=== PATIENT | male | born 1940 | race Caucasian/White ===

== ENCOUNTER → 2020-05-13 10:40 | Outpatient (CLI) | payer MEDICARE, SELFPAY ==
--- NOTE | 2020-05-13 10:50 | XR_ITS ---
PROCEDURE: XR CHEST 2V CLINICAL HISTORY: CHEST PAIN AT REST,SOB,CAD COMPARISON: No exams were available for comparison FINDINGS: There has been a prior CABG. Bipolar pacemaker is present from left subclavian approach. There is blunting of the CP angles on both sides suggesting small bilateral pleural effusions. Patchy density is present in the right lung base and may be related to an area of atelectasis or patchy infiltrate. There are mild degenerative changes in the thoracic spine. No acute bony abnormalities. IMPRESSION: Blunting of the CP angles bilaterally suggesting small bilateral pleural effusions or pleural thickening with atelectasis or infiltrate in the right lung base Dictated by: Juan Pablo Brambila MD 05/13/2020 11:21 Juan Pablo Brambila MD in [place] 05/13/2020 11:21
[2020-05-13 12:21] LABS: Basophils % 0.8 % (0.1-2.0); Eosinophils # 0.1 K/mm3 (0.0-0.4); Eosinophils % 1.8 % (0.1-12.0); Hematocrit 42.4 % (42.0-52.0); Hemoglobin 14.4 g/dL (14.1-18.0); Lymphocytes # 1.2 K/mm3 (0.7-4.5); Lymphocytes % 21.4 % (10-50); Mean Corpuscular Hemoglobin 33.9 pg (27.0-31.2); Mean Corpuscular Volume 99.8 fl (80-94); Monocytes # 0.3 K/mm3 (0.1-1.0); Monocytes % 5.3 % (1.7-9.3); Neutrophils % 70.7 % (37.0-80.0); Platelet Count 190 K/mm3 (142-424); Red Blood Count 4.25 M/mm3 (4.60-6.20); Red Cell Distribution Width 13.1 % (11.5-17.5); White Blood Count 5.7 K/mm3 (4.8-10.8)
[2020-05-13 13:27] LABS: Coronavirus 19 IgG Antibody Negative (Negative); Coronavirus 19 IgM Antibody Negative (Negative)
[2020-05-13 13:37] LABS: Chloride 104 mmol/L (98-107)
[2020-05-13 13:38] LABS: Potassium 4.9 mmoL/L (3.5-5.1); Sodium 142 mmol/L (136-145)
[2020-05-13 13:40] LABS: Alanine Aminotransferase 25 U/L (12-78); Alkaline Phosphatase 58 U/L (38-126); Anion Gap 12.9 mEq/L (5-15); Aspartate Amino Transferase 31 U/L (17-59); Bilirubin,Total 1.6 mg/dl (0.2-1.3); Blood Urea Nitrogen 13 mg/dl (9-20); Carbon Dioxide 30 mmol/L (22.0-30.0); Estimated Glomerular Filt Rate 93 ml/min (>60); GFR (African American) 113 ML/MIN (>60)
[2020-05-13 13:41] LABS: Albumin Level 4.3 g/dl (3.5-5.0); Albumin/Globulin Ratio 1.6 (1.1-1.8); Calcium 9.9 mg/dl (8.4-10.2); Globulin 2.7 g/dL (1.3-3.2); Glucose 140 mg/dl (74-100); Magnesium 1.8 mg/dl (1.6-2.3)
[2020-05-13 13:46] LABS: NT Pro Brain Natriuretic Pep. 2150 pg/mL (0-450)
[2020-05-13 13:50] LABS: Troponin I < 0.01 ng/ml (0.00-0.034)
== END ==
PROVIDERS: PCP Family Medicine; Visit Provider Nurse Practitioner Family
DX: R07.9 Chest pain, unspecified (principal); R06.02 Shortness of breath; I25.810 Atherosclerosis of coronary artery bypass graft(s) without angina pectoris
CPT/HCPCS: 36415; 71046; 80053; 83735; 83880; 84484; 85025; 86328

== ENCOUNTER → 2021-04-25 13:35 | Outpatient (POV) | payer MEDICARE, SELFPAY | PROVIDERS: Visit Provider Dermatology | DX: Z00.00 Encounter for general adult medical examination without abnormal findings (principal) ==

== ENCOUNTER → 2021-10-03 14:54 | Outpatient (CLI) | payer MEDICARE, SELFPAY ==
--- NOTE | 2021-10-03 14:59 | XR_ITS ---
FINAL REPORT CLINICAL HISTORY: Right arm pain. COMPARISON: None. FINDINGS: 2 views of the right forearm were obtained. There is no acute fracture or dislocation. There are mild degenerative changes at the wrist. There is an old ulnar styloid avulsion fracture. There are probable erosions in the ulnar styloid region. This is not well visualized due to bony overlap. There are no soft tissue abnormalities. IMPRESSION: Mild degenerative change without evidence of acute process. Reviewed, Interpreted and Dictated by Bailey Burgos MD Transcribed by Albertina Morales PA-C Authenticated by Bailey Burgos MD on 10/03/2021 04:40:39 PM [facility]
== END ==
PROVIDERS: PCP Nurse Practitioner Family; Visit Provider Nurse Practitioner Family
DX: S40.021A Contusion of right upper arm, initial encounter (principal); S59.911A Unspecified injury of right forearm, initial encounter; M79.601 Pain in right arm
CPT/HCPCS: 73090

== ENCOUNTER → 2021-10-10 10:15 | Outpatient (POV) | payer MEDICARE, SELFPAY | PROVIDERS: Visit Provider Dermatology | DX: Z00.00 Encounter for general adult medical examination without abnormal findings (principal) ==

== ENCOUNTER → 2022-01-02 15:20 | Outpatient (CLI) | payer MEDICARE, SELFPAY ==
[2022-01-04 09:18] LABS: Prostate Specific Ag 1.1 ng/mL (0.0-4.0)
== END ==
PROVIDERS: PCP Nurse Practitioner Family; Visit Provider Urology
DX: R97.20 Elevated prostate specific antigen [PSA] (principal)
CPT/HCPCS: 36415; 84153; 84154

== ENCOUNTER → 2023-06-18 14:51 | Outpatient (POV) | payer MEDICARE, SELFPAY | PROVIDERS: Visit Provider Dermatology | DX: Z00.00 Encounter for general adult medical examination without abnormal findings (principal) ==

== ENCOUNTER → 2023-06-25 10:09 | Outpatient (CLI) | payer MEDICARE, SELFPAY ==
[2023-06-25 16:58] LABS: Basophils # 0.1 K/mm3 (0-0.2); Basophils % 1.7 % (0.1-2.0); Eosinophils # 0.2 K/mm3 (0.0-0.4); Eosinophils % 3.6 % (0.1-12.0); Hematocrit 44.2 % (42.0-52.0); Hemoglobin 14.8 g/dL (14.1-18.0); Lymphocytes % 24.5 % (10-50); Mean Corpuscular HGB Conc 33.4 g/dL (31.8-35.4); Mean Corpuscular Hemoglobin 35.7 pg (27.0-31.2); Mean Corpuscular Volume 106.9 fl (80-94); Mean Platelet Volume 8.1 fl (7.4-10.4); Monocytes # 0.3 K/mm3 (0.1-1.0); Monocytes % 7.7 % (1.7-9.3); Neutrophils # 2.5 K/mm3 (1.8-7.8); Neutrophils % 62.5 % (37.0-80.0); Platelet Count 165 K/mm3 (142-424); Red Blood Count 4.13 M/mm3 (4.60-6.20)
[2023-06-25 19:05] LABS: Alanine Aminotransferase 31 U/L (12-78); Albumin Level 4.5 g/dl (3.5-5.0); Albumin/Globulin Ratio 1.7 (1.1-1.8); Alkaline Phosphatase 79 U/L (38-126); Aspartate Amino Transferase 44 U/L (17-59); Bilirubin,Total 0.5 mg/dl (0.2-1.3); Blood Urea Nitrogen 29 mg/dl (9-20); Calcium 9.7 mg/dl (8.4-10.2); Carbon Dioxide 30 mmol/L (22.0-30.0); Chloride 101 mmol/L (98-107); Chol/HDL Ratio 3.1 (1-3.5); Cholesterol 165 mg/dl (140-200); Estimated Glomerular Filt Rate 81 ml/min (>60); GFR (African American) 98 ML/MIN (>60); Globulin 2.6 g/dL (1.3-3.2); Glucose 116 mg/dl (74-100); HDL Cholesterol 53 mg/dl (40-60); Sodium 140 mmol/L (136-145); Total Protein,Serum 7.1 g/dl (6.3-8.2); Triglycerides 61 mg/dl (30-150); VLDL Cholesterol 12 mg/dL (0-40)
[2023-06-25 19:17] LABS: Direct LDL Cholesterol 94.66 mg/dL (100-129)
[2023-06-25 19:37] LABS: Thyroid Stimulating Hormone 0.77 uIU/mL (0.465-4.68)
[2023-06-25 19:56] LABS: Vitamin B12 953 pg/mL (239-931)
[2023-06-25 21:03] LABS: Ferritin 99.9 ng/ml (17.9-464)
== END ==
PROVIDERS: PCP Nurse Practitioner Family; Visit Provider Nurse Practitioner Family
DX: D50.9 Iron deficiency anemia, unspecified (principal); R20.9 Unspecified disturbances of skin sensation; E03.9 Hypothyroidism, unspecified; E11.9 Type 2 diabetes mellitus without complications; E78.5 Hyperlipidemia, unspecified
CPT/HCPCS: 80053; 80061; 82607; 82728; 83036; 84443; 85025

== ENCOUNTER → 2023-07-30 10:29 | Outpatient (POV) | payer MEDICARE, SELFPAY | PROVIDERS: PCP Nurse Practitioner Family; Visit Provider Dermatology | DX: Z00.00 Encounter for general adult medical examination without abnormal findings (principal) ==

== ENCOUNTER 2023-09-09 14:23 | Outpatient (CLI) | payer MEDICARE, SELFPAY | END 2023-09-09 23:59 | LOC: LAB.DROPOF 14:23 | PROVIDERS: PCP Nurse Practitioner Family; Visit Provider Nurse Practitioner Family | DX: J02.9 Acute pharyngitis, unspecified (principal); R05.9 Cough, unspecified; U07.1 COVID-19 | CPT/HCPCS: 87070; 87635 ==

== ENCOUNTER 2023-09-18 15:24 | Outpatient (CLI) | payer MEDICARE, SELFPAY ==
--- NOTE | 2023-09-18 15:30 | XR_ITS ---
FINAL REPORT CLINICAL HISTORY: abd pain, constipation COMPARISON: None FINDINGS: SINGLE VIEW ABDOMEN A single view of the abdomen was obtained. There is a nonobstructive bowel gas pattern. There is a large amount of stool in the colon. Stones are noted in the lower pole of the left renal collecting system measuring up to 1 cm in greatest dimension. IMPRESSION: Left renal stones up to 1 cm. Large amount of stool in the colon. Reviewed, Interpreted and Dictated by Yoan Pandey MD Transcribed by Aleah Zee Authenticated and [facility]
--- NOTE | 2023-09-18 15:30 | XR_ITS ---
FINAL REPORT CLINICAL HISTORY: COVID-19 COMPARISON: 05/13/2020 FINDINGS: Two views of the chest were obtained. The heart size and pulmonary vascularity are within normal limits. A left subclavian ICD is present as well as evidence of a prior midline sternotomy. The mediastinum is normal. No acute pulmonary abnormality is identified. There is no pneumothorax. There is moderate to severe degenerative change of the thoracic spine with multilevel anterior fusions. IMPRESSION: No active cardiopulmonary disease. Moderate to severe thoracic degenerative change. Reviewed, Interpreted and Dictated by Quinn Gao III, MD Transcribed by Aleah Zee Authenticated and [facility]
[2023-09-18 16:19] LABS: Basophils % 0.5 % (0.1-2.0); Eosinophils # 0.1 K/mm3 (0.0-0.4); Eosinophils % 1.4 % (0.1-12.0); Hematocrit 45.5 % (42.0-52.0); Hemoglobin 15.2 g/dL (14.1-18.0); Lymphocytes # 0.9 K/mm3 (0.7-4.5); Lymphocytes % 16.6 % (10-50); Mean Corpuscular HGB Conc 33.4 g/dL (31.8-35.4); Mean Corpuscular Hemoglobin 34.1 pg (27.0-31.2); Mean Corpuscular Volume 102.1 fl (80-94); Mean Platelet Volume 7.8 fl (7.4-10.4); Monocytes # 0.3 K/mm3 (0.1-1.0); Monocytes % 5.6 % (1.7-9.3); Neutrophils # 4.1 K/mm3 (1.8-7.8); Neutrophils % 75.9 % (37.0-80.0); Platelet Count 224 K/mm3 (142-424); Red Blood Count 4.46 M/mm3 (4.60-6.20); Red Cell Distribution Width 13.3 % (11.5-17.5); White Blood Count 5.3 K/mm3 (4.8-10.8)
[2023-09-18 16:31] LABS: D-Dimer 0.51 ug/mL (0.0-0.5)
[2023-09-18 16:36] LABS: Alanine Aminotransferase 29 U/L (12-78); Albumin/Globulin Ratio 1.7 (1.1-1.8); Alkaline Phosphatase 67 U/L (38-126); Anion Gap 10.3 mEq/L (5-15); Aspartate Amino Transferase 34 U/L (17-59); Bilirubin,Total 0.5 mg/dl (0.2-1.3); Blood Urea Nitrogen 28 mg/dl (9-20); Calcium 8.9 mg/dl (8.4-10.2); Carbon Dioxide 33 mmol/L (22.0-30.0); Chloride 102 mmol/L (98-107); Estimated Glomerular Filt Rate 81 ml/min (>60); GFR (African American) 98 ML/MIN (>60); Globulin 2.4 g/dL (1.3-3.2); Glucose 123 mg/dl (74-100); Potassium 4.3 mmoL/L (3.5-5.1); Sodium 141 mmol/L (136-145); Total Protein,Serum 6.4 g/dl (6.3-8.2)
[2023-09-18 17:04] LABS: Chol/HDL Ratio 3.8 (1-3.5); Cholesterol 132 mg/dl (140-200); HDL Cholesterol 35 mg/dl (40-60); Triglycerides 79 mg/dl (30-150); VLDL Cholesterol 16 mg/dL (0-40)
[2023-09-18 17:15] LABS: Direct LDL Cholesterol 83.49 mg/dL (100-129)
[2023-09-18 17:37] LABS: Prostate Specific Ag Screen 0.9 ng/ml (0.0-4.0); Thyroid Stimulating Hormone 1.12 uIU/mL (0.465-4.68)
[2023-09-18 17:56] LABS: Vitamin B12 993 pg/mL (239-931)
== END 2023-09-18 23:59 ==
LOC: LAB 15:26
PROVIDERS: PCP Nurse Practitioner Family; Visit Provider Nurse Practitioner Family
DX: K59.00 Constipation, unspecified (principal); R10.9 Unspecified abdominal pain; U07.1 COVID-19; E78.5 Hyperlipidemia, unspecified; E03.9 Hypothyroidism, unspecified; Z12.5 Encounter for screening for malignant neoplasm of prostate; I10 Essential (primary) hypertension; D64.9 Anemia, unspecified
CPT/HCPCS: 71046; 74018; 80053; 80061; 82607; 83735; 84443; 85025; 85378; G0103

== ENCOUNTER 2023-10-16 11:36 | Outpatient (CLI) | payer MEDICARE, SELFPAY ==
--- NOTE | 2023-10-16 11:39 | XR_ITS ---
FINAL REPORT CLINICAL HISTORY: f/u pneumonia, CHF COMPARISON: None FINDINGS: Two views of the chest were obtained. Cardiomegaly is present along with a midline sternotomy. There is a left subclavian ICD present. The mediastinum is normal. No acute pulmonary abnormality is identified. There is no pneumothorax. There is moderate degenerative change in the thoracic spine with multilevel bony fusions. IMPRESSION: Cardiomegaly. Moderate thoracic spine degenerative change as described. Reviewed, Interpreted and Dictated by Quinn Gao III, MD Transcribed by Aleah Zee Authenticated and [facility]
== END 2023-10-16 23:59 ==
PROVIDERS: PCP Nurse Practitioner Family; Visit Provider Nurse Practitioner Family
DX: I50.9 Heart failure, unspecified (principal); J18.0 Bronchopneumonia, unspecified organism; I51.7 Cardiomegaly
CPT/HCPCS: 71046

== ENCOUNTER 2023-10-29 14:53 | Outpatient (CLI) | payer MEDICARE, SELFPAY ==
[2023-10-29 15:24] LABS: Basophils % 0.9 % (0.1-2.0); Eosinophils # 0.4 K/mm3 (0.0-0.4); Eosinophils % 9.4 % (0.1-12.0); Hematocrit 43.5 % (42.0-52.0); Hemoglobin 13.9 g/dL (14.1-18.0); Lymphocytes # 0.9 K/mm3 (0.7-4.5); Lymphocytes % 21.1 % (10-50); Mean Corpuscular Hemoglobin 34.3 pg (27.0-31.2); Mean Corpuscular Volume 107.1 fl (80-94); Mean Platelet Volume 8.4 fl (7.4-10.4); Monocytes # 0.3 K/mm3 (0.1-1.0); Monocytes % 7.5 % (1.7-9.3); Neutrophils # 2.8 K/mm3 (1.8-7.8); Neutrophils % 61.3 % (37.0-80.0); Platelet Count 140 K/mm3 (142-424); Red Blood Count 4.06 M/mm3 (4.60-6.20); Red Cell Distribution Width 13.5 % (11.5-17.5); White Blood Count 4.5 K/mm3 (4.8-10.8)
[2023-10-29 16:10] LABS: Alanine Aminotransferase 33 U/L (12-78); Albumin/Globulin Ratio 1.6 (1.1-1.8); Alkaline Phosphatase 93 U/L (38-126); Anion Gap 7.6 mEq/L (5-15); Aspartate Amino Transferase 37 U/L (17-59); Bilirubin,Total 0.6 mg/dl (0.2-1.3); Blood Urea Nitrogen 26 mg/dl (9-20); Calcium 9.7 mg/dl (8.4-10.2); Carbon Dioxide 34 mmol/L (22.0-30.0); Chloride 102 mmol/L (98-107); Estimated Glomerular Filt Rate 80 ml/min (>60); GFR (African American) 97 ML/MIN (>60); Globulin 2.5 g/dL (1.3-3.2); Glucose 114 mg/dl (74-100); Potassium 4.6 mmoL/L (3.5-5.1); Sodium 139 mmol/L (136-145); Total Protein,Serum 6.5 g/dl (6.3-8.2)
[2023-10-29 16:19] LABS: NT Pro Brain Natriuretic Pep. 2030 pg/mL (0-450)
[2023-10-29 16:40] LABS: Thyroid Stimulating Hormone 0.76 uIU/mL (0.465-4.68)
== END 2023-10-29 23:59 ==
LOC: LAB.DROPOF 14:54
PROVIDERS: PCP Nurse Practitioner Family; Visit Provider Nurse Practitioner Family
DX: I50.9 Heart failure, unspecified (principal); E03.9 Hypothyroidism, unspecified; I10 Essential (primary) hypertension
CPT/HCPCS: 80053; 83880; 84443; 85025

== ENCOUNTER 2023-11-13 16:29 | Outpatient (CLI) | payer MEDICARE, SELFPAY ==
--- NOTE | 2023-11-13 16:41 | XR_ITS ---
PROCEDURE INFORMATION: Exam: XR Right Foot Complete; Alignment Exam date and time: 11/13/2023 4:55 PM Age: 83 years old Clinical indication: Pain; Foot; Right; Additional info: Right foot pain TECHNIQUE: Imaging protocol: Radiologic exam of the right foot. Views: 3 or more views. COMPARISON: No relevant prior studies available. FINDINGS: Bones/joints: No fracture or dislocation. Well-defined erosion in the lateral aspect of the head of the 5th metatarsal. No significant arthritis. Small posterior and plantar surface calcaneal enthesophytes. Soft tissues: Surgical clips in the soft tissues adjacent to the medial malleolus. IMPRESSION: 1. No acute findings. 2. Well-defined erosion in the lateral aspect of the head of the 5th metatarsal could be seen from gout or an adjacent soft tissue neoplasm.
== END 2023-11-13 23:59 ==
PROVIDERS: PCP Nurse Practitioner Family; Visit Provider Nurse Practitioner Family
DX: M79.671 Pain in right foot (principal)
CPT/HCPCS: 73630

== ENCOUNTER 2024-03-03 10:14 | Outpatient (POV) | payer MEDICARE, SELFPAY ==
--- OUTSIDE RECORDS SUMMARY | 2024-03-03 10:16 | XMS_ITS ---
Author Name Jase Valdes Address [address] [place] [id number] Organization Unknown Address [address] [place] [id number] ALLERGIES AND ADVERSE REACTIONS No information ASSESSMENT No information CHIEF COMPLAINT No information MEDICATIONS No information OBJECTIVE DATA No information PHYSICAL EXAMINATION No information TREATMENT PLAN Planned Care Start Date Provider Encounter for Check-up [phone] AC Quintana PROBLEMS No information RESULTS No information REVIEW OF SYSTEMS No information SUBJECTIVE DATA No information VITAL SIGNS No information
== END 2024-03-03 23:59 | disposition home or self-care (01) ==
PROVIDERS: PCP Nurse Practitioner Family; Visit Provider Dermatology
DX: Z00.00 Encounter for general adult medical examination without abnormal findings (principal)

== ENCOUNTER 2024-07-21 16:46 | Outpatient (RCR) | payer MEDICARE, SELFPAY | END 2024-07-21 17:30 | disposition home or self-care (01) | LOC: PT 16:46 | PROVIDERS: Visit Provider Nurse Practitioner Family | DX: M23.52 Chronic instability of knee, left knee (principal) | CPT/HCPCS: 97760 ==

== ENCOUNTER 2024-07-21 17:10 | Outpatient (CLI) | payer MEDICARE, SELFPAY ==
--- OUTSIDE RECORDS SUMMARY | 2024-07-21 17:14 | XMS_ITS | Clinical Summary ---
[facility] Address [address] [place] [address] Care Team Providers Care Room Service Associate Name Role Phone Allyson Avery APRN Primary Care Provider + [phone] Allergies No known active allergies Medications multivitamin (THERAGRAN) tablet tablet Take 1 tablet by mouth 2 (two) times a day. Active Methylsulfonylm ethane (MSM PO) Take 1,000 mg by mouth 2 (two) times a day. Active aspirin 81 MG EC tablet Take 1 tablet by mouth Daily. Active Docusate Calcium (STOOL SOFTENER PO) Take 300 mg by mouth Daily. Taking 1 tablet four times daily. Active levothyroxine (SYNTHROID, LEVOTHROID) 75 MCG tablet Take 1 tablet by mouth Daily. Active allopurinol (ZYLOPRIM) 100 MG tablet Take 1 tablet by mouth Daily. Active ferrous sulfate 325 (65 FE) MG tablet Take 1 tablet by mouth Daily With Breakfast. Taking BID Active B Complex Vitamins (VITAMIN B COMPLEX PO) Take by mouth Daily. Active clopidogrel (PLAVIX) 75 MG tablet TAKE ONE TABLET BY MOUTH DAILY 90 tablet 3 2 Active carvedilol (COREG) 25 MG tablet Take 1 tablet by mouth 2 (Two) Times a Day. 180 tablet 3 3 Active Additional Information Patient taking differently: 12.5 mgOral 2 Times Daily, Taking 12.5 BID, Reported on 02/06/2024 spironolactone (ALDACTONE) 25 MG tablet 4 Active ranolazine (RANEXA) 500 MG 12 hr tablet Take 1 tablet by mouth 2 (Two) Times a Day. 4 Active lisinopril (PRINIVIL,ZESTR IL) 10 MG tablet Take 1 tablet by mouth Daily. 4 Active Arginine 1000 MG tablet Take 1,000 mg by mouth Daily. 4 Active clobetasol propionate (TEMOVATE) 0.05 % cream Apply 1 Application topically to the appropriate area as directed 2 (Two) Times a Day. Active Clobetasol Propionate Emulsion 0.05 % topical foam Apply topically to the appropriate area as directed 2 (Two) Times a Day. 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 Moderate lesion distal to the MONROY to the LAD 50-70% by Dr. Silva @ [facility] 12/09/14 LHC: 1/3 grafts occluded, BMS to SVG to OM2/OM3. EF 35-40% Failed attempt at PCI to OM1 distribution due to tortuosity and heavy calcification. BMS to proximal LAD. 04/29/07 CABG: MONROY to LAD, SVG to D1 & OM2, SVG to RCA. Hyperlipidemia LDL goal <70 03/15/2021 Essential hypertension 03/15/2021 Hypothyroidism (acquired) 03/15/2021 SSS (sick sinus syndrome) 03/15/2021 Overview (01/08/2022): ?? 03/16/20 Upgrade of his dual-chamber pacemaker to [facility] dual-chamber ICD Cardiac defibrillator in situ 05/11/2020 Cardiac pacemaker in situ 08/02/2017 Sick sinus syndrome 07/05/2017 Hypertensive disorder 01/16/2016 Coronary atherosclerosis 07/15/2015 Hyperlipidemia 07/15/2015 Gout Arthritis Ischemic cardiomyopathy Overview (01/08/2022): ?? 03/16/20 Upgrade of his dual-chamber pacemaker to [facility] dual-chamber ICD Encounters Date Type Department Care Team Description 05/17/2024 Refill [facility] [address] [facility] [address] [place] [address] Mansoor Silva MD Med Refill from Last 3 Months Family History Medical History Relation Name Comments No Known Problems Sister Relation Name Status Comments Father Mother Sister Alive Social History Tobacco Use Types Packs/Day Years Used Date Smoking Tobacco: Never Smokeless Tobacco: Never Tobacco Cessation:Counseling Given: No Alcohol Use Standard Drinks/Week Comments Not Currently 0 (1 standard drink = 0.6 oz pur e alcohol) AUDIT-C Answer Date Recorded Q1: How often do you have a drink containing alc ohol? Never 03/17/2021 Average Number of Drinks Not on file 021 Frequency of Binge Drinking Not on file 03/02 Abuse Screen Answer Date Recorded Unsafe at Home or Work/School Not on file Feels Threatened by Someone? Not on file 08/2023 Does Anyone Keep You from Co ntacting Others or Doint Things Outside the Home? Not on file 06/13/2023 Physical Sign of Abuse Present Not on file 1 Housing Stability Answer Date Recorded Current Living Arrangements Not on file 06/02 Potentially Unsafe Housing Conditions Not on karolina e 06/13/2023 Family and Community Support Answer Bernard e Recorded Help with Day-to-Day Activities Not on file 06/13/2023 Lonely or Isolated Not on file 06/13/2023 Employment Answer Date Recorded Do you want help finding or keeping work or a jimmie b? Not on file 06/13/2023 Disabilities Answer Date Recorded Concentrating, Remembering, or Making Decisions Difficulty Not on file 06/13/2023 Doing Errands Independently Difficulty Not on fi le 06/13/2023 Education Answer Date Recorded Help with school or training? Not on file Preferred Language Not on file 06/13/2023 Sex and Gender Information Value Date Recorded Sex Assigned at Not on file Legal Sex Male 1:25 PM EDT Gender Identity Not on file Sexual Orientation Not on file Last Filed Vital Signs Vital Sign Reading Time Taken Comments Blood Pressure 130/64 02/06/2024 11:24 AM EDT Pulse 79 02/06/2024 11:24 AM EDT Temperature - - Respiratory Rate - - Oxygen Saturation 97% 02/06/2024 11:24 AM EDT Inhaled Oxygen Concentration - - Weight 69.9 kg (154 lb) 02/06/2024 11:24 AM EDT Height 177.8 cm (5' 10 ) 02/06/2024 11:24 AM EDT Body Mass Index 22.1 02/06/2024 11:24 AM EDT Plan of Treatment Upcoming Encounters Date Type Department Care Team (Late st Contact Info) Description 11/12/2024 2:15 PM EDT Office Visit [facility] [address] [facility] [address] [place] [phone] Mansoor Silva MD [address] [facility] [address] [place] [address] 01/21/2025 2:30 PM EDT Office Visit [facility] [address] [facility] [address] [place] [address] Monica Quintero, DNP, TALENT ACQUISITION ASSISTANT [address] [facility] [address] [place] [address] Health Maintenance Due Date Last Done Comments URINE MICROALBUMIN 1940 Pneumococcal Vaccine 65+ (1 of 2 - PCV) 1945 ZOSTER VACCINE (1 of 2) 1989 RSV Vaccine - Adults (1 - 1- dose 75+ series) 2014 ANNUAL WELLNESS VISIT 03/15/2021 DIABETIC EYE EXAM 06/13/2021 06/13/2020 HEMOGLOBIN A1C 12/25/2023 06/25/2023, 05/0 12/2022, 06/28/2022, Additional history exists INFLUENZA VACCINE 04/02/2024 06/25/2023, , 06/25/2023, Additional history exists COVID-19 Vaccine (4 - 2023-2 5 season) 2024 10/02/2021, 12/02/2020, 11/03/2020 LIPID PANEL 09/18/2024 09/18/2023, 06/03, 01/04/2023, Additional history exists TDAP/TD VACCINES (2 - Tdap) 04/18/2032 04/18/2022 Insurance MEDICARE A & B [facility] OPTIONS Advance Directives Documents on File Type Date Recorded Patient Cardiology Manager Expl anation POWER OF ELECTRONIC OPERATOR - SCAN 03/20/2021 10:31 AM POWER OF ELECTRONIC OPERATOR, [facility], 05/31/2020 LIVING WILL - SCAN 03/20/2021 10:31 AM IBAN BUTLER, 06/23/2017 Care Teams Room Service Associate Relationship Specialty Start Date End Date Allyson Avery APRN [address] [place] [address] [place] [address] PCP - General Internal Medicine 07/22/23
--- OUTSIDE RECORDS SUMMARY | 2024-07-21 17:14 | XMS_ITS | Encounter Summary ---
[facility] Address [address] [place] [address] Care Team Providers Care Jewelry Model Maker Name Role Phone AveryAllyson la YOKO Primary Care Provider + [phone] Reason for Visit * Reason Comments Med Refill Encounter Details Date Type Department Care Team (Late st Contact Info) Description 05/17/2024 Refill [facility] [address] [facility] [address] [place] [phone] Mansoor Silva MD [address] [place] [address] Med Refill Social History Tobacco Use Types Packs/Day Years Used Date Smoking Tobacco: Never Smokeless Tobacco: Never Alcohol Use Standard Drinks/Week Comments Not Currently [...] on file Sexual Orientation Not on file documented as of this encounter Plan of Treatment Upcoming Encounters Date Type Department Care Team (Late st Contact Info) Description 11/12/2024 2:15 PM EDT Office Visit [facility] [address] [facility] [address] [place] [address] Mansoor Silva MD 1720 [facility] [address] [place] [address] 01/21/2025 2:30 PM EDT Office Visit [facility] [address] [facility] [address] [place] [phone] Monica Quintero, DNP, PARTS DEPARTMENT MANAGER [address] [facility] [address] [place] [address] documented as of this encounter Visit Diagnoses Not on filedocumented in this encounter Care Teams Jewelry Model Maker Relationship Specialty Start Date End Date Allyson Avery APRN [facility] [address] [address] PCP - General Internal Medicine 07/22/23 documented as of this encounter
--- OUTSIDE RECORDS SUMMARY | 2024-07-21 17:14 | XMS_ITS | Encounter Summary ---
[facility] Address [address] [place] [address] Care Team Providers Care Carbon Paste Mixer Operator Name Role Phone AveryAllyson la YOKO Primary Care Provider + [phone] Reason for Visit * Reason Comments Med Refill Encounter Details Date Type Department Care Team (Late st Contact Info) Description 02/26/2024 Refill [facility] [address] [facility] [address] [place] [phone] Mansoor Silva MD [address] [place] [address] Med Refill Social History Tobacco Use Types [...] Description 11/12/2024 2:15 PM EDT Office Visit [facility] [address] [facility] [address] [place] [address] Mansoor Silva MD [address] [facility] [address] [place] [address] 01/21/2025 2:30 PM EDT Office Visit [facility] [address] [facility] [address] [place] [phone] Monica Quintero, DNP, SENIOR REACTOR OPERATOR [address] [facility] [address] [place] [address] documented as of this encounter Visit Diagnoses Not on filedocumented in this encounter Care Teams Carbon Paste Mixer Operator Relationship Specialty Start Date End Date Allyson Avery APRN [facility] [address] [address] PCP - General Internal Medicine 07/22/23 documented as of this encounter
--- OUTSIDE RECORDS SUMMARY | 2024-07-21 17:14 | XMS_ITS | Encounter Summary ---
Author Organization [facility] Address [address] [place] [address] Care Team Providers Care Assembler Corncob Pipes Name Role Phone Bennie Allyson YOKO Primary Care Provider + [phone] Encounter Details Date Type Department Care Team (Late st Contact Info) Description 10/11/2023 Telephone [facility] [address] [facility] [address] [place] [phone] Mansoor Silva MD 1720 [facility] [address] [place] [address] Social History Tobacco Use Types Packs/Day Years [...] on file documented as of this encounter Miscellaneous Notes * Telephone Encounter - Addie Lundberg RN - 10/11/2023 9:40 AM EST SW pt son, this morning. He had some lower BP, feeling dizzy, and fatigued. BP this morning 102/50,repeat 100/58, HR running in the 70's. Pt took all his BP meds this morning, and hasn't drank hardly any water. 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 Son reports this is the only time this has happened, and when Dr. Silva saw him yesterday he was feeling good with SBP 110. Advised to have him eat a salty snack, and drink at least 64 oz of water today. Instructed ptson to proceed to the ER if BP drops below 100 and pts symptoms worsen. Pt verbalized understandingand agreeable to plan documented in this encounter Plan of Treatment Upcoming Encounters Date Type Department Care Team (Late st Contact Info) Description 11/12/2024 2:15 PM EDT Office Visit [facility] [address] [facility] [address] [place] [address] Mansoor Silva MD [address] [facility] [address] [place] [address] 01/21/2025 2:30 PM EDT Office Visit [facility] [address] [facility] [address] [place] [address] Monica Quintero, DNP, JAVA USER INTERFACE DEVELOPER [address] [place] [address] documented as of this encounter Visit Diagnoses Not on filedocumented in this encounter Care Teams Assembler Corncob Pipes Relationship Specialty Start Date End Date Allyson Avery, JAVA USER INTERFACE DEVELOPER [facility], [phone] [address] PCP - General Internal Medicine 07/22/23 documented as of this encounter
--- OUTSIDE RECORDS SUMMARY | 2024-07-21 17:14 | XMS_ITS | Encounter Summary ---
[facility] Address [address] [place] [address] Care Team Providers Care Burlap Worker Name Role Phone Bennie Allyson YOKO Primary Care Provider + [phone] Reason for Visit * Reason Comments Coronary artery disease of b ypass graft of shawnee heart wit Patient was admitted to hospital in [place] on Saturday about 5am. 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; Hyperlipidemia LDL goal <70; SSS (sick sinus syndrome); Chronic systolic congestive heart failure Social History Tobacco Use Types Packs/Day Years [...] on file documented as of this encounter Last Filed Vital Signs Vital Sign Reading Time Taken Comments Blood Pressure 110/70 10/10/2023 10:58 AM EST Pulse 71 10/10/2023 10:58 AM EST Temperature - - Respiratory Rate - - Oxygen Saturation 99% 10/10/2023 10:58 AM EST Inhaled Oxygen Concentration - - Weight 71 kg (156 lb 9.6 oz) 10/10/2023 10:58 AM EST Height 175.3 cm (5' 9 ) 10/10/2023 10:58 AM EST Body Mass Index 23.13 10/10/2023 10:58 AM EST documented in this encounter Progress Notes * Mansoor Silva MD - 10/10/2023 11:15 AM ESTAssociated Order(s): ECG 12 Lead Post-Procedure Diagnose(s): Ischemic cardiomyopathy; Cardiac defibrillator in situ; Chronic systolic congestive heart failure OFFICE VISIT NOTE [facility] Name: Meet Menchaca Date: 10/10/2023 : 1940 REFERRING/PRIMARY PROVIDER: Allyson Avery APRN Chief Complaint Patient presents with Coronary artery disease of bypass graft of shawnee heart wit Patient was admitted to hospital in [place] on Saturday about 5am. HPI: Meet Menchaca is a 83 y.o. male who presents today for follow up of CAD, ischemic cardiomyopathy, [facility] ICD. Associated history of diabetes mellitus, hypertension, hyperlipidemia. Historyof CABG, I performed PCI of SVG- OM 10/2016 at [facility], as well as PCI of the MONROY-LAD anastomosis with a 2.5 x 60 mm Synergy EMANUEL, 06/2017, occluded SVG-PDA and shawnee RCA, patent SVG-OM. Dual- chamber pacemaker upgraded [place] ICD [place] [address] Will Pérez, he suffered two inappropriate shocks, found to have loose set screw which was repaired 03/2020. EF 35-40% by most recent echo 06/2021, moderate MR. Stress MPS 06/2021 with inferior infarct, no ischemia. He was hospitalized at [facility] just 2 days ago, discharged yesterday. Had Covid about a month ago, and was hospitalized with pneumonia and CHF exacerbation. He was evaluated by Dr. Vaughn, who mentioned possible upgrade to BiV ICD. His medical regimen was also changed around with addition of Entresto, Jardiance, Spironolactone and Lasix. He has not yet started the Entresto as his pharmacy was out of it, currently still on Lisinopril. He states he is back to his baseline in terms of breathing. 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 Denies any angina or anginal equivalent. ROS:Pertinent positives as listed in the HPI. All other systems reviewed and negative. Past Medical History: Diagnosis Date Arthritis CAD (coronary artery disease) Diabetes Gout Kidney stones Past Surgical History: Procedure Laterality Date FOREARM SURGERY TOOTH EXTRACTION WRIST SURGERY Social History Socioeconomic History Marital status: Tobacco Use Smoking status: Never Smokeless tobacco: Never Vaping Use Vaping Use: Never used Substance and Sexual Activity Alcohol use: Not Currently Drug use: Never Sexual activity: Defer Family History Problem Relation Age of Onset No Known Problems Sister No Known Allergies Current Outpatient Medications Medication Instructions allopurinol (ZYLOPRIM) 100 mg, Oral, Daily amiodarone (PACERONE) 200 mg, Oral, Daily aspirin 81 mg, Oral, Daily azithromycin (ZITHROMAX) 250 MG tablet B Complex Vitamins (VITAMIN B COMPLEX PO) Oral, Daily carvedilol (COREG) 25 mg, Oral, 2 Times Daily clopidogrel (PLAVIX) 75 MG tablet TAKE ONE TABLET BY MOUTH DAILY clotrimazole (LOTRIMIN) 1 % cream 1 application , Topical, 2 Times Daily colesevelam (WELCHOL) 3.75 g, Oral, 2 Times Daily Docusate Calcium (STOOL SOFTENER PO) 300 mg, Oral, Daily ferrous sulfate 325 mg, Oral, Daily With Breakfast furosemide (LASIX) 20 MG tablet Jardiance 10 MG tablet tablet L-ARGININE PO 1 tablet, Oral, Daily levothyroxine (SYNTHROID, LEVOTHROID) 75 mcg, Oral, Daily lisinopril (PRINIVIL,ZESTRIL) 20 mg, Oral, Daily memantine (NAMENDA) 5 mg, Oral, 2 Times Daily Methylsulfonylmethane (MSM PO) 1,000 mg, Oral, 2 times daily multivitamin (THERAGRAN) tablet tablet 1 tablet, Oral, 2 times daily ranolazine (RANEXA) 500 mg, Oral, 2 Times Daily, Taking 1 daily. rosuvastatin (CRESTOR) 40 mg, Oral, Weekly spironolactone (ALDACTONE) 25 MG tablet triamcinolone (KENALOG) 0.5 % cream 1 application , Topical, 2 Times Daily Ventolin HFA 108 (90 Base) MCG/ACT inhaler Vitals: 10/10/23 1058 BP: 110/70 BP Location: Right arm Patient Position: Sitting Cuff Size: Adult Pulse: 71 SpO2: 99% Weight: 71 kg (156 lb 9.6 oz) Height: 175.3 cm (69 ) Body mass index is 23.13 kg/m??. PHYSICAL EXAM: General Appearance: well developed well nourished Neck: thyroid not enlarged supple Respiratory: no respiratory distress normal breath sounds no rales Cardiovascular: no jugular venous distention regular rhythm apical impulse normal S1 normal, S2 normal no S3, no S4 no murmur no rub, no thrill lower extremity edema: none Skin: warm, dry RESULTS: ECG 12 Lead Date/Time: 10/10/2023 12:08 PM Performed by: Sade Penaloza PA-C Authorized by: Sade Penaloza PA-C Comparison: compared with previous ECG from 12/27/2022 Similar to previous ECG Rhythm: paced BPM: 71 Pacing: dual chamber pacing Clinical impression: abnormal EKG [facility]. Ramana ICD: DDDR mode, RA >99%, RV >99%, 3.6 years battery life remaining, no events Results for orders placed during the hospital encounter of 06/29/21 Adult Transthoracic Echo Complete W/ Cont if Necessary Per Protocol Interpretation Summary ?? Calculated biplane EF 38%. left ventricular ejection fraction appears to be 36 - 40%. Left ventricular systolic function is moderately decreased. ?? Left ventricular diastolic function is consistent with (grade II w/high LAP) pseudonormalization. ?? Left atrial volume is moderately increased. ?? Moderately reduced right ventricular systolic function noted. ?? Estimated right ventricular systolic pressure from tricuspid regurgitation is mildly elevated (35-45 mmHg). Calculated right ventricular systolic pressure from tricuspid regurgitation is 35 mmHg. ?? Moderate mitral valve regurgitation is present. ?? Elevated right and left heart filling pressures. 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 Moderate lesion distal to the MONROY to the LAD 50-70% by Dr. Silva @ [facility] 12/09/14 LHC: 1/3 grafts occluded, BMS to SVG to OM2/OM3. EF 35-40% Failed attempt at PCI to OM1 distribution due to tortuosity and heavy calcification. BMS to proximal LAD. 04/29/07 CABG: MONROY to LAD, SVG to D1 & OM2, SVG to RCA. Chronic systolic congestive heart failure Overview 06/29/21 Echo: LVEF 36-40%, grade II diastolic dysfunction, moderate MR, moderately reduced RVSF PLAN: 1. CAD: Continue aspirin, Plavix, rosuvastatin, and carvedilol Continue exercise Asymptomatic without angina 2. Chronic systolic heart failure: Recent exacerbation in setting of Covid pneumonia Echo at [facility]SH 10/2023: EF 30-35%, moderate MR, moderate TR, RVSP 52 mmHg Agree with current medical therapy, including Lisinopril, Coreg, Jardiance, Spironolactone and Lasix Saint Ramana ICD in place- today's in office interrogation shows 99% A-V Pacing Discussed risks/benefits of BiV ICD, and at this time, will treat conservatively with medical therapy, but can consider in the future for repeated decompensations. 3. Presence of [facility] Ramana ICD: See interrogation above Continue in office interrogation every 6-9 months Remote interrogations every 3 months At this time, defer upgrade to BiV ICD after discussion with patient and his son 4. Hypertension: Goal blood pressure less than 130/80 BP at target 5. Hyperlipidemia: Goal LDL less than 70, recent LDL 83 on labs 09/18/23 Continue high intensity statin therapy with Crestor 40mg weekly, intolerant to daily or every otherday use Advance Care Planning ACP discussion was held with the patient during this visit. Patient has an advance directive in EMRwhich is still valid. Follow-up Return in about 4 months (around 02/08/2024). Scribed for Mansoor Silva MD by Sade Penaloza PA-C. 10/10/2023 12:14 EST I,Mansoor Silva M.D., personally performed the services described in this documentation as scribedby the above named individual in my presence, and it is both accurate and complete. Mansoor Silva MD, [facility], [facility] Cardiology 10/11/23 15:42 EST documented in this encounter Plan of Treatment Upcoming Encounters Date Type Department Care Team (Late st Contact Info) Description 11/12/2024 2:15 PM EDT Office Visit [facility] [address] [place] [phone] Mansoor Silva MD [address] [facility] [address] [place] [address] 01/21/2025 2:30 PM EDT Office Visit [facility] [address] [place] [phone] Monica Quintero, DNP, BLENDING PLANT OPERATOR [address] [place] [address] Scheduled Orders Name Type Priority Associated Diagnoses Orde r Schedule SCANNED - CARDIOLOGY Cardiac Services Ordered: 10/10/2023 documented as of this encounter Procedures Procedure Name Priority Date/Time Associated Diagnosis Comments ECG 12-LEAD Routine 10/10/2023 12:08 PM EST Ischemic cardiomyopathy Cardiac defibrillator in situ Chronic systolic congestive heart failure SCANNED - LABS 10/10/2023 documented in this encounter Results * (ABNORMAL) ECG 12-LEAD (10/10/2023 12:08 PM EST) Narrative Mansoor Silva MD - 10/10/2023 12:08 PM EST Mansoor Silva MD ? 10/11/2023 ??3:42 PM ECG 12 Lead Date/Time: 10/10/2023 12:08 PM Performed by: Sade Penaloza PA-C Authorized by: Sade Penaloza PA-C ??Comparison: compared with previous ECG from 12/27/2022 Similar to previous ECG Rhythm: paced BPM: 71 Pacing: dual chamber pacing Clinical impression: abnormal EKG Sade Penaloza PA-C ECG ORDERABLES Edit ed Result - Final * SCANNED - LABS (10/10/2023) [facility] Onbase LAB BLOOD ORDERABLES Final Re sult documented in this encounter Visit Diagnoses Diagnosis Ischemic cardiomyopathy- Primary Other specified forms of chronic ischemic heart disease 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
--- OUTSIDE RECORDS SUMMARY | 2024-07-21 17:14 | XMS_ITS | Encounter Summary ---
[facility] Address [address] [place] [address] Care Team Providers Care Toy Packer Name Role Phone Allyson Avery YOKO Primary Care Provider + [phone] Reason for Visit * Reason Comments Med Refill Encounter Details Date Type Department Care Team (Late st Contact Info) Description 07/11/2023 Refill [facility] NEUR[facility] [address] [facility] [address] [place] [address] Monica Quintero, DNP, UNIVERSITY EXTENSION SPECIALIST [address] [facility] [address] [place] [address] Mild cognitive impairment Social History Tobacco Use Types Packs/Day Years [...] encounter Miscellaneous Notes * Telephone Encounter - Opal Barber MA - 07/12/2023 8:04 AM EST Rx Refill Note Requested Prescriptions Pending Prescriptions Disp Refills memantine (NAMENDA) 5 MG tablet [Pharmacy Med Name: MEMANTINE HCL 5 MG TABLET] 90 tablet 1 Sig: TAKE 1 TABLET BY MOUTH DAILY Last filled: 07/08/23 90 with 1 refill. Last office visit with prescribing clinician: 01/18/2023 Next office visit with prescribing clinician: 07/22/2023 Too soon to refill. Opal Barber MA 07/12/23, 08:04 EST documented in this encounter Plan of Treatment Upcoming Encounters Date Type Department Care Team (Late st Contact Info) Description 11/12/2024 2:15 PM EDT Office Visit [facility] [address] [facility] [address] [place] [address] Mansoor Silva MD [address] [facility] [address] [place] [address] 01/21/2025 2:30 PM EDT Office Visit [facility] NEUROLOG[facility] [address] [facility] [address] [place] [phone] Monica Quintero, SAMUEL, UNIVERSITY EXTENSION SPECIALIST [address] [facility] [address] [place] [address] documented as of this encounter Visit Diagnoses Diagnosis Mild cognitive impairment Mild cognitive impairment, so stated documented in this encounter Care Teams Toy Packer Relationship Specialty Start Date End Date Allyson Avery APRN PCP - General Internal Medicine 03/15/21 07/21/23 documented as of this encounter
--- OUTSIDE RECORDS SUMMARY | 2024-07-21 17:14 | XMS_ITS | Encounter Summary ---
[facility] [address] [place] [address] Care Team Providers Care Full Time Babysitter Name Role Phone AveryAllyson la YOKO Primary Care Provider + [phone] Reason for Visit * Reason Comments Med Refill Encounter Details Date Type Department Care Team (Late st Contact Info) Description 08/30/2023 Refill [facility]IOLOG[facility] [address] [facility] [address] [place] [phone] Mansoor Silva MD [address] [place] [address] Med Refill Social History Tobacco Use Types [...] Description 11/12/2024 2:15 PM EDT Office Visit [facility] [address] [facility] [address] [place] [phone] Mansoor Silva MD [address] [facility] [address] [place] [address] 01/21/2025 2:30 PM EDT Office Visit [facility] NEUR[facility] [address] [facility] [address] [place] [phone] Monica Quintero, DNP, GRADUATING MACHINE OPERATOR [address] [facility] [address] [place] [address] documented as of this encounter Visit Diagnoses Not on filedocumented in this encounter Care Teams Full Time Babysitter Relationship Specialty Start Date End Date Allyson Avery APRN [facility] [address] [address] PCP - General Internal Medicine 07/22/23 documented as of this encounter
--- OUTSIDE RECORDS SUMMARY | 2024-07-21 17:14 | XMS_ITS | Encounter Summary ---
Author Organization [facility] Address [address] [place] [address] Care Team Providers Care Hoop Coiler Name Role Phone Bennie Allyson YOKO Primary Care Provider + [phone] Encounter Details Date Type Department Care Team (Late st Contact Info) Description 10/14/2023 Telephone [facility] C[facility]IOLOG[facility] [address] [place] [phone] Mansoor Silva MD [address] [facility] [address] [place] [address] Social History Tobacco Use Types Packs/Day Years [...] encounter Miscellaneous Notes * Telephone Encounter - Dorinda Hu RN - 10/15/2023 4:39 PM EST Images from the original note were not included. Mansoor Silva MD You26 minutes ago (4:12 PM) If he is taking lasix daily, have him stop it and replace with jardiance. If he's not taking lasix daily, then just stay off jardiance. No alternative. Relayed recommendations to patient. * Telephone Encounter - Dorinda Hu RN - 10/14/2023 10:18 AM EST Patient's son called today to report patient frequently feels tired and does not get out of bed after taking Jardiance. Son reports patient's BP as being systolic 89-92 after taking medication. He stopped taking yesterday and BP is now running 110s and does not feel as tired. Patient's son wondering if there is a different medication to try at this time? Please advise! Thanks, Dorinda PINEDO documented in this encounter Plan of Treatment Upcoming Encounters Date Type Department Care Team (Late st Contact Info) Description 11/12/2024 2:15 PM EDT Office Visit [facility] C[facility]IOLOG[facility] [address] [facility] [address] [place] [address] Mansoor Silva MD [address] [facility] [address] [place] [address] 01/21/2025 2:30 PM EDT Office Visit [facility] NEUROLOG[facility] [address] [facility] [address] [place] [phone] Monica Quintero, DNP, BICYCLE DESIGNER [address] [facility] [address] [place] [address] documented as of this encounter Visit Diagnoses Not on filedocumented in this encounter Care Teams Hoop Coiler Relationship Specialty Start Date End Date Allyson Avery APRN [address] [place] [address] PCP - General Internal Medicine 07/22/23 documented as of this encounter
--- OUTSIDE RECORDS SUMMARY | 2024-07-21 17:14 | XMS_ITS | Encounter Summary ---
[facility] [address] [place] [address] Care Team Providers Care Security Management Specialist Name Role Phone Allyson Avery YOKO Primary Care Provider + [phone] Reason for Visit * Reason Comments Mild cognitive impairment Encounter Details Date Type Department Care Team (Late st Contact Info) Description 07/22/2023 2:30 PM EST Office Visit [facility] [address] [facility] [address] [place] [address] Monica Quintero, DNP, CONCILIATION COURT JUDGE [address] [facility] [address] [place] [address] Mild cognitive impairment Social History [...] Sign Reading Time Taken Comments Blood Pressure 154/84 07/22/2023 2:18 PM EST Pulse 80 07/22/2023 2:18 PM EST Temperature - - Respiratory Rate - - Oxygen Saturation 98% 07/22/2023 2:18 PM EST Inhaled Oxygen Concentration - - Weight 73.9 kg (163 lb) 07/22/2023 2:18 PM EST Height 177.8 cm (5' 10 ) 07/22/2023 2:18 PM EST Body Mass Index 23.39 07/22/2023 2:18 PM EST documented in this encounter Progress Notes * Monica Quintero, DNP, CONCILIATION COURT JUDGE - 07/22/2023 2:30 PM EST Neuro Office Visit Encounter Date: 07/22/2023 Patient Name: Meet Menchaca : 1940 Chief Complaint: Chief Complaint Patient presents with Mild cognitive impairment History of Present Illness: Meet Menchaca is a 82 y.o. male who is here today in Neurology for memory loss Last visit 01/18/2023 w me-start namenda, check labs. Labs:TSH, T4, vit b12, cbc, folate-nml Memory Loss MMSE Meds:OTC Appetite:good appetite Sleep:sleeps well ADLs:independent Gait/Falls:had 2-3 falls since last visit while on uneven surface while weed eating. Unsteady at times Language:no slurred speech Dysphagia:no choking on food Driving:no accidents. Has not been lost Hallucinations:none, however pt and son both have seen their Grandfather in the house. 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 Living situation: Finances:son manages POA: son and daughter PMH: htn, thyroid disease, HLD, htn, Gout, BPH, DM, SSS, cardiomyopathy PSH: CABG, stents, Pacemaker FH: SH:-tob Subjective Past Medical History: Past Medical History: Diagnosis Date Arthritis CAD (coronary artery disease) Diabetes Gout Kidney stones Past Surgical History: Past Surgical History: Procedure Laterality Date FOREARM SURGERY TOOTH EXTRACTION WRIST SURGERY Family History: Family History Problem Relation Age of Onset No Known Problems Sister Social History: Social History Socioeconomic History Marital status: Tobacco Use Smoking status: Never Smokeless tobacco: Never Vaping Use Vaping Use: Never used Substance and Sexual Activity Alcohol use: Not Currently Drug use: Never Sexual activity: Defer Medications: Current Outpatient Medications: allopurinol (ZYLOPRIM) 100 MG tablet, Take 1 tablet by mouth Daily., Disp: , Rfl: amiodarone (PACERONE) 200 MG tablet, Take 1 tablet by mouth Daily., Disp: , Rfl: aspirin 81 MG EC tablet, Take 1 tablet by mouth Daily., Disp: , Rfl: B Complex Vitamins (VITAMIN B COMPLEX PO), Take by mouth Daily., Disp: , Rfl: carvedilol (COREG) 25 MG tablet, Take 1 tablet by mouth 2 (Two) Times a Day. (Patient taking differently: Take 1 tablet by mouth 2 (Two) Times a Day. BID), Disp: 180 tablet, Rfl: 3 clopidogrel (PLAVIX) 75 MG tablet, TAKE ONE TABLET BY MOUTH DAILY, Disp: 90 tablet, Rfl: 3 clotrimazole (LOTRIMIN) 1 % cream, Apply 1 application topically to the appropriate area as directed 2 (Two) Times a Day., Disp: , Rfl: colesevelam (WELCHOL) 3.75 g pack pack, Take 1 packet by mouth 2 (Two) Times a Day., Disp: , Rfl: Docusate Calcium (STOOL SOFTENER PO), Take 300 mg by mouth Daily., Disp: , Rfl: ferrous sulfate 325 (65 FE) MG tablet, Take 1 tablet by mouth Daily With Breakfast., Disp: , Rfl: L-ARGININE PO, Take 1 tablet by mouth Daily., Disp: , Rfl: levothyroxine (SYNTHROID, LEVOTHROID) 75 MCG tablet, Take 1 tablet by mouth Daily., Disp: , Rfl: lisinopril (PRINIVIL,ZESTRIL) 20 MG tablet, Take 1 tablet by mouth Daily., Disp: , Rfl: memantine (NAMENDA) 5 MG tablet, Take 1 tablet by mouth 2 (Two) Times a Day., Disp: 180 tablet, Rfl: 1 Methylsulfonylmethane (MSM PO), Take 1,000 mg by mouth 2 (two) times a day., Disp: , Rfl: multivitamin (THERAGRAN) tablet tablet, Take 1 tablet by mouth 2 (two) times a day., Disp: , Rfl: ranolazine (RANEXA) 500 MG 12 hr tablet, Take 1 tablet by mouth 2 (Two) Times a Day. Taking 1 daily., Disp: , Rfl: rosuvastatin (CRESTOR) 40 MG tablet, TAKE ONE TABLET BY MOUTH ONCE WEEKLY, Disp: 12 tablet, Rfl: 3 triamcinolone (KENALOG) 0.5 % cream, Apply 1 application topically to the appropriate area as directed 2 (Two) Times a Day., Disp: , Rfl: Allergies: No Known Allergies PHQ-9 Total Score: STEADI Fall Risk Assessment was completed, and patient is at MODERATE risk for falls. Assessment completed on:07/22/2023 Objective Physical Exam: Physical Exam Neurological: Mental Status: He is oriented to person, place, and time. Gait: Gait is intact. Deep Tendon Reflexes: Reflex Scores: Bicep reflexes are 2+ on the right side and 2+ on the left side. Brachioradialis reflexes are 2+ on the right side and 2+ on the left side. Patellar reflexes are 2+ on the right side and 2+ on the left side. Achilles reflexes are 2+ on the right side and 2+ on the left side. Psychiatric: Speech: Speech normal. Neurologic Exam Mental Status Oriented to person, place, and time. Follows 3 step commands. Attention: normal. Concentration: normal. Speech: speech is normal Level of consciousness: alert Knowledge: consistent with education. Normal comprehension. Cranial Nerves CN III, IV, Right pupil: Accommodation: intact. Left pupil: Accommodation: intact. CN III: no CN III palsy CN : no CN palsy Nystagmus: none Diplopia: none Upgaze: normal Downgaze: normal Conjugate gaze: present CN VII Facial expression full, symmetric. CN VIII Hearing: intact CN XII CN XII normal. Motor Exam Muscle bulk: normal Overall muscle tone: normal Strength Right biceps: 5/5 Left biceps: 5/5 Right triceps: 5/5 Left triceps: 5/5 Right interossei: 5/5 Left interossei: 5/5 Right quadriceps: 5/5 Left quadriceps: 5/5 Right anterior tibial: 5/5 Left anterior tibial: 5/5 Right posterior tibial: 5/5 Left posterior tibial: 5/5 Sensory Exam Light touch normal. Gait, Coordination, and Reflexes Gait Gait: normal Tremor Resting tremor: absent Action tremor: absent Reflexes Right brachioradialis: 2+ Left brachioradialis: 2+ Right biceps: 2+ Left biceps: 2+ Right patellar: 2+ Left patellar: 2+ Right achilles: 2+ Left achilles: 2+ Right puddler pile driving: 2+ Left puddler pile driving: 2+ Vital Signs: Vitals: 07/22/23 1418 BP: 154/84 Pulse: 80 SpO2: 98% Weight: 73.9 kg (163 lb) Height: 177.8 cm (70 ) Body mass index is 23.39 kg/m??. Assessment / Plan Assessment/Plan: Diagnoses and all orders for this visit: 1. Mild cognitive impairment Comments: Inc namenda to 5 mg bid. MMSE and [place] and next visit Orders: - memantine (NAMENDA) 5 MG tablet; Take 1 tablet by mouth 2 (Two) Times a Day. Dispense: 180 tablet; Refill: 1 Patient Education: Reviewed medications, potential side effects and signs and symptoms to report. Discussed risk versus benefits of treatment plan with patient and/or family- including medications, labs and radiology that may be ordered. Addressed questions and concerns during visit. Patient and/or family verbalized un derstanding and agree with plan. Instructed to call the office with any questions and report to ER with any life-threatening symptoms. Follow Up: Return in about 6 months (around 01/20/2024) for Recheck. During this visit the following were done: Labs Reviewed [] Labs Ordered [] Radiology Reports Reviewed [] Radiology Ordered [] PCP Records Reviewed [] Referring Provider Records Reviewed [] ER Records Reviewed [] Hospital Records Reviewed [] History Obtained From Family [] Radiology Images Reviewed [] Other Reviewed [x] Records Requested [] Monica Quintero DNP, APRN documented in this encounter Plan of Treatment Upcoming Encounters Date Type Department Care Team (Late st Contact Info) Description 11/12/2024 2:15 PM EDT Office Visit [facility] [address] [facility] [address] [place] [address] Mansoor Silva MD [address] [facility] [address] [place] [address] 01/21/2025 2:30 PM EDT Office Visit [facility] NEUR[facility] [address] [facility] [address] [place] [phone] Monica Quintero DNP, YOKO [address] [facility] [address] [place] [address] documented as of this encounter Visit Diagnoses Diagnosis Mild cognitive impairment Mild cognitive impairment, so stated documented in this encounter Care Teams Security Management Specialist Relationship Specialty Start Date End Date Allyson Avery APRN Critical access hospital0 [facility] [address] [address] PCP - General Internal Medicine 07/22/23 documented as of this encounter
--- OUTSIDE RECORDS SUMMARY | 2024-07-21 17:14 | XMS_ITS | Encounter Summary ---
[facility] [address] [place] [address] Care Team Providers Care Livestock Auctioneer Name Role Phone AveryAllyson la YOKO Primary Care Provider + [phone] Reason for Visit * Reason Comments Med Refill Encounter Details Date Type Department Care Team (Late st Contact Info) Description 06/17/2023 Refill [facility] C[facility]IOLOGY [address] [facility] [address] [place] [phone] Mansoor Silva MD [address] [place] [address] Med Refill Social History Tobacco Use Types [...] Description 11/12/2024 2:15 PM EDT Office Visit [facility]IOLOG[facility] [address] [facility] [address] [place] [address] Mansoor Silva MD [address] [facility] [address] [place] [address] 01/21/2025 2:30 PM EDT Office Visit [facility]UR[facility] [address] [facility] [facility] [address] [place] [phone] Monica Quintero, SAMUEL, MATERIALS SCIENTIST [address] [facility] [address] [place] [address] documented as of this encounter Visit Diagnoses Not on filedocumented in this encounter Care Teams Livestock Auctioneer Relationship Specialty Start Date End Date Allyson Avery APRN PCP - General Internal Medicine 03/15/21 07/21/23 documented as of this encounter
--- OUTSIDE RECORDS SUMMARY | 2024-07-21 17:14 | XMS_ITS | Encounter Summary ---
[facility] [address] [place] [address] Care Team Providers Care Mental Health Assistant Name Role Phone Allyson Avery YOKO Primary Care Provider + [phone] Reason for Visit * Reason Comments Med Refill Encounter Details Date Type Department Care Team (Late st Contact Info) Description 02/26/2024 Refill [facility] NEUROLOGY [address] [facility] [facility] [address] [place] [address] Monica Quintero, DNP, TRANSITIONAL CARE NURSE [address] [facility] [address] [place] [address] Mild cognitive impairment Social History [...] Telephone Encounter - Opal Barber MA - 02/26/2024 7:34 AM EDT Rx Refill Note Requested Prescriptions Pending Prescriptions Disp Refills memantine (NAMENDA) 5 MG tablet [Pharmacy Med Name: MEMANTINE HCL 5 MG TABLET] 180 tablet 1 Sig: TAKE 1 TABLET BY MOUTH TWICE A DAY Last filled: 07/22/23 180 with 1 refill. Last office visit with prescribing clinician: 01/22/2024 Next office visit with prescribing clinician: 01/21/2025 Sent in 180 with 3 refills. Opal Barber MA 02/26/24, 07:35 EDT documented in this encounter Plan of Treatment Upcoming Encounters Date Type Department Care Team (Late st Contact Info) Description 11/12/2024 2:15 PM EDT Office Visit [facility]ARDIOLOGY [address] [place] [address] Mansoor Silva MD [address] [place] [address] 01/21/2025 2:30 PM EDT Office Visit [facility] NEUROLOGY [address] [facility] [address] [place] [phone] Monica Quintero, SAMUEL, TRANSITIONAL CARE NURSE [address] [facility] [address] [place] [address] documented as of this encounter Visit Diagnoses Diagnosis Mild cognitive impairment Mild cognitive impairment, so stated documented in this encounter Care Teams Mental Health Assistant Relationship Specialty Start Date End Date Allyson Avery, YOKO [address] [facility] [address] [facility] [address] [place] [address] PCP - General Internal Medicine 07/22/23 documented as of this encounter
--- OUTSIDE RECORDS SUMMARY | 2024-07-21 17:14 | XMS_ITS | Encounter Summary ---
[facility] [address] [place] [address] Care Team Providers Care Water Engineer Name Role Phone Allyson Avery YOKO Primary Care Provider + [phone] Reason for Visit * Reason Comments Med Refill Encounter Details Date Type Department Care Team (Late st Contact Info) Description 07/07/2023 Refill [facility] NEUROLOGY [address] [facility] [address] [place] [address] Monica Quintero, DNP, OSHA INSPECTOR [address] [facility] [address] [place] [address] Mild cognitive impairment Social History [...] encounter Miscellaneous Notes * Telephone Encounter - Josy Moncada MA - 07/08/2023 10:00 AM EST Rx Refill Note Requested Prescriptions Pending Prescriptions Disp Refills memantine (NAMENDA) 5 MG tablet [Pharmacy Med Name: MEMANTINE HCL 5 MG TABLET] 90 tablet Sig: TAKE 1 TABLET BY MOUTH DAILY Last filled: 04/12/23 with 2 sent in Last office visit with prescribing clinician: 01/18/2023 Next office visit with prescribing clinician: 07/22/2023 Josy Moncada MA 07/08/23, 10:00 EST documented in this encounter Plan of Treatment Upcoming Encounters Date Type Department Care Team (Late st Contact Info) Description 11/12/2024 2:15 PM EDT Office Visit [facility] [address] [facility] [address] [place] [address] Mansoor Silva MD [address] [facility] [address] [place] [address] 01/21/2025 2:30 PM EDT Office Visit [facility] NEUROLOG[facility] [address] [facility] [address] [place] [phone] Monica Quintero, SAMUEL, OSHA INSPECTOR [address] [facility] [address] [place] [address] documented as of this encounter Visit Diagnoses Diagnosis Mild cognitive impairment Mild cognitive impairment, so stated documented in this encounter Care Teams Water Engineer Relationship Specialty Start Date End Date Allyson Avery APRN PCP - General Internal Medicine 03/15/21 07/21/23 documented as of this encounter
--- OUTSIDE RECORDS SUMMARY | 2024-07-21 17:14 | XMS_ITS | Encounter Summary ---
[facility] [address] [place] [address] Care Team Providers Care Technical Asst Name Role Phone Allyson Avery YOKO Primary Care Provider + [phone] Reason for Visit * Reason Comments Mild cognitive impairment Encounter Details Date Type Department Care Team (Late st Contact Info) Description 01/22/2024 2:30 PM EDT Office Visit [facility] [address] [facility] [address] [place] [address] Monica Quintero, DNP, INWEAVER [address] [facility] [address] [place] [address] Moderate cognitive impairment (Primary Dx) Social History Tobacco Use Types Packs/Day Years [...] Sign Reading Time Taken Comments Blood Pressure 138/76 01/22/2024 2:29 PM EDT Pulse 74 01/22/2024 2:29 PM EDT Temperature - - Respiratory Rate - - Oxygen Saturation 98% 01/22/2024 2:29 PM EDT Inhaled Oxygen Concentration - - Weight 71.7 kg (158 lb) 01/22/2024 2:29 PM EDT Height 175.3 cm (5' 9.02 ) 01/22/2024 2:29 PM ED T Body Mass Index 23.32 01/22/2024 2:29 PM EDT documented in this encounter Progress Notes * Monica Quintero, SAMUEL, INWEAVER - 01/22/2024 2:30 PM EDT Neuro Office Visit Encounter Date: 01/22/2024 Patient Name: Meet Menchaca : 1940 PCP: Allyson Avery APRN Chief Complaint: Chief Complaint Patient presents with Mild cognitive impairment History of Present Illness: Meet Menchaca is a 83 y.o. male who is here today in Neurology for memory loss. Last visit 07/22/2023- Increase namenda to 5 bid. MMSE and MOCA next visit. Memory Loss MMSE 27/30 01/18/23 MMSE 27/30 01/22/24 Recall 2/3 items. Disoriented to year and date. Meds:OTC Appetite:good appetite Sleep:sleeps well ADLs:independent Gait/Falls:had 2-3 falls since last visit while on uneven surface while weed eating. Unsteady at times Language:no slurred speech Dysphagia:no choking on food Driving:no accidents. Has not been lost. Only drives in his home town Hallucinations:none, however pt and son both have seen their Grandfather in the house. 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 He is seeing Dermatology. PMH: htn, thyroid disease, HLD, htn, Gout, BPH, DM, SSS, cardiomyopathy, CAD PSH: CABG, stents, Pacemaker FH:- SH:-tob Subjective Past Medical History: Past Medical [...] Never Smokeless tobacco: Never Vaping Use Vaping status: Never Used Substance and Sexual Activity Alcohol use: Not Currently Drug use: Never Sexual activity: Defer Medications: Current Outpatient Medications: allopurinol (ZYLOPRIM) 100 MG tablet, Take 1 tablet by mouth Daily., Disp: , Rfl: amiodarone (PACERONE) 200 MG tablet, TAKE ONE TABLET BY MOUTH DAILY, Disp: 90 tablet, Rfl: 1 Arginine 1000 MG tablet, Take 1,000 mg by mouth Daily., Disp: , Rfl: aspirin 81 MG EC tablet, Take 1 tablet by mouth Daily., Disp: , Rfl: B Complex Vitamins (VITAMIN B COMPLEX PO), Take by mouth Daily., Disp: , Rfl: carvedilol (COREG) 25 MG tablet, Take 1 tablet by mouth 2 (Two) Times a Day. (Patient taking differently: Take 1 tablet by mouth 2 (Two) Times a Day. Taking 12.5 BID), Disp: 180 tablet, Rfl: 3 clopidogrel (PLAVIX) 75 MG tablet, TAKE ONE TABLET BY MOUTH DAILY, Disp: 90 tablet, Rfl: 3 clotrimazole (LOTRIMIN) 1 % cream, Apply 1 Application topically to the appropriate area as directed 2 (Two) Times a Day., Disp: , Rfl: Docusate Calcium (STOOL SOFTENER PO), Take 300 mg by mouth Daily. Taking 1 tablet four times daily., Disp: , Rfl: ferrous sulfate 325 (65 FE) MG tablet, Take 1 tablet by mouth Daily With Breakfast. Taking BID, Disp: , Rfl: levothyroxine (SYNTHROID, LEVOTHROID) 75 MCG tablet, Take 1 tablet by mouth Daily., Disp: , Rfl: lisinopril (PRINIVIL,ZESTRIL) 10 MG tablet, Take 1 tablet by mouth [...] hr tablet, Take 1 tablet by mouth Daily., Disp: , Rfl: rosuvastatin (CRESTOR) 40 MG tablet, TAKE ONE TABLET BY MOUTH ONCE WEEKLY, Disp: 12 tablet, Rfl: 3 spironolactone (ALDACTONE) 25 MG tablet, , Disp: , Rfl: triamcinolone (KENALOG) 0.5 % cream, Apply 1 Application topically to the appropriate area as directed 2 (Two) Times a Day., Disp: , Rfl: Ventolin HFA 108 (90 Base) MCG/ACT inhaler, , Disp: , Rfl: Allergies: No Known Allergies PHQ-9 Total Score: STEADI Fall Risk Assessment was completed, and patient is at HIGH risk for falls. Assessment completed on:01/22/2024 Objective Physical Exam: Physical Exam Neurological: Mental Status: He is oriented to person, place, and time. Coordination: Qyggnb-Ytjk-Tyjnap Test, Heel to Miranda Test and Romberg Test normal. Gait: Gait is intact. Deep Tendon Reflexes: Reflex Scores: Tricep reflexes are 2+ on the right side and 2+ on the left side. Bicep reflexes are 2+ on the right [...] Normal comprehension. Cranial Nerves CN III, IV, CN III: no CN III palsy CN [...] Gait, Coordination, and Reflexes Gait Gait: normal Coordination Romberg: negative Finger to nose coordination: normal Heel to miranda coordination: normal Tremor Resting tremor: absent Action tremor: absent Reflexes Right brachioradialis: 2+ Left brachioradialis: 2+ Right biceps: 2+ Left biceps: 2+ Right triceps: 2+ Left triceps: 2+ Right patellar: 2+ Left patellar: 2+ Right achilles: 2+ Left achilles: 2+ Right overage shortage and damage clerk: 2+ Left overage shortage and damage clerk: 2+ Vital Signs: Vitals: 01/22/24 1429 BP: 138/76 Pulse: 74 SpO2: 98% Weight: 71.7 kg (158 lb) Height: 175.3 cm (69.02 ) Body mass index is 23.32 kg/m??. Assessment / Plan Assessment/Plan: Diagnoses and all orders for this visit: 1. Moderate cognitive impairment (Primary) Comments: MMSE stable but MOCA 19.Cont memantine Patient Education: Reviewed medications, potential side effects [...] life-threatening symptoms. Follow Up: Return in about 1 year (around 01/21/2025) for Recheck. During this visit the following were done: Labs Reviewed [] Labs Ordered [] Radiology Reports Reviewed [] Radiology Ordered [] PCP Records Reviewed [] Referring Provider Records Reviewed [] ER Records Reviewed [] Hospital Records Reviewed [] History Obtained From Family [] Radiology Images Reviewed [] Other Reviewed [] Records Requested [] Monica Quintero DNP, APRN documented in this encounter Plan of Treatment Upcoming Encounters Date Type Department Care Team (Late st Contact Info) Description 11/12/2024 2:15 PM EDT Office Visit [facility] [address] [facility] [address] [place] [phone] Mansoor Silva MD [address] [facility] 400 [place] [address] 01/21/2025 2:30 PM EDT Office Visit [facility] [address] [facility] [address] [place] [phone] Monica Quintero DNP, APRN [address] [facility] [address] [place] [address] documented as of this encounter Procedures Procedure Name Priority Date/Time Associated Diagnosis Comments SCANNED COGNITIVE ASSESSMENT 01/22/2024 SCANNED COGNITIVE ASSESSMENT 01/22/2024 documented in this encounter Results * COGNITIVE ASSESSMENT SCAN (01/22/2024) Monica Quintero DNP, APRN NEUROLOGY ORDERABL ES Final Result * COGNITIVE ASSESSMENT SCAN (01/22/2024) Monica Quintero DNP, APRN NEUROLOGY ORDERABL ES Final Result documented in this encounter Visit Diagnoses Diagnosis Moderate cognitive impairment- Primary documented in this encounter Care Teams Technical Asst Relationship Specialty Start Date End Date Allyson Avery APRN [address] [place] [address] PCP - General Internal Medicine 07/22/23 documented as of this encounter
--- OUTSIDE RECORDS SUMMARY | 2024-07-21 17:14 | XMS_ITS | Encounter Summary ---
[facility] Address [address] [place] [address] Care Team Providers Care Manager Retail Sales Name Role Phone AveryAllyson la YOKO Primary Care Provider + [phone] Reason for Visit * Reason Comments Cardiomyopathy Encounter Details Date Type Department Care Team (Late st Contact Info) Description 02/06/2024 11:40 AM EDT Office Visit [facility] CARDIOLOGY [address] [address] Sade Penaloza PA-C [address] [facility] [address] [place] [address] Ischemic cardiomyopathy (Primary Dx); Coronary artery disease of bypass graft of [place] heart with stable angina pectoris; Chronic systolic congestive heart failure; Hyperlipidemia LDL goal <70; Essential hypertension; SSS (sick sinus syndrome); Cardiac defibrillator in situ Social History Tobacco Use Types Packs/Day Years [...] Mass Index 22.1 02/06/2024 11:24 AM EDT documented in this encounter Progress Notes * Sade Penaloza PA-C - 02/06/2024 11:40 AM EDT OFFICE VISIT NOTE [facility] CARD[facility] Name: Meet Menchaca Date: 02/06/2024 : 1940 REFERRING/PRIMARY PROVIDER: Allyson Avery APRN Chief Complaint Patient presents with Cardiomyopathy HPI: Meet Menchaca is a 83 y.o. male who presents today for follow up of CAD, ischemic cardiomyopathy, [place] ICD. Associated history of diabetes mellitus, hypertension, hyperlipidemia. Historyof CABG, I performed PCI of SVG- OM 10/2016 at [facility], as well as PCI of the MONROY-LAD anastomosis with a 2.5 x 60 mm Synergy EMANUEL, 06/2017, occluded SVG-PDA and [place] RCA, patent SVG-OM. Dual- chamber pacemaker upgraded [place] [address] Will Pérez, he suffered two inappropriate shocks, found to have loose set screw which was repaired 03/2020. EF 35-40% by most recent echo 06/2021, moderate MR. Stress MPS 06/2021 with inferior infarct, no ischemia. Had admission at [facility] for CHF after Covid infection in October. He is doing well since then, denies any HERNANDEZ, orthopnea, LE edema. No chest pain. He remains active, does yard work and housework, weed-eats without any concerns. He had issues with hypotension on Lasix and Jardiance, he is off both at this time. His lisinopril and Coreg dose were reduced and he is feeling better. Home BP log reviewed and most BPs are 130-140s, also weighs himself daily. ROS:Pertinent positives as listed in the HPI. [...] Daily amiodarone (PACERONE) 200 mg, Oral, Daily Arginine 1,000 mg, Oral, Daily aspirin 81 mg, Oral, Daily B Complex Vitamins (VITAMIN B COMPLEX PO) Oral, Daily carvedilol (COREG) 25 mg, Oral, 2 Times Daily clobetasol propionate (TEMOVATE) 0.05 % cream 1 Application, Topical, 2 Times Daily Clobetasol Propionate Emulsion 0.05 % topical foam Topical, 2 Times Daily clopidogrel (PLAVIX) 75 MG tablet TAKE ONE TABLET BY MOUTH DAILY Docusate Calcium (STOOL SOFTENER PO) 300 mg, Oral, Daily, Taking 1 tablet four times daily. ferrous sulfate 325 mg, Oral, Daily With Breakfast, Taking BID levothyroxine (SYNTHROID, LEVOTHROID) 75 mcg, Oral, Daily lisinopril (PRINIVIL,ZESTRIL) 10 mg, Oral, Daily memantine (NAMENDA) 5 mg, Oral, 2 Times Daily Methylsulfonylmethane (MSM PO) 1,000 mg, Oral, 2 times daily multivitamin (THERAGRAN) tablet tablet 1 tablet, Oral, 2 times daily ranolazine (RANEXA) 500 mg, Oral, 2 Times Daily rosuvastatin (CRESTOR) 40 mg, Oral, Weekly spironolactone (ALDACTONE) 25 MG tablet Vitals: 02/06/24 1124 BP: 130/64 BP Location: Left arm Patient Position: Sitting Pulse: 79 SpO2: 97% Weight: 69.9 kg (154 lb) Height: 177.8 cm (70 ) Body mass index is 22.1 kg/m??. PHYSICAL EXAM: General Appearance: well developed well nourished Neck: thyroid not enlarged supple Respiratory: no respiratory distress normal breath sounds no rales Cardiovascular: no jugular venous distention regular rhythm apical impulse normal S1 normal, S2 normal no S3, no S4 no murmur no rub, no thrill lower extremity edema: none Skin: warm, dry RESULTS: Procedures Results for orders placed during the hospital [...] Elevated right and left heart filling pressures. St. Ramana ICD: DDDR mode, >99% A-V paced, no events, 3.4 years battery life Labs: No results found for: CHOL , TRIG , HDL , LDL , AST , ALT No results found for: HGBA1C No results found for: CREATININE No results found for: EGFRIFNONA ASSESSMENT: Problem List Items Addressed This Visit Cardiac and Vasculature Hyperlipidemia LDL goal <70 Essential hypertension SSS (sick sinus syndrome) Overview 03/16/20 Upgrade of his dual-chamber pacemaker to SJ dual-chamber ICD Ischemic cardiomyopathy - Primary Overview 03/16/20 Upgrade of his dual-chamber pacemaker to [facility] dual-chamber ICD 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 Moderate lesion distal to the MONROY to the LAD 50-70% by Dr. Silva @ [facility] 12/09/14 LHC: 1/3 grafts occluded, BMS to SVG to OM2/OM3. EF 35-40% Failed attempt at PCI to OM1 distribution due to tortuosity and heavy calcification. BMS to proximal LAD. 04/29/07 CABG: MONORY to LAD, SVG to D1 & OM2, SVG to RCA. Chronic systolic congestive heart failure Overview 06/29/21 Echo: LVEF 36-40%, grade II diastolic dysfunction, moderate MR, moderately reduced RVSF PLAN: 1. CAD: Continue aspirin, Plavix, rosuvastatin, and carvedilol Continue exercise Asymptomatic without angina 2. Chronic systolic heart failure: Echo at [facility]SH 10/2023: EF 30-35%, moderate MR, moderate TR, RVSP 52 mmHg Agree with current medical therapy, including Lisinopril, Coreg,Spironolactone Intolerant to Lasix and Jardiance due to hypotension, however will use PRN if he decompensates Euvolemic with NYHA I symptoms currently [place]ana ICD in place- today's in office interrogation shows 99% A-V Pacing 3. Presence of [place] Ram[place] ICD: Continue in office interrogation every 6-9 months Remote interrogations every 3 months Defer upgrade to BiV ICD after discussion with patient and his son He is on Amiodarone 200mg daily, unclear indication, although suspected ventricular arrhythmias. Will continue for now. He will need labs every 6 months including LFTs and TSH, also yearly CXR and eye exam 4. Hypertension: Goal blood pressure less than 130/80 BPs at target by home log 5. Hyperlipidemia: Goal LDL less than 70, recent LDL 83 on labs 09/18/23 Continue high intensity statin therapy with Crestor 40mg weekly, intolerant to daily or every otherday use Advance Care Planning ACP discussion was held with the patient during this visit. Patient has an advance directive in EMRwhich is still valid. Follow-up Return in about 6 months (around 08/07/2024) for with ANTON *CASSIDY . Electronically signed by Sade Penaloza PA-C, 02/06/24, 12:12 PM EDT. documented in this encounter Plan of Treatment Upcoming Encounters Date Type Department Care Team (Late st Contact Info) Description 11/12/2024 2:15 PM EDT Office Visit [facility] [address] [facility] [address] [place] [address] Mansoor Silva MD [address] [facility] [address] [place] [address] 01/21/2025 2:30 PM EDT Office Visit [facility] NE[facility] [address] [place] [address] Monica Quintero, DNP, MEN'S BASKETBALL COACH [address] [place] [address] Scheduled Orders Name Type Priority Associated Diagnoses Orde r Schedule Cardiology Scan Cardiac Services Ord ered: 02/06/2024 documented as of this encounter Visit Diagnoses Diagnosis Ischemic cardiomyopathy- Primary Other specified forms of chronic ischemic heart disease Coronary artery disease of bypass graft of [place] heart with stable angina pectoris Chronic systolic congestive heart failure Hyperlipidemia LDL goal <70 Other and unspecified hyperlipidemia Essential hypertension Unspecified essential hypertension SSS (sick sinus syndrome) Sinoatrial node dysfunction Cardiac defibrillator in situ documented in this encounter Care Teams Manager Retail Sales Relationship Specialty Start Date End Date Allyson Avery, YOKO [address] [address] [place] [address] PCP - General Internal Medicine 07/22/23 documented as of this encounter
--- OUTSIDE RECORDS SUMMARY | 2024-07-21 17:15 | XMS_ITS | Encounter Summary ---
[facility] Address [address] [place] [address] Care Team Providers Care Foreign Student Adviser Name Role Phone Allyson Avery YOKO Primary Care Provider + [phone] Reason for Visit * Reason Comments Med Refill Encounter Details Date Type Department Care Team (Late Contact Info) Description 08/14/2022 Refill [facility] [address] [facility] [address] [place] [address] Mansoor Silva MD [address] [place] [address] Med Refill Social History Tobacco Use Types [...] of Binge Drinking Not on file 03/02 Sex and Gender Information Value Date Recorded Sex Assigned at Not on file Legal Sex Male 1:25 PM EDT Gender Identity Not on file Sexual Orientation Not on file documented as of this encounter Plan of Treatment Upcoming Encounters Date Type Department Care Team (Late Contact Info) Description 11/12/2024 2:15 PM EDT Office Visit [facility] [address] [facility] [address] [place] [phone] Mansoor Silva MD [address] [facility] [address] [place] [address] 01/21/2025 2:30 PM EDT Office Visit [facility] NE[facility] [address] [facility] [address] [place] [address] Monica Quintero, SAMUEL, SENIOR FIREWALL ENGINEER [address] [facility] [address] [place] [address] documented as of this encounter Visit Diagnoses Not on filedocumented in this encounter Care Teams Foreign Student Adviser Relationship Specialty Start Date End Date Allyson Avery APRN PCP - General Internal Medicine 03/15/21 07/21/23 documented as of this encounter
--- OUTSIDE RECORDS SUMMARY | 2024-07-21 17:15 | XMS_ITS | Encounter Summary ---
[facility] Address [address] [place] [address] Care Team Providers Care Strainer Mill Operator Name Role Phone Allyson Avery YOKO Primary Care Provider + [phone] Reason for Visit * Reason Onset Date Comments Med Refill 05/23/2022 Encounter Details Date Type Department Care Team (Late Contact Info) Description 05/23/2022 Refill [facility] CARDIOLOG[facility] [address] [phone] Mansoor Silva MD [address] [place] [address] Med Refill Social History Tobacco Use Types [...] Description 11/12/2024 2:15 PM EDT Office Visit [facility]IOLOG[facility] [address] [facility] [address] [place] [address] Mansoor Silva MD [address] [facility] [address] [place] [address] 01/21/2025 2:30 PM EDT Office Visit [facility] NEUROLOGY [address] [facility] [address] [place] [address] Monica Quintero, DNP, HORSE SHOW JUDGE [address] [facility] [address] [place] [address] documented as of this encounter Visit Diagnoses Not on filedocumented in this encounter Care Teams Strainer Mill Operator Relationship Specialty Start Date End Date Allyson Avery APRN PCP - General Internal Medicine 03/15/21 07/21/23 documented as of this encounter
--- OUTSIDE RECORDS SUMMARY | 2024-07-21 17:15 | XMS_ITS | Encounter Summary ---
[facility] [address] [place] [address] Care Team Providers Care Exterior Interior Specialist Name Role Phone Allyson Avery YOKO Primary Care Provider + [phone] Reason for Visit * Reason Comments Med Refill Encounter Details Date Type Department Care Team (Late Contact Info) Description 07/18/2022 Refill [facility]IOLOG[facility] [address] [facility] [address] [place] [address] Mansoor Silva MD [address] [place] [address] Med Refill Social History Tobacco Use Types [...] EDT Office Visit [facility] [address] [facility] [address] [place] [phone] Mansoor Silva MD [address] [facility] [address] [place] [address] 01/21/2025 2:30 PM EDT Office Visit [facility] NEUROLOG[facility] [address] [facility] [address] [place] [address] Monica Quintero, SAMUEL, REAL ESTATE CONSULTANT [address] [facility] [address] [place] [address] documented as of this encounter Visit Diagnoses Not on filedocumented in this encounter Care Teams Exterior Interior Specialist Relationship Specialty Start Date End Date Allyson Avery APRN PCP - General Internal Medicine 03/15/21 07/21/23 documented as of this encounter
--- OUTSIDE RECORDS SUMMARY | 2024-07-21 17:15 | XMS_ITS | Encounter Summary ---
[facility] [address] [place] [address] Care Team Providers Care Rouge Sifter And Miller Name Role Phone Allyson Avery APRN Primary Care Provider + [phone] Encounter Details Date Type Department Care Team (Late st Contact Info) Description 09/11/2022 Telephone [facility] CARDIOLOGY [address] [address] Mansoor Silva MD [address] [place] [address] Social History Tobacco Use Types Packs/Day Years [...] Telephone Encounter - Addie Lundberg RN - 09/12/2022 10:54 AM EST Spoke with pt son regarding RDS recommendations. No further questions at this time. * Telephone Encounter - Addie Lundberg RN - 09/11/2022 3:11 PM EST Spoke with son regarding symptoms. Son states pt denies SOB, dizziness, syncopal episode, palpitations, or chest pain, but pt has grabbed his head and screamed a few times within the last 2 weeks. Pt said he thinks ICD is shocking him. Advised I would forward to RDS to see if any further changes necessary * Telephone Encounter - Addie Lundberg RN - 09/11/2022 3:10 PM EST ----- Message from Mansoor Silva MD sent at 09/11/2022 2:12 PM EST ----- Reviewed his remote ICD interrogation from August, one episode of ventricular tachycardia requiring ATP termination, please call the patient and see if he is symptomatic with palpitations. If he isplease start amiodarone 200 mg daily and decrease coreg to 25 mg bid documented in this encounter Plan of Treatment Upcoming Encounters Date Type Department Care Team (Late st Contact Info) Description 11/12/2024 2:15 PM EDT Office Visit [facility] C[facility] [address] [facility] [address] [place] [phone] Mansoor Silva MD [address] [facility] [address] [place] [address] 01/21/2025 2:30 PM EDT Office Visit [facility] NEUROLOG[facility] [address] [facility] [address] [place] [address] Monica Quintero, DNP, CHILI POWDER MIXER [address] [facility] [address] [place] [address] documented as of this encounter Visit Diagnoses Not on filedocumented in this encounter Care Teams Rouge Sifter And Miller Relationship Specialty Start Date End Date Allyson Avery APRN PCP - General Internal Medicine 03/15/21 07/21/23 documented as of this encounter
--- OUTSIDE RECORDS SUMMARY | 2024-07-21 17:15 | XMS_ITS | Encounter Summary ---
[facility] [address] [place] [address] Care Team Providers Care Raspberry Checker Name Role Phone Allyson Avery YOKO Primary Care Provider + [phone] Reason for Visit * Reason Onset Date Comments Med Refill 06/12/2021 Encounter Details Date Type Department Care Team (Late Contact Info) Description 06/12/[address] [facility] CARDIOLOGY [address] [phone] Mansoor Silva MD [address] [place] [address] Med Refill Social History Tobacco Use Types [...] Description 11/12/2024 2:15 PM EDT Office Visit [facility] C[facility] [address] [facility] [address] [place] [address] Mansoor Silva MD [address] [facility] [address] [place] [address] 01/21/2025 2:30 PM EDT Office Visit [facility] NEUROLOGY [address] [facility] [address] [place] [address] Monica Quintero, DNP, OFFICE HELPER [address] [facility] [address] [place] [address] documented as of this encounter Visit Diagnoses Not on filedocumented in this encounter Care Teams Raspberry Checker Relationship Specialty Start Date End Date Allyson Avery APRN PCP - General Internal Medicine 03/15/21 07/21/23 documented as of this encounter
--- OUTSIDE RECORDS SUMMARY | 2024-07-21 17:15 | XMS_ITS | Encounter Summary ---
[facility] [address] [place] [address] Care Team Providers Care Deputy Register Of Deeds Name Role Phone Allyson Avery APRN Primary Care Provider + [phone] Reason for Referral * Diagnostic Imaging (Routine) - Closed Specialty Diagnoses / Procedures Referred By Venancio t Referred To Contact Diagnoses Coronary artery disease of bypass graft of [place] heart with stable angina pectoris Hyperlipidemia LDL goal <70 Procedures Stress Test With Pet Myocardial Perfusion (Multi Study) Mansoor Silva MD [address] [place] [address] Phone: tel: fax: [address] [address] Phone: tel: Referral ID Status Reason Start Date Expiration Date Visits Re quested Visits Authorized [id number] Closed 06/19/2021 06/19/2022 1 1 Reason for Visit * Diagnostic Imaging (Routine) - Closed Specialty Diagnoses / Procedures Referred By Contcedric t Referred To Contact Diagnoses Coronary artery disease of bypass graft of [place] heart with stable angina pectoris Hyperlipidemia LDL goal <70 Procedures Stress Test With Pet Myocardial Perfusion (Multi Study) Mansoor Silva MD [address] [place] [address] Phone: tel: fax: [facility] [address] [place] [address] Phone: tel: Referral ID Status Reason Start Date Expiration Date Visits Re quested Visits Authorized [id number] Closed 06/19/2021 06/19/2022 1 1 Encounter Details Date Type Department Care Team (Late st Contact Info) Description 06/26/2021 12:17 PM EDT - 06/26/2021 11:59 PM EDT Hospital Encounter [facility] [address] [facility] 3rd floor [place] [id number] Mansoor Silva MD [address] [facility] [address] [place] [address] Coronary artery disease of bypass graft of [place] heart with stable angina pectoris; Hyperlipidemia LDL goal <70 Discharge Disposition: Home or Self Care Social History Tobacco Use Types Packs/Day Years [...] Sign Reading Time Taken Comments Blood Pressure 155/97 06/26/2021 12:47 PM EDT Pulse 70 06/26/2021 12:47 PM EDT Temperature - - Respiratory Rate - - Oxygen Saturation 97% 06/26/2021 12:47 PM EDT Inhaled Oxygen Concentration - - Weight 73.9 kg (163 lb) 06/26/2021 12:47 PM EDT Height 175.3 cm (5' 9 ) 06/26/2021 12:47 PM EDT Body Mass Index 24.07 06/26/2021 12:47 PM EDT documented in this encounter Medications at Time of Discharge allopurinol (ZYLOPRIM) 100 MG tablet Take 1 tablet by mouth Daily. aspirin 81 MG EC tablet Take 1 tablet by mouth Daily. Docusate Calcium (STOOL SOFTENER PO) Take 300 mg by mouth Daily. Taking 1 tablet four times daily. levothyroxine (SYNTHROID, LEVOTHROID) 75 MCG tablet Take 1 tablet by mouth Daily. Methylsulfonylmet hane (MSM PO) Take 1,000 mg by mouth 2 (two) times a day. multivitamin (THERAGRAN) tablet tablet Take 1 tablet by mouth 2 (two) times a day. carvedilol (COREG) 25 MG tablet Take 2 tablets by mouth 2 (Two) Times a Day. 360 tablet 3 06/12/2021 07/19/2022 Cascara Godnunm-Dcuvv-Pkz Lax (BIOHM COLON CLEANSER PO) Take 1 tablet by mouth Daily. 01/08/2022 clopidogrel (PLAVIX) 75 MG tablet Take 75 mg by mouth Daily. 08/08/2021 Coenzyme Q10 (COQ10 PO) Take 400 mg by mouth Daily. 12/27/2022 colesevelam (WELCHOL) 625 MG tablet Take 1,250 mg by mouth 2 (Two) Times a Day With Meals. 2 tablets in the morning and 2 tablets in the evening 10/12/2021 L-ARGININE PO Take 1 tablet by mouth Daily. 01/22/2024 lisinopril (PRINIVIL,ZESTRIL ) 20 MG tablet Take 1 tablet by mouth Daily. Taking 10 MG daily. 01/22/2024 [place]-3 Fatty Acids (FISH OIL PO) Take 2,400 mg by mouth 2 (two) times a day. 12/27/2022 ranolazine (RANEXA) 500 MG 12 hr tablet Take 1 tablet by mouth 2 (Two) Times a Day. 180 tablet 3 03/24/2021 05/23/2022 rosuvastatin (CRESTOR) 40 MG tablet Take 40 mg by mouth Daily. 07/17/2021 Unable to find 1 each 1 (One) Time. Med Name: cognium I tablet once daily 07/22/2023 documented as of this encounter Progress Notes * Mansoor Silva MD - 06/26/2021 1:00 PM EDT Please inform the patient of their test results. No evidence of new blockage but ejection fraction is moderately reduced, please order an echo if he has not had one in the past 6 months. Thank you. documented in this encounter Plan of Treatment Upcoming Encounters Date Type Department Care Team (Late st Contact Info) Description 11/12/2024 2:15 PM EDT Office Visit [facility] [address] [facility] [address] [place] [address] Mansoor Silva MD [address] [facility] [address] [place] [address] 01/21/2025 2:30 PM EDT Office Visit [facility] NEUR[facility]Y [address] [facility] [address] [place] [address] Monica Quintero, DNP, OFFICE SYSTEM ANALYST [address] [place] [address] documented as of this encounter Procedures Procedure Name Priority Date/Time Associated Diagnosis Comments STRESS TEST WITH PET MYOCARDIAL PERFUSION (MULTI STUDY) Routine 06/26/2021 12:46 PM EDT Coronary artery disease of bypass graft of [place] heart with stable angina pectoris Hyperlipidemia LDL goal <70 documented in this encounter Results * STRESS TEST WITH PET MYOCARDIAL PERFUSION (MULTI STUDY) (06/26/2021 12:46 PM EDT) Target HR (85%) 118 bpm Max. Pred. HR (100%) 139 bpm BH CV STRESS PROTOCOL 1 Pharmacologic Stage 1 1 Duration Min Stage 1 1 Stress Dose Regadenoson Stage 1 0.4 Stress Comments Stage 1 10 sec bolus injection Stage 2 2 Duration Min Stage 2 1 Duration Sec Stage 2 0 Stage 3 3 Duration Min Stage 3 1 Stage 4 4 Duration Min Stage 4 1 Baseline HR 70 bpm Baseline BP 155/97 mmHg O2 sat rest 97 % Exercise duration (min) 4 min Exercise duration (sec) 0 sec Estimated workload 1.0 METS HR Stage 1 70 BP Stage 1 142/70 O2 Stage 1 97 HR Stage 2 70 O2 Stage 2 97 HR Stage 3 70 BP Stage 3 120/69 O2 Stage 3 100 HR Stage 4 70 O2 Stage 4 100 Peak HR 73 bpm Percent Max Pred HR 52.52 % Percent Target HR 62 % Peak BP 142/70 mmHg O2 sat peak 100 % Recovery HR 70 bpm Recovery BP 128/70 mmHg Recovery O2 100 % BH CV REST NUCLEAR ISOTOPE DOSE 30.0 mCi BH CV STRESS NUCLEAR ISOTOPE DOSE 30.0 mCi Anatomical Region Laterality Modality Nuclear Medicine Narrative 06/27/2021 2:13 PM EDT ?? 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 ?? Myocardial perfusion imaging indicates a medium-sized infarct located in the inferior wall with no significant ischemia noted. ?? The patient denied chest discomfort or other symptoms during pharmacological stress. ?? REST EF = 35% STRESS EF = 36%. With severe hypokinesis of the inferior wall. ?? Dense calcification noted of all 3 coronary territories. ?? Left ventricular ejection fraction is moderately reduced. . ?? Impressions are consistent with an intermediate risk study. Stress Findings No ECG evidence of myocardial ischemia. 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 Impressions are consistent with an intermediate risk study. REST EF = 35% STRESS EF = 36%. Rest Perfusion Defect 1 There is a moderate to large sized defect with severe reduction in uptake present in the basal inferoseptal and basal inferior wall. Stress Perfusion Defect 1 There is a moderate to large sized defect of severe severity present in the basal inferoseptal and basal inferior wall. Nuclear Study Description A PET protocol myocardial perfusion imaging study was performed. A 20 G peripheral IV was started in the left antecubital fossa. While at rest, the patient was injected intravenously with 30.0 mCi of rubidium (Rb-82) at 12:50 EDT. Rest imaging was performed approximately 1 minutes after the resting injection. Regadenoson (0.4 mg / 5 mL) was given intravenously over approximately 10 seconds followed by 5 mL flush of saline according to protocol. While at peak stress, the patient was injected intravenously with 30.0 mCi of rubidium at 13:02 EDT. Stress imaging was performed approximately 1 minutes after the injection. The total amount of radiation received in the study is about 2.45 mSv. Rest ECG Baseline ECG of normal sinus rhythm noted at rest. Paced at times. PVCs and 1st degree atrio-ventricular block noted. Stress ECG Stress ECG of normal sinus rhythm noted. Paced at times. 1st degree atrioventricular block noted during stress. There was no ST segment deviation noted during stress. Arrhythmias during stress: occasional PVCs. Stress ECG was interpretable. Ventricle Size / Description Left ventricular ejection fraction is moderately reduced. . Stress Description A pharmacological stress test was performed using regadenoson without low-level exercise. The patient reached the end of the protocol. The patient reported no symptoms during the stress test. Recovery ECG During recovery, the patient complained of no significant symptoms following stress. Sinus rhythm was noted during recovery. Recovery rhythmn comment: First degree AV block Arrhythmias during recovery: occasional PVC's. Test Go Go Dancer ECG Bow us Mansoor Silva MD CV STRESS ORDERABLES Final Re sult documented in this encounter Visit Diagnoses Diagnosis Coronary artery disease of bypass graft of [place] heart with stable angina pectoris Hyperlipidemia LDL goal <70 Other and unspecified hyperlipidemia documented in this encounter Administered Medications Inactive Administered Medications - up to 3 most recent administrations Medication Order MAR Action Action Date Dose Rate Site regadenoson (LEXISCAN) injection 0.4 mg 0.4 mg, Intravenous, Once, On Sat06/26/21 at 1236, For 1 dose, Administer over approximately 10 seconds. Given 06/26/2021 1:00 PM EDT 0.4 mg rubidium chloride (CARDIOGEN) injection 1 dose 1 dose, Intravenous, Once in Imaging, On Sat06/26/21 at 1402, For 1 dose, Millicuries: 30 Given 06/26/2021 1:02 PM EDT 1 dose rubidium chloride (CARDIOGEN) injection 1 dose 1 dose, Intravenous, Once in Imaging, On Sat06/26/21 at 1403, For 1 dose, Millicuries: 30 Given 06/26/2021 12:50 PM EDT 1 dose documented in this encounter Care Teams Deputy Register Of Deeds Relationship Specialty Start Date End Date Allyson Avery APRN PCP - General Internal Medicine 03/15/21 07/21/23 documented as of this encounter
--- OUTSIDE RECORDS SUMMARY | 2024-07-21 17:15 | XMS_ITS | Encounter Summary ---
[facility] Address [address] [place] [address] Care Team Providers Care Power Transmission Engineer Name Role Phone Allyson Avery YOKO Primary Care Provider + [phone] Reason for Visit * Reason Comments Med Refill Encounter Details Date Type Department Care Team (Late st Contact Info) Description 04/14/2023 Refill [facility] [address] [facility] [address] [place] [address] Monica Quintero, DNP, CLINICAL RESEARCH SPEC [address] [facility] [address] [place] [address] Mild cognitive impairment Social History [...] encounter Miscellaneous Notes * Telephone Encounter - Rita Cruz MA - 04/15/2023 8:29 AM EDT duplicate Rx Refill Note Requested Prescriptions Pending Prescriptions Disp Refills memantine (NAMENDA) 5 MG tablet [Pharmacy Med Name: MEMANTINE HCL 5 MG TABLET] 30 tablet 2 Sig: TAKE 1 TABLET BY MOUTH DAILY Last filled: 04/12/2023 w/2 Last office visit with prescribing clinician: 01/18/2023 Next office visit with prescribing clinician: 07/22/2023 Rita Cruz MA 04/15/23, 08:29 EDT documented in this encounter Plan of Treatment Upcoming Encounters Date Type Department Care Team (Late st Contact Info) Description 11/12/2024 2:15 PM EDT Office Visit [facility] [address] [facility] [address] [place] [id number] Mansoor Silva MD [address] [facility] [address] [place] [address] 01/21/2025 2:30 PM EDT Office Visit [facility] [address] [facility] [address] [place] [address] Monica Quintero, SAMUEL, CLINICAL RESEARCH SPEC [address] [facility] [address] [place] [address] documented as of this encounter Visit Diagnoses Diagnosis Mild cognitive impairment Mild cognitive impairment, so stated documented in this encounter Care Teams Power Transmission Engineer Relationship Specialty Start Date End Date Allyson Avery APRN PCP - General Internal Medicine 03/15/21 07/21/23 documented as of this encounter
--- OUTSIDE RECORDS SUMMARY | 2024-07-21 17:15 | XMS_ITS | Encounter Summary ---
[facility] Address [address] [place] [address] Care Team Providers Care Director Translational Name Role Phone Allyson Avery APRN Primary Care Provider + [phone] Reason for Referral * Diagnostic Imaging (Routine) - Closed Specialty Diagnoses / Procedures Referred By Contac t Referred To Contact Diagnoses Coronary artery disease of bypass graft of gambell heart with stable angina pectoris HERNANDEZ (dyspnea on exertion) Procedures Adult Transthoracic Echo Complete W/ Cont if Necessary Per Protocol Mansoor Silva MD [address] [address] Phone: tel: fax: [address] [address] Phone: tel: Referral ID Status Reason Start Date Expiration Date Visits Re quested Visits Authorized [id number] Closed 06/27/2021 06/27/2022 1 1 Encounter Details Date Type Department Care Team (Late st Contact Info) Description 06/27/2021 Telephone [facility] 1720 [facility] [address] [place] [address] Mansoor Silva MD 1720 [place] [address] Social History Tobacco Use Types Packs/Day Years [...] Telephone Encounter - Addie Lundberg RN - 06/27/2021 4:44 PM EDT Spoke pt son regarding stress. Verbalized understanding. * Telephone Encounter - Addie Lundberg RN - 06/27/2021 4:42 PM EDT ----- Message from Mansoor Silva MD sent at 06/27/2021 4:23 PM EDT ----- Please inform the patient of their test results. No evidence of new blockage but ejection fraction is moderately reduced, please order an echo if he has not had one in the past 6 months. Thank you. documented in this encounter Plan of Treatment Upcoming Encounters Date Type Department Care Team (Late st Contact Info) Description 11/12/2024 2:15 PM EDT Office Visit [facility] 1720 [facility] 400 [place] [phone] Mansoor Silva MD 1720 [facility] 400 [place] [address] 01/21/2025 2:30 PM EDT Office Visit [facility] NE[facility] 610 [facility] 201 [place] [address] Monica Quintero, DNP, STAFF PSYCHIATRIST [address] [place] [address] [place] [id number] documented as of this encounter Results * ECHO COMPLETE W/ DOPPLER AND COLOR FLOW (06/29/2021 1:55 PM EDT) BSA 1.9 m^2 [facility] IVSd 0.83 cm [facility] LVIDd 5.0 cm [facility] LVIDs 3.9 cm [facility] LVPWd 0.98 cm [facility] IVS/LVPW 0.85 [facility] FS 22.3 % [facility] EDV(Teich) 117.6 ml [facility] ESV(Teich) 65.0 ml [facility] EF(Teich) 44.7 % [facility] EDV(cubed) 124.1 ml [facility] ESV(cubed) 58.3 ml [facility] EF(cubed) 53.0 % [facility] LV mass(C)d 158.6 grams [facility] LV mass(C)dI 83.8 grams/m^2 [facility] SV(Teich) 52.6 ml [facility] SI(Teich) 27.8 ml/m^2 [facility] SV(cubed) 65.9 ml [facility] SI(cubed) 34.8 ml/m^2 [facility] Ao root diam 3.1 cm [facility] Ao root area 7.7 cm^2 [facility] LA dimension (2D) 4.9 [facility] LA/Ao 1.6 [facility] LVOT diam 2.0 cm [facility] LVOT area 3.1 cm^2 [facility] LVOT area(traced) 3.1 cm^2 [facility] LAd major 6.2 cm [facility] LVLd ap4 7.6 cm [facility] EDV(MOD-sp4) 132.0 [facility] LVLs ap4 7.1 cm [facility] ESV(MOD-sp4) 60.6 ml [facility] EF(MOD-sp4) 54.1 % [facility] LVLd ap2 7.7 cm [facility] EDV(MOD-sp2) 146.0 ml [facility] LVLs ap2 7.0 cm [facility] ESV(MOD-sp2) 81.0 ml [facility] EF(MOD-sp2) 44.5 % [facility] LA ESV (BP) 89.6 ml [facility] EF(MOD-bp) 38 % [facility] SV(MOD-sp4) 71.4 ml [facility] SVi(MOD-SP4) 37.7 ml/m^2 [facility] SV(MOD-sp2) 65.0 ml [facility] SVi(MOD-SP2) 34.3 ml/m^2 [facility] Ao root area (BSA corrected) 1.7 [facility] LV Cobb Vol (BSA corrected) 69.7 ml/m^2 [facility] LV Sys Vol (BSA corrected) 32.0 ml/m^2 [facility] TAPSE (>1.6) 1.2 cm [facility] LA ESV Index (BP) 47.3 ml/m^2 [facility] MV E max armando 91.7 cm/sec [facility] MV A max armando 79.7 cm/sec [facility] MV E/A 1.2 [facility] MV V2 max 80.5 cm/sec [facility] MV max PG 2.6 mmHg [facility] MV V2 mean 66.6 cm/sec [facility] MV mean PG 1.8 mmHg [facility] MV V2 VTI 22.9 cm [facility] MVA(VTI) 2.1 cm^2 [facility] MV P1/2t max armando 88.2 cm/sec [facility] MV P1/2t 102.5 msec [facility] MVA(P1/2t) 2.1 cm^2 [facility] MV dec slope 252.2 cm/sec^2 [facility] MV dec time 0.3 sec [facility] Ao pk armando 163.7 cm/sec [facility] Ao max PG 11.0 mmHg [facility] Ao max PG (full) 8.6 mmHg [facility] Ao V2 mean 110.2 cm/sec [facility] Ao mean PG 5.7 mmHg [facility] Ao mean PG (full) 4.3 mmHg [facility] Ao V2 VTI 30.6 cm [facility] KATHARINE(I,A) 1.5 cm^2 [facility] KATHARINE(I,D) 1.5 cm^2 [facility] KATHARINE(V,A) 1.5 cm^2 [facility] KATHARINE(V,D) 1.5 cm^2 [facility] LV V1 max PG 2.4 mmHg [facility] LV V1 mean PG 1.4 mmHg [facility] LV V1 max 78.0 cm/sec [facility] LV V1 mean 55.3 cm/sec [facility] LV V1 VTI 15.2 cm [facility] SV(Ao) 235.1 ml [facility] SI(Ao) 124.1 ml/m^2 [facility] SV(LVOT) 47.4 ml [facility] SI(LVOT) 25.1 ml/m^2 [facility] PA acc time 0.15 sec [facility] PI end-d armando 185.8 cm/sec [facility] TR max armando 260.8 cm/sec [facility] TR max PG 27.0 mmHg [facility] RVSP(TR) 35 mmHg [facility] RAP systole 8 mmHg [facility] PA pr(Accel) 10.9 mmHg [facility] MVA P1/2T LCG 2.5 cm^2 [facility] RV Base 3.7 cm [facility] RV Mid 2.3 cm [facility] RV S' 7.3 cm/sec [facility] Lat E/e' 11.4 [facility] Med E/e' 22.8 [facility] Lat Peak E' Armando 8.1 cm/sec [facility] Med Peak E' Armando 4.0 cm/sec [facility] CV ECHO MORE - BZI_BMI 24.1 kilograms/ m^2 [facility] CV ECHO MORE - BSA([place]) 1.9 m^2 [facility] CV ECHO MORE - BZI_METRIC_WEI GHT 73.9 kg [facility] CV ECHO MORE - BZI_METRIC_HEI GHT 175.3 cm [facility] Avg E/e' ratio 15.16 [facility] Target HR (85%) 118 bpm [facility] Max. Pred. HR (100%) 139 bpm [facility] CV VAS BP RIGHT ARM 144/93 mmHg [facility] Anatomical Region Laterality Modality Ultrasound 06/29/2021 1:11 PM EDT Narrative 06/30/2021 10:22 AM EDT ?? Calculated biplane EF 38%. left ventricular [...] Elevated right and left heart filling pressures. Left Ventricle Calculated left ventricular EF = 38% Estimated left ventricular EF was in agreement with the calculated left ventricular EF. Left ventricular ejection fraction appears to be 36 - 40%. Left ventricular systolic function is moderately decreased. Global longitudinal LV strain (GLS) = -12%. Normal left ventricular cavity size and wall thickness noted. Left ventricular diastolic function is consistent with (grade II w/high LAP) pseudonormalization. Elevated left atrial pressure. Inferior and Septal wall appear severely hypokinetic. Right Ventricle Normal right ventricular cavity size noted. Moderately reduced right ventricular systolic function noted. Left Atrium The left atrial cavity is moderately dilated. Left atrial volume is moderately increased. Right Atrium Normal right atrial cavity size noted. The inferior vena cava is dilated. IVC inspiratory collapse is absent. Mitral Valve Mitral annular calcification is present. There is calcification of the mitral valve anterior leaflet(s). Moderate mitral valve regurgitation is present. No significant mitral valve stenosis is present. Tricuspid Valve The tricuspid valve is structurally normal with no significant stenosis present. Mild tricuspid valve regurgitation is present. Estimated right ventricular systolic pressure from tricuspid regurgitation is mildly elevated (35-45 mmHg). Calculated right ventricular systolic pressure from tricuspid regurgitation is 35 mmHg. Aortic Valve The aortic valve is abnormal in structure. The aortic valve exhibits sclerosis. Trace aortic valve regurgitation is present. No hemodynamically significant aortic valve stenosis is present. Pulmonic Valve The pulmonic valve is structurally normal with no significant stenosis present. There is trace pulmonic valve regurgitation present. Pericardium The pericardium is normal. There is no evidence of pericardial effusion. . Additional Study Details A complete transthoracic echocardiogram with complete Doppler and color flow was performed. The study is technically adequate for diagnosis. Greater Vessels The inferior vena cava is dilated. Normal IVC inspiratory collapse of greater than 50% noted. us Mansoor Silva MD CV ECHO ORDERABLES Final Resu lt documented in this encounter Visit Diagnoses Diagnosis Coronary artery disease of bypass graft of gambell heart with stable angina pectoris- Primary Essential hypertension Unspecified essential hypertension HERNANDEZ (dyspnea on exertion) Other dyspnea and respiratory abnormality Coronary artery disease of bypass graft of gambell heart with stable angina pectoris HERNANDEZ (dyspnea on exertion) Other dyspnea and respiratory abnormality documented in this encounter Care Teams Director Translational Relationship Specialty Start Date End Date Allyson Avery APRN PCP - General Internal Medicine 03/15/21 07/21/23 documented as of this encounter
--- OUTSIDE RECORDS SUMMARY | 2024-07-21 17:15 | XMS_ITS | Encounter Summary ---
[facility] Address [address] [place] [address] Care Team Providers Care Golf Starter And Ranger Name Role Phone Allyson Avery APRN Primary Care Provider + [phone] Encounter Details Date Type Department Care Team (Late st Contact Info) Description 06/12/2021 Telephone [facility] [address] [address] Mansoor Silva MD 1720 [facility] 400 [place] [address] Social History Tobacco Use Types Packs/Day Years [...] Telephone Encounter - Addie Lundberg RN - 06/12/2021 4:16 PM EDT Son confirmed pt is taking carvedilol 50 mg BID. When we saw him as a consult, carvedilol 25 mg BIDwas put on his med list. He has been taking this dose consistently for a while now and they would like the correct dose called in. Confirmed with pharmacy they have been filling carvedilol 50 mg BID for him. documented in this encounter Plan of Treatment Upcoming Encounters Date Type Department Care Team (Late st Contact Info) Description 11/12/2024 2:15 PM EDT Office Visit [facility] 1720 [facility] 400 [place] [phone] Mansoor Silva MD 1720 [facility] 400 [place] [address] 01/21/2025 2:30 PM EDT Office Visit [facility] NEUR[facility] [address] [facility] [address] [place] [id number] Monica Quintero, DNP, OFFICE NURSE PRACTITIONER [address] [facility] 202 [place] [address] documented as of this encounter Visit Diagnoses Not on filedocumented in this encounter Care Teams Golf Starter And Ranger Relationship Specialty Start Date End Date Allyson Avery APRN PCP - General Internal Medicine 03/15/21 07/21/23 documented as of this encounter
--- OUTSIDE RECORDS SUMMARY | 2024-07-21 17:15 | XMS_ITS | Encounter Summary ---
[facility] Address [address] [place] [address] Care Team Providers Care Assistant Education Director Name Role Phone AveryAllyson la YOKO Primary Care Provider + [phone] Reason for Visit * Reason Comments Pacemaker Check PMT Encounter Details Date Type Department Care Team (Latest Contact Info) Description 11/24/2021 11:15 AM EDT Clinical Support No Requirements [facility] 1720 [facility] [address] [place] [address] Pacemaker-mediated tachycardia (Primary Dx) Social History Tobacco Use Types [...] on file documented as of this encounter Progress Notes * Alice Wilcox RN - 11/24/2021 11:15 AM EDT PMT found on remote readings. Adjustments made today. documented in this encounter Plan of Treatment Upcoming Encounters Date Type Department Care Team (Late st Contact Info) Description 11/12/2024 2:15 PM EDT Office Visit [facility] 1720 [facility] [address] [place] [phone] Mansoor Silva MD 1720 [facility] 400 [place] [address] 01/21/2025 2:30 PM EDT Office Visit [facility] [address] [facility] 201 [place] [address] Monica Quintero, DNP, PROCUREMENT COORDINATOR [address] [facility] 202 [place] [address] documented as of this encounter Visit Diagnoses Diagnosis Pacemaker-mediated tachycardia- Primary Other specified cardiac dysrhythmias documented in this encounter Care Teams Assistant Education Director Relationship Specialty Start Date End Date Allyson Avery APRN PCP - General Internal Medicine 03/15/21 07/21/23 documented as of this encounter
--- OUTSIDE RECORDS SUMMARY | 2024-07-21 17:15 | XMS_ITS | Encounter Summary ---
[facility] Address [address] [place] [address] Care Team Providers Care Marketing Reporting Analyst Name Role Phone Allyson Avery APRN Primary Care Provider + [phone] Reason for Referral * Diagnostic Imaging (Routine) - Closed Specialty Diagnoses / Procedures Referred By Contac t Referred To Contact Diagnoses Coronary artery disease of bypass graft of [place] heart with stable angina pectoris Hyperlipidemia LDL goal <70 Procedures Stress Test With Pet Myocardial Perfusion (Multi Study) Mansoor Silva MD [address] [address] Phone: tel: fax: [address] [address] Phone: tel: Referral ID Status Reason Start Date Expiration Date Visits Re quested Visits Authorized [id number] Closed 06/19/2021 06/19/2022 1 1 Encounter Details Date Type Department Care Team (Late st Contact Info) Description 06/19/2021 Telephone [facility] C[facility]IOLOG[facility] [address] [address] Mansoor Silva MD 1720 [place] [address] Social History Tobacco Use Types Packs/Day Years [...] Telephone Encounter - Addie Lundberg RN - 06/19/2021 3:22 PM EDT Spoke with pt son regarding RDS recommendations above. No further questions at this time. * Telephone Encounter - Mansoor Silva MD - 06/19/2021 2:59 PM EDT Proceed with echocardiogram and stress/PET imaging for further evaluation. * Telephone Encounter - Addie Lundberg RN - 06/19/2021 1:22 PM EDT Pt is c/o increased fatigue over the last 2 weeks. He reports getting dressed wears him out. Pt sonstated that he will fall asleep when the son is driving him somewhere. Pt denies chest pain, dizziness, palpitations, SOB, swelling, or other cardiac symptoms. Pt states he hasn't had any trouble sleeping at night, is drinking plenty of water, and eating well. He reports he is feeling the same way he did prior to PCI. He has been taking all medications on med list, has not stopped Plavix or ASA. BP is averaging 145-155/90's HR 70's. Remote check for SJM last transmission was 06/10 with one NSVTepisode. Advised son will call back with further recommendations from RDS documented in this encounter Plan of Treatment Upcoming Encounters Date Type Department Care Team (Late st Contact Info) Description 11/12/2024 2:15 PM EDT Office Visit [facility] [address] [place] [address] [place] [phone] Mansoor Silva MD [address] [place], [place] [id number] 01/21/2025 2:30 PM EDT Office Visit [facility] [address] [facility] [address] [place] [address] [place] [address] Monica Quintero, DNP, VAT TENDER [address] [facility] [address] [place] [address] [place] [address] documented as of this encounter Results * STRESS TEST WITH [...] block Arrhythmias during recovery: occasional PVC's. Test Blocker And Cutter Contact Lens ECG [place] us Mansoor Silva MD CV STRESS ORDERABLES Final Re sult documented in this encounter Visit Diagnoses Diagnosis Coronary artery disease of bypass graft of [place] heart with stable angina pectoris- Primary Hyperlipidemia LDL goal <70 Other and unspecified hyperlipidemia Coronary artery disease of bypass graft of [place] heart with stable angina pectoris Hyperlipidemia LDL goal <70 Other and unspecified hyperlipidemia documented in this encounter Care Teams Marketing Reporting Analyst Relationship Specialty Start Date End Date Allyson Avery APRN PCP - General Internal Medicine 03/15/21 07/21/23 documented as of this encounter
--- OUTSIDE RECORDS SUMMARY | 2024-07-21 17:15 | XMS_ITS | Encounter Summary ---
[facility] Organization [facility] Address [address] [place] [address] Care Team Providers Care Real Estate Sales Manager Name Role Phone Allyson Avery YOKO Primary Care Provider + [phone] Reason for Visit * Reason Comments Coronary Artery Disease Encounter Details Date Type Department Care Team (Late st Contact Info) Description 10/12/2021 11:30 AM EST Office Visit [facility] CARDIOLOG[facility] [address] [phone] Mansoor Silva MD [address] [place] [address] Coronary artery disease of bypass graft of [place] heart with stable angina pectoris (Primary Dx); Chronic systolic congestive heart failure; SSS (sick sinus syndrome); Hyperlipidemia LDL goal <70; Essential hypertension Social History Tobacco Use Types Packs/Day Years [...] Sign Reading Time Taken Comments Blood Pressure 136/60 10/12/2021 11:34 AM EST Pulse 70 10/12/2021 11:34 AM EST Temperature - - Respiratory Rate - - Oxygen Saturation 98% 10/12/2021 11:34 AM EST Inhaled Oxygen Concentration - - Weight 74.4 kg (164 lb) 10/12/2021 11:34 AM EST Height 176.5 cm (5' 9.5 ) 10/12/2021 11:34 AM ES T Body Mass Index 23.87 10/12/2021 11:34 AM EST documented in this encounter Progress Notes * Mansoor Silva MD - 10/12/2021 11:30 AM EST OFFICE VISIT NOTE [facility] Name: Mario Menchaca Date: 10/12/2021 : 1940 REFERRING/PRIMARY PROVIDER: Allyson Avery APRN Chief Complaint Patient presents with ??? Coronary Artery Disease HPI: Mario Menchaca is a 81 y.o. male who presents today for follow up of CAD, ischemic cardiomyopathy, [place] ICD. Associated history of diabetes mellitus, hypertension, hyperlipidemia. History of CABG, I performed PCI of SVG- OM 10/2016 at [facility], as well as PCI of the MONROY-LAD anastomosis with a2.5 x 60 mm Synergy EMANUEL, 06/2017, occluded SVG-PDA and [place] RCA, patent SVG-OM. Dual- chamber pacemaker upgraded to ICD [place] [address] Will Pérez, he suffered two inappropriate shocks, found to have loose set screw which was repaired 03/2020. EF 35-40% by most recent echo 06/2021, moderate MR. Stress MPS 06/2021 with inferior infarct, no ischemia. He has done well since last visit. He denies any angina, unusual dyspnea, syncope or heart failure symptoms. 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 He reports previous intolerance to Crestor daily due to severe myalgias, and is taking it once a week. ROS:Pertinent positives as listed in the HPI. All other systems reviewed and negative. Past Medical History: Diagnosis Date ??? Arthritis ??? Diabetes (HCC) ??? Gout ??? Hyperlipidemia ??? Hypertension ??? Kidney stones Past Surgical History: Procedure Laterality Date ??? FOREARM SURGERY ??? WRIST SURGERY Social History Socioeconomic History ??? Marital status: Tobacco Use ??? Smoking status: Never Smoker ??? Smokeless tobacco: Never Used Substance and Sexual Activity ??? Alcohol use: Not Currently ??? Drug use: Never ??? Sexual activity: Defer Family History Problem Relation Age of Onset ??? No Known Problems Sister No Known Allergies Current Outpatient Medications Medication Instructions ??? allopurinol (ZYLOPRIM) 100 mg, Oral, Daily ??? aspirin 81 mg, Oral, Daily ??? carvedilol (COREG) 50 mg, Oral, 2 Times Daily ??? Jennaara Egodhka-Ovdjz-Jfx Lax (BIOHM COLON CLEANSER PO) 1 tablet, Oral, Daily ??? clopidogrel (PLAVIX) 75 mg, Oral, Daily ??? Coenzyme Q10 (COQ10 PO) 400 mg, Oral, Daily ??? colesevelam (WELCHOL) 1,875 mg, Oral, 2 Times Daily With Meals, 1 tablet in the morning and 2 tablets in the evening ??? Docusate Calcium (STOOL SOFTENER PO) 300 mg, Oral, Daily ??? L-ARGININE PO 1 tablet, Oral, Daily ??? levothyroxine (SYNTHROID, LEVOTHROID) 75 mcg, Oral, Daily ??? lisinopril (PRINIVIL,ZESTRIL) 20 mg, Oral, Daily ??? Methylsulfonylmethane (MSM PO) 1,000 mg, Oral, 2 times daily ??? multivitamin (MULTI-VITAMIN PO) 1 tablet, Oral, 2 times daily ??? [place]-3 Fatty Acids (FISH OIL PO) 2,400 mg, Oral, 2 times daily ??? ranolazine (RANEXA) 500 mg, Oral, 2 Times Daily ??? rosuvastatin (CRESTOR) 40 mg, Oral, Daily ??? Unable to find 1 each, Once, Med Name: cognium I tablet once daily Vitals: 10/12/21 1134 BP: 136/60 BP Location: Left arm Patient Position: Sitting Pulse: 70 SpO2: 98% Weight: 74.4 kg (164 lb) Height: 176.5 cm (69.5 ) Body mass index is 23.87 kg/m??. PHYSICAL EXAM: General Appearance: ?? well developed ?? well nourished Neck: ?? thyroid not enlarged ?? supple Respiratory: ?? no respiratory distress ?? normal breath sounds ?? no rales Cardiovascular: ?? no jugular venous distention ?? regular rhythm ?? apical impulse normal ?? S1 normal, S2 normal ?? no S3, no S4 ?? 2/6 systolic murmur ?? no rub, no thrill ?? carotid pulses normal; no bruit ?? lower extremity edema: none Skin: warm, dry [...] filling pressures. Labs: No results found for: CHOL, TRIG, HDL, LDL, AST, ALT No results found for: HGBA1C No results found for: CREATININE No results found for: EGFRIFNONA ASSESSMENT: Problem List Items Addressed This Visit Cardiac and Vasculature Coronary artery disease of bypass graft of [place] heart with stable angina pectoris ([facility]) - Primary Overview 06/26/21: Stress PET: Medium sized infarct in inferior wall with no significant ischemia, LVEF 36% 10/12/16 LHC: Significant stenosis in the SVG to OM2/3 treated with EMANUEL. Moderate lesion distal to the MONROY to the LAD 50-70% by Dr. Silva @ [facility] 12/09/14 LHC: 1/3 grafts occluded, BMS to SVG to OM2/OM3. EF 35-40% Failed attempt at PCI to OM1 distribution due to tortuosity and heavy calcification. BMS to proximal LAD. 04/29/07 CABG: MONROY to LAD, SVG to D1 & OM2, SVG to RCA. Hyperlipidemia LDL goal <70 Essential hypertension SSS (sick sinus syndrome) ([facility]) Overview 03/16/20 Upgrade of his dual-chamber pacemaker to SJM dual-chamber ICD Chronic systolic congestive heart failure (HCC) Overview 06/29/21 Echo: LVEF 36-40%, grade II diastolic dysfunction, moderate MR, moderately reduced RVSF PLAN: 1. CAD: Continue aspirin, Plavix, rosuvastatin, and carvedilol Asymptomatic currently Continue exercise ?? 2. Chronic systolic heart failure: Continue carvedilol and lisinopril at current doses NYHA I-II symptoms Saint Ramana ICD in place ?? 3. Presence of [place] ICD: Interrogation today: Showed 97% RV pacing, changed AV delay to shorten them, originally 300/235 ms,change to 250/225 ms. Disabled VIP, to minimize RV pacing. Continue in office interrogation every 6-9 months Remote interrogations every 3 months ?? 4. Hypertension: Home blood pressures running 120s mmHg systolic Continue current medical therapy. ?? 5. Hyperlipidemia: Goal LDL less than 70 Continue high intensity statin therapy with Crestor 40mg weekly, intolerant to daily or every otherday use Follow-up Return in about 6 months (around 04/11/2022) for with St. Ramana ICD interrogation. Scribed for Mansoor Silva MD by Sade Penaloza PA-C. 10/12/2021 11:55 EST I,Mansoor Silva M.D., personally performed the services described in this documentation as scribedby the above named individual in my presence, and it is both accurate and complete. Mansoor Silva MD, [facility] Cardiology 10/12/21 12:12 EST documented in this encounter Plan of Treatment Upcoming Encounters Date Type Department Care Team (Late st Contact Info) Description 11/12/2024 2:15 PM EDT Office Visit [facility] [address] [facility] [address] [place] [phone] Mansoor Silva MD [address] [facility] [address] [place] [address] 01/21/2025 2:30 PM EDT Office Visit [facility] NE[facility] [address] [facility] [address] [place] [phone] Monica Quintero, DNP, [employer]OVING DEPARTMENT END FINDER [address] [facility] [address] [place] [address] documented as of this encounter Visit Diagnoses Diagnosis Coronary artery disease of bypass graft of [place] heart with stable angina pectoris- Primary Chronic systolic congestive heart failure SSS (sick sinus syndrome) Sinoatrial node dysfunction Hyperlipidemia LDL goal <70 Other and unspecified hyperlipidemia Essential hypertension Unspecified essential hypertension documented in this encounter Care Teams Real Estate Sales Manager Relationship Specialty Start Date End Date Allyson Avery APRN PCP - General Internal Medicine 03/15/21 07/21/23 documented as of this encounter
--- OUTSIDE RECORDS SUMMARY | 2024-07-21 17:15 | XMS_ITS | Encounter Summary ---
[facility] Address [address] [place] [address] Care Team Providers Care Animal Biologist Name Role Phone Allyson Avery YOKO Primary Care Provider + [phone] Reason for Visit * Reason Comments Coronary Artery Disease Encounter Details Date Type Department Care Team (Late st Contact Info) Description 04/12/2022 2:45 PM EDT Office Visit [facility]IOLOG[facility] [address] [phone] Mansoor Silva MD [address] [place] [address] Coronary artery disease of bypass graft of [place] heart with stable angina pectoris (Primary Dx); Chronic systolic congestive heart failure; Essential hypertension; Hyperlipidemia LDL goal <70; Ischemic cardiomyopathy Social History Tobacco Use Types Packs/Day Years [...] Sign Reading Time Taken Comments Blood Pressure 144/70 04/12/2022 2:09 PM EDT Pulse 70 04/12/2022 2:09 PM EDT Temperature - - Respiratory Rate - - Oxygen Saturation 98% 04/12/2022 2:09 PM EDT Inhaled Oxygen Concentration - - Weight 73 kg (161 lb) 04/12/2022 2:09 PM EDT Height 176.5 cm (5' 9.5 ) 04/12/2022 2:09 PM EDT Body Mass Index 23.43 04/12/2022 2:09 PM EDT documented in this encounter Progress Notes * Mansoor Silva MD - 04/12/2022 2:45 PM EDT OFFICE VISIT NOTE [facility] Name: Meet Menchaca Date: 04/12/2022 : 1940 REFERRING/PRIMARY PROVIDER: Allyson Avery APRN Chief Complaint Patient presents with ??? Coronary Artery Disease HPI: Meet Menchaca is a 81 y.o. male who presents today for follow up of CAD,??ischemic cardiomyopathy, [place] ICD. ??Associated history of diabetes mellitus, hypertension, hyperlipidemia. ??History of CABG, I performed PCI of SVG-OM 10/2016 at [facility], as well as PCI of the MONROY-LAD anastomosis with a 2.5 x 60 mm Synergy EMANUEL,??06/2017, occluded SVG-PDA and [place] RCA, patent SVG-OM. ??Dual-chamber pacemaker [place] [address] Will Pérez, he suffered two inappropriate shocks, found to have loose set screw which was repaired 03/2020. ??EF 35-40% by most recent echo 06/2021, moderate MR. Stress MPS 06/2021 with inferior infarct, no ischemia. 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 had some issues with pacemaker mediated tachycardia, now resolved after some adjustments by EP clinic. Reports some fatigue but still working 10 to 12 hours/day. ROS:Pertinent positives as listed in the HPI. All other systems reviewed and negative. Past Medical History: Diagnosis Date ??? Arthritis ??? Diabetes (HCC) ??? Gout ??? Kidney stones Past Surgical History: Procedure Laterality Date ??? FOREARM SURGERY ??? TOOTH EXTRACTION ??? WRIST SURGERY Social History Socioeconomic History ??? Marital status: Tobacco Use ??? Smoking status: Never Smoker ??? Smokeless tobacco: Never Used Vaping Use ??? Vaping Use: Never used Substance and Sexual Activity ??? Alcohol use: Not Currently ??? Drug use: Never ??? Sexual activity: Defer Family History Problem Relation Age of Onset ??? No Known Problems Sister No Known Allergies Current Outpatient Medications Medication Instructions ??? allopurinol (ZYLOPRIM) 100 mg, Oral, Daily ??? aspirin 81 mg, Oral, Daily ??? B Complex Vitamins (VITAMIN B COMPLEX PO) Oral, Daily ??? carvedilol (COREG) 50 mg, Oral, 2 Times Daily ??? clopidogrel (PLAVIX) 75 mg, Oral, Daily ??? Coenzyme Q10 (COQ10 PO) 400 mg, Oral, Daily ??? colesevelam (WELCHOL) 1,250 mg, Oral, 2 Times Daily With Meals ??? Docusate Calcium (STOOL SOFTENER PO) 300 mg, Oral, Daily ??? ferrous sulfate 325 mg, Oral, Daily With Breakfast ??? L-ARGININE PO 1 tablet, Oral, Daily ??? levothyroxine (SYNTHROID, LEVOTHROID) 75 mcg, Oral, Daily ??? lisinopril (PRINIVIL,ZESTRIL) 20 mg, Oral, Daily ??? Methylsulfonylmethane (MSM PO) 1,000 mg, Oral, 2 times daily ??? multivitamin (THERAGRAN) tablet tablet 1 tablet, Oral, 2 times daily ??? [place]-3 Fatty Acids (FISH OIL PO) 2,400 mg, Oral, 2 times daily ??? ranolazine (RANEXA) 500 mg, Oral, 2 Times Daily ??? rosuvastatin (CRESTOR) 40 mg, Oral, Weekly ??? Unable to find 1 each, Once, Med Name: cognium I tablet once daily Vitals: 04/12/22 1409 BP: 144/70 BP Location: Left arm Patient Position: Sitting Pulse: 70 SpO2: 98% Weight: 73 kg (161 lb) Height: 176.5 cm (69.5 ) Body mass index is 23.43 kg/m??. PHYSICAL EXAM: General Appearance: ?? well developed ?? well nourished Neck: ?? thyroid not enlarged ?? supple Respiratory: ?? no respiratory distress ?? normal breath sounds ?? no rales Cardiovascular: ?? no jugular venous distention ?? regular rhythm ?? apical impulse normal ?? S1 normal, S2 normal ?? no S3, no S4 ?? no murmur ?? no rub, no thrill ?? carotid pulses normal; no bruit ?? pedal pulses normal ?? lower extremity edema: none Skin: warm, [...] Coronary artery disease of bypass graft of [place] heart with stable angina pectoris (HCC) - Primary Overview 06/26/21: Stress PET: Medium sized infarct in inferior wall with no significant ischemia, LVEF 36% 10/12/16 LHC: Significant stenosis in the SVG to OM2/3 treated with EMANUEL. Moderate lesion distal to the MONROY to the LAD 50-70% by Dr. Silva @ [facility] 12/09/14 LHC: 1/3 grafts occluded, BMS to SVG to OM2/OM3. EF 35-40% Failed attempt at PCI to OM1 distribution due to tortuosity and heavy calcification. BMS to proximal LAD. 04/29/07 CABG: MONROY to LAD, SVG to D1 & OM2, SVG to RCA. Hyperlipidemia LDL goal <70 Essential hypertension Chronic systolic congestive heart failure (HCC) Overview 06/29/21 Echo: LVEF 36-40%, grade II diastolic dysfunction, moderate MR, moderately reduced RVSF Ischemic cardiomyopathy Overview ?? 03/16/20 Upgrade of his dual-chamber pacemaker to [facility] dual-chamber ICD PLAN: 1.?CAD: Continue aspirin, Plavix, rosuvastatin, and carvedilol Asymptomatic currently Continue exercise ?? 2.?Chronic systolic heart failure: Continue carvedilol and lisinopril at current doses NYHA I-II symptoms Saint Ramana ICD in place ?? 3.?Presence??of [place] ICD: Remote interrogation 6022 showed normal function, short-lived ventricular arrhythmia asymptomatic. Continue in office interrogation every 6-9 months Remote interrogations every 3 months ?? 4. ??Hypertension: Well-controlled, goal blood pressure less than 140/90 or thereabout. Continue current medical therapy. ?? 5. ??Hyperlipidemia: Goal LDL less than 70 Continue high intensity statin therapy with Crestor 40mg weekly, intolerant to daily or every otherday use 6. Preop cardiovascular assessment: Okay to hold aspirin and Plavix 5 days prior to dental procedures and resume day after. Advance Care Planning ACP discussion was held with the patient during this visit. Patient does not have an advance directive, information provided. Follow-up Return in about 6 months (around 10/13/2022). Mansoor Silva MD, [facility] Interventional Cardiology documented in this encounter Plan of Treatment Upcoming Encounters Date Type Department Care Team (Late st Contact Info) Description 11/12/2024 2:15 PM EDT Office Visit [facility] CARDIOLOGY [address] [facility] [address] [place] [phone] Mansoor Silva MD [address] [facility] [address] [place] [address] 01/21/2025 2:30 PM EDT Office Visit [facility] NEUROLOGY [address] [facility] [address] [place] [address] Monica Quintero, DNP, TRAINING AND DEVELOPMENT PROFESSIONAL [address] [facility] [address] [place] [address] documented as of this encounter Visit Diagnoses Diagnosis Coronary artery disease of bypass graft of [place] heart with stable angina pectoris- Primary Chronic systolic congestive heart failure Essential hypertension Unspecified essential hypertension Hyperlipidemia LDL goal <70 Other and unspecified hyperlipidemia Ischemic cardiomyopathy Other specified forms of chronic ischemic heart disease documented in this encounter Care Teams Animal Biologist Relationship Specialty Start Date End Date Allyson Avery APRN PCP - General Internal Medicine 03/15/21 07/21/23 documented as of this encounter
--- OUTSIDE RECORDS SUMMARY | 2024-07-21 17:15 | XMS_ITS | Encounter Summary ---
Author Organization [facility] Address [address] [place] [address] Care Team Providers Care Seamer Elastic Band Name Role Phone Allyson Avery APRN Primary Care Provider + [phone] Reason for Referral * Consultation (Routine) - Closed Specialty Diagnoses / Procedures Referred By Contact Referred To Contact Cardiac Electrophysiology / Cardiology Diagnoses Pacemaker-mediated tachycardia Mansoor Silva MD [address] [place] [address] Phone: tel: fax: [facility] [address] [place] [phone] Phone: tel: fax: Referral ID Status Reason Start Date Expiration Date V isits Requested Visits Authorized [id number] Closed Specialty Services Required 11/21/2021 11/21/2022 1 1 Encounter Details Date Type Department Care Team (Late st Contact Info) Description 11/21/2021 Telephone [facility] [address] [place], [place] [phone] Mansoor Silva MD [address] [place] [address] Social History Tobacco Use Types Packs/Day Years [...] as of this encounter Progress Notes * Addie Chappell RN - 11/21/2021 3:03 PM EDTAddended by: ADDIE CHAPPELL on: 11/21/2021 03:03 PM Modules accepted: Orders documented in this encounter Miscellaneous Notes * Telephone Encounter - Jesika Hatfield RN - 11/22/2021 1:37 PM EDT Pt scheduled for in-office device check w/[employer] rep 11/24/2021, to evaluate PMT & possiblechange to pacing parameters. * Telephone Encounter - Mansoor Silva MD - 11/21/2021 3:00 PM EDT Electrophysiology consult for symptomatic pacemaker mediated tachycardia * Telephone Encounter - Jesika Hatfield RN - 11/21/2021 2:13 PM EDT Per Rubin Meehan/[employer] remote transmission received today: PMT-58 episodes between 11/15-11/21/2021. Report in MUR[facility]. V-rates 110s bpm. Pt reports shortness of breath last evening during the PMT episodes, denies chest pain. Device changes were made at last office visit on 10/12/2021. documented in this encounter Plan of Treatment Upcoming Encounters Date Type Department Care Team (Late st Contact Info) Description 11/12/2024 2:15 PM EDT Office Visit [facility] [address] [facility] [address] [place] [phone] Mansoor Silva MD [address] [facility] [address] [place] [address] 01/21/2025 2:30 PM EDT Office Visit [facility] NEUROLOG[facility] [address] [facility] [address] [place] [address] Monica Quintero, SAMUEL, DIRECTOR RISK [address] [facility] [address] [place] [address] Scheduled Referrals Name Type Priority Associated Diagnoses Order Schedule Ambulatory Referral to Cardiac Electrophysiology Outpatient Referral Routine Pacemaker-mediated tachycardia Ordered: 11/21/2021 documented as of this encounter Visit Diagnoses Diagnosis Pacemaker-mediated tachycardia- Primary Other specified cardiac dysrhythmias documented in this encounter Care Teams Seamer Elastic Band Relationship Specialty Start Date End Date Allyson Avery APRN PCP - General Internal Medicine 03/15/21 07/21/23 documented as of this encounter
--- OUTSIDE RECORDS SUMMARY | 2024-07-21 17:15 | XMS_ITS | Encounter Summary ---
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) (Primary Dx); Hyperlipidemia LDL goal <70; Essential hypertension; Chronic systolic congestive heart failure; Ischemic cardiomyopathy Social History Tobacco Use Types Packs/Day Years Used Date Smoking Tobacco: Never Smokeless Tobacco: Never Tobacco Cessation:Counseling Given: Not Answered Alcohol Use Standard Drinks/Week Comments Not Currently [...] Sign Reading Time Taken Comments Blood Pressure 138/70 12/27/2022 2:31 PM EDT Pulse 81 12/27/2022 2:31 PM EDT Temperature - - Respiratory Rate - - Oxygen Saturation 99% 12/27/2022 2:31 PM EDT Inhaled Oxygen Concentration - - Weight 73 kg (161 lb) 12/27/2022 2:31 PM EDT Height 177.8 cm (5' 10 ) 12/27/2022 2:31 PM EDT Body Mass Index 23.1 12/27/2022 2:31 PM EDT documented in this encounter Progress Notes * Mansoor Silva MD - 12/27/2022 2:30 PM EDTAssociated Order(s): ECG 12 Lead Post-Procedure Diagnose(s): 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 Coronary artery disease of bypass graft of skagway heart wit HPI: Meet Menchaca is a 82 y.o. male who presents today for follow up of??CAD,??ischemic cardiomyopathy, Saint Ramana ICD. ??Associated??history of diabetes mellitus, hypertension, hyperlipidemia. ??History of CABG, I performed PCI of SVG-OM 10/2016 at [facility], as well as PCI of the MONROY-LAD anastomosis with a 2.5 x 60 mm Synergy EMANUEL,??06/2017, occluded SVG-PDA and skagway RCA, patent SVG- OM. ??Dual-chamber pacemaker upgraded [place] [address] Will Pérez, he suffered two inappropriate shocks,found to have loose set screw which was repaired 03/2020. ??EF 35-40%??by most recent echo 06/2021, moderate MR. Stress MPS 06/2021 with inferior infarct, no ischemia. Doing very well clinically, denies chest pain or shortness of breath, works around the house, does weed eating yard work, rest when he needs to pee ROS:Pertinent positives as listed in the HPI. All other systems reviewed and negative. Past Medical History: Diagnosis Date ??? Arthritis ??? Diabetes ??? Gout ??? Kidney stones Past Surgical History: Procedure Laterality Date ??? FOREARM SURGERY ??? TOOTH EXTRACTION ??? WRIST SURGERY Social History Socioeconomic History ??? Marital status: Tobacco Use ??? Smoking status: Never ??? Smokeless tobacco: Never Vaping Use ??? Vaping Use: Never used [...] COMPLEX PO) Oral, Daily ??? carvedilol (COREG) 25 mg, Oral, 2 Times Daily ??? clopidogrel (PLAVIX) 75 MG tablet TAKE ONE TABLET BY MOUTH DAILY ??? Docusate Calcium (STOOL SOFTENER PO) 300 mg, Oral, Daily ??? ferrous sulfate 325 mg, Oral, Daily With Breakfast ??? L-ARGININE PO 1 tablet, Oral, Daily ??? levothyroxine (SYNTHROID, LEVOTHROID) 75 mcg, Oral, Daily ??? lisinopril (PRINIVIL,ZESTRIL) 20 mg, Oral, Daily ??? Methylsulfonylmethane (MSM PO) 1,000 mg, Oral, 2 times daily ??? multivitamin (THERAGRAN) tablet tablet 1 tablet, Oral, 2 times daily ??? rosuvastatin (CRESTOR) 40 mg, Oral, Weekly ??? Unable to find 1 each, Once, Med Name: cognium I tablet once daily Vitals: 12/27/22 1431 BP: 138/70 BP Location: Right arm Patient Position: Sitting Cuff Size: Adult Pulse: 81 SpO2: 99% Weight: 73 kg (161 lb) Height: 177.8 cm (70 ) Body mass index is 23.1 kg/m??. PHYSICAL EXAM: General Appearance: ?? well [...] warm, dry RESULTS: ECG 12 Lead Date/Time: 12/27/2022 2:54 PM Performed by: Mansoor Silva MD Authorized by: Mansoor Silva MD Comparison: compared with previous ECG from 01/18/2022 Similar to previous ECG Rhythm: paced Rate: normal BPM: 72 QRS axis: normal Clinical impression: non-specific ECG Comments: A sensed V paced Saint Ramana dual-chamber ICD, DDDR backup rate of 70, RA 96% paced, P wave greater than 5 mV, threshold 0.62 V, impedance 390 ohms, RV greater than 9 9% paced, threshold 0.75 V, impedance 380 ohms, HV68 ohms, 4.3 years battery life, no significant arrhythmia. 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 Moderate lesion distal to the MONROY to the LAD 50-70% by Dr. Silva @ [facility] 12/09/14 [facility]: 1/3 grafts occluded, BMS to SVG to OM2/OM3. EF 35-40% Failed attempt at PCI to OM1 distribution due to tortuosity and heavy calcification. BMS to proximal LAD. 04/29/07 CABG: MONROY to LAD, SVG to D1 & OM2, SVG to RCA. Hyperlipidemia LDL goal <70 Essential hypertension Chronic systolic congestive heart failure Overview 06/29/21 Echo: LVEF 36-40%, grade II diastolic dysfunction, moderate MR, moderately reduced RVSF Ischemic cardiomyopathy Overview ?? 03/16/20 Upgrade of his dual-chamber pacemaker to [employer] dual-chamber ICD PLAN: 1.?CAD: Continue aspirin, Plavix, rosuvastatin, and carvedilol Continue exercise Discontinue Ranexa due to lack of angina ?? 2.?Chronic systolic heart failure: Continue carvedilol and lisinopril at current doses NYHA I-II??symptoms Saint Ramana ICD in place today's in office interrogation shows normal function with normal sensing and pacing thresholds. ?? 3.?Presence??of Saint Ramana ICD: Continue in office interrogation every 6-9 months Remote interrogations every 3 months ?? 4. ??Hypertension: Goal blood pressure less than 130/80 ?? 5. ??Hyperlipidemia: Goal LDL less than 70 Continue high intensity statin therapy??with Crestor 40mg weekly, intolerant to daily or every other day use Discontinue coenzyme every 10, WelChol, and omega-3 fatty acid due to insufficient data supporting use Advance Care Planning ACP discussion was held with the patient during this visit. Patient does not have an advance directive, information provided. Follow-up Return in about 9 months (around 09/28/2023). Mansoor Silva MD, [facility], [facility] Interventional Cardiology documented in this encounter Plan of Treatment Upcoming Encounters Date Type Department Care Team (Late st Contact Info) Description 11/12/2024 2:15 PM EDT Office Visit [facility] [address] [place] [address] [address] [place] [address] Mansoor Silva MD [address] [facility] [address] [place] [address] 01/21/2025 2:30 PM EDT Office Visit [facility] [address] [facility] [address] [place] [address] Monica Quintero, SAMUEL, NIGHT B[employer]ER [address] [facility] [address] [place] [address] Scheduled Orders Name Type Priority Associated Diagnoses Orde r Schedule SCANNED - CARDIOLOGY Cardiac Services Ordered: 12/27/2022 documented as of this encounter Procedures Procedure Name Priority Date/Time Associated Diagnosis Comments ECG 12-LEAD Routine 12/27/2022 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 12/27/2022 ??2:55 PM ECG 12 Lead Date/Time: 12/27/2022 2:54 PM Performed by: Mansoor Silva MD Authorized by: Mansoor Silva MD Comparison: compared with previous ECG from 01/18/2022 Similar to previous ECG Rhythm: paced Rate: normal BPM: 72 QRS axis: normal Clinical impression: non-specific ECG Comments: A sensed V paced Procedure Note Mansoor Silva MD - 12/27/2022 2:30 PM EDT OFFICE VISIT NOTE [facility] Name: Meet Menchaca Date: 12/27/2022 : 1940 REFERRING/PRIMARY PROVIDER: Allyson Avery APRN Chief Complaint Patient presents with ? ? Coronary artery disease of bypass graft of skagway heart wit HPI: Meet Menchaca is a 82 y.o. male who presents today for follow upof??CAD,??ischemic cardiomyopathy, Saint Ramana ICD. ??Associated??history ofdiabetes mellitus, hypertension, hyperlipidemia. ??History of CABG, Iperformed PCI of SVG-OM 10/2016 at [facility], as well as PCI of the MONROY-LADanastomosis with a 2.5 x 60 mm Synergy EMANUEL,??06/2017, occluded SVG-PDA andnative RCA, patent SVG-OM. ??Dual-chamber pacemaker upgraded [place] ICD in [address]by [place]. Will Péerz, he suffered two inappropriate shocks, found to haveloose set screw which was repaired 03/2020. ??EF 35-40%??by most recent echo06/2021, moderate MR. Stress MPS 06/2021 with inferior infarct, noischemia. Doing very well clinically, denies chest pain or shortness of breath,works around the house, does weed eating yard work, rest when he needs topee ROS:Pertinent positives as listed in the HPI. All other systems reviewedand negative. Past Medical History: Diagnosis Date ? ? Arthritis ? ? Diabetes ? ? Gout ? ? Kidney stones Past Surgical History: Procedure Laterality Date ? ? FOREARM SURGERY ? ? TOOTH EXTRACTION ? ? WRIST SURGERY Social History Socioeconomic History ? ? Marital status: Tobacco Use ? ? Smoking status: Never ? ? Smokeless tobacco: Never Vaping Use ? ? Vaping Use: Never used Substance and Sexual Activity ? ? Alcohol use: Not Currently ? ? Drug use: Never ? ? Sexual activity: Defer Family History Problem Relation Age of Onset ? ? No Known Problems Sister No Known Allergies Current Outpatient Medications Medication Instructions ? ? allopurinol (ZYLOPRIM) 100 mg, Oral, Daily ? ? aspirin 81 mg, Oral, Daily ? ? B Complex Vitamins (VITAMIN B COMPLEX PO) Oral, Daily ? ? carvedilol (COREG) 25 mg, Oral, 2 Times Daily ? ? clopidogrel (PLAVIX) 75 MG tablet TAKE ONE TABLET BY MOUTH DAILY ? ? Docusate Calcium (STOOL SOFTENER PO) 300 mg, Oral, Daily ? ? ferrous sulfate 325 mg, Oral, Daily With Breakfast ? ? L-ARGININE PO 1 tablet, Oral, Daily ? ? levothyroxine (SYNTHROID, LEVOTHROID) 75 mcg, Oral, Daily ? ? lisinopril (PRINIVIL,ZESTRIL) 20 mg, Oral, Daily ? ? Methylsulfonylmethane (MSM PO) 1,000 mg, Oral, 2 times daily ? ? multivitamin (THERAGRAN) tablet tablet 1 tablet, Oral, 2 times daily ? ? rosuvastatin (CRESTOR) 40 mg, Oral, Weekly ? ? Unable to find 1 each, Once, Med Name: cognium I tablet once daily Vitals: 12/27/22 1431 BP: 138/70 BP Location: Right arm Patient Position: Sitting Cuff Size: Adult Pulse: 81 SpO2: 99% Weight: 73 kg (161 lb) Height: 177.8 cm (70 ) Body mass index is 23.1 kg/m??. PHYSICAL EXAM: General Appearance: ?? well [...] warm, dry RESULTS: ECG 12 Lead Date/Time: 12/27/2022 2:54 PM Performed by: Mansoor Silva MD Authorized by: Mansoor Silva MD Comparison: compared with previous ECG from 01/18/2022 Similar to previous ECG Rhythm: paced Rate: normal BPM: 72 QRS axis: normal Clinical impression: non-specific ECG Comments: A sensed V paced Saint Ramana dual-chamber ICD, DDDR backup rate of 70, RA 96% paced, P wavegreater than 5 mV, threshold 0.62 V, impedance 390 ohms, RV greater than 99% paced, threshold 0.75 V, impedance 380 ohms, HV 68 ohms, 4.3 yearsbattery life, no significant arrhythmia. Results for orders placed during the hospital encounter of 06/29/21 Adult Transthoracic Echo Complete W/ Cont if Necessary Per Protocol Interpretation Summary ?? Calculated biplane EF 38%. left ventricular ejection fraction appears rowdy 36 - 40%. Left ventricular systolic function is moderately decreased. ?? Left ventricular diastolic function is consistent with (grade II w/highLAP) pseudonormalization. ?? Left atrial volume is moderately increased. ?? Moderately reduced right ventricular systolic function noted. ?? Estimated right ventricular systolic pressure from tricuspidregurgitation is mildly elevated (35-45 mmHg). 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 Silva @ [facility] 12/09/14 [facility]: 1/3 grafts occluded, BMS to SVG to OM2/OM3. EF 35-40% Failedattempt at PCI to OM1 distribution due to tortuosity and heavycalcification. BMS to proximal LAD. 04/29/07 CABG: MONROY to LAD, SVG to D1 & OM2, SVG to RCA. Hyperlipidemia LDL goal <70 Essential hypertension Chronic systolic congestive heart failure Overview 06/29/21 Echo: LVEF 36-40%, grade II diastolic dysfunction, moderate MR,moderately reduced RVSF Ischemic cardiomyopathy Overview ?? 03/16/20 Upgrade of his dual-chamber pacemaker to [employer] dual-chamberICD PLAN: 1.?CAD: Continue aspirin, Plavix, rosuvastatin, and carvedilol Continue exercise Discontinue Ranexa due to lack of angina ?? 2.?Chronic systolic heart failure: Continue carvedilol and lisinopril at current doses NYHA I-II??symptoms Saint Ramana ICD in place today's in office interrogation shows normalfunction with normal sensing and pacing thresholds. ?? 3.?Presence??of Saint Ramana ICD: Continue in office interrogation every 6-9 months Remote interrogations every 3 months ?? 4. ??Hypertension: Goal blood pressure less than 130/80 ?? 5. ??Hyperlipidemia: Goal LDL less than 70 Continue high intensity statin therapy??with Crestor 40mg weekly,intolerant to daily or every other day use Discontinue coenzyme every 10, WelChol, and omega-3 fatty acid due toinsufficient data supporting use Advance Care Planning ACP discussion was held with the patient during this visit. Patient doesnot have an advance directive, information provided. Follow-up Return in about 9 months (around 09/28/2023). 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
--- OUTSIDE RECORDS SUMMARY | 2024-07-21 17:15 | XMS_ITS | Encounter Summary ---
[facility] Address [address] [place] [address] Care Team Providers Care Asbestos Cement Sheet Supervisor Name Role Phone Allyson Avery YOKO Primary Care Provider + [phone] Reason for Visit * Reason Onset Date Comments Results 07/03/2021 Encounter Details Date Type Department Care Team (Late st Contact Info) Description 07/03/2021 Telephone [facility] [address] [phone] Mansoro Silva MD [address] [place] [address] Results Social History Tobacco Use Types Packs/Day Years [...] encounter Miscellaneous Notes * Telephone Encounter - Jen Dave RN - 07/03/2021 11:24 AM EDT Pt aware, continue current medications and keep scheduled follow up. ----- Message from Mansoor Silva MD sent at 06/30/2021 5:04 PM EDT ----- Please inform the patient of their test results. No significant change from previous echoes. Thank you. documented in this encounter Plan of Treatment Upcoming Encounters Date Type Department Care Team (Late st Contact Info) Description 11/12/2024 2:15 PM EDT Office Visit [facility] [address] [facility] [address] [place] [phone] Mansoor Silva MD [address] [facility] [address] [place] [address] 01/21/2025 2:30 PM EDT Office Visit [facility] [address] [facility] [address] [place] [address] Monica Quintero, DNP, LADLE MECHANIC [address] [facility] [address] [place], [place] [id number] documented as of this encounter Visit Diagnoses Not on filedocumented in this encounter Care Teams Asbestos Cement Sheet Supervisor Relationship Specialty Start Date End Date Allyson Avery APRN PCP - General Internal Medicine 03/15/21 07/21/23 documented as of this encounter
--- OUTSIDE RECORDS SUMMARY | 2024-07-21 17:15 | XMS_ITS | Encounter Summary ---
[facility] [address] [place] [address] Care Team Providers Care Electronic Imaging System Operator Name Role Phone Allyson Avery APRN Primary Care Provider + [phone] Reason for Referral * Diagnostic Imaging (Routine) - Closed Specialty Diagnoses / Procedures Referred By Contac t Referred To Contact Diagnoses Coronary artery disease of bypass graft of koyuk heart with stable angina pectoris HERNANDEZ (dyspnea on exertion) Procedures Adult Transthoracic Echo Complete W/ Cont if Necessary Per Protocol Mansoor Silva MD [address] [place] [address] Phone: tel: fax: [address] [address] Phone: tel: Referral ID Status Reason Start Date Expiration Date Visits Re quested Visits Authorized [id number] Closed 06/27/2021 06/27/2022 1 1 Reason for Visit * Diagnostic Imaging (Routine) - Closed Specialty Diagnoses / Procedures Referred By Contac t Referred To Contact Diagnoses Coronary artery disease of bypass graft of koyuk heart with stable angina pectoris HERNANDEZ (dyspnea on exertion) Procedures Adult Transthoracic Echo Complete W/ Cont if Necessary Per Protocol Mansoor Silva MD [address] [place] [address] Phone: tel: fax: [facility] [address] [place] [address] Phone: tel: Referral ID Status Reason Start Date Expiration Date Visits Re quested Visits Authorized [id number] Closed 06/27/2021 06/27/2022 1 1 Encounter Details Date Type Department Care Team (Late st Contact Info) Description 06/29/2021 1:00 PM EDT - 06/29/2021 11:59 PM EDT Hospital Encounter [facility] [address] [facility] 3rd FLOOR [place] [id number] Mansoor Silva MD [address] [facility] [address] [place] [address] Coronary artery disease of bypass graft of koyuk heart with stable angina pectoris; HERNANDEZ (dyspnea on exertion) Discharge Disposition: Home or Self Care Social [...] Sign Reading Time Taken Comments Blood Pressure - - Pulse - - Temperature - - Respiratory Rate - - Oxygen Saturation - - Inhaled Oxygen Concentration - - Weight 73.9 kg (163 lb) 06/29/2021 1:54 PM EDT Height 175.3 cm (5' 9 ) 06/29/2021 1:54 PM EDT Body Mass Index 24.07 06/29/2021 1:54 PM EDT documented in this encounter Medications [...] Day. 360 tablet 3 06/12/2021 07/19/2022 Cascara Xeixkyi-Rgnal-Uqm Lax (BIOHM COLON CLEANSER PO) Take 1 [...] mouth Daily. Taking 10 MG daily. 01/22/2024 Linn-3 Fatty Acids (FISH OIL PO) Take 2,400 [...] Progress Notes * Mansoor Silva MD - 06/29/2021 1:00 PM EDT Please inform the patient of their test results. No significant change from previous echoes. Thank you. documented in this encounter Plan of Treatment Upcoming Encounters Date Type Department Care Team (Late st Contact Info) Description 11/12/2024 2:15 PM EDT Office Visit [facility] [address] [facility] [address] [place] [phone] Mansoor Silva MD [address] [place], [place] [id number] 01/21/2025 2:30 PM EDT Office Visit [facility] [address] [facility] [address] [place] [address] Monica Quintero, DNP, [employer] [address] [place] [address] documented as of this encounter Procedures Procedure Name Priority Date/Time Associated Diagnosis Comments ECHO COMPLETE W/ DOPPLER AND COLOR FLOW Routine 06/29/2021 1:55 PM EDT Coronary artery disease of bypass graft of koyuk heart with stable angina pectoris HERNANDEZ (dyspnea on exertion) documented in this encounter Results * ECHO COMPLETE W/ DOPPLER AND COLOR FLOW (06/29/2021 1:55 PM EDT) BSA 1.9 m^2 [facility] IVSd 0.83 cm [facility] LVIDd 5.0 cm [facility] LVIDs 3.9 cm [facility] LVPWd 0.98 cm [facility] IVS/LVPW 0.85 [facility] FS 22.3 % [facility] EDV(Teich) 117.6 ml [facility] ESV(Teich) 65.0 ml [facility] EF(Teich) 44.7 % [facility] EDV(cubed) 124.1 ml [facility] ESV(cubed) 58.3 ml [facility] EF(cubed) 53.0 % [facility] LV mass(C)d 158.6 grams [facility] LV mass(C)dI 83.8 grams/m^2 [facility] SV(Teich) 52.6 ml [facility] SI(Teich) 27.8 ml/m^2 [facility] SV(cubed) 65.9 ml [facility] SI(cubed) 34.8 ml/m^2 [facility] Ao root diam 3.1 cm [facility] Ao root area 7.7 cm^2 [facility] LA dimension (2D) 4.9 cm [facility] LA/Ao 1.6 [facility] LVOT diam 2.0 cm [facility] LVOT area 3.1 cm^2 [facility] LVOT area(traced) 3.1 cm^2 [facility] LAd major 6.2 cm [facility] LVLd ap4 7.6 cm [facility] EDV(MOD-sp4) 132.0 ml [facility] LVLs ap4 7.1 cm [facility] ESV(MOD-sp4) 60.6 ml [facility] EF(MOD-sp4) 54.1 % [facility] LVLd ap2 7.7 cm [facility] EDV(MOD-sp2) 146.0 ml [facility] LVLs ap2 7.0 cm [facility] ESV(MOD-sp2) 81.0 ml [facility] EF(MOD-sp2) 44.5 % [facility] LA ESV (BP) 89.6 ml [facility] EF(MOD-bp) 38 % [facility] SV(MOD-sp4) 71.4 ml [facility] SVi(MOD-SP4) 37.7 ml/m^2 [facility] SV(MOD-sp2) 65.0 ml [facility] SVi(MOD-SP2) 34.3 ml/m^2 [facility] Ao root area (BSA corrected) 1.7 [facility] LV Cobb Vol (BSA corrected) 69.7 ml/m^2 [facility] LV Sys Vol (BSA corrected) 32.0 ml/m^2 [facility] TAPSE (>1.6) 1.2 cm [facility] LA ESV Index (BP) 47.3 ml/m^2 [facility] MV E max armando 91.7 cm/sec [facility] MV A max armando 79.7 cm/sec [facility] MV E/A 1.2 [facility] MV V2 max 80.5 cm/sec [facility] MV max PG 2.6 mmHg [facility] MV V2 mean 66.6 cm/sec [facility] MV mean PG 1.8 mmHg [facility] MV V2 VTI 22.9 cm [facility] MVA(VTI) 2.1 cm^2 [facility] MV P1/2t max armando 88.2 cm/sec [facility] MV P1/2t 102.5 msec [facility] MVA(P1/2t) 2.1 cm^2 [facility] MV dec slope 252.2 cm/sec^2 [facility] MV dec time 0.3 sec [facility] Ao pk armando 163.7 cm/sec [facility] Ao max PG 11.0 mmHg [facility] Ao max PG (full) 8.6 mmHg [facility] Ao V2 mean 110.2 cm/sec [facility] Ao mean PG 5.7 mmHg [facility] Ao mean PG (full) 4.3 mmHg [facility] Ao V2 VTI 30.6 cm [facility] KATHARINE(I,A) 1.5 cm^2 [facility] KATHARINE(I,D) 1.5 cm^2 [facility] KATHARINE(V,A) 1.5 cm^2 [facility] KATHARINE(V,D) 1.5 cm^2 [facility] LV V1 max PG 2.4 mmHg [facility] LV V1 mean PG 1.4 mmHg [facility] LV V1 max 78.0 cm/sec [facility] LV V1 mean 55.3 cm/sec [facility] LV V1 VTI 15.2 cm [facility] SV(Ao) 235.1 ml [facility] SI(Ao) 124.1 ml/m^2 [facility] SV(LVOT) 47.4 ml [facility] SI(LVOT) 25.1 ml/m^2 [facility] PA acc time 0.15 sec [facility] PI end-d armando 185.8 cm/sec [facility] TR max armando 260.8 cm/sec [facility] TR max PG 27.0 mmHg [facility] RVSP(TR) 35 mmHg [facility] RAP systole 8 mmHg [facility] PA pr(Accel) 10.9 mmHg [facility] MVA P1/2T LCG 2.5 cm^2 [facility] RV Base 3.7 cm [facility] RV Mid 2.3 cm [facility] RV S' 7.3 cm/sec [facility] Lat E/e' 11.4 [facility] Med E/e' 22.8 [facility] Lat Peak E' Armando 8.1 cm/sec [facility] Med Peak E' Armando 4.0 cm/sec [facility] CV ECHO MORE - BZI_BMI 24.1 kilograms/ m^2 [facility] CV ECHO MORE - BSA([place]) 1.9 m^2 [facility] CV ECHO MORE - BZI_METRIC_WEI GHT 73.9 kg [facility] CV ECHO MORE - BZI_METRIC_HEI GHT 175.3 cm [facility] Avg E/e' ratio 15.16 [facility] Target HR (85%) 118 bpm [facility] Max. Pred. HR (100%) 139 bpm [facility] CV VAS BP RIGHT ARM 144/93 mmHg [facility] Anatomical Region Laterality Modality Ultrasound 06/29/2021 1:11 [...] Coronary artery disease of bypass graft of koyuk heart with stable angina pectoris HERNANDEZ (dyspnea on exertion) Other dyspnea and respiratory abnormality documented in this encounter Care Teams Electronic Imaging System Operator Relationship Specialty Start Date End Date Allyson Avery APRN PCP - General Internal Medicine 03/15/21 07/21/23 documented as of this encounter
--- OUTSIDE RECORDS SUMMARY | 2024-07-21 17:15 | XMS_ITS | Encounter Summary ---
[facility] Address [address] [place] [address] Care Team Providers Care Equal Opportunity Assistant Name Role Phone Allyson Avery APRN Primary Care Provider + [phone] Reason for Visit * Reason Comments Coronary artery disease of bypass graft of koi heart wit Consult * Consultation (Routine) - Closed Specialty Diagnoses / Procedures Referred By Contact Referred To Contact Cardiac Electrophysiology / Cardiology Diagnoses Pacemaker-mediated tachycardia Mansoor Silva MD [address] [facility] [address] [place] [address] Phone: tel: fax: [facility] [address] [address] Phone: tel: fax: Referral ID Status Reason Start Date Expiration Date V isits Requested Visits Authorized [id number] Closed Specialty Services Required 11/21/2021 11/21/2022 1 1 Encounter Details Date Type Department Care Team (Late st Contact Info) Description 01/08/2022 3:00 PM EDT Office Visit [facility] [address] [facility] [address] [place] [phone] Triston Borjas DO [address] [facility] [place] [address] PMT (pacemaker-mediated tachycardia) (Primary Dx); SSS (sick sinus syndrome); Ischemic cardiomyopathy Social History Tobacco Use Types [...] Sign Reading Time Taken Comments Blood Pressure 120/64 01/08/2022 2:50 PM EDT Pulse 72 01/08/2022 2:50 PM EDT Temperature - - Respiratory Rate - - Oxygen Saturation 98% 01/08/2022 2:50 PM EDT Inhaled Oxygen Concentration - - Weight 75.4 kg (166 lb 3.2 oz) 01/08/2022 2:50 P M EDT Height 176.5 cm (5' 9.5 ) 01/08/2022 2:50 PM EDT Body Mass Index 24.19 01/08/2022 2:50 PM EDT documented in this encounter Progress Notes * Triston Borjas, - 01/08/2022 3:00 PM EDT Images from the original note were not included. Cardiac Electrophysiology Outpatient Consult Note [facility] Consult Note Meet Menchaca [id number] 01/08/2022 Primary Care Physician: Allyson Avery APRN Referred By: Mansoor Silva MD Subjective Chief Complaint: Diagnoses and all orders for this visit: 1. PMT (pacemaker-mediated tachycardia) (Primary) 2. SSS (sick sinus syndrome) (HCC) 3. Ischemic cardiomyopathy Chief Complaint Patient presents with ??? Coronary artery disease of bypass graft of koi heart wit Consult History of Present Illness: Meet Menchaca is a 81 y.o. male who presents to my electrophysiology clinic for evaluation of PMT. He has remote history of sick sinus syndrome for which she had a dual-chamber pacemaker which was upgraded to a dual-chamber ICD in 2019. His last echocardiogram was June 2021 showed an ejection fraction of 36-40%. Some mild adjustments were made to his device when he last saw Dr. Silva. Shortly thereafter, he had a home interrogation which was suggestive of PMT. Based on this he was referred to our clinic for further evaluation. Patient himself has few complaints. He does inform me he hasoccasional awareness of brief palpitations which are self-limiting. He denies dizziness or syncope.He has no current chest pain or significant dyspnea. Further denies orthopnea, PND, claudication, lower extremity edema. His blood pressures at home typically run about 130 mmHg systolic. His daughter accompanies him today and is very helpful in establishing history. She states that overall he is pretty much able to do what he wants to do with few limitations. Past Medical History: Patient Active Problem List Diagnosis Date Noted ??? Ischemic cardiomyopathy Priority: High Note Last Updated: 01/08/2022 ?? 03/16/20 Upgrade of his dual-chamber pacemaker to SJ dual-chamber ICD ??? SSS (sick sinus syndrome) ([facility]) 03/15/2021 Priority: High Note Last Updated: 01/08/2022 ?? 03/16/20 Upgrade of his dual-chamber pacemaker to SJM dual-chamber ICD ??? Chronic systolic congestive heart failure ([facility]) 10/10/2021 Priority: Medium Note Last Updated: 10/10/2021 06/29/21 Echo: LVEF 36-40%, grade II diastolic dysfunction, moderate MR, moderately reduced RVSF ??? 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 Moderate lesion distal to the MONROY to the LAD 50-70% by Dr. Silva @ [facility] 12/09/14 LHC: 1/3 grafts occluded, BMS to SVG to OM2/OM3. EF 35-40% Failed attempt at PCI to OM1 distribution due to tortuosity and heavy calcification. BMS to proximal LAD. 04/29/07 CABG: MONROY to LAD, SVG to D1 & OM2, SVG to RCA. ? ? Hyperlipidemia LDL goal <70 03/15/2021 Priority: Low ??? Essential hypertension 03/15/2021 Priority: Low ??? Gout ??? Arthritis ??? Hypothyroidism (acquired) 03/15/2021 Past Surgical History: Past Surgical History: Procedure Laterality Date ??? FOREARM SURGERY ??? WRIST SURGERY Social History: Social History Socioeconomic History ??? Marital status: Tobacco Use ??? Smoking status: Never Smoker ??? Smokeless tobacco: Never Used Vaping Use ??? Vaping Use: Never used Substance and Sexual Activity ??? Alcohol use: Not Currently ??? Drug use: Never ??? Sexual activity: Defer Medications: Current Outpatient Medications: ??? allopurinol (ZYLOPRIM) 100 MG tablet, Take 100 mg by mouth Daily., Disp: , Rfl: ??? aspirin 81 MG EC tablet, Take 81 mg by mouth Daily., Disp: , Rfl: ??? B Complex Vitamins (VITAMIN B COMPLEX PO), Take by mouth Daily., Disp: , Rfl: ??? carvedilol (COREG) 25 MG tablet, Take 2 tablets by mouth 2 (Two) Times a Day., Disp: 360 tablet, Rfl: 3 ??? clopidogrel (PLAVIX) 75 MG tablet, Take 1 tablet by mouth Daily., Disp: 90 tablet, Rfl: 3 ??? Coenzyme Q10 (COQ10 PO), Take 400 mg by mouth Daily., Disp: , Rfl: ??? colesevelam (WELCHOL) 625 MG tablet, Take 2 tablets by mouth 2 (Two) Times a Day With Meals., Disp: 180 tablet, Rfl: 5 ??? Docusate Calcium (STOOL SOFTENER PO), Take 300 mg by mouth Daily., Disp: , Rfl: ??? ferrous sulfate 325 (65 FE) MG tablet, Take 325 mg by mouth Daily With Breakfast., Disp: , Rfl: ??? L-ARGININE PO, Take 1 tablet by mouth Daily., Disp: , Rfl: ??? levothyroxine (SYNTHROID, LEVOTHROID) 75 MCG tablet, Take 75 mcg by mouth Daily., Disp: , Rfl: ??? lisinopril (PRINIVIL,ZESTRIL) 20 MG tablet, Take 20 mg by mouth Daily., Disp: , Rfl: ??? Methylsulfonylmethane (MSM PO), Take 1,000 mg by mouth 2 (two) times a day., Disp: , Rfl: ??? multivitamin (THERAGRAN) tablet tablet, Take 1 tablet by mouth 2 (two) times a day., Disp: , Rfl: ??? Blythe-3 Fatty Acids (FISH OIL PO), Take 2,400 mg by mouth 2 (two) times a day., Disp: , Rfl: ??? ranolazine (RANEXA) 500 MG 12 hr tablet, Take 1 tablet by mouth 2 (Two) Times a Day. (Patient taking differently: Take 500 mg by mouth Daily.), Disp: 180 tablet, Rfl: 3 ??? rosuvastatin (CRESTOR) 40 MG tablet, Take 1 tablet by mouth 1 (One) Time Per Week., Disp: 30 tablet, Rfl: 1 ??? Unable to find, 1 each 1 (One) Time. Med Name: cognium I tablet once daily, Disp: , Rfl: Allergies: No Known Allergies Objective Vital Signs: Vitals: 01/08/22 1450 BP: 120/64 BP Location: Left arm Patient Position: Sitting Pulse: 72 SpO2: 98% Weight: 75.4 kg (166 lb 3.2 oz) Height: 176.5 cm (69.5 ) PHYSICAL EXAM General appearance: Awake, alert, cooperative Head: Normocephalic, without obvious abnormality, atraumatic Eyes: Conjunctivae/corneas clear, EOMs intact Neck: no adenopathy, no carotid bruit, no JVD and thyroid: not enlarged Lungs: clear to auscultation bilaterally, normal percussion bilaterally and no rhonchi or crackles , ' symmetric Heart: regular rate and rhythm, S1, S2 normal, no murmur, click, rub or gallop Abdomen: Soft, non-tender, bowel sounds normal, no organomegaly Extremities: extremities normal, atraumatic, no cyanosis or edema Skin: Skin color, turgor normal, no rashes or lesions Neurologic: Grossly normal Cardiac Testing: I personally viewed and interpreted the patient's EKG/Telemetry/lab data Procedures Tobacco Cessation: N/A Obstructive Sleep Apnea Screening: N/A Assessment & Plan Diagnoses and all orders for this visit: 1. PMT (pacemaker-mediated tachycardia) (Primary) 2. SSS (sick sinus syndrome) (HCC) 3. Ischemic cardiomyopathy Diagnosis Plan 1. PMT (pacemaker-mediated tachycardia) This patient's Cardiac Implanted Electronic Device was manually interrogated and reprogrammed during the patient encounter today. Iterative programming changeswere manually made to determine the sensing threshold, pacing threshold, lead impedance as well as underlying cardiac rhythm. These programming changes were not limited to but included some or all ofthe following when appropriate: pacing mode, programmed AV delays, blanking periods, and refractoryperiods. Data obtained as a result of these manual programing changes informed the patient's CIED permanent programming. 2. SSS (sick sinus syndrome) (HCC) permanent pacemaker in situ. Asymptomatic. 3. Ischemic cardiomyopathy aspirin. Statin. Body mass index is 24.19 kg/m??. I spent 42 minutes in consultation with this patient which included more than 65% of this time in direct bcze-vd-nyin counseling, physical examination and discussion of my assessment and findings andshared decision making with the patient. The remainder of the time not spent face to face was performing one, some or all of the following actions: preparing to see this patient ( eg. Review of tests), ordering medications, tests or procedures ), care coordination, discussion of the plan with otherhealthcare providers, documenting clinical information in Epic well as independently interpreting results and communicating results to patient, family and or caregiver. All time noted occurred on thedate of service. Follow Up: Thank you for allowing me to participate in the care of your patient. Please to not hesitate to contact me with additional questions or concerns. Triston Borjas DO, FAC, RS Cardiac Nnp [facility] Scribed for Triston Borjas DO documented in this encounter Plan of Treatment Upcoming Encounters Date Type Department Care Team (Late st Contact Info) Description 11/12/2024 2:15 PM EDT Office Visit [facility] [address] [facility] [address] [place] [address] Mansoor Silva MD [address] [facility] [address] [place] [address] 01/21/2025 2:30 PM EDT Office Visit [facility] [address] [facility] [address] [place] [address] Monica Quintero, DNP, ETCHER MACHINE [address] [facility] [address] [place] [address] documented as of this encounter Procedures Procedure Name Priority Date/Time Associated Diagnosis Comments SCANNED EKG 01/08/2022 documented in this encounter Results * SCANNED EKG (01/08/2022) Triston Borjas DO ECG ORDERABLES Final Result documented in this encounter Visit Diagnoses Diagnosis PMT (pacemaker-mediated tachycardia)- Primary Other specified cardiac dysrhythmias SSS (sick sinus syndrome) Sinoatrial node dysfunction Ischemic cardiomyopathy Other specified forms of chronic ischemic heart disease documented in this encounter Care Teams Equal Opportunity Assistant Relationship Specialty Start Date End Date Allyson Avery APRN PCP - General Internal Medicine 03/15/21 07/21/23 documented as of this encounter
--- OUTSIDE RECORDS SUMMARY | 2024-07-21 17:15 | XMS_ITS | Encounter Summary ---
[facility] [address] [place] [address] Care Team Providers Care Senior Architect Name Role Phone Allyson Avery YOKO Primary Care Provider + [phone] Encounter Details Date Type Department Care Team (Late st Contact Info) Description 01/21/2023 Telephone [facility] [address] [facility] [address] [place] [address] Monica Quintero, DNP, CREDIT BALANCE SPECIALIST [address] [facility] [address] [place] [address] Social History Tobacco Use Types Packs/Day Years [...] Telephone Encounter - Opal Barber MA - 01/21/2023 10:59 AM EDT Called patient and and spoke with son and gave results. He was understanding and appreciative. ----- Message from Monica Quintero DNP, CREDIT BALANCE SPECIALIST sent at 01/21/2023 9:08 AM EDT ----- Please notify pt folate, vit b12, blood counts, thyroid levels with no concerning findings. documented in this encounter Plan of Treatment Upcoming Encounters Date Type Department Care Team (Late st Contact Info) Description 11/12/2024 2:15 PM EDT Office Visit [facility] [address] [facility] [address] [place] [address] Mansoor Silva MD 1720 [facility] [address] [place] [address] 01/21/2025 2:30 PM EDT Office Visit [facility] [address] [facility] [address] [place] [phone] Monica Quintero DNP, CREDIT BALANCE SPECIALIST [address] [facility] [address] [place] [address] documented as of this encounter Visit Diagnoses Not on filedocumented in this encounter Care Teams Senior Architect Relationship Specialty Start Date End Date Allyson Avery APRN PCP - General Internal Medicine 03/15/21 07/21/23 documented as of this encounter
--- OUTSIDE RECORDS SUMMARY | 2024-07-21 17:15 | XMS_ITS | Encounter Summary ---
[facility] Address [address] [place] [address] Care Team Providers Care Contract Management Specialist Name Role Phone AveryAllyson la YOKO Primary Care Provider + [phone] Encounter Details Date Type Department Care Team (Late st Contact Info) Description 06/16/2021 Telephone [facility] [address] [address] Mansoor Silva MD 1720 [facility] 400 [place] [address] Social History Tobacco Use Types Packs/Day Years [...] encounter Miscellaneous Notes * Telephone Encounter - Abbe Mandel RN - 06/16/2021 3:55 PM EDT The patient's son called to report Mr. Menchaca has been having elevated BP readings and he has alsobeen feeling fatigued. No CP. The family member cannot give any distinct details at this time and the patient is hard of hearing so I cannot call him directly. They will call back on Saturday with the patient to further triage the problem. documented in this encounter Plan of Treatment Upcoming Encounters Date Type Department Care Team (Late st Contact Info) Description 11/12/2024 2:15 PM EDT Office Visit [facility] 1720 [facility] 400 [place] [address] Mansoor Silva MD 1720 [facility] 400 [place] [address] 01/21/2025 2:30 PM EDT Office Visit [facility] [address] [facility] 201 [place] [phone] Monica Quintero, DNP, ANIMAL TRAINER SUPERVISOR [address] [facility] 202 [place] [address] documented as of this encounter Visit Diagnoses Not on filedocumented in this encounter Care Teams Contract Management Specialist Relationship Specialty Start Date End Date Allyson Avery, YOKO PCP - General Internal Medicine 03/15/21 07/21/23 documented as of this encounter
--- OUTSIDE RECORDS SUMMARY | 2024-07-21 17:15 | XMS_ITS | Encounter Summary ---
[facility] Organization [facility] Address [address] [place] [address] Care Team Providers Care Probe Operator Name Role Phone Allyson Avery YOKO Primary Care Provider + [phone] Reason for Visit * Reason Onset Date Comments Med Refill 03/24/2021 Encounter Details Date Type Department Care Team (Late Contact Info) Description 03/24/2021 Refill [facility] [address] [phone] Mansoor Silva MD 1720 [place] [address] Med Refill Social History Tobacco Use Types [...] Description 11/12/2024 2:15 PM EDT Office Visit [facility] 1720 [facility] 400 [place] [phone] Mansoor Silva MD [address] [facility] 400 [place] [address] 01/21/2025 2:30 PM EDT Office Visit [facility] [address] [facility] 201 [place] [address] Monica Quintero, DNP, SUPERVISOR SHUTTLE PREPARATION [address] [facility] 202 [place] [address] documented as of this encounter Visit Diagnoses Not on filedocumented in this encounter Care Teams Probe Operator Relationship Specialty Start Date End Date Allyson Avery APRN PCP - General Internal Medicine 03/15/21 07/21/23 documented as of this encounter
--- OUTSIDE RECORDS SUMMARY | 2024-07-21 17:15 | XMS_ITS | Encounter Summary ---
[facility] [address] [place] [address] Care Team Providers Care Firer Watertender Name Role Phone Allyson Avery YOKO Primary Care Provider + [phone] Reason for Visit * Reason Onset Date Comments Med Refill 07/17/2021 Encounter Details Date Type Department Care Team (Late Contact Info) Description 07/17/2021 Refill [facility] [address] [phone] Mansoor Silva MD 1720 [place] [address] Med Refill Social History Tobacco Use Types [...] Description 11/12/2024 2:15 PM EDT Office Visit [facility] 1720 [facility] 400 [place] [phone] Mansoor Silva MD 1720 [facility] 400 [place] [address] 01/21/2025 2:30 PM EDT Office Visit [facility] [address] [facility] 201 [place] [address] Monica Quintero, DNP, INSIDE SALES MANAGER [address] [facility] 202 [place] [address] documented as of this encounter Visit Diagnoses Not on filedocumented in this encounter Care Teams Firer Watertender Relationship Specialty Start Date End Date Allyson Avery APRN PCP - General Internal Medicine 03/15/21 07/21/23 documented as of this encounter
--- OUTSIDE RECORDS SUMMARY | 2024-07-21 17:15 | XMS_ITS | Encounter Summary ---
[facility] [address] [place] [address] Care Team Providers Care Perfect Bind Machine Operator Name Role Phone Allyson Avery YOKO Primary Care Provider + [phone] Reason for Visit * Reason Onset Date Comments Med Refill 07/18/2022 Encounter Details Date Type Department Care Team (Late Contact Info) Description 07/18/2022 Refill [facility] [address] [phone] Mansoor Silva MD 1720 [place] [address] Med Refill Social History Tobacco Use Types [...] Description 11/12/2024 2:15 PM EDT Office Visit [facility] 1720 [facility] 400 [place] [phone] Mansoor Silva MD 1720 [facility] 400 [place] [address] 01/21/2025 2:30 PM EDT Office Visit [facility] [address] [facility] 201 [place] [phone] Monica Quintero, DNP, DEVELOPMENT SCIENTIST [address] [facility] 202 [place] [address] documented as of this encounter Visit Diagnoses Not on filedocumented in this encounter Care Teams Perfect Bind Machine Operator Relationship Specialty Start Date End Date Allyson Avery APRN PCP - General Internal Medicine 03/15/21 07/21/23 documented as of this encounter
--- OUTSIDE RECORDS SUMMARY | 2024-07-21 17:15 | XMS_ITS | Encounter Summary ---
[facility] [address] [place] [address] Care Team Providers Care Certified Professional Ergonomist Name Role Phone Allyson Avery YOKO Primary Care Provider + [phone] Reason for Visit * Reason Onset Date Comments Med Refill 04/03/2022 Encounter Details Date Type Department Care Team (Late Contact Info) Description 04/03/2022 Refill [facility] [address] [place] [address] Mansoor Silva MD 1720 [facility] 400 [place] [address] Med Refill Social History Tobacco Use Types [...] Visit [facility] [address] [facility] 400 [place] [phone] Mansoor Silva MD 1720 [facility] [address] [place] [address] 01/21/2025 2:30 PM EDT Office Visit [facility] [address] [facility] 201 [place] [address] Monica Quintero, DNP, PRODUCE TEAM LEAD [address] [facility] 202 [place] [address] documented as of this encounter Visit Diagnoses Not on filedocumented in this encounter Care Teams Certified Professional Ergonomist Relationship Specialty Start Date End Date Allyson Avery APRN PCP - General Internal Medicine 03/15/21 07/21/23 documented as of this encounter
--- OUTSIDE RECORDS SUMMARY | 2024-07-21 17:15 | XMS_ITS | Encounter Summary ---
[facility] [address] [place] [address] Care Team Providers Care Model Maker Apprentice Name Role Phone Allyson Avery YOKO Primary Care Provider + [phone] Reason for Visit * Reason Comments Med Refill Encounter Details Date Type Department Care Team (Late st Contact Info) Description 04/11/2023 Refill [facility] [address] [facility] 201 [place] [address] Monica Quintero, DNP, DISPATCHER CHIEF OIL [address] [facility] 202 [place] [address] Mild cognitive impairment Social History [...] encounter Miscellaneous Notes * Telephone Encounter - Soha Albert MA - 04/12/2023 8:51 AM EDT Rx Refill Note Requested Prescriptions Pending Prescriptions Disp Refills memantine (NAMENDA) 5 MG tablet [Pharmacy Med Name: MEMANTINE HCL 5 MG TABLET] 30 tablet 2 Sig: TAKE 1 TABLET BY MOUTH DAILY Last filled: 01/18/2023, 30 with 2 Refills. Last office visit with prescribing clinician: 01/18/2023 Next office visit with prescribing clinician: 07/22/2023 Soha Albert MA 04/12/23, 08:51 EDT documented in this encounter Plan of Treatment Upcoming Encounters Date Type Department Care Team (Late st Contact Info) Description 11/12/2024 2:15 PM EDT Office Visit [facility] 1720 [facility] [address] [place] [phone] Mansoor Silva MD 1720 [facility] 400 [place] [address] 01/21/2025 2:30 PM EDT Office Visit [facility] [address] [facility] [address] [place] [phone] Monica Quintero, SAMUEL, DISPATCHER CHIEF OIL [address] [facility] [address] [place] [address] documented as of this encounter Visit Diagnoses Diagnosis Mild cognitive impairment Mild cognitive impairment, so stated documented in this encounter Care Teams Model Maker Apprentice Relationship Specialty Start Date End Date Allyson Avery APRN PCP - General Internal Medicine 03/15/21 07/21/23 documented as of this encounter
--- OUTSIDE RECORDS SUMMARY | 2024-07-21 17:15 | XMS_ITS | Encounter Summary ---
[facility] Address [address] [place] [address] Care Team Providers Care Assembler Faucets Name Role Phone Allyson Avery YOKO Primary Care Provider + [phone] Reason for Visit * Reason Onset Date Comments Med Refill 08/08/2021 Encounter Details Date Type Department Care Team (Late Contact Info) Description 08/08/2021 Refill [facility] [address] [phone] Mansoor Silva MD 1720 [place] [address] Med Refill Social History Tobacco Use Types [...] Description 11/12/2024 2:15 PM EDT Office Visit [facility] 1720 [facility] 400 [place] [phone] Mansoor Silva MD 1720 [facility] [address] [place] [address] 01/21/2025 2:30 PM EDT Office Visit [facility] [address] [facility] 201 [place] [phone] Monica Quintero, DNP, FIRE WATCHMAN [address] [facility] 202 [place] [address] documented as of this encounter Visit Diagnoses Not on filedocumented in this encounter Care Teams Assembler Faucets Relationship Specialty Start Date End Date Allyson Avery APRN PCP - General Internal Medicine 03/15/21 07/21/23 documented as of this encounter
--- OUTSIDE RECORDS SUMMARY | 2024-07-21 17:15 | XMS_ITS | Encounter Summary ---
[facility] [address] [place] [address] Care Team Providers Care Cutting Machine Fixer Name Role Phone Allyson Avery APRN Primary Care Provider + [phone] Encounter Details Date Type Department Care Team (Late st Contact Info) Description 09/20/2022 Telephone [facility] [address] [phone] Mansoor Silva MD 1720 [facility] 400 [place] [address] Social History Tobacco Use Types Packs/Day Years [...] Telephone Encounter - Addie Lundberg RN - 09/20/2022 8:48 AM EST Pt reporting potential side effect of amio started on 09/11. He takes his amiodarone around 5-6 pm and then at 10 pm his legs start getting clammy and a little tingling in his toes. This improves by morning and he is feeling fine otherwise. Doesn't bother him at this time. He denies chest pain, palpitations, swelling, pain in legs, dizziness, or other cardiac symptoms. Advised to let us know if side effects worsen/don't improve. Pt son verbalized understanding and agreeable to plan documented in this encounter Plan of Treatment Upcoming Encounters Date Type Department Care Team (Late st Contact Info) Description 11/12/2024 2:15 PM EDT Office Visit [facility] 1720 [facility] 400 [place] [phone] Mansoor Silva MD 1720 [facility] 400 [place] [address] 01/21/2025 2:30 PM EDT Office Visit [facility] [address] [facility] 201 [place] [phone] Monica Quintero, DNP, REFUSE DRIVER [address] [facility] 202 [place] [address] documented as of this encounter Visit Diagnoses Not on filedocumented in this encounter Care Teams Cutting Machine Fixer Relationship Specialty Start Date End Date Allyson Avery APRN PCP - General Internal Medicine 03/15/21 07/21/23 documented as of this encounter
--- OUTSIDE RECORDS SUMMARY | 2024-07-21 17:15 | XMS_ITS | Encounter Summary ---
[facility] Organization [facility] Address [address] [place] [address] Care Team Providers Care Educational Administrator Name Role Phone Allyson Avery APRN Primary Care Provider + [phone] Reason for Visit * Reason Comments Memory Loss * Consultation (Routine) - Closed Specialty Diagnoses / Procedures Referred By Venancio t Referred To Contact Neurology Diagnoses Memory loss Terry Quintana MD [address] [place] [address] Phone: tel: fax: [facility] [address] [facility] [address] [place] [address] Phone: tel: fax: Referral ID Status Reason Start Date Expiration Date Visits Re quested Visits Authorized [id number] Closed 07/23/2022 07/23/2023 1 1 Encounter Details Date Type Department Care Team (Late st Contact Info) Description 01/18/2023 11:00 AM EDT Office Visit [facility] [address] [facility] [address] [place] [address] Monica Quintero DNP, ENGINEER THIRD ASSISTANT [address] [facility] [address] [place] [address] Mild cognitive impairment (Primary Dx) Social History Tobacco [...] Sign Reading Time Taken Comments Blood Pressure 140/70 01/18/2023 10:40 AM EDT Pulse 93 01/18/2023 10:40 AM EDT Temperature - - Respiratory Rate - - Oxygen Saturation 99% 01/18/2023 10:40 AM EDT Inhaled Oxygen Concentration - - Weight 74.9 kg (165 lb 3.2 oz) 01/18/2023 10:40 AM EDT Height 177.8 cm (5' 10 ) 01/18/2023 10:40 AM EDT Body Mass Index 23.7 01/18/2023 10:40 AM EDT documented in this encounter Progress Notes * Monica Quintero, SAMUEL, ENGINEER THIRD ASSISTANT - 01/18/2023 11:00 AM EDT Neuro Office Visit Encounter Date: 01/18/2023 Patient Name: Meet Menchaca : 1940 PCP: Allyson Avery APRN Referring: Dr Quintana Chief Complaint: Chief Complaint Patient presents with ??? Memory Loss History of Present Illness: Meet Menchaca is a 82 y.o. male who is here today in Neurology for memory loss. Memory Loss MMSE 27/ Meds:OTC Appetite:good appetite Sleep:sleeps well ADLs:independent Gait/Falls:no falls Language:no xlurred speech Dysphagia:no choking on food Driving:no accidents. 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 Arthritis ??? CAD (coronary artery disease) ??? Diabetes ??? Gout ??? Kidney stones Past Surgical History: Past Surgical History: Procedure Laterality Date ??? FOREARM SURGERY ??? TOOTH EXTRACTION ??? WRIST SURGERY Family History: Family History Problem Relation Age of Onset ??? No Known Problems Sister Social History: Social History Socioeconomic History ??? Marital status: Tobacco Use ??? Smoking status: Never ??? Smokeless tobacco: Never Vaping Use ??? Vaping Use: Never used Substance and Sexual Activity ??? Alcohol use: Not Currently ??? Drug use: Never ??? Sexual activity: Defer Medications: Current Outpatient Medications: ??? allopurinol (ZYLOPRIM) 100 MG tablet, Take 1 tablet by mouth Daily., Disp: , Rfl: ??? aspirin 81 MG EC tablet, Take 1 tablet by mouth Daily., Disp: , Rfl: ??? B Complex Vitamins (VITAMIN B COMPLEX PO), Take by mouth Daily., Disp: , Rfl: ??? carvedilol (COREG) 25 MG tablet, Take 1 tablet by mouth 2 (Two) Times a Day., Disp: 180 tablet,Rfl: 3 ??? clopidogrel (PLAVIX) 75 MG tablet, TAKE ONE TABLET BY MOUTH DAILY, Disp: 90 tablet, Rfl: 3 ??? Docusate Calcium (STOOL SOFTENER PO), Take [...] ??? lisinopril (PRINIVIL,ZESTRIL) 20 MG tablet, Take 1 [...] (Two) Times a Day., Disp: , Rfl: ??? rosuvastatin (CRESTOR) 40 MG tablet, Take 1 tablet by mouth 1 (One) Time Per Week., Disp: 12 tablet, Rfl: 3 ??? Unable to find, 1 each 1 (One) Time. Med Name: cognium I tablet once daily, Disp: , Rfl: ??? memantine (NAMENDA) 5 MG tablet, Take 1 tablet by mouth Daily., Disp: 30 tablet, Rfl: 2 Allergies: No Known Allergies PHQ-9 Total Score: STEADI Fall Risk Assessment was completed, and patient is at LOW risk for falls.Assessment completed on:01/18/2023 Objective Physical Exam: Physical Exam Eyes: Pupils: Pupils are equal, round, and reactive to light. Neurological: Mental Status: He is oriented to person, place, and time. Coordination: Grehbh-Nwxd-Cqaunu Test, Heel to Miranda Test and Romberg [...] Status Oriented to person, place, and time. Registration: recalls 3 of 3 objects. Recall of objects at 5 minutes: 0/3. Follows 3 step commands. Attention: normal. Concentration: normal. Speech: speech is normal Level of consciousness: alert Knowledge: consistent with education. Normal comprehension. Cranial Nerves CN III, IV, Pupils are equal, round, and reactive to light. Right pupil: Accommodation: intact. Left pupil: Accommodation: [...] Right achilles: 2+ Left achilles: 2+ Right premium service representative: 2+ Left premium service representative: 2+ Vital Signs: Vitals: 01/18/23 1040 BP: 140/70 Pulse: 93 SpO2: 99% Weight: 74.9 kg (165 lb 3.2 oz) Height: 177.8 cm (70 ) Body mass index is 23.7 kg/m??. Assessment / Plan Assessment/Plan: Diagnoses and all orders for this visit: 1. Mild cognitive impairment (Primary) - memantine (NAMENDA) 5 MG tablet; Take 1 tablet by mouth Daily. Dispense: 30 tablet; Refill: 2 - CBC Auto Differential; Future - Vitamin B12 & Folate; Future - TSH; Future - T4; Future Patient Education: Reviewed medications, potential side effects [...] Up: Return in about 6 months (around 07/21/2023) for Recheck. During this visit the following were done: Labs Reviewed [] Labs Ordered [x] Radiology Reports Reviewed [] Radiology Ordered [] PCP Records Reviewed [x] Referring Provider Records Reviewed [] ER Records Reviewed [] Hospital Records Reviewed [] History Obtained From Family [x] Radiology Images Reviewed [] Other Reviewed [] Records Requested [] Monica Quintero DNP, APRN documented in this encounter Plan of Treatment Upcoming Encounters Date Type Department Care Team (Late st Contact Info) Description 11/12/2024 2:15 PM EDT Office Visit [facility] [address] [place] [address] Mansoor Silva MD [address] [place] [address] 01/21/2025 2:30 PM EDT Office Visit [facility] NE[facility] [address] [facility] [address] [address] [place] [address] Monica Quintero DNP, APRN [address] [place], [place] [id number] documented as of this encounter Procedures Procedure Name Priority Date/Time Associated Diagnosis Comments SCANNED COGNITIVE ASSESSMENT 01/18/2023 documented in this encounter Results * T4 (01/18/2023 11:40 AM EDT) T4, Total 5.67 4.50 - 11.70 mcg/dL 01/18/2023 6:55 PM EDT [facility] Blood Venipuncture / Unknown 01/18/2023 11:40 AM EDT 01/18/2023 11:40 AM EDT Narrative [facility] - 01/18/2023 6:55 PM EDT Results may be falsely increased if patient taking Biotin. Monica Quintero DNP, APRN LAB BLOOD ORDERABL ES Final Result [facility]
[address] [place] [address], * TSH (01/18/2023 11:40 AM EDT) TSH 1.130 0.270 - 4.200 uIU/mL 01/18/2023 6:55 PM EDT [facility] Blood Venipuncture / Unknown 01/18/2023 11:40 AM EDT 01/18/2023 11:40 AM EDT Monica Quintero DNP, ENGINEER THIRD ASSISTANT LAB BLOOD ORDERABL ES Final Result [facility]
[address] [place] [address], * (ABNORMAL) Vitamin B12 & Folate (01/18/2023 11:40 AM EDT) Pathologist [facility] Folate >20.00 4.78 - 24.20 ng/mL 01/18/2023 7:07 PM EDT [facility] Vitamin B-12 1,561(H) 211 - 946 pg/mL 01/18/2023 7:07 PM EDT [facility] Blood Venipuncture / Unknown 01/18/2023 11:40 AM EDT 01/18/2023 11:40 AM EDT Narrative [facility] - 01/18/2023 7:07 PM EDT Results may be falsely increased if patient taking Biotin. Monica Quintero DNP, YOKO LAB BLOOD ORDERABL ES Final Result [facility]
[address] [place] [address], * (ABNORMAL) CBC Auto Differential (01/18/2023 11:40 AM EDT) WBC 5.24 3.40 - 10.80 10*3/mm3 01/18/2023 6:18 PM EDT [facility] RBC 4.37 4.14 - 5.80 10*6/mm3 01/18/2023 6:18 PM EDT [facility] Hemoglobin 15.0 13.0 - 17.7 g/dL 01/18/2023 6:18 PM EDT [facility] Hematocrit 44.5 37.5 - 51.0 % 01/18/2023 6:18 PM EDT [facility] MCV 101.8(H) 79.0 - 97.0 fL 01/18/2023 6:18 PM EDT [facility] MCH 34.3(H) 26.6 - 33.0 pg 01/18/2023 6:18 PM EDT [facility] MCHC 33.7 31.5 - 35.7 g/dL 01/18/2023 6:18 PM EDT [facility] RDW 11.9(L) 12.3 - 15.4 % 01/18/2023 6:18 PM T [facility] RDW-SD 44.6 37.0 - 54.0 fl 01/18/2023 6:18 PM T [facility] MPV 9.2 6.0 - 12.0 fL 01/18/2023 6:18 PM EDT [facility] Platelets 142 140 - 450 10*3/mm3 01/18/2023 6:18 PM EDT [facility] Neutrophil % 69.3 42.7 - 76.0 % 01/18/2023 6:18 PM EDT [facility] Lymphocyte % 20.0 19.6 - 45.3 % 01/18/2023 6:18 PM EDT [facility] Monocyte % 7.4 5.0 - 12.0 % 01/18/2023 6:18 PM EDT [facility] Eosinophil % 2.1 0.3 - 6.2 % 01/18/2023 6:18 PM EDT [facility] Basophil % 1.0 0.0 - 1.5 % 01/18/2023 6:18 PM EDT [facility] Immature Grans % 0.2 0.0 - 0.5 % 01/18/2023 6:18 PM EDT [facility] Neutrophils, Absolute 3.63 1.70 - 7.00 10*3/mm3 01/18/2023 6:18 PM EDT [facility] Lymphocytes, Absolute 1.05 0.70 - 3.10 10*3/mm3 01/18/2023 6:18 PM EDT [facility] Monocytes, Absolute 0.39 0.10 - 0.90 10*3/mm3 01/18/2023 6:18 PM EDT [facility] Eosinophils, Absolute 0.11 0.00 - 0.40 10*3/mm3 01/18/2023 6:18 PM EDT [facility] Basophils, Absolute 0.05 0.00 - 0.20 10*3/mm3 01/18/2023 6:18 PM EDT [facility] Immature Grans, Absolute 0.01 0.00 - 0.05 10*3/mm3 01/18/2023 6:18 PM EDT [facility] nRBC 0.0 0.0 - 0.2 /100 WBC 01/18/2023 6:18 PM EDT [facility] Blood Venipuncture / Unknown 01/18/2023 11:40 AM EDT 01/18/2023 11:40 AM EDT us Monica Quintero DNP, APRN LAB BLOOD ORDERABL ES Final Result [facility]
[address] [place] [address], * SCANNED COGNITIVE ASSESSMENT (01/18/2023) us Monica Quintero DNP, APRN NEUROLOGY ORDERABL ES Final Result documented in this encounter Visit Diagnoses Diagnosis Mild cognitive impairment- Primary Mild cognitive impairment, so stated documented in this encounter Care Teams Educational Administrator Relationship Specialty Start Date End Date Allyson Avery APRN PCP - General Internal Medicine 03/15/21 07/21/23 documented as of this encounter
--- OUTSIDE RECORDS SUMMARY | 2024-07-21 17:15 | XMS_ITS | Encounter Summary ---
[facility] Organization [facility] Address [address] [place] [address] Care Team Providers Care Auto Air Conditioning Installer Name Role Phone Allyson Avery YOKO Primary Care Provider + [phone] Encounter Details Date Type Department Care Team (Late Contact Info) Description 01/18/2023 11:40 AM EDT Lab [facility] [address] [facility] [address] [place] [address] Mild cognitive impairment Social History Tobacco Use [...] Description 11/12/2024 2:15 PM EDT Office Visit [facility] [address] [facility] [address] [place] [id number] Mansoor Silva MD [address] [facility] [address] [place] [id number] 01/21/2025 2:30 PM EDT Office Visit [facility] [address] [place] [address] Monica Quintero DNP, REPAIR MANAGER [address] [place] [address] documented as of this encounter Procedures Procedure Name Priority Date/Time Associated Diagnosis Comments VITAMIN B12 AND FOLATE Routine 01/18/2023 11:40 AM EDT Mild cognitive impairment CBC WITH AUTO DIFFERENTIAL Routine 01/18/2023 11:40 AM EDT Mild cognitive impairment TSH Routine 01/18/2023 11:40 AM EDT Mild cognitive impairment T4 Routine 01/18/2023 11:40 AM EDT Mild cognitive impairment documented in this encounter Results * T4 (01/18/2023 11:40 AM EDT) T4, Total 5.67 4.50 - 11.70 mcg/dL 01/18/2023 6:55 PM EDT [facility] Blood Venipuncture / Unknown 01/18/2023 11:40 AM EDT 01/18/2023 11:40 AM EDT Narrative [facility] - 01/18/2023 6:55 PM EDT Results may be falsely increased if patient taking Biotin. us Monica Quintero DNP, REPAIR MANAGER LAB BLOOD ORDERABL ES Final Result [facility]
[address] [place] [address], * TSH (01/18/2023 11:40 AM EDT) TSH 1.130 0.270 - 4.200 uIU/mL 01/18/2023 6:55 PM EDT [facility] Blood Venipuncture / Unknown 01/18/2023 11:40 AM EDT 01/18/2023 11:40 AM EDT Monica Quintero DNP, YOKO LAB BLOOD ORDERABL ES Final Result Performing Organization Address [facility]/ZIP Co de Phone Number [facility]
[address] [place] [address], * (ABNORMAL) Vitamin B12 & Folate (01/18/2023 11:40 AM EDT) Folate >20.00 4.78 - 24.20 ng/mL 01/18/2023 7:07 PM EDT [facility] Vitamin B-12 1,561(H) 211 - 946 pg/mL 01/18/2023 7:07 PM EDT [facility] Blood Venipuncture / Unknown 01/18/2023 11:40 AM EDT 01/18/2023 11:40 AM EDT Narrative [facility] - 01/18/2023 7:07 PM EDT Results may be falsely increased if patient taking Biotin. Monica Quintero DNP, YOKO LAB BLOOD ORDERABL ES Final Result Performing Organization Address City/[facility] Co de Phone Number [facility]
[address] [place] [address], * (ABNORMAL) CBC Auto Differential (01/18/2023 11:40 AM EDT) WBC 5.24 3.40 - 10.80 10*3/mm3 01/18/2023 6:18 PM EDT [facility] RBC 4.37 4.14 - 5.80 10*6/mm3 01/18/2023 6:18 PM EDT [facility] Hemoglobin 15.0 13.0 - 17.7 g/dL 01/18/2023 6:18 PM EDT [facility] Hematocrit 44.5 37.5 - 51.0 % 01/18/2023 6:18 PM EDT [facility] MCV 101.8(H) 79.0 - 97.0 fL 01/18/2023 6:18 PM EDT [facility] MCH 34.3(H) 26.6 - 33.0 pg 01/18/2023 6:18 PM EDT [facility] MCHC 33.7 31.5 - 35.7 g/dL 01/18/2023 6:18 PM [facility] RDW 11.9(L) 12.3 - 15.4 % 01/18/2023 6:18 PM [facility] RDW-SD 44.6 37.0 - 54.0 fl 01/18/2023 6:18 PM [facility] MPV 9.2 6.0 - 12.0 fL 01/18/2023 6:18 PM EDT [facility] Platelets 142 140 - 450 10*3/mm3 01/18/2023 6:18 PM [facility] Neutrophil % 69.3 42.7 - 76.0 % 01/18/2023 6:18 PM EDT [facility] Lymphocyte % 20.0 19.6 - 45.3 % 01/18/2023 6:18 PM [facility] Monocyte % 7.4 5.0 - 12.0 % 01/18/2023 6:18 PM EDT [facility] Eosinophil % 2.1 0.3 - 6.2 % 01/18/2023 6:18 PM EDT [facility] Basophil % 1.0 0.0 - 1.5 % 01/18/2023 6:18 PM EDT [facility] Immature Grans % 0.2 0.0 - 0.5 % 01/18/2023 6:18 PM EDT [facility] Neutrophils, Absolute 3.63 1.70 - 7.00 10*3/mm3 01/18/2023 6:18 PM EDT [facility] Lymphocytes, Absolute 1.05 0.70 - 3.10 10*3/mm3 01/18/2023 6:18 PM EDT [facility] Monocytes, Absolute 0.39 0.10 - 0.90 10*3/mm3 01/18/2023 6:18 PM EDT [facility] Eosinophils, Absolute 0.11 0.00 - 0.40 10*3/mm3 01/18/2023 6:18 PM EDT [facility] Basophils, Absolute 0.05 0.00 - 0.20 10*3/mm3 01/18/2023 6:18 PM EDT [facility] Immature Grans, Absolute 0.01 0.00 - 0.05 10*3/mm3 01/18/2023 6:18 PM EDT [facility] nRBC 0.0 0.0 - 0.2 /100 WBC 01/18/2023 6:18 PM EDT [facility] Blood Venipuncture / Unknown 01/18/2023 11:40 AM EDT 01/18/2023 11:40 AM EDT Monica Quintero DNP, REPAIR MANAGER LAB BLOOD ORDERABL ES Final Result [facility]
[address] [place] [address], documented in this encounter Visit Diagnoses Diagnosis Mild cognitive impairment Mild cognitive impairment, so stated documented in this encounter Care Teams Auto Air Conditioning Installer Relationship Specialty Start Date End Date Allyson Avery APRN PCP - General Internal Medicine 03/15/21 07/21/23 documented as of this encounter
--- OUTSIDE RECORDS SUMMARY | 2024-07-21 17:16 | XMS_ITS | Encounter Summary ---
Author Organization [facility] Address [address] [place] [address] Care Team Providers Care Industrial Services Worker Name Role Phone Allyson Avery APRN Primary Care Provider + [phone] Encounter Details Date Type Department Care Team (Late st Contact Info) Description 03/15/2020 Transcribed Document [facility] [address] [place] [address] ProviderTatiana MD [address] [place] [address] Social History Tobacco Use Types Packs/Day Years Used Date Smoking Tobacco: Never Assessed Sex and Gender Information Value Date Recorded Sex Assigned at Not on file Legal Sex Male 5:33 PM CDT Gender Identity Not on file Sexual Orientation Not on file documented as of this encounter Miscellaneous Notes * Cerner Conversion Note - Historical ProviderMD - 03/15/2020 2:55 PM CDT Attempt to Treat, PT Entered On: 03/15/2020 14:56 EDT Performed On: 03/15/2020 14:55 EDT by JAKE HOLLINGSWORTH PT Attempt to Treat Unable to Treat Due To : Patient Unavailable Inability to Treat Comment : 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 PT will follow up as time permits. JAKE HOLLINGSWORTH PT - 03/15/2020 14:55 EDT Electronically signed by Aruna Ortiz Conversion Hazardous Materials Waste Technician Cerner at 12/20/2022 12:16 PM CDT documented in this encounter Plan of Treatment Not on file documented as of this encounter Visit Diagnoses Not on filedocumented in this encounter Care Teams Industrial Services Worker Relationship Specialty Start Date End Date Allyson Avery APRN [address] [phone] PCP - General Nurse Practitioner 02/06/23 documented as of this encounter
--- OUTSIDE RECORDS SUMMARY | 2024-07-21 17:16 | XMS_ITS | Encounter Summary ---
Author Organization [facility] Address [address] [place] [address] Care Team Providers Care Inker And Opaquer Name Role Phone AveryAllyson la YOKO Primary Care Provider + [phone] Encounter Details Date Type Department Care Team (Late st Contact Info) Description 03/15/2020 Transcribed Document [facility] [address] [place] [address] ProviderTatiana MD [address] [place] [id number] Social History Tobacco Use Types Packs/Day Years Used Date Smoking Tobacco: Never Assessed Sex and Gender Information Value Date Recorded Sex Assigned at Not on file Legal Sex Male 5:33 PM CDT Gender Identity Not on file Sexual Orientation Not on file documented as of this encounter Miscellaneous Notes * Cerner Conversion Note - Tatiana ProviderMD - 03/15/2020 3:28 PM CDT On Going Discharge Planning Entered On: 03/15/2020 15:28 EDT Performed On: 03/15/2020 15:28 EDT by CINDY GOMES RN-Pilot ManagerClamper Progress Note Discharge Arrangements : Patient Post-Acute Information Patient Name: PAT MENCHACA Gender: Male : [birth year] Age: 79 Years No Post-Acute Placement(s) Listed No Post-Acute Service(s) Listed No Curaspan Referral(s) Listed Discharge Options Discussed with Patient : Home Health Is the Patient Meeting Medical Necessity : Yes Physician Agreeable to Move Forward with D/C Plan? : Yes Did you Attend Multidisciplinary Rounds? 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 Plan [facility] today. 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 His daughter Jesika is also involved in his care [phone]. Patient's PCP is MARCO Duncan. 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 No prior rehab stay, home health, oxygen or DME. Patient's family will transport on discharge. DCP: Anticipate patient will discharge home with family. CM will follow for any needed referrals. CINDY GOMES RN-Pilot Manager - 03/15/2020 15:28 EDT documented in this encounter Plan of Treatment Not on file documented as of this encounter Visit Diagnoses Not on filedocumented in this encounter Care Teams Inker And Opaquer Relationship Specialty Start Date End Date Allyson Avery APRN [address] [phone] PCP - General Nurse Practitioner 02/06/23 documented as of this encounter
--- OUTSIDE RECORDS SUMMARY | 2024-07-21 17:16 | XMS_ITS | Encounter Summary ---
Author Organization [facility] In [facility] Address [address] [place] [address] Care Team Providers Care Choir Accompanist Name Role Phone Allyson Avery APRN Primary Care Provider [phone] Encounter Details Date Type Department Care Team (Latest Contact Info) Description 02/06/2023 Travel Social History Tobacco Use Types Packs/Day Years Used Date Smoking Tobacco: Never Assessed Sex and Gender Information Value Date Recorded Sex Assigned at Not on file Legal Sex Male 5:33 PM CDT Gender Identity Not on file Sexual Orientation Not on file COVID-19 Exposure Response Date Recorded In the last 10 days, have yo u been in contact with someone who was confirmed or suspected to have Coronavirus/COVID-19? No / Unsure 02/06/2023 2:02 PM EDT documented as of this encounter Plan of Treatment Not on file documented as of this encounter Visit Diagnoses Not on filedocumented in this encounter Care Teams Choir Accompanist Relationship Specialty Start Date End Date Allyson Avery APRN [address] [address] PCP - General Nurse Practitioner 02/06/23 documented as of this encounter
--- OUTSIDE RECORDS SUMMARY | 2024-07-21 17:16 | XMS_ITS | Encounter Summary ---
Author Organization [facility] In iatives Address [address] [place] [address] Care Team Providers Care Public Affairs Officer Name Role Phone Avery, Allyson YOKO Primary Care Provider + [phone] Encounter Details Date Type Department Care Team (Late st Contact Info) Description 03/16/2020 Transcribed Document [facility] [place] Family Medicine [address] [place] [address] ProviderTatiana MD [address] [place] [address] [phone] Social History Tobacco Use Types Packs/Day Years Used Date Smoking Tobacco: Never Assessed Sex and Gender Information Value Date Recorded Sex Assigned at Not on file Legal Sex Male 5:33 PM CDT Gender Identity Not on file Sexual Orientation Not on file documented as of this encounter Miscellaneous Notes * Cerner Conversion Note - Tatiana ProviderMD - 03/16/2020 1:14 PM CDT Evaluation, Occupational Therapy Entered On: 03/17/2020 13:33 EDT Performed On: 03/17/2020 10:45 EDT by EUGENE LYNCH, OTR/L General Information, OT Visit Type, OT : Initial evaluation Patient Orders : Order Date Order Ordering 03/15/2020 08:50 Occupational Therapy Evaluation and Treatme Ordered By: YESSENIA SHELL MD-INT 03/16/2020 13:14 Occupational Therapy Evaluation and Treatme Ordered By: YESSENIA SHELL MD-INT Active Diagnoses : 03/13/2020 12:00 HTN - Hypertension 03/13/2020 12:00 Other specified abnormal findings of blood chemistry 03/13/2020 12:00 Palpitations 03/13/2020 12:00 Syncope and collapse 03/13/2020 12:00 Syncope/Near syncope Admission Date : 03/14/2020 08:12 Personal Devices : Personal Devices Glasses Assistive Devices : Assistive Devices No Devices Recorded General Information Comment, OT : 79 yo M admitted to [facility] 03/14 secondary to CAD, syncope, and VTACH. Upgrade to ICD from [facility]. EUGENE LYNCH OTR/Belia - 03/17/2020 13:23 EDT General Status Patient Received Status : Supine in bed Treatment Start Time : 03/17/2020 10:26 EDT Patient Left Status : Sitting edge of bed, RN/PCT informed, Family/Visitors at bedside, All needs met and within reach RN/PCT Informed Comment : KHRIS Soliz Treatment End Time : 03/17/2020 10:45 EDT Treatment Time : 19 Minute(s) EUGENE LYNCH OTR/Belia - 03/17/2020 13:23 EDT History and Environment, OT Living Situation, Therapy : Home Patient Lives With : Adult Child/Children Persons Assisting Patient at Home : Child/Children, Other: son lives with pt and daughters also Asst with care as needed. Professional Skilled Services : None Persons Providing Information : Patient, Child/Children, Other: [facility] Home Equipment, Therapy : None Home Setup : Two story Bedroom Location : Main level Bathroom #1 Location : Main level Bathroom #1 Features : Toilet, Tub/Shower Stairs : No EUGENE LYNCH OTR/Belia - 03/17/2020 13:23 EDT Prior LOF Bathing, OT : Independent Prior LOF Bed Mobility : Independent Prior LOF Upper Body Dressing, OT : Independent Prior LOF Lower Body Dressing, OT : Independent Prior LOF Toileting : Independent Prior LOF Transfer : Independent Prior LOF Grooming, OT : Independent Prior LOF for IADLs, OT : Independent EUGENE LYNCH OTR/Belia - 03/17/2020 13:23 EDT Upper Extremity Right UE Active ROM : WFL Right UE Strength : WFL Upper Extremity Comment : RUE ROM and MMT WFL, LUE not assessed secondary to recent ICD placement (patient in sling for support) EUGENE LYNCH OTR/Belia - 03/17/2020 13:23 EDT Self Care/Home Management, OT Self Feeding Assist Level, OT : Independent, complete Grooming Assist Level, OT : Independent, complete Bathing Assist Level, OT : Supervision or set-up Upper Body Dressing Assist Level, OT : Assist, minimal Lower Body Dressing Assist Level, OT : Assist, minimal Toileting Assist Level : Independent, complete Toilet Transfer Assist Level : Supervision or set-up EUGENE LYNCH OTR/L 03/17/2020 13:23 EDT Mobility Device/Prosthesis/Wt Bearing Weight Bearing Status Maintained : Yes EUGENE LYNCH OTR/L - 03/17/2020 13:23 EDT Functional Mobility Mobility Grid Supine to Sit : Rehab Complete independence Sit to Stand : Supervision/set-up Stand to Sit : Supervision/set-up EUGENE LYNCH OTR/L 03/17/2020 13:23 EDT Sit to Stand Device : Belt, gait Stand to Sit Device : Belt, gait EUGENE LNYCH OTR/L - 03/17/2020 13:23 EDT Cognition Assessment, OT Orientation : Oriented x 4 Cognition Assessment, OT : Intact Comprehension Assessment, OT : Intact EUGENE LYNCH OTR/L - 03/17/2020 13:23 EDT Education OT Occupational Therapy Education Grid Functional Mobility Training : Returns demonstration Role of Occupational Therapy : Verbalizes understanding EUGENE LYNCH OTR/L 03/17/2020 13:23 EDT Teaching/Learning Assessment Barriers To Learning : None evident Individuals Taught : Patient Readiness to Learn : Cooperative Readiness to Learn : Explanation Learning Style Preferences Patient : None Learning Style Preferences Family : None EUGENE LYNCH OTR/L - 03/17/2020 13:23 EDT Indication Assessment, OT Occupational Therapy Indicated : No Occupational Therapy Not Indicated : No skilled services indicated, Other: Patient with discharge orders home 03/17 EUGENE LYNCH OTR/Belia - 03/17/2020 13:23 EDT Plan of Care, OT OT Tx Plan/Goals Established w Patient : No Reason OT Treatment/Plan Not Established : Patient with discharge orders home 03/17 LOLY LYNCHLLE H, OTR/L - 03/17/2020 13:23 EDT Treatment Note Subjective Comment : Patient agreeable to OT evaluation. Patient's Response to Treatment : Tolerated well. Additional Objective Information : Patient encountered supine in bed, son at bedside. Patient transferred supine to EOB independently, donned pants with minimal assist seated EOB/standing with supervision. Patient walked without AD ~400 feet in hallway without LOB and supervision. Declined participation in further ADL tasks. Patient/son report son lives with patient and is available to assist 24 hours/day at discharge. Patient left seated EOB with call light/phone within reach, all needs met. Assessment : No OT concerns at this time. Plan for Treatment : Defer OT. SHABANAKENZIE WATERSEUGENEEMMETT Garner OTAmber/Belia - 03/17/2020 13:23 EDT Pain Assessment Pain Scaled Used : 0-10 Pain scale Pain Score Pre-Intervention : 0 EUGENE LYNCH OTR/Belia - 03/17/2020 13:23 EDT Image 1 - Images currently included in the form version of this document have not been included in the text rendition version of the form. Anticipated Discharge Needs, OT/PT Anticipated Discharge to : Home, with family care Recommend Continued Therapy at Discharge : No EUGENE LYNCH OTR/Belia - 03/17/2020 13:[address] [facility] OT Charges OT Eval Low Complexity : 1 EUGENE LYNCH OTAmber/Belia - 03/17/2020 13:23 EDT documented in this encounter Plan of Treatment Not on file documented as of this encounter Visit Diagnoses Not on filedocumented in this encounter Care Teams Public Affairs Officer Relationship Specialty Start Date End Date Allyson Avery APRN [address] [place] [phone] PCP - General Nurse Practitioner 02/06/23 documented as of this encounter
--- OUTSIDE RECORDS SUMMARY | 2024-07-21 17:16 | XMS_ITS | Encounter Summary ---
Author Organization [facility] In iatives Address [address] [place] [address] Care Team Providers Care Correctional Officer Name Role Phone Bennie Allyson YOKO Primary Care Provider + [phone] Encounter Details Date Type Department Care Team (Late st Contact Info) Description 03/13/2020 Transcribed Document [facility] Family Medicine [address] [place] [address] ProviderTatiana MD [address] [place] [address] [phone] Social History Tobacco Use Types Packs/Day Years Used Date Smoking Tobacco: Never Assessed Sex and Gender Information Value Date Recorded Sex Assigned at Not on file Legal Sex Male 5:33 PM CDT Gender Identity Not on file Sexual Orientation Not on file documented as of this encounter Miscellaneous Notes * Cerner Conversion Note - Tatiana ProviderMD - 03/13/2020 9:29 PM CDT ED Assessment Entered On: 03/13/2020 21:53 EDT Performed On: 03/13/2020 21:52 EDT by Kimi Mason RN ED Quick Look Assessment Level of Consciousness : Alert Affect/Behavior : Calm Orientation : Oriented x 4 Kimi Mason RN - 03/13/2020 21:52 EDT ED General-Functional Assess Information Obtained From : Patient, Daughter Preferred Communication Mode : Verbal Communication Barrier : None, Other: hearing Primary Language : Serbian Any Spiritual/Cultural Needs or Requests : No Currently in Unsafe Situation : No Kimi Mason RN - 03/13/2020 21:52 EDT Social Habits Smoking Status : Never (less than 100 in lifetime; none in last 30 days) Smokeless Tobacco Status : Never Desires Tobacco Cessation Calc : 0 Kimi Mason RN - 03/13/2020 21:52 EDT Social History (As Of: 03/13/2020 21:53:47 EDT) Tobacco: Use in Last 12 Months: No. Smoking Status Never smoker. Second Hand Smoke Exposure: No. Tobacco Use/Smoking within Last 30 Days No. (Last Updated: 12/28/2015 05:03:08 EDT by Sara Mcdonald Rn) Never (less than 100 in lifetime) Smoking Status. Never Smokeless Tobacco Status. None Smokeless Tobacco Use History. (Last Updated: 07/01/2019 03:33:05 EDT by Sixto Shelton RN) Alcohol: Alcohol Use History No. (Last Updated: 12/28/2015 04:57:31 EDT by Sara Mcdonald, Silvio) Substance Abuse: Drug Use Hx: No. Use in Last 12 Months: No. (Last Updated: 12/28/2015 05:03:24 EDT by Sara Mcdonald, Silvio) Nutrition/Health: Type of diet: several teeth removed in the last 6 months and having difficulty chewing. Regular, Caffeine intake amount: none. (Last Updated: 12/28/2015 05:02:33 EDT by Sara Mcdonald Rn) Exercise: Exercise duration: 0. (Last Updated: 12/28/2015 05:00:33 EDT by Sara Mcdonald, Silvio) Home/Environment: Lives with Spouse. Living situation: Home/Independent. Alcohol abuse in household: No. Substance abuse in household: No. Smoker in household: No. Injuries/Abuse/Neglect in household: No. Feels unsafe at home: No. Safe place to go: Yes. Agency(s)/Others notified: No. Family/Friends available for support: Yes. Concern for family members at home: No. Major illness in household: Yes. Financial concerns: No. 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 Highest education level: High school. Operates hazardous equipment: Yes. Workplace hazards: Heavy lifting/twisting. (Last Updated: 12/28/2015 04:59:07 EDT by Sara Mcdonald, Silvio) Sexual: Sexually active: No. (Last Updated: 12/28/2015 05:03:16 EDT by Sara Mcdonald, Silvio) Cardiovascular ASMT, ED Cardiovascular Assessment WDL : WD with exceptions Cardiovascular Symptoms : Other: near syncope Chest Pain : No Kimi Mason RN - 03/13/2020 21:52 EDT Respiratory Respiratory Assessment WDL : [facility] Kimi Mason RN - 03/13/2020 21:52 EDT Gastrointestinal ED Gastrointestinal Assessment WDL : [facility] Kimi Mason RN - 03/13/2020 21:52 EDT Genitourinary Assessment, ED Genitourinary Assessment WDL : [facility] Kimi Mason RN - 03/13/2020 21:52 EDT Neurologic ASMT, ED Neurologic Assessment WDL : [facility] with exceptions Neurological Symptoms : Dizziness Kimi Mason RN - 03/13/2020 21:52 EDT documented in this encounter Plan of Treatment Not on file documented as of this encounter Visit Diagnoses Not on filedocumented in this encounter Care Teams Correctional Officer Relationship Specialty Start Date End Date Allyson Avery APRN [address] [phone] PCP - General Nurse Practitioner 02/06/23 documented as of this encounter
--- OUTSIDE RECORDS SUMMARY | 2024-07-21 17:16 | XMS_ITS | Encounter Summary ---
Author Organization [facility] In iatives Address [address] [place] [address] Care Team Providers Care Lacemaker Name Role Phone Allyson Avery APRN Primary Care Provider + [phone] Encounter Details Date Type Department Care Team (Late st Contact Info) Description 03/17/2020 Transcribed Document [facility] Family Medicine [address] [place] [address] ProviderTatiana MD [address] [place] [id number] Social History Tobacco Use Types Packs/Day Years Used Date Smoking Tobacco: Never Assessed Sex and Gender Information Value Date Recorded Sex Assigned at Not on file Legal Sex Male 5:33 PM CDT Gender Identity Not on file Sexual Orientation Not on file documented as of this encounter Miscellaneous Notes * Cerner Conversion Note - Tatiana ProviderMD - 03/17/2020 7:29 AM CDT Patient: PAT MENCHACA Age: 79 years Sex: Male : 1940 Associated Diagnoses: None Author: JOSHUA CHAPMAN APRN [facility] C[facility] PROGRESS NOTE: DIAGNOSIS: 1. VT with presyncope/syncope 2. CAD SUBJECTIVE: no complaints Vitals Signs (last 24 hrs) Last Charted Minimum Maximum Temp 97 (MAR 17 05:34) 97 (MAR 17 05:34) 97.5 (MAR 16 18:00) Mon HR 75 (MAR 17 05:34) 73 (MAR 16 11:30) 76 (MAR 16 14:00) Resp Rate 16 (MAR 17 05:34) 14 (MAR 16 11:30) 18 (MAR 16 11:16) SBP 108 (MAR 17 05:34) 94 (MAR 16 17:00) 127 (MAR 16 15:00) DBP 68 (MAR 17 05:34) L 26 (MAR 16 18:00) 73 (MAR 16 15:00) MAP 27 (MAR 16 18:00) 27 (MAR 16 18:00) 88 (MAR 16 15:00) SpO2 95 (MAR 17 05:34) L 93 (MAR 16 11:16) 100 (MAR 16 16:00) Clinical Weight CLINICALWEIGHT: 78.21 kg (03/14/20 08:11:00) Routine Weight Calculation: 78.69 kg (03/15/20 04:00:00) Routine Weight Entry Format: [place] (03/15/20 04:00:00) Routine Weight Source: Bed scale (03/15/20 04:00:00) Routine Weight, Ounces: 2 oz (03/15/20 04:00:00) Routine Weight, Pounds: 173 lb (03/15/20 04:00:00) [place] Body Weight: 77 kg (03/14/20 08:11:00) Intake & Output Totals Last 24 Hours (7a-7a) Intake (2 Events) Medications (12 mL) Output (0 Events) No output events found in the last 24 hours. Input Total: 12 mL Output Total: 0 mL Balance: 12 mL TELE: paced Blood Gases (Current Encounter/Past 24 Hours) No Blood Gas Results Found (Past 24 Hours) Labs (Last four charted values) WBC 4.1 (MAR 15) 4.2 (MAR 14) 4.8 (MAR 13) HB L 13.3 (MAR 15) 13.7 (MAR 14) 14.0 (MAR 13) HCT L 39.3 (MAR 15) 40.6 (MAR 14) 41.6 (MAR 13) Plt L 149 (MAR 15) 166 (MAR 14) 169 (MAR 13) Na 139 (MAR 16) 139 (MAR 14) 138 (MAR 14) 140 (MAR 13) K 3.9 (MAR 16) 4.1 (MAR 15) 4.5 (MAR 14) 5.0 (MAR 13) Cl 106 (MAR 16) 105 (MAR 15) 104 (MAR 14) 104 (MAR 13) CO2 28 (MAR 16) 28 (MAR 15) 29 (MAR 14) 30 (MAR 13) BUN 20 (MAR 16) H 24 (MAR 14) H 23 (MAR 14) H 24 (MAR 13) Cr 0.90 (MAR 16) 0.90 (MAR 15) 1.00 (MAR 14) 1.20 (MAR 13) Glu R H 153 (MAR 16) H 133 (MAR 15) H 119 (MAR 14) H 129 (MAR 13) Ca 8.9 (MAR 16) 9.1 (MAR 15) 8.8 (MAR 14) 9.4 (MAR 13) Lactic 1.5 (MAR 13) AST 31 (MAR 14) H 42 (MAR 13) ALT 28 (MAR 14) 34 (MAR 13) ALK P 58 (MAR 14) 78 (MAR 13) T Bili 0.7 (MAR 14) 0.6 (MAR 13) PTN 7.2 (MAR 14) 7.6 (MAR 13) ALB 3.7 (MAR 14) 3.8 (MAR 13) Troponin H 0.119 (MAR 16) H 0.101 (MAR 15) H 0.088 (MAR 14) H 0.078 (MAR 14) EXAM: Alert & Oriented, No apparent distress. HEAD&NECK: No JVD, No carotid bruit CORONARY: RRR, S1/S2, No murmurs LUNGS: CTA/B, No rhonchi, No wheeze ABDOMEN: Soft, Non-tender, Positive Bowel sounds EXTREMITIES: No edema, No cyanosis, Pedal pulses palpable, LSC free of hematoma IMPRESSION/PLAN: VT with associated presyncope/Syncope case discussed with Dr. Pérez and Dr Feldman at length plan for ischemic workup today with upgrade to ICD in am CAD with prior CABG echocardiogram revealed new wall motion abnormalities for [facility] today SSS s/p dual chamber PPM HTN HLP Ok to discharge from a cardiac perspective FU one week in clinic for wound check documented in this encounter Plan of Treatment Not on file documented as of this encounter Visit Diagnoses Not on filedocumented in this encounter Care Teams Lacemaker Relationship Specialty Start Date End Date Allyson Avery, PLATE GLASS INSTALLER [address] [place] [phone] PCP - General Nurse Practitioner 02/06/23 documented as of this encounter
--- OUTSIDE RECORDS SUMMARY | 2024-07-21 17:16 | XMS_ITS | Encounter Summary ---
Author Organization [facility] In iatives Address [address] [place] [address] Care Team Providers Care Train Operations Supervisor Name Role Phone Allyson Avery APRN Primary Care Provider + [phone] Encounter Details Date Type Department Care Team (Late st Contact Info) Description 03/14/2020 Transcribed Document [facility] [place] [address] [place] [address] ProviderTatiana MD [address] [place] [address] Social History Tobacco Use Types Packs/Day Years Used Date Smoking Tobacco: Never Assessed Sex and Gender Information Value Date Recorded Sex Assigned at Not on file Legal Sex Male 5:33 PM CDT Gender Identity Not on file Sexual Orientation Not on file documented as of this encounter Miscellaneous Notes * Cerner Conversion Note - Historical ProviderMD - 03/14/2020 12:07 AM CDT ED Event Note Entered On: 03/14/2020 0:07 EDT Performed On: 03/14/2020 0:07 EDT by Kimi Mason, CEILING CLEANER Event Note ED Description of Event : pt given dinner tray, pt changed onto hospital bed Kimi Mason RN - 03/14/2020 0:07 EDT Electronically signed by Aruna Ortiz Conversion Event Specialist Product Demonstrator Cerbessie at 12/20/2022 12:31 PM CDT documented in this encounter Plan of Treatment Not on file documented as of this encounter Visit Diagnoses Not on filedocumented in this encounter Care Teams Train Operations Supervisor Relationship Specialty Start Date End Date Allyson Avery APRN [address] [place] [address] [place] [phone] PCP - General Nurse Practitioner 02/06/23 documented as of this encounter
--- OUTSIDE RECORDS SUMMARY | 2024-07-21 17:16 | XMS_ITS | Encounter Summary ---
Author Organization [facility] Address [address] [place] [address] Care Team Providers Care Bus Info Consultant Name Role Phone Karlene Avery APRN Primary Care Provider + [phone] Encounter Details Date Type Department Care Team (Late st Contact Info) Description 03/23/2020 Transcribed Document [facility] Family Medicine [address] [place] [id number] ProviderTatiana MD [address] [place] [id number] Social History Tobacco Use Types Packs/Day Years Used Date Smoking Tobacco: Never Assessed Sex and Gender Information Value Date Recorded Sex Assigned at Not on file Legal Sex Male 5:33 PM CDT Gender Identity Not on file Sexual Orientation Not on file documented as of this encounter Miscellaneous Notes * Cerner Conversion Note - Tatiana Polanco MD - 03/23/2020 6:31 PM CDT [facility] [place] [address] PAT MENCHACA :1940 Visit Time:03/23/2020 Your Visit Summary Your Care Team Admitting Physician - DUANE JIMENEZ MD-CAR Attending Physician - DUANE JIMENEZ MD-CAR Primary Care Physician - KARLENE AVERY APRN-[facility] Referring Physician - DUANE JIMENEZ MD-CAR Your Diagnosis Other mechanical complication of cardiac electrode, initial encounter, Other mechanical complication of cardiac electrode, initial encounter These Are Your Goals remain free of falls for duration of admission Discharge Vitals Temperature 36.3 ??C Heart Rate (Monitored) 70 Blood Pressure 151/82 What to do next Instructions From Your Care Team Diet after Discharge: Resume usual diet as tolerated Activity after Discharge: Rest and relax today, No strenuous activity, No lifting/pushing/pulling more than 10 pounds for 1 week., _ Driving Restrictions: No driving for 24 hours. Showering/Bathing: No showering, _ Medications: No changes to your current home medications., _, _ Dressing Instructions: Leave your dressing in place keeping the site clean and dry., _, _ Follow-Up Appointments Follow Up with DUANE JIMENEZ When In 12 days 04/04/2020 EDT Where: [address] [place] [address] [facility] [place] [id number] Business (1) Medications What How Much When Instructions Next Dose carvedilol (carvedilol 25 mg oral tablet) 1 Tablet(s) Oral Two Times A Day lisinopril (lisinopril 20 mg oral tablet) Oral Every Day acetaminophen (Tylenol 325 mg oral tablet) 2 Tablet(s) Oral Every 4 Hours as needed for Pain (Mild 1-3) allopurinol (allopurinol 100 mg oral tablet) 1 Tablet(s) Oral Every Day aspirin (Aspirin Low Dose 81 mg oral tablet) 1 Tablet(s) Oral Every Day chondroitin/ glucosamine/ methylsulfonylmethane (Osteo Bi-Flex Plus MSM) 1 Tablet(s) Oral Two Times A Day clopidogrel (Plavix) 75 Milligram(s) Oral Every Day colesevelam (Welchol 625 mg oral tablet) 1 Tablet(s) Oral Every Morning colesevelam (Welchol 625 mg oral tablet) 2 Tablet(s) Oral At Bedtime docusate (Colace 100 mg oral capsule) 4 Capsule(s) Oral At Bedtime esomeprazole (NexIUM 40 mg oral delayed release capsule) 1 Capsule(s) Oral Every Day levothyroxine (levothyroxine 75 mcg (0.075 mg) oral tablet) 1 Tablet(s) Oral Every Day multivitamin (Metanx oral capsule) 1 Capsule(s) Oral Two Times A Day multivitamin (Multiple Vitamins oral tablet) 1 Tablet(s) Oral Every Day Non Formulary (Cebria Memory Support Capsule) 1 Capsule(s) Oral Every Day omega-3 polyunsaturated fatty acids (Fish Oil 1200 mg oral capsule) 2 Capsule(s) Oral Two Times A Day ranolazine (Ranexa 500 mg oral tablet, extended release) 1 Tablet(s) Oral Every Day rosuvastatin (Crestor 20 mg oral tablet) 2 Tablet(s) Oral Saturday ubiquinone (Coenzyme Q10 200 mg oral capsule) 2 Capsule(s) Oral Every Day Take your medications faithfully. Do NOT skip medication. Do NOT stop taking medications without the direction of a physician. Carry a list of your medications with you at all times, and take this medication list with you to your first follow up visit. Report any side effects. Avoid herbal remedies unless discussed with your physician. As part of your treatment plan, your physician may have prescribed a limited course of a controlled substance. This medication may be given to help people with moderate or severe pain or for other medical conditions, but there are risks involved with treatment. Common side effects may include nausea, constipation, drowsiness, sweating, itching, dry mouth, and rash. More serious side effects may include cognitive and motor impairment, like problems with thinking, concentrating, alertness, and movement (e.g. slowed reflexes), and driving and operating heavy machinery can be dangerous. It is important for you to talk to your physician if you have these side effects or questions. These controlled substances can produce physical dependence and be habit-forming if taken for an extended period of time, which means that the body has gotten used to them and may experience withdrawal symptoms if they are abruptly stopped. Withdrawal symptoms can include runny nose, sweating, goose bumps, diarrhea, abdominal cramping, rapid heartbeat, difficulty sleeping, and nervousness. Please dispose of unused and medications per your retail pharmacy guidance. Allergies No Known Allergies Immunizations This Visit No Immunizations Found Education Materials Moderate Conscious Sedation, Adult, Care After These instructions provide you with information about caring for yourself after your procedure. Your health care provider may also give you more specific instructions. Your treatment has been planned according to current medical practices, but problems sometimes occur. Call your health care provider if you have any problems or questions after your procedure. What can I expect after the procedure? After your procedure, it is common: ??? To feel sleepy for several hours. ??? To feel clumsy and have poor balance for several hours. ??? To have poor judgment for several hours. ??? To vomit if you eat too soon. Follow these instructions at home: For at least 24 hours after the procedure: ??? Do not: ? Participate in activities where you could fall or become injured. ? Drive. ? Use heavy machinery. ? Drink alcohol. ? Take sleeping pills or medicines that cause drowsiness. ? Make important decisions or sign legal documents. ? Take care of children on your own. ??? Rest. Eating and drinking ??? Follow the diet recommended by your health care provider. ??? If you vomit: ? Drink water, juice, or soup when you can drink without vomiting. ? Make sure you have little or no nausea before eating solid foods. General instructions ??? Have a responsible adult stay with you until you are awake and alert. ??? Take glwc-uok-jwkjzrl and prescription medicines only as told by your health care provider. ??? If you smoke, do not smoke without supervision. ??? Keep all follow-up visits as told by your health care provider. This is important. Contact a health care provider if: ??? You keep feeling nauseous or you keep vomiting. ??? You feel light-headed. ??? You develop a rash. ??? You have a fever. Get help right away if: ??? You have trouble breathing. This information is not intended to replace advice given to you by your health care provider. Make sure you discuss any questions you have with your health care provider. Document Released: 06/09/2014 Document Revised: 01/21/2017 Document Reviewed: 12/08/2016 [employer] Interactive Patient Education ?? 2020 [employer] Pacemaker Implantation, Adult, Care After This sheet gives you information about how to care for yourself after your procedure. Your health care provider may also give you more specific instructions. If you have problems or questions, contact your health care provider. What can I expect after the procedure? After the procedure, it is common to have: ??? Mild pain. ??? Slight bruising. ??? Some swelling over the incision. ??? A slight bump over the skin where the device was placed. Sometimes, it is possible to feel the device under the skin. This is normal. Follow these instructions at home: Medicines ??? Take dtlh-kzt-ynmbjdu and prescription medicines only as told by your health care provider. ??? If you were prescribed an antibiotic medicine, take it as told by your health care provider. Do not stop taking the antibiotic even if you start to feel better. Wound care ??? Do not remove the bandage on your chest until directed to do so by your health care provider. ??? After your bandage is removed, you may see pieces of tape called skin adhesive strips over the area where the cut was made (incision site). Let them fall off on their own. ??? Check the incision site every day to make sure it is not infected, bleeding, or starting to pull apart. ??? Do not use lotions or ointments near the incision site unless directed to do so. ??? Keep the incision area clean and dry for 2???3 days after the procedure or as directed by your health care provider. It takes several weeks for the incision site to completely heal. ??? Do not take baths, swim, or use a hot tub for 7???10 days or as otherwise directed by your health care provider. Activity ??? Do not drive or use heavy machinery while taking prescription pain medicine. ??? Do not drive for 24 hours if you were given a medicine to help you relax (sedative). ??? Check with your health care provider before you start to drive or play sports. ??? Avoid sudden jerking, pulling, or chopping movements that pull your upper arm far away from your body. Avoid these movements for at least 6 weeks or as long as told by your health care provider. ??? Do not lift your upper arm above your shoulders for at least 6 weeks or as long as told by your health care provider. This means no tennis, golf, or swimming. ??? You may go back to work when your health care provider says it is okay. Pacemaker care ??? You may be shown how to transfer data from your pacemaker through the phone to your health care provider. ??? Always let all health care providers know about your pacemaker before you have any medical procedures or tests. ??? Wear a medical ID bracelet or necklace stating that you have a pacemaker. Carry a pacemaker ID card with you at all times. ??? Your pacemaker battery will last for 5???15 years. Routine checks by your health care provider will let the health care provider know when the battery is starting to run down. The pacemaker will need to be replaced when the battery starts to run down. ??? Do not use amateur radio equipment or electric welding torches. Other electrical devices are safe to use, including power tools, lawn mowers, and speakers. If you are unsure of whether something is safe to use, ask your health care provider. ??? When using your cell phone, hold it to the ear opposite the pacemaker. Do not leave your cell phone in a pocket over the pacemaker. ??? Avoid places or objects that have a strong electric or magnetic field, including: ? Airport security sandhu. When at the airport, let officials know that you have a pacemaker. ? Power plants. ? Large electrical generators. ? Radiofrequency transmission towers, such as cell phone and radio towers. General instructions ??? Weigh yourself every day. If you suddenly gain weight, fluid may be building up in your body. ??? Keep all follow-up visits as told by your health care provider. This is important. Contact a health care provider if: ??? You gain weight suddenly. ??? Your legs or feet swell. ??? It feels like your heart is fluttering or skipping beats (heart palpitations). ??? You have chills or a fever. ??? You have more redness, swelling, or pain around your incisions. ??? You have more fluid or blood coming from your incisions. ??? Your incisions feel warm to the touch. ??? You have pus or a bad smell coming from your incisions. Get help right away if: ??? You have chest pain. ??? You have trouble breathing or are short of breath. ??? You become extremely tired. ??? You are light-headed or you faint. This information is not intended to replace advice given to you by your health care provider. Make sure you discuss any questions you have with your health care provider. Document Released: 03/08/2006 Document Revised: 08/19/2019 Document Reviewed: 05/31/2017 [employer] Interactive Patient Education ?? 2020 [employer] Fractured Pacemaker Lead Replacement The most common cause of a pacemaker malfunction is a broken (fractured) lead. Leads, also called electrodes, are made of one or two wires that are and covered with insulation. The wires or the insulation can break, or the contact point in the heart can stop responding to the spark from the pacemaker. When this happens, the lead must be replaced. Tell a health care provider about: ??? Any allergies you have. ??? All medicines you are taking, including vitamins, herbs, eye drops, creams, and ooxt-jxv-rofrdyc medicines. ??? Any problems you or family members have had with anesthetic medicines. ??? Any blood disorders you have. ??? Any surgeries you have had. ??? Any medical conditions you have. ??? Whether you are or may be . What are the risks? Generally, this is a safe procedure. However, problems may occur, including: ??? Piercing (puncturing) a lung. ??? Blood clotting in the vein that is used. ??? Another lead malfunction. ??? Infection. ??? Bleeding. ??? Allergic reaction to medicines. ??? Damage to other structures or organs. ??? Fluid buildup around the heart or lungs. What happens before the procedure? Follow instructions from your health care provider about eating or drinking restrictions. ??? Ask your health care provider about: ? Changing or stopping your regular medicines. This is especially important if you take diabetes medicines or blood thinners. ? Taking medicines such as aspirin and ibuprofen. These medicines can thin your blood. Do not take these medicines before your procedure if your health care provider instructs you not to. ??? Your pacemaker will be evaluated. You may have a chest X-ray. ??? Plan to have someone take you home from the hospital or clinic. What happens during the procedure? To lower your risk of infection: ? Your health care team will wash or sanitize their hands. ? Your skin will be washed with soap. ? Hair may be removed from the surgical area. ??? An IV tube will be inserted into one of your veins. ??? You will be given one or more of the following: ? A medicine to help you relax (sedative). ? A medicine to numb the area (local anesthetic). ? A medicine to make you fall asleep (general anesthetic). ??? An incision will be made in your chest, typically at the scar from the pacemaker implantation surgery. ??? The fractured lead will be unscrewed from the pacemaker. There is usually an effort to remove the broken lead. Sometimes this is too difficult or dangerous, so the fractured lead may be left in place. ??? A new lead will be moved through a vein with the use of X-ray images. The lead tip will be positioned into the heart muscle. ??? The other end of the lead will be attached to the generator. ??? Your incision will be closed with stitches (sutures) or germ-free (sterile) tape. ??? A bandage (dressing) may be applied over the incision site. The procedure may vary among health care providers and hospitals. What happens after the procedure? Your arm on the side of the procedure should not be raised higher than your shoulder for at least 5 days, or as long as directed by your health care provider. Except for this restriction, continue to use your arm as normal to prevent problems. ??? Your blood pressure, heart rate, breathing rate, and blood oxygen level will be monitored until the medicines you were given have worn off. ??? You may have chest X-rays to check the new leads. ??? Do not drive for 24 hours if you received a sedative. Summary ??? The most common cause of a pacemaker malfunction is a broken (fractured) lead, which must be replaced. ??? Before the procedure, ask your health care provider about changing or stopping your normal medicines. ??? Your arm on the side of the procedure should not be raised higher than your shoulder for at least 5 days, or as long as directed by your health care provider. This information is not intended to replace advice given to you by your health care provider. Make sure you discuss any questions you have with your health care provider. Document Released: 09/18/2006 Document Revised: 09/08/2019 Document Reviewed: 07/09/2017 [employer] Interactive Patient Education ?? 2020 [employer] Emergency Awareness and Preventative Care STROKE is an EMERGENCY Every Minute Counts Act FAST and Check for these signs: FACE Does the face look uneven? ARM Does one arm drift down? SPEECH Does their speech sound strange? TIME Call at any sign of stroke Stroke Risk Factors Atrial Fibrillation (irregular heartbeat) Diabetes Family history of stroke Heart Disease Heavy alcohol use High Blood Pressure High Cholesterol Physical inactivity and obesity Smoking Cigarette Smoking The facts are clear, cigarette smoking will shorten your life. Smoking can cause many illnesses along the way. As a healthcare provider, we recommend that you stop smoking. Assistance with quitting is available by contacting 2-380-GURWNOW. This is a free resource providing counseling, support, and referral. Or you may contact your personal physician. [place] Suicide Prevention Lifeline: The National Suicide Prevention Lifeline is a national network of local crisis centers that provides free and confidential emotional support to people in suicidal crisis or emotional distress 24 hours a day, 7 days a week. Don't Wait! Stop a Heart Attack Before it Starts What is a heart attack? A heart attack is damage or to a part of the heart from severely decreased or lack of blood flow to the heart. Over time, arteries can become narrow from the buildup of fat and cholesterol, which is called plaque. The plaque can rupture causing a blood clot to form. When the blood clot forms, the artery can become severely narrowed or completely blocked, causing a heart attack. Heart attack is the leading cause of in the [place]. 85% of muscle damage occurs within the first 2 hours. Delay in the recognition of heart attack symptoms increases the chances of . Know the early symptoms of a heart attack: Nausea Feeling of fullness in chest Jaw Pain Pain that travels down one or both arms Fatigue/being tired Anxiety Back Pain Chest pressure, squeezing, or discomfort Shortness of breath Sweating, or a cold sweat Feeling of impending doom There are unusual signs of a heart attack, too! Women, the elderly, and diabetics may present with atypical symptoms: Fainting/dizziness Weakness Confusion Risk Factors for a Heart Attack Some heart disease risk factors, such as age and family history, cannot be changed. Others, like smoking and lack of exercise, can be changed. Smoking High Cholesterol High Blood Pressure Family History Obesity Age Gender (Males are at higher risk) Lack of Exercise Diabetes Diet Stress Excessive Alcohol Intake If you or someone you know is experiencing the signs and symptoms of a heart attack, DON???T DELAY. Call immediately and seek help. If someone collapses, perform CPR! Do not attempt to drive if you are having symptoms of heart attack. Hands-Only CPR Why Hands-Only CPR? Hands-Only CPR has been shown to be as effective as conventional CPR for cardiac arrests that occur outside of a hospital. Survival depends on immediately receiving CPR from someone nearby. How do you perform Hands-Only CPR? There are two easy steps: Call 9-1-1 if you see a teen or adult collapse Push hard and fast in the center of the chest at a beat of 100 beats per minute. Save a life! 4 WAYS TO GET AHEAD OF SEPSIS SEPSIS is a MEDICAL EMERGENCY. Time matters! Infections put you and your family at risk for a life-threatening condition called sepsis. Sepsis is the body's extreme response to an infection. It is life-threatening, and without timely treatment, sepsis can rapidly lead to tissue damage, organ failure, and . Sepsis happens when an infection you already have-in your skin, lungs, urinary tract or somewhere else-triggers a chain reaction throughout your body. 1 PREVENT INFECTIONS Take good care of chronic conditions. Talk to your doctor about getting the recommended vaccines. 2 PRACTICE GOOD HYGIENE Wash your hands frequently. Keep cuts or open sores clean and covered until they are healed. 3 KNOW THE SYMPTOMS Confusion or disorientation Shortness of breath High heart rate Fever, shivering, or feeling very cold Extreme pain or discomfort Clammy or sweaty skin 4 ACT FAST Get medical care IMMEDIATELY if you suspect sepsis or if you have an infection that is not getting better or is getting worse. To learn more about sepsis and how to prevent infections, visit www.cdc.gov/sepsis. Test Results Laboratory or Other Results This Visit (last charted value for your 03/23/2020 visit) Hematology 03/23/2020 3:49 PM Hemoglobin POC: 13.3 Gram/dL -- Normal range between ( 12.0 and 17.0 ) Hematocrit POC: 39.0 % -- Normal range between ( 38.0 and 51.0 ) 03/23/2020 3:45 PM Platelet Count: 167 K/uL -- Normal range between ( 163 and 369 ) General Chemistry 03/23/2020 3:49 PM eGFR : 98 mL/min/1.73m2 eGFR NonAfrican: 81 mL/min/1.73m2 Sodium POC: 141 mmol/L -- Normal range between ( 138 and 146 ) Ca Ioniz POC: 1.26 mmol/L -- Normal range between ( 1.12 and 1.32 ) Potassium POC: 4.1 mmol/L -- Normal range between ( 3.5 and 4.9 ) Creatinine POC: 0.9 mg/dL -- Normal range between ( 0.6 and 1.3 ) BUN POC: 15 mg/dL -- Normal range between ( 8 and 26 ) CO2 POC: 28.0 mmol/L -- Normal range between ( 24.0 and 29.0 ) Chloride POC: 100 mmol/L -- Normal range between ( 98 and 109 ) Glucose POC: 89 mg/dL -- Normal range between ( 70 and 105 ) Anion Gap POC: 18.0 mmol/L -- Normal range between ( 10.0 and 20.0 ) Patient Name:PAT MENCHACA I have received and understand this information and was given the opportunity to ask questions. Patient/Tubing Mill Operator Name: Patient/Tubing Mill Operator Signature: Relationship to Patient: Clinician/Hospital Tubing Mill Operator Signature: Date: documented in this encounter Plan of Treatment Not on file documented as of this encounter Visit Diagnoses Not on filedocumented in this encounter Care Teams Bus Info Consultant Relationship Specialty Start Date End Date Avery, Karlene, PELT GRADER [address] [facility] [address] [place] [id number] PCP - General Nurse Practitioner 02/06/23 documented as of this encounter
--- OUTSIDE RECORDS SUMMARY | 2024-07-21 17:16 | XMS_ITS | Encounter Summary ---
Author Organization [facility] In iatives Address [address] [place] [address] Care Team Providers Care Air Quality Technician Name Role Phone Bennie Allyson BABCOCK Primary Care Provider + [phone] Encounter Details Date Type Department Care Team (Late st Contact Info) Description 03/17/2020 Transcribed Document [facility] [place] [address] [place] [address] ProviderTatiana MD [address] [place] [address] [id number] Social History Tobacco Use Types Packs/Day Years Used Date Smoking Tobacco: Never Assessed Sex and Gender Information Value Date Recorded Sex Assigned at Not on file Legal Sex Male 5:33 PM CDT Gender Identity Not on file Sexual Orientation Not on file documented as of this encounter Miscellaneous Notes * Cerner Conversion Note - Tatiana ProviderMD - 03/17/2020 10:04 AM CDT Stroke/Warfarin Instructions Entered On: 03/17/2020 10:04 EDT Performed On: 03/17/2020 10:04 EDT by GRANT CRAIN RN Stroke/Warfarin Instructions Stroke/TIA Discharge Ins : N/A Warfarin Discharge Ins : N/A GRANT CRAIN RN - 03/17/2020 10:04 EDT Stroke/TIA Discharge Instructions My LDL Level: : LDL Level No qualifying data available. GRANT CRAIN RN - 03/17/2020 10:04 EDT documented in this encounter Plan of Treatment Not on file documented as of this encounter Visit Diagnoses Not on filedocumented in this encounter Care Teams Air Quality Technician Relationship Specialty Start Date End Date Allyson Avery, YOKO [address] [phone] PCP - General Nurse Practitioner 02/06/23 documented as of this encounter
--- OUTSIDE RECORDS SUMMARY | 2024-07-21 17:16 | XMS_ITS | Encounter Summary ---
Author Organization [facility] In iatives Address [address] [place] [address] Care Team Providers Care Flag Signaler Name Role Phone AveryAllyson la YOKO Primary Care Provider + [phone] Encounter Details Date Type Department Care Team (Late st Contact Info) Description 03/23/2020 Transcribed Document [facility] [place] [address] [place] [address] ProviderTatiana MD [address] [place] [address] [phone] Social History Tobacco Use Types Packs/Day Years Used Date Smoking Tobacco: Never Assessed Sex and Gender Information Value Date Recorded Sex Assigned at Not on file Legal Sex Male 5:33 PM CDT Gender Identity Not on file Sexual Orientation Not on file documented as of this encounter Miscellaneous Notes * Cerner Conversion Note - Tatiana Polanco MD - 03/23/2020 4:49 PM CDT DATE OF PROCEDURE: 03/23/2020 SURGEON: Parish Pérez MD PREOPERATIVE DIAGNOSIS: Inappropriate ICD shock due to loose setscrew. POSTOPERATIVE DIAGNOSIS: Inappropriate ICD shock due to loose setscrew. PROCEDURE PERFORMED: ICD setscrew reposition. INDICATIONS: The patient is an 79-year-old white male, who recently received a dual-chamber ICD and has received inappropriate shock therapy. Noninvasive evaluation is most consistent with a loose setscrew. DESCRIPTION OF PROCEDURE: After the aseptic draping the left pectoral region, the area of the generator was infiltrated with 1% lidocaine locally. Incision was carried down the pocket from which the generator was delivered. The old TYRX patch was removed. The lead was found to be inadequately fixated by the setscrew. The pin was reset and the setscrew was affixed appropriately. The pocket was irrigated with antibiotic solution. Hemostasis was achieved. Thrombin was instilled in the pocket. Generator was reimplanted new a TYRX patch and the system was placed in the pocket. Interrupted 2-0 and running 3-0 Vicryl suture were used to close the wound deep and superficial subcutaneous levels, running 4-0 Vicryl suture was used to close the wound at subcuticular level. Medical adhesive was placed over the incision followed by placement of Aquacel patch and a pressure dressing. The patient tolerated the procedure well and left the laboratory in stable condition. COMPLICATIONS: None. SPECIMENS REMOVED: None. ESTIMATED BLOOD LOSS: Less than 10 mL. RECOMMENDATIONS: Standard postop wound care, home remote monitoring, and device clinic followup. /[id number] Parish Pérez MD TCR/AQ / TCR / MODL /[id number] Electronically signed by [facility], [facility] Conversion Condominium Association Manager Cerner at 12/20/2022 12:33 PM CDT documented in this encounter Plan of Treatment Not on file documented as of this encounter Visit Diagnoses Not on filedocumented in this encounter Care Teams Flag Signaler Relationship Specialty Start Date End Date Allyson Avery APRN [address] [phone] PCP - General Nurse Practitioner 02/06/23 documented as of this encounter
--- OUTSIDE RECORDS SUMMARY | 2024-07-21 17:16 | XMS_ITS | Encounter Summary ---
Author Organization [facility] In iatives Address [address] [place] [address] Care Team Providers Care Lemon Grower Name Role Phone Bennie Allyson YOKO Primary Care Provider + [phone] Encounter Details Date Type Department Care Team (Late st Contact Info) Description 03/15/2020 Transcribed Document [facility] [place] [facility] [place] [address] ProviderTatiana MD [address] [place] [place] [phone] Social History Tobacco Use Types Packs/Day Years Used Date Smoking Tobacco: Never Assessed Sex and Gender Information Value Date Recorded Sex Assigned at Not on file Legal Sex Male 5:33 PM CDT Gender Identity Not on file Sexual Orientation Not on file documented as of this encounter Miscellaneous Notes * Cerner Conversion Note - Tatiana ProviderMD - 03/15/2020 10:19 AM CDT UM Authorization Entered On: 03/15/2020 10:19 EDT Performed On: 03/15/2020 10:19 EDT by TERRI JIMENEZ Rn-Utilization Review Primary Insurance Authorization Authorization and Policy Numbers : Insurance 1 Health Plan: MEDICARE Policy Number: [id number] Authorization Number: Insurance 2 Health Plan: AARP N Policy Number: [id number] Authorization Number: Insurance Primary Name : MEDICARE Policy Number: [id number] AARP N Policy Number: [id number] Historical Authorization Comments-Primary : No Authorization Comments Found TERRI JIMENEZ Rn-Utilization Review - 03/15/2020 10:19 EDT documented in this encounter Plan of Treatment Not on file documented as of this encounter Visit Diagnoses Not on filedocumented in this encounter Care Teams Lemon Grower Relationship Specialty Start Date End Date Allyson Avery, YOKO [address] [place] [address] [place] [phone] PCP - General Nurse Practitioner 02/06/23 documented as of this encounter
--- OUTSIDE RECORDS SUMMARY | 2024-07-21 17:16 | XMS_ITS | Encounter Summary ---
Author Organization [facility] In iatives Address [address] [place] [address] Care Team Providers Care Fagoter Name Role Phone Allyson Avery APRN Primary Care Provider + [phone] Encounter Details Date Type Department Care Team (Late st Contact Info) Description 03/14/2020 Transcribed Document [facility] [place] [address] [place] [address] ProviderTatiana MD [address] [place] [phone] Social History Tobacco Use Types Packs/Day Years Used Date Smoking Tobacco: Never Assessed Sex and Gender Information Value Date Recorded Sex Assigned at Not on file Legal Sex Male 5:33 PM CDT Gender Identity Not on file Sexual Orientation Not on file documented as of this encounter Miscellaneous Notes * Cerner Conversion Note - Tatiana ProviderMD - 03/14/2020 8:02 AM CDT Patient: PAT MENCHACA Age: 79 Years Sex: Male : 1940 Chief Complaint pt here with family states high blood pressure readings at home. and states multiple blacking out spells. states significant cardiac hx. states pressure on his chest PCP: Allyson Avery APRN Cardiology: MD Francia History of Present Illness The patient is a very pleasant 79 year old gentleman with a past medical history of coronary artery disease s/p CABG (December 09, 2014 Cath 1/3 grafts occluded and he received BMS to OM 2 and OM 3. EF : 35-40%. Started on Plavix and Ranexa. 10/2016 CP & estevez zone troponin. Cath (Ricardo) revealed significant stenosis in the SVG to OM2/3, treated with 4.0 x 32 mm Synergy EMANUEL. Moderate lesion just distal to the MONROY anastomosis to the LAD, 50-70% severity), sick sinus syndrome (s/p Medtronic MRI compatible dual chamber permanent pacemaker implantation), hypertensive, hyperlipidemia. He presents to the emergency department last evening with complaints of spell. The patient states he was assisting his to sit back on the couch when he states everything went black . He states he felt his pacemaker twinging , but denies chest pain, chest discomfort. He had altered vision like things were moving and he felt confused. He felt off balance like he would fall. He did not have slurred speech, no focal weakness, no numbness or tingling. He states he had another episode similar to this last week while working on the tractor with his son. This episode was self resolving. Review of systems 14 point review of systems obtained negative except mentioned above Physical Exam Vitals & Measurements T: 36.4 ??C HR: 60(Monitored) RR: 21 BP: 99/58 SpO2: 100% HT: 182.88 cm WT: 79.55 kg BMI: 23.8 General: [Alert and oriented, well nourished, no acute distress, dgtr at bedside]. Neurologic: [Awake, alert, and oriented X3, CN II-XII intact]. Eye: [PERRL, EOMI, normal conjuctiva]. HENT: [Normocephalic, normal hearing, moist oral mucosa, no scleral icterus]. Neck: [Supple, non-tender, no carotid bruits, no JVD]. Lungs: [Clear to auscultation, non-labored respiration]. Heart: [Normal rate, regular rhythm, no murmur, no edema]. Abdomen: [Soft, non-tender, non-distended, normal bowel sounds, no bruit]. Musculoskeletal: [Normal range of motion and strength]. Skin: [Skin is warm, dry and pink, no rashes]. Psychiatric: [Cooperative, appropriate mood and affect]. Assessment/Plan Presyncope VT CAD prior CABG SSS HTN HLP Medtronic dual chamber MRI compatible PPM implantation 2016. device interrogation revealed 4 episodes NSVT since 02/03/20. 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 Since time of interrogation 13 beat run of VT revealed on telemetry, no therapy Recheck electrolytes, trend cardiac markers, repeat echocardiogram further recommendations pending results, will likely need repeat ischemic workup (last ischemic study 2016) Thank you for this consultation we will continue to follow please call with CV questions/concerns Problem List/Past Medical History Ongoing Allergic rhinitis Angina Arthritis At risk for sleep apnea Cardiac arrhythmia Coronary artery disease Hard of hearing Hyperlipidemia Hypertension Myocardial infarction Renal calculi Stented coronary artery Historical No qualifying data Procedure/Surgical History INSERT PACE. DUAL HIRA IN CHEST SUBCU/FASCIA, OPEN (06/25/2017), INSERTION OF PACEMAKER LEAD INTO RIGHT ATRIUM, PERC APPROACH (06/25/2017), DILATION OF 1 COR ART WITH DRUG-ELUT INTRALUM, PERC APPROACH (06/24/2017), FLUOROSCOPY OF MULT COR A GRAFT USING OTH CONTRAST (06/24/2017), ULTRASONOGRAPHY OF HEART WITH AORTA (06/23/2017), FLUOROSCOPY OF MULT COR A GRAFT USING OTH CONTRAST (06/21/2017), MEASURE OF CARDIAC SAMPL & PRESSURE, L HEART, PERC APPROACH (06/21/2017), MEASURE OF CARDIAC SAMPL & PRESSURE, L HEART, PERC APPROACH (06/21/2017), DILATION OF 1 COR ART WITH DRUG-ELUT INTRALUM, PERC APPROACH (10/12/2016), MEASURE OF CARDIAC SAMPL & PRESSURE, L HEART, PERC APPROACH (10/12/2016), PLAIN RADIOGRAPHY OF LEFT HEART USING OTHER CONTRAST (10/12/2016), PLAIN RADIOGRAPHY OF MULT COR ART USING OTH CONTRAST (10/12/2016), PLAIN RADIOGRAPHY OF OTHER BYPASS GRAFT USING OTHER CONTRAST (10/12/2016), cardiac catheterization (2014), coronary stents (2014), Polyp removal surgery (2013), left arm surgery (2003), CABG (1996). Allergies No Known Allergies Medications allopurinol, 100 mg= 1 Tab, Oral, Daily allopurinol 100 mg oral tablet, 100 mg= 1 Tab, Oral, Daily amLODIPine 5 mg oral tablet, 5 mg= 1 Tab, Oral, Daily aspirin, 81 mg= 1 Tab, Oral, Daily Aspirin Low Dose 81 mg oral tablet, 1 Tab, Oral, Daily Cebria Memory Support Capsule, 1 Cap, Oral, Daily Coenzyme Q10 200 mg oral capsule, 2 Cap, Oral, Daily Colace 100 mg oral capsule, 400 mg= 4 Cap, Oral, At Bedtime colestipol, 2 Gram= 2 Tab, Oral, QAM colestipol, 4 Gram= 4 Tab, Oral, QPM Coreg, 25 mg= 1 Tab, Oral, BID Crestor 20 mg oral tablet, 40 mg= 2 Tab, Oral, Saturday Fish Oil 1200 mg oral capsule, 2400 mg= 2 Cap, Oral, BID insulin lispro sliding scale, Scale A:, SubCutaneous, AC and at Bedtime levothyroxine, 75 mcg= 1 Tab, Oral, Daily levothyroxine 75 mcg (0.075 mg) oral tablet, 75 mcg= 1 Tab, Oral, Daily lisinopril, 20 mg= 1 Tab, Oral, Daily lisinopril 20 mg oral tablet, 20 mg= 1 Tab, Oral, Daily Metanx oral capsule, 1 Cap, Oral, BID Metoprolol Tartrate 25 mg oral tablet, 12.5 mg= 0.5 Tab, Oral, BID, 3 refills MiraLax, 17 Gram= 1 Packet, Oral, Daily Multiple Vitamins oral tablet, 1 Tab, Oral, Daily NexIUM 40 mg oral delayed release capsule, 40 mg= 1 Cap, Oral, Daily Osteo Bi-Flex Plus MSM, 1 Tab, Oral, BID Plavix, 75 mg, Oral, Daily Plavix, 75 mg= 1 Tab, Oral, Daily Ranexa, 500 mg= 1 Tab, Oral, Daily Ranexa 500 mg oral tablet, extended release, 500 mg= 1 Tab, Oral, Daily Tylenol, 650 mg= 2 Tab, Oral, Q4H, PRN Welchol 625 mg oral tablet, 1250 mg= 2 Tab, Oral, At Bedtime Welchol 625 mg oral tablet, 625 mg= 1 Tab, Oral, QAM Family History dm, htn, heart disease, cva Social History Alcohol Alcohol Use History No. 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 Highest education level: High school. Operates hazardous equipment: Yes. Workplace hazards: Heavy lifting/twisting. Exercise Exercise duration: 0. Home/Environment Lives with Spouse. Living situation: Home/Independent. Alcohol abuse in household: No. Substance abuse in household: No. Smoker in household: No. Injuries/Abuse/Neglect in household: No. Feels unsafe at home: No. Safe place to go: Yes. Agency(s)/Others notified: No. Family/Friends available for support: Yes. Concern for family members at home: No. Major illness in household: Yes. Financial concerns: No. Nutrition/Health Type of diet: several teeth removed in the last 6 months and having difficulty chewing. Regular, Caffeine intake amount: none. Sexual Sexually active: No. Substance Abuse Drug Use Hx: No. Use in Last 12 Months: No. Tobacco Never (less than 100 in lifetime) Smoking Status. Never Smokeless Tobacco Status. None Smokeless Tobacco Use History. Use in Last 12 Months: No. Smoking Status Never smoker. Second Hand Smoke Exposure: No. Tobacco Use/Smoking within Last 30 Days No. Code Status / Living Will Resuscitation Status - Ordered -- Start: 03/13/20 23:34:00 EDT, Full Treatment - Intubation/No ACLS, Continuous Order Labs Results MAR 13 22:00 \ 14.0 / 4.8 169 / 41.6 \ Cardiac Labs Cardiology Labs Cardiac Markers ProBNP: 377 pg/mL (03/13/20 22:00:00) Troponin I Ultra: 0.078 ng/mL High (03/14/20 04:42:00) Electronically signed by [facility] Conversion Air Bag Builder Cerner at 12/20/2022 12:10 PM CDT documented in this encounter Plan of Treatment Not on file documented as of this encounter Visit Diagnoses Not on filedocumented in this encounter Care Teams Fagoter Relationship Specialty Start Date End Date Allyson Avery APRN [address] [place] [address] [place] [phone] PCP - General Nurse Practitioner 02/06/23 documented as of this encounter
--- OUTSIDE RECORDS SUMMARY | 2024-07-21 17:16 | XMS_ITS | Referral Summary ---
Author Organization [facility] In [facility] Address [address] [place] [address] Care Team Providers Care Radio Mechanic Apprentice Name Role Phone Allyson Avery APRN Primary Care Provider + [phone] Social History Tobacco Use Types Packs/Day Years Used Date Smoking Tobacco: Never Assessed Interpersonal Safety Answer Date Record ed Family or friends hurt you Not on file 09/19 Family or friends insult you Not on file Family or friends threaten you Not on file 0 09/19/2023 Family or friends scream or curse at you Not on file 09/19/2023 Housing Stability Answer Date Recorded Living situation today Not on file Living situation problems Not on file 2023 Food Insecurity Answer Date Recorded Food run out past 12 months Not on file 09/02 Food did not last past 12 months Not on file 09/19/2023 Employment Answer Date Recorded Help finding and keeping a job Not on file 0 09/19/2023 Family and Community Support Answer Bernard e Recorded Help with Day to Day Activities Not on file 09/19/2023 Feeling Lonely or Isolated Not on file 09/19 Educational Attainment Answer Date Roque rded Speak language other than Croatian at home Not on file 09/19/2023 Want help with school or training Not on file 09/19/2023 Depression Answer Date Recorded PHQ-2 Risk Not on file 09/19/2023 Disabilities Answer Date Recorded Difficulty concentrating Not on file 024 Difficulty doing errands alone Not on file 0 09/19/2023 Substance Use Answer Date Recorded Used prescription meds for non-medical reasons N ot on file 09/19/2023 Used illegal drugs past 12 months Not on file 09/19/2023 Sex and Gender Information Value Date Recorded Sex Assigned at Not on file Legal Sex Male 5:33 PM CDT Gender Identity Not on file Sexual Orientation Not on file Plan of Treatment Not on file Insurance MEDICARE [place] [address] HEALTH CLAIMS Care Teams Radio Mechanic Apprentice Relationship Specialty Start Date End Date Allyson Avery APRN [address] [phone] PCP - General Nurse Practitioner 02/06/23
--- OUTSIDE RECORDS SUMMARY | 2024-07-21 17:16 | XMS_ITS | Encounter Summary ---
Author Organization [facility] In iatives Address [address] [place] [address] Care Team Providers Care Tarring Machine Operator Name Role Phone Allyson Avery APRN Primary Care Provider + [phone] Encounter Details Date Type Department Care Team (Late st Contact Info) Description 03/13/2020 Transcribed Document [facility] [place] [address] [place] [address] ProviderTatiana MD [address] [place] [address] [phone] Social History Tobacco Use Types Packs/Day Years Used Date Smoking Tobacco: Never Assessed Sex and Gender Information Value Date Recorded Sex Assigned at Not on file Legal Sex Male 5:33 PM CDT Gender Identity Not on file Sexual Orientation Not on file documented as of this encounter Miscellaneous Notes * Cerner Conversion Note - Tatiana Polanco MD - 03/13/2020 11:27 PM CDT DATE OF ADMISSION: 03/13/2020 REFERRING PHYSICIAN: GUANACO GUILLERMO MD PRIMARY CARE PHYSICIAN: Ms. Allyson Avery APRN, [place], [place]. [facility] , 1940. CURRENT COMPLAINT: Spell of brief change in vision, sharp chest discomfort, and hypertension. HISTORY OF PRESENT ILLNESS: Meet Menchaca is an 79-year-old man, well known to me from prior admission here in the 2018. He has a remote history of coronary artery disease and coronary artery bypass grafting. At the time of his last cardiac catheterization about 2-1/2 years ago, he had evidence of patent left main, in-stent stenosis in the left circumflex, 90% LAD proximal stenosis with occlusion in the midvessel bypassed by MONROY graft and post graft stenosis...thought to be culprit, 100% right coronary artery occlusion, ostial occlusion of SVG to RCA, and a 30% stenosis in the SVG to OM branch. The LAD being stented with a 2.5 x 16 Synergy stent at that time. He has done generally well. I saw him last when he had a period of atypical chest discomfort and he had a minimal elevation of troponin and no specific conclusion was made as to his symptomatology. I believe it was thought that the biomarker abnormalities simply represent a chronic myocardial disease. Since then, he has done generally well. He has been maintained on medications noted below. In the last month, he has had two spells that he thought may be related to his heart. 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 ON 03/13, he had a similar symptom today which lasted only a second or so, but was followed by hypertension as measured by his daughter when she checked his blood pressure. The event was that he assisted his to reposition herself on a couch and following that, he had a brief period where he had a sharp pain in the upper chest which was instantaneous and a feeling of a darkness passing in front of his eyes which lasted less than a second. Because of these symptoms and concerned about his heart, he came to the emergency room for evaluation. On admission here, his blood pressure was 150/80, his pulse was 70, oxygen saturation 99% on room air. He was afebrile. LABORATORY DATA AND IMAGING STUDIES: Laboratory testing was non-alarming. Troponin level was 0.074 and ProBNP 377. His white count was 4.8, hematocrit 41%. Urinalysis was unremarkable. CT of the head without contrast revealed diffuse atrophy. Chest x-ray revealed no acute process. EKG revealed sinus bradycardia with first-degree heart block, right bundle-branch block, and significant Q-waves in III and F. Pacemaker interrogation was unrevealing, but obvious when his telemetry monitoring was manually reviewed, while in the ER he had an episode of regular wide-complex tachycardia at recorded an hour or so prior to his pacemaker interrogation. He is admitted now for further evaluation and therapy. USUAL MEDICATIONS: Include 1. Aspirin 81 mg a day. 2. Allopurinol 100 mg a day. 3. Carvedilol 25 b.i.d. 4. Clopidogrel 75 mg per day. 5. Fish oil. 6. Coenzyme Q. 7. Levothyroxine 75 mcg a day. 8. Lisinopril 20 mg a day. 9. HCTZ 12.5 mg a day. 10. Metformin 500 b.i.d. 11. Nexium 40 mg a day. 12. Ranexa 500 b.i.d. 13. Crestor 40 mg once a week. 14. Welchol 625 two tablets twice a day. ALLERGIES: None. HABITS: Tobacco, never. Alcohol 1 drink of beer one time. PAST MEDICAL HISTORY: As previously documented. FAMILY HISTORY: As previously documented. SOCIAL HISTORY: As previously documented. REVIEW OF SYSTEMS: He is very active and generally feels well. He denies significant dyspnea on exertion, chest pain, palpitations, fainting spells, orthopnea, or edema. PHYSICAL EXAMINATION: VITAL SIGNS: Blood pressure is 145/70, pulse is 70 and regular, temperature 98, respirations 15. HEENT: Eyes, nonicteric. Extraocular movements conjugate. NECK: Supple. LUNGS: Clear. HEART: Tones normal. Left subclavicular pacemaker. ABDOMEN: Soft. EXTREMITIES: Unremarkable. No edema. Adequate pulses. IMPRESSION: 1. Mr. Menchaca describes two brief episodes where he had a sharp chest discomfort, a feeling of funny heartbeat and a change with a feeling of darkness passing over his vision. The first lasted a couple of minutes and the second, this evening, lasted a second. No objective abnormalities in examination are noted. Telemetric monitoring revealed a brief period of wide-complex regular tachycardia consistent with ventricular tachycardia and apparently not identified on pacemaker interrogation. Recommend admit. Check magnesium level. Review these issues with his general assembler installer. Anticipate possible repeat cardiac catheterization. 2. Cardiac biomarker abnormality. The minimal abnormality of troponin may represent chronic myocardial injury versus a type 2 infarction associated with demand. The former is suggested by previous elevation with non-specific symptoms. 3. CAD 4. Hypertension 5. Hypothyroidism 6. Diabetes mellitus 7. other problems identified above /[id number] Eleazar Capellan MD MGKatie/AQ / MGE / MODL CC: Ms Bennie APRN, [place], [place], Dr. Heath Feldman Electronically signed by Angel [facility] Conversion Equity Director Cerner at 12/20/2022 12:26 PM CDT documented in this encounter Plan of Treatment Not on file documented as of this encounter Visit Diagnoses Not on filedocumented in this encounter Care Teams Tarring Machine Operator Relationship Specialty Start Date End Date Allyson Avery APRN [address] [id number] PCP - General Nurse Practitioner 02/06/23 documented as of this encounter
--- OUTSIDE RECORDS SUMMARY | 2024-07-21 17:16 | XMS_ITS | Encounter Summary ---
Author Organization [facility] In iatives Address [address] [place] [address] Care Team Providers Care Mobile Health Vehicle Operator Name Role Phone Bennie Allyson BABCOCK Primary Care Provider + [phone] Encounter Details Date Type Department Care Team (Late st Contact Info) Description 03/13/2020 Transcribed Document [facility] [place] [address] [place] [address] ProviderTatiana MD [address] [place] [address] [phone] Social History Tobacco Use Types Packs/Day Years Used Date Smoking Tobacco: Never Assessed Sex and Gender Information Value Date Recorded Sex Assigned at Not on file Legal Sex Male 5:33 PM CDT Gender Identity Not on file Sexual Orientation Not on file documented as of this encounter Miscellaneous Notes * Cerner Conversion Note - Tatiana ProviderMD - 03/13/2020 9:29 PM CDT ED Triage Entered On: 03/13/2020 21:44 EDT Performed On: 03/13/2020 21:38 EDT by Salty Wolff RN ED Triage Across the Room Chief Complaint : pt here with family states high blood pressure readings at home. and states multiple blacking out spells. states significant cardiac hx. states pressure on his chest Triage Date/Time : 03/13/2020 21:38 EDT Salty Wolff RN - 03/13/2020 21:38 EDT DCP GENERIC CODE Tracking Acuity : 2 - Emergent Tracking Group : [facility] ED Salty Wolff RN - 03/13/2020 21:38 EDT Mode of Arrival : Ambulatory Transported to ED by : Walk in To Room Via : Ambulate Accompanied By : Unaccompanied ED Vital Signs : Document Height & Weight : Document ED Allergies : Document ED Reason for Visit : Document Tetanus Immunization : Greater than 5 years Salty Wolff RN - 03/13/2020 21:38 EDT Infectious Disease History Has the patient ever been tested for COVID-19? : No, Patient stated COVID19 Screening : No Experiencing Infectious Disease Symptoms : No symptoms Physical contact outside [place] in the last 30 days : No Infectious Disease Symptoms Score : 0 Infectious Disease History : Influenza Tuberculosis Symptoms : None Salty Wolff RN - 03/13/2020 21:38 EDT Vital Signs ED Temperature Source : Oral Temperature Mode : Fahrenheit Temperature, Fahrenheit : 97.6 Deg F Clinical Temperature, C : 36.4 Deg C Oxygen Therapy Mode : Room air Peripheral Pulse Rate : 70 bpm Respiratory Rate : 18 Breaths/Min Systolic Blood Pressure : 155 mmHg (HI) Diastolic Blood Pressure : 77 mmHg Oxygen Saturation : 99 % Salty Wolff RN - 03/13/2020 21:38 EDT Allergy (As Of: 03/13/2020 21:44:26 EDT) Allergies (Active) No Known Allergies Estimated Onset Date: Unspecified ; Created By: CONSTANTIN DARDEN RN; Reaction Status: Active ; Category: Drug ; Substance: No Known Allergies ; Type: Allergy ; Updated By: CONSTANTIN DARDEN RN; Reviewed Date: 03/13/2020 21:40 EDT Diagnosis Control ED (As Of: 03/13/2020 21:44:26 EDT) Problems(Active) Allergic rhinitis (SNOMED CT :639297080 ) Name of Problem: Allergic rhinitis ; Recorder: CONSTANTIN DARDEN RN; Confirmation: Confirmed ; Classification: Patient Stated ; Code: [id number] ; Contributor System: ArantechChart ; Last Updated: 12/09/2014 8:09 EDT ; Life Cycle Date: 12/09/2014 ; Life Cycle Status: Active ; Vocabulary: SNOMED CT Angina (SNOMED CT :673279703 ) Name of Problem: Angina ; Recorder: CONSTANTIN DARDEN RN; Confirmation: Confirmed ; Classification: Patient Stated ; Code: [id number] ; Contributor System: ArantechChart ; Last Updated: 12/09/2014 8:09 EDT ; Life Cycle Date: 12/09/2014 ; Life Cycle Status: Active ; Vocabulary: SNOMED CT Arthritis (SNOMED CT :1510723 ) Name of Problem: Arthritis ; Recorder: CONSTANTIN DARDEN RN; Confirmation: Confirmed ; Classification: Patient Stated ; Code: 7293498 ; Contributor System: PowerChart ; Last Updated: 12/09/2014 8:11 EDT ; Life Cycle Date: 12/09/2014 ; Life Cycle Status: Active ; Vocabulary: SNOMED CT At risk for sleep apnea (IMO :94788433 ) Name of Problem: At risk for sleep apnea ; Recorder: SYSTEM, SYSTEM; Confirmation: Confirmed ; Classification: Medical ; Code: 83927750 ; Last Updated: 07/01/2019 3:39 EDT ; Life Cycle Date: 07/01/2019 ; Life Cycle Status: Active ; Vocabulary: IMO Cardiac arrhythmia (SNOMED CT :4291279677 ) Name of Problem: Cardiac arrhythmia ; Recorder: CONSTANTIN DARDEN RN; Confirmation: Confirmed ; Classification: Patient Stated ; Code: 3648537607 ; Contributor System: PowerChart ; Last Updated: 12/09/2014 8:10 EDT ; Life Cycle Date: 12/09/2014 ; Life Cycle Status: Active ; Vocabulary: SNOMED CT Coronary artery disease (SNOMED CT :9675556280 ) Name of Problem: Coronary artery disease ; Recorder: CONSTANTIN DARDEN RN; Confirmation: Confirmed ; Classification: Patient Stated ; Code: [id number] ; Contributor System: PowerChart ; Last Updated: 12/09/2014 8:09 EDT ; Life Cycle Date: 12/09/2014 ; Life Cycle Status: Active ; Vocabulary: SNOMED CT Hard of hearing (SNOMED CT :089447583 ) Name of Problem: Hard of hearing ; Recorder: CONSTANTIN DARDEN RN; Confirmation: Confirmed ; Classification: Patient Stated ; Code: 704827961 ; Contributor System: PowerChart ; Last Updated: 12/09/2014 8:08 EDT ; Life Cycle Date: 12/09/2014 ; Life Cycle Status: Active ; Vocabulary: SNOMED CT Hyperlipidemia (SNOMED CT :82073086 ) Name of Problem: Hyperlipidemia ; Recorder: CONSTANTIN DARDEN RN; Confirmation: Confirmed ; Classification: Patient Stated ; Code: 21996746 ; Contributor System: PowerChart ; Last Updated: 07/31/2017 13:39 EST ; Life Cycle Date: 12/09/2014 ; Life Cycle Status: Active ; Vocabulary: SNOMED CT Hypertension (SNOMED CT :81462498 ) Name of Problem: Hypertension ; Recorder: CONSTANTIN DARDEN RN; Confirmation: Confirmed ; Classification: Patient Stated ; Code: 78056511 ; Contributor System: [employer] [place] ; Last Updated: 12/09/2014 8:09 EDT ; Life Cycle Date: 12/09/2014 ; Life Cycle Status: Active ; Vocabulary: SNOMED CT Myocardial infarction (SNOMED CT :70476577 ) Name of Problem: Myocardial infarction ; Recorder: CONSTANTIN DARDEN RN; Confirmation: Confirmed ; Classification: Patient Stated ; Code: 66928042 ; Contributor System: ArantechChart ; Last Updated: 12/09/2014 8:11 EDT ; Life Cycle Date: 12/09/2014 ; Life Cycle Status: Active ; Vocabulary: SNOMED CT Renal calculi (SNOMED CT :806493834 ) Name of Problem: Renal calculi ; Recorder: CONSTANTIN DARDEN RN; Confirmation: Confirmed ; Classification: Patient Stated ; Code: 025237295 ; Contributor System: ArantechChart ; Last Updated: 12/09/2014 8:12 EDT ; Life Cycle Date: 12/09/2014 ; Life Cycle Status: Active ; Vocabulary: SNOMED CT Stented coronary artery (SNOMED CT :4372017514 ) Name of Problem: Stented coronary artery ; Recorder: CONSTANTIN DARDEN RN; Confirmation: Confirmed ; Classification: Patient Stated ; Code: 9869616704 ; Contributor System: ArantechChart ; Last Updated: 12/09/2014 8:09 EDT ; Life Cycle Date: 12/09/2014 ; Life Cycle Status: Active ; Vocabulary: SNOMED CT Diagnoses(Active) HTN - Hypertension Date: 03/13/2020 ; Diagnosis Type: Reason For Visit ; Confirmation: Complaint of ; Clinical Dx: HTN - Hypertension ; Classification: Medical ; Clinical Service: Emergency medicine ; Code: PNED ; Probability: 0 ; Diagnosis Code: [id number] ED Height and Weight Height Source : Stated Height Entry Format : [place]ott Height, Feet : 6 ft(Converted to: 183 cm, 72 Inch) Height, Inches : 0 Inch(Converted to: 0 ft 0 Inch, 0.00 cm) Clinical Height : 182.88 cm Weight Source, ED : Critical estimated dosing weight Weight Entry Format : [place]ott Weight, Pounds : 175 lb Clinical Dosing Weight : 79.55 kg Body Surface Area (BSA) : 2.01 m2 Body Mass Index : 23.8 kg/m2 [place] Body Weight (IBW) : 76.59 kg Salty Wolff RN - 03/13/2020 21:38 EDT Electronically signed by Angel [facility] Conversion Welding Tester Cerner at 12/20/2022 12:30 PM CDT documented in this encounter Plan of Treatment Not on file documented as of this encounter Visit Diagnoses Not on filedocumented in this encounter Care Teams Mobile Health Vehicle Operator Relationship Specialty Start Date End Date Allyson Avery APRN [address] [phone] PCP - General Nurse Practitioner 02/06/23 documented as of this encounter
--- OUTSIDE RECORDS SUMMARY | 2024-07-21 17:16 | XMS_ITS | Encounter Summary ---
Author Organization [facility] In iatives Address [address] [place] [address] Care Team Providers Care Plasterer Spray Gun Name Role Phone Allyson Avery APRN Primary Care Provider + [phone] Encounter Details Date Type Department Care Team (Late st Contact Info) Description 03/14/2020 Transcribed Document [facility] [place] Family Medicine [address] [place] [address] ProviderTatiana MD [address] [place] [address] [phone] Social History Tobacco Use Types Packs/Day Years Used Date Smoking Tobacco: Never Assessed Sex and Gender Information Value Date Recorded Sex Assigned at Not on file Legal Sex Male 5:33 PM CDT Gender Identity Not on file Sexual Orientation Not on file documented as of this encounter Miscellaneous Notes * Cerner Conversion Note - Tatiana ProviderMD - 03/14/2020 9:53 AM CDT ED Discharge Entered On: 03/14/2020 9:53 EDT Performed On: 03/14/2020 9:53 EDT by Nancy Brandon RN Discharge Process Patient Disposition : Admit/Observe Personal Belongings With Patient : Yes IV Discontinued : No Nursing Documentation Completed : Yes Nancy Brandon RN - 03/14/2020 9:53 EDT Admission, ED Nurse Report Accepted By : Peace PINEDO `Nurse Report (Hand Off) : Called Accompanied By, Discharge : Daughter Mode Of Departure : Stretcher Nancy Brandon RN - 03/14/2020 9:53 EDT Electronically signed by Angel [facility] Conversion Electrical Appliance Repairer Cerner at 12/20/2022 12:13 PM CDT documented in this encounter Plan of Treatment Not on file documented as of this encounter Visit Diagnoses Not on filedocumented in this encounter Care Teams Plasterer Spray Gun Relationship Specialty Start Date End Date Allyson Avery, [place] [address] [place] [phone] PCP - General Nurse Practitioner 02/06/23 documented as of this encounter
--- OUTSIDE RECORDS SUMMARY | 2024-07-21 17:16 | XMS_ITS | Encounter Summary ---
Author Organization [facility] Address [address] [place] [address] Care Team Providers Care Pan Operator Name Role Phone Allyson Avery YOKO Primary Care Provider + [phone] Encounter Details Date Type Department Care Team (Late st Contact Info) Description 03/13/2020 Transcribed Document [facility] [place] Family Medicine [address] [place] [id number] ProviderTatiana MD [address] [place] [address] [phone] Social History Tobacco Use Types Packs/Day Years Used Date Smoking Tobacco: Never Assessed Sex and Gender Information Value Date Recorded Sex Assigned at Not on file Legal Sex Male 5:33 PM CDT Gender Identity Not on file Sexual Orientation Not on file documented as of this encounter Miscellaneous Notes * Cerner Conversion Note - Tatiana ProviderMD - 03/13/2020 9:55 PM CDT Patient: PAT MENCHACA Age: 79 years Sex: Male : 1940 Associated Diagnoses: Near syncope possible TIA; Elevated troponin Author: BEVERLEY SWIFT PA-C Basic Information Time seen: Date & time 03/13/2020 21:38:00. History source: Patient. Arrival mode: Private vehicle. History limitation: None. Additional information: Chief Complaint from Nursing Triage Note : Chief Complaint 03/13/2020 21:38 EDT Chief Complaint pt here with family states high blood pressure readings at home. and states multiple blacking out spells. states significant cardiac hx. states pressure on his chest . History of Present Illness The patient presents with near syncope. The onset was just prior to arrival. The course/duration of symptoms is improving. The location where the incident occurred was Patient reports he had 2-3 spell since 7pm of feeling like he might pass out. He felt some chest palpitations of pacemaker pacing and some chest tightness. He had altered vision like things were moving and he felt confused. He felt off balance like he would fall. He reports currently he feels ok. He did not have slurred speech, no focal weakness, no numbness or tingling. Daughter checked bp and it had systolic above 300 and then would not take it. Concerned it was elevated blood pressure causing symptoms. . The exacerbating factor is none. The relieving factor is none. Risk factors consist of coronary artery disease, hypertension and age. Prior episodes: none. Therapy today: none. Preceding symptoms: lightheaded, palpitations vision change. Associated symptoms: chest pain, denies abdominal pain, denies nausea, denies vomiting, denies fever, denies chills, denies shortness of breath, denies headache and denies dizziness. Associated injury to the none. Additional history: He has been on tractor today but it has AC.. Review of Systems Constitutional symptoms: Negative except as documented in HPI. Skin symptoms: Negative except as documented in HPI. Eye symptoms: Negative except as documented in HPI. ENMT symptoms: Negative except as documented in HPI. Respiratory symptoms: Negative except as documented in HPI. Cardiovascular symptoms: Chest pain, palpitations. Gastrointestinal symptoms: Negative except as documented in HPI. Genitourinary symptoms: Negative except as documented in HPI. Musculoskeletal symptoms: Negative except as documented in HPI. Neurologic symptoms: Weakness. Psychiatric symptoms: Negative except as documented in HPI. Endocrine symptoms: Negative except as documented in HPI. Hematologic/Lymphatic symptoms: Negative except as documented in HPI. Allergy/immunologic symptoms: Negative except as documented in HPI. Additional review of systems information: All other systems reviewed and otherwise negative. Health Status Allergies: Allergic Reactions (Selected) No Known Allergies. Past Medical/ Family/ Social History Medical history Reviewed as documented in chart. Surgical history: coronary stents in 2014 at 74 Years. cardiac catheterization in 2015 at 74 Years. Polyp removal surgery in 2013 at 73 Years. left arm surgery in 2003 at 63 Years. CABG in 1996 at 56 Years.. Family history: No family history items have been selected or recorded.. 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 Highest education: High school Hazardous equipment operation: Yes Work hazards: Heavy lifting/twisting Exercise 12/28/2015 Duration (average number of minutes): 0 Home/Environment 12/28/2015 Lives with: Spouse Living situation: Home/Independent Alcohol abuse in household: No Substance abuse in household: No Smoker in household: No Injuries/Abuse/Neglect in household: No Feels unsafe at home: No Safe place to go: Yes Agency(s)/Others notified: No Family/Friends available to help: Yes Concern for family members at home: No Major illness in household: Yes Financial concerns: No Nutrition/Health 12/28/2015 Diet description: several teeth removed in the last 6 months and having difficulty chewing Type of diet: Regular Caffeine intake amount: none Sexual 12/28/2015 Sexually active: No Substance Abuse 12/28/2015 Recreational Drug Use History No Recreational Drug Use Last 12 Months No Tobacco 12/28/2015 Tobacco Use Within Last Twelve Months No Smoking Status Never smoker Second Hand Smoke Exposure No Tobacco Use/Smoking Within Last 30 Days No 07/01/2019 Smoking Status Never (less than 100 in l Smokeless Tobacco Status Never Smokeless Tobacco Use History None . Problem list: Active Problems (12) Allergic rhinitis Angina Arthritis At risk for sleep apnea Cardiac arrhythmia Coronary artery disease Hard of hearing Hyperlipidemia Hypertension Myocardial infarction Renal calculi Stented coronary artery . Physical Examination Vital Signs Vital Signs/Vital Measures 03/13/2020 21:38 EDT Systolic Blood Pressure 155 mmHg HI Diastolic Blood Pressure 77 mmHg Temperature Source Oral Temperature Mode Fahrenheit Temperature, Fahrenheit 97.6 Deg F Clinical Temperature, C 36.4 Deg C Peripheral Pulse Rate 70 bpm Respiratory Rate 18 Breaths/Min Oxygen Saturation 99 % Oxygen Therapy Mode Room air . Measurements 03/13/2020 21:38 EDT Height Source Stated Height Entry Format [place] Height/Length, FINNISH (ft) 6 ft Height/Length FINNISH 0 Inch CLINICALHEIGHT 182.88 cm [place] Body Weight 76.59 kg Weight Source, ED Critical estimated dosing weight Weight Entry Format [place] Weight Spanish lb 175 lb CLINICALWEIGHT 79.55 kg Body Surface Area (BSA) 2.01 m2 Body Mass Index 23.8 kg/m2 . Oxygen Saturation 03/13/2020 21:38 EDT Oxygen Saturation 99 % . General: Alert, no acute distress. Skin: Warm, dry, pink. Head: Normocephalic. Neck: Supple. Eye: Pupils are equal, round and reactive to light, extraocular movements are intact, normal conjunctiva. Ears, nose, mouth and throat: Oral mucosa moist. Cardiovascular: Regular rate and rhythm, No murmur, Normal peripheral perfusion, No edema. Respiratory: Lungs are clear to auscultation, respirations are non-labored, breath sounds are equal. Chest wall: No tenderness, No deformity. Back: Nontender, Normal range of motion, Normal alignment, no step-offs. Musculoskeletal: Normal ROM, normal strength, no tenderness, no swelling. Gastrointestinal: Soft, Nontender, Non distended. Neurological: Alert and oriented to person, place, time, and situation, normal motor observed, normal speech observed, normal coordination observed. Psychiatric: Cooperative, appropriate mood & affect, normal judgment. Medical Decision Making Differential Diagnosis: Near syncope, dysrhythmia, anxiety, transient ischemic attack. Rationale: Pacemaker evaluated and nothing abnormal today. . Documents reviewed: Emergency department nurses' notes, emergency department records, prior records. Orders Include Previous Orders (Selected) Inpatient Orders Ordered Cardiac Monitoring: ED Fall Risk Documented: EKG: Pulse Oximetry Continuous Monitoring: Ordered (Collected) CBC w/ Auto Diff: CMP Comprehensive Metabolic Panel: Lactic Acid Level with Reflex if Indicated: Magnesium Level: ProBNP: Troponin I Ultra: Urinalysis w Culture if Indicated: Ordered (Exam Ordered) CR Chest 1 Vw Portable: CT Head WO: Completed ED Adult Fall Risk Assessment: ED Adult Triage: ED C-SSRS: ED Clinical Reconciliation: ED service desk analyst: Saline Lock Insert: . Electrocardiogram: Time 03/13/2020 21:42:00, rate 55, No ST changes, no ectopy, normal [place] & QRS intervals, EP Interp, The Rhythm is paced. . Results review: All Results 03/13/2020 22:00 EDT Sodium Level 140 mmol/L Potassium Level 5.0 mmol/L (Modified) Chloride Level 104 mmol/L Carbon Dioxide Level 30 mmol/L Anion Gap 11 Glucose Level 129 mg/dL HI Blood Urea Nitrogen 24 mg/dL HI Creatinine Level 1.20 mg/dL eGFR >60 mL/min/1.73m2 eGFR NonAfrican 58 mL/min/1.73m2 LOW Bun/Creatinine 20.0 Calcium Level 9.4 mg/dL Protein Total 7.6 Gram/dL Albumin Level 3.8 Gram/dL Globulin 3.8 Gram/dL A/G Ratio 1.0 LOW Bilirubin Total 0.6 mg/dL Alk Phos 78 Units/Liter AST 42 Units/Liter HI ALT 34 Units/Liter Magnesium Level 1.9 mg/dL Lactic Acid Level 1.5 mmol/L Troponin I Ultra 0.074 ng/mL HI ProBNP 377 pg/mL WBC 4.8 K/uL RBC 4.15 Million/uL LOW Hgb 14.0 g/dL Hct 41.6 % MCV 100.2 fL HI MCH 33.7 pg HI MCHC 33.7 Gram/dL Platelet Count 169 K/uL MPV 9.8 fL RDW 11.8 % Neut % 57.0 % Neut # 2.76 K/uL Lymph % 26.8 % Lymph # 1.30 x10(3)/uL [place] % 10.5 % HI [place] # 0.51 K/uL Eos % 4.1 % Eos # 0.20 x10(3)/uL Baso % 1.2 % Baso # 0.06 x10(3)/uL Slide Review No IG# 0.02 x10(3)/uL IG% 0.40 % Urine Type. U CleanCatch Urine Color Yellow Urine Appearance Clear Urine Specific [place] 1.021 Urine pH Dipstick 6.5 Urine Leukocyte Esterase Negative Urine Nitrite Negative Urine Protein Dipstick Negative Urine Glucose Dipstick Negative Urine Ketones Dipstick Negative Urine Urobilinogen Dipstick 0.2 EU/dL Urine Bilirubin Dipstick Negative Urine Blood Dipstick Negative Ur Mucous Trace . Radiology results: Radiology Results (Last 48 hours) [id number] -- 03/13/2020 21:29 CT Head WO (03/13/2020 22:14) Result: HEAD CT 03/13/2020 9:51 PM HISTORY: Headache.COMPARISON: None.TECHNIQUE: Multiple axial CT images were performed from the foramenmagnum to the vertex. This study was performed with techniques to keepradiation doses as low as reasonably achievable, (ALARA). Individualizeddose reduction techniques using automated exposure control or adjustmentof mA and/or kV according to the patient size were employed. FINDINGS: The ventricles are enlarged. There is diffuse atrophy. Thereis no evidence of hemorrhage. No masses are identified. No extra-axialfluid is seen. The sinuses are normal. There is encephalomalacia in themedial left occipital lobe.IMPRESSION: No acute intracranial process. Images reviewed, interpreted, and dictated by Tameka Root MD CR Chest 1 Vw Portable (03/13/2020 22:26) Result: PORTABLE CHEST 03/13/2020 9:51 PM HISTORY: Precordial chest pain.COMPARISON: June 2019.FINDINGS: The heart is normal in size . The mediastinum isunremarkable . The patient is status post median sternotomy . Thelungs are clear . There is no pneumothorax . The osseous structures are unremarkable . A pacemaker overlies the left chest.IMPRESSION: No acute cardiopulmonary process . Continued follow-up is recommended .Images reviewed, interpreted, and dictated by Tameka Root MD . Reexamination/ Reevaluation Time: 03/13/2020 22:47:00 . Course: well controlled. Impression and Plan Diagnosis Near syncope possible TIA - Admitting, Emergency medicine, Medical Palpitations - Admitting, Emergency medicine, Medical Elevated troponin - Admitting, Emergency medicine, Medical Calls-Consults - 03/13/2020 22:40:00 , ROM[facility] Plan Condition: Stable. Orders: Launch Orders Admit/Transfer/Discharge: Admit to Inpatient (Order): Start: 03/13/2020 22:50 EDT, Admit reason: near syncope/TIA/elevated troponin,palpitations, Estimated length of stay 2 Midnights or LONGER, Level of Care: Med-Surg with telemetry, Admitting: ROMAN NGUYEN MD-INT. Notes: I certify that the MLP/BONE PULLER performed the services as delegated. , Discussed with Dr. Abel and agrees with plan of care.. documented in this encounter Plan of Treatment Not on file documented as of this encounter Visit Diagnoses Not on filedocumented in this encounter Care Teams Pan Operator Relationship Specialty Start Date End Date Allyson Avery APRN [address] [facility] [address] [place] [id number] PCP - General Nurse Practitioner 02/06/23 documented as of this encounter
--- OUTSIDE RECORDS SUMMARY | 2024-07-21 17:16 | XMS_ITS | Encounter Summary ---
Author Organization [facility] Address [address] [place] [address] Care Team Providers Care Stunt Performer Name Role Phone Unavailable Primary Care Provider Gillian e Encounter Details Date Type Department Care Team (Late st Contact Info) Description 03/23/2020 Historic Encounter [address] [phone] ProviderBelle Historical Social History Tobacco Use Types Packs/Day Years Used Date Smoking Tobacco: Never Assessed Sex and Gender Information Value Date Recorded Sex Assigned at Not on file Legal Sex Male 5:33 PM CDT Gender Identity Not on file Sexual Orientation Not on file documented as of this encounter Plan of Treatment Not on file documented as of this encounter Procedures Procedure Name Priority Date/Time Associated Diagnosis Comments CHEM8+ POC Routine 03/23/2020 3:49 PM EDT documented in this encounter Results * Chem8+ POC (03/23/2020 3:49 PM EDT) Sodium POC 141 138 - 146 mmol/L 03/23/2020 7:49 PM EDT [facility] Potassium POC 4.1 3.5 - 4.9 mmol/L 03/23/2020 7:49 PM EDT [facility] Chloride POC 100 98 - 109 mmol/L 03/23/2020 7:49 PM EDT [facility] CO2 POC 28.0 24.0 - 29.0 mmol/L 03/23/2020 7:49 PM EDT [facility] Anion Gap POC 18.0 10.0 - 20.0 mmol/L 03/23/2020 7:49 PM EDT [facility] Ca Ionized POC 1.26 1.12 - 1.32 mmol/L 03/23/2020 7:49 PM EDT [facility] Glucose POC 89 70 - 105 mg/dL 03/23/2020 7:49 PM EDT [facility] BUN POC 15 8 - 26 mg/dL 03/23/2020 7:49 PM EDT [facility] Creatinine POC 0.9 0.6 - 1.3 mg/dL 03/23/2020 7:49 PM EDT [facility] eGFR 98 >=60 mL/min/1. 73m2 03/23/2020 8:00 PM EDT [facility] eGFR NonAfrican 81 >=60 mL/min/1. 73m2 03/23/2020 8:00 PM EDT [facility] Hemoglobin POC 13.3 12.0 - 17.0 Gram/dL 03/23/2020 7:49 PM EDT [facility] Hematocrit POC 39.0 38.0 - 51.0 % 03/23/2020 7:49 PM EDT [facility] Photo Engraver [id number] 03/23/2020 7:49 PM EDT [facility] Device SN [id number] 03/23/2020 7:49 PM EDT [facility] Blood 03/23/2020 3:49 PM EDT 03/23/2020 8:00 PM EDT Sle Historical Provider POINT OF CARE TEST ALEX VILLATORO Final Result [facility] [address] [phone] documented in this encounter Visit Diagnoses Not on filedocumented in this encounter
--- OUTSIDE RECORDS SUMMARY | 2024-07-21 17:16 | XMS_ITS | Encounter Summary ---
Author Organization [facility] Address [address] [place] [address] Care Team Providers Care Home Care And Home Health Aides Teacher Name Role Phone AverylAlyson la YOKO Primary Care Provider + [phone] Encounter Details Date Type Department Care Team (Late st Contact Info) Description 03/23/2020 Transcribed Document [facility] [place] Family Medicine [address] [place] [id number] ProviderTatiana MD [address] [place] [address] [phone] Social History Tobacco Use Types Packs/Day Years Used Date Smoking Tobacco: Never Assessed Sex and Gender Information Value Date Recorded Sex Assigned at Not on file Legal Sex Male 5:33 PM CDT Gender Identity Not on file Sexual Orientation Not on file documented as of this encounter Miscellaneous Notes * Cerner Conversion Note - Tatiana ProviderMD - 03/23/2020 5:55 PM CDT Nursing Discharge Summary Entered On: 03/23/2020 17:56 EDT Performed On: 03/23/2020 17:55 EDT by JACE WOOD RN Discharge Documentation Discharge Date/Time : 03/23/2020 18:30 EDT Patient Disposition, General : Discharge Discharge To : Home with ambulatory/outpatient follow-up Mode Of Departure, General Discharge : Private vehicle, Wheelchair Accompanied By, Discharge : Daughter IV Discontinued : Yes Personal Belongings With Patient : No Pt's Own Supply of Medications Returned : Yes Prescriptions Given to Patient : No Medications Given to Patient : No Discharge Instructions Reviewed With, Opportunity For Questions Given : Patient, Daughter Patient Education Completed : Yes Teaching Method : Demonstration, Explanation Teaching Evaluation : Returns demonstration JACE WOOD RN - 03/23/2020 17:55 EDT Electronically signed by Angel, [facility] Conversion Electrical Lineman Cerner at 12/20/2022 12:30 PM CDT documented in this encounter Plan of Treatment Not on file documented as of this encounter Visit Diagnoses Not on filedocumented in this encounter Care Teams Home Care And Home Health Aides Teacher Relationship Specialty Start Date End Date Allyson Avery, WEIGHT REDUCING TECHNICIAN [address] [facility] [address] [place] [phone] PCP - General Nurse Practitioner 02/06/23 documented as of this encounter
--- OUTSIDE RECORDS SUMMARY | 2024-07-21 17:16 | XMS_ITS | Encounter Summary ---
Author Organization [facility] Address [address] [place] [address] Care Team Providers Care Engineering Laboratory Technician Name Role Phone Bennie Allyson YOKO Primary Care Provider + [phone] Reason for Visit * Reason Comments Establish Care * Consultation (Routine) - Closed Specialty Diagnoses / Procedures Referred By Venancio milian Referred To Contact Cardiology Diagnoses Establishing care with new doctor, encounter for Referring, [place] [address] Mansoor Silva MD [address] [place] [address] Phone: tel: fax: Referral ID Status Reason Start Date Expiration Date Visits Re quested Visits Authorized [id number] Closed 02/10/2021 02/10/2022 1 1 Encounter Details Date Type Department Care Team (Late st Contact Info) Description 03/17/2021 1:15 PM EDT Office Visit [facility] [address] [place] [phone] Mansoor Silva MD [address] [place] [address] Coronary artery disease of bypass graft of [place] heart with stable angina pectoris (Primary Dx); Essential hypertension; Hyperlipidemia LDL goal <70; Hypothyroidism (acquired); SSS (sick sinus syndrome) Social History Tobacco Use Types Packs/Day Years [...] Sign Reading Time Taken Comments Blood Pressure 120/68 03/17/2021 1:05 PM EDT Pulse 70 03/17/2021 1:05 PM EDT Temperature - - Respiratory Rate - - Oxygen Saturation 97% 03/17/2021 1:05 PM EDT Inhaled Oxygen Concentration - - Weight 73.9 kg (163 lb) 03/17/2021 1:05 PM EDT Height 176.5 cm (5' 9.5 ) 03/17/2021 1:05 PM EDT Body Mass Index 23.73 03/17/2021 1:05 PM EDT documented in this encounter Progress Notes * Mansoor Silva MD - 03/17/2021 1:15 PM EDTAssociated Order(s): ECG 12 Lead Post-Procedure Diagnose(s): Coronary artery disease of bypass graft of [place] heart with stable angina pectoris OFFICE VISIT NOTE [facility] Name: Mario Menchaca Date: 03/17/2021 : 1940 REFERRING/PRIMARY PROVIDER: Allyson vAery APRN Chief Complaint Patient presents with ??? Establish Care HPI: Mario Menchaca is a 80 y.o. male who presents today for new consultation to establish care with history of CAD, ischemic cardiomyopathy, [place] Ramana ICD. Associate history of diabetes mellitus, hypertension, hyperlipidemia. History of CABG, I performed PCI of SVG-OM 10/2016 at [facility], as well as PCI of the MONROY-LAD anastomosis with a 2.5 x 60 mm Synergy EMANUEL, 06/2017, occluded SVG-PDA and [place] RCA, patent SVG-OM. Dual-chamber pacemaker upgraded to ICD [place] [address] Will Pérez, he sufferedtwo inappropriate shocks, found to have loose set screw which was repaired 03/2020. EF 35-40%. Doing well from cardiovascular standpoint, stays busy, denies chest pain shortness of breath PND ororthopnea. No palpitations no ICD discharges. Past Medical History: Diagnosis Date ??? Arthritis ??? Diabetes (CMS/HCC) ??? Gout ??? Hyperlipidemia ??? Hypertension ??? Kidney stones Past Surgical History: Procedure Laterality Date ??? FOREARM SURGERY ??? WRIST SURGERY Social History Socioeconomic History ??? Marital status: Spouse name: Not on file ??? Number of children: Not on file ??? Years of education: Not on file ??? Highest education level: Not on file Tobacco Use ??? Smoking status: Never Smoker ??? Smokeless tobacco: Never Used Substance and Sexual Activity ??? Alcohol use: Not Currently ??? Drug use: Never ??? Sexual activity: Defer Family History Problem Relation Age of Onset ??? No Known Problems Sister ROS: Constitutional no fever, no weight loss Skin no rash, no subcutaneous nodules Otolaryngeal no difficulty swallowing Cardiovascular See HPI Pulmonary no cough, no sputum production Gastrointestinal no constipation, no diarrhea Genitourinary no dysuria, no hematuria Hematologic no easy bruisability, no abnormal bleeding Musculoskeletal no muscle pain Neurologic no dizziness, no falls No Known Allergies Current Outpatient Medications: ??? allopurinol (ZYLOPRIM) 100 MG tablet, Take 100 mg by mouth Daily., Disp: , Rfl: ??? aspirin 81 MG EC tablet, Take 81 mg by mouth Daily., Disp: , Rfl: ??? carvedilol (COREG) 25 MG tablet, Take 25 mg by mouth 2 (Two) Times a Day With Meals., Disp: , Rfl: ??? Cascara Iwkacde-Zxxit-Yky Lax ([facility] COLON CLEANSER PO), Take 1 tablet by mouth Daily., Disp: ,Rfl: ??? clopidogrel (PLAVIX) 75 MG tablet, Take 75 mg by mouth Daily., Disp: , Rfl: ??? Coenzyme Q10 (COQ10 PO), Take 400 mg by mouth Daily., Disp: , Rfl: ??? colesevelam (WELCHOL) 625 MG tablet, Take 1,875 mg by mouth 2 (Two) Times a Day With Meals. 1 tablet in the morning and 2 tablets in the evening, Disp: , Rfl: ??? Docusate Calcium (STOOL SOFTENER PO), Take 300 mg by mouth Daily., Disp: , Rfl: ??? L-ARGININE PO, Take [...] a day., Disp: , Rfl: ??? multivitamin (MULTI-VITAMIN PO), Take 1 tablet by mouth 2 (two) times a day., Disp: , Rfl: ??? Drain-3 Fatty Acids (FISH OIL PO), Take 2,400 mg by mouth 2 (two) times a day., Disp: , Rfl: ??? ranolazine (RANEXA) 500 MG 12 hr tablet, Take 500 mg by mouth 2 (Two) Times a Day., Disp: , Rfl: ??? rosuvastatin (CRESTOR) 40 MG tablet, Take 40 mg by mouth Daily., Disp: , Rfl: ??? Unable to find, 1 each 1 (One) Time. Med Name: cognium I tablet once daily, Disp: , Rfl: Vitals: 03/17/21 1305 BP: 120/68 BP Location: Right arm Patient Position: Sitting Pulse: 70 SpO2: 97% Weight: 73.9 kg (163 lb) Height: 176.5 cm (69.5 ) Body mass index is 23.73 kg/m??. PHYSICAL EXAM: General Appearance: ?? well developed ?? well nourished HENT: ?? oropharynx moist ?? lips not cyanotic Neck: ?? thyroid not enlarged ?? supple [...] pulses normal ?? lower extremity edema: none Gastrointestinal: ?? bowel sounds normal ?? non-tender ?? no hepatomegaly, no splenomegaly Musculoskeletal: ?? no clubbing of fingers. ?? normocephalic, head atraumatic Skin: ?? warm, dry Psychiatric: ?? judgement and insight appropriate ?? normal mood and affect RESULTS: ECG 12 Lead Date/Time: 03/17/2021 1:32 PM Performed by: Mansoor Silva MD Authorized by: Mansoor Silva MD Comparison: not compared with previous ECG Previous ECG: no previous ECG available Rhythm: paced QRS axis: normal Clinical impression: abnormal EKG Comments: Atrial sensed ventricular paced DEVICE INTERROGATION: Dual-chamber Saint Ramana ICD, Interrogation date 03/17/21 - RA pacing 92%, RV pacing 97%. P wave is 4.8 mV with a threshold of 0.62 V at 0.5 msec and an impedance of 400 ohms. R wave is 12 mV with a threshold of 0.75 V at 0.5 msec and an impedance of 390 ohms. Battery voltage is 81%, 5.8 years, HV impedance 68. Charge time 7.4 no arrhythmia.. Labs: CMP 01/03/21 Glucose 141 H BUN 28 H Creatinine 0.97 Glomerular Filtration Rate 73 BUN/Creatinine Ratio 29 H Sodium 141 Potassium 4.8 Carbon Dioxide 21 Calcium 9.6 AST 33 ALT 26 LIPID PANEL 01/03/21 Total 136 Triglycerides <45 HDL 43 LDL N/A TSH 1.040 HGB A1C 6.3 PSA 0.8 Most recent PCP note, imaging tests, and labs reviewed. ASSESSMENT: Problem List Items Addressed This Visit Cardiac and Vasculature Coronary artery disease of bypass graft of [place] heart with stable angina pectoris (CMS/HCC) - Primary Overview 10/12/16 [facility]: Significant stenosis in the SVG to OM2/3 [...] to D1 & OM2, SVG to RCA. Relevant Medications carvedilol (COREG) 25 MG tablet ranolazine (RANEXA) 500 MG 12 hr tablet clopidogrel (PLAVIX) 75 MG tablet Hyperlipidemia LDL goal <70 Relevant Medications colesevelam (WELCHOL) 625 MG tablet rosuvastatin (CRESTOR) 40 MG tablet Essential hypertension Relevant Medications carvedilol (COREG) 25 MG tablet lisinopril (PRINIVIL,ZESTRIL) 20 MG tablet SSS (sick sinus syndrome) ([facility]) Overview 03/16/20 Upgrade of his dual-chamber pacemaker to [facility] dual-chamber ICD Relevant Medications carvedilol (COREG) 25 MG tablet ranolazine (RANEXA) 500 MG 12 hr tablet clopidogrel (PLAVIX) 75 MG tablet Endocrine and Metabolic Hypothyroidism (acquired) Relevant Medications carvedilol (COREG) 25 MG tablet levothyroxine (SYNTHROID, LEVOTHROID) 75 MCG tablet PLAN: 1. CAD: Continue aspirin, Plavix, rosuvastatin, and carvedilol Asymptomatic currently Continue exercise 2. Chronic systolic heart failure: Continue carvedilol and lisinopril at current doses NYHA I-two symptoms Saint Ramana ICD in place 3. Presence of [place] Ramana ICD: Interrogation today shows normal parameters and function Continue in office interrogation every 6-9 months Remote interrogations every 3 months Four. Hypertension: Home blood pressures running 120 240 systolic Continue current medical therapy. Five. Hyperlipidemia: Goal LDL less than 70 Continue high intensity statin therapy with rosuvastatin 40. Advance Care Planning ACP discussion was held with the patient during this visit. Patient has an advance directive (not in EMR), copy requested. Return to clinic in 6 months, or sooner as needed. Thank you for the opportunity to share in the care of your patient; please do not hesitate to call me with any questions. Mansoor Silva MD, [facility] Office: [facility] [place] [address] 03/17/21 documented in this encounter Plan of Treatment Upcoming Encounters Date Type Department Care Team (Late st Contact Info) Description 11/12/2024 2:15 PM EDT Office Visit [facility] [address] [facility] [address] [place] [address] Mansoor Silva MD [address] [facility] [address] [place] [address] 01/21/2025 2:30 PM EDT Office Visit [facility] [address] [facility] [address] [place] [address] Monica Quintero, SAMUEL, CLOTHING MAN [address] [place] [address] documented as of this encounter Procedures Procedure Name Priority Date/Time Associated Diagnosis Comments ECG 12-LEAD Routine 03/17/2021 Coronary artery disease of bypass graft of [place] heart with stable angina pectoris documented in this encounter Results * ECG 12-LEAD (03/17/2021) Narrative 03/17/2021 Mansoor Silva MD ? 03/17/2021 ??1:36 PM ECG 12 Lead Date/Time: 03/17/2021 1:32 PM Performed by: Mansoor Silva MD Authorized by: Mansoor Silva MD Comparison: not compared with previous ECG Previous ECG: no previous ECG available Rhythm: paced QRS axis: normal Clinical impression: abnormal EKG Comments: Atrial sensed ventricular paced Procedure Note Mansoor Silva MD - 03/17/2021 1:15 PM EDT OFFICE VISIT NOTE [facility] Name: Mario Menchaca Date: 03/17/2021 : 1940 REFERRING/PRIMARY PROVIDER: Allyson Avery APRN Chief Complaint Patient presents with ? ? Establish Care HPI: Mario Menchaca is a 80 y.o. male who presents today for newconsultation to establish care with history of CAD, ischemiccardiomyopathy, [place] Ramana ICD. Associate history of diabetes mellitus,hypertension, hyperlipidemia. History of CABG, I performed PCI of SVG-OM10/2016 at [facility], as well as PCI of the MONROY-LAD anastomosis with a 2.5 x 60mm Synergy EMANUEL, 06/2017, occluded SVG-PDA and [place] RCA, patent SVG-OM.Dual-chamber pacemaker upgraded [place] [address] Will Pérez, hesuffered two inappropriate shocks, found to have loose set screw which wasrepaired 03/2020. EF 35-40%. Doing well from cardiovascular standpoint, stays busy, denies chest painshortness of breath PND or orthopnea. No palpitations no ICDdischarges. Past Medical History: Diagnosis Date ? ? Arthritis ? ? Diabetes (CMS/HCC) ? ? Gout ? ? Hyperlipidemia ? ? Hypertension ? ? Kidney stones Past Surgical History: Procedure Laterality Date ? ? FOREARM SURGERY ? ? WRIST SURGERY Social History Socioeconomic History ? ? Marital status: Spouse name: Not on file ? ? Number of children: Not on file ? ? Years of education: Not on file ? ? Highest education level: Not on file Tobacco Use ? ? Smoking status: Never Smoker ? ? Smokeless tobacco: Never Used Substance and Sexual Activity ? ? Alcohol use: Not Currently ? ? Drug use: Never ? ? Sexual activity: Defer Family History Problem Relation Age of Onset ? ? No Known Problems Sister ROS: Constitutional no fever, no weight loss Skin no rash, no subcutaneous nodules Otolaryngeal no difficulty swallowing Cardiovascular See HPI Pulmonary no cough, no sputum production Gastrointestinal no constipation, no diarrhea Genitourinary no dysuria, no hematuria Hematologic no easy bruisability, no abnormal bleeding Musculoskeletal no muscle pain Neurologic no dizziness, no falls No Known Allergies Current Outpatient Medications: ? ? allopurinol (ZYLOPRIM) 100 MG tablet, Take 100 mg by mouth Daily.,Disp: , Rfl: ? ? aspirin 81 MG EC tablet, Take 81 mg by mouth Daily., Disp: , Rfl: ? ? carvedilol (COREG) 25 MG tablet, Take 25 mg by mouth 2 (Two) Times aDay With Meals., Disp: , Rfl: ? ? Cascara Lutzdoo-Hcotq-Hgs Lax ([facility] COLON CLEANSER PO), Take 1 tabletby mouth Daily., Disp: , Rfl: ? ? clopidogrel (PLAVIX) 75 MG tablet, Take 75 mg by mouth Daily., Disp: ,Rfl: ? ? Coenzyme Q10 (COQ10 PO), Take 400 mg by mouth Daily., Disp: , Rfl: ? ? colesevelam (WELCHOL) 625 MG tablet, Take 1,875 mg by mouth 2 (Two)Times a Day With Meals. 1 tablet in the morning and 2 tablets in theevening, Disp: , Rfl: ? ? Docusate Calcium (STOOL SOFTENER PO), Take 300 mg by mouth Daily.,Disp: , Rfl: ? ? L-ARGININE PO, Take 1 tablet by mouth Daily., Disp: , Rfl: ? ? levothyroxine (SYNTHROID, LEVOTHROID) 75 MCG tablet, Take 75 mcg bymouth Daily., Disp: , Rfl: ? ? lisinopril (PRINIVIL,ZESTRIL) 20 MG tablet, Take 20 mg by mouth Daily.,Disp: , Rfl: ? ? Methylsulfonylmethane (MSM PO), Take 1,000 mg by mouth 2 (two) times aday., Disp: , Rfl: ? ? multivitamin (MULTI-VITAMIN PO), Take 1 tablet by mouth 2 (two) times aday., Disp: , Rfl: ? ? Drain-3 Fatty Acids (FISH OIL PO), Take 2,400 mg by mouth 2 (two) timesa day., Disp: , Rfl: ? ? ranolazine (RANEXA) 500 MG 12 hr tablet, Take 500 mg by mouth 2 (Two)Times a Day., Disp: , Rfl: ? ? rosuvastatin (CRESTOR) 40 MG tablet, Take 40 mg by mouth Daily., Disp:, Rfl: ? ? Unable to find, 1 each 1 (One) Time. Med Name: cognium I tablet oncedaily, Disp: , Rfl: Vitals: 03/17/21 1305 BP: 120/68 BP Location: Right arm Patient Position: Sitting Pulse: 70 SpO2: 97% Weight: 73.9 kg (163 lb) Height: 176.5 cm (69.5 ) Body mass index is 23.73 kg/m??. PHYSICAL EXAM: General Appearance: ?? well developed ?? well nourished HENT: ?? oropharynx moist ?? lips not cyanotic Neck: ?? thyroid not enlarged ?? supple [...] pulses normal ?? lower extremity edema: none Gastrointestinal: ?? bowel sounds normal ?? non-tender ?? no hepatomegaly, no splenomegaly Musculoskeletal: ?? no clubbing of fingers. ?? normocephalic, head atraumatic Skin: ?? warm, dry Psychiatric: ?? judgement and insight appropriate ?? normal mood and affect RESULTS: ECG 12 Lead Date/Time: 03/17/2021 1:32 PM Performed by: Mansoor Silva MD Authorized by: Mansoor Silva MD Comparison: not compared with previous ECG Previous ECG: no previous ECG available Rhythm: paced QRS axis: normal Clinical impression: abnormal EKG Comments: Atrial sensed ventricular paced DEVICE INTERROGATION: Dual-chamber Saint Ramana ICD, Interrogation date03/17/21 - RA pacing 92%, RV pacing 97%. P wave is 4.8 mV with a threshold of 0.62 Vat 0.5 msec and an impedance of 400 ohms. R wave is 12 mV with a thresholdof 0.75 V at 0.5 msec and an impedance of 390 ohms. Battery voltage is81%, 5.8 years, HV impedance 68. Charge time 7.4 no arrhythmia.. Labs: CMP 01/03/21 Glucose 141 H BUN 28 H Creatinine 0.97 Glomerular Filtration Rate 73 BUN/Creatinine Ratio 29 H Sodium 141 Potassium 4.8 Carbon Dioxide 21 Calcium 9.6 AST 33 ALT 26 LIPID PANEL 01/03/21 Total 136 Triglycerides <45 HDL 43 LDL N/A TSH 1.040 HGB A1C 6.3 PSA 0.8 Most recent PCP note, imaging tests, and labs reviewed. 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 Relevant Medications carvedilol (COREG) 25 MG tablet ranolazine (RANEXA) 500 MG 12 hr tablet clopidogrel (PLAVIX) 75 MG tablet Hyperlipidemia LDL goal <70 Relevant Medications colesevelam (WELCHOL) 625 MG tablet rosuvastatin (CRESTOR) 40 MG tablet Essential hypertension Relevant Medications carvedilol (COREG) 25 MG tablet lisinopril (PRINIVIL,ZESTRIL) 20 MG tablet SSS (sick sinus syndrome) ([facility]) Overview 03/16/20 Upgrade of his dual-chamber pacemaker to [facility] dual-chamber ICD Relevant Medications carvedilol (COREG) 25 MG tablet ranolazine (RANEXA) 500 MG 12 hr tablet clopidogrel (PLAVIX) 75 MG tablet Endocrine and Metabolic Hypothyroidism (acquired) Relevant Medications carvedilol (COREG) 25 MG tablet levothyroxine (SYNTHROID, LEVOTHROID) 75 MCG tablet PLAN: 1. CAD: Continue aspirin, Plavix, rosuvastatin, and carvedilol Asymptomatic currently Continue exercise 2. Chronic systolic heart failure: Continue carvedilol and lisinopril at current doses NYHA I-two symptoms Saint Ramana ICD in place 3. Presence of [place] Ram[place] ICD: Interrogation today shows normal parameters and function Continue in office interrogation every 6-9 months Remote interrogations every 3 months Four. Hypertension: Home blood pressures running 120 240 systolic Continue current medical therapy. Five. Hyperlipidemia: Goal LDL less than 70 Continue high intensity statin therapy with rosuvastatin 40. Advance Care Planning ACP discussion was held with the patient during this visit. Patient has anadvance directive (not in EMR), copy requested. Return to clinic in 6 months, or sooner as needed. Thank you for the opportunity to share in the care of your patient; pleasedo not hesitate to call me with any questions. Mansoor Silva MD, [facility] Office: [facility] [place] [address] 03/17/21 Mansoor Silva MD ECG ORDERABLES Final Result documented in this encounter Visit Diagnoses Diagnosis Coronary artery disease of bypass graft of [place] heart with stable angina pectoris- Primary Essential hypertension Unspecified essential hypertension Hyperlipidemia LDL goal <70 Other and unspecified hyperlipidemia Hypothyroidism (acquired) Unspecified hypothyroidism SSS (sick sinus syndrome) Sinoatrial node dysfunction documented in this encounter Care Teams Engineering Laboratory Technician Relationship Specialty Start Date End Date Allyson Avery APRN PCP - General Internal Medicine 03/15/21 07/21/23 documented as of this encounter
--- OUTSIDE RECORDS SUMMARY | 2024-07-21 17:16 | XMS_ITS | Encounter Summary ---
Author Organization [facility] In iatives Address [address] [place] [address] Care Team Providers Care Flavor Extractor Name Role Phone Bennie Allyson YOKO Primary Care Provider + [phone] Encounter Details Date Type Department Care Team (Late st Contact Info) Description 03/16/2020 Transcribed Document [facility] Family Medicine [address] [place] [id number] ProviderTatiana MD [address] [place] [address] [id number] Social History Tobacco Use Types Packs/Day Years Used Date Smoking Tobacco: Never Assessed Sex and Gender Information Value Date Recorded Sex Assigned at Not on file Legal Sex Male 5:33 PM CDT Gender Identity Not on file Sexual Orientation Not on file documented as of this encounter Miscellaneous Notes * Cerner Conversion Note - Historical ProviderMD - 03/16/2020 1:14 PM CDT Evaluation, Physical Therapy Entered On: 03/16/2020 14:10 EDT Performed On: 03/16/2020 14:09 EDT by LEE JOLLEY, PT General Information, PT Visit Type, PT : Initial evaluation LEE JOLLEY, PT - 03/16/2020 14:09 EDT Patient Orders : Order Date Order Ordering 03/15/2020 08:50 Physical Therapy Eval and Treat Ordered By: YESSENIA SHELL MD-INT 03/16/2020 13:14 Physical Therapy Eval and Treat Ordered By: YESSENIA SHELL MD-INT Active Diagnoses : 03/13/2020 12:00 HTN - Hypertension 03/13/2020 12:00 Other specified abnormal findings of blood chemistry 03/13/2020 12:00 Palpitations 03/13/2020 12:00 Syncope and collapse 03/13/2020 12:00 Syncope/Near syncope LEE JOLLEY, PT - 03/16/2020 14:11 EDT Therapy Diagnosis, PT : Impaired mobility due to syncope and V TACH. Onset of Problem, PT : 03/14/2020 EDT LEE JOLLEY, PT - 03/16/2020 14:09 EDT Admission Date : 03/14/2020 08:12 Personal Devices : Personal Devices Glasses Assistive Devices : Assistive Devices No Devices Recorded General Information Comment, PT : Pt adm with syncope, V TACH, elevated Troponin and palpitations. Pt's PPM upgraded to AICD today. LEE JOLLEY, PT - 03/16/2020 14:11 EDT General Status Patient Received Status : Supine in bed Treatment Start Time : 03/16/2020 13:50 EDT Patient Left Status : Supine in bed, RN/PCT informed, Family/Visitors at bedside, All needs met and within reach (Comment: KHRIS Eng [LEE JOLLEY, PT - 03/16/2020 14:11 EDT] ) Treatment End Time : 03/16/2020 14:05 EDT Treatment Time : 15 Minute(s) LEE JOLLEY, PT - 03/16/2020 14:11 EDT History and Environment Living Situation, Therapy : Home Patient Lives With : Adult Child/Children Persons Assisting Patient at Home : Child/Children, Other: son lives with pt and daughters also Asst with care as needed. Professional Skilled Services : None Persons Providing Information : [facility], [facility] Equipment Therapy, PT : becky Beverly Cane (Comment: next to toilet [LEE JOLLEY, PT - 03/16/2020 14:11 EDT] ) Cane : Cane, quad based, Cane, single point Home Setup : Two story Bedroom Location : Main level Bathroom #1 Location : Main level Bathroom #1 Features : Toilet, Tub/Shower Stairs : No LEE JOLLEY, PT - 03/16/2020 14:11 EDT Prior Level of Function PT GRID Prior LOF Ambulation, Household : Independent Prior LOF Ambulation, Community : Independent Prior LOF Bed Mobility : Independent Prior LOF Toileting : Independent Prior LOF Transfer : Independent Prior LOF Wheel Chair Mobility : na LEE JOLLEY, PT - 03/16/2020 14:11 EDT Prior LOF Assist with ADL Comment : Indep all ADL. LEE JOLLEY, PT - 03/16/2020 14:11 EDT Upper Extremity Right UE Active ROM : WFL Right UE Strength : WFL Left UE Active ROM : Impaired Upper Extremity Comment : GRETCHENE in a sling s/p AICD placement. LEE JOLLEY, PT - 03/16/2020 14:11 EDT Lower Extremity RLE Active ROM : WFL Right LE Strength : WFL LLE Active ROM : WFL Left LE Strength : WFL LEE JOLLEY, PT - 03/16/2020 14:11 EDT Functional Mobility Mobility Grid Supine to Sit : Rehab Minimal assistance (Comment: HOB at 40 degrees [LEE JOLLEY, PT - 03/16/2020 14:11 EDT] ) Sit to Stand : Rehab Minimal assistance Stand to Sit : Rehab Minimal assistance Sit to Supine : Rehab Minimal assistance LEE JOLLEY, PT - 03/16/2020 14:11 EDT Supine to Sit Device : Rails Sit to Stand Device : None, Belt, gait, Other: TIMBER FRAMER HELPER of 1 Stand to Sit Device : None, Belt, gait, Other: TIMBER FRAMER HELPER of 1 Sit to Supine Devices : Rails, Other: Asst to get BLE back into bed. Functional MobilityComment : Pt sitting EOB with supervision. BERNIE in a sling s/p AICD. He stood and took 4-5 small lateral steps to his R with min TIMBER FRAMER HELPER of 1. Pt still a little sedated following his sx today. LEE JOLLEY, PT - 03/16/2020 14:11 EDT Gait Training/Assessment, PT Weight Bearing Status Maintained : Yes Weight Bearing Status : Full Weight Bearing Status Comment : BERNIE in a sling s/p AICD placement. Gait Assistance Level : Unable to assess/activity not appropriate Walking Distance : Pt a little too sedated to AMb this afternoon. LEE JOLLEY, PT - 03/16/2020 14:11 EDT Cognition Assessment, PT Orientation : Oriented x 4 Follows Basic Command Assessment : Pt a little [place] and a little slow to respond to questions secondary to sedation for AICD placement. LEE JOLLEY PT - 03/16/2020 14:11 EDT Edu Topics Physical Therapy Education Grid Bed Mobility Training : Returns demonstration, Needs further teaching, Needs reinforcement Role of Physical Therapy : Verbalizes understanding Safety : Returns demonstration, Needs further teaching, Needs reinforcement Transfer Training : Returns demonstration, Needs further teaching, Needs reinforcement Physical Therapy, Other : Verbalizes understanding (Comment: Pt and daughter educated regarding POC. [LEE JOLLEY, PT - 03/16/2020 14:11 EDT] ) Indication Assesessment, PT Physical Therapy Indicated : Yes PT Problem List : Impaired, bed mobility, Impaired, endurance tolerance, Impaired, gait, Impaired, standing balance, Impaired, transfers Potential Barriers To Therapy : Pain Rehabilitation Potential : At prior level of function LEE JOLLEY, PT - 03/16/2020 14:11 EDT Plan of Care, PT PT Tx Plan/Goals Established w Patient : Yes PT Frequency Rehab : Daily PT Duration Rehab : Fourteen days PT Treatments Planned : Bed mobility training, Gait training, Safety education, Therapeutic exercises, Transfer training LEE JOLLEY, PT - 03/16/2020 14:11 EDT Bullet Assembly Press Operator Goals Mobility/Bed Mobility LTG PT Grid Goal #1 Goal #2 Activity : Supine to sit Sit to stand Assist : Independent, modified Independent, complete Date to Meet : 03/30/2020 EDT 03/30/2020 EDT Goal Status : Intial Goal Intial Goal Comment : HOB flat LEE JOLLEY, PT - 03/16/2020 14:11 EDT LEE JOLLEY, PT - 03/16/2020 14:11 EDT Ambulation LTG Grid Goal #1 Device : None Distance : 200 ft Assist : Supervision or set-up Date to Meet : 03/30/2020 EDT Goal Status : Intial Goal LEE JOLLEY PT - 03/16/2020 14:11 EDT Treatment Note Subjective Comment : Pt agreeable to PT eval. Additional Objective Information : Pt remained a litle sedated s/p AICD placement today. Assessment : Pt adm with syncope, elevated Troponin, palpitations and V TACH. He underwent surgery today for upgrade of PPM to AICD 03/16/2020. Pt requires skilled PT due to impaired functional mobility. Plan for Treatment : See POC. LEE JOLLEY, PT - 03/16/2020 14:11 EDT Pain Assessment Pain Comment : no c/o pain. LEE JOLLEY, PT - 03/16/2020 14:11 EDT Image 1 - Images currently included in the form version of this document have not been included in the text rendition version of the form. Anticipated Discharge Needs, OT/PT Anticipated Discharge to : Home, with family care LEE JOLLEY, PT - 03/16/2020 14:[address] [facility] PT Charges PT Eval Low Complexity : 1 LEE JOLLEY, PT - 03/16/2020 14:11 EDT Electronically signed by [facility] Conversion Transfer Professor Cerner at 12/20/2022 12:16 PM CDT documented in this encounter Plan of Treatment Not on file documented as of this encounter Visit Diagnoses Not on filedocumented in this encounter Care Teams Flavor Extractor Relationship Specialty Start Date End Date Allyson Avery, YOKO [address] [id number] PCP - General Nurse Practitioner 02/06/23 documented as of this encounter
--- OUTSIDE RECORDS SUMMARY | 2024-07-21 17:16 | XMS_ITS | Encounter Summary ---
Author Organization [facility] In iatives Address [address] [place] [address] Care Team Providers Care Call Center Supervisor Name Role Phone Allyson Avery APRN Primary Care Provider [phone] Reason for Referral * Ultrasound (Routine) - Closed Specialty Diagnoses / Procedures Referred By Venancio milian Referred To Contact Diagnoses Cold extremities Procedures Ultrasound lower extremity arteries complete Allyson Avery APRN [address] [address] Phone: tel: fax: Referral ID Status Reason Start Date Expiration Date Visits Re quested Visits Authorized [id number] Closed 01/15/2023 07/14/2023 1 1 Encounter Details Date Type Department Care Team (Late st Contact Info) Description 01/15/2023 Outside Orders [facility] Central Scheduling [address] [place] [address] Allyson Avery APRN [address] [place] [address] Cold extremities (Primary Dx) Social History Tobacco Use Types Packs/Day Years Used Date Smoking Tobacco: Never Assessed Sex and Gender Information Value Date Recorded Sex Assigned at Not on file Legal Sex Male 5:33 PM CDT Gender Identity Not on file Sexual Orientation Not on file documented as of this encounter Plan of Treatment Not on file documented as of this encounter Results * Ultrasound lower extremity arteries complete (02/06/2023 2:41 PM EDT) Anatomical Region Laterality Modality Vascular Ultrasound 02/06/2023 3:34 PM EDT Impressions 02/06/2023 3:38 PM EDT No significant peripheral vascular disease . Images reviewed, interpreted, and dictated by Dr. Tameka Root. Transcribed by Latricia Morales (R). Narrative 02/06/2023 3:38 PM EDT ARTERIAL DUPLEX DOPPLER EVALUATION OF THE LEFT AND RIGHT LOWER EXTREMITY WITH SPECTRAL ANALYSIS . HISTORY: Lifestyle altering claudication. PROCEDURE: Spectral and color Doppler waveform evaluation of the lower extremities was performed . ??Spectral analysis was performed. FINDINGS: RIGHT LOWER EXTREMITY. ?Velocities cm/sec : EXPLOSIVE OPERATOR GRENADE: WNL SFA Mid: WNL SFA Dist: WNL POP: WNL PT: WNL PT Ankle: WNL DP distal: WNL VONNIE: NA Waveforms are triphasic ??. LEFT LOWER EXTREMITY. ?Velocities cm/sec : EXPLOSIVE OPERATOR GRENADE: WNL SFA Mid: WNL SFA Dist: WNL POP: WNL PT: WNL PT Ankle: WNL DP distal: WNL VONNIE: NA Waveforms are triphasic ??. Procedure Note Jose Root MD - 02/06/2023 ARTERIAL DUPLEX DOPPLER EVALUATION OF THE LEFT AND RIGHT LOWER EXTREMITY WITH SPECTRAL ANALYSIS . HISTORY: Lifestyle altering claudication. PROCEDURE: Spectral and color Doppler waveform evaluation of the lower extremities was performed . Spectral analysis was performed. FINDINGS: RIGHT LOWER EXTREMITY. Velocities cm/sec : EXPLOSIVE OPERATOR GRENADE: WNL SFA Mid: WNL SFA Dist: WNL POP: WNL PT: WNL PT Ankle: WNL DP distal: WNL VONNIE: NA Waveforms are triphasic . LEFT LOWER EXTREMITY. Velocities cm/sec : EXPLOSIVE OPERATOR GRENADE: WNL SFA Mid: WNL SFA Dist: WNL POP: WNL PT: WNL PT Ankle: WNL DP distal: WNL VONNIE: NA Waveforms are triphasic . IMPRESSION: No significant peripheral vascular disease . Images reviewed, interpreted, and dictated by Dr. Tameka Root. Transcribed by Latricia Morales (R). us Allyson Avery APRN IMG US ORDERABLES Final Resu lt documented in this encounter Visit Diagnoses Diagnosis Cold extremities- Primary Cold extremities documented in this encounter Care Teams Call Center Supervisor Relationship Specialty Start Date End Date Allyson Avery APRN [address] [address] PCP - General Nurse Practitioner 02/06/23 documented as of this encounter
--- OUTSIDE RECORDS SUMMARY | 2024-07-21 17:16 | XMS_ITS | Encounter Summary ---
Author Organization [facility] [employer] In iatives Address [address] [place] [address] Care Team Providers Care Strap Machine Operator Automatic Name Role Phone Bennie Allyson BABCOCK Primary Care Provider + [phone] Encounter Details Date Type Department Care Team (Late st Contact Info) Description 03/15/2020 Transcribed Document [facility] [place] [address] [place] [address] ProviderTatiana MD [address] [place] [address] [id number] Social History Tobacco Use Types Packs/Day Years Used Date Smoking Tobacco: Never Assessed Sex and Gender Information Value Date Recorded Sex Assigned at Not on file Legal Sex Male 5:33 PM CDT Gender Identity Not on file Sexual Orientation Not on file documented as of this encounter Miscellaneous Notes * Cerner Conversion Note - Tatiana ProviderMD - 03/15/2020 11:07 AM CDT Patient: PAT MENCHACA Age: 79 years Sex: Male : 1940 Associated Diagnoses: None Author: JOSHUA CHAPMAN APRN [facility] PROGRESS NOTE: DIAGNOSIS: 1. VT with presyncope/syncope 2. CAD SUBJECTIVE: no complaints Vitals Signs (last 24 hrs) Last Charted Minimum Maximum Temp 97.4 (MAR 15 07:41) 97.4 (MAR 15 07:41) 98.3 (MAR 14 18:14) Mon HR 68 (MAR 15 08:38) 58 (MAR 15 06:00) 73 (MAR 14 21:49) Resp Rate 17 (MAR 15 07:41) 16 (MAR 15 06:00) 18 (MAR 14 14:32) SBP 134 (MAR 15 08:38) 119 (MAR 14 18:14) 134 (MAR 15 07:41) DBP 79 (MAR 15 08:38) 62 (MAR 14 18:14) 79 (MAR 15 07:41) MAP 97 (MAR 15 07:41) 81 (MAR 14 18:14) 97 (MAR 15 07:41) SpO2 98 (MAR 15 06:00) 94 (MAR 14 18:14) 100 (MAR 14 15:15) Clinical Weight CLINICALWEIGHT: 78.21 kg (03/14/20 08:11:00) Routine Weight Calculation: 78.69 kg (03/15/20 04:00:00) Routine Weight Entry Format: At[place] (03/15/20 04:00:00) Routine Weight Source: Bed scale (03/15/20 04:00:00) Routine Weight, Ounces: 2 oz (03/15/20 04:00:00) Routine Weight, Pounds: 173 lb (03/15/20 04:00:00) [place] Body Weight: 77 kg (03/14/20 08:11:00) Intake & Output Totals Last 24 Hours (7a-7a) Intake (4 Events) Medications (50 mL) Oral Intake (100 mL) Output (2 Events) Valerio Catheter (375 mL) Urine Voided (Volume) (100 mL) Input Total: 150 mL Output Total: 475 mL Balance: -325 mL TELE: paced Blood Gases (Current Encounter/Past 24 Hours) No Blood Gas Results Found (Past 24 Hours) Labs (Last four charted values) WBC 4.1 (MAR 15) 4.2 (MAR 14) 4.8 (MAR 13) HB L 13.3 (MAR 15) 13.7 (MAR 14) 14.0 (MAR 13) HCT L 39.3 (MAR 15) 40.6 (MAR 14) 41.6 (MAR 13) Plt L 149 (MAR 15) 166 (MAR 13) 169 (MAR 13) Na 139 (MAR 15) 138 (MAR 14) 140 (MAR 13) K 4.1 (MAR 15) 4.5 (MAR 14) 5.0 (MAR 13) Cl 105 (MAR 15) 104 (MAR 14) 104 (MAR 13) CO2 28 (MAR 15) 29 (MAR 14) 30 (MAR 13) BUN H 24 (MAR 15) H 23 (MAR 14) H 24 (MAR 13) Cr 0.90 (MAR 15) 1.00 (MAR 14) 1.20 (MAR 13) Glu R H 133 (MAR 15) H 119 (MAR 14) H 129 (MAR 13) Ca 9.1 (MAR 15) 8.8 (MAR 14) 9.4 (MAR 13) Lactic 1.5 (MAR 13) AST 31 (MAR 14) H 42 (MAR 13) ALT 28 (MAR 14) 34 (MAR 13) ALK P 58 (MAR 14) 78 (MAR 13) T Bili 0.7 (MAR 14) 0.6 (MAR 13) PTN 7.2 (MAR 14) 7.6 (MAR 13) ALB 3.7 (MAR 14) 3.8 (MAR 13) Troponin H 0.101 (MAR 15) H 0.088 (MAR 14) H 0.078 (MAR 14) H 0.087 (MAR 14) EXAM: Alert & Oriented, No apparent distress. HEAD&NECK: No JVD, No carotid bruit CORONARY: RRR, S1/S2, No murmurs LUNGS: CTA/B, No rhonchi, No wheeze ABDOMEN: Soft, Non-tender, Positive Bowel sounds EXTREMITIES: No edema, No cyanosis, Pedal pulses palpable IMPRESSION/PLAN: VT with associated presyncope/Syncope case discussed with Dr. Pérez and Dr Feldman at length plan for ischemic workup today with upgrade to ICD in am CAD with prior CABG echocardiogram revealed new wall motion abnormalities for [facility] today SSS s/p dual chamber PPM HTN HLP Length of time spent facilitating, coordinating providing care greater than 35 minutes documented in this encounter Plan of Treatment Not on file documented as of this encounter Visit Diagnoses Not on filedocumented in this encounter Care Teams Strap Machine Operator Automatic Relationship Specialty Start Date End Date Allyson Avery, CULINARY INSTRUCTOR [address] [place] [phone] PCP - General Nurse Practitioner 02/06/23 documented as of this encounter
--- OUTSIDE RECORDS SUMMARY | 2024-07-21 17:16 | XMS_ITS | Encounter Summary ---
Author Organization [facility] [employer] In iatives Address [address] [place] [address] Care Team Providers Care Senior Peoplesoft Developer Name Role Phone Bennie Allyson YOKO Primary Care Provider + [phone] Encounter Details Date Type Department Care Team (Late st Contact Info) Description 03/17/2020 Transcribed Document [facility] Family Medicine [address] [place] [address] ProviderTatiana MD [address] [place] [address] [id number] Social History Tobacco Use Types Packs/Day Years Used Date Smoking Tobacco: Never Assessed Sex and Gender Information Value Date Recorded Sex Assigned at Not on file Legal Sex Male 5:33 PM CDT Gender Identity Not on file Sexual Orientation Not on file documented as of this encounter Miscellaneous Notes * Cerner Conversion Note - Tatiana ProviderMD - 03/17/2020 1:02 PM CDT Discharge Summary, PT Entered On: 03/17/2020 13:03 EDT Performed On: 03/17/2020 13:02 EDT by Derrek Newman Student-Physical Therapist Discharge Summary Discharge Summary Provider Notified : Nursing Reason for Discharge : Discharged from hospital Discharged to, Therapy : Home, independently Discharge Equipment, PT : None Derrek Newman Student-Physical Therapist - 03/17/2020 13:02 EDT Discharge Summary Comment, PT : Patient is an 79 yr old male who was admitted to the hospital for syncope, v-tach, elevated troponin, and palpitations on 03/13/20. On 03/16/20 patient's pacemaker was upgraded to an AICD. During last PT session, patient required min A with all bed mobility and transfers. Patient completed ~5 lateral steps with Min A and SIGNAL AND COMMUNICATIONS MAINTAINER. Patient did not meet any of his shelter goals due to assistance required with all functional activities and impaired endurance tolerance. PT has reviewed and agrees with note. DERREK HEAD, PT - 03/17/2020 14:01 EDT [facility] Goals Mobility/Bed Mobility LTG PT Grid Goal #1 Goal #2 Activity : Supine to sit Sit to stand Assist : Independent, modified Independent, complete Date to Meet : 03/30/2020 EDT 03/30/2020 EDT Goal Status : Not met Not met Comment : HOB flat Derrek Newman, Student-Physical Therapist - 03/17/2020 13:06 EDT Derrek Newman, Student-Physical Therapist - 03/17/2020 13:06 EDT Ambulation LTG Grid Goal #1 Device : None Distance : 200 ft Assist : Supervision or set-up Date to Meet : 03/30/2020 EDT Goal Status : Not met Derrek Newman, Student-Physical Therapist - 03/17/2020 13:06 EDT documented in this encounter Plan of Treatment Not on file documented as of this encounter Visit Diagnoses Not on filedocumented in this encounter Care Teams Senior Peoplesoft Developer Relationship Specialty Start Date End Date Allyson Avery APRN [address] [address] [place] [phone] PCP - General Nurse Practitioner 02/06/23 documented as of this encounter
--- OUTSIDE RECORDS SUMMARY | 2024-07-21 17:16 | XMS_ITS | Encounter Summary ---
Author Organization [facility] In iatives Address [address] [place] [address] Care Team Providers Care Tobacco Stripper Hand Name Role Phone Allyson Avery YOKO Primary Care Provider + [phone] Encounter Details Date Type Department Care Team (Late st Contact Info) Description 03/16/2020 Transcribed Document [facility] [address] [place] [address] Jf Gallagher MD [address] [place] [address] [address] [place] [address] Social History Tobacco Use Types Packs/Day Years Used Date Smoking Tobacco: Never Assessed Sex and Gender Information Value Date Recorded Sex Assigned at Not on file Legal Sex Male 5:33 PM CDT Gender Identity Not on file Sexual Orientation Not on file documented as of this encounter Miscellaneous Notes * Cerner Conversion Note - Jf Gallagher MD - 03/16/2020 9:11 AM EDT Patient: PAT MENCHACA Age: 79 years Sex: Male : 1940 Associated Diagnoses: None Author: JF GALLAGHER MD-INT Subjective PCP: [facility] DOA: 03/13/2020 DOD: HPI: 79 year-old gentleman admitted to the hospital with a near syncopal episode and possibly V. tach CODE STATUS: Modified code as documented in the chart intubation and full treatment but no ACLS CONSULTS: Cardiology, [facility] WORKUP / PROCEDURES: Cardiac Cath DATE OF SERVICE: 03/15/2020 PROCEDURE PERFORMED: Left heart catheterization, selective coronary arteriography, selective bypass angiography. INDICATIONS: Ventricular tachycardia, syncope, CAD and angina with known complex coronary disease. FINDINGS: LV pressure 148/16. Aortic pressure 150/78. No significant gradient across the aortic valve. LEFT VENTRICULOGRAM: Ventricular study demonstrates akinesia of the inferior wall with severe reduction in cardiac ejection fraction estimated to be between 30% and 35% with good movement of the anterior wall. No mitral insufficiency noted. IGIUGIG CORONARY ARTERIOGRAPHY: Left coronary artery: Left main is normal, divides into an LAD and circumflex. The circumflex is occluded and grafted. The LAD is occluded after a septal and diagonal which have noncritical plaque disease. Right coronary artery is occluded. BYPASS ANGIOGRAPHY: Left internal mammary graft widely patent including distal LAD stent placed in 2017. Sequential saphenous vein graft to proximal and distal marginal branches widely patent with good flow. However, there is a 50% ostial stenosis, which in reviewing previous films was present in the past. Saphenous vein graft to the right coronary is totally occluded. IMPRESSION: 1. Severe three-vessel coronary artery disease. 2. Patency of mammary graft and sequential vein graft to the marginal branch of the circumflex. Occluded right coronary graft. 3. Severe left ventricular dysfunction. RECOMMENDATION: The patient will be considered to an upgrade to biventricular ICD. He will undergo medical therapy for management of ischemic coronary disease and cardiomyopathy. HOSPITAL FOLLOWUP: 03/14/2020 Patient was admitted last night. Seen and examined in ER, chart and H&P reviewed this morning. He is resting in bed, denies chest pain or shortness of breath. No fever noted. Heart rate seems more stable. Discussed with the patient and daughter at bedside 03/15/2020 Patient had another episode this morning. Witnessed by the son at bedside. He was laying down talking with the son and suddenly had a near syncopal episode according to patient he was feeling weak and he was able to hear but cannot answer and seems that he is going to pass out. In lasted for a few minutes and then resolved and it is similar to the previous episodes which brought him to the hospital. When I'm seeing him he is resting in bed son is at bedside he is awake alert responsive and no other issues. Denies chest pain or dyspnea. No fever. 03/16/2020 Patient is resting in bed, looks comfortable, his daughter is at bedside. Did not have any new episodes overnight. Yesterday's events noted underwent left heart catheterization as reported above and found to have severely suppressed left ventricular function and plan for AICD placement noted for today. Health Status Allergies: Allergic Reactions (Selected) No Known Allergies Current medications: (Selected) Inpatient Medications Ordered Coenzyme Q10: 400 mg, Oral, Daily Colace: 400 mg, Oral, At Bedtime Core mg, Oral, BID Crestor: 40 mg, Oral, Saturday Fish Oil: 2,000 mg, Oral, Daily Metanx Oral Cap: 1 Cap, Oral, BID MiraLax: 17 Gram, Oral, Daily Normal Saline Flush: 10 mL, IV Push, Q12H Normal Saline Flush: 10 mL, IV Push, See Comment, PRN: IV Use Protonix: 40 mg, Oral, Daily Ranexa: 500 mg, Oral, Daily Tylenol: 650 mg, Oral, Q4H, PRN: Pain (Mild 1-3) Zofran: 4 mg, IV Push, Q4H, PRN: Nausea/Vomiting allopurinol: 100 mg, Oral, Daily aspirin: 81 mg, Oral, Daily colestipol: 2 Gram, Oral, QAM colestipol: 4 Gram, Oral, QPM heparin: 5,000 Units, SubCutaneous, Q8HInt insulin lispro sliding scale: Scale A:, SubCutaneous, AC and at Bedtime levothyroxine: 75 mcg, Oral, Daily lisinopril: 20 mg, Oral, Daily Prescriptions Prescribed Metoprolol Tartrate 25 mg oral tablet: 0.5 Tab, Oral, BID, 30 Tab, 3 Refill(s) Documented Medications Documented Aspirin Low Dose 81 mg oral tablet: 1 Tab, Oral, Daily, 0 Refill(s) Cebria Memory Support Capsule: 1 Cap, Oral, Daily, 0 Refill(s) Coenzyme Q10 200 mg oral capsule: 2 Cap, Oral, Daily, 0 Refill(s) Colace 100 mg oral capsule: 4 Cap, Oral, At Bedtime, 0 Refill(s) Crestor 20 mg oral tablet: 2 Tab, Oral, Saturday, 0 Refill(s) Fish Oil 1200 mg oral capsule: 2 Cap, Oral, BID, 0 Refill(s) Metanx oral capsule: 1 Cap, Oral, BID, 0 Refill(s) Multiple Vitamins oral tablet: 1 Tab, Oral, Daily, 30 Tab, 0 Refill(s) NexIUM 40 mg oral delayed release capsule: 1 Cap, Oral, Daily, 30 Cap, 0 Refill(s) Osteo Bi-Flex Plus MSM: 1 Tab, Oral, BID, 0 Refill(s) Plavix: 75 mg, Oral, Daily, 0 Refill(s) Ranexa 500 mg oral tablet, extended release: 1 Tab, Oral, Daily, 0 Refill(s) Welchol 625 mg oral tablet: 1 Tab, Oral, QAM, 0 Refill(s) Welchol 625 mg oral tablet: 2 Tab, Oral, At Bedtime, 0 Refill(s) allopurinol 100 mg oral tablet: 1 Tab, Oral, Daily, 30 Tab, 0 Refill(s) amLODIPine 5 mg oral tablet: 1 Tab, Oral, Daily, 30 Tab, 0 Refill(s) levothyroxine 75 mcg (0.075 mg) oral tablet: 1 Tab, Oral, Daily, 90 Tab, 0 Refill(s) lisinopril 20 mg oral tablet: 1 Tab, Oral, Daily, 30 Tab, 0 Refill(s), Home Medications (19) Active allopurinol 100 mg oral tablet 100 mg = 1 Tab, Oral, Daily amLODIPine 5 mg oral tablet 5 mg = 1 Tab, Oral, Daily Aspirin Low Dose 81 mg oral tablet 1 Tab, Oral, Daily Cebria Memory Support Capsule 1 Cap, Oral, Daily Coenzyme Q10 200 mg oral capsule 2 Cap, Oral, Daily Colace 100 mg oral capsule 400 mg = 4 Cap, Oral, At Bedtime Crestor 20 mg oral tablet 40 mg = 2 Tab, Oral, Saturday Fish Oil 1200 mg oral capsule 2,400 mg = 2 Cap, Oral, BID levothyroxine 75 mcg (0.075 mg) oral tablet 75 mcg = 1 Tab, Oral, Daily lisinopril 20 mg oral tablet 20 mg = 1 Tab, Oral, Daily Metanx oral capsule 1 Cap, Oral, BID Metoprolol Tartrate 25 mg oral tablet 12.5 mg = 0.5 Tab, Oral, BID Multiple Vitamins oral tablet 1 Tab, Oral, Daily NexIUM 40 mg oral delayed release capsule 40 mg = 1 Cap, Oral, Daily Osteo Bi-Flex Plus MSM 1 Tab, Oral, BID Plavix 75 mg, Oral, Daily Ranexa 500 mg oral tablet, extended release 500 mg = 1 Tab, Oral, Daily Welchol 625 mg oral tablet 625 mg = 1 Tab, Oral, QAM Welchol 625 mg oral tablet 1,250 mg = 2 Tab, Oral, At Bedtime Problem list: Active Problems (12) Allergic rhinitis Angina Arthritis At risk for sleep apnea Cardiac arrhythmia Coronary artery disease Hard of hearing Hyperlipidemia Hypertension Myocardial infarction Renal calculi Stented coronary artery Objective VS/Measurements Vitals Signs (last 24 hrs) Last Charted Minimum Maximum Temp 98.2 (MAR 16 06:30) 97.4 (MAR 15 10:10) 98.2 (MAR 16 06:30) Mon HR 60 (MAR 16 06:30) 60 (MAR 16 06:30) 70 (MAR 15 16:30) Resp Rate 16 (MAR 16:30) L 12 (MAR 15:) H 32 (MAR 15 17:45) SBP 117 (MAR 16 06:30) 117 (MAR 16 06:30) H 166 (MAR 15 17:45) DBP 64 (MAR 16 06:30) 64 (MAR 16 06:30) 86 (MAR 15 16:00) MAP 84 (MAR 16 06:30) 84 (MAR 16 06:30) 119 (MAR 15 16:45) SpO2 98 (MAR 16 06:30) 94 (MAR 15 18:45) 98 (MAR 15 15:45) General: Alert and oriented, No acute distress. Eye: Pupils are equal, round and reactive to light, Normal conjunctiva. HENT: Normocephalic, Oral mucosa is moist. Neck: Supple, Non-tender, No carotid bruit, No jugular venous distention. Respiratory: Respirations are non-labored. Breath sounds: Bilateral, Diminished. Cardiovascular: Normal rate, Irregular rhythm, S1, S2. Gastrointestinal: Soft, Non-tender, Normal bowel sounds. Genitourinary: No costovertebral angle tenderness. Musculoskeletal: Normal range of motion. Integumentary: Warm. Neurologic: Alert, Oriented, No focal deficits. Psychiatric: Cooperative. Results Review No Radiology Results Found MAR 16 00:17 139 106 20 / H 153 3.9 28 0.90 \ Impression and Plan Assessment and Plan: Diagnosis. DIAGNOSIS: Near syncopal episode at home ??2, another one in the morning of 03/15/2020 in hospital. Cardiac arrhythmia, with recurrent nonsustained V. 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, status post left heart catheterization on 03/15/2020 as reported above. Chronic systolic congestive heart failure ejection fraction of 40% Atrial fibrillation, sick sinus syndrome, dual-chamber permanent pacemaker placement Type 2 diabetes, continue to monitor blood glucose and sliding scale insulin coverage Essential hypertension / Hyperlipidemia Hard of hearing PLAN Cardiology plan for upgrade of pacemaker to biventricular AICD noted. Continue medical management for his ischemic coronary artery disease Continue to monitor closely on telemetry floor Monitor and replace electrolytes Start PT and OT Follow other workup Discussed with the patient and his daughter this morning. DC planning hopefully tomorrow if remained stable. documented in this encounter Plan of Treatment Not on file documented as of this encounter Visit Diagnoses Not on filedocumented in this encounter Care Teams Tobacco Stripper Hand Relationship Specialty Start Date End Date Allyson Avery APRN [address] [id number] PCP - General Nurse Practitioner 02/06/23 documented as of this encounter
--- OUTSIDE RECORDS SUMMARY | 2024-07-21 17:16 | XMS_ITS | Encounter Summary ---
Author Organization [facility] In iatives Address [address] [place] [address] Care Team Providers Care Econometrics Professor Name Role Phone Bennie Allyson BABCOCK Primary Care Provider + [phone] Encounter Details Date Type Department Care Team (Late st Contact Info) Description 03/15/2020 Transcribed Document [facility] [place] [address] [place] [address] ProviderTatiana MD [address] [place] [address] Social History Tobacco Use Types Packs/Day Years Used Date Smoking Tobacco: Never Assessed Sex and Gender Information Value Date Recorded Sex Assigned at Not on file Legal Sex Male 5:33 PM CDT Gender Identity Not on file Sexual Orientation Not on file documented as of this encounter Miscellaneous Notes * Cerner Conversion Note - Historical ProviderMD - 03/15/2020 4:00 AM CDT Height and Weight, Routine Entered On: 03/15/2020 4:33 EDT Performed On: 03/15/2020 4:00 EDT by Rudolph Mcadams [facility] Unit Coord Height and Weight, Routine Routine Weight Source : Bed scale Routine Weight Entry Format : Trail Routine Weight, Pounds : 173 lb Routine Weight, Ounces : 2 oz Routine Weight Calculation : 78.69 kg Height Source : Stated Height Entry Format : Trail Height, Feet : 6 ft Height, Inches : 0 Inch Clinical Height : 182.88 cm Body Surface Area (BSA), Routine : 2.01 m2 Body Mass Index (BMI), Routine : 23.53 kg/m2 Rudolph Mcadams [facility] Unit [facility] - 03/15/2020 4:32 EDT Electronically signed by Angel, [facility] Conversion Supervisor [employer] Education Cerner at 12/20/2022 12:10 PM CDT documented in this encounter Plan of Treatment Not on file documented as of this encounter Visit Diagnoses Not on filedocumented in this encounter Care Teams Econometrics Professor Relationship Specialty Start Date End Date Allyson Avery, DAY HABILITATION SPECIALIST [address] [facility] [address] [place], [place] [phone] PCP - General Nurse Practitioner 02/06/23 documented as of this encounter
--- OUTSIDE RECORDS SUMMARY | 2024-07-21 17:16 | XMS_ITS | Encounter Summary ---
Author Organization [facility] In iatives Address [address] [place] [address] Care Team Providers Care Home Health Travel Ot Name Role Phone Allyson Avery APRN Primary Care Provider + [phone] Encounter Details Date Type Department Care Team (Late st Contact Info) Description 03/15/2020 Transcribed Document [facility] [place] [address] [place] [address] ProviderTatiana MD [address] [place] [address] Social History Tobacco Use Types Packs/Day Years Used Date Smoking Tobacco: Never Assessed Sex and Gender Information Value Date Recorded Sex Assigned at Not on file Legal Sex Male 5:33 PM CDT Gender Identity Not on file Sexual Orientation Not on file documented as of this encounter Miscellaneous Notes * Cerner Conversion Note - Historical ProviderMD - 03/15/2020 7:58 PM CDT Event Note Entered On: 03/15/2020 19:59 EDT Performed On: 03/15/2020 19:58 EDT by Isabel Kang RN Event Note Event Date/Time : 03/15/2020 19:50 EDT Description of Event : Report called to receiving nurse gurmeet Drake transport to room 430. Isabel Kang RN - 03/15/2020 19:58 EDT Electronically signed by Aruna Ortiz Conversion Occupational Therapy Department Chair Cerner at 12/20/2022 12:26 PM CDT documented in this encounter Plan of Treatment Not on file documented as of this encounter Visit Diagnoses Not on filedocumented in this encounter Care Teams Home Health Travel Ot Relationship Specialty Start Date End Date Allyson Avery APRN [address] [address] [place] [phone] PCP - General Nurse Practitioner 02/06/23 documented as of this encounter
--- OUTSIDE RECORDS SUMMARY | 2024-07-21 17:16 | XMS_ITS | Clinical Summary ---
Author Organization [facility] In iatives Address [address] [place] [address] Care Team Providers Care Fruit Room Hand Name Role Phone Allysno Avery APRN Primary Care Provider + [phone] Social History Tobacco Use Types Packs/Day Years [...] Date Roque rded Speak language other than Kiswahili at home Not on file 09/19/2023 Want [...] Orientation Not on file Plan of Treatment Health Maintenance Due Date Last Done Comments Depression Screening (12+) 1952 Tobacco Cessation Counseling and Screening (12+) 1952 Shingles Vaccine (Zoster) (1 of 2) 1989 Pneumococcal 65+ years (1 of 1 - PCV) 2004 Medicare Initial AWV G0438 10/04/2005 Respiratory Syncytial Virus (RSV) Adult or (1 - 1-dose 75+ series) 2014 Falls Risk Screening 09/02/2023 COVID-19 VACCINE ( season) 2024 10/02/2021, 12/02/2020, 11/03/2020 Influenza Vaccine (#1) 2024 DTAP/TDAP/TD VACCINES (2 - T d or Tdap) 04/18/2032 04/18/2022 Insurance MEDICARE PART A B HEALTH CLAIMS Care Teams Fruit Room Hand Relationship Specialty Start Date End Date Allyson Avery APRN [address] [phone] PCP - General Nurse Practitioner 02/06/23
--- OUTSIDE RECORDS SUMMARY | 2024-07-21 17:16 | XMS_ITS | Encounter Summary ---
Author Organization [facility] In iatives Address [address] [place] [address] Care Team Providers Care Saw Feeder Name Role Phone Allyson Avery APRN Primary Care Provider + [phone] Encounter Details Date Type Department Care Team (Late st Contact Info) Description 03/14/2020 Transcribed Document [facility] [place] [address] [place] [address] ProviderTatiana MD [address] [place] [address] Social History Tobacco Use Types Packs/Day Years Used Date Smoking Tobacco: Never Assessed Sex and Gender Information Value Date Recorded Sex Assigned at Not on file Legal Sex Male 5:33 PM CDT Gender Identity Not on file Sexual Orientation Not on file documented as of this encounter Miscellaneous Notes * Cerner Conversion Note - Historical ProviderMD - 03/14/2020 5:00 PM CDT Chart Check - Review Order Profile Entered On: 03/14/2020 17:00 EDT Performed On: 03/14/2020 17:00 EDT by Penny Saldivar, RN Chart Check All Active Orders Reviewed : Yes Penny Saldivar RN - 03/14/2020 17:00 EDT documented in this encounter Plan of Treatment Not on file documented as of this encounter Visit Diagnoses Not on filedocumented in this encounter Care Teams Saw Feeder Relationship Specialty Start Date End Date Allyson Avery APRN [address] [place] [phone] PCP - General Nurse Practitioner 02/06/23 documented as of this encounter
--- OUTSIDE RECORDS SUMMARY | 2024-07-21 17:16 | XMS_ITS | Encounter Summary ---
Author Organization [facility] [employer] In [facility]atives Address [address] [place] [address] Care Team Providers Care Agricultural Inspector Name Role Phone Bennie Allyson YOKO Primary Care Provider + [phone] Encounter Details Date Type Department Care Team (Late st Contact Info) Description 03/17/2020 Transcribed Document [facility] [place] [address] [place] [address] ProviderTatiana MD [address] [place] [id number] Social History Tobacco Use Types Packs/Day Years Used Date Smoking Tobacco: Never Assessed Sex and Gender Information Value Date Recorded Sex Assigned at Not on file Legal Sex Male 5:33 PM CDT Gender Identity Not on file Sexual Orientation Not on file documented as of this encounter Miscellaneous Notes * Cerner Conversion Note - Tatiana ProviderMD - 03/17/2020 10:04 AM CDT Nursing Discharge Summary Entered On: 03/17/2020 10:05 EDT Performed On: 03/17/2020 10:04 EDT by GRANT CRAIN RN Discharge Documentation Discharge Date/Time : 03/17/2020 11:00 EDT Patient Disposition, General : Discharge Discharge To : Home with ambulatory/outpatient follow-up Mode Of Departure, General Discharge : Private vehicle IV Discontinued : Yes Personal Belongings With Patient : Yes Prescriptions Given to Patient : Called to pharmacy GRANT CRAIN RN - 03/17/2020 10:04 EDT documented in this encounter Plan of Treatment Not on file documented as of this encounter Visit Diagnoses Not on filedocumented in this encounter Care Teams Agricultural Inspector Relationship Specialty Start Date End Date Allyson Avery, TOOL TECHNICIAN [address] [phone] PCP - General Nurse Practitioner 02/06/23 documented as of this encounter
--- OUTSIDE RECORDS SUMMARY | 2024-07-21 17:16 | XMS_ITS | Encounter Summary ---
Author Organization [facility] In iatives Address [address] [place] [address] Care Team Providers Care Parasitology Teacher Name Role Phone Allyson Avery APRN Primary Care Provider + [phone] Encounter Details Date Type Department Care Team (Late st Contact Info) Description 03/17/2020 Transcribed Document [facility] [place] [address] [place] [address] ProviderTatiana MD [address] [place] [address] Social History Tobacco Use Types Packs/Day Years Used Date Smoking Tobacco: Never Assessed Sex and Gender Information Value Date Recorded Sex Assigned at Not on file Legal Sex Male 5:33 PM CDT Gender Identity Not on file Sexual Orientation Not on file documented as of this encounter Miscellaneous Notes * Cerner Conversion Note - Historical ProviderMD - 03/17/2020 5:39 AM CDT Event Note Entered On: 03/17/2020 5:40 EDT Performed On: 03/17/2020 5:39 EDT by Lorenzo Kathleen RN Event Note Event Date/Time : 03/17/2020 5:40 EDT Event Location : Assigned room Event Details : Other: pt is still refusing fs Lorenzo Kathleen RN - 03/17/2020 5:39 EDT documented in this encounter Plan of Treatment Not on file documented as of this encounter Visit Diagnoses Not on filedocumented in this encounter Care Teams Parasitology Teacher Relationship Specialty Start Date End Date Allyson Avery APRN [address] [place] [address] PCP - General Nurse Practitioner 02/06/23 documented as of this encounter
--- OUTSIDE RECORDS SUMMARY | 2024-07-21 17:16 | XMS_ITS | Encounter Summary ---
Author Organization [facility] [employer] In [facility]atives Address [address] [place] [address] Care Team Providers Care Teletypewriter Operator Name Role Phone Allyson Avery APRN Primary Care Provider + [phone] Encounter Details Date Type Department Care Team (Late st Contact Info) Description 03/13/2020 Transcribed Document [facility] [place] [address] [place] [address] ProviderTatiana MD [address] [place] [phone] Social History Tobacco Use Types Packs/Day Years Used Date Smoking Tobacco: Never Assessed Sex and Gender Information Value Date Recorded Sex Assigned at Not on file Legal Sex Male 5:33 PM CDT Gender Identity Not on file Sexual Orientation Not on file documented as of this encounter Miscellaneous Notes * Cerner Conversion Note - Tatiana ProviderMD - 03/13/2020 9:29 PM CDT [place] Suicide Severity Rating Scale (C-SSRS) Entered On: 03/13/2020 21:44 EDT Performed On: 03/13/2020 21:44 EDT by Salty Wolff RN [place] Suicide Severity Rating Scale (C-SSRS) CSSRS Past Month Wish to be : No CSSRS Past Month Suicidal Thoughts : No CSSRS Lifetime Suicide Behavior : No Suicide Severity Rating Score : 0 Suicide Severity Rating : No Additional Care Required at this time Salty Wolff, KHRIS - 03/13/2020 21:44 EDT documented in this encounter Plan of Treatment Not on file documented as of this encounter Visit Diagnoses Not on filedocumented in this encounter Care Teams Teletypewriter Operator Relationship Specialty Start Date End Date Allyson Avery, YOKO [address] [phone] PCP - General Nurse Practitioner 02/06/23 documented as of this encounter
--- OUTSIDE RECORDS SUMMARY | 2024-07-21 17:16 | XMS_ITS | Encounter Summary ---
Author Organization [facility] In iatives Address [address] [place] [address] Care Team Providers Care Director Agricultural Services Name Role Phone Bennie Allyson YOKO Primary Care Provider + [phone] Encounter Details Date Type Department Care Team (Late st Contact Info) Description 03/14/2020 Transcribed Document [facility] [place] [address] [place] [address] ProviderTatiana MD [address] [place] [address] [id number] Social History Tobacco Use Types Packs/Day Years Used Date Smoking Tobacco: Never Assessed Sex and Gender Information Value Date Recorded Sex Assigned at Not on file Legal Sex Male 5:33 PM CDT Gender Identity Not on file Sexual Orientation Not on file documented as of this encounter Miscellaneous Notes * Cerner Conversion Note - Tatiana ProviderMD - 03/14/2020 8:11 AM CDT Admission History, Adult Entered On: 03/14/2020 10:00 EDT Performed On: 03/14/2020 8:11 EDT by Heather Daniels Rn Advance Directive Patient has Advance Directive *Q : Yes, Advance Directive with the patient Request Family/Rep to Provide Copy of AD : Yes Advance Directive Type : Living will, Other: Health care surrogate Advance Directive Date : 06/23/2017 EDT Copy Advance Directive Verified/on Chart : Yes Date Hospital Obtained Advance Directive : 03/14/2020 EDT Advance Directive Comment : no intubation/ Heather Daniels Rn - 03/14/2020 9:46 EDT Anesthesia/Transfusion History Family History of Anesthesia Reaction : No prior transfusion(s) Transfusion History : Prior anesthesia without reaction Family History of Anesthesia Reaction : None Heather Daniels Rn - 03/14/2020 9:46 EDT Functional Assessment Living Situation : Home Patient Lives With : Adult Child/Children Persons Assisting Patient at Home : Child/Children Mobility Assistance Prior to Admission : Independent VELEZ Hx Falls Immediate/Within 3 Months : No Current Home Treatments : None Heather Daniels Rn - 03/14/2020 9:46 EDT General Info Mode of Arrival on Unit : Ambulatory Legal Guardian : Unaccompanied Legal Guardian : No Support Person/Patient Electric Motor Assembler : Yes Heather Daniels Rn - 03/14/2020 9:46 EDT Support Person/Pt Rep Name : Albertina Sow RN - 03/16/2020 9:18 EDT Contact Password : Heather Emerson Rn - 03/14/2020 9:46 EDT Support Person/Pt Rep Contact Information : [phone] Albertina Young RN - 03/16/2020 9:18 EDT Want Family/Rep/Phys Notified of Admit : No Emergency Contact #1 : Jesika Villar Emergency Contact #1 Emergency Contact #1 Relationship : daughter Emergency Contact #2 : Edwin Garcia Emergency Contact #2 Emergency Contact #2 Relationship : Son Chief Complaint : pt here with family states high blood pressure readings at home. and states multiple blacking out spells. states significant cardiac hx. states pressure on his chest Information Obtained From : Patient, Daughter Primary Language : Malian Preferred Communication Mode : Verbal Communication Barrier : None, Other: hearing Ingredient Scaler Helper Needed : No Heather Daniels Rn - 03/14/2020 9:46 EDT Fall Risk Scales ABCs Fall Injury Risk Identification : Age, Coagulation ABC Fall Injury Risk : Moderate to high injury risk Injury Moderate to High Risk Interventions : Bed alarm on, Patient room close to nurses station, Supervise toileting as indicated, Wrist band (fall risk) on per policy VELEZ Hx Falls Immediate/Within 3 Months : No Velez Secondary Diagnosis : Yes VELEZ Use of Ambulatory Aid : Bed rest/Nurse assist VELEZ IV Therapy or IV Access : Yes Velez Gait/Transferring : Weak Velez Mental Status : Oriented to own ability Velez Fall Risk Score : 45 VELEZ Fall Scale Risk Level : 25-45 Medium Risk [place] Fall Interventions : Bed in low position, Call device within reach, Fall prevention handout/education per facility policy, Hourly comfort/safety rounds, Non-slip footwear, Personal items within reach, Room free of clutter/spills, Upper side-rails up, Wheels locked, Wires/Cords secured Barriers to Learning : Hearing deficit Fall Risk Scale Calc Temp : 0 Heather Daniels Rn - 03/14/2020 9:46 EDT Health Histories Smoking Status : Never (less than 100 in lifetime; none in last 30 days) Smokeless Tobacco Status : Never Heather Daniels Rn - 03/14/2020 9:46 EDT Social History (As Of: 03/14/2020 10:00:43 EDT) Tobacco: Use in Last 12 Months: [...] Updated: 12/28/2015 05:03:24 EDT by Sara Mcdonald, Rn) Nutrition/Health: Type of diet: several teeth removed in the last 6 months and having difficulty chewing. Regular, Caffeine intake amount: none. (Last Updated: 12/28/2015 05:02:33 EDT by Sara Mcdonald, Silvio) Exercise: Exercise duration: 0. 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 Highest education level: High school. Operates hazardous equipment: Yes. Workplace hazards: Heavy lifting/twisting. (Last Updated: 12/28/2015 04:59:07 EDT by Sara Mcdonald, Rn) Sexual: Sexually active: No. (Last Updated: 12/28/2015 05:03:16 EDT by Sara Mcdonald, Rn) Height and Weight, Clinical Dosing Height Source : Stated Height Entry Format : [place] Height, Feet : 6 ft(Converted to: 183 cm, 72 Inch) Height, Inches : 0 Inch(Converted to: 0 ft 0 Inch, 0.00 cm) Clinical Height : 182.88 cm Weight Source : Bed scale Weight Entry Format : [place] Clinical Dosing Weight : 78.21 kg Weight, Pounds : 172 lb Weight, Ounces : 1 oz Body Surface Area (BSA) : 2 m2 Body Mass Index : 23.4 kg/m2 [place] Body Weight : 77 kg Heather Daniels Rn - 03/14/2020 9:46 EDT Infectious Disease History Has the patient ever been tested for COVID-19? : No, Patient stated COVID19 Screening : No Experiencing Infectious Disease Symptoms : No symptoms Physical contact outside [place] in the last 30 days : No Infectious Disease Symptoms Score : 0 Infectious Disease History : Influenza Tuberculosis Symptoms : None Heather Daniels Rn - 03/14/2020 9:46 EDT Influenza Vaccine Asmt, Adult Previous Vaccines from Immunization Schedule : No qualifying data available. Influenza Immunization, Current Season : Yes Heather Daniels Rn - 03/14/2020 9:46 EDT Pneumococcal Vaccine Previous Vaccines from Immunization Schedule : No qualifying data available. Pneumonia Immunization Received : Yes Heather Daniels Rn - 03/14/2020 9:46 EDT Nutrition History Feeding Ability : Independent Adaptive Feeding Equipment : None Adaptive Feeding Equipment : Regular, Mechanical soft Oral Medication Administration : By mouth Eating Poorly Due to Decreased Appetite : No Unplanned Weight Loss in Past 3-6 Months : No Malnutrition Screening Tool Total(mal) : 0 Malnutrition Screening Tool Risk Level : Patient not at risk Heather Daniels Rn - 03/14/2020 9:46 EDT [place] Suicide Severity Rating Scale (C-SSRS) CSSRS Past Month Wish to be : No CSSRS Past Month Suicidal Thoughts : No CSSRS Lifetime Suicide Behavior : No Suicide Severity Rating Score : 0 Suicide Severity Rating : No Additional Care Required at this time Heather Daniels Rn - 03/14/2020 9:46 EDT Psychosocial History Does Someone Depend on You for Care? : No Chronic/Terminal Illness w/Freq Visits : No Do You Have a History of the Following? : Patient denies history Currently in Unsafe Situation : No Heather Daniels Rn - 03/14/2020 9:46 EDT Sleep Apnea Risk Assmt Hx of Obstructive Sleep Apnea Diagnosis : No Snore Loudly : No Tired, Fatigued, or Sleepy During Day : Yes Observed Stopping Breathing During Sleep : No Have/Are Being Treated for Hypertension : Yes BMI Greater Than 35 kg/m2 : No Age over 50 Years Old : Yes Neck Circumference Greater Than 40 cm : No Gender Male : Yes STOP-BANG Sleep Apnea Risk Level Score : 4 Heather Daniels Rn - 03/14/2020 9:46 EDT Spiritual/Cultural Needs Any Spiritual/Cultural Needs or Requests : No Heather Daniels Rn - 03/14/2020 9:46 EDT Valuables and Belongings Valuables and Belongings : Clothing, Personal devices Clothing : Common streetwear, Other: shoes, belt, cap Clothing Disposition : Bedside, With family, With patient Personal Device Disposition : Bedside, With family, With patient Personal Devices : Glasses Heather Daniels Rn - 03/14/2020 9:46 EDT documented in this encounter Plan of Treatment Not on file documented as of this encounter Visit Diagnoses Not on filedocumented in this encounter Care Teams Director Agricultural Services Relationship Specialty Start Date End Date Allyson Avery, YOKO [address] [facility] [[email or web address]] [place] [id number] PCP - General Nurse Practitioner 6/7/23 documented as of this encounter
--- OUTSIDE RECORDS SUMMARY | 2024-07-21 17:16 | XMS_ITS | Encounter Summary ---
Author Organization [facility] In iatives Address [address] [place] [address] Care Team Providers Care Sales Operations Coordinator Name Role Phone Avery, Allyson YOKO Primary Care Provider + [phone] Encounter Details Date Type Department Care Team (Late st Contact Info) Description 03/14/2020 Transcribed Document [facility] [place] [address] [place] [address] ProviderTatiana MD [address] [place] [address] [phone] Social History Tobacco Use Types Packs/Day Years Used Date Smoking Tobacco: Never Assessed Sex and Gender Information Value Date Recorded Sex Assigned at Not on file Legal Sex Male 5:33 PM CDT Gender Identity Not on file Sexual Orientation Not on file documented as of this encounter Miscellaneous Notes * Cerner Conversion Note - Tatiana ProviderMD - 03/14/2020 8:00 AM CDT Consult Phone Call Documentation Entered On: 03/14/2020 11:57 EDT Performed On: 03/14/2020 8:00 EDT by Asuncion Erwin [facility] Phone Call for Consults Consult Phone Call/Page Attempt : First call Consult Reason : CAD Vtach Physician Requesting Consult : ROMAN NGUYEN MD-INT Physician Requested for Consult : JADA HOLBROOK MD-CAR Provider Service Notified Name : Cardiology Physician Covering for Consult : JOSHUA CHAPMAN APRN Date and Time Call Returned : 03/14/2020 11:55 EDT Asuncion Erwin [facility] - 03/14/2020 11:56 EDT documented in this encounter Plan of Treatment Not on file documented as of this encounter Visit Diagnoses Not on filedocumented in this encounter Care Teams Sales Operations Coordinator Relationship Specialty Start Date End Date Allyson Avery, YOKO [address] [facility] [address] [place] [id number] PCP - General Nurse Practitioner 02/06/23 documented as of this encounter
--- OUTSIDE RECORDS SUMMARY | 2024-07-21 17:16 | XMS_ITS | Encounter Summary ---
Author Organization [facility] In iatives Address [address] [place] [address] Care Team Providers Care Rock Wool Insulator Name Role Phone Bennie Allyson BABCOCK Primary Care Provider + [phone] Encounter Details Date Type Department Care Team (Late st Contact Info) Description 03/23/2020 Transcribed Document [facility] [place] [address] [place] [address] ProviderTatiana MD [address] [place] [address] [phone] Social History Tobacco Use Types Packs/Day Years Used Date Smoking Tobacco: Never Assessed Sex and Gender Information Value Date Recorded Sex Assigned at Not on file Legal Sex Male 5:33 PM CDT Gender Identity Not on file Sexual Orientation Not on file documented as of this encounter Miscellaneous Notes * Cerner Conversion Note - Tatiana Polanco MD - 03/23/2020 5:54 PM CDT Patient Education Materials Follows: Moderate Conscious Sedation, Adult, Care After These [...] you are awake and alert. ??? Take [id number]-[id number] and prescription medicines only as told by [...] 06/09/2014 Document Revised: 01/21/2017 Document Reviewed: 12/08/2016 [employer] Patient Education ? 2020 [employer] Procedures Pacemaker Implantation, Adult, Care After This sheet [...] these instructions at home: Medicines ??? Take [id number] and prescription medicines only as told by [...] the incision area clean and dry for 2?3 days after the procedure or as directed by your health care provider. It takes several weeks for the incision site to completely heal. ??? Do not take baths, swim, or use a hot tub for 7?10 days or as otherwise directed by your [...] ??? Your pacemaker battery will last for 5?15 years. Routine checks by your health care [...] 03/08/2006 Document Revised: 08/19/2019 Document Reviewed: 05/31/2017 [employer] Patient Education ? 2020 [employer] Fractured Pacemaker Lead Replacement The most [...] including vitamins, herbs, eye drops, creams, and xqsl-axj-idernyv medicines. ??? Any problems you or family [...] 09/18/2006 Document Revised: 09/08/2019 Document Reviewed: 07/09/2017 [employer] Patient Education ? 2019 [employer] documented in this encounter Plan of Treatment Not on file documented as of this encounter Visit Diagnoses Not on filedocumented in this encounter Care Teams Rock Wool Insulator Relationship Specialty Start Date End Date Allyson Avery APRN [address] [phone] PCP - General Nurse Practitioner 02/06/23 documented as of this encounter
--- OUTSIDE RECORDS SUMMARY | 2024-07-21 17:16 | XMS_ITS | Encounter Summary ---
Author Organization [facility] In iatives Address [address] [place] [address] Care Team Providers Care Doctor Of Podiatric Medicine Name Role Phone Bennie Allyson BABCOCK Primary Care Provider + [phone] Encounter Details Date Type Department Care Team (Late st Contact Info) Description 03/16/2020 Transcribed Document [facility] [place] [facility] [place] [address] [place] [address] ProviderTatiana MD [address] [place] [address] [id number] Social History Tobacco Use Types Packs/Day Years Used Date Smoking Tobacco: Never Assessed Sex and Gender Information Value Date Recorded Sex Assigned at Not on file Legal Sex Male 5:33 PM CDT Gender Identity Not on file Sexual Orientation Not on file documented as of this encounter Miscellaneous Notes * Cerner Conversion Note - Tatiana Polanco MD - 03/16/2020 11:03 AM CDT DATE OF SERVICE: 03/16/2020 PROCEDURE PERFORMED: Dual-chamber pacemaker ICD upgrade. INDICATIONS: Mr. 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 Ventricular pacing since June of 2019 is 16.6% of the time. 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 Pacemaker interrogation demonstrates recurrent bouts of nonsustained ventricular tachycardia. 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 DESCRIPTION OF PROCEDURE: After the aseptic draping of the left pectoral region, the area over the generator was infiltrated with 1% lidocaine locally. An incision was carried down to the level of the capsule, from which generator was delivered. The generator was released from the chronic atrial and ventricular leads. Using an extrathoracic venography-guided micropuncture technique, the left axillary vein was cannulated with a guidewire. A sheath and dilator assembly set was advanced such that a new [employer] child care team lead model 7122Q, serial #[id number], could be actively fixed to the right ventricular apex where the capture threshold was 0.75 V at a pulse width of 0.5 milliseconds with a sensed R-wave of 5.3 mV. The high-voltage lead impedance was 68 ohms. The lead was affixed to the posterior aspect of the capsule using interrupted 0 silk sutures around the retention collar. The retention collar at the chronic right ventricular paced sense lead was released. The retraction screw was retracted. The lead was extracted in totality using gentle manual traction and rotation. The chronic right atrial lead is a [employer]onic lead model 5076, serial #[id number], had a chronic capture threshold of 0.5 V with lead impedance of 400 ohms, sensed P-wave greater than [address] pulse generator model BE2062, serial #[id number], was attached to the leads. The pocket was revised to accommodate the larger generator. Hemostasis was achieved. The wound was irrigated with antibiotic solution. Thrombin was instilled in the pocket. The generator was placed in a TYRX patch. The system was placed in the pocket. Interrupted 2-0 and running 3-0 Vicryl sutures were used to close the wound at the deep and superficial subcutaneous levels, running 4-0 Vicryl suture was used to close the wound at subcuticular level. Medical adhesive was placed over the incision followed by placement of Aquacel patch. The patient tolerated the procedure well and left the lab in stable condition. COMPLICATIONS: None. ESTIMATED BLOOD LOSS: Less than 20 mL. CONTRAST ADMINISTERED: 15 mL. COMPLICATIONS: None. SPECIMEN REMOVED: None. RADIATION EXPOSURE: 24 mGy AK. RECOMMENDATIONS: Standard postop wound care, device clinic followup, and home remote monitoring. /[id number] MD CATALINO Bennett/AQ / TCR / MODL /[id number] Electronically signed by Angel, Nick Conversion Last Model Department Supervisor Cerner at 12/20/2022 12:11 PM CDT documented in this encounter Plan of Treatment Not on file documented as of this encounter Visit Diagnoses Not on filedocumented in this encounter Care Teams Doctor Of Podiatric Medicine Relationship Specialty Start Date End Date Allyson Avery, YOKO [address] [phone] PCP - General Nurse Practitioner 02/06/23 documented as of this encounter
--- OUTSIDE RECORDS SUMMARY | 2024-07-21 17:16 | XMS_ITS | Encounter Summary ---
Author Organization [facility] In [facility] Address [address] [place] [address] Care Team Providers Care Straightener Name Role Phone Karlene Avery APRN Primary Care Provider + [phone] Encounter Details Date Type Department Care Team (Late st Contact Info) Description 03/17/2020 Transcribed Document [facility] [address] [place] [id number] ProviderTatiana MD [address] [place] [id number] Social History Tobacco Use Types Packs/Day Years Used Date Smoking Tobacco: Never Assessed Sex and Gender Information Value Date Recorded Sex Assigned at Not on file Legal Sex Male 5:33 PM CDT Gender Identity Not on file Sexual Orientation Not on file documented as of this encounter Miscellaneous Notes * Cerner Conversion Note - Tatiana Polanco MD - 03/17/2020 10:05 AM CDT [facility] [place] [address] MEET MENCHACA :1940 Visit Time:03/14/2020 Your Visit Summary Your Care Team Admitting Physician - ROMAN NGUYEN MD-[place] GUILLERMO MD-[facility] PHY, UNKNOWN Attending Physician - ROMAN NGUYEN MD-[place] GUILLERMO MD-EMR Primary Care Physician - KARELNE AVERY APRN-[facility] Referring Physician - SELF, REFERRED (REF), -UNK Your Diagnosis Atherosclerotic heart disease of [place] coronary artery without angina pectoris, Atherosclerotic heart disease of [place] coronary artery without angina pectoris Elevated troponin HTN - Hypertension Near syncope possible TIA Palpitations Syncope/Near syncope These Are Your Goals remain free of falls for duration of admission Discharge Vitals Heart Rate (Monitored) 75 Respiratory Rate 16 Blood Pressure 108/68 What to do next Instructions From Your Care Team Please STOP takin. Amlodipine 2. Metoprolol - new medication is Coreg (Carvedilol) 3. Lisinopril/HCTZ - new medication is plain Lisinopril Discharge Follow Up Instructions: Follow-Up Appointments Follow Up with ANISH SAHU When 03/30/2020 03:00 PM EDT Comments 03/30 3pm Where: [address] [place] [address]- Business (1) Follow Up with KARLENE AVERY APRN-FAM When Within 1 week Where: [address] [place] [address]- Medications What How Much When Instructions Next Dose acetaminophen (Tylenol 325 mg oral tablet) 2 Tablet(s) Oral Every 4 Hours as needed for Pain (Mild 1-3) carvedilol (Coreg 25 mg oral tablet) 1 Tablet(s) Oral Two Times A Day Pickup at [facility] lisinopril (lisinopril 20 mg oral tablet) 1 Tablet(s) Oral Every Day This replaces Lisinopril/ HCTZ. Pickup at [facility] allopurinol (allopurinol 100 mg oral tablet) 1 [...] oral capsule) 2 Capsule(s) Oral Every Day Pharmacy Information [facility]: [address] [place], [place] [id number] [phone] Take your medications faithfully. Do NOT skip [...] Allergies Immunizations This Visit No Immunizations Found Stroke/TIA Instructions Mutually Agreed Upon Goals My LDL Level: My LDL Level: [employer] Biventricular Pacemaker Implantation, Care After This sheet gives you information about how to care for yourself after your procedure. Your health care provider may also give you more specific instructions. If you have problems or questions, contact your health care provider. What can I expect after the procedure? After the procedure, it is common to have: ??? Mild pain or soreness in your chest for several days. ??? A small amount of blood or clear fluid coming from your incision. ??? A slight bump in your chest where the pulse generator was placed. You may be able to feel the generator under your skin. This is normal. Follow these instructions at home: Medicines ??? Take qver-fyp-njykdsk and prescription medicines only as told by your health care provider. ??? Do not take any new medicines without asking your health care provider first. ??? If you were prescribed an antibiotic medicine, take it as told by your health care provider. Do not stop taking the antibiotic even if you start to feel better. ??? Ask your health care provider if the medicine prescribed to you requires you to avoid driving or using heavy machinery. Incision care ??? Keep your incision area clean and dry. ??? Avoid rubbing the incision and the area around the incision. ??? Follow instructions from your health care provider about how to take care of your incision. Make sure you: ? Wash your hands with soap and water before and after you change your bandage (dressing). If soap and water are not available, use hand diesel retrofit designer. ? Change your dressing as told by your health care provider. ? Leave stitches (sutures), skin glue, or adhesive strips in place. These skin closures may need to stay in place for 2 weeks or longer. If adhesive strip edges start to loosen and curl up, you may trim the loose edges. Do not remove adhesive strips completely unless your health care provider tells you to do that. ??? Check your incision area every day for signs of infection. Check for: ? More redness, swelling, or pain. ? More fluid or blood. ? Warmth. ? Pus or a bad smell. Activity ??? Return to your normal activities as told by your health care provider. Ask your health care provider what activities are safe for you. ??? Do not lift anything that is heavier than 10 lb (4.5 kg), or the limit that you are told, until your health care provider says that it is safe. ??? Do not lift your upper arms above your shoulders for at least 6 weeks or as long as told by your health care provider. ? If you tend to sleep with your arms above your head, wear an arm restraint while you sleep to prevent this from happening. ? Avoid sudden movements that pull your upper arms far away from your body for at least 6 weeks. ??? Do a mild form of exercise at least once a day, such as walking. As you feel better, you may exercise more. ??? Gently stretch your shoulders at least once a day to help prevent stiffness in your chest. ??? Rest as told by your health care provider. ??? Avoid sitting for a long time without moving. Get up to take short walks every 1???2 hours. This is important to improve blood flow and breathing. Ask for help if you feel weak or unsteady. Electricity and magnetic gandhi ??? Avoid places and objects that have a strong electric or magnetic field. This includes: ? Airport security checkpoints. When you are at the airport, tell officials that you have a pacemaker and show them your pacemaker identification card. Officials will check you in safely so that your device is not damaged. Do not allow magnetic wands to be waved near your pacemaker. That can make the pacemaker stop working. ? Metal detectors. If you must pass through a metal detector, walk through it quickly. Do not stop under the detector or stand near it. ? Power plants. ? Large electrical generators. ? Radiofrequency transmission towers, such as mobile phone and radio towers. ??? Do not use amateur radio equipment or electric welding torches. If you are not sure whether something is safe to use, ask your health care provider. ? Some devices may be safe to use if you hold them at least 1 ft (0.3 m) from your pacemaker. These devices may include power tools, lawn mowers, and speakers. ??? When you talk on your mobile phone, hold it to your ear that is opposite from the side that your pacemaker is on. Do not leave your mobile phone in a pocket over your pacemaker. Long-term care ??? Carry your pacemaker identification card with you at all times, especially when you travel. ??? Consider wearing a medical alert bracelet or necklace that explains your pacemaker and any heart conditions you have. ??? Tell all health care providers who care for you that you have a pacemaker. This may prevent you from having an MRI because of the strong magnets used during that test. ??? Have your pacemaker checked every 3???6 months or as often as told by your health care provider. General instructions ??? Do not use any products that contain nicotine or tobacco, such as cigarettes, e-cigarettes, and chewing tobacco. These can delay incision healing after surgery. If you need help quitting, ask your health care provider. ??? Do not take baths, swim, or use a hot tub until your health care provider approves. ??? Do not wear tight clothing that could irritate the skin over your implant. ??? Follow instructions from your health care provider about eating or drinking restrictions. ??? Weigh yourself every day and write down your weight. ??? Keep all follow-up visits as told by your health care provider. This is important. Contact a health care provider if: ??? You gain 3 lb (1.4 kg) or more in 24 hours. ??? You have swelling in your feet, ankles, or legs. ??? You have an irregular heartbeat (palpitations). ??? You have more redness, swelling, or pain around your incision. ??? You have more fluid or blood coming from your incision. ??? Your incision area feels warm to the touch. ??? You have pus or a bad smell coming from your incision. Get help right away if you: ??? Have chest pain. ??? Have a heart rate that drops below the lowest rate set for your pacemaker. ??? Have difficulty breathing. ??? Suddenly feel light-headed. ??? Have a fever. ??? Faint. These symptoms may represent a serious problem that is an emergency. Do not wait to see if the symptoms will go away. Get medical help right away. Call your local emergency services (911 in the [place] Do not drive yourself to the hospital. Summary ??? After the procedure, it is common to have mild pain or soreness in your chest for several days. ??? Take cjwc-ajt-cnbhoai and prescription medicines only as told by your health care provider. ??? Ask your health care provider what activities are safe for you. ??? Carry your pacemaker identification card with you at all times, especially when you travel. This information is not intended to replace advice given to you by your health care provider. Make sure you discuss any questions you have with your health care provider. Document Released: 05/13/2013 Document Revised: 07/20/2019 Document Reviewed: 07/20/2019 [employer] Patient Education ?? 2020 [employer]. lisinopril (lyse [place] oh pril) Prinivil, Qbrelis, Zestril What is the most important information I should know about lisinopril? Do not use if you are , and tell your doctor right away if you become . If you have diabetes, do not use lisinopril together with any medication that contains aliskiren (a blood pressure medicine). Do not take lisinopril within 36 hours before or after taking medicine that contains sacubitril (such as Entresto). What is lisinopril? Lisinopril is an PRINCESS inhibitor that is used to treat high blood pressure (hypertension) in adults and children who are at least 6 years old. Lisinopril is also used to treat congestive heart failure in adults, or to improve survival after a heart attack. Lisinopril may also be used for purposes not listed in this medication guide. What should I discuss with my healthcare provider before taking lisinopril? You should not use lisinopril if you are allergic to it, or if you: ?? have a history of angioedema; ?? recently took a heart medicine called sacubitril; or ?? are allergic to any other PRINCESS inhibitor, such as benazepril, captopril, enalapril, fosinopril, moexipril, perindopril, quinapril, ramipril, or trandolapril. Do not take lisinopril within 36 hours before or after taking medicine that contains sacubitril (such as Entresto). If you have diabetes, do not use lisinopril together with any medication that contains aliskiren (a blood pressure medicine). You may also need to avoid taking lisinopril with aliskiren if you have kidney disease. Tell your doctor if you have ever had: ?? kidney disease (or if you are on dialysis); ?? liver disease; or ?? high levels of potassium in your blood. Do not use if you are , and tell your doctor right away if you become . Lisinopril can cause injury or to the unborn baby if you take the medicine during your second or third trimester. You should not breastfeed while using this medicine. How should I take lisinopril? Follow all directions on your prescription label and read all medication guides or instruction sheets. Your doctor may occasionally change your dose. Use the medicine exactly as directed. Drink plenty of water each day while you are taking this medicine. Lisinopril can be taken with or without food. Measure liquid medicine carefully. Use the dosing syringe provided, or use a medicine dose-measuring device (not a kitchen spoon). Your blood pressure will need to be checked often. Your kidney function and electrolytes may also need to be checked. Call your doctor if you are sick with vomiting or diarrhea, or if you are sweating more than usual. You can easily become dehydrated while taking lisinopril. This can lead to very low blood pressure, a serious electrolyte imbalance, or kidney failure. If you need surgery, tell the surgeon ahead of time that you are using lisinopril. If you have high blood pressure, keep using this medicine even if you feel well. High blood pressure often has no symptoms. You may need to use blood pressure medicine for the rest of your life. Store at room temperature away from moisture and heat. Do not freeze the oral liquid. What happens if I miss a dose? Take the medicine as soon as you can, but skip the missed dose if it is almost time for your next dose. Do not take two doses at one time. What happens if I overdose? Seek emergency medical attention or call the Poison Help line at . What should I avoid while taking lisinopril? Drinking alcohol can further lower your blood pressure and may increase certain side effects of lisinopril. Avoid becoming overheated or dehydrated during exercise, in hot weather, or by not drinking enough fluids. Lisinopril can decrease sweating and you may be more prone to heat stroke. Do not use potassium supplements or salt substitutes, unless your doctor has told you to. Avoid getting up too fast from a sitting or lying position, or you may feel dizzy. What are the possible side effects of lisinopril? Get emergency medical help if you have signs of an allergic reaction: hives; severe stomach pain; difficulty breathing; swelling of your face, lips, tongue, or throat. You may be more likely to have an allergic reaction if you are -[place]. Call your doctor at once if you have: ?? a light-headed feeling, like you might pass out; ?? fever, sore throat; ?? high potassium--nausea, weakness, tingly feeling, chest pain, irregular heartbeats, loss of movement; ?? kidney problems--little or no urination, swelling in your feet or ankles, feeling tired or short of breath; or ?? liver problems--nausea, upper stomach pain, itching, tired feeling, loss of appetite, dark urine, valentin-colored stools, jaundice (yellowing of the skin or eyes). Common side effects may include: ?? headache, dizziness; ?? cough; or ?? chest pain. This is not a complete list of side effects and others may occur. Call your doctor for medical advice about side effects. You may report side effects to FDA at 7-601-OXI-2938. What other drugs will affect lisinopril? Tell your doctor about all your other medicines, especially: ?? a diuretic or 'water pill'; ?? lithium; ?? gold injections to treat arthritis; ?? insulin or oral diabetes medicine; ?? a potassium supplement; ?? medicine to prevent organ transplant rejection--everolimus, sirolimus, tacrolimus, temsirolimus; or ?? NSAIDs (nonsteroidal anti-inflammatory drugs)--aspirin, ibuprofen (Advil, Motrin), naproxen (Aleve), celecoxib, diclofenac, indomethacin, meloxicam, and others. This list is not complete. Other drugs may affect lisinopril, including prescription and amfj-alv-opfxkbb medicines, vitamins, and herbal products. Not all possible drug interactions are listed here. Where can I get more information? Your pharmacist can provide more information about lisinopril. Remember, keep this and all other medicines out of the reach of children, never share your medicines with others, and use this medication only for the indication prescribed. Every effort has been made to ensure that the information provided by [employer]. ('[employer]') is accurate, up-to-date, and complete, but no guarantee is made to that effect. Drug information contained herein may be time sensitive. [employer] information has been compiled for use by healthcare practitioners and consumers in the [place] and therefore [employer] does not warrant that uses outside of the [place] are appropriate, unless specifically indicated otherwise. [employer] drug information does not endorse drugs, diagnose patients or recommend therapy. [employer] drug information is an informational resource designed to assist licensed healthcare practitioners in caring for their patients and/or to serve consumers viewing this service as a supplement to, and not a substitute for, the expertise, skill, knowledge and judgment of healthcare practitioners. The absence of a warning for a given drug or drug combination in no way should be construed to indicate that the drug or drug combination is safe, effective or appropriate for any given patient. [employer] does not assume any responsibility for any aspect of healthcare administered with the aid of information [employer] provides. The information contained herein is not intended to cover all possible uses, directions, precautions, warnings, drug interactions, allergic reactions, or adverse effects. If you have questions about the drugs you are taking, check with your doctor, nurse or pharmacist. Copyright 4804-9834 [employer]. Version: 15.03. Revision Date: 06/23/2019. carvedilol (BRIAN ve dil ole) Coreg, Coreg MAYDA What is the most important information I should know about carvedilol? You should not take carvedilol if you have asthma, bronchitis, emphysema, severe liver disease, or a serious heart condition such as heart block, 'sick sinus syndrome,' or slow heart rate (unless you have a pacemaker). What is carvedilol? Carvedilol is a beta-jacoby that is used to treat heart failure and hypertension (high blood pressure). Carvedilol is also used after a heart attack that has caused your heart not to pump as well. Carvedilol may also be used for purposes not listed in this medication guide. What should I discuss with my healthcare provider before taking carvedilol? You should not take carvedilol if you are allergic to it, or if you have: ?? asthma, bronchitis, emphysema; ?? severe liver disease; or ?? a serious heart condition such as severe heart failure, heart block, 'sick sinus syndrome,' or slow heart rate (unless you have a pacemaker). Tell your doctor if you have ever had: ?? coronary artery disease (clogged arteries); ?? slow heartbeats that have caused you to faint; ?? fluid retention; ?? asthma or other lung problems; ?? angina (chest pain); ?? diabetes (taking carvedilol can make it harder for you to tell when you have low blood sugar); ?? a thyroid disorder; ?? kidney disease; ?? circulation problems (such as Raynaud's syndrome); or ?? pheochromocytoma (tumor of the adrenal gland). Tell your doctor if you are or . Carvedilol is not approved for use by anyone younger than 18 years old. How should I take carvedilol? Follow all directions on your prescription label and read all medication guides or instruction sheets. Your doctor may occasionally change your dose. Use the medicine exactly as directed. Carvedilol works best if you take it with food, at the same time every day. Swallow the extended-release capsule whole and do not crush, chew, break, or open it. If you cannot swallow a capsule whole, open it and sprinkle the medicine into a spoonful of cold applesauce. Swallow the mixture right away without chewing. Do not save it for later use. If you are switched from carvedilol tablets to carvedilol extended-release capsules (Coreg CR), your daily total dose of this medicine may be higher or lower than before. Older adults may be more likely to become dizzy or feel faint when switching from tablets to extended-release capsules. Follow your doctor's instructions. Your blood pressure will need to be checked often. If you need surgery (including cataract surgery), tell your surgeon you currently use this medicine. You may need to stop for a short time. You should not stop using carvedilol suddenly. Stopping suddenly may cause chest pain or a heart attack. Follow your doctor's instructions about tapering your dose. If you are being treated for high blood pressure, keep using this medication even if you feel well. High blood pressure often has no symptoms. You may need to use blood pressure medication for the rest of your life. Carvedilol is only part of a complete treatment program that may also include diet, exercise, and weight control. Follow your doctor's instructions very closely. Store at room temperature away from moisture and heat. What happens if I miss a dose? Take the medicine as soon as you can, but skip the missed dose if it is almost time for your next dose. Do not take two doses at one time. What happens if I overdose? Seek emergency medical attention or call the Poison Help line at . Overdose symptoms may include uneven heartbeats, shortness of breath, bluish-colored fingernails, dizziness, weakness, fainting, and seizure (convulsions). What should I avoid while taking carvedilol? Avoid driving or hazardous activity until you know how this medicine will affect you. Your reactions could be impaired. Avoid getting up too fast from a sitting or lying position, or you may feel dizzy. What are the possible side effects of carvedilol? Get emergency medical help if you have signs of an allergic reaction: hives; difficulty breathing; swelling of your face, lips, tongue, or throat. Call your doctor at once if you have: ?? a light-headed feeling, like you might pass out; ?? slow or uneven heartbeats; ?? cold feeling or numbness in your fingers or toes; ?? chest pain, dry cough, wheezing, chest tightness; ?? heart problems--swelling, rapid weight gain, feeling short of breath; or ?? high blood sugar--increased thirst, increased urination, dry mouth, fruity breath odor. Common side effects may include: ?? dizziness; ?? slow heartbeats; ?? diarrhea; ?? weight gain; ?? dry eyes; or ?? problems wearing contact lenses. This is not a complete list of side effects and others may occur. Call your doctor for medical advice about side effects. You may report side effects to FDA at 8-824-FCD-1153. What other drugs will affect carvedilol? Sometimes it is not safe to use certain medications at the same time. Some drugs can affect your blood levels of other drugs you take, which may increase side effects or make the medications less effective. Other drugs may affect carvedilol, including prescription and tnpa-aau-yszrqig medicines, vitamins, and herbal products. Tell your doctor about all your current medicines and any medicine you start or stop using. Where can I get more information? Your pharmacist can provide more information about carvedilol. Remember, keep this and all other medicines out of the reach of children, never share your medicines with others, and use this medication only for the indication prescribed. Every effort has been made to ensure that the information provided by [employer]. ('[employer]') is accurate, up-to-date, and complete, but no guarantee is made to that effect. Drug information contained herein may be time sensitive. [employer] information has been compiled for use by healthcare practitioners and consumers in the [place] and therefore [employer] does not warrant that uses outside of the [place] are appropriate, unless specifically indicated otherwise. [employer] drug information does not endorse drugs, diagnose patients or recommend therapy. [employer] drug information is an informational resource designed to assist licensed healthcare practitioners in caring for their patients and/or to serve consumers viewing this service as a supplement to, and not a substitute for, the expertise, skill, knowledge and judgment of healthcare practitioners. The absence of a warning for a given drug or drug combination in no way should be construed to indicate that the drug or drug combination is safe, effective or appropriate for any given patient. [employer] does not assume any responsibility for any aspect of healthcare administered with the aid of information [employer] provides. The information contained herein is not intended to cover all possible uses, directions, precautions, warnings, drug interactions, allergic reactions, or adverse effects. If you have questions about the drugs you are taking, check with your doctor, nurse or pharmacist. Copyright 1013-5346 [employer]. Version: 16.01. Revision Date: 12/25/2018. Emergency Awareness and Preventative Care STROKE is [...] Assistance with quitting is available by contacting 7-423-HTBK-NOW. This is a free resource providing counseling, support, and referral. Or you may contact your personal physician. National Suicide Prevention Lifeline: The National Suicide Prevention [...] CPR? There are two easy steps: Call if you see a teen or adult [...] This Visit (last charted value for your 03/14/2020 visit) Hematology 03/15/2020 5:30 AM WBC: 4.1 K/uL -- Normal range between ( 3.6 and 9.5 ) RBC: 3.97 Million/uL -- Normal range between ( 4.20 and 5.70 ) Hct: 39.3 % -- Normal range between ( 40.1 and 51.0 ) Hgb: 13.3 g/dL -- Normal range between ( 13.5 and 17.3 ) Platelet Count: 149 K/uL -- Normal range between ( 163 and 369 ) MCH: 33.5 pg -- Normal range between ( 25.6 and 32.2 ) MCHC: 33.8 Gram/dL -- Normal range between ( 32.2 and 36.5 ) MCV: 99.0 fL -- Normal range between ( 79.0 and 94.8 ) Slide Review: No Eos %: 3.9 % -- Normal range between ( 0.0 and 7.0 ) Centre #: 0.41 K/uL -- Normal range between ( 0.16 and 1.00 ) Eos #: 0.16 x10(3)/uL -- Normal range between ( 0.00 and 0.80 ) Centre %: 10.1 % -- Normal range between ( 3.0 and 9.0 ) Baso %: 1.2 % -- Normal range between ( 0.0 and 1.5 ) Baso #: 0.05 x10(3)/uL -- Normal range between ( 0.00 and 0.20 ) RDW: 11.4 % -- Normal range between ( 11.7 and 14.9 ) Neut %: 55.0 % -- Normal range between ( 34.0 and 71.0 ) Neut #: 2.23 K/uL -- Normal range between ( 1.56 and 6.13 ) Lymph %: 29.3 % -- Normal range between ( 19.3 and 53.1 ) Lymph #: 1.19 x10(3)/uL -- Normal range between ( 1.00 and 3.90 ) MPV: 9.5 fL -- Normal range between ( 9.4 and 12.4 ) IG#: 0.02 x10(3)/uL -- Normal range between ( 0.00 and 0.05 ) IG%: 0.50 % -- Normal range between ( 0.00 and 0.60 ) Urinalysis 03/13/2020 10:00 PM Urine Nitrite: Negative Urine Leukocyte Esterase: Negative Urine Appearance: Clear Urine Glucose Dipstick: Negative Urine Blood Dipstick: Negative Urine Urobilinogen Dipstick: 0.2 EU/dL Urine Protein Dipstick: Negative Urine Color: Yellow Urine Ketones Dipstick: Negative Ur Mucous: Trace Urine pH Dipstick: 6.5 -- Normal range between ( 6.0 and 8.0 ) Urine Bilirubin Dipstick: Negative Urine Specific Cosby: 1.021 -- Normal range between ( 1.005 and 1.030 ) Urine Type.: [facility] General Chemistry 03/16/2020 0:17 AM Creatinine Level: 0.90 mg/dL -- Normal range between ( 0.70 and 1.30 ) Sodium Level: 139 mmol/L -- Normal range between ( 136 and 146 ) Potassium Level: 3.9 mmol/L -- Normal range between ( 3.5 and 5.1 ) Chloride Level: 106 mmol/L -- Normal range between ( 102 and 112 ) Carbon Dioxide Level: 28 mmol/L -- Normal range between ( 21 and 32 ) Anion Gap: 9 -- Normal range between ( 9 and 20 ) Bun/Creatinine: 22.2 -- Normal range between ( 8.0 and 20.0 ) Calcium Level: 8.9 mg/dL -- Normal range between ( 8.4 and 10.1 ) eGFR : >60 mL/min/1.73m2 eGFR NonAfrican: >60 mL/min/1.73m2 Glucose Level: 153 mg/dL -- Normal range between ( 74 and 106 ) Blood Urea Nitrogen: 20 mg/dL -- Normal range between ( 7 and 22 ) 03/15/2020 10:52 PM Glucose POC2: 158 mg/dL -- Normal range between ( 70 and 110 ) 03/15/2020 11:07 AM Device Comment 1: Device Comment 1 03/14/2020 8:34 AM Bilirubin Total: 0.7 mg/dL -- Normal range between ( 0.2 and 1.2 ) A/G Ratio: 1.1 -- Normal range between ( 1.1 and 2.5 ) ALT: 28 Units/Liter -- Normal range between ( 16 and 61 ) AST: 31 Units/Liter -- Normal range between ( 5 and 37 ) Globulin: 3.5 Gram/dL -- Normal range between ( 1.5 and 4.5 ) Alk Phos: 58 Units/Liter -- Normal range between ( 27 and 136 ) Magnesium Level: 1.8 mg/dL -- Normal range between ( 1.5 and 2.4 ) Protein Total: 7.2 Gram/dL -- Normal range between ( 6.4 and 8.2 ) Albumin Level: 3.7 Gram/dL -- Normal range between ( 3.4 and 5.0 ) 03/14/2020 4:30 AM Hgb A1C: 6.7 % eAVG Glucose: 146 mg/dL 03/13/2020 10:00 PM Lactic Acid Level: 1.5 mmol/L -- Normal range between ( 0.4 and 2.0 ) Cardiac Specific Markers 03/16/2020 0:17 AM Troponin I Ultra: 0.119 ng/mL -- Normal range between ( 0.015 and 0.045 ) 03/13/2020 10:00 PM ProBNP: 377 pg/mL -- Normal range between ( 0 and 450 ) Endocrinology 03/14/2020 8:34 AM TSH: 1.330 mcInt Units/mL -- Normal range between ( 0.358 and 3.740 ) Computed Tomography 03/13/2020 10:[address] Head WO: CT Head WO Diagnostic Radiology 03/16/2020 2:07 PM CR Chest 1 Vw Portable: CR Chest 1 Vw Portable Echo 03/14/2020 2:37 PM EC Echo Complete: EC Echo Complete Patient Name:MEET MENCHACA I have received and understand this information and was given the opportunity to ask questions. Patient/Abstract Manager Name: Patient/Abstract Manager Signature: Relationship to Patient: Clinician/Hospital Abstract Manager Signature: Date: Electronically signed by Angel, [facility] Conversion Automatic Punch Press Operator Tayo at 12/20/2022 12:09 PM CDT documented in this encounter Plan of Treatment Not on file documented as of this encounter Visit Diagnoses Not on filedocumented in this encounter Care Teams Straightener Relationship Specialty Start Date End Date Karlene Avery APRN [address] [place] [id number] PCP - General Nurse Practitioner 02/06/23 documented as of this encounter
--- OUTSIDE RECORDS SUMMARY | 2024-07-21 17:16 | XMS_ITS | Encounter Summary ---
Author Organization [facility] In [facility]atives Address [address] [place] [address] Care Team Providers Care Customer Service Supervisor Name Role Phone Allyson Avery YOKO Primary Care Provider + [phone] Encounter Details Date Type Department Care Team (Late st Contact Info) Description 03/17/2020 Transcribed Document [facility] [address] [place] [address] Jf Gallagher MD [address] [place] [address] [address] [place] [address] Social History Tobacco Use Types Packs/Day Years Used Date Smoking Tobacco: Never Assessed Sex and Gender Information Value Date Recorded Sex Assigned at Not on file Legal Sex Male 5:33 PM CDT Gender Identity Not on file Sexual Orientation Not on file documented as of this encounter Miscellaneous Notes * [employer] Conversion Note - Jf Gallagher MD - 03/17/2020 9:27 AM EDT Patient: PAT MENCHACA Age: 79 years Sex: Male : 1940 Associated Diagnoses: None Author: JF GALLAGHER MD-INT Subjective PCP: [facility] DOA: 03/13/2020 DOD: 03/17/2020 HPI: 79 year-old gentleman admitted to the hospital with a near syncopal episode and possibly V. tach CODE STATUS: Modified code as documented in the chart intubation and full treatment but no ACLS CONSULTS: Cardiology, [facility] WORKUP / PROCEDURES: Cardiac Cath, performed by Dr. Yoan Feldman DATE OF SERVICE: 03/15/2020 PROCEDURE PERFORMED: Left [...] the anterior wall. No mitral insufficiency noted. [place] CORONARY ARTERIOGRAPHY: Left coronary artery: Left main [...] management of ischemic coronary disease and cardiomyopathy. Electrophysiology - Ablation (Verified) DATE OF SERVICE: 03/16/2020 PROCEDURE PERFORMED: By Dr. Pérez Dual-chamber pacemaker ICD upgrade. INDICATIONS: Mr. Menchaca [...] advanced such that a new [employer] gluing crew leader model 7122Q, serial #[id number], could be actively fixed to the right [...] is a [employer]tronic lead model 5076, serial #[id number], had a chronic capture threshold of 0.5 V with lead impedance of 400 ohms, sensed P-wave greater than [address] [employer] pulse generator model MU0201, serial #[id number], was attached to the leads. The pocket [...] and left the lab in stable condition. HOSPITAL FOLLOWUP: 03/14/2020 Patient was admitted last [...] plan for AICD placement noted for today. 03/17/2020 Patient is resting in bed, looks comfortable, no distress noted. It is post upgrading of pacemaker to by ventricular AICD placement yesterday. Complaining of postprocedure pain but otherwise doing better. Son is at bedside. Cleared by cardiology for discharge. Discussed with the patient and son at length today. Health Status Allergies: Allergic Reactions (Selected) [...] Oral, Daily lisinopril: 20 mg, Oral, Daily Documented Medications Documented Aspirin Low Dose 81 [...] Daily, 30 Tab, 0 Refill(s), Home Medications (18) Active allopurinol 100 mg oral tablet 100 [...] Metanx oral capsule 1 Cap, Oral, BID Multiple Vitamins oral tablet 1 [...] 97 (MAR 17 05:34) 97.5 (MAR 16 18:) Mon HR 75 (MAR 17 05:34) 73 (MAR 16 11:30) 76 (MAR 16 14:00) Resp Rate 16 (MAR 17 05:34) 14 (MAR 16 11:30) 18 (MAR 16:16) SBP 108 (MAR 17 05:34) 94 (MAR 16 17:00) 127 (MAR 16:00) DBP 68 (MAR 17 05:34) L 26 (MAR 16 18:00) 73 (MAR 16:) MAP 27 (MAR 16 18:00) 27 (MAR 16 18:00) 88 (MAR 16:) SpO2 95 (MAR 17 05:34) L 93 (MAR 16:16) 100 (MAR 16:) General: Alert and oriented, No acute distress. [...] No focal deficits. Psychiatric: Cooperative. Results Review Radiology Results (Last 48 hours) [id number] -- 03/14/2020 08:12 CR Chest 1 Vw Portable (03/16/2020 14:07) Result: PORTABLE CHEST 03/16/2020 10:57 AM HISTORY: Pacemaker, possible pneumothorax.COMPARISON: 3 days prior.FINDINGS: Median sternotomy. Subsegmental atelectasis at the left base.Lungs otherwise clear. No effusion or pneumothorax. Dual-lead left paceris intact. No acute osseous finding.IMPRESSION: No post procedure complication.Images reviewed, interpreted, and dictated by Yoan Carpio, DO No qualifying data available Impression and Plan Assessment and Plan: Diagnosis. DIAGNOSIS at discharge: Near syncopal episode at home ??2, another one in the morning of 03/15/2020 in hospital. Cardiac arrhythmia, with recurrent nonsustained V. tach, status post upgrading of pacemaker to biventricular AICD on 03/16/2020 Ischemic coronary artery disease and history of CABG and PCI's, status post left heart catheterization on 03/15/2020 as reported above. Chronic systolic congestive heart failure ejection fraction of 40% Atrial fibrillation, sick sinus syndrome, dual-chamber permanent pacemaker placement Type 2 diabetes, continue to monitor blood glucose and sliding scale insulin coverage Essential hypertension / Hyperlipidemia Hard of hearing DC instructions 1- DC home today if okay with cardiology. 2- Follow with cardiology as instructed. 3- Follow up with PCP in 1 week Discharge Medications (19) Active allopurinol 100 mg oral tablet 100 mg = 1 Tab, Oral, Daily Aspirin Low Dose 81 mg oral tablet 1 Tab, Oral, Daily Cebria Memory Support Capsule 1 Cap, Oral, Daily Coenzyme Q10 200 mg oral capsule 2 Cap, Oral, Daily Colace 100 mg oral capsule 400 mg = 4 Cap, Oral, At Bedtime Coreg 25 mg oral tablet 25 mg = 1 Tab, Oral, BID - NEW per Cardiology Crestor 20 mg oral tablet 40 mg = 2 Tab, Oral, Saturday Fish Oil 1200 mg oral capsule 2,400 mg = 2 Cap, Oral, BID levothyroxine 75 mcg (0.075 mg) oral tablet 75 mcg = 1 Tab, Oral, Daily lisinopril 20 mg oral tablet 20 mg = 1 Tab, Oral, Daily Metanx oral capsule 1 Cap, Oral, BID Multiple Vitamins oral tablet 1 Tab, Oral, Daily NexIUM 40 mg oral delayed release capsule 40 mg = 1 Cap, Oral, Daily Osteo Bi-Flex Plus MSM 1 Tab, Oral, BID Plavix 75 mg, Oral, Daily - Continue if okay with Cardiology Ranexa 500 mg oral tablet, extended release 500 mg = 1 Tab, Oral, Daily Tylenol 325 mg oral tablet 650 mg = 2 Tab, PRN, Oral, Q4H Welchol 625 mg oral tablet 625 mg = 1 Tab, Oral, QAM Welchol 625 mg oral tablet 1,250 mg = 2 Tab, Oral, At Bedtime DC time spent: 36 minutes Cc DC summary to PCP, cardiology documented in this encounter Plan of Treatment Not on file documented as of this encounter Visit Diagnoses Not on filedocumented in this encounter Care Teams Customer Service Supervisor Relationship Specialty Start Date End Date Allyson Avery APRN [address] [address] PCP - General Nurse Practitioner 02/06/23 documented as of this encounter
--- OUTSIDE RECORDS SUMMARY | 2024-07-21 17:16 | XMS_ITS | Encounter Summary ---
Author Organization [facility] In iatives Address [address] [place] [address] Care Team Providers Care Principal Strategist Name Role Phone Allyson Avery APRN Primary Care Provider + [phone] Encounter Details Date Type Department Care Team (Late st Contact Info) Description 03/14/2020 Transcribed Document [facility] Family Medicine [address] [place] [address] ProviderTatiana MD [address] [place] [address] Social History Tobacco Use Types Packs/Day Years Used Date Smoking Tobacco: Never Assessed Sex and Gender Information Value Date Recorded Sex Assigned at Not on file Legal Sex Male 5:33 PM CDT Gender Identity Not on file Sexual Orientation Not on file documented as of this encounter Miscellaneous Notes * [employer]ner Conversion Note - Tatiana ProviderMD - 03/14/2020 9:24 AM CDT ED Event Note Entered On: 03/14/2020 9:24 EDT Performed On: 03/14/2020 9:24 EDT by Nancy Brandon RN ED Event Note ED Event Date/Time : 03/14/2020 9:24 EDT ED Description of Event : Pt report called to Nancy Hartman RN, RN - 03/14/2020 9:24 EDT Electronically signed by Aruna Ortiz Conversion Electronic Maintenance Supervisor [employer] at 12/20/2022 12:06 PM CDT documented in this encounter Plan of Treatment Not on file documented as of this encounter Visit Diagnoses Not on filedocumented in this encounter Care Teams Principal Strategist Relationship Specialty Start Date End Date Allyson Avery APRN [address] [place] [address] PCP - General Nurse Practitioner 02/06/23 documented as of this encounter
--- OUTSIDE RECORDS SUMMARY | 2024-07-21 17:16 | XMS_ITS | Encounter Summary ---
Author Organization [facility] In iatives Address [address] [place] [address] Care Team Providers Care Corporate Securities Research Analyst Name Role Phone Allyson Avery YOKO Primary Care Provider + [phone] Encounter Details Date Type Department Care Team (Late st Contact Info) Description 03/15/2020 Transcribed Document [facility] 1 [place] [address] Jf Gallagher MD [address] [place] [address] [address] [place] [address] Social History Tobacco Use Types Packs/Day Years Used Date Smoking Tobacco: Never Assessed Sex and Gender Information Value Date Recorded Sex Assigned at Not on file Legal Sex Male 5:33 PM CDT Gender Identity Not on file Sexual Orientation Not on file documented as of this encounter Miscellaneous Notes * Cerner Conversion Note - Jf Gallagher MD - 03/15/2020 8:12 AM EDT Patient: PAT MENCHACA Age: 79 years Sex: Male : 1940 Associated Diagnoses: None Author: JF GALLAGHER MD-INT Subjective PCP: [facility] DOA: 03/13/2020 DOD: HPI: 79 year-old gentleman admitted to the hospital with a near syncopal episode and possibly V. tach CODE STATUS: Modified code as documented in the chart intubation and full treatment but no ACLS CONSULTS: Cardiology, [facility] WORKUP / PROCEDURES: HOSPITAL FOLLOWUP: 03/14/2020 Patient was admitted last [...] Denies chest pain or dyspnea. No fever. Health Status Allergies: Allergic Reactions (Selected) No Known Allergies Current medications: (Selected) Inpatient Medications Ordered Coenzyme Q10: 400 mg, Oral, Daily Colace: 400 mg, Oral, At Bedtime Core mg, Oral, BID Crestor: 40 mg, Oral, Saturday Fish Oil: 2,000 mg, Oral, Daily Metanx Oral Cap: 1 Cap, Oral, BID MiraLax: 17 Gram, Oral, Daily Plavix: 75 mg, Oral, Daily Protonix: 40 mg, Oral, Daily Ranexa: 500 mg, Oral, Daily Tylenol: 650 mg, Oral, Q4H, PRN: Pain (Mild 1-3) allopurinol: 100 mg, Oral, Daily aspirin: 81 [...] 24 hrs) Last Charted Minimum Maximum Temp 97.7 (MAR 15 06:00) 97.7 (MAR 15 06:00) 98.3 (MAR 14:) Mon HR 58 (MAR 15 06:00) 58 (MAR 15 06:00) 73 (MAR 14 21:49) Resp Rate 16 (MAR 15 06:00) 16 (MAR 15 06:00) H 21 (MAR 14 07:24) SBP 130 (MAR 15 06:00) 119 (MAR 14 18:14) 140 (MAR 14 09:42) DBP 75 (MAR 15 06:00) 62 (MAR 14:) 77 (MAR 14 09:42) MAP 92 (MAR 15 06:00) 81 (MAR 14:) 97 (MAR 14 09:42) SpO2 98 (MAR 15 06:00) 94 (MAR 14:) 100 (MAR 14 07:24) General: Alert and oriented, Mild distress. Eye: Pupils are equal, round and reactive to light, Extraocular movements are intact, Normal conjunctiva. HENT: Normocephalic, Oral mucosa is moist. Neck: Supple, Non-tender, No carotid bruit, No jugular venous distention. Respiratory: Respirations are non-labored. Breath sounds: Bilateral, Diminished. Cardiovascular: Normal rate, Irregular rhythm, S1, S2. Gastrointestinal: Soft, Non-tender, Normal bowel sounds. Genitourinary: No costovertebral angle tenderness. Musculoskeletal: Normal range of motion. Integumentary: Warm. Neurologic: Alert, Oriented, Normal motor function, No focal deficits. Psychiatric: Cooperative. Results Review Radiology Results (Last 48 hours) [id number] -- 03/14/2020 08:12 CT Head WO (03/13/2020 22:14) Result: HEAD [...] interpreted, and dictated by Tameka Root MD MAR 15 05:45 139 105 H 24 / H 133 4.1 28 0.90 \ MAR 15 05:45 \ L 13.3 / 4.1 L 149 / L 39.3 \ Impression and Plan Assessment and Plan: Diagnosis. DIAGNOSIS: Near syncopal episode at home ??2, another one in the morning of 03/15/2020 Cardiac arrhythmia, Possible V. 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 Chronic systolic congestive heart failure ejection fraction of 40% Atrial fibrillation, sick sinus syndrome, dual-chamber permanent pacemaker placement Type 2 diabetes, continue to monitor blood glucose and sliding scale insulin coverage Essential hypertension / Hyperlipidemia Hard of hearing PLAN Continue to monitor closely on telemetry floor Cardiology is on board and will follow recommendations Monitor and replace electrolytes Start PT and OT Follow other workup Discussed with the patient this morning. documented in this encounter Plan of Treatment Not on file documented as of this encounter Visit Diagnoses Not on filedocumented in this encounter Care Teams Corporate Securities Research Analyst Relationship Specialty Start Date End Date Allyson Avery, YOKO [address] [address] PCP - General Nurse Practitioner 02/06/23 documented as of this encounter
--- OUTSIDE RECORDS SUMMARY | 2024-07-21 17:16 | XMS_ITS | Encounter Summary ---
Author Organization [facility] [employer] [facility] In [facility]atives Address [address] [place] [address] Care Team Providers Care Financial Services Director Name Role Phone Bennie Allyson YOKO Primary Care Provider + [phone] Encounter Details Date Type Department Care Team (Late st Contact Info) Description 03/16/2020 Transcribed Document [facility] Family Medicine [address] [place] [address] ProviderTatiana MD [address] [place] [address] Social History Tobacco Use Types Packs/Day Years Used Date Smoking Tobacco: Never Assessed Sex and Gender Information Value Date Recorded Sex Assigned at Not on file Legal Sex Male 5:33 PM CDT Gender Identity Not on file Sexual Orientation Not on file documented as of this encounter Miscellaneous Notes * Cerner Conversion Note - Historical ProviderMD - 03/16/2020 2:05 PM CDT Attempt to Treat, OT Entered On: 03/16/2020 14:06 EDT Performed On: 03/16/2020 14:05 EDT by MILADY SERRANO OTR/Belia Attempt to Treat Unable to Treat Due To : Patient on hold Inability to Treat Comment : Pt having x-ray done in room at this time and just finished working with PT. PT stated that pt was very sleepy throughout session, therefore, OT will follow up tomorrow as schedule permits. Notification : KHRIS Valdes SHEENAGH E OTR/L - 03/16/2020 14:05 EDT documented in this encounter Plan of Treatment Not on file documented as of this encounter Visit Diagnoses Not on filedocumented in this encounter Care Teams Financial Services Director Relationship Specialty Start Date End Date Allyson Avery, YOKO [address] [address] [place] [id number] PCP - General Nurse Practitioner 02/06/23 documented as of this encounter
--- OUTSIDE RECORDS SUMMARY | 2024-07-21 17:16 | XMS_ITS | Encounter Summary ---
Author Organization [facility] In iatives Address [address] [place] [address] Care Team Providers Care Gatekeeper Name Role Phone Allyson Avery YOKO Primary Care Provider + [phone] Encounter Details Date Type Department Care Team (Late st Contact Info) Description 03/14/2020 Transcribed Document [facility] 1 [place] [address] Jf Gallagher MD [address] [place] [address] [address] [place] [address] Social History Tobacco Use Types Packs/Day Years Used Date Smoking Tobacco: Never Assessed Sex and Gender Information Value Date Recorded Sex Assigned at Not on file Legal Sex Male 5:33 PM CDT Gender Identity Not on file Sexual Orientation Not on file documented as of this encounter Miscellaneous Notes * Cerner Conversion Note - Jf Gallagher MD - 03/14/2020 10:24 AM EDT Patient: PAT MENCHACA Age: 79 years Sex: Male : 1940 Associated Diagnoses: None Author: JF GALLAGHER MD-INT Subjective PCP: [facility] DOA: 03/13/2020 DOD: HPI: 79 year-old gentleman admitted to the hospital with a near syncopal episode and possibly V. tach CODE STATUS: Modified code as documented in the chart intubation and full treatment but no ACLS CONSULTS: Cardiology, [place] WORKUP / PROCEDURES: HOSPITAL FOLLOWUP: 03/14/2020 Patient was admitted last night. Seen and examined in ER, chart and H&P reviewed this morning. He is resting in bed, denies chest pain or shortness of breath. No fever noted. Heart rate seems more stable. Discussed with the patient and daughter at bedside Health Status Allergies: Allergic Reactions (Selected) No Known Allergies Current medications: (Selected) Inpatient Medications Ordered Core mg, Oral, BID MiraLax: 17 Gram, Oral, Daily Plavix: 75 mg, Oral, Daily Ranexa: 500 mg, Oral, Daily Tylenol: 650 mg, Oral, Q4H, PRN: Pain (Mild 1-3) allopurinol: 100 mg, Oral, Daily aspirin: 81 mg, Oral, Daily colestipol: 2 Gram, Oral, QAM colestipol: 4 Gram, Oral, QPM insulin lispro sliding scale: Scale A:, SubCutaneous, [...] Last Charted Minimum Maximum Temp 98.2 (MAR 14 06:00) 97.6 (MAR 13:38) 98.1 (MAR 14 00:00) Mon HR 60 (MAR 14:24) 58 (MAR 13 22:30) 62 (MAR 13 22:00) Periph HR 70 (MAR 13:38) 70 (MAR 13:) 70 (MAR 13:) Resp Rate H 21 (MAR 14:24) 15 (MAR 14 02:00) H 26 (MAR 13 23:00) SBP 99 (MAR 14:) 99 (MAR 14) H 155 (MAR 13:) DBP L 58 (MAR 14) L 58 (MAR 14) 77 (MAR 13:38) MAP 73 (MAR 14:) 73 (MAR 14:) 100 (MAR 14 00:00) SpO2 100 (MAR 14) 98 (MAR 14 02:00) 100 (MAR 13:00) General: Alert and oriented, Mild distress. Eye: Pupils are equal, round and reactive to light, Extraocular movements are intact, Normal conjunctiva. HENT: Normocephalic, Oral mucosa is moist. Neck: Supple, Non-tender, No carotid bruit, No jugular venous distention. Respiratory: Respirations are non-labored. Breath sounds: Bilateral, Diminished. Cardiovascular: Normal rate, Irregular rhythm, S1, S2, Non-displaced PMI. Gastrointestinal: Soft, Non-tender, Normal bowel sounds. Genitourinary: No costovertebral angle tenderness. Musculoskeletal: Normal range of motion. Integumentary: Warm. Neurologic: Alert, Oriented, Normal motor function, No focal deficits. Psychiatric: Cooperative. Results Review Radiology Results (Last 48 hours) [id number] -- 03/14/2020 08:12 CT Head WO (03/13/2020 [...] and dictated by Tameka Root MD MAR 14 08:34 138 104 H 23 / H 119 4.5 29 1.00 \ MAR 14 08:34 \ 13.7 / 4.2 166 / 40.6 \ Impression and Plan Assessment and Plan: Diagnosis. DIAGNOSIS: Near syncopal episode at home ??2 Cardiac arrhythmia, Possible V. 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 Chronic systolic congestive heart failure ejection fraction of 40% Atrial fibrillation, sick sinus syndrome, dual-chamber permanent pacemaker placement Type 2 diabetes Essential hypertension Hyperlipidemia Hard of hearing PLAN Patient will be monitored closely on telemetry floor Appreciated cardiology input and follow closely Monitor and replace electrolytes Start PT and OT Syncopal workup is ongoing and follow closely Discussed with the patient and daughter at bedside in ER today Discussed with the cardiology team documented in this encounter Plan of Treatment Not on file documented as of this encounter Visit Diagnoses Not on filedocumented in this encounter Care Teams Gatekeeper Relationship Specialty Start Date End Date Allyson Avery, YOKO [address] [facility] [address] [place] [phone] PCP - General Nurse Practitioner 02/06/23 documented as of this encounter
--- OUTSIDE RECORDS SUMMARY | 2024-07-21 17:16 | XMS_ITS | Encounter Summary ---
Author Organization [facility] In iatives Address [address] [place] [address] Care Team Providers Care Director Of Grants Name Role Phone Bennie Allyson YKOO Primary Care Provider + [phone] Encounter Details Date Type Department Care Team (Late st Contact Info) Description 03/13/2020 Transcribed Document [facility] [place] [address] [place] [address] ProviderTatiana MD [address] [place] [address] Social History Tobacco Use Types Packs/Day Years Used Date Smoking Tobacco: Never Assessed Sex and Gender Information Value Date Recorded Sex Assigned at Not on file Legal Sex Male 5:33 PM CDT Gender Identity Not on file Sexual Orientation Not on file documented as of this encounter Miscellaneous Notes * Cerner Conversion Note - Tatiana ProviderMD - 03/13/2020 11:34 PM CDT Pain Assessment Entered On: 03/17/2020 5:38 EDT Performed On: 03/17/2020 3:43 EDT by Lorenzo Kathleen RN Intervention Information: acetaminophen Performed by Lorenzo Kathleen RN on 03/17/2020 02:43:00 EDT acetaminophen,650mg Oral,Pain (Mild 1-3) Pain Assessment Pain Scale Goal : 3 Pain Scale Used : 0-10 Scale Lorenzo Kathleen RN - 03/17/2020 5:37 EDT Pain Scale Intensity : 0 Lorenzo Kathleen RN - 03/17/2020 5:37 EDT Image 4 - Images currently included in the form version of this document have not been included in the text rendition version of the form. documented in this encounter Plan of Treatment Not on file documented as of this encounter Visit Diagnoses Not on filedocumented in this encounter Care Teams Director Of Grants Relationship Specialty Start Date End Date Allyson Avery, YOKO [address] [address] [place] [address] PCP - General Nurse Practitioner 02/06/23 documented as of this encounter
--- OUTSIDE RECORDS SUMMARY | 2024-07-21 17:16 | XMS_ITS | Encounter Summary ---
Author Organization [facility] In iatives Address [address] [place] [address] Care Team Providers Care Sales Service Promoter Name Role Phone Allyson Avery APRN Primary Care Provider + [phone] Encounter Details Date Type Department Care Team (Late st Contact Info) Description 03/15/2020 Transcribed Document [facility] [place] Medicine [address] [place] [address] ProviderTatiana MD [address] [place] [address] Social History Tobacco Use Types Packs/Day Years Used Date Smoking Tobacco: Never Assessed Sex and Gender Information Value Date Recorded Sex Assigned at Not on file Legal Sex Male 5:33 PM CDT Gender Identity Not on file Sexual Orientation Not on file documented as of this encounter Miscellaneous Notes * Cerner Conversion Note - Historical ProviderMD - 03/15/2020 2:40 PM CDT Attempt to Treat, OT Entered On: 03/15/2020 14:40 EDT Performed On: 03/15/2020 14:40 EDT by PAYTON GONZALEZ OTR/L Attempt to Treat Unable to Treat Due To : Patient on hold Inability to Treat Comment : Pt going for heart cath, will have bedrest after. Possible re-order if there is an intervention. PAYTON GONZALEZ OTR/Belia - 03/15/2020 14:40 EDT documented in this encounter Plan of Treatment Not on file documented as of this encounter Visit Diagnoses Not on filedocumented in this encounter Care Teams Sales Service Promoter Relationship Specialty Start Date End Date Allyson Avery, TOE FORMER [address] [address] PCP - General Nurse Practitioner 02/06/23 documented as of this encounter
--- OUTSIDE RECORDS SUMMARY | 2024-07-21 17:16 | XMS_ITS | Encounter Summary ---
Author Organization [facility] In iatives Address [address] [place] [address] Care Team Providers Care Sugar Mixer Name Role Phone Allyson Avery APRN Primary Care Provider + [phone] Encounter Details Date Type Department Care Team (Late st Contact Info) Description 03/15/2020 Transcribed Document [facility] [place] Family Medicine [address] [place] [address] ProviderTatiana MD [address] [place] [address] Social History Tobacco Use Types Packs/Day Years Used Date Smoking Tobacco: Never Assessed Sex and Gender Information Value Date Recorded Sex Assigned at Not on file Legal Sex Male 5:33 PM CDT Gender Identity Not on file Sexual Orientation Not on file documented as of this encounter Miscellaneous Notes * Cerner Conversion Note - Tatiana ProviderMD - 03/15/2020 3:20 PM CDT Initial Discharge Planning Entered On: 03/15/2020 15:28 EDT Performed On: 03/15/2020 15:20 EDT by CINDY GOMES RN-Experimental Welder Initial Assessment I Previously Documented Living Environment : No qualifying data available. 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 Allyson Avery Does Patient have PCP Listed? : Yes Legal Guardian : No Date Hospital Obtained Advance Directive : 03/14/2020 EDT CINDY GOMES RN-Experimental Welder - 03/15/2020 15:20 EDT Initial Assessment II Sensory and Motor Deficits : None Current Home Treatments and Equipment : None CINDY GOMES RN-Experimental Welder - 03/15/2020 15:20 EDT Discharge Needs I Anticipated Discharge Date : 03/17/2020 EDT Anticipated Discharge To, CM : Home with family care Current Home Treatment/Equipment : Current Home Treatment/Equipment No qualifying data available. Post Acute/Home Treatments : None Documentation Status Complete : Yes CINDY GOMES RN-Experimental Welder - 03/15/2020 15:20 EDT Discharge Needs II Professional Skilled Services : Professional Skilled Services No qualifying data available. Services and Community Resources : Home Health Needs Assistance with Transportation : No Discharge Options Discussed with Patient : Home Health CINDY GOMES RN-Experimental Welder - 03/15/2020 15:20 EDT Narrative Note Narrative Note : Readmission risk low ELOS: 3 days HD#1 Adm Dx: Chest Pain, HTN; PMH: CABG 12/2014, LHC 09/2019 cardiac stents placed, Medtronic PPM; interrogation in the ED revealed 4 episodes NSVT since 02/2020, on Telemetry 3 beat run VT. Plan [facility] today. 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 His daughter Jesika is also involved in his care [phone]. Patient's PCP is MARCO Duncan. 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 No prior rehab stay, home health, oxygen or DME. Patient's family will transport on discharge. DCP: Anticipate patient will discharge home with family. CM will follow for any needed referrals. CINDY GOMES RN-Experimental Welder - 03/15/2020 15:20 EDT documented in this encounter Plan of Treatment Not on file documented as of this encounter Visit Diagnoses Not on filedocumented in this encounter Care Teams Sugar Mixer Relationship Specialty Start Date End Date Allyson Avery APRN [address] [address] PCP - General Nurse Practitioner 02/06/23 documented as of this encounter
--- OUTSIDE RECORDS SUMMARY | 2024-07-21 17:16 | XMS_ITS | Encounter Summary ---
Author Organization [facility] In iatives Address [address] [place] [address] Care Team Providers Care Processing Rep Name Role Phone Bennie Allyson BABCOCK Primary Care Provider + [phone] Encounter Details Date Type Department Care Team (Late st Contact Info) Description 03/14/2020 Transcribed Document [facility] [place] Family Medicine [address] [place] [address] ProviderTatiana MD [address] [place] [address] Social History Tobacco Use Types Packs/Day Years Used Date Smoking Tobacco: Never Assessed Sex and Gender Information Value Date Recorded Sex Assigned at Not on file Legal Sex Male 5:33 PM CDT Gender Identity Not on file Sexual Orientation Not on file documented as of this encounter Miscellaneous Notes * Cerner Conversion Note - Tatiana ProviderMD - 03/14/2020 6:53 PM CDT Event Note Entered On: 03/14/2020 18:57 EDT Performed On: 03/14/2020 18:53 EDT by Heather Daniels Rn Event Note Event Date/Time : 03/14/2020 17:00 EDT Event Location : Other: nursing note Description of Event : Patient and his daughter was in the room. They refused insulin and do not want fingersticks. Patient states, I am not on insulin at home and he is not going to take insulin here . Heather Daniels Rn - 03/14/2020 18:53 EDT documented in this encounter Plan of Treatment Not on file documented as of this encounter Visit Diagnoses Not on filedocumented in this encounter Care Teams Processing Rep Relationship Specialty Start Date End Date Allyson Avery, PIPELINE OPERATOR [address] [address] PCP - General Nurse Practitioner 02/06/23 documented as of this encounter
--- OUTSIDE RECORDS SUMMARY | 2024-07-21 17:16 | XMS_ITS | Encounter Summary ---
Author Organization [facility] In iatives Address [address] [place] [address] Care Team Providers Care Staff Field Engineer Name Role Phone Karlene Avery APRN Primary Care Provider + [phone] Encounter Details Date Type Department Care Team (Late st Contact Info) Description 03/23/2020 Transcribed Document [facility] [place] Family Medicine [address] [place] [address] ProviderTatiana MD [address] [place] [address] Social History Tobacco Use Types Packs/Day Years Used Date Smoking Tobacco: Never Assessed Sex and Gender Information Value Date Recorded Sex Assigned at Not on file Legal Sex Male 5:33 PM CDT Gender Identity Not on file Sexual Orientation Not on file documented as of this encounter Miscellaneous Notes * Cerner Conversion Note - Tatiana Polanco MD - 03/23/2020 5:56 PM CD[place] [address] PAT MENCHACA :1940 Visit Time:03/23/2020 Your Visit Summary Your Care Team Admitting Physician - DUANE JIMENEZ MD-CAR Attending Physician - DUANE JIMENEZ MD-CAR Primary Care Physician - KARLENE AVERY APRN-[facility] Referring Physician - DUANE JIMENEZ MD-CAR Your [...] When In 12 days 04/04/2020 EDT Where: [address] [place] [address] OF CARDIOLOGY [place] [phone] Business (1) Medications What How Much When [...] you are awake and alert. ??? Take eiry-mvr-qmpiwen and prescription medicines only as told by [...] 06/09/2014 Document Revised: 01/21/2017 Document Reviewed: 12/08/2016 [employer] Patient Education ?? 2020 [employer] Pacemaker Implantation, Adult, Care After This [...] these instructions at home: Medicines ??? Take gbkf-qps-culrkyr and prescription medicines only as told by [...] 03/08/2006 Document Revised: 08/19/2019 Document Reviewed: 05/31/2017 [employer] Interactive Patient Education ?? 2020 [employer] Fractured Pacemaker Lead Replacement The most [...] including vitamins, herbs, eye drops, creams, and rcuj-iho-qcvibpg medicines. ??? Any problems you or family [...] 09/18/2006 Document Revised: 09/08/2019 Document Reviewed: 07/09/2017 [employer] Interactive Patient Education ?? 2020 [employer] Emergency Awareness and Preventative Care STROKE [...] Assistance with quitting is available by contacting 6-843-RAHDNOW. This is a free resource providing counseling, support, and referral. Or you may contact your personal physician. [place] Suicide Prevention Lifeline: The National Suicide Prevention [...] was given the opportunity to ask questions. Patient/Traveling Operator Name: Patient/Traveling Operator Signature: Relationship to Patient: Clinician/Hospital Traveling Operator Signature: Date: documented in this encounter Plan of Treatment Not on file documented as of this encounter Visit Diagnoses Not on filedocumented in this encounter Care Teams Staff Field Engineer Relationship Specialty Start Date End Date Avery, Karlene, MARKETING SERVICES MANAGER [address] [facility] [address] [place] [phone] PCP - General Nurse Practitioner 02/06/23 documented as of this encounter
--- OUTSIDE RECORDS SUMMARY | 2024-07-21 17:16 | XMS_ITS | Encounter Summary ---
Author Organization [facility] In iatives Address [address] [place] [address] Care Team Providers Care Regular Senior Care Provider Name Role Phone Bennie Allyson BABCOCK Primary Care Provider + [phone] Encounter Details Date Type Department Care Team (Late st Contact Info) Description 03/16/2020 Transcribed Document [facility] [place] Family Medicine [address] [place] [address] ProviderTatiana MD [address] [place] [id number] Social History Tobacco Use Types Packs/Day Years Used Date Smoking Tobacco: Never Assessed Sex and Gender Information Value Date Recorded Sex Assigned at Not on file Legal Sex Male 5:33 PM CDT Gender Identity Not on file Sexual Orientation Not on file documented as of this encounter Miscellaneous Notes * Cerner Conversion Note - Tatiana ProviderMD - 03/16/2020 3:01 PM CDT Initial Discharge Planning Entered On: 03/16/2020 15:05 EDT Performed On: 03/16/2020 15:01 EDT by IGNACIA LYONS, KHRIS-University Tutor Initial Assessment I Previously Documented Living Environment : Living Situation, CM: Home (03/15/20 15:20:00) Sensory and Motor Deficits: None (03/15/20 15:20:00) Current Home Treatments and Equipment: None (03/15/20 15:20:00) Services and Community Resources: Home Health (03/15/20 15:20:00) Living Situation : Home Patient Lives With : Adult Child/Children 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 : Yes Legal Guardian : No Date Hospital Obtained Advance Directive : 03/14/2020 EDT Is Guardianship Needed : No IGNACIA LYONS, RN-University Tutor - 03/16/2020 15:01 EDT Initial Assessment II Sensory and Motor Deficits : None Current Home Treatments and Equipment : None Services and Community Resources : Home Health, Other: None IGNACIA LYONS, RN-University Tutor - 03/16/2020 15:01 EDT Discharge Needs I Anticipated Discharge Date : 03/17/2020 EDT Anticipated Discharge To, CM : Home with family care Current Home Treatment/Equipment : Current Home Treatment/Equipment Current Home Treatments and Equipment: None (03/15/20 15:20:00) Post Acute/Home Treatments : None Documentation Status Complete : Yes IGNACIA LYONS, RN-University Tutor - 03/16/2020 15:01 EDT Discharge Needs II Professional Skilled Services : Professional Skilled Services Services and Community Resources: Home Health (03/15/20 15:20:00) Services and Community Resources : Home Health Needs Assistance with Transportation : No Discharge Options Discussed with Patient : Discharge transportation, DME, Home Health IGNACIA LYONS, RN-University Tutor - 03/16/2020 15:01 EDT Narrative Note Narrative Note : Pt admitted with presyncope and PPM interrogation showed several runs of VTach. Prior to adm, he was hypertensive at home and experiencing chest pressure and one or two episodes of everything going black . Pt received AICD implantation today and will likely d/c home tomorrow with assistance from his family members. No d/c needs are identified at this time. Historical Narrative Note : Readmission risk low ELOS: 3 days HD#1 Adm Dx: Chest Pain, HTN; PMH: CABG 12/2014, LHC 09/2019 cardiac stents placed, Medtronic PPM; interrogation in the ED revealed 4 episodes NSVT since 02/2020, on Telemetry 3 beat run VT. Plan LHC today. 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 His daughter Jesika is also involved in his care [phone]. Patient's PCP is MARCO Duncan. 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 No prior rehab stay, home health, oxygen or DME. Patient's family will transport on discharge. DCP: Anticipate patient will discharge home with family. CM will follow for any needed referrals. CINDY GOMES, RN-University Tutor - 03/15/20 15:28:05 IGNACIA LYONS, KHRIS-University Tutor - 03/16/2020 15:01 EDT Electronically signed by Angel [facility] Conversion Humanities Professor Cerner at 12/20/2022 12:20 PM CDT documented in this encounter Plan of Treatment Not on file documented as of this encounter Visit Diagnoses Not on filedocumented in this encounter Care Teams Regular Senior Care Provider Relationship Specialty Start Date End Date Allyson Avery APRN [address] [phone] PCP - General Nurse Practitioner 02/06/23 documented as of this encounter
--- OUTSIDE RECORDS SUMMARY | 2024-07-21 17:16 | XMS_ITS | Encounter Summary ---
Author Organization [facility] In iatives Address [address] [place] [address] Care Team Providers Care Two Way Radio Installer Name Role Phone Allyson Avery APRN Primary Care Provider Reason for Referral * Ultrasound (Routine) - Closed Specialty Diagnoses / Procedures Referred By Brandinac t Referred To Contact Diagnoses Cold extremities Procedures Ultrasound lower extremity arteries complete Allyson Avery APRN [address] [place] [phone] Phone: tel: fax: Referral ID Status Reason Start Date Expiration Date Visits Re quested Visits Authorized [id number] Closed 01/15/2023 07/14/2023 1 1 Reason for Visit * Ultrasound (Routine) - Closed Specialty Diagnoses / Procedures Referred By Contac t Referred To Contact Diagnoses Cold extremities Procedures Ultrasound lower extremity arteries complete Allyson Avery APRN [address] [place] [address] Phone: tel: fax: Referral ID Status Reason Start Date Expiration Date Visits Re quested Visits Authorized [id number] Closed 01/15/2023 07/14/2023 1 1 Encounter Details Date Type Department Care Team (Latest Contact Info) Description 02/06/2023 2:00 PM EDT - 02/06/2023 11:59 PM EDT Hospital Encounter [facility] Ultrasound [address] [place] [phone] Allyson Avery, FITNESS SALES ASSOCIATE [address] [place], [place] [phone] Cold extremities Discharge Disposition: Home or Self Care Social [...] Procedure Name Priority Date/Time Associated Diagnosis Comments US LOWER EXTREMITY ARTERIES COMPLETE Routine 02/06/2023 2:41 PM EDT Cold extremities documented in this encounter Results * Ultrasound lower extremity [...] FINDINGS: RIGHT LOWER EXTREMITY. ?Velocities cm/sec : TABLE ATTENDANT: WNL SFA Mid: WNL SFA Dist: WNL POP: WNL PT: WNL PT Ankle: WNL DP distal: WNL VONNIE: NA Waveforms are triphasic ??. LEFT LOWER EXTREMITY. ?Velocities cm/sec : TABLE ATTENDANT: WNL SFA Mid: WNL SFA Dist: WNL [...] FINDINGS: RIGHT LOWER EXTREMITY. Velocities cm/sec : TABLE ATTENDANT: WNL SFA Mid: WNL SFA Dist: WNL POP: WNL PT: WNL PT Ankle: WNL DP distal: WNL VONNIE: NA Waveforms are triphasic . LEFT LOWER EXTREMITY. Velocities cm/sec : TABLE ATTENDANT: WNL SFA Mid: WNL SFA Dist: WNL POP: WNL PT: WNL PT Ankle: WNL DP distal: WNL VONNIE: NA Waveforms are triphasic . IMPRESSION: No significant peripheral vascular disease . Images reviewed, interpreted, and dictated by Dr. Tameka Root. Transcribed by Latricia Morales (R). us Allyson Avery APRN IMG US ORDERABLES Final Resu lt documented in this encounter Visit Diagnoses Diagnosis Cold extremities documented in this encounter Care Teams Two Way Radio Installer Relationship Specialty Start Date End Date Allyson Avery APRN [address] [place] [phone] PCP - General Nurse Practitioner 02/06/23 documented as of this encounter
--- OUTSIDE RECORDS SUMMARY | 2024-07-21 17:16 | XMS_ITS | Encounter Summary ---
Author Organization [facility] Init iatives Address [address] [place] [address] Care Team Providers Care Production Ski Repairer Name Role Phone Unavailable Primary Care Provider Unavailabl e Encounter Details Date Type Department Care Team (Late st Contact Info) Description 03/23/2020 Historic Encounter [facility] [address] [place] [address] Provider, [facility] Historical Social History Tobacco Use Types Packs/Day [...] Procedure Name Priority Date/Time Associated Diagnosis Comments PLATELET COUNT Routine 03/23/2020 3:45 PM EDT documented in this encounter Results * Platelet count (03/23/2020 3:45 PM EDT) Platelet Count 167 163 - 369 K/uL 03/23/2020 7:59 PM EDT Blood 03/23/2020 3:45 PM EDT 03/23/2020 7:57 PM EDT [facility] Historical Provider LAB BLOOD ORDERABLES Fi nal Result [facility] [address] [place], [place] [address] [phone] documented in this encounter Visit Diagnoses Not on filedocumented in this encounter
--- OUTSIDE RECORDS SUMMARY | 2024-07-21 17:16 | XMS_ITS | Encounter Summary ---
Author Organization [facility] In iatives Address [address] [place] [address] Care Team Providers Care Water Inspector Name Role Phone Bennie Allyson YOKO Primary Care Provider + [phone] Encounter Details Date Type Department Care Team (Late st Contact Info) Description 03/15/2020 Transcribed Document [facility] Family Medicine [address] [place] [address] ProviderTatiana MD [address] [place] [id number] Social History Tobacco Use Types Packs/Day Years Used Date Smoking Tobacco: Never Assessed Sex and Gender Information Value Date Recorded Sex Assigned at Not on file Legal Sex Male 5:33 PM CDT Gender Identity Not on file Sexual Orientation Not on file documented as of this encounter Miscellaneous Notes * Cerner Conversion Note - Tatiana ProviderMD - 03/15/2020 3:07 PM CDT DATE OF SERVICE: 03/15/2020 PROCEDURE PERFORMED: Left heart catheterization, selective coronary arteriography, selective bypass angiography. INDICATIONS: Ventricular tachycardia, syncope, CAD and angina with known complex coronary disease. PROCEDURE IN DETAIL: RFA, 5-Bhutanese sheath, 5-Bhutanese Deo, Multipack, manual compression hemostasis after Mynx device. No adverse events. FINDINGS: LV pressure 148/16. Aortic pressure 150/78. No significant gradient across the aortic valve. LEFT VENTRICULOGRAM: Ventricular study demonstrates akinesia of the inferior wall with severe reduction in cardiac ejection fraction estimated to be between 30% and 35% with good movement of the anterior wall. No mitral insufficiency noted. YAVAPAI-APACHE CORONARY ARTERIOGRAPHY: Left coronary artery: Left main [...] management of ischemic coronary disease and cardiomyopathy. /[id number] Heath Feldman MD JCS/AQ / JCS / MODL /[id number] Electronically signed by Angel, [facility] Conversion Veneer Jointer Offbearer Giovananer at 12/20/2022 12:12 PM CDT documented in this encounter Plan of Treatment Not on file documented as of this encounter Visit Diagnoses Not on filedocumented in this encounter Care Teams Water Inspector Relationship Specialty Start Date End Date Allyson Avery, YOKO [address] [phone] PCP - General Nurse Practitioner 02/06/23 documented as of this encounter
--- OUTSIDE RECORDS SUMMARY | 2024-07-21 17:16 | XMS_ITS | Encounter Summary ---
Author Organization [facility] In iatives Address [address] [place] [address] Care Team Providers Care Cutter Machine Name Role Phone Bennie Allyson BABCOCK Primary Care Provider + [phone] Encounter Details Date Type Department Care Team (Late st Contact Info) Description 03/17/2020 Transcribed Document [facility] Family Medicine [address] [place] [address] ProviderTatiana MD [address] [place] [id number] Social History Tobacco Use Types Packs/Day Years Used Date Smoking Tobacco: Never Assessed Sex and Gender Information Value Date Recorded Sex Assigned at Not on file Legal Sex Male 5:33 PM CDT Gender Identity Not on file Sexual Orientation Not on file documented as of this encounter Miscellaneous Notes * Cerner Conversion Note - Tatiana Polanco MD - 03/17/2020 10:04 AM CDT Patient Education Materials Follows: Biventricular Pacemaker Implantation, Care After This sheet [...] these instructions at home: Medicines ??? Take faor-pxe-jgbeswi and prescription medicines only as told by [...] and water are not available, use hand artist scientific. ? Change your dressing as told by [...] Get up to take short walks every 1?2 hours. This is important to improve blood [...] test. ??? Have your pacemaker checked every 3?6 months or as often as told by [...] your chest for several days. ??? Take gskq-zia-cjcompa and prescription medicines only as told by [...] 05/13/2013 Document Revised: 07/20/2019 Document Reviewed: 07/20/2019 [employer] Interactive Patient Education ? 2020 [employer]. documented in this encounter Plan of Treatment Not on file documented as of this encounter Visit Diagnoses Not on filedocumented in this encounter Care Teams Cutter Machine Relationship Specialty Start Date End Date Allyson Avery, FORESTRY PROFESSOR [address] [phone] PCP - General Nurse Practitioner 02/06/23 documented as of this encounter
--- OUTSIDE RECORDS SUMMARY | 2024-07-21 17:17 | XMS_ITS | Encounter Summary ---
Author Organization [facility] In iatives Address [address] [place] [address] Care Team Providers Care Tassel Making Machine Operator Name Role Phone Allyson Avery APRN Primary Care Provider + [phone] Encounter Details Date Type Department Care Team (Late st Contact Info) Description 07/02/2019 Transcribed Document [facility] Family Medicine [address] [place] [address] ProviderTatiana MD [address] [place] [address] Social History Tobacco Use Types Packs/Day Years Used Date Smoking Tobacco: Never Assessed Sex and Gender Information Value Date Recorded Sex Assigned at Not on file Legal Sex Male 5:33 PM CDT Gender Identity Not on file Sexual Orientation Not on file documented as of this encounter Miscellaneous Notes * Cerner Conversion Note - Tatiana ProviderMD - 07/02/2019 11:09 AM CDT Patient: PAT MENCHACA Age: 78 years Sex: Male : 1940 Associated Diagnoses: None Author: JOSHUA CHAPMAN APRN [facility] CARDIOLOGY PROGRESS NOTE: DIAGNOSIS: 1. CP SUBJECTIVE: no complaints, eager for discharge Vitals Signs (last 24 hrs) Last Charted Minimum Maximum Temp 98.3 (JUL 02 06:18) 97.9 (JUL 01 15:30) 99.6 (JUL 01 22:24) Apical HR 69 (JUL 02 09:06) 69 (JUL 02 09:06) 72 (JUL 01 20:52) Mon HR 61 (JUL 02 06:18) 55 (JUL 02 02:34) 71 (JUL 01 21:00) Resp Rate 16 (JUL 02 06:18) 16 (JUL 02 02:34) 18 (JUL 01 15:30) SBP 120 (JUL 02 06:18) 110 (JUL 01 22:24) 123 (JUL 01 18:30) DBP 72 (JUL 02 06:18) L 58 (JUL 01 22:24) 72 (JUL 02 06:18) MAP 87 (JUL 02 06:18) 74 (JUL 01 21:00) 92 (JUL 01 18:30) SpO2 96 (JUL 02 08:00) 94 (JUL 01 22:24) 97 (JUL 01 15:30) Clinical Weight CLINICALWEIGHT: 82.73 kg (07/01/19 00:29:00) Routine Weight Calculation: 82.3 kg (07/02/19 04:00:00) Routine Weight Entry Format: [place] (07/02/19 04:00:00) Routine Weight Source: Bed scale (07/02/19 04:00:00) Routine Weight, Kilograms: 78.8 kg (07/01/19 04:00:00) Routine Weight, Ounces: 1 oz (07/02/19 04:00:00) Routine Weight, Pounds: 181 lb (07/02/19 04:00:00) Estimated Clinical Dosing Weight: 82.73 kg (07/01/19 03:26:00) [place] Body Weight: 70 kg (07/01/19 03:26:00) Intake & Output Totals Last 24 Hours (7a-7a) Intake (2 Events) Oral Intake (480 mL) Output (0 Events) No output events found in the last 24 hours. Input Total: 480 mL Output Total: 0 mL Balance: 480 mL TELE: NSR Blood Gases (Current Encounter/Past 24 Hours) No Blood Gas Results Found (Past 24 Hours) Labs (Last four charted values) WBC 9.2 (JUL 02) H 11.2 (JUL 01) HB L 13.0 (JUL 02) 14.0 (JUN 30) HCT L 38.6 (JUL 02) 40.7 (JUL 01) Plt 170 (JUL 02) 189 (JUL 01) Na 136 (JUL 02) 140 (JUL 01) K 3.9 (JUL 02) 4.3 (JUL 01) Cl 105 (JUL 02) 106 (JUL 01) CO2 24 (JUL 02) 26 (JUL 01) BUN 16 (JUL 02) 20 (JUL 01) Cr 1.10 (JUL 02) 1.30 (JUL 01) Glu R H 143 (JUL 02) H 186 (JUL 01) Ca 9.1 (JUL 02) 9.3 (JUL 01) AST 26 (JUL 01) ALT 29 (JUL 01) ALK P 66 (JUL 01) T Bili 1.1 (JUL 01) PTN 7.3 (JUL 01) ALB 4.0 (JUL 01) Troponin H 0.137 (JUL 01) H 0.153 (JUL 01) EXAM: Alert & Oriented, No apparent distress, dgtr at bedside HEAD&NECK: No JVD, No carotid bruit, No masses CORONARY: RRR, S1/S2, No murmurs LUNGS: CTA/B, No rhonchi, No wheeze ABDOMEN: Soft, Non-tender, Positive Bowel sounds EXTREMITIES: No edema, No cyanosis, Pedal pulses palpable IMPRESSION/PLAN: Chest pain with estevez zone troponin dapt- aspirin, plavix continue ranexa, statin, pat, bb CAD with history of prior CABG Cardiac cath 12/09/2014 revealed 1/3 grafts occluded and received BMS to OM 2 and OM 3. EF was 35-40%. The patient was started on Plavix and Ranexa. 10/2016 he presented with chest pain and estevez zone troponin. Cath revealed significant stenosis in the SVG to OM2/3, treated with 4.0 x 32mm Synergy EMANUEL. Moderate lesion just distal to the MONROY anastomosis to the LAD, 50-70% severity. SSS s/p Medtronic PPM HTN well controlled on current regimen HLP statin Hypothyroidism Ok to discharge from a cardiac standpoint Follow up with Francia one month Adolfo Martinez documented in this encounter Plan of Treatment Not on file documented as of this encounter Visit Diagnoses Not on filedocumented in this encounter Care Teams Tassel Making Machine Operator Relationship Specialty Start Date End Date Allyson Avery, ROOF TILE LAYER [address] [place] [address] PCP - General Nurse Practitioner 02/06/23 documented as of this encounter
--- OUTSIDE RECORDS SUMMARY | 2024-07-21 17:17 | XMS_ITS | Encounter Summary ---
Author Organization [facility] In iatives Address [address] [place] [address] Care Team Providers Care Manager Utilization Name Role Phone AveryAllyson la YOKO Primary Care Provider + [phone] Encounter Details Date Type Department Care Team (Late st Contact Info) Description 07/01/2019 Transcribed Document [facility] Family Medicine [address] [place] [address] ProviderTatiana MD [address] [place] [phone] Social History Tobacco Use Types Packs/Day Years Used Date Smoking Tobacco: Never Assessed Sex and Gender Information Value Date Recorded Sex Assigned at Not on file Legal Sex Male 5:33 PM CDT Gender Identity Not on file Sexual Orientation Not on file documented as of this encounter Miscellaneous Notes * Cerner Conversion Note - Tatiana ProviderMD - 07/01/2019 1:52 AM CDT Patient: PAT MENCHACA Age: 78 years Sex: Male : 1940 Associated Diagnoses: Chest pain; Elevated troponin Author: SIMON PALACIOS PA-C Basic Information Additional information: Chief Complaint from Nursing Triage Note : Chief Complaint 07/01/2019 0:29 EDT Chief Complaint patient with complaints of chest pain that started around 2200, states NTG x1 and had relief of pain. . History of Present Illness The patient presents with chest pain and Patient is 78-year-old male with hypertension hyperlipidemia coronary artery disease and sick sinus syndrome with pacemaker, he presents the emergency department with complaint of diffuse chest pain that started around 10 PM, he reports that he went to bed early because he wishes feeling that in general he reports that he had several episodes of sweating one episode of vomiting and after this he took a nitroglycerin which improved his chest pain approximately 15 minutes later patient decided to come to the emergency department given these are the same symptoms as his last cardiac event which required intervention. Patient denies any fever chills headache dizziness blurred vision cough congestion shortness of breath abdominal pain numbness tingling decreased range of motion lower extremity edema. Review of Systems Additional review of systems information: All other systems reviewed and otherwise negative. Health Status Allergies: Allergic Reactions (Selected) No Known Allergies. Medications: (Selected) Prescriptions Prescribed Nitrostat 0.4 mg sublingual tablet: 1 Tab, SubLINgual, Q5Min, PRN: Chest Pain, 100 Tab, 11 Refill(s) Plavix 75 mg oral tablet: 1 Tab, Oral, Daily, 30 Tab, 11 Refill(s) Voltaren 1% topical gel: 2 Gram, Topical, QID, 240 Gram, 11 Refill(s) Documented Medications Documented Aspirin Low Dose [...] MSM: 1 Tab, Oral, BID, 0 Refill(s) Ranexa 500 mg oral tablet, [...] 1 Tab, Oral, Daily, 30 Tab, 0 Refill(s). Immunizations: Per nurse's notes. Past Medical/ Family/ Social History Medical history Reviewed as documented in chart. Surgical history: coronary stents in 2014 at 74 Years. cardiac catheterization in 2014 at 74 Years. Polyp removal surgery in 2013 at 73 Years. left arm surgery in 2003 at 63 Years. CABG in 1996 at 56 Years., Reviewed as documented in chart. Family history: No family history items have been selected or recorded., Reviewed as documented in chart. 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 Problem list: Active Problems (11) Allergic rhinitis Angina Arthritis Cardiac arrhythmia Coronary artery disease Hard of hearing Hyperlipidemia Hypertension Myocardial infarction Renal calculi Stented coronary artery , per nurse's notes. Physical Examination Vital Signs Vital Signs/Vital Measures 07/01/2019 1:01 EDT Oxygen Therapy Mode Room air 07/01/2019 0:29 EDT Systolic Blood Pressure 143 mmHg HI Diastolic Blood Pressure 61 mmHg Temperature Source Oral Temperature Mode Fahrenheit Temperature, Fahrenheit 98.1 Deg F Clinical Temperature, C 36.7 Deg C Peripheral Pulse Rate 73 bpm Respiratory Rate 18 Breaths/Min Oxygen Saturation 96 % Oxygen Therapy Mode Room air . Measurements 07/01/2019 0:29 EDT Height Source Stated Height Entry Format Knott Height/Length, VIETNAMESE (ft) 5 ft Height/Length VIETNAMESE 9 Inch CLINICALHEIGHT 175.26 cm Emmett Body Weight 69.73 kg Weight Source, ED Critical estimated dosing weight Weight Entry Format Knott Weight Kiswahili lb 182 lb CLINICALWEIGHT 82.73 kg Body Surface Area (BSA) 1.99 m2 Body Mass Index 26.9 kg/m2 HI . Oxygen Saturation 07/01/2019 0:29 EDT Oxygen Saturation 96 % . General: Alert, no acute distress. Skin: Warm, dry, pink, intact. Head: Normocephalic, atraumatic. Neck: Supple, trachea midline. Eye: Normal conjunctiva. Ears, nose, mouth and throat: Oral mucosa moist. Cardiovascular: Regular rate and rhythm, No murmur, Normal peripheral perfusion, No edema. Respiratory: Lungs are clear to auscultation, respirations are non-labored. Gastrointestinal: Soft, Nontender, Non distended. Musculoskeletal: Normal ROM, normal strength. Neurological: Alert and oriented to person, place, time, and situation, No focal neurological deficit observed, normal speech observed, normal coordination observed. Psychiatric: Cooperative, appropriate mood & affect. Medical Decision Making Differential Diagnosis: Non-ST elevation myocardial infarction, unstable angina, angina, anxiety, atypical chest pain, pneumonia, costochondritis, chest wall pain. Documents reviewed: Emergency department nurses' notes. Orders Include Previous Orders (Selected) Inpatient Orders Ordered Cardiac Monitoring: Ordered (Dispatched) Urinalysis w Culture if Indicated: Ordered (Exam Completed) CR Chest 1 Vw Portable: Completed .Automated Differential: .RBC Morphology: CBC w/ Auto Diff: CMP Comprehensive Metabolic Panel: ED Adult Fall Risk Assessment: ED Adult Triage: ED Clinical Reconciliation: ED electrical and radio mock up mechanic: Normal Saline Flush: 10 mL, IV Push, See Comment ProBNP: Saline Lock Insert: Troponin I Ultra: aspirin: 324 mg, Chew, 1-Time. Electrocardiogram: Initial EKG shows sinus rhythm with first-degree AV block and incomplete right bundle branch block at a rate of 71, reviewed by BELEN Travis. Results review: Lab results : Lab Results 07/01/2019 0:50 EDT Sodium Level 140 mmol/L Potassium Level 4.3 mmol/L Chloride Level 106 mmol/L Carbon Dioxide Level 26 mmol/L Anion Gap 12 Glucose Level 186 mg/dL HI Blood Urea Nitrogen 20 mg/dL Creatinine Level 1.30 mg/dL eGFR >60 mL/min/1.73m2 eGFR NonAfrican 53 mL/min/1.73m2 LOW Bun/Creatinine 15.4 Calcium Level 9.3 mg/dL Protein Total 7.3 Gram/dL Albumin Level 4.0 Gram/dL Globulin 3.3 Gram/dL A/G Ratio 1.2 Bilirubin Total 1.1 mg/dL Alk Phos 66 Units/Liter AST 26 Units/Liter ALT 29 Units/Liter Troponin I Ultra 0.153 ng/mL HI ProBNP 379 pg/mL WBC 11.2 K/uL HI RBC 4.16 Million/uL LOW Hgb 14.0 g/dL Hct 40.7 % MCV 97.8 fL HI MCH 33.7 pg HI MCHC 34.4 Gram/dL Platelet Count 189 K/uL MPV 9.4 fL RDW 12.0 % Neut % 91.4 % HI Neut # 10.23 K/uL HI Lymph % 3.8 % LOW Lymph # 0.43 x10(3)/uL LOW Jessamine % 3.7 % Jessamine # 0.41 K/uL Eos % 0.3 % Eos # 0.03 x10(3)/uL Baso % 0.4 % Baso # 0.05 x10(3)/uL RBC Morphology Normal Platelet Ct Estimate Adequate Slide Review Technologist IG# 0.05 x10(3)/uL IG% 0.40 % . Radiology results: No acute cardiopulmonary disease reviewed by BELEN Travis. Impression and Plan Diagnosis Chest pain - Discharge, Medical Elevated troponin - Discharge, Medical Plan Condition: Guarded. Disposition: Admit Admit/Transfer/Discharge: Place in Observation (Order): Start: 07/01/2019 1:59 EDT, Observation Reason: Chest pain, elevated trop, Unit type: Telemetry unit, Admitting: ROMAN NGUYEN MD-INT. Counseled: Patient, Family, Regarding diagnosis, Regarding diagnostic results, Regarding treatment plan, Patient indicated understanding of instructions. Electronically signed by Angel, Aruna Conversion Stitch Bonding Machine Tender Helper Cerner at 12/20/2022 12:32 PM CDT documented in this encounter Plan of Treatment Not on file documented as of this encounter Visit Diagnoses Not on filedocumented in this encounter Care Teams Manager Utilization Relationship Specialty Start Date End Date Allyson Avery, YOKO [address] [phone] PCP - General Nurse Practitioner 02/06/23 documented as of this encounter
--- OUTSIDE RECORDS SUMMARY | 2024-07-21 17:17 | XMS_ITS | Encounter Summary ---
Author Organization [facility] In iatives Address [address] [place] [address] Care Team Providers Care Investment Strategist Name Role Phone Avery, Allyson YOKO Primary Care Provider + [phone] Encounter Details Date Type Department Care Team (Late st Contact Info) Description 07/01/2019 Transcribed Document [facility] [address] [place] [address] ProviderTatiana MD [address] [place] [address] Social History Tobacco Use Types Packs/Day Years Used Date Smoking Tobacco: Never Assessed Sex and Gender Information Value Date Recorded Sex Assigned at Not on file Legal Sex Male 5:33 PM CDT Gender Identity Not on file Sexual Orientation Not on file documented as of this encounter Miscellaneous Notes * Cerner Conversion Note - Tatiana ProviderMD - 07/01/2019 4:15 AM CDT Pain Assessment Entered On: 07/01/2019 6:21 EDT Performed On: 07/01/2019 5:33 EDT by Sixto Shelton RN Intervention Information: acetaminophen Performed by Sixto Shelton RN on 07/01/2019 04:33:00 EDT acetaminophen,650mg Oral,Fever Pain Assessment Pain Scale Used : 0-10 Scale Sixto Shelton RN - 07/01/2019 6:20 EDT Pain Scale Intensity : 0 Sixto Shelton RN - 07/01/2019 6:20 EDT Image 4 - Images currently included in the form version of this document have not been included in the text rendition version of the form. documented in this encounter Plan of Treatment Not on file documented as of this encounter Visit Diagnoses Not on filedocumented in this encounter Care Teams Investment Strategist Relationship Specialty Start Date End Date Allyson Avery, YOKO [address] [phone] PCP - General Nurse Practitioner 02/06/23 documented as of this encounter
--- OUTSIDE RECORDS SUMMARY | 2024-07-21 17:17 | XMS_ITS | Encounter Summary ---
Author Organization [facility] In iatives Address [address] [place] [address] Care Team Providers Care Admissions Rn Name Role Phone Bennie Allyson YOKO Primary Care Provider + [phone] Encounter Details Date Type Department Care Team (Late st Contact Info) Description 07/01/2019 Transcribed Document [facility] [place] Family Medicine [address] [place] [address] ProviderTatiana MD [address] [place] [address] Social History Tobacco Use Types Packs/Day Years Used Date Smoking Tobacco: Never Assessed Sex and Gender Information Value Date Recorded Sex Assigned at Not on file Legal Sex Male 5:33 PM CDT Gender Identity Not on file Sexual Orientation Not on file documented as of this encounter Miscellaneous Notes * Cerner Conversion Note - Tatiana ProviderMD - 07/01/2019 12:14 AM CDT ED Triage Entered On: 07/01/2019 0:34 EDT Performed On: 07/01/2019 0:29 EDT by Sue Anderson RN ED Triage Across the Room Triage Date/Time : 07/01/2019 0:29 EDT Chief Complaint : patient with complaints of chest pain that started around 2200, states NTG x1 and had relief of pain. Oriana Bautista RN - 07/01/2019 0:39 EDT DCP GENERIC CODE Tracking Acuity : 2 - Emergent Oriana Bautista RN - 07/01/2019 0:39 EDT Tracking Group : [facility] ED Sue Anderson RN - 07/01/2019 0:33 EDT Mode of Arrival : Ambulatory Transported to ED by : Private vehicle To Room Via : Wheelchair Accompanied By : Son ED Vital Signs : Document Height & Weight : Document ED Allergies : Document ED Reason for Visit : Document Tried to Harm Yourself in the Past? : No Thoughts of Harming/Killing Yourself : No Recent Thoughts of Harming/Killing Others : No Paper Cutter Operator Needed : No Oriana Bautista RN - 07/01/2019 0:39 EDT Tetanus Immunization : Greater than 10 years Sue Anderson RN - 07/01/2019 0:33 EDT Infectious Disease History Infectious Disease History : Chicken pox/Shingles, Influenza, Measles Oriana Bautista RN - 07/01/2019 0:39 EDT Oriana Bautista RN - 07/01/2019 0:42 EDT Fever/Chills Last 48 Hours : No Travel To Regions with Travel Advisories : No Travel Outside [place] Within Last 30 Days : No Contact With Traveler to Advisory Region : No Tuberculosis Symptoms : None Oriana Bautista RN - 07/01/2019 0:39 EDT Vital Signs ED Temperature Source : Oral Temperature Mode : Fahrenheit Temperature, Fahrenheit : 98.1 Deg F ED Pain : No Clinical Temperature, C : 36.7 Deg C Oxygen Therapy Mode : Room air Peripheral Pulse Rate : 73 bpm Respiratory Rate : 18 Breaths/Min Systolic Blood Pressure : 143 mmHg (HI) Diastolic Blood Pressure : 61 mmHg Oxygen Saturation : 96 % Oriana Bautista RN - 07/01/2019 0:39 EDT Allergy (As Of: 07/01/2019 00:41:51 EDT) Allergies (Active) No Known Allergies Estimated Onset Date: Unspecified ; Created By: CONSTANTIN DARDEN RN; Reaction Status: Active ; Category: Drug ; Substance: No Known Allergies ; Type: Allergy ; Updated By: CONSTANTIN DARDEN RN; Reviewed Date: 07/01/2019 0:39 EDT Diagnosis Control ED (As Of: 07/01/2019 00:41:51 EDT) Problems(Active) Allergic rhinitis (SNOMED CT :006572956 ) Name of Problem: Allergic rhinitis ; Recorder: CONSTANTIN DARDEN RN; Confirmation: Confirmed ; Classification: Patient Stated ; Code: [id number] ; Contributor System: PowerChart ; Last Updated: 12/09/2014 8:09 EDT ; Life Cycle Date: 12/09/2014 ; Life Cycle Status: Active ; Vocabulary: SNOMED CT Angina (SNOMED CT :686391865 ) Name of Problem: Angina ; Recorder: CONSTANTIN DARDEN RN; Confirmation: Confirmed ; Classification: Patient Stated ; Code: 470259073 ; Contributor System: Monster ArtsChart ; Last Updated: 12/09/2014 8:09 EDT ; Life Cycle Date: 12/09/2014 ; Life Cycle Status: Active ; Vocabulary: SNOMED CT Arthritis (SNOMED CT :6525658 ) Name of Problem: Arthritis ; Recorder: CONSTANTIN DARDEN RN; Confirmation: Confirmed ; Classification: Patient Stated ; Code: 7426367 ; Contributor System: Monster ArtsChart ; Last Updated: 12/09/2014 8:11 EDT ; Life Cycle Date: 12/09/2014 ; Life Cycle Status: Active ; Vocabulary: SNOMED CT Cardiac arrhythmia (SNOMED CT :9143522902 ) Name of Problem: Cardiac arrhythmia ; Recorder: CONSTANTIN DARDEN RN; Confirmation: Confirmed ; Classification: Patient Stated ; Code: [id number] ; Contributor System: Monster ArtsChart ; Last Updated: 12/09/2014 8:10 EDT ; Life Cycle Date: 12/09/2014 ; Life Cycle Status: Active ; Vocabulary: SNOMED CT Coronary artery disease (SNOMED CT :4099912148 ) Name of Problem: Coronary artery disease ; Recorder: CONSTANTIN DARDEN RN; Confirmation: Confirmed ; Classification: Patient Stated ; Code: 6404263230 ; Contributor System: PowerChart ; Last Updated: 12/09/2014 8:09 EDT ; Life Cycle Date: 12/09/2014 ; Life Cycle Status: Active ; Vocabulary: SNOMED CT Hard of hearing (SNOMED CT :404903963 ) Name of Problem: Hard of hearing ; Recorder: CONSTANTIN DARDEN RN; Confirmation: Confirmed ; Classification: Patient Stated ; Code: 135585145 ; Contributor System: PowerChart ; Last Updated: 12/09/2014 8:08 EDT ; Life Cycle Date: 12/09/2014 ; Life Cycle Status: Active ; Vocabulary: SNOMED CT Hyperlipidemia (SNOMED CT :38341457 ) Name of Problem: Hyperlipidemia ; Recorder: CONSTANTIN DARDEN RN; Confirmation: Confirmed ; Classification: Patient Stated ; Code: 71429484 ; Contributor System: PowerChart ; Last Updated: 07/31/2017 13:39 EST ; Life Cycle Date: 12/09/2014 ; Life Cycle Status: Active ; Vocabulary: SNOMED CT Hypertension (SNOMED CT :50148971 ) Name of Problem: Hypertension ; Recorder: CONSTANTIN DARDEN RN; Confirmation: Confirmed ; Classification: Patient Stated ; Code: 03397083 ; Contributor System: PowerChart ; Last Updated: 12/09/2014 8:09 EDT ; Life Cycle Date: 12/09/2014 ; Life Cycle Status: Active ; Vocabulary: SNOMED CT Myocardial infarction (SNOMED CT :24371046 ) Name of Problem: Myocardial infarction ; Recorder: CONSTANTIN DARDEN RN; Confirmation: Confirmed ; Classification: Patient Stated ; Code: 06212002 ; Contributor System: Monster ArtsChart ; Last Updated: 12/09/2014 8:11 EDT ; Life Cycle Date: 12/09/2014 ; Life Cycle Status: Active ; Vocabulary: SNOMED CT Renal calculi (SNOMED CT :393014855 ) Name of Problem: Renal calculi ; Recorder: CONSTANTIN DARDEN RN; Confirmation: Confirmed ; Classification: Patient Stated ; Code: 881828918 ; Contributor System: Monster ArtsChart ; Last Updated: 12/09/2014 8:12 EDT ; Life Cycle Date: 12/09/2014 ; Life Cycle Status: Active ; Vocabulary: SNOMED CT Stented coronary artery (SNOMED CT :8456267597 ) Name of Problem: Stented coronary artery ; Recorder: CONSTANTIN DARDEN RN; Confirmation: Confirmed ; Classification: Patient Stated ; Code: 0080655737 ; Contributor System: Monster ArtsChart ; Last Updated: 12/09/2014 8:09 EDT ; Life Cycle Date: 12/09/2014 ; Life Cycle Status: Active ; Vocabulary: SNOMED CT Diagnoses(Active) Chest pain Date: 07/01/2019 ; Diagnosis Type: Reason For Visit ; Confirmation: Complaint of ; Clinical Dx: Chest pain ; Classification: Medical ; Clinical Service: Emergency medicine ; Code: PNED ; Probability: 0 ; Diagnosis Code: [id number] ED Height and Weight Height Source : Stated Height Entry Format : [place] Height, Feet : 5 ft(Converted to: 152 cm, 60 Inch) Height, Inches : 9 Inch(Converted to: 0 ft 9 Inch, 22.86 cm) Clinical Height : 175.26 cm Weight Source, ED : Critical estimated dosing weight Weight Entry Format : [place] Weight, Pounds : 182 lb Clinical Dosing Weight : 82.73 kg Body Surface Area (BSA) : 1.99 m2 Body Mass Index : 26.9 kg/m2 (HI) [place] Body Weight (IBW) : 69.73 kg Oriana Bautista, RN - 07/01/2019 0:39 EDT Electronically signed by [facility] Conversion Security Screener Cerner at 12/20/2022 12:20 PM CDT documented in this encounter Plan of Treatment Not on file documented as of this encounter Visit Diagnoses Not on filedocumented in this encounter Care Teams Admissions Rn Relationship Specialty Start Date End Date Allyson Avery APRN [address] [phone] PCP - General Nurse Practitioner 02/06/23 documented as of this encounter
--- OUTSIDE RECORDS SUMMARY | 2024-07-21 17:17 | XMS_ITS | Encounter Summary ---
Author Organization [facility] In iatives Address [address] [place] [address] Care Team Providers Care Sample Book Maker Name Role Phone Allyson Avery APRN Primary Care Provider + [phone] Encounter Details Date Type Department Care Team (Late st Contact Info) Description 07/01/2019 Transcribed Document [facility] [place] Family Medicine [address] [place] [address] ProviderTatiana MD [address] [place] [address] Social History Tobacco Use Types Packs/Day Years Used Date Smoking Tobacco: Never Assessed Sex and Gender Information Value Date Recorded Sex Assigned at Not on file Legal Sex Male 5:33 PM CDT Gender Identity Not on file Sexual Orientation Not on file documented as of this encounter Miscellaneous Notes * Cerner Conversion Note - Tatiana Polanco MD - 07/01/2019 3:39 AM CDT Provider Notification Entered On: 07/01/2019 4:57 EDT Performed On: 07/01/2019 3:39 EDT by Sixto Shelton, KHRIS Provider Notification Provider Notified of Concerns/Results : Fever Provider Notified of : Nurse concerns Provider Notified Name : ROMAN NGUYEN MD-INT Sixto Shelton RN - 07/01/2019 4:56 EDT documented in this encounter Plan of Treatment Not on file documented as of this encounter Visit Diagnoses Not on filedocumented in this encounter Care Teams Sample Book Maker Relationship Specialty Start Date End Date Allyson Avery APRN [address] [place] [address] PCP - General Nurse Practitioner 02/06/23 documented as of this encounter
--- OUTSIDE RECORDS SUMMARY | 2024-07-21 17:17 | XMS_ITS | Encounter Summary ---
Author Organization [facility] In iatives Address [address] [place] [address] Care Team Providers Care Mobile Paint Specialist Name Role Phone AveryAllyson la YOKO Primary Care Provider + [phone] Encounter Details Date Type Department Care Team (Late st Contact Info) Description 07/01/2019 Transcribed Document [facility] [place] [address] [place] [address] ProviderTatiana MD [address] [place] [address] Social History Tobacco Use Types Packs/Day Years Used Date Smoking Tobacco: Never Assessed Sex and Gender Information Value Date Recorded Sex Assigned at Not on file Legal Sex Male 5:33 PM CDT Gender Identity Not on file Sexual Orientation Not on file documented as of this encounter Miscellaneous Notes * Cerner Conversion Note - Tatiana ProviderMD - 07/01/2019 3:24 AM CDT ED Discharge Entered On: 07/01/2019 3:25 EDT Performed On: 07/01/2019 3:24 EDT by Oriana Bautista, tank erector Process Patient Disposition : Admit/Observe Personal Belongings With Patient : Yes Patient Education Completed : Yes Teaching Evaluation : Verbalizes understanding IV Discontinued : No Nursing Documentation Completed : Yes Oriana Bautista, RN - 07/01/2019 3:24 EDT Admission, ED `Nurse Report (Hand Off) : Called Accompanied By, Discharge : Daughter, Son Mode Of Departure : Stretcher Oriana Bautista, RN - 07/01/2019 3:24 EDT documented in this encounter Plan of Treatment Not on file documented as of this encounter Visit Diagnoses Not on filedocumented in this encounter Care Teams Mobile Paint Specialist Relationship Specialty Start Date End Date Allyson Avery, YOKO [address] [address] [place] [id number] PCP - General Nurse Practitioner 02/06/23 documented as of this encounter
--- OUTSIDE RECORDS SUMMARY | 2024-07-21 17:17 | XMS_ITS | Encounter Summary ---
Author Organization [facility] In iatives Address [address] [place] [address] Care Team Providers Care Device Repair Technician Name Role Phone Avery, Allyson YOKO Primary Care Provider + [phone] Encounter Details Date Type Department Care Team (Late st Contact Info) Description 07/02/2019 Transcribed Document [facility] [place] Family Medicine [facility] [address] ProviderTatiana MD [address] [place] [id number] Social History Tobacco Use Types Packs/Day Years Used Date Smoking Tobacco: Never Assessed Sex and Gender Information Value Date Recorded Sex Assigned at Not on file Legal Sex Male 5:33 PM CDT Gender Identity Not on file Sexual Orientation Not on file documented as of this encounter Miscellaneous Notes * Cerner Conversion Note - Tatiana ProviderMD - 07/02/2019 9:26 AM CDT UM Authorization Entered On: 07/02/2019 9:26 EDT Performed On: 07/02/2019 9:26 EDT by TERRI JIMENEZ Rn-Utilization Review Primary Insurance Authorization Authorization and Policy Numbers : Insurance 1 Health Plan: MEDICARE Policy Number: [id number] Authorization Number: Insurance 2 Health Plan: [employer] N Policy Number: [id number] Authorization Number: Insurance Primary Name : MEDICARE Policy Number: [id number] [employer] N Policy Number: [id number] Historical Authorization Comments-Primary : No Authorization Comments Found TERRI JIMENEZ Rn-Utilization Review - 07/02/2019 9:26 EDT documented in this encounter Plan of Treatment Not on file documented as of this encounter Visit Diagnoses Not on filedocumented in this encounter Care Teams Device Repair Technician Relationship Specialty Start Date End Date Allyson Avery, YOKO [address] [phone] PCP - General Nurse Practitioner 02/06/23 documented as of this encounter
--- OUTSIDE RECORDS SUMMARY | 2024-07-21 17:17 | XMS_ITS | Encounter Summary ---
Author Organization [facility] In iatives Address [address] [place] [address] Care Team Providers Care Search Optimization Analyst Name Role Phone AveryAllyson la YOKO Primary Care Provider + [phone] Encounter Details Date Type Department Care Team (Late st Contact Info) Description 07/02/[address] [facility] [place] [address] [place] [address] ProviderTatiana MD [address] [place] [address] Social History Tobacco Use Types Packs/Day Years Used Date Smoking Tobacco: Never Assessed Sex and Gender Information Value Date Recorded Sex Assigned at Not on file Legal Sex Male 5:33 PM CDT Gender Identity Not on file Sexual Orientation Not on file documented as of this encounter Miscellaneous Notes * Cerner Conversion Note - Tatiana Polanco MD - 07/02/2019 12:[address] [facility] [place] [address] MEET MENCHACA :1940 Visit Time:07/01/2019 Your Visit Summary Your Care Team Admitting Physician - ROMAN NGUYEN MD-INT [place] WILL MD PHY, UNKNOWN Attending Physician - ROMAN NGUYEN MD-[place] WILL MD Primary Care Physician - JADA HOLBROOK MD-CAR Referring Physician - CHEVY WILL MD Your Diagnosis Chest pain Chest pain, Chest pain, unspecified, Chest pain, unspecified Elevated troponin Discharge Vitals Temperature 37.1 ??C Heart Rate (Monitored) 69 Respiratory Rate 18 Blood Pressure 114/60 What to do next Instructions From Your Care Team Discharge Follow Up Instructions: Follow-Up Appointments Follow Up with JADA HOLBROOK When 07/15/2019 10:45 AM EST Comments Appointment has been made Where: [address] [place] [address]- [phone] Business (1) Medications What How Much When Instructions Next Dose metoprolol (Metoprolol Tartrate 25 mg oral tablet) 0.5 Tablet(s) Oral Two Times A Day Refills: 3 Pickup at [facility] esomeprazole (NexIUM 40 mg oral delayed release capsule) 1 Capsule(s) Oral Every Day allopurinol (allopurinol 100 mg oral tablet) 1 Tablet(s) Oral Every Day amLODIPine (amLODIPine 5 mg oral tablet) 1 Tablet(s) Oral Every [...] oral capsule) 4 Capsule(s) Oral At Bedtime levothyroxine (levothyroxine 75 mcg (0.075 mg) oral tablet) 1 Tablet(s) Oral Every Day lisinopril (lisinopril 20 mg oral tablet) 1 [...] 2 Capsule(s) Oral Every Day Pharmacy Information [facility]: [address] [place], [place] [id number] [phone] Take your medications faithfully. Do NOT skip [...] This Visit No Immunizations Found Education Materials Acute Coronary Syndrome Acute coronary syndrome (ACS) is a serious problem in which there is suddenly not enough blood and oxygen reaching the heart. ACS can result in chest pain or a heart attack. This condition is a medical emergency. If you have any symptoms of this condition, get help right away. What are the causes? This condition may be caused by: ??? Buildup of fat and cholesterol inside of the arteries (atherosclerosis). This is the most common cause. The buildup (plaque) can cause blood vessels in the heart (coronary arteries) to become narrow or blocked, which reduces blood flow to the heart. Plaque can also break off and lead to a clot, which can block an artery and cause a heart attack or stroke. ??? Sudden tightening of the muscles around the coronary arteries (coronary spasm). ??? Tearing of a coronary artery (spontaneous coronary artery dissection). ??? Very low blood pressure (hypotension). ??? An abnormal heartbeat (arrhythmia). ??? Other medical conditions that cause a decrease of oxygen to the heart, such as anemiaorrespiratory failure. ??? Using cocaine or methamphetamine. What increases the risk? The following factors may make you more likely to develop this condition: ??? Age. The risk for ACS increases as you get older. ??? History of chest pain, heart attack, peripheral artery disease, or stroke. ??? Having taken chemotherapy or immune-suppressing medicines. ??? Being male. ??? Family history of chest pain, heart disease, or stroke. ??? Smoking. ??? Not exercising enough. ??? Being overweight. ??? High cholesterol. ??? High blood pressure (hypertension). ??? Diabetes. ??? Excessive alcohol use. What are the signs or symptoms? Common symptoms of this condition include: ??? Chest pain. The pain may last a long time, or it may stop and come back (recur). It may feel like: ? Crushing or squeezing. ? Tightness, pressure, fullness, or heaviness. ??? Arm, neck, jaw, or back pain. ??? Heartburn or indigestion. ??? Shortness of breath. ??? Nausea. ??? Sudden cold sweats. ??? Light-headedness. ??? Dizziness, or passing out. ??? Tiredness (fatigue). Sometimes there are no symptoms. How is this diagnosed? This condition may be diagnosed based on: ??? Your medical history and symptoms. ??? An electrocardiogram (ECG). This imaging test measures the heart's electrical activity. ??? Blood tests. Cardiac blood tests may need to be repeated at designated time intervals. ??? Chest X-ray. ??? A CT scan of the chest. ??? A coronary angiogram. This is a procedure in which dye is injected into the bloodstream and then X-rays are taken to show if there is a blockage in a coronary artery. ??? Exercise stress testing. ??? Echocardiography. This is a test that uses sound waves to produce detailed images of the heart. How is this treated? The treatment is to restore blood flow to the heart as soon as possible. Treatment for this condition may include: ??? Oxygen therapy. ??? Medicines, such as: ? Antiplatelet medicines and blood-thinning medicines, such as aspirin. These help prevent blood clots. ? Medicine that dissolves any blood clots (fibrinolytic therapy). ? Blood pressure medicines. ? Nitroglycerin. This helps relieve chest pain and widens blood vessels to improve blood flow. ? Pain medicine. ? Cholesterol-lowering medicine. ??? Surgery, such as: ? Coronary angioplasty with stent placement. This involves placing a small piece of metal that looks like mesh or a spring into a narrow coronary artery. This widens the artery and keep it open. ? Coronary artery bypass surgery. This involves taking a section of a blood vessel from a different part of your body, and placing it on the blocked coronary artery to allow blood to flow around (bypass) the blockage. ??? Cardiac rehabilitation. This is a program that helps improve your health and well-being. It includes exercise training, education, and counseling to help you recover. Follow these instructions at home: Eating and drinking ??? Eat a heart-healthy diet that includes whole grains, fruits and vegetables, lean proteins, and low-fat or nonfat dairy products. ??? Limit how much salt (sodium) you eat as told by your health care provider. Follow instructions from your health care provider about any other eating or drinking restrictions, such as limiting foods that are high in fat and processed sugars. ??? Use healthy cooking methods such as roasting, grilling, broiling, baking, poaching, steaming, or stir-frying. ??? Talk with a dietitian to learn about healthy cooking methods and how to eat less sodium. Medicines ??? Take [id number] and prescription medicines only as told by your health care provider. ??? Do not take these medicines unless your health care provider approves: ? Vitamin supplements that contain vitamin A or vitamin E. ? Nonsteroidal anti-inflammatory drugs (NSAIDs), such as ibuprofen, naproxen, or celecoxib. ? Hormone replacement therapy that contains estrogen. If you are taking blood thinners: ??? Talk with your health care provider before you take any medicines that contain aspirin or NSAIDs. These medicines increase your risk for dangerous bleeding. ??? Take your medicine exactly as told, at the same time every day. ??? Avoid activities that could cause injury or bruising, and follow instructions about how to prevent falls. ??? Wear a medical alert bracelet, and carry a card that lists what medicines you take. Activity ??? Join a cardiac rehabilitation program. An exercise plan will be developed for you. ??? Ask your health care provider: ? What activities and exercises are safe for you. ? If you should follow specific instructions about lifting, driving, or climbing stairs. Lifestyle ??? Do not use any products that contain nicotine or tobacco, such as cigarettes and e-cigarettes. If you need help quitting, ask your health care provider. ??? If your health care provider says that alcohol is safe for you, limit your alcohol intake to no more than 1 drink a day. One drink equals 12 oz of beer, 5 oz of wine, or 1?? oz of hard liquor. ??? Maintain a healthy weight. If you need to lose weight, work with your health care provider to do so safely. General instructions ??? Tell all the health care providers who care for you about your heart condition, including your dentist. This may affect the medicines or treatment you receive. ??? Manage any other health conditions you have, such as hypertension or diabetes. These conditions affect your heart. ??? Learn ways to manage stress. ??? Get screened for depression, and get mental health treatment if you need it. People with ACS are at higher risk for depression. ??? Keep your vaccinations up to date. Get the flu shot (influenza vaccine) every year. ??? If directed, monitor your blood pressure at home. ??? Keep all follow-up visits as told by your health care provider. This is important. Contact a health care provider if: ??? You feel overwhelmed or sad. ??? You have trouble doing your daily activities. Get help right away if: ??? You have pain in your chest, neck, arm, jaw, stomach, or back that recurs, and: ? It lasts for more than a few minutes. ? It is not relieved by taking the medicineyour health care provider prescribed. ??? You have unexplained: ? Heavy sweating. ? Heartburn or indigestion. ? Nausea or vomiting. ? Shortness of breath. ? Difficulty breathing. ? Fatigue. ? Nervousness or anxiety. ? Weakness. ? Diarrhea. ? Dark stools or blood in your stool. ??? You have sudden light-headedness or dizziness. ??? Your blood pressure is higher than 180/120. ??? You faint. ??? You have thoughts about hurting yourself. These symptoms may represent a serious problem that is an emergency. Do not wait to see if the symptoms will go away. Get medical help right away. Call your local emergency services (381 in the [place] Do not drive yourself to the hospital. If you ever feel like you may hurt yourself or others, or have thoughts about taking your own life, get help right away. You can go to your nearest emergency department or call: ??? Emergency services (029 in the [place] ??? A suicide crisis helpline, such as the National Suicide Prevention Lifeline at . This is open 24 hours a day. Summary ??? Acute coronary syndrome (ACS) is when there is not enough blood and oxygen being supplied to the heart. ACS can result in chest pain or a heart attack. ??? Acute coronary syndrome is a medical emergency. If you have any symptoms of this condition, get help right away. ??? Treatment includes medicines and procedures to open the blocked arteries and restore blood flow. This information is not intended to replace advice given to you by your health care provider. Make sure you discuss any questions you have with your health care provider. Document Released: 08/19/2006 Document Revised: 04/29/2018 Document Reviewed: 04/29/2018 [employer] Interactive Patient Education ?? 2019 [employer] Emergency Awareness and Preventative Care STROKE [...] Assistance with quitting is available by contacting 9-215-XMQP-NOW. This is a free resource providing counseling, [...] This Visit (last charted value for your 07/01/2019 visit) Hematology 07/02/2019 6:20 AM WBC: 9.2 K/uL -- Normal range between ( 3.6 and 9.5 ) RBC: 3.92 Million/uL -- Normal range between ( 4.20 and 5.70 ) Hct: 38.6 % -- Normal range between ( 40.1 and 51.0 ) Hgb: 13.0 g/dL -- Normal range between ( 13.5 and 17.3 ) Platelet Count: 170 K/uL -- Normal range between ( 163 and 369 ) MCH: 33.2 pg -- Normal range between ( 25.6 and 32.2 ) MCHC: 33.7 Gram/dL -- Normal range between ( 32.2 and 36.5 ) MCV: 98.5 fL -- Normal range between ( 79.0 and 94.8 ) Slide Review: No Eos %: 1.9 % -- Normal range between ( 0.0 and 7.0 ) [place] #: 0.36 K/uL -- Normal range between ( 0.16 and 1.00 ) Eos #: 0.17 x10(3)/uL -- Normal range between ( 0.00 and 0.80 ) [place] %: 3.9 % -- Normal range between ( 3.0 and 9.0 ) Baso %: 0.4 % -- Normal range between ( 0.0 and 1.5 ) Baso #: 0.04 x10(3)/uL -- Normal range between ( 0.00 and 0.20 ) RDW: 12.1 % -- Normal range between ( 11.7 and 14.9 ) Neut %: 82.7 % -- Normal range between ( 34.0 and 71.0 ) Neut #: 7.57 K/uL -- Normal range between ( 1.56 and 6.13 ) Lymph %: 10.8 % -- Normal range between ( 19.3 and 53.1 ) Lymph #: 0.99 x10(3)/uL -- Normal range between ( 1.00 and 3.90 ) MPV: 9.8 fL -- Normal range between ( 9.4 and 12.4 ) IG#: 0.03 x10(3)/uL -- Normal range between ( 0.00 and 0.05 ) IG%: 0.30 % -- Normal range between ( 0.00 and 0.60 ) 07/01/2019 4:51 AM Sed Rate Auto: 6 mm/Hr -- Normal range between ( 0 and 20 ) 07/01/2019 0:50 AM RBC Morphology: Normal Platelet Ct Estimate: Adequate Urinalysis 07/01/2019 4:35 AM Ur RBC: 0-2 /HPF Urine Nitrite: Negative Urine Leukocyte Esterase: Negative Urine Appearance: Clear Urine Glucose Dipstick: Negative Urine Blood Dipstick: Negative Urine Urobilinogen Dipstick: 0.2 EU/dL Urine Protein Dipstick: Negative Urine Color: Greer Ur WBC: 0-2 /HPF Urine Ketones Dipstick: 15 Ur Mucous: Trace Urine pH Dipstick: 5.5 -- Normal range between ( 6.0 and 8.0 ) Urine Bilirubin Dipstick: Small Urine Specific [place]: 1.024 -- Normal range between ( 1.005 and 1.030 ) Urine Type.: U CleanCat General Chemistry 07/02/2019 11:02 AM Glucose POC2: 260 mg/dL -- Normal range between ( 70 and 110 ) Device Comment 1: Device Comment 1 07/02/2019 6:20 AM Creatinine Level: 1.10 mg/dL -- Normal range between ( 0.70 and 1.30 ) Sodium Level: 136 mmol/L -- Normal range between ( 136 and 146 ) Potassium Level: 3.9 mmol/L -- Normal range between ( 3.5 and 5.1 ) Chloride Level: 105 mmol/L -- Normal range between ( 102 and 112 ) Carbon Dioxide Level: 24 mmol/L -- Normal range between ( 21 and 32 ) Anion Gap: 11 -- Normal range between ( 9 and 20 ) Bun/Creatinine: 14.5 -- Normal range between ( 8.0 and 20.0 ) Calcium Level: 9.1 mg/dL -- Normal range between ( 8.4 and 10.1 ) eGFR : >60 mL/min/1.73m2 eGFR NonAfrican: >60 mL/min/1.73m2 Glucose Level: 143 mg/dL -- Normal range between ( 74 and 106 ) Blood Urea Nitrogen: 16 mg/dL -- Normal range between ( 7 and 22 ) 07/01/2019 4:51 AM Hgb A1C: 6.8 % eAVG Glucose: 148 mg/dL 07/01/2019 0:50 AM Bilirubin Total: 1.1 mg/dL -- Normal range between ( 0.2 and 1.2 ) A/G Ratio: 1.2 -- Normal range between ( 1.1 and 2.5 ) ALT: 29 Units/Liter -- Normal range between ( 16 and 61 ) AST: 26 Units/Liter -- Normal range between ( 5 and 37 ) Globulin: 3.3 Gram/dL -- Normal range between ( 1.5 and 4.5 ) Alk Phos: 66 Units/Liter -- Normal range between ( 27 and 136 ) Protein Total: 7.3 Gram/dL -- Normal range between ( 6.4 and 8.2 ) Albumin Level: 4.0 Gram/dL -- Normal range between ( 3.4 and 5.0 ) Cardiac Specific Markers 07/01/2019 4:51 AM Troponin I Ultra: 0.137 ng/mL -- Normal range between ( 0.015 and 0.045 ) 07/01/2019 0:50 AM ProBNP: 379 pg/mL -- Normal range between ( 0 and 450 ) Lipid Studies 07/01/2019 4:51 AM Cholesterol Tot: 144 mg/dL -- Normal range between ( 0 and 199 ) Cholesterol HDL: 51.0 mg/dL Cholesterol LDL Calculation: 84.2 mg/dL -- Normal range between ( 0.0 and 99.0 ) Cholesterol VLDL Calculation: 8.8 mg/dL -- Normal range between ( 5.0 and 40.0 ) Cholesterol/HDL Ratio: 2.8 -- Normal range between ( 0.0 and 3.2 ) Triglyceride: 44 mg/dL -- Normal range between ( 0 and 249 ) LDL/HDL Ratio: 1.7 -- Normal range between ( 0.0 and 3.6 ) Endocrinology 07/01/2019 4:51 AM TSH: 0.512 mcInt Units/mL -- Normal range between ( 0.358 and 3.740 ) Diagnostic Radiology 07/01/2019 0:50 AM CR Chest 1 Vw Portable: CR Chest 1 Vw Portable Ultrasound 07/01/2019 10:03 AM US Gallbladder: US Gallbladder Patient Name:PIEDAD MEET E I have received and understand this information and was given the opportunity to ask questions. Patient/Manufacturing Executive Name: Patient/Manufacturing Executive Signature: Relationship to Patient: Clinician/Hospital Manufacturing Executive Signature: Date: documented in this encounter Plan of Treatment Not on file documented as of this encounter Visit Diagnoses Not on filedocumented in this encounter Care Teams Search Optimization Analyst Relationship Specialty Start Date End Date Allyson Avery, YOKO [address] [place] [address] [place] [id number] PCP - General Nurse Practitioner 02/06/23 documented as of this encounter
--- OUTSIDE RECORDS SUMMARY | 2024-07-21 17:17 | XMS_ITS | Encounter Summary ---
Author Organization [facility] In iatives Address [address] [place] [address] Care Team Providers Care Application Performance Engineer Name Role Phone Bennie Allyson BABCOCK Primary Care Provider + [phone] Encounter Details Date Type Department Care Team (Late st Contact Info) Description 07/02/2019 Transcribed Document [facility] [place] [address] [place] [address] ProviderTatiana MD [address] [place] [address] Social History Tobacco Use Types Packs/Day Years Used Date Smoking Tobacco: Never Assessed Sex and Gender Information Value Date Recorded Sex Assigned at Not on file Legal Sex Male 5:33 PM CDT Gender Identity Not on file Sexual Orientation Not on file documented as of this encounter Miscellaneous Notes * Cerner Conversion Note - Historical ProviderMD - 07/02/2019 4:00 AM CDT Height and Weight, Routine Entered On: 07/02/2019 3:56 EDT Performed On: 07/02/2019 4:00 EDT by Татьяна Jackson, [facility] Height and Weight, Routine Routine Weight Source : Bed scale Routine Weight Entry Format : [place] Routine Weight, Pounds : 181 lb Routine Weight, Ounces : 1 oz Routine Weight Calculation : 82.3 kg Height Source : Stated Height Entry Format : [place] Height, Feet : 5 ft Height, Inches : 9 Inch Clinical Height : 175.26 cm Body Surface Area (BSA), Routine : 1.98 m2 Body Mass Index (BMI), Routine : 26.79 kg/m2 [place], Татьяна T, [facility] Coord - 07/02/2019 3:56 EDT documented in this encounter Plan of Treatment Not on file documented as of this encounter Visit Diagnoses Not on filedocumented in this encounter Care Teams Application Performance Engineer Relationship Specialty Start Date End Date Allyson Avery, [employer] [address] [id number] PCP - General Nurse Practitioner 02/06/23 documented as of this encounter
--- OUTSIDE RECORDS SUMMARY | 2024-07-21 17:17 | XMS_ITS | Encounter Summary ---
Author Organization [facility] Init iatives Address [address] [place] [address] Care Team Providers Care Jinrikisha Driver Name Role Phone Unavailable Primary Care Provider Unavailabl e Encounter Details Date Type Department Care Team (Late st Contact Info) Description 03/13/2020 Historic Encounter [facility] Radiology 1 [place] [address] Jose Root MD [facility] [address] Social History Tobacco Use Types Packs/Day Years [...] Procedure Name Priority Date/Time Associated Diagnosis Comments XR CHEST 1 VIEW PORTABLE / BEDSIDE STAT 03/16/2020 3:04 PM EDT BMP BASIC METABOLIC PANEL ([facility] BKR DATA CONV) Routine 03/16/2020 12:17 AM EDT TROPONIN I ULTRA ([facility] BKR DATA CONV) Routine 03/16/2020 12:17 AM EDT GLUCOSE-POC Routine 03/15/2020 10:52 PM EDT GLUCOSE-POC Routine 03/15/2020 11:07 AM EDT GLUCOSE-POC Routine 03/15/2020 5:46 AM EDT BMP BASIC METABOLIC PANEL ([facility] BKR DATA CONV) Routine 03/15/2020 5:45 AM EDT TROPONIN I ULTRA ([facility] BKR DATA CONV) Routine 03/15/2020 5:45 AM EDT CBC W/ AUTO DIFF ([facility] BKR DATA CONV) Routine 03/15/2020 5:30 AM EDT AUTOMATED DIFFERENTIAL ([facility] BKR DATA CONV) Routine 03/15/2020 5:30 AM EDT GLUCOSE-POC Routine 03/14/2020 9:13 PM EDT GLUCOSE-POC Routine 03/14/2020 4:13 PM EDT GLUCOSE-POC Routine 03/14/2020 11:04 AM EDT MAGNESIUM LEVEL ([facility] BKR DATA CONV) Routine 03/14/2020 8:34 AM EDT CMP COMPREHENSIVE METABOLIC PANEL ([facility] BKR DATA CONV) Routine 03/14/2020 8:34 AM EDT TROPONIN I ULTRA ([facility] BKR DATA CONV) Routine 03/14/2020 8:34 AM EDT TSH Routine 03/14/2020 8:34 AM EDT CBC (HEMOGRAM ONLY) Routine 03/14/2020 8 :34 AM EDT GLUCOSE-POC Routine 03/14/2020 6:36 AM EDT MAGNESIUM LEVEL ([facility] BKR DATA CONV) Routine 03/14/2020 4:42 AM EDT TROPONIN I ULTRA ([facility] BKR DATA CONV) Routine 03/14/2020 4:42 AM EDT HEMOGLOBIN A1C Routine 03/14/2020 4:30 AM EDT GLUCOSE-POC Routine 03/14/2020 2:37 AM EDT TROPONIN I ULTRA ([facility] BKR DATA CONV) Routine 03/14/2020 12:27 AM EDT XR CHEST 1 VIEW PORTABLE / BEDSIDE Routine 03/13/2020 11:[address] BRAIN WITHOUT IV CONTRAST STAT 03/13/2020 11:06 PM EDT URINALYSIS UA RFLX MICROSCOPIC CULT IF IND ([facility] BKR DATA CONV) Routine 03/13/2020 10:00 PM EDT URINALYSIS MICROSCOPIC ([facility] BKR DATA CONV) Routine 03/13/2020 10:00 PM EDT PROBNP ([facility] BKR DATA CONV Routine 03/13/2020 10:00 PM EDT CBC W/ AUTO DIFF ([facility] BKR DATA CONV) Routine 03/13/2020 10:00 PM EDT AUTOMATED DIFFERENTIAL ([facility] BKR DATA CONV) Routine 03/13/2020 10:00 PM EDT MAGNESIUM LEVEL ([facility] BKR DATA CONV) Routine 03/13/2020 10:00 PM EDT CMP COMPREHENSIVE METABOLIC PANEL ([facility] BKR DATA CONV) Routine 03/13/2020 10:00 PM EDT TROPONIN I ULTRA ([facility] BKR DATA CONV) Routine 03/13/2020 10:00 PM EDT LACTIC ACID WITH REFLEX Routine 03/13/2020 10:00 PM EDT documented in this encounter Results * XR chest 1 view portable / bedside (03/16/2020 3:04 PM EDT) Anatomical Region Laterality Modality X-Ray 03/16/2020 3:04 PM EDT Narrative 03/16/2020 7:31 PM EDT PORTABLE CHEST ?03/16/2020 10:57 AM HISTORY: Pacemaker, possible pneumothorax. COMPARISON: 3 days prior. FINDINGS: Median sternotomy. Subsegmental atelectasis at the left base. Lungs otherwise clear. No effusion or pneumothorax. Dual-lead left pacer is intact. No acute osseous finding. IMPRESSION: No post procedure complication. Images reviewed, interpreted, and dictated by Yoan Carpio DO Procedure Note Yoan Carpio DO - 12/18/2022 PORTABLE CHEST 03/16/2020 10:57 AM HISTORY: Pacemaker, possible pneumothorax. COMPARISON: 3 days prior. FINDINGS: Median sternotomy. Subsegmental atelectasis at the left base. Lungs otherwise clear. No effusion or pneumothorax. Dual-lead left pacer is intact. No acute osseous finding. IMPRESSION: No post procedure complication. Images reviewed, interpreted, and dictated by Yoan Carpio DO Yoan Carpio DO IM DIAGNOSTIC IMAGING ORDERABLE S Final Result * (ABNORMAL) BMP BASIC METABOLIC PANEL ([facility] BKR DATA CONV) (03/16/2020 12:17 AM EDT) Glucose Level 153(H) 74 - 106 mg/dL 03/16/2020 4:38 AM EDT Comment: [employer] has become aware of sulfasalazine and sulfapyridine drug interference in the assays ALT, AST, T4, CKMB, glucose, and ammonia. The probability of misinterpretation of results for the assays is remote and would be limited to scenarios where a patient has taken the drug and had a blood sample drawn before clearance of the drug to a level that does not interfere with laboratory testing. Venipuncture should occur prior to administration of the drug. Blood Urea Nitrogen 20 7 - 22 mg/dL 03/16/2020 4:38 AM EDT Creatinine Level 0.90 0.70 - 1.30 mg/dL 03/16/2020 4:38 AM EDT Sodium Level 139 136 - 146 mmol/L 03/16/2020 4:38 AM EDT Potassium Level 3.9 3.5 - 5.1 mmol/L 03/16/2020 4:38 AM EDT Chloride Level 106 102 - 112 mmol/L 03/16/2020 4:38 AM EDT Carbon Dioxide Level 28 21 - 32 mmol/L 03/16/2020 4:38 AM EDT Anion Gap 9 9 - 20 03/16/2020 4:38 AM EDT Calcium Level 8.9 8.4 - 10.1 mg/dL 03/16/2020 4:38 AM EDT Bun/Creatinine 22.2(H) 8.0 - 20.0 03/16/2020 4:38 AM EDT eGFR NonAfrican >60 >=60 mL/min/1. 73m2 03/16/2020 4:41 AM EDT Comment: GFR <60 suggests chronic kidney disease, if found over 3 month period. GFR <15 indicates renal failure. eGFR >60 >=60 mL/min/1. 73m2 03/16/2020 4:41 AM EDT Comment: GFR <60 suggests chronic kidney disease, if found over 3 month period. GFR <15 indicates renal failure. Blood 03/16/2020 12:1 7 AM EDT 03/16/2020 4:28 AM EDT [facility] Historical Provider LAB BLOOD ORDERABLES Fi nal Result [facility] [address] [phone] * (ABNORMAL) TROPONIN I ULTRA ([facility] BKR DATA CONV) (03/16/2020 12:17 AM EDT) TroponinI Ultra 0.119(H) 0.015 - 0.045 ng/mL 03/16/2020 4:41 AM EDT Comment: Troponin Result (ng/ml) ?* Interpretation 0.015 ? 0.045 ?* ??Normal; less than 99th percentile of normal range >0.045 ? * Abnormal; greater than 99th percentile of normal range. ?? Test precision at 0.045 ng/ml is less than 10% Coefficient of Variation. Blood 03/16/2020 12:1 7 AM EDT 03/16/2020 4:28 AM EDT [facility] Provider LAB BLOOD ORDERABLES Fi nal Result Performing Organization Address [facility]/ZIP Co de Phone Number [facility] [address] [phone] * (ABNORMAL) Glucose, Point of Care (03/15/2020 10:52 PM EDT) Glucose POC2 158(H) 70 - 110 mg/dL 03/16/2020 2:52 AM EDT [facility] Vp Compliance [id number] 03/16/2020 2:52 AM EDT [facility] Device SN [id number] 03/16/2020 2:52 AM EDT [facility] Blood 03/15/2020 10:5 2 PM EDT 03/16/2020 3:10 AM EDT Result [facility] Provider POINT OF CARE TEST ORDE RABLES Final Result Performing Organization Address [facility] Co de Phone Number [facility] [address] [phone] * (ABNORMAL) Glucose, Point of Care (03/15/2020 11:07 AM EDT) Glucose POC2 124(H) 70 - 110 mg/dL 03/15/2020 3:07 PM EDT [facility] Vp Compliance [id number] 03/15/2020 3:07 PM EDT [facility] Device SN [id number] 03/15/2020 3:07 PM EDT [facility] Device Comment1 Notified Nurse RBV 03/15/2020 3:07 PM EDT [facility] Blood 03/15/2020 11:0 7 AM EDT 03/15/2020 3:10 PM EDT us [facility] Historical Provider POINT OF CARE TEST ORDE RABLES Final Result Performing Organization Address [facility] de Phone Number [facility] [address] [phone] * (ABNORMAL) Glucose, Point of Care (03/15/2020 5:46 AM EDT) Glucose POC2 123(H) 70 - 110 mg/dL 03/15/2020 9:46 AM EDT [facility] Vp Compliance [id number] 03/15/2020 9:46 AM EDT [facility] Device SN [id number] 03/15/2020 9:46 AM EDT [facility] Device Comment1 Notified Nurse RBV 03/15/2020 9:46 AM EDT [facility] Blood 03/15/2020 5:46 AM EDT 03/15/2020 9:50 AM EDT [facility] Provider POINT OF CARE TEST ORDKatie VILLATORO Final Result Performing Organization Address [facility] de Phone Number [facility] [address] [phone] * (ABNORMAL) [facility] ULTRA [facility] (03/15/2020 5:45 AM EDT) TroponinI Ultra 0.101(H) 0.015 - 0.045 ng/mL 03/15/2020 12:04 PM EDT Comment: Troponin Result (ng/ml) ?* Interpretation 0.015 ? 0.045 ?* ??Normal; less than 99th percentile of normal range >0.045 ? * Abnormal; greater than 99th percentile of normal range. ?? Test precision at 0.045 ng/ml is less than 10% Coefficient of Variation. Blood 03/15/2020 5:45 AM EDT 03/15/2020 11:39 AM EDT us [facility] Historical Provider LAB BLOOD ORDERABLES Fi nal Result [facility] [address] [place] [id number], [facility] [phone] * (ABNORMAL) BMP BASIC METABOLIC PANEL ([facility] BKR DATA CONV) (03/15/2020 5:45 AM EDT) Glucose Level 133(H) 74 - 106 mg/dL 03/15/2020 9:54 AM EDT Comment: [employer] has become aware of sulfasalazine and sulfapyridine drug interference in the assays ALT, AST, T4, CKMB, glucose, and ammonia. The probability of misinterpretation of results for the assays is remote and would be limited to scenarios where a patient has taken the drug and had a blood sample drawn before clearance of the drug to a level that does not interfere with laboratory testing. Venipuncture should occur prior to administration of the drug. Blood Urea Nitrogen 24(H) 7 - 22 mg/dL 03/15/2020 9:54 AM EDT Creatinine Level 0.90 0.70 - 1.30 mg/dL 03/15/2020 9:54 AM EDT Sodium Level 139 136 - 146 mmol/L 03/15/2020 9:54 AM EDT Potassium Level 4.1 3.5 - 5.1 mmol/L 03/15/2020 9:54 AM EDT Chloride Level 105 102 - 112 mmol/L 03/15/2020 9:54 AM EDT Carbon Dioxide Level 28 21 - 32 mmol/L 03/15/2020 9:54 AM EDT Anion Gap 10 9 - 20 03/15/2020 9:54 AM EDT Calcium Level 9.1 8.4 - 10.1 mg/dL 03/15/2020 9:54 AM EDT Bun/Creatinine 26.7(H) 8.0 - 20.0 03/15/2020 9:54 AM EDT eGFR NonAfrican >60 >=60 mL/min/1. 73m2 03/15/2020 9:54 AM EDT Comment: GFR <60 suggests chronic kidney disease, if found over 3 month period. GFR <15 indicates renal failure. eGFR >60 >=60 mL/min/1. 73m2 03/15/2020 9:54 AM EDT Comment: GFR <60 suggests chronic kidney disease, if found over 3 month period. GFR <15 indicates renal failure. Blood 03/15/2020 5:45 AM EDT 03/15/2020 9:45 AM EDT us [facility] Historical Provider LAB BLOOD ORDERABLES nal Result [facility] [address] [place] [address] * (ABNORMAL) AUTOMATED DIFFERENTIAL ([facility] BKR DATA CONV) (03/15/2020 5:30 AM EDT) Neut% 55.0 34.0 - 71.0 % 03/15/2020 9:43 AM EDT Lymph% 29.3 19.3 - 53.1 % 03/15/2020 9:43 AM EDT Lares% 10.1(H) 3.0 - 9.0 % 03/15/2020 9:43 AM EDT Eos% 3.9 0.0 - 7.0 % 03/15/2020 9:43 AM EDT Baso% 1.2 0.0 - 1.5 % 03/15/2020 9:43 AM EDT IG% 0.50 0.00 - 0.60 % 03/15/2020 9:43 AM EDT Neut# 2.23 1.56 - 6.13 K/uL 03/15/2020 9:43 AM EDT Lymph# 1.19 1.00 - 3.90 x10(3)/uL 03/15/2020 9:43 AM EDT Lares# 0.41 0.16 - 1.00 K/uL 03/15/2020 9:43 AM EDT Eos# 0.16 0.00 - 0.80 x10(3)/uL 03/15/2020 9:43 AM EDT Baso# 0.05 0.00 - 0.20 x10(3)/uL 03/15/2020 9:43 AM EDT IG# 0.02 0.00 - 0.05 x10(3)/uL 03/15/2020 9:43 AM EDT Blood 03/15/2020 5:30 AM EDT 03/15/2020 9:38 AM EDT Narrative [facility] - 03/15/2020 9:48 AM EDT Added by Discern Expert [facility] Historical Provider LAB BLOOD ORDERABLES Fi nal Result Performing Organization Address City/[facility]/ZIP Co de Phone Number [facility] [address] [phone] * (ABNORMAL) CBC W/ AUTO DIFF ([facility] BKR DATA CONV) (03/15/2020 5:30 AM EDT) WBC 4.1 3.6 - 9.5 K/uL 03/15/2020 9:43 AM EDT RBC 3.97(L) 4.20 - 5.70 Million/uL 03/15/2020 9:43 AM EDT Hgb 13.3(L) 13.5 - 17.3 g/dL 03/15/2020 9:43 AM EDT Hct 39.3(L) 40.1 - 51.0 % 03/15/2020 9:43 AM EDT MCV 99.0(H) 79.0 - 94.8 fL 03/15/2020 9:43 AM EDT MCH 33.5(H) 25.6 - 32.2 pg 03/15/2020 9:43 AM EDT MCHC 33.8 32.2 - 36.5 Gram/dL 03/15/2020 9:43 AM EDT RDW 11.4(L) 11.7 - 14.9 % 03/15/2020 9:43 AM EDT Platelet Count 149(L) 163 - 369 K/uL 03/15/2020 9:43 AM EDT MPV 9.5 9.4 - 12.4 fL 03/15/2020 9:43 AM EDT Slide Review No 03/15/2020 9:48 AM EDT Blood 03/15/2020 5:30 AM EDT 03/15/2020 9:38 AM EDT [facility] Historical Provider LAB BLOOD ORDERABLES Fi nal Result [facility] 1 [place] [address], [facility] [phone] * (ABNORMAL) Glucose, Point of Care (03/14/2020 9:13 PM EDT) Glucose POC2 133(H) 70 - 110 mg/dL 03/15/2020 1:13 AM EDT [facility] Vp Compliance [id number] 03/15/2020 1:13 AM EDT [facility] Device SN [id number] 03/15/2020 1:13 AM EDT [facility] Device Comment1 Protocols Followed 03/15/2020 1:13 AM EDT [facility] Blood 03/14/2020 9:13 PM EDT 03/15/2020 1:15 AM EDT [facility] Historical Provider POINT OF CARE TEST ORDE RABLES Final Result Performing Organization Address City/[facility]/ZIP Co de Phone Number [facility] [address] [phone] * (ABNORMAL) Glucose, Point of Care (03/14/2020 4:13 PM EDT) Glucose POC2 143(H) 70 - 110 mg/dL 03/14/2020 8:13 PM EDT [facility] Vp Compliance [id number] 03/14/2020 8:13 PM EDT [facility] Device SN [id number] 03/14/2020 8:13 PM EDT [facility] Device Comment1 Notified Nurse RBV 03/14/2020 8:13 PM EDT [facility] Blood 03/14/2020 4:13 PM EDT 03/14/2020 8:15 PM EDT [facility] Historical Provider POINT OF CARE TEST ORDE RABLES Final Result [facility] [address] [place] [address], [facility] [phone] * (ABNORMAL) Glucose, Point of Care (03/14/2020 11:04 AM EDT) Glucose POC2 130(H) 70 - 110 mg/dL 03/14/2020 3:04 PM EDT [facility] Vp Compliance [id number] 03/14/2020 3:04 PM EDT [facility] Device SN [id number] 03/14/2020 3:04 PM EDT [facility] Device Comment1 Notified Nurse RBV 03/14/2020 3:04 PM EDT [facility] Blood 03/14/2020 11:0 4 AM EDT 03/14/2020 3:10 PM EDT [facility] Provider POINT OF CARE TEST ORDE IRVING Final Result [facility] [address] [phone] * (ABNORMAL) CMP COMPREHENSIVE METABOLIC PANEL ([facility] BK DATA CONV) (03/14/2020 8:34 AM EDT) Sodium Level 138 136 - 146 mmol/L 03/14/2020 1:10 PM EDT Potassium Level 4.5 3.5 - 5.1 mmol/L 03/14/2020 1:10 PM EDT Chloride Level 104 102 - 112 mmol/L 03/14/2020 1:10 PM EDT Carbon Dioxide Level 29 21 - 32 mmol/L 03/14/2020 1:10 PM EDT Anion Gap 10 9 - 20 03/14/2020 1:10 PM EDT Calcium Level 8.8 8.4 - 10.1 mg/dL 03/14/2020 1:10 PM EDT Glucose Level 119(H) 74 - 106 mg/dL 03/14/2020 1:10 PM EDT Comment: [employer] has become aware of sulfasalazine and sulfapyridine drug interference in the assays ALT, AST, T4, CKMB, glucose, and ammonia. The probability of misinterpretation of results for the assays is remote and would be limited to scenarios where a patient has taken the drug and had a blood sample drawn before clearance of the drug to a level that does not interfere with laboratory testing. Venipuncture should occur prior to administration of the drug. Blood Urea Nitrogen 23(H) 7 - 22 mg/dL 03/14/2020 1:10 PM EDT Creatinine Level 1.00 0.70 - 1.30 mg/dL 03/14/2020 1:10 PM EDT Bun/Creatinine 23.0(H) 8.0 - 20.0 03/14/2020 1:10 PM EDT Albumin Level 3.7 3.4 - 5.0 Gram/dL 03/14/2020 1:10 PM EDT Protein, Total 7.2 6.4 - 8.2 Gram/dL 03/14/2020 1:10 PM EDT A/G Ratio 1.1 1.1 - 2.5 03/14/2020 1:10 PM EDT Alk Phos 58 27 - 136 Units/Lit er 03/14/2020 1:10 PM EDT ALT 28 16 - 61 Units/Lit er 03/14/2020 1:10 PM EDT Comment: [employer] has become aware of sulfasalazine and sulfapyridine drug interference in the assays ALT, AST, T4, CKMB, glucose, and ammonia. The probability of misinterpretation of results for the assays is remote and would be limited to scenarios where a patient has taken the drug and had a blood sample drawn before clearance of the drug to a level that does not interfere with laboratory testing. Venipuncture should occur prior to administration of the drug. AST 31 5 - 37 Units/Lit er 03/14/2020 1:10 PM EDT Comment: [employer] has become aware of sulfasalazine and sulfapyridine drug interference in the assays ALT, AST, T4, CKMB, glucose, and ammonia. The probability of misinterpretation of results for the assays is remote and would be limited to scenarios where a patient has taken the drug and had a blood sample drawn before clearance of the drug to a level that does not interfere with laboratory testing. Venipuncture should occur prior to administration of the drug. Bilirubin, Total 0.7 0.2 - 1.2 mg/dL 03/14/2020 1:10 PM EDT Comment: Total bilirubin results may be falsely elevated in patients undergoing treatment with eltrombopag (Promacta). Results should be correlated to clinical symptomology and additional laboratory testing including other markers for liver function, e.g., alanine aminotransferase, aspartate aminotransferase, alkaline phosphatase, and/or lactate dehydrogenase. Globulin 3.5 1.5 - 4.5 Gram/dL 03/14/2020 1:10 PM EDT eGFR >60 >=60 mL/min/1. 73m2 03/14/2020 1:10 PM EDT Comment: GFR <60 suggests chronic kidney disease, if found over 3 month period. GFR <15 indicates renal failure. eGFR NonAfrican >60 >=60 mL/min/1. 73m2 03/14/2020 1:10 PM EDT Comment: GFR <60 suggests chronic kidney disease, if found over 3 month period. GFR <15 indicates renal failure. Blood 03/14/2020 8:34 AM EDT 03/14/2020 12:44 PM EDT [facility] Historical Provider LAB BLOOD ORDERABLES Fi nal Result Performing Organization Address [facility] de Phone Number [facility] [address] [phone] * (ABNORMAL) TROPONIN I ULTRA ([facility] DATA CONV) (03/14/2020 8:34 AM EDT) TroponinI Ultra 0.088(H) 0.015 - 0.045 ng/mL 03/14/2020 1:10 PM EDT Comment: Troponin Result (ng/ml) ?* Interpretation 0.015 ? 0.045 ?* ??Normal; less than 99th percentile of normal range >0.045 ? * Abnormal; greater than 99th percentile of normal range. ?? Test precision at 0.045 ng/ml is less than 10% Coefficient of Variation. Blood 03/14/2020 8:34 AM EDT 03/14/2020 12:44 PM EDT [facility] Historical Provider LAB BLOOD ORDERABLES Fi nal Result Performing Organization Address [facility] de Phone Number [facility] [address] [phone] * MAGNESIUM LEVEL ([facility] BKR DATA CONV) (03/14/2020 8:34 AM EDT) Pathologist [facility] Magnesium Level 1.8 1.5 - 2.4 mg/dL 03/14/2020 1:10 PM EDT Blood 03/14/2020 8:34 AM EDT 03/14/2020 12:44 PM EDT [facility] Provider LAB BLOOD ORDERABLES Fi nal Result [facility] [address] [phone] * TSH (03/14/2020 8:34 AM EDT) [facility] TSH 1.330 0.358 - 3.740 mcInt Units/mL 03/14/2020 1:10 PM EDT Comment:Biotin supplements c an cause clinically significant incorrect lab results. The FDA has seen an increase in the number of reported adverse events related to biotin interferencewith lab tests. Blood 03/14/2020 8:34 AM EDT 03/14/2020 12:44 PM EDT [facility] Provider LAB BLOOD ORDERABLES Fi nal Result [facility] [address] [phone] * (ABNORMAL) CBC (Hemogram only) (03/14/2020 8:34 AM EDT) WBC 4.2 3.6 - 9.5 K/uL 03/14/2020 12:48 PM EDT RBC 4.09(L) 4.20 - 5.70 Million/uL 03/14/2020 12:48 PM EDT Hgb 13.7 13.5 - 17.3 g/dL 03/14/2020 12:48 PM EDT Hct 40.6 40.1 - 51.0 % 03/14/2020 12:48 PM EDT MCV 99.3(H) 79.0 - 94.8 fL 03/14/2020 12:48 PM EDT MCH 33.5(H) 25.6 - 32.2 pg 03/14/2020 12:48 PM EDT MCHC 33.7 32.2 - 36.5 Gram/dL 03/14/2020 12:48 PM EDT RDW 11.8 11.7 - 14.9 % 03/14/2020 12:48 PM EDT Platelet Count 166 163 - 369 K/uL 03/14/2020 12:48 PM EDT MPV 9.7 9.4 - 12.4 fL 03/14/2020 12:48 PM EDT Slide Review No 03/14/2020 12:50 PM EDT Blood 03/14/2020 8:34 AM EDT 03/14/2020 12:44 PM EDT [facility] Historical Provider LAB BLOOD ORDERABLES Fi nal Result Performing Organization Address [facility]/ZIP Co de Phone Number [facility] [address] [phone] * (ABNORMAL) Glucose, Point of Care (03/14/2020 6:36 AM EDT) [facility] Signature Glucose POC2 118(H) 70 - 110 mg/dL 03/14/2020 10:36 AM EDT [facility] Vp Compliance [id number] 03/14/2020 10:36 AM EDT [facility] Device SN [id number] 03/14/2020 10:36 AM EDT [facility] Blood 03/14/2020 6:36 AM EDT 03/14/2020 10:40 AM EDT [facility] Provider POINT OF CARE TEST ORDE RABLES Final Result Performing Organization Address [facility]/ZIP Co de Phone Number [facility] [address] [phone] * (ABNORMAL) TROPONIN I ULTRA ([facility] BKR DATA CONV) (03/14/2020 4:42 AM EDT) TroponinI Ultra 0.078(H) 0.015 - 0.045 ng/mL 03/14/2020 9:06 AM EDT Comment: Troponin Result (ng/ml) ?* Interpretation 0.015 ? 0.045 ?* ??Normal; less than 99th percentile of normal range >0.045 ? * Abnormal; greater than 99th percentile of normal range. ?? Test precision at 0.045 ng/ml is less than 10% Coefficient of Variation. Blood 03/14/2020 4:42 AM EDT 03/14/2020 8:53 AM EDT [facility] Provider LAB BLOOD ORDERABLES Fi nal Result Performing Organization Address [facility] de Phone Number [facility] [address] [place] [address] * MAGNESIUM LEVEL ([facility] BKR DATA CONV) (03/14/2020 4:42 AM EDT) Magnesium Level 1.8 1.5 - 2.4 mg/dL 03/14/2020 8:49 AM EDT Blood 03/14/2020 4:42 AM EDT 03/14/2020 8:44 AM EDT [facility] Provider LAB BLOOD ORDERABLES Fi nal Result Performing Organization Address [facility] de Phone Number [facility] [facility] [address] [phone] * HEMOGLOBIN A1C (03/14/2020 4:30 AM EDT) HgbA1C 6.7 % 03/14/2020 2:36 PM EDT Comment: Ranges for Diabetic Adults(Diagnosed/Non-) Hemoglobin A1c(%) ??Glycemic Index <8 ?Less Stringent Goal <7 ? General Goal <6.5 ?More Stringent Goal Ranges to Aid in Diagnosis of Diabetes Hemoglobin A1c(%) ??Suggested Diagnosis ? > or = 6.5 ? Diabetic ?5.7 - 6.4 ?Pre-Diabetic <5.7 ? Non-Diabetic eAVG Glucose 146 mg/dL 03/14/2020 2:36 PM EDT Blood 03/14/2020 4:30 AM EDT 03/14/2020 8:35 AM EDT [facility] Historical Provider LAB BLOOD ORDERABLES Fi nal Result Performing Organization Address [facility] Phone Number KIT [facility] [address] [phone] * (ABNORMAL) Glucose, Point of Care (03/14/2020 2:37 AM EDT) Glucose POC2 170(H) 70 - 110 mg/dL 03/14/2020 6:37 AM EDT KIT [facility] Vp Compliance [id number] 03/14/2020 6:37 AM EDT KIT [facility] Device SN [id number] 03/14/2020 6:37 AM EDT KIT [facility] Device Comment1 Notified Nurse RBV 03/14/2020 6:37 AM EDT KIT [facility] Blood 03/14/2020 2:37 AM EDT 03/14/2020 6:40 AM EDT [facility] Historical Provider POINT OF CARE TEST ORDE RABLES Final Result Performing Organization Address [facility] Phone Number KIT [facility] [address] [phone] * (ABNORMAL) TROPONIN I ULTRA ([facility] BKR DATA CONV) (03/14/2020 12:27 AM EDT) TroponinI Ultra 0.087(H) 0.015 - 0.045 ng/mL 03/14/2020 4:42 AM EDT Comment: Troponin Result (ng/ml) ?* Interpretation 0.015 ? 0.045 ?* ??Normal; less than 99th percentile of normal range >0.045 ? * Abnormal; greater than 99th percentile of normal range. ?? Test precision at 0.045 ng/ml is less than 10% Coefficient of Variation. Blood 03/14/2020 12:2 7 AM EDT 03/14/2020 4:27 AM EDT [facility] Historical Provider LAB BLOOD ORDERABLES Fi nal Result KIT [facility] [address] [phone] * XR chest 1 view portable / bedside (03/13/2020 11:15 PM EDT) Anatomical Region Laterality Modality X-Ray 03/13/2020 11:1 5 PM EDT Narrative 03/14/2020 3:37 AM EDT PORTABLE CHEST ?03/13/2020 9:51 PM HISTORY: Precordial chest pain. COMPARISON: June 2019. FINDINGS: The heart is ??normal in size . ??The mediastinum is unremarkable . ??The patient is status post median sternotomy . ?? The lungs are clear . ??There is no pneumothorax . The osseous structures are unremarkable . A pacemaker overlies the left chest. IMPRESSION: ??No acute cardiopulmonary process . Continued follow-up is recommended . Images reviewed, interpreted, and dictated by Tameka Root MD Procedure Note Jose Root MD - 12/18/2022 PORTABLE CHEST 03/13/2020 9:51 PM HISTORY: Precordial chest pain. COMPARISON: June 2019. FINDINGS: The heart is normal in size . The mediastinum is unremarkable . The patient is status post median sternotomy . The lungs are clear . There is no pneumothorax . The osseous structures are unremarkable . A pacemaker overlies the left chest. IMPRESSION: No acute cardiopulmonary process . Continued follow-up is recommended . Images reviewed, interpreted, and dictated by Tameka Root MD us Jose Root MD IMG DIAGNOSTIC IMAGING OR DERABLES Final Result * CT brain without IV contrast (03/13/2020 11:06 PM EDT) Anatomical Region Laterality Modality Brain, Head Computed Tomogra phy 03/13/2020 11:0 6 PM EDT Narrative 03/14/2020 3:[address] ? 03/13/2020 9:51 PM HISTORY: Headache. COMPARISON: None. TECHNIQUE: Multiple axial CT images were performed from the foramen magnum to the vertex. This study was performed with techniques to keep radiation doses as low as reasonably achievable, (ALARA). Individualized dose reduction techniques using automated exposure control or adjustment of mA and/or kV according to the patient size were employed. FINDINGS: The ventricles are enlarged. There is diffuse atrophy. There is no evidence of hemorrhage. No masses are identified. No extra-axial fluid is seen. The sinuses are normal. There is encephalomalacia in the medial left occipital lobe. IMPRESSION: No acute intracranial process. ?? Images reviewed, interpreted, and dictated by Tameka Root MD Procedure Note Jose Root MD - 12/18/[address] 03/13/2020 9:51 PM HISTORY: Headache. COMPARISON: None. TECHNIQUE: Multiple axial CT images were performed from the foramen magnum to the vertex. This study was performed with techniques to keep radiation doses as low as reasonably achievable, (ALARA). Individualized dose reduction techniques using automated exposure control or adjustment of mA and/or kV according to the patient size were employed. FINDINGS: The ventricles are enlarged. There is diffuse atrophy. There is no evidence of hemorrhage. No masses are identified. No extra-axial fluid is seen. The sinuses are normal. There is encephalomalacia in the medial left occipital lobe. IMPRESSION: No acute intracranial process. Images reviewed, interpreted, and dictated by Tameka Root MD us A Chuck Root MD IMG CT ORDERABLES Final R esult * (ABNORMAL) AUTOMATED DIFFERENTIAL ([facility] BKR DATA CONV) (03/13/2020 10:00 PM EDT) Neut% 57.0 34.0 - 71.0 % 03/14/2020 2:07 AM EDT Lymph% 26.8 19.3 - 53.1 % 03/14/2020 2:07 AM EDT Lares% 10.5(H) 3.0 - 9.0 % 03/14/2020 2:07 AM EDT Eos% 4.1 0.0 - 7.0 % 03/14/2020 2:07 AM EDT Baso% 1.2 0.0 - 1.5 % 03/14/2020 2:07 AM EDT IG% 0.40 0.00 - 0.60 % 03/14/2020 2:07 AM EDT Neut# 2.76 1.56 - 6.13 K/uL 03/14/2020 2:07 AM EDT Lymph# 1.30 1.00 - 3.90 x10(3)/uL 03/14/2020 2:07 AM EDT Lares# 0.51 0.16 - 1.00 K/uL 03/14/2020 2:07 AM EDT Eos# 0.20 0.00 - 0.80 x10(3)/uL 03/14/2020 2:07 AM EDT Baso# 0.06 0.00 - 0.20 x10(3)/uL 03/14/2020 2:07 AM EDT IG# 0.02 0.00 - 0.05 x10(3)/uL 03/14/2020 2:07 AM EDT Blood 03/13/2020 10:0 0 PM EDT 03/14/2020 2:04 AM EDT Narrative KIT [facility] - 03/14/2020 2:07 AM EDT Added by Discern Expert [facility] Historical Provider LAB BLOOD ORDERABLES Fi nal Result KIT [facility] [address] [phone] * Lactic Acid with reflex () (03/13/2020 10:00 PM EDT) Lactic Acid Level 1.5 0.4 - 2.0 mmol/L 03/14/2020 2:27 AM EDT Blood 03/13/2020 10:0 0 PM EDT 03/14/2020 2:06 AM EDT [facility] Provider LAB BLOOD ORDERABLES Fi nal Result Performing Organization Address City/[facility] Co de Phone Number KIT [facility] [address] [phone] * URINALYSIS UA RFLX MICROSCOPIC CULT IF IND ([facility] BKR DATA CONV) (03/13/2020 10:00 PM EDT) Urine Type. U CleanCatch 03/14/2020 2:07 AM EDT Urine Color Yellow 03/14/2020 2:10 AM EDT Comment: Substances that cause HIGHLY abnormal urine color may affect the accuracy of URINE CHEMISTRY reagent strip results due to colorimetric interference. ??These include visible levels of blood or bilirubin, drugs containing dyes, and some antibiotics such as nitrofurantoin and riboflavin which can cause markedly abnormal urine coloration. Urine Appearance Clear 03/14/20 20 2:10 AM EDT Urine Specific [place] 1.021 1.005 - 1.030 03/14/2020 2:10 AM EDT Urine pH Dipstick 6.5 6.0 - 8.0 03/14/2020 2:10 AM EDT Urine Leukocyte Esterase Negative Negative 03/14/2020 2:10 AM EDT Urine Nitrite Negative Negative 03/14/2020 2:10 AM EDT Urine Protein Dipstick Negative Negative 03/14/2020 2:10 AM EDT Comment:Use of urine preserv atives may elevate protein results and reduce bilirubin, blood and nitrite results. Urine Glucose Dipstick Negative Negative 03/14/2020 2:10 AM EDT Urine Ketones Dipstick Negative Negative 03/14/2020 2:10 AM EDT Urine Urobilinogen Dipstick 0.2 EU/dL 03/14/2020 2:10 AM EDT Urine Bilirubin Dipstick Negative Negative 03/14/2020 2:10 AM EDT Urine Blood Dipstick Negative Negative 03/14/2020 2:10 AM EDT 03/13/2020 10:0 0 PM EDT 03/14/2020 2:07 AM EDT [facility] Historical Provider URINE ORDERABLES Final Result Performing Organization Address [facility] de Phone Number KIT [facility] [address] [phone] * (ABNORMAL) TROPONIN I ULTRA ([facility] BKR DATA CONV) (03/13/2020 10:00 PM EDT) TroponinI Ultra 0.074(H) 0.015 - 0.045 ng/mL 03/14/2020 2:23 AM EDT Comment: Troponin Result (ng/ml) ?* Interpretation 0.015 ? 0.045 ?* ??Normal; less than 99th percentile of normal range >0.045 ? * Abnormal; greater than 99th percentile of normal range. ?? Test precision at 0.045 ng/ml is less than 10% Coefficient of Variation. Blood 03/13/2020 10:0 0 PM EDT 03/14/2020 2:04 AM EDT [facility] Historical Provider LAB BLOOD ORDERABLES Fi nal Result Performing Organization Address [facility] Co de Phone Number KIT [facility] [address] [phone] * (ABNORMAL) URINALYSIS MICROSCOPIC ([facility] BKR DATA CONV) (03/13/2020 10:00 PM EDT) Correlate UA Correlated Correlated 03/14/2020 2:18 AM EDT Ur Mucous Trace(A) 03/14/2020 2:18 AM EDT 03/13/2020 10:0 0 PM EDT 03/14/2020 2:07 AM EDT Narrative KIT [facility] - 03/14/2020 2:18 AM EDT Added by Discern Expert [facility] Historical Provider URINE ORDERABLES Final Result [facility]IT [facility] [address] [phone] * (ABNORMAL) CMP COMPREHENSIVE METABOLIC PANEL ([facility] BKR DATA CONV) (03/13/2020 10:00 PM EDT) Sodium Level 140 136 - 146 mmol/L 03/14/2020 2:23 AM EDT Potassium Level 5.0 3.5 - 5.1 mmol/L 03/14/2020 2:23 AM EDT Comment:Specimen slightly he molyzed. Chloride Level 104 102 - 112 mmol/L 03/14/2020 2:23 AM EDT Carbon Dioxide Level 30 21 - 32 mmol/L 03/14/2020 2:23 AM EDT Anion Gap 11 9 - 20 03/14/2020 2:23 AM EDT Calcium Level 9.4 8.4 - 10.1 mg/dL 03/14/2020 2:23 AM EDT Glucose Level 129(H) 74 - 106 mg/dL 03/14/2020 2:23 AM EDT Comment: [employer] has become aware of sulfasalazine and sulfapyridine drug interference in the assays ALT, AST, T4, CKMB, glucose, and ammonia. The probability of misinterpretation of results for the assays is remote and would be limited to scenarios where a patient has taken the drug and had a blood sample drawn before clearance of the drug to a level that does not interfere with laboratory testing. Venipuncture should occur prior to administration of the drug. Blood Urea Nitrogen 24(H) 7 - 22 mg/dL 03/14/2020 2:23 AM EDT Creatinine Level 1.20 0.70 - 1.30 mg/dL 03/14/2020 2:23 AM EDT Bun/Creatinine 20.0 8.0 - 20.0 03/14/2020 2:23 AM EDT Albumin Level 3.8 3.4 - 5.0 Gram/dL 03/14/2020 2:23 AM EDT Protein, Total 7.6 6.4 - 8.2 Gram/dL 03/14/2020 2:23 AM EDT A/G Ratio 1.0(L) 1.1 - 2.5 03/14/2020 2:23 AM EDT Alk Phos 78 27 - 136 Units/Lit er 03/14/2020 2:23 AM EDT ALT 34 16 - 61 Units/Lit er 03/14/2020 2:23 AM EDT Comment: [employer] has become aware of sulfasalazine and sulfapyridine drug interference in the assays ALT, AST, T4, CKMB, glucose, and ammonia. The probability of misinterpretation of results for the assays is remote and would be limited to scenarios where a patient has taken the drug and had a blood sample drawn before clearance of the drug to a level that does not interfere with laboratory testing. Venipuncture should occur prior to administration of the drug. AST 42(H) 5 - 37 Units/Lit er 03/14/2020 2:23 AM EDT Comment: [employer] has become aware of sulfasalazine and sulfapyridine drug interference in the assays ALT, AST, T4, CKMB, glucose, and ammonia. The probability of misinterpretation of results for the assays is remote and would be limited to scenarios where a patient has taken the drug and had a blood sample drawn before clearance of the drug to a level that does not interfere with laboratory testing. Venipuncture should occur prior to administration of the drug. Bilirubin, Total 0.6 0.2 - 1.2 mg/dL 03/14/2020 2:23 AM EDT Comment: Total bilirubin results may be falsely elevated in patients undergoing treatment with eltrombopag (Promacta). Results should be correlated to clinical symptomology and additional laboratory testing including other markers for liver function, e.g., alanine aminotransferase, aspartate aminotransferase, alkaline phosphatase, and/or lactate dehydrogenase. Globulin 3.8 1.5 - 4.5 Gram/dL 03/14/2020 2:23 AM EDT eGFR >60 >=60 mL/min/1. 73m2 03/14/2020 2:24 AM EDT Comment: GFR <60 suggests chronic kidney disease, if found over 3 month period. GFR <15 indicates renal failure. eGFR NonAfrican 58(L) >=60 mL/min/1. 73m2 03/14/2020 2:24 AM EDT Comment: GFR <60 suggests chronic kidney disease, if found over 3 month period. GFR <15 indicates renal failure. Blood 03/13/2020 10:0 0 PM EDT 03/14/2020 2:04 AM EDT [facility] Provider LAB BLOOD ORDERABLES Fi nal Result Performing Organization Address City/[facility]/ZIP Co de Phone Number KIT [facility] [address] [phone] * PROBNP ([facility] BKR DATA CONV (03/13/2020 10:00 PM EDT) ProBNP 377 0 - 450 pg/mL 03/14/2020 2:23 AM EDT Blood 03/13/2020 10:0 0 PM EDT 03/14/2020 2:04 AM EDT [facility] Provider LAB BLOOD ORDERABLES Fi nal Result Performing Organization Address [facility] Co de Phone Number KIT [facility] [address] [phone] * MAGNESIUM LEVEL ([facility] BKR DATA CONV) (03/13/2020 10:00 PM EDT) Magnesium Level 1.9 1.5 - 2.4 mg/dL 03/14/2020 2:23 AM EDT Blood 03/13/2020 10:0 0 PM EDT 03/14/2020 2:04 AM EDT [facility] Provider LAB BLOOD ORDERABLES Fi nal Result Performing Organization Address City/[facility]/ZIP Co de Phone Number KIT [facility] [address] [phone] * (ABNORMAL) CBC W/ AUTO DIFF ([facility] BKR DATA CONV) (03/13/2020 10:00 PM EDT) WBC 4.8 3.6 - 9.5 K/uL 03/14/2020 2:07 AM EDT RBC 4.15(L) 4.20 - 5.70 Million/uL 03/14/2020 2:07 AM EDT Hgb 14.0 13.5 - 17.3 g/dL 03/14/2020 2:07 AM EDT Hct 41.6 40.1 - 51.0 % 03/14/2020 2:07 AM EDT MCV 100.2(H) 79.0 - 94.8 fL 03/14/2020 2:07 AM EDT MCH 33.7(H) 25.6 - 32.2 pg 03/14/2020 2:07 AM EDT MCHC 33.7 32.2 - 36.5 Gram/dL 03/14/2020 2:07 AM EDT RDW 11.8 11.7 - 14.9 % 03/14/2020 2:07 AM EDT Platelet Count 169 163 - 369 K/uL 03/14/2020 2:07 AM EDT MPV 9.8 9.4 - 12.4 fL 03/14/2020 2:07 AM EDT Slide Review No 03/14/2020 2:07 AM EDT Blood 03/13/2020 10:0 0 PM EDT 03/14/2020 2:04 AM EDT [facility] Historical Provider LAB BLOOD ORDERABLES Fi nal Result KIT [facility] [address] [place] [address], [facility] [phone] documented in this encounter Visit Diagnoses Not on filedocumented in this encounter
--- OUTSIDE RECORDS SUMMARY | 2024-07-21 17:17 | XMS_ITS | Encounter Summary ---
Author Organization [employer] Address [address] [place] [address] Care Team Providers Care Special Order Jeweler Name Role Phone AveryAllyson la YOKO Primary Care Provider + [phone] Encounter Details Date Type Department Care Team (Late st Contact Info) Description 07/02/2019 Transcribed Document [facility] [place] [address] [place] [id number] ProviderTatiana MD [address] [place] [address] [id number] Social History Tobacco Use Types Packs/Day Years Used Date Smoking Tobacco: Never Assessed Sex and Gender Information Value Date Recorded Sex Assigned at Not on file Legal Sex Male 5:33 PM CDT Gender Identity Not on file Sexual Orientation Not on file documented as of this encounter Miscellaneous Notes * [employer]ner Conversion Note - Tatiana ProviderMD - 07/02/2019 1:04 PM CDT Nursing Discharge Summary Entered On: 07/02/2019 13:04 EDT Performed On: 07/02/2019 13:04 EDT by Heath Haywood bailer tenders supervisor Documentation Discharge Date/Time : 07/02/2019 13:04 EDT Patient Disposition, General : Discharge Discharge To : Home with ambulatory/outpatient follow-up Mode Of Departure, General Discharge : Private vehicle Accompanied By, Discharge : Daughter IV Discontinued : Yes Medications Given to Patient : No Personal Belongings With Patient : Yes Pt's Own Supply of Medications Returned : No Prescriptions Given to Patient : Electronically sent Discharge Instructions Reviewed With, Opportunity For Questions Given : Patient, Daughter Patient Education Completed : Yes Teaching Method : Explanation, Printed materials Teaching Evaluation : Verbalizes understanding Heath Haywood RN - 07/02/2019 13:04 EDT Electronically signed by Angel, [facility] Conversion Survey Technologist Cerner at 12/20/2022 12:26 PM CDT documented in this encounter Plan of Treatment Not on file documented as of this encounter Visit Diagnoses Not on filedocumented in this encounter Care Teams Special Order Jeweler Relationship Specialty Start Date End Date Allyson Avery, ENVIRONMENTAL SERVICES ASSOCIATE [address] [facility] [address] [place] [phone] PCP - General Nurse Practitioner 02/06/23 documented as of this encounter
--- OUTSIDE RECORDS SUMMARY | 2024-07-21 17:17 | XMS_ITS | Encounter Summary ---
Author Organization [facility] In iatives Address [address] [place] [address] Care Team Providers Care Bulk Driver Name Role Phone Allyson Avery AIRPORT OPERATIONS OFFICER Primary Care Provider + [phone] Encounter Details Date Type Department Care Team (Late st Contact Info) Description 07/02/2019 Transcribed Document [facility] 1 [place] [address] Jf Gallagher MD [address] [place] [address] [address] [place] [address] Social History Tobacco Use Types Packs/Day Years Used Date Smoking Tobacco: Never Assessed Sex and Gender Information Value Date Recorded Sex Assigned at Not on file Legal Sex Male 5:33 PM CDT Gender Identity Not on file Sexual Orientation Not on file documented as of this encounter Miscellaneous Notes * Cerner Conversion Note - Jf Gallagher MD - 07/02/2019 11:21 AM EDT Patient: PAT MENCHACA Age: 78 years Sex: Male : 1940 Associated Diagnoses: None Author: JF GALLAGHER MD-INT Subjective PCP: [facility] DOA: 07/01/2019 DOD: 07/02/2019 HPI: Patient admitted with chest pain, elevated troponin and 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 CODE STATUS: Full code CONSULTS: [facility] cardiology WORKUP / PROCEDURES: GALLBLADDER ULTRASOUND FINDINGS: The gallbladder is well filled. There are no gallstones, pericholecystic fluid, or gallbladder wall thickening. The common duct measures 2 mm. This is within normal limits for age. The visualized surrounding soft tissues are within normal limits. IMPRESSION: No gallstones, pericholecystic fluid, or gallbladder wall thickening. Normal common duct. HOSPITAL FOLLOWUP: 07/01/2019 Patient was admitted this morning by Dr. Capellan. Chart reviewed. H&P reviewed. Discussed with the patient in the presence of his son. Cardiology Consult reviewed. 07/02/2019 Patient is resting in chair having breakfast. No new complains including no chest pain, no fever, no dyspnea. Family is at bedside and patient is anxious to go home. Health Status Allergies: Allergic Reactions (Selected) No Known Allergies Current medications: (Selected) Inpatient Medications Ordered Coenzyme Q10: 400 mg, Oral, Daily Colace: 400 mg, Oral, At Bedtime Crestor: 40 mg, Oral, Saturday Fish Oil: 2,000 mg, Oral, BID Nephrocaps: 1 Cap, Oral, Daily Nitrostat: 0.4 mg, SubLINgual, Q5Min, PRN: Chest Pain Plavix: 75 mg, Oral, Daily Protonix: 40 mg, Oral, Daily Ranexa: 500 mg, Oral, Daily Welchol: 1,250 mg, Oral, At Bedtime Welchol: 625 mg, Oral, QAM Zofran: 4 mg, IV Push, Q4H, PRN: Nausea acetaminophen: 650 mg, Oral, Q6H, PRN: Fever allopurinol: 100 mg, Oral, Daily amLODIPine: 5 mg, Oral, Daily aspirin: 81 mg, Oral, Daily heparin: 5,000 Units, SubCutaneous, Q8H insulin lispro sliding scale: Scale C:, SubCutaneous, AC and at Bedtime levothyroxine: 75 mcg, Oral, Daily lisinopril: 20 mg, Oral, Daily metoprolol tartrate: 12.5 mg, Oral, BID nitroglycerin injection 25 mg + D5W Premix Diluent for Drip 250 mL: TITRATE, IntraVENous Documented Medications Documented Aspirin Low Dose 81 [...] Cap, Oral, Daily, 30 Cap, 0 Refill(s) NexIUM: 40 mg, Oral, Daily, 0 Refill(s) Osteo Bi-Flex Plus MSM: 1 [...] tablet 1 Tab, Oral, Daily NexIUM 40 mg, Oral, Daily NexIUM 40 mg oral delayed [...] 22:24) Apical HR 69 (JUL 02 09:06) 68 (JUL 01 11:08) 72 (JUL 01 20:52) Mon HR 61 (JUL 02 06:18) 55 (JUL 02 02:34) 71 (JUL 01 21:00) Resp Rate 16 (JUL 02 06:18) 16 (JUL 02 02:34) 18 (JUL 01 11:00) SBP 120 (JUL 02 06:18) 110 (JUL 01 22:24) 127 (JUL 01 11:00) DBP 72 (JUL 02 06:18) L 58 (JUL 01 22:24) 72 (JUL 02 06:18) MAP 87 (JUL 02 06:18) 74 (JUL 01 21:00) 98 (JUL 01 11:00) SpO2 96 (JUL 02 08:00) 94 (JUL 01 22:24) 97 (JUL 01 15:30) General: Alert and oriented, No acute distress. Eye: Pupils are equal, round and reactive to light, Normal conjunctiva. HENT: Normocephalic, Oral mucosa is moist. Neck: Supple, Non-tender, No jugular venous distention. Respiratory: Lungs are clear to auscultation, Respirations are non-labored, Breath sounds are equal. Cardiovascular: Normal rate, S1, S2. Gastrointestinal: Soft, Non-tender, Non-distended, Normal bowel sounds. Musculoskeletal: Normal range of motion, No tenderness. Integumentary: Warm, Moist. Neurologic: Alert, Oriented, Normal motor function, No focal deficits. Psychiatric: Cooperative. Results Review Radiology Results (Last 48 hours) [id number] -- 07/01/2019 01:59 CR Chest 1 Vw Portable (07/01/2019 00:50) Result: CHEST SINGLE VIEWCOMPARISON: Chest from 26 June 2017.HISTORY: Chest pain.FINDINGS: Cardiac silhouette is mildly enlarged. Multiple mediansternotomy wires are present. Left subclavian double lead pacemaker ispresent.Lungs are clear.IMPRESSION:1. No acute infiltrate. US Gallbladder (07/01/2019 10:03) Result: GALLBLADDER ULTRASOUNDINDICATION: Right upper quadrant pain.TECHNIQUE: Limited sonographic images of the right upper quadrant,focusing on the gallbladder, were obtained.COMPARISON: None.FINDINGS: The gallbladder is well filled. There are no gallstones,pericholecystic fluid, or gallbladder wall thickening. The common ductmeasures 2 mm. This is within normal limits for age. The visualizedsurrounding soft tissues are within normal limits. IMPRESSION: No gallstones, pericholecystic fluid, or gallbladder wallthickening. Normal common duct. JUL 02 06:20 136 105 16 / H 143 3.9 24 1.10 \ JUL 02 06:20 \ L 13.0 / 9.2 170 / L 38.6 \ Impression and Plan Assessment and Plan: Diagnosis. Discharge DIAGNOSIS: Chest pain with elevated troponin, likely non-ST elevation UT? Followed by cardiology and cleared for discharge. History of coronary artery disease and CABG Sick sinus syndrome and history of permanent pacemaker Essential hypertension Hyper lipidemia Hyperuricemia DC instructions: 1- DC home today if okay with cardiology. 2- Follow with cardiology instructions. 3- Follow with PCP as scheduled. Discharge Medications (18) Active allopurinol 100 mg oral [...] Tab, Oral, At Bedtime DC time spent: 31 minutes Cc DC summary to: PCP, cardiology documented in this encounter Plan of Treatment Not on file documented as of this encounter Visit Diagnoses Not on filedocumented in this encounter Care Teams Bulk Driver Relationship Specialty Start Date End Date Allyson Avery, YOKO [address] [address] [place] [address] PCP - General Nurse Practitioner 02/06/23 documented as of this encounter
--- OUTSIDE RECORDS SUMMARY | 2024-07-21 17:17 | XMS_ITS | Encounter Summary ---
Author Organization [facility] Init iatives Address [address] [place] [address] Care Team Providers Care Capacity Planning Manager Name Role Phone Unavailable Primary Care Provider Unavailabl e Encounter Details Date Type Department Care Team (Late st Contact Info) Description 07/01/2019 Historic Encounter [facility] [address] [place] [address] Provider, [facility] Historical Social History Tobacco Use Types [...] Procedure Name Priority Date/Time Associated Diagnosis Comments PROBNP ([facility] BK DATA CONV Routine 07/01/2019 12:50 AM EDT documented in this encounter Results * PROBNP ([facility] BKR DATA CONV (07/01/2019 12:50 AM EDT) ProBNP 379 0 - 450 pg/mL 07/01/2019 5:19 AM EDT Blood 07/01/2019 12:5 0 AM EDT 07/01/2019 5:04 AM EDT us [facility] Historical Provider LAB BLOOD ORDERABLES Fi nal Result [facility] 1 [place], [place] [address] [phone] documented in this encounter Visit Diagnoses Not on filedocumented in this encounter
--- OUTSIDE RECORDS SUMMARY | 2024-07-21 17:17 | XMS_ITS | Encounter Summary ---
Author Organization [facility] In iatives Address [address] [place] [address] Care Team Providers Care Rural Route Mail Carrier Name Role Phone Bennie Allyson BABCOCK Primary Care Provider + [phone] Encounter Details Date Type Department Care Team (Late st Contact Info) Description 07/01/2019 Transcribed Document [facility] [place] [address] [place] [address] ProviderTatiana MD [address] [place] [address] Social History Tobacco Use Types Packs/Day Years Used Date Smoking Tobacco: Never Assessed Sex and Gender Information Value Date Recorded Sex Assigned at Not on file Legal Sex Male 5:33 PM CDT Gender Identity Not on file Sexual Orientation Not on file documented as of this encounter Miscellaneous Notes * Cerner Conversion Note - Historical ProviderMD - 07/01/2019 4:00 AM CDT Height and Weight, Routine Entered On: 07/01/2019 6:26 EDT Performed On: 07/01/2019 4:00 EDT by Deedee Aiken, Adjunct English Instructor-Student Nurse Height and Weight, Routine Routine Weight Source : Bed scale Routine Weight Entry Format : Metric Routine Weight, Kilograms : 78.8 kg(Converted to: 173 lb 12 oz) Routine Weight Calculation : 78.8 kg Height Source : Stated Height Entry Format : [place] Height, Feet : 5 ft Height, Inches : 9 Inch Clinical Height : 175.26 cm Body Surface Area (BSA), Routine : 1.95 m2 Body Mass Index (BMI), Routine : 25.65 kg/m2 Deedee Aiken, Adjunct English Instructor-Student Nurse - 07/01/2019 6:25 EDT documented in this encounter Plan of Treatment Not on file documented as of this encounter Visit Diagnoses Not on filedocumented in this encounter Care Teams Rural Route Mail Carrier Relationship Specialty Start Date End Date Allyson Avery, SENIOR COGNOS DEVELOPER [address] [address] PCP - General Nurse Practitioner 02/06/23 documented as of this encounter
--- OUTSIDE RECORDS SUMMARY | 2024-07-21 17:17 | XMS_ITS | Encounter Summary ---
Author Organization [facility] In iatives Address [address] [place] [address] Care Team Providers Care Student Services Vice President Name Role Phone Bennie Allyson YOKO Primary Care Provider + [phone] Encounter Details Date Type Department Care Team (Late st Contact Info) Description 07/02/2019 Transcribed Document [facility] [address] [place] [address] ProviderTatiana MD [address] [place] [address] Social History Tobacco Use Types Packs/Day Years Used Date Smoking Tobacco: Never Assessed Sex and Gender Information Value Date Recorded Sex Assigned at Not on file Legal Sex Male 5:33 PM CDT Gender Identity Not on file Sexual Orientation Not on file documented as of this encounter Miscellaneous Notes * Cerner Conversion Note - Historical ProviderMD - 07/02/2019 2:00 AM CDT Cotton Bag Sewer Details Entered On: 07/02/2019 2:23 EDT Performed On: 07/02/2019 2:00 EDT by Michela Joseph RN Order Details Transport Mode Order Detail : Wheelchair Isolation Precautions Order Detail : Standard Precautions Order Detail : N/A IV Order Detail : 1 Oxygen Order Detail : 0 Lift/Transfer : Minimal Central Line Order Detail : No Room Service : Not Appropriate Arterial Line : No Michela Joseph RN - 07/02/2019 2:23 EDT documented in this encounter Plan of Treatment Not on file documented as of this encounter Visit Diagnoses Not on filedocumented in this encounter Care Teams Student Services Vice President Relationship Specialty Start Date End Date Allyson Avery, FIRE PROTECTION INSPECTOR [address] [facility] [address] [place] [address] PCP - General Nurse Practitioner 02/06/23 documented as of this encounter
--- OUTSIDE RECORDS SUMMARY | 2024-07-21 17:17 | XMS_ITS | Encounter Summary ---
Author Organization [facility] In iatives Address [address] [place] [address] Care Team Providers Care School Lunch Manager Name Role Phone Bennie Allyson BABCOCK Primary Care Provider + [phone] Encounter Details Date Type Department Care Team (Late st Contact Info) Description 07/01/2019 Transcribed Document [facility] [place] [address] ProviderTatiana MD [address] [place] [id number] Social History Tobacco Use Types Packs/Day Years Used Date Smoking Tobacco: Never Assessed Sex and Gender Information Value Date Recorded Sex Assigned at Not on file Legal Sex Male 5:33 PM CDT Gender Identity Not on file Sexual Orientation Not on file documented as of this encounter Miscellaneous Notes * Cerner Conversion Note - Tatiana ProviderMD - 07/01/2019 2:18 PM CDT Initial Discharge Planning Entered On: 07/01/2019 14:29 EDT Performed On: 07/01/2019 14:18 EDT by ALMA COSTA, RN-Care Management Initial Assessment I Previously Documented Living Environment : No qualifying data available. Living Situation : Other: w/son and mother Patient Lives With : Other: son and mother Emergency Contact #1 : Jake Nikolai Emergency Contact #1 Emergency Contact #1 Relationship : Son Emergency Contact #2 : Merle Nikolai Emergency Contact #2 Emergency Contact #2 Relationship : Enter Doctors Name : Dr Heath Feldman Does Patient have PCP Listed? : Yes Legal Guardian : No ALMA COSTA RN-Care Management - 07/01/2019 14:18 EDT Initial Assessment II Sensory and Motor Deficits : None Current Home Treatments and Equipment : None ALMA COSTA RN-Care Management - 07/01/2019 14:18 EDT Discharge Needs I Anticipated Discharge Date : 07/02/2019 EDT Anticipated Discharge To, CM : Other: indep w/adls, w/son and mother Current Home Treatment/Equipment : Current Home Treatment/Equipment No qualifying data available. Documentation Status Complete : Yes ALMA COSTA RN-Care Management - 07/01/2019 14:18 EDT Discharge Needs II Professional Skilled Services : Professional Skilled Services No qualifying data available. Needs Assistance with Transportation : No Discharge Options Discussed with Patient : Discharge transportation, DME, Home Health, Short term rehabilitation ALMA COSTA RN-Care Management - 07/01/2019 14:18 EDT Narrative Note Narrative Note : Intial assessment performed w/pt and son at bedside. Pt reports he is indep w/adls and drives self. denies any dme/snf/hh hx. In as observation, and anticipate d/c tomorrow w/pacemaker x2 years and awaiting Echo to be performed today. Pt w/o any needs at this time for discharge, will cont to follow until released. ALMA COSTA RN-Care Management - 07/01/2019 14:18 EDT Electronically signed by Aruna Ortiz Conversion Travel Counselor [employer] Cerner at 12/20/2022 12:06 PM CDT documented in this encounter Plan of Treatment Not on file documented as of this encounter Visit Diagnoses Not on filedocumented in this encounter Care Teams School Lunch Manager Relationship Specialty Start Date End Date Allyson Avery APRN [address] [address] PCP - General Nurse Practitioner 02/06/23 documented as of this encounter
--- OUTSIDE RECORDS SUMMARY | 2024-07-21 17:17 | XMS_ITS | Encounter Summary ---
Author Organization [facility] In iatives Address [address] [place] [address] Care Team Providers Care Credit Analysis Manager Name Role Phone Unavailable Primary Care Provider Gillian e Encounter Details Date Type Department Care Team (Late st Contact Info) Description 07/01/2019 Historic Encounter [address] [address] ProviderBelle Historical Social History Tobacco [...] Procedure Name Priority Date/Time Associated Diagnosis Comments GLUCOSE-POC Routine 07/01/2019 6:50 AM EDT AUTOMATED DIFFERENTIAL ([facility] BK DATA CONV) Routine 07/01/2019 12:50 AM EDT documented in this encounter Results * (ABNORMAL) Glucose, Point of Care (07/01/2019 6:50 AM EDT) Glucose POC2 170(H) 70 - 110 mg/dL 07/01/2019 10:50 AM EDT [facility] Manager Retail Store [phone] 07/01/2019 10:50 AM EDT [facility] Device SN [id number] 07/01/2019 10:50 AM EDT [facility] Device Comment1 Notified Nurse RBV 07/01/2019 10:50 AM EDT [facility] Blood 07/01/2019 6:50 AM EDT 07/01/2019 10:55 AM EDT [facility] Historical Provider POINT OF CARE TEST ALIZESaw IRVING Final Result [facility] [address] [id number], [facility] [phone] * (ABNORMAL) AUTOMATED DIFFERENTIAL ([facility] BKR DATA CONV) (07/01/2019 12:50 AM EDT) Neut% 91.4(H) 34.0 - 71.0 % 07/01/2019 5:24 AM EDT Lymph% 3.8(L) 19.3 - 53.1 % 07/01/2019 5:24 AM EDT Liberty% 3.7 3.0 - 9.0 % 07/01/2019 5:24 AM EDT Eos% 0.3 0.0 - 7.0 % 07/01/2019 5:24 AM EDT Baso% 0.4 0.0 - 1.5 % 07/01/2019 5:24 AM EDT IG% 0.40 0.00 - 0.60 % 07/01/2019 5:24 AM EDT Neut# 10.23(H) 1.56 - 6.13 K/uL 07/01/2019 5:24 AM EDT Lymph# 0.43(L) 1.00 - 3.90 x10(3)/uL 07/01/2019 5:24 AM EDT Liberty# 0.41 0.16 - 1.00 K/uL 07/01/2019 5:24 AM EDT Eos# 0.03 0.00 - 0.80 x10(3)/uL 07/01/2019 5:24 AM EDT Baso# 0.05 0.00 - 0.20 x10(3)/uL 07/01/2019 5:24 AM EDT IG# 0.05 0.00 - 0.05 x10(3)/uL 07/01/2019 5:24 AM EDT Blood 07/01/2019 12:5 0 AM EDT 07/01/2019 4:55 AM EDT Narrative [facility] - 07/01/2019 5:25 AM EDT Added by Discern Expert us Sle Historical Provider LAB BLOOD ORDERABLES Fi nal Result Performing Organization Address City/State/[facility] Co de Phone Number [facility] [address] [phone] documented in this encounter Visit Diagnoses Not on filedocumented in this encounter
--- OUTSIDE RECORDS SUMMARY | 2024-07-21 17:17 | XMS_ITS | Encounter Summary ---
Author Organization [facility] [employer] In iatives Address [address] [place] [address] Care Team Providers Care Cupola Liner Helper Name Role Phone Avery, Allyson YOKO Primary Care Provider + [phone] Encounter Details Date Type Department Care Team (Late st Contact Info) Description 07/01/2019 Transcribed Document [facility] [place] [facility] [place] [address] ProviderTatiana MD [address] [place] [phone] Social History Tobacco Use Types Packs/Day Years Used Date Smoking Tobacco: Never Assessed Sex and Gender Information Value Date Recorded Sex Assigned at Not on file Legal Sex Male 5:33 PM CDT Gender Identity Not on file Sexual Orientation Not on file documented as of this encounter Miscellaneous Notes * Cerner Conversion Note - Tatiana ProviderMD - 07/01/2019 12:14 AM CDT ED Assessment Entered On: 07/01/2019 1:03 EDT Performed On: 07/01/2019 1:01 EDT by Oriana Bautista, RADIO DISPATCHER Quick Look Assessment Level of Consciousness : Alert, Awake Affect/Behavior : Appropriate, Calm, Cooperative Orientation : Oriented x 4 Skin Temperature : Warm Oriana Bautista, RN - 07/01/2019 1:01 EDT ED General-Functional Assess Information Obtained From : Patient Preferred Communication Mode : Verbal Communication Barrier : None Primary Language : Bruneian Any Spiritual/Cultural Needs or Requests : No Currently in Unsafe Situation : No Living Situation : Home Oriana Bautista, RN - 07/01/2019 1:01 EDT Social Habits Smoking Status : Never (less than 100 in lifetime; none in last 30 days) Smokeless Tobacco Status : Never Desires Tobacco Cessation Calc : 0 Oriana Bautista RN - 07/01/2019 1:01 EDT Social History (As Of: 07/01/2019 01:03:41 EDT) Tobacco: Use in Last 12 Months: No. Smoking Status Never smoker. Second Hand Smoke Exposure: No. Tobacco Use/Smoking within Last 30 Days No. (Last Updated: 12/28/2015 05:03:08 EDT by Sara Mcdonald, Khris) Alcohol: Alcohol Use History No. (Last Updated: 12/28/2015 04:57:31 EDT by Sara Mcdonald, Khris) Substance Abuse: Drug Use Hx: No. Use in Last 12 Months: No. (Last Updated: 12/28/2015 05:03:24 EDT by Sara Mcdonald, Khris) Nutrition/Health: Type of diet: several teeth removed in the last 6 months and having difficulty chewing. Regular, Caffeine intake amount: none. (Last Updated: 12/28/2015 05:02:33 EDT by Sara Mcdonald Rn) Exercise: Exercise duration: 0. (Last Updated: 12/28/2015 05:00:33 EDT by Sara Mcdonald, Khris) Home/Environment: Lives with Spouse. Living situation: Home/Independent. [...] (Last Updated: 12/28/2015 04:59:07 EDT by Sara cMdonald, Rn) Sexual: Sexually active: No. (Last Updated: 12/28/2015 05:03:16 EDT by Sara Mcdonald, Rn) Cardiovascular ASMT, ED Detailed Cardiovascular Assessment : Open Oriana Bautista RN - 07/01/2019 1:04 EDT Cardiovascular Assessment WDL : WDL with exceptions Cardiovascular Symptoms : Chest discomfort at rest Heart Rhythm : Regular Chest Pain : Yes Oriana Bautista, RN - 07/01/2019 1:01 EDT Cardiovascular ASMT, Detailed Cardiac Rhythm : Paced rhythm Oriana Bautista RN - 07/01/2019 1:04 EDT Respiratory Respiratory Assessment WDL : WDL Cough : None Oriana Bautista, RN - 07/01/2019 1:01 EDT Breath Sounds Assessment Grid All Lobes Breath Sounds : Clear Oriana Bautista, RN - 07/01/2019 1:01 EDT Respiratory Pattern Description : Regular Sputum Amount : None Oriana Bautista, KHRIS - 07/01/2019 1:01 EDT Oxygen Therapy Oxygen Therapy Mode : Room air Oriana Bautista RN - 07/01/2019 1:01 EDT Gastrointestinal ED Gastrointestinal Assessment WDL : WDL with exceptions Gastrointestinal Symptoms : Nausea Oriana Bautista RN - 07/01/2019 1:01 EDT Genitourinary Assessment, ED Genitourinary Assessment WDL : WD Oriana Bautista RN - 07/01/2019 1:01 EDT Musculoskeletal Musculoskeletal Assessment WDL : WDL Oriana Bautista RN - 07/01/2019 1:01 EDT Integumentary Assessment Integumentary Assessment WDL : WDL Oriana Bautista RN - 07/01/2019 1:01 EDT Neurologic ASMT, ED Neurologic Assessment WDL : WDL Neurological Symptoms : None Level of Consciousness : Alert, Awake Affect/Behavior : Appropriate, Calm, Cooperative Speech : Clear Orientation : Oriented x 4 Oriana Bautista RN - 07/01/2019 1:01 EDT documented in this encounter Plan of Treatment Not on file documented as of this encounter Visit Diagnoses Not on filedocumented in this encounter Care Teams Cupola Liner Helper Relationship Specialty Start Date End Date Allyson Avery, AUTO STRIPER [address] [place] [address] [place] [address] PCP - General Nurse Practitioner 02/06/23 documented as of this encounter
--- OUTSIDE RECORDS SUMMARY | 2024-07-21 17:17 | XMS_ITS | Encounter Summary ---
Author Organization [facility] In iatives Address [address] [place] [address] Care Team Providers Care Buildings And Grounds Superintendent Name Role Phone Bennie Allyson YOKO Primary Care Provider + [phone] Encounter Details Date Type Department Care Team (Late st Contact Info) Description 07/01/2019 Transcribed Document [facility] [place] [address] [place] [address] ProviderTatiana MD [address] [place] [address] Social History Tobacco Use Types Packs/Day Years Used Date Smoking Tobacco: Never Assessed Sex and Gender Information Value Date Recorded Sex Assigned at Not on file Legal Sex Male 5:33 PM CDT Gender Identity Not on file Sexual Orientation Not on file documented as of this encounter Miscellaneous Notes * Cerner Conversion Note - Historical ProviderMD - 07/01/2019 3:29 AM CDT Education-(VTE) / (DVT) Entered On: 07/01/2019 4:56 EDT Performed On: 07/01/2019 3:29 EDT by Sixto Shelton RN Teaching/Learning Assessment Barriers To Learning : Hearing deficit Individuals Taught : Patient, Child Readiness to Learn : Cooperative Baseline Knowledge of Topic : Limited Readiness to Learn : Demonstration, Explanation, Printed materials, Teach back method System Generated Printed Materials *Q : Yes Learning Style Preferences Patient : None Learning Style Preferences Family : None Sixto Shelton, RN - 07/01/2019 4:56 EDT documented in this encounter Plan of Treatment Not on file documented as of this encounter Visit Diagnoses Not on filedocumented in this encounter Care Teams Buildings And Grounds Superintendent Relationship Specialty Start Date End Date Allyson Avery, CUT OFF SAW OPERATOR PIPE BLANKS [address] [address] PCP - General Nurse Practitioner 02/06/23 documented as of this encounter
--- OUTSIDE RECORDS SUMMARY | 2024-07-21 17:17 | XMS_ITS | Encounter Summary ---
Author Organization [facility] In iatives Address [address] [place] [address] Care Team Providers Care Control Panel Builder Name Role Phone Unavailable Primary Care Provider Unavaillulu e Encounter Details Date Type Department Care Team (Late st Contact Info) Description 07/01/2019 Historic Encounter [address] [address] ProviderCasey Historical Social History Tobacco Use Types Packs/Day [...] Priority Date/Time Associated Diagnosis Comments GLUCOSE-POC Routine 07/02/2019 11:02 AM EDT ESR SEDIMENTATION RATE AUTO ([facility] DATA CONV) Routine 07/01/2019 4:51 AM EDT TROPONIN I ULTRA ([facility] DATA CONV) Routine 07/01/2019 4:51 AM EDT CMP COMPREHENSIVE METABOLIC PANEL ([facility]KR DATA CONV) Routine 07/01/2019 12:50 AM EDT documented in this encounter Results * (ABNORMAL) Glucose, Point of Care (07/02/2019 11:02 AM EDT) Glucose POC2 260(H) 70 - 110 mg/dL 07/02/2019 3:02 PM EDT [facility] Vertical Mill Operator [id number] 07/02/2019 3:02 PM EDT [facility] Device SN [id number] 07/02/2019 3:02 PM EDT [facility] Device Comment1 Notified Nurse RBV 07/02/2019 3:02 PM EDT [facility] Blood 07/02/2019 11:0 2 AM EDT 07/02/2019 3:05 PM EDT [facility] Historical Provider POINT OF CARE TEST ORDE RABLES Final Result Performing Organization Address [facility] de Phone Number [facility] [address] [phone] * (ABNORMAL) TROPONIN I ULTRA ([facility]KR DATA CONV) (07/01/2019 4:51 AM EDT) Pathologist [facility] TroponinI Ultra 0.137(H) 0.015 - 0.045 ng/mL 07/01/2019 9:16 AM EDT Comment: Troponin Result (ng/ml) ?* Interpretation 0.015 ? 0.045 ?* ??Normal; less than 99th percentile of normal range >0.045 ? * Abnormal; greater than 99th percentile of normal range. ?? Test precision at 0.045 ng/ml is less than 10% Coefficient of Variation. Blood 07/01/2019 4:51 AM EDT 07/01/2019 9:03 AM EDT [facility] Historical Provider LAB BLOOD ORDERABLES Fi nal Result Performing Organization Address [facility] de Phone Number [facility] [address] [phone] * ESR SEDIMENTATION RATE AUTO ([facility]KR DATA CONV) (07/01/2019 4:51 AM EDT) Pathologist [facility] Sed Rate Auto 6 0 - 20 mm/Hr 07/01/2019 9:09 AM EDT Blood 07/01/2019 4:51 AM EDT 07/01/2019 8:56 AM EDT us [facility] Historical Provider LAB BLOOD ORDERABLES Fi nal Result [facility] [address] [phone] * (ABNORMAL) CMP COMPREHENSIVE METABOLIC PANEL ([facility]KR DATA CONV) (07/01/2019 12:50 AM EDT) Sodium Level 140 136 - 146 mmol/L 07/01/2019 5:19 AM EDT Potassium Level 4.3 3.5 - 5.1 mmol/L 07/01/2019 5:19 AM EDT Chloride Level 106 102 - 112 mmol/L 07/01/2019 5:19 AM EDT Carbon Dioxide Level 26 21 - 32 mmol/L 07/01/2019 5:19 AM EDT Anion Gap 12 9 - 20 07/01/2019 5:19 AM EDT Calcium Level 9.3 8.4 - 10.1 mg/dL 07/01/2019 5:19 AM EDT Glucose Level 186(H) 74 - 106 mg/dL 07/01/2019 5:19 AM EDT Comment: [employer] has become aware of sulfasalazine and sulfapyridine [...] Urea Nitrogen 20 7 - 22 mg/dL 07/01/2019 5:19 AM EDT Creatinine Level 1.30 0.70 - 1.30 mg/dL 07/01/2019 5:19 AM EDT Bun/Creatinine 15.4 8.0 - 20.0 07/01/2019 5:19 AM EDT Albumin Level 4.0 3.4 - 5.0 Gram/dL 07/01/2019 5:19 AM EDT Protein, Total 7.3 6.4 - 8.2 Gram/dL 07/01/2019 5:19 AM EDT A/G Ratio 1.2 1.1 - 2.5 07/01/2019 5:19 AM EDT Alk Phos 66 27 - 136 Units/Lit er 07/01/2019 5:19 AM EDT ALT 29 16 - 61 Units/Lit er 07/01/2019 5:19 AM EDT Comment: [employer] has become aware of sulfasalazine and sulfapyridine [...] prior to administration of the drug. AST 26 5 - 37 Units/Lit er 07/01/2019 5:19 AM EDT Comment: [employer] has become aware of sulfasalazine and sulfapyridine [...] to administration of the drug. Bilirubin, Total 1.1 0.2 - 1.2 mg/dL 07/01/2019 5:19 AM EDT Globulin 3.3 1.5 - 4.5 Gram/dL 07/01/2019 5:19 AM EDT eGFR >60 >=60 mL/min/1. 73m2 07/01/2019 5:19 AM EDT Comment: GFR <60 suggests chronic kidney disease, if found over 3 month period. GFR <15 indicates renal failure. eGFR NonAfrican 53(L) >=60 mL/min/1. 73m2 07/01/2019 5:19 AM EDT Comment: GFR <60 suggests chronic kidney disease, if found over 3 month period. GFR <15 indicates renal failure. Blood 07/01/2019 12:5 0 AM EDT 07/01/2019 5:04 AM EDT [facility] Historical Provider LAB BLOOD ORDERABLES Fi nal Result [facility] [address] [phone] documented in this encounter Visit Diagnoses Not on filedocumented in this encounter
--- OUTSIDE RECORDS SUMMARY | 2024-07-21 17:17 | XMS_ITS | Encounter Summary ---
Author Organization [facility] In iatives Address [address] [place] [address] Care Team Providers Care Thread Clipper Name Role Phone Allyson Avery APRN Primary Care Provider + [phone] Encounter Details Date Type Department Care Team (Late st Contact Info) Description 07/01/2019 Transcribed Document [facility] [place] [address] [place] [address] ProviderTatiana MD [address] [place] [address] Social History Tobacco Use Types Packs/Day Years Used Date Smoking Tobacco: Never Assessed Sex and Gender Information Value Date Recorded Sex Assigned at Not on file Legal Sex Male 5:33 PM CDT Gender Identity Not on file Sexual Orientation Not on file documented as of this encounter Miscellaneous Notes * Cerner Conversion Note - Historical ProviderMD - 07/01/2019 10:36 AM CDT Discharge Summary, PT Entered On: 07/01/2019 10:37 EDT Performed On: 07/01/2019 10:36 EDT by ABRAHAM BUSTOS PT Discharge Summary Discharge Summary Provider Notified : Nursing, Physical Therapy, Occupational Therapy Reason for Discharge : Other: EVAL ONLY Discharge Summary Comment, PT : no skilled PTx needs noted at eval pt's son present and will amb with pt ABRAHAM BUSTOS PT - 07/01/2019 10:36 EDT Electronically signed by Angel [facility] Conversion Electrical Engineer Mep Cerner at 12/20/2022 12:24 PM CDT documented in this encounter Plan of Treatment Not on file documented as of this encounter Visit Diagnoses Not on filedocumented in this encounter Care Teams Thread Clipper Relationship Specialty Start Date End Date Allyson Avery, RACEBOOK WRITER [address] [address] PCP - General Nurse Practitioner 02/06/23 documented as of this encounter
--- OUTSIDE RECORDS SUMMARY | 2024-07-21 17:17 | XMS_ITS | Encounter Summary ---
Author Organization [facility] In iatives Address [address] [place] [address] Care Team Providers Care Pediatric Dentist Name Role Phone Allyson Avery APRN Primary Care Provider + [phone] Encounter Details Date Type Department Care Team (Late st Contact Info) Description 07/01/2019 Transcribed Document [facility] [place] [address] [place] [address] ProviderTatiana MD [address] [place] [id number] Social History Tobacco Use Types Packs/Day Years Used Date Smoking Tobacco: Never Assessed Sex and Gender Information Value Date Recorded Sex Assigned at Not on file Legal Sex Male 5:33 PM CDT Gender Identity Not on file Sexual Orientation Not on file documented as of this encounter Miscellaneous Notes * Cerner Conversion Note - Historical ProviderMD - 07/01/2019 3:18 AM CDT DATE OF ADMISSION: 07/01/2019 PRIMARY CARE: Allyson Avery APRN, [place], [place]. REFERRING PHSYCIAN: Dr. Baljinder Joseph, [facility] , 1940. CURRENT COMPLAINT: Chest pain, sweating. 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 He has a history of coronary artery disease status post coronary artery bypass grafting nearly 25 years ago. He has undergone percutaneous intervention multiple times since then, the last time being about [address] Silva, I believe. At that time, he had evidence of multivessel disease, evidence of MONROY to LAD with disease in the LAD beyond the touchdown site. One of three bypass grafts was occluded, that bring the SVG to RCA, and SVG to obtuse marginal was patent with prior stent and MONROY to LAD was patent. He underwent intervention to the MONROY to the LAD. An MRI compatible dual-chamber pacemaker was placed because of symptomatic bradycardia. Since then he has really done well. He has been maintained on medications noted below, and remains quite active. 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 He does get breathless on walking uphill. He does not have predictable exertional chest pain. This evening, he went to bed and he awoke sweaty with substernal chest pressure without radiation. He had no nausea. These symptoms mimic those that he had when he had a myocardial infarction nearly over 20 years. He took a nitroglycerin, which eased his symptoms a lot. That worried him because he was certain then that these symptoms were from coronary disease and so he came to [place] for evaluation. He entered the emergency room at approximately 12:30 a.m. On entry, blood pressure was 140/60, pulse 73, temperature 98, oxygen saturation 96% on room air. His examination was generally unremarkable. His rhythm was sinus. LABORATORY TESTING: Revealed a random glucose 196. Electrolytes otherwise normal. BUN 20, creatinine 1.3. His albumin level was 4. 0. His white count was 11.2, hematocrit 40%, platelet count 189,000. Troponin level was 0.153 and proBNP \ was 379. 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 Chest x-ray suggested left atrial enlargement, relatively clear lungs, sternotomy wires, left subclavicular pacemaker on a single AP film. He is pain free. He is admitted now for further evaluation and therapy. His usual medications include, by his description, allopurinol 100 mg a day, amlodipine 5 mg a day, aspirin 81 mg a day, clopidogrel 75 mg a day, coenzyme Q, fish oil, glucosamine, Metanx multivitamin supplements. lsinopril 20 mg a day, Synthroid 0.075 mg per day, Ranexa 500 mg once in the morning, Crestor 20 mg each evening, Welchol 625 three tablets per day and Nexium 40 mg a day. Of note, the Welchol and Ranexa doses are different than noted in his [facility] MAR. ALLERGIES: None. TOBACCO USE: None. ALCOHOL USE: None. OTHER HEALTH PROBLEMS: Include, idiopathic hypothyroidism, hyperlipidemia, history of nephrolithiasis, poor dentition and hearing loss. CHILDHOOD ILLNESSES: No rheumatic fever, diphtheria, tuberculosis, polio or jaundice. SURGICAL HISTORY: As noted above. FAMILY HISTORY: Hypertension, diabetes. SOCIAL HISTORY: Born and reared in [facility], finished high school. He did not attend college. 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 and son have some form of cirrhosis. He has 3 children and 6 grandchildren and great grandchildren. REVIEW OF SYSTEMS: Weight is stable. Denies fevers or chills. 14-point review of systems is otherwise unremarkable. He is independent in ADLs and IADLs. PHYSICAL EXAMINATION: GENERAL: He is alert and oriented. He has a full fund of knowledge. Speech is fluent. VITAL SIGNS: Blood pressure is 145/60 in both arms, pulse 70, respirations 18. Oxygen saturation 94% on room air. EYES: Nonicteric. Oropharynx, poor dentition. NECK: Supple. No JVD. No bruits. Thyroid normal. THORAX: Reveals minimal kyphosis. Air entry is symmetric. LUNGS: Clear. Anterior chest reveals a median sternotomy scar, left subclavicular pacemaker battery. PMI is normal position. HEART: S1, S2 are normal. An S4 is present. ABDOMEN: Soft without bruit. EXTREMITIES: Unremarkable. He has adequate pulses. No ischemic changes. There is no edema. I do not detect adenopathy. NEUROLOGIC: Seems symmetric. IMPRESSION: Chest pain syndrome. I think this is most likely a symptom of unstable angina pectoris. He is without symptoms at this time. He does have a minimally abnormal troponin. I do not know if this is chronic or not. He is known to have coronary artery disease. He is known to have LV dysfunction with EF of about 35% to 40% when last measured, I believe. He is currently in sinus rhythm without evidence of acute injury pattern. Other problems as noted above. Recommend gallbladder ultrasound. Trend troponin level. Further testing and medication modification following evaluation by Dr. Feldman or his associates. /[id number] Eleazar Nate Capellan MD MGE/AQ / MGE / MODL CC1: Ms Tanisha Avery [place], [place] CC2: Dr. Heath Feldman Electronically signed by [facility], [facility] Conversion Lawn Mower Operator Cerner at 12/20/2022 12:25 PM CDT documented in this encounter Plan of Treatment Not on file documented as of this encounter Visit Diagnoses Not on filedocumented in this encounter Care Teams Pediatric Dentist Relationship Specialty Start Date End Date Allyson Avery APRN [address] [phone] PCP - General Nurse Practitioner 02/06/23 documented as of this encounter
--- OUTSIDE RECORDS SUMMARY | 2024-07-21 17:17 | XMS_ITS | Encounter Summary ---
Author Organization [facility] In iatives Address [address] [place] [address] Care Team Providers Care Sewing Machine Assembler Name Role Phone Bennie Allyson BABCOCK Primary Care Provider + [phone] Encounter Details Date Type Department Care Team (Late st Contact Info) Description 07/01/2019 Transcribed Document [facility] [place] [address] [place] [address] ProviderTatiana MD [address] [place] [address] [id number] Social History Tobacco Use Types Packs/Day Years Used Date Smoking Tobacco: Never Assessed Sex and Gender Information Value Date Recorded Sex Assigned at Not on file Legal Sex Male 5:33 PM CDT Gender Identity Not on file Sexual Orientation Not on file documented as of this encounter Miscellaneous Notes * Cerner Conversion Note - Tatiana ProviderMD - 07/01/2019 3:26 AM CDT Admission History, Adult Entered On: 07/01/2019 3:39 EDT Performed On: 07/01/2019 3:26 EDT by Sixto Shelton RN Advance Directive Patient has Advance Directive *Q : No, patient refuses Advance Directive information Sixto Shelton RN - 07/01/2019 3:26 EDT Anesthesia/Transfusion History Family History of Anesthesia Reaction : No prior transfusion(s) Blood Transfusion Acceptable to Patient : Yes Transfusion History : Prior anesthesia without reaction Family History of Anesthesia Reaction : None Sixot Shelton RN - 07/01/2019 3:26 EDT Functional Assessment Living Situation : Home Patient Lives With : Adult Child/Children, Spouse Persons Assisting Patient at Home : Child/Children, Spouse Mobility Assistance Prior to Admission : Independent VELEZ Hx Falls Immediate/Within 3 Months : No Current Home Treatments : Blood glucose monitoring Sixto Shelton RN - 07/01/2019 3:26 EDT General Info Mode of Arrival on Unit : Stretcher Patient Arrival Date/Time : 07/01/2019 3:15 EDT Legal Guardian : Son Legal Guardian : No Support Person/Patient Pattern Ruler : Yes Support Person/Pt Rep Name : Perlita Fitzgerald Contact Password : Melissa Support Person/Pt Rep Contact Information : [phone] Want Family/Rep/Phys Notified of Admit : No Emergency Contact #1 : Jake Nikolai Emergency Contact #1 Emergency Contact #1 Relationship : Son Emergency Contact #2 : Merle Nikolai Emergency Contact #2 Emergency Contact #2 Relationship : Chief Complaint : patient with complaints of chest pain that started around 2200, states NTG x1 and had relief of pain. Information Obtained From : Patient Primary Language : [place] Preferred Communication Mode : Verbal Communication Barrier : None Sixto Shelton RN - 07/01/2019 3:26 EDT Fall Risk Scales ABCs Fall Injury Risk Identification : Age, Coagulation ABC Fall Injury Risk : Moderate to high injury risk Injury Moderate to High Risk Interventions : Fall contract/letter per facility policy, Patient room close to nurses station, Specialty low bed, Transport methods appropriate to patient, Visual cues in place VELEZ Hx Falls Immediate/Within 3 Months : No Velez Secondary Diagnosis : Yes VELEZ Use of Ambulatory Aid : Bed rest/Nurse assist VELEZ IV Therapy or IV Access : Yes Kandice Gait/Transferring : Normal, bedrest, immobile Velez Mental Status : Oriented to own ability Velez Fall Risk Score : 35 VELEZ Fall Scale Risk Level : 25-45 Medium Risk [place] Fall Interventions : Adequate lighting, Assistive devices within reach, Bed in low position, Call device within reach, Fall prevention handout/education per facility policy, Hourly comfort/safety rounds, Non-slip footwear, Personal items within reach, Reinforced to call for assistance before getting out of bed, Room free of clutter/spills, Upper side-rails up, Wheels locked, Wires/Cords secured Fall Moderate to High Risk Interventions : Fall contract/letter per facility policy, Patient room close to nurses station, Transport methods appropriate to patient, Visual cues in place Fall Risk Scale Calc Temp : 0 Sixto Shelton RN - 07/01/2019 3:26 EDT Health Histories Smoking Status : Never (less than 100 in lifetime; none in last 30 days) Smokeless Tobacco Status : Never Sixto Shelton RN - 07/01/2019 3:26 EDT Social History (As Of: 07/01/2019 03:39:32 EDT) Tobacco: Use in Last 12 Months: No. Smoking Status Never smoker. Second Hand Smoke Exposure: No. Tobacco Use/Smoking within Last 30 Days No. (Last Updated: 12/28/2015 05:03:08 EDT by Sara Mcdonald, Silvio) Never (less than 100 in lifetime) Smoking [...] Updated: 12/28/2015 05:00:33 EDT by Sara Mcdonald, Rn) Home/Environment: Lives with Spouse. Living situation: Home/Independent. [...] Source : Stated Height Entry Format : [place] Height, Feet : 5 ft(Converted to: 152 cm, 60 Inch) Height, Inches : 9 Inch(Converted to: 0 ft 9 Inch, 22.86 cm) Clinical Height : 175.26 cm Weight Source : Stated [place] Body Weight : 70 kg Sixto Shelton RN - 07/01/2019 3:26 EDT Estimated Weight Type of Weight Measurement Est : [place] Weight, est lb : 182 lb(Converted to: 83 kg) Estimated Clinical Dosing Weight : 82.73 kg Sixto Shelton RN - 07/01/2019 3:26 EDT Infectious Disease History Infectious Disease History : Influenza Active Surveillance Screen Assessment : Patient does not meet any of above criteria Active Surveillance Screen Negative : Yes Fever/Chills Last 48 Hours : No Travel To Regions with Travel Advisories : No Travel Outside [place] Within Last 30 Days : No Contact With Traveler to Advisory Region : No Tuberculosis Symptoms : None Sixto Shelton RN - 07/01/2019 3:26 EDT Tetanus Immunization Status Previous Tetanus Immunizations : No qualifying data available. Tetanus Immunization : Greater than 5 years Sixto Shelton RN - 07/01/2019 3:26 EDT Influenza Vaccine Asmt, Adult Previous Vaccines from Immunization Schedule : No qualifying data available. Influenza Immunization, Current Season : Yes Influenza Immunization Date : 06/02/2019 EDT Sixto Shelton RN - 07/01/2019 3:26 EDT Pneumococcal Vaccine Previous Vaccines from Immunization Schedule : No qualifying data available. Pneumonia Immunization Received : No Pneumococcal Risk Assessment < Age 65 : N/A- Patient 65 years of age or older Pneumococcal Vaccine Contraindications : No contraindications to pneumococcal vaccine Transplant Workup/Recent Transplant : No Order for Pneumococcal Vaccine : Declined Vaccination Sixto Shelton RN - 07/01/2019 3:26 EDT Order Details Transport Mode Order Detail : Wheelchair Isolation Precautions Order Detail : Standard Precautions Order Detail : N/A IV Order Detail : 1 Oxygen Order Detail : 0 Nurse Collect Order Detail : 0 Lift/Transfer : Minimal Central Line Order Detail : No Room Service : Not Appropriate Arterial Line : No Sixto Shelton RN - 07/01/2019 3:26 EDT Nutrition History Feeding Ability : Independent Adaptive Feeding Equipment : None Adaptive Feeding Equipment : Regular, Mechanical soft Oral Medication Administration : By mouth Eating Poorly Due to Decreased Appetite : No Unplanned Weight Loss in Past 3-6 Months : No Malnutrition Screening Tool Total(mal) : 0 Malnutrition Screening Tool Risk Level : Patient not at risk Sixto Shelton RN - 07/01/2019 3:26 EDT Psychosocial History Does Someone Depend on You for Care? : No Chronic/Terminal Illness w/Freq Visits : No Do You Have a History of the Following? : Patient denies history Currently in Unsafe Situation : No Restraining Order Against Another Person : No Do You Have a Support System? : Yes Who is Your Support System? : family Tried to Harm Yourself in the Past? : No Thoughts of Harming/Killing Yourself : No Sixto Shelton RN - 07/01/2019 3:26 EDT Sleep Apnea Risk Assmt Hx of [...] Sleep Apnea Risk Level Score : 4 Sixto Shelton RN - 07/01/2019 3:26 EDT Spiritual/Cultural Needs Any Spiritual/Cultural Needs or Requests : No Orthodox Preference : [employer]ian[employer] Sixto Shelton RN - 07/01/2019 3:26 EDT Valuables and Belongings Valuables and Belongings : Clothing Clothing : Common streetwear Clothing Disposition : Bedside Sixto Shelton RN - 07/01/2019 3:26 EDT documented in this encounter Plan of Treatment Not on file documented as of this encounter Visit Diagnoses Not on filedocumented in this encounter Care Teams Sewing Machine Assembler Relationship Specialty Start Date End Date Allyson Avery, YOKO [address] [place] [address] [place] [phone] PCP - General Nurse Practitioner 02/06/23 documented as of this encounter
--- OUTSIDE RECORDS SUMMARY | 2024-07-21 17:17 | XMS_ITS | Encounter Summary ---
Author Organization [facility] Address [address] [place] [address] Care Team Providers Care Mental Health Associate Name Role Phone Bennie Allyson YOKO Primary Care Provider + [phone] Encounter Details Date Type Department Care Team (Late st Contact Info) Description 07/01/2019 Transcribed Document [facility] [place] Medicine [address] [place] [id number] ProviderTatiana MD [address] [place] [id number] Social History Tobacco Use Types Packs/Day Years Used Date Smoking Tobacco: Never Assessed Sex and Gender Information Value Date Recorded Sex Assigned at Not on file Legal Sex Male 5:33 PM CDT Gender Identity Not on file Sexual Orientation Not on file documented as of this encounter Miscellaneous Notes * Cerner Conversion Note - Historical ProviderMD - 07/01/2019 3:29 AM CDT Evaluation, Occupational Therapy Entered On: 07/01/2019 13:34 EDT Performed On: 07/01/2019 9:08 EDT by PAYTON GONZALEZ OTR/Belia General Information, OT Therapy Diagnosis, OT : Decreased ind in ADL and functional mobility Onset of Problem, OT : 07/01/2019 EDT Co-treated by, OT : Physical Therapist General Information Comment, OT : Chest pain. PAYTON GONZALEZ OTR/Belia - 07/01/2019 14:28 EDT Visit Type, OT : Initial evaluation PAYTON GONZALEZ OTR/Belia - 07/01/2019 13:34 EDT Patient Orders : Order Date Order Ordering 07/01/2019 03:29 OT Evaluation and Treatment Ordered By: ROMAN NGUYEN MD-INT Active Diagnoses : 07/01/2019 12:00 Abnormal levels of other serum enzymes 07/01/2019 12:00 Chest pain 07/01/2019 12:00 Chest pain, unspecified Admission Date : 07/01/2019 01:59 Personal Devices : Personal Devices No Devices Recorded Assistive Devices : Assistive Devices No Devices Recorded PAYTON GONZALEZ OTR/Belia - 07/01/2019 14:28 EDT General Status Patient Received Status : Supine in bed Treatment Start Time : 07/01/2019 8:48 EDT Patient Left Status : Up in chair, RN/PCT informed, Family/Visitors at bedside, All needs met and within reach RN/PCT Informed Comment : KHRIS kyleed evaluation. Treatment End Time : 07/01/2019 9:08 EDT Treatment Time : 20 Minute(s) PAYTON GONZALEZ OTR/Belia - 07/01/2019 14:28 EDT History and Environment, OT Living Situation, Therapy : Home Patient Lives With : Adult Child/Children, Spouse Persons Assisting Patient at Home : Child/Children, Spouse Professional Skilled Services : None Persons Providing Information : Patient, Child/Children Home Equipment, Therapy : Shower Equipment Home Setup : Two story Bedroom Location : Main level Bathroom #1 Location : Main level Bathroom #1 Features : Toilet, Tub/Shower Stairs : Yes Stair Location(s) : Inside, Outside Inside Stairs, Number of Steps : 14 Stairs Inside Comment : son lives on second floor, pt does NOT go up those stairs Outside Stairs, Number of Steps : 1 Ramp : No PAYTON GONZALEZ OTR/Belia - 07/01/2019 14:28 EDT Prior LOF Bathing, OT : Independent Prior LOF Bed Mobility : Independent Prior LOF Upper Body Dressing, OT : Independent Prior LOF Lower Body Dressing, OT : Independent Prior LOF Toileting : Independent Prior LOF Transfer : Independent Prior LOF Grooming, OT : Independent Prior LOF for IADLs, OT : Independent PAYTON GONZALEZ OTR/Belia - 07/01/2019 14:28 EDT Upper Extremity Upper Extremity Dominance : Right Right UE Active ROM : WFL Left UE Active ROM : WFL PAYTON GONZALEZ OTR/Belia - 07/01/2019 14:28 EDT Self Care/Home Management, OT Self Feeding Assist Level, OT : Supervision or set-up Grooming Assist Level, OT : Independent, modified Bathing Assist Level, OT : Assist, minimal Upper Body Dressing Assist Level, OT : Independent, complete Lower Body Dressing Assist Level, OT : Assist, minimal Toileting Assist Level : Assist, minimal Toilet Transfer Assist Level : Supervision or set-up Toilet Transfer Device : Belt, gait PAYTON GONZALEZ OTR/Belia 07/01/2019 14:28 EDT Cognition Assessment, OT Orientation : Oriented x 4 PAYTON GONZALEZ OTR/Belia - 07/01/2019 14:28 EDT Indication Assessment, OT Occupational Therapy Indicated : Yes Problem List, OT : Impaired, bed mobility, Impaired, activities daily living, Impaired, endurance tolerance, Impaired functional mobility, Impaired, sitting balance, Impaired, standing balance, Impaired, strength, Impaired, transfers Potential Barriers, OT : Acuity of illness Rehabilitation Potential, OT : Good PAYTON GONZALEZ OTR/Belia 07/01/2019 14:28 EDT Plan of Care, OT OT Tx Plan/Goals Established w Patient : Yes OT Frequency Rehab : Five days per week OT Duration Rehab : Fourteen days OT Treatments Planned : Activities of daily living, Balance training, Functional mobility training, Pain management, Safety education, Therapeutic activities PAYTON GONZALEZ OTR/Belia 07/01/2019 14:28 EDT Grain Scooper Goals, OT Dressing, Lower Body LTG Grid Goal #1 Activity : Dressing, Lower Body Assist : Independent, complete Date to Meet : 07/15/2019 EST Goal Status : Initial goal PAYTON GONZALEZ OTR/Belia 07/01/2019 14:28 EDT Toilet Transfer LTG Grid Goal #1 Activity : Toilet Transfer, Ambulatory Assist : Independent, complete Date to Meet : 07/15/2019 EST Goal Status : Initial goal PAYTON GONZALEZ OTR/Belia 07/01/2019 14:28 EDT Bed Mobility/ Bed Transfer LTG Grid Goal #1 Activity : Bed Mobility/Bed Transfer Assist : Independent, complete Date to Meet : 07/15/2019 EST Goal Status : Initial goal PAYTON GONZALEZ OTR/Belia 07/01/2019 14:28 EDT Treatment Note Subjective Comment : Pt agreeable. Patient's Response to Treatment : Pt tolerated well. Additional Objective Information : Pt supine in bed and transfered to EOB. Pt participated in OT evaluation. Pt donned socks with close supervision to pt stating his balance is off and having difficulty donning LB clothing. Pt ambualted with gait belt and close supervision. Pt ambulating at a slow pace. 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 Assessment : Pt will benefit from continued skilled OT services. Plan for Treatment : See LTG PAYTON GONZALEZ OTR/Belia - 07/01/2019 14:28 EDT Pain Assessment Pain Scaled Used : 0-10 Pain scale Pain Score Pre-Intervention : 0 PAYTON GONZALEZ OTR/Belia - 07/01/2019 14:28 EDT Image 1 - Images currently included in the form version of this document have not been included in the text rendition version of the form. [employer] OT Charges OT Selfcare/Hm Mgmt Ea 15 Min : 1 OT Eval Low Complexity : 1 PAYTON GONZALEZ OTR/Belia - 07/01/2019 14:28 EDT documented in this encounter Plan of Treatment Not on file documented as of this encounter Visit Diagnoses Not on filedocumented in this encounter Care Teams Mental Health Associate Relationship Specialty Start Date End Date Allyson Avery APRN [address] [phone] PCP - General Nurse Practitioner 02/06/23 documented as of this encounter
--- OUTSIDE RECORDS SUMMARY | 2024-07-21 17:17 | XMS_ITS | Clinical Summary ---
Author Organization [facility] Address [address] [place] [address] Care Team Providers Care Supervisor [employer] Name Role Phone BennieAllyson YOKO Primary Care Provider [phone] Allergies No known active allergies Medications fish oil-omega-3 fatty acids 1000 MG capsule Take 2,400 mg by mouth twice a day. Active allopurinol (Zyloprim) 100 MG tablet 07/03/2022 Active aspirin 81 MG EC tablet Take 1 tablet (81 mg) by mouth 1 (one) time each day. Active carvedilol (Coreg) 25 MG tablet 07/19/2022 Active co-enzyme Q-10 30 MG capsule Take 400 mg by mouth 1 (one) time each day. Active B Complex Vitamins (VITAMIN B COMPLEX PO) Take by mouth 1 (one) time each day. Active colesevelam (Welchol) 625 MG tablet 05/30/2022 Active levothyroxine (Synthroid, Levoxyl) 75 MCG tablet Take 1 tablet (75 mcg) by mouth 1 (one) time each day. Active lisinopril 20 MG tablet 06/25/2022 Active multivitamin (Theragran) tablet Take 1 tablet by mouth twice a day. Active rosuvastatin (Crestor) 40 MG tablet 07/19/2022 Active ranolazine (Ranexa) 500 MG 12 hr tablet 05/23/2022 Active L-ARGININE PO Take 1 tablet by mouth 1 (one) time each day. Active Methylsulfonylme marcelino 1000 MG capsule Take 1,000 mg by mouth twice a day. Active docusate calcium (Surfak) 240 MG capsule Take 300 mg by mouth 1 (one) time each day. Active clopidogrel (Plavix) 75 MG tablet Take 1 tablet (75 mg) by mouth 1 (one) time each day. 08/08/2021 Active amiodarone (Pacerone) 200 MG tablet Take 1 tablet (200 mg) by mouth 1 (one) time each day. Active ferrous sulfate 325 (65 Fe) MG tablet Take 1 tablet (325 mg) by mouth 1 (one) time each day with breakfast. Active memantine (Namenda) 5 MG tablet Take 1 tablet (5 mg) by mouth twice a day. 60 tablet 11 07/22/2023 Active Active Problems Problem Noted Date Diagnosed Date Arthritis 07/30/2023 07/30/2023 Dermatophytosis of nail 07/30/2023 07/30/20 Generalized edema 07/30/2023 07/30/2023 Gout 07/30/2023 07/30/2023 Ischemic cardiomyopathy 07/30/2023 07/30/20 23 Overview (07/30/2023): ?? 03/16/20 Upgrade of his dual-chamber pacemaker to [facility] dual-chamber ICD Venous reflux 07/30/2023 07/30/2023 Chronic systolic congestive heart failure 202107/30/2023 Overview (07/30/2023): 06/29/21 Echo: LVEF 36-40%, grade II diastolic dysfunction, moderate MR, moderately reduced RVSF Hypothyroidism (acquired) 03/15/20212022 Cardiac pacemaker in situ 08/02/20172022 Sick sinus syndrome 07/05/2017 07/30/2023 Overview (07/30/2023): ?? 03/16/20 Upgrade of his dual-chamber pacemaker to [facility] dual-chamber ICD Essential hypertension 01/16/2016 Peripheral arterial disease 07/15/201507/04 Overview (07/30/2023): 06/26/21: Stress PET: Medium sized infarct in inferior wall with no significant ischemia, LVEF 36% 10/12/16 LHC: Significant stenosis in the SVG to OM2/3 treated with EMANUEL. Moderate lesion distal to the MONROY to the LAD 50-70% by Dr. Silva @ [facility] 12/09/14 LHC: 1/3 grafts occluded, BMS to SVG to OM2/OM3. EF 35-40% Failed attempt at PCI to OM1 distribution due to tortuosity and heavy calcification. BMS to proximal LAD. 04/29/07 CABG: MONROY to LAD, SVG to D1 & OM2, SVG to RCA. 02/06/23 BLE AD multi. Hyperlipidemia 07/15/2015 07/30/2023 Family History Medical History Relation Name Comments Diabetes Daughter Hypertension Father Hypertension Mother Cataracts Son Diabetes Son Relation Name Status Comments Daughter Alive Father Mother Son Alive Social History Tobacco Use Types Packs/Day Years Used Date Smoking Tobacco: Never Smokeless Tobacco: Never Tobacco Cessation:Counseling Given: Not Answered Sex and Gender Information Value Date Recorded Sex Assigned at Not on file Legal Sex Male 8:55 PM EDT Gender Identity Not on file Sexual Orientation Not on file Plan of Treatment Upcoming Encounters Date Type Department Care Team (Late st Contact Info) Description 08/05/2024 1:45 PM EST Office Visit [facility] [address] [place] [address] Heath Kaplan MD [address] [phone] Health Maintenance Due Date Last Done Comments [facility]-Depression Screening 1940 [facility]-Medicare Annual Wellness (AWV) 1940 [facility]-/Child/Adol SDOH Screenings 1940 [facility]-Pneumococcal Vaccine: 65+ Years (1 of 2 - PCV) 1945 05/22/2016 [facility]- SDOH Screenings 1957 [facility]-Adult SDOH Screenings 1957 [facility]-Zoster Vaccines (1 of 2) 1989 [facility]-RSV Vaccine: 60+ Years or (1 - 1-dose 75+ series) 2014 [facility]-DTaP,Tdap,and Td Vaccines (1 - Tdap) 04/19/2022 04/18/2022 [id number] Vaccine (4 - 2023- season) 2024 10/02/2021, 12/02/2020, 11/03/2020 [facility]-Influenza Vaccine (#1) 2024 06/25/2023 [facility]-HIB Vaccines Aged Out No longer e ligible based on patient's age to complete this topic [facility]-HPV Vaccines Aged Out No longer e ligible based on patient's age to complete this topic [facility]-Hepatitis A Vaccines Aged Out No longer eligible based on patient's age to complete this topic [facility]-IPV Vaccines Aged Out No longer e ligible based on patient's age to complete this topic [facility]-Rotavirus Vaccines Aged Out No lo nger eligible based on patient's age to complete this [place] [address] [facility] Care Teams Supervisor [employer] Relationship Specialty Start Date End Date Allyson Avery APRN [address] [place] [address] PCP - General 01/13/21
--- OUTSIDE RECORDS SUMMARY | 2024-07-21 17:17 | XMS_ITS | Encounter Summary ---
Author Organization [facility] Address [address] [place] [address] Care Team Providers Care Finish Production Manager Name Role Phone Unavailable Primary Care Provider Unavaillulu e Encounter Details Date Type Department Care Team (Late st Contact Info) Description 07/01/2019 Historic Encounter [address] [phone] ProviderCasey Historical Social History Tobacco [...] Procedure Name Priority Date/Time Associated Diagnosis Comments AUTOMATED DIFFERENTIAL ([facility] DATA CONV) Routine 07/02/2019 6:20 AM EDT GLUCOSE-POC Routine 07/01/2019 3:39 PM EDT GLUCOSE-POC Routine 07/01/2019 10:46 AM EDT TSH Routine 07/01/2019 4:51 AM EDT URINALYSIS UA RFLX MICROSCOPIC CULT IF IND ([facility] BKR DATA CONV) Routine 07/01/2019 4:35 AM EDT URINALYSIS MICROSCOPIC ([facility] DATA CONV) Routine 07/01/2019 4:35 AM EDT GLUCOSE-POC Routine 07/01/2019 3:24 AM EDT RBC MORPHOLOGY Routine 07/01/2019 12:50 AM EDT documented in this encounter Results * (ABNORMAL) AUTOMATED DIFFERENTIAL ([facility] BKR DATA CONV) (07/02/2019 6:20 AM EDT) Neut% 82.7(H) 34.0 - 71.0 % 07/02/2019 10:51 AM EDT Lymph% 10.8(L) 19.3 - 53.1 % 07/02/2019 10:51 AM EDT Stevens% 3.9 3.0 - 9.0 % 07/02/2019 10:51 AM EDT Eos% 1.9 0.0 - 7.0 % 07/02/2019 10:51 AM EDT Baso% 0.4 0.0 - 1.5 % 07/02/2019 10:51 AM EDT IG% 0.30 0.00 - 0.60 % 07/02/2019 10:51 AM EDT Neut# 7.57(H) 1.56 - 6.13 K/uL 07/02/2019 10:51 AM EDT Lymph# 0.99(L) 1.00 - 3.90 x10(3)/uL 07/02/2019 10:51 AM EDT Stevens# 0.36 0.16 - 1.00 K/uL 07/02/2019 10:51 AM EDT Eos# 0.17 0.00 - 0.80 x10(3)/uL 07/02/2019 10:51 AM EDT Baso# 0.04 0.00 - 0.20 x10(3)/uL 07/02/2019 10:51 AM EDT IG# 0.03 0.00 - 0.05 x10(3)/uL 07/02/2019 10:51 AM EDT Blood 07/02/2019 6:20 AM EDT 07/02/2019 10:45 AM EDT Narrative [facility] - 07/02/2019 10:53 AM EDT Added by Discern Expert [facility] Historical Provider LAB BLOOD ORDERABLES Fi nal Result [facility] [address] [place] [address], [facility] [phone] * (ABNORMAL) Glucose, Point of Care (07/01/2019 3:39 PM EDT) Glucose POC2 194(H) 70 - 110 mg/dL 07/01/2019 7:39 PM EDT [facility] Epidemiologist [id number] 07/01/2019 7:39 PM EDT [facility] Device SN [id number] 07/01/2019 7:39 PM EDT [facility] Device Comment1 Notified Nurse RBV 07/01/2019 7:39 PM EDT [facility] Blood 07/01/2019 3:39 PM EDT 07/01/2019 7:46 PM EDT us Sle Historical Provider POINT OF CARE TEST ORDE RABLES Final Result Performing Organization Address City/[facility]/ZIP Co de Phone Number [facility] [address] [phone] * (ABNORMAL) Glucose, Point of Care (07/01/2019 10:46 AM EDT) Glucose POC2 151(H) 70 - 110 mg/dL 07/01/2019 2:46 PM EDT [facility] Epidemiologist [id number] 07/01/2019 2:46 PM EDT [facility] Device SN [id number] 07/01/2019 2:46 PM EDT [facility] Device Comment1 Notified Nurse RBV 07/01/2019 2:46 PM EDT [facility] Blood 07/01/2019 10:4 6 AM EDT 07/01/2019 2:50 PM EDT us Sleh Historical Provider POINT OF CARE TEST ORDE RABLES Final Result [facility] [address] [phone] * TSH (07/01/2019 4:51 AM EDT) [facility] TSH 0.512 0.358 - 3.740 mcInt Units/mL 07/01/2019 2:00 PM EDT Blood 07/01/2019 4:51 AM EDT 07/01/2019 1:07 PM EDT [facility] Provider LAB BLOOD ORDERABLES Fi nal Result Performing Organization Address City/[facility]/ZIP Co de Phone Number [facility] [address] [phone] * (ABNORMAL) URINALYSIS MICROSCOPIC ([facility] BKR DATA CONV) (07/01/2019 4:35 AM EDT) [facility] Correlate UA Correlated Correlated 07/01/2019 9:14 AM EDT Ur RBC 0-2(A) /HPF 07/01/2019 9:14 AM EDT Ur WBC 0-2 /HPF 07/01/2019 9:14 AM EDT Ur Mucous Trace(A) 07/01/2019 9:14 AM EDT 07/01/2019 4:35 AM EDT 07/01/2019 8:43 AM EDT Narrative [facility] - 07/01/2019 9:14 AM EDT Added by Discern Expert [facility] Provider URINE ORDERABLES Final Result Performing Organization Address [facility] Co de Phone Number [facility] [address] [phone] * (ABNORMAL) URINALYSIS UA RFLX MICROSCOPIC CULT IF IND ([facility] BKR DATA CONV) (07/01/2019 4:35 AM EDT) [facility] Urine Type. U CleanCatch 07/01/2019 8:43 AM EDT Urine Color [place] 07/01/2019 8:47 AM EDT Comment: Substances that cause HIGHLY abnormal urine color may affect the accuracy of URINE CHEMISTRY reagent strip results due to colorimetric interference. ??These include visible levels of blood or bilirubin, drugs containing dyes, and some antibiotics such as nitrofurantoin and riboflavin which can cause markedly abnormal urine coloration. Urine Appearance Clear 07/01/20 8:47 AM EDT Urine Specific [place] 1.024 1.005 - 1.030 07/01/2019 8:47 AM EDT Urine pH Dipstick 5.5(L) 6.0 - 8.0 07/01/2019 8:47 AM EDT Urine Leukocyte Esterase Negative Negative 07/01/2019 8:47 AM EDT Urine Nitrite Negative Negative 07/01/2019 8:47 AM EDT Urine Protein Dipstick Negative Negative 07/01/2019 8:47 AM EDT Comment:Use of urine preserv atives may elevate protein results and reduce bilirubin, blood and nitrite results. Urine Glucose Dipstick Negative Negative 07/01/2019 8:47 AM EDT Urine Ketones Dipstick 15(A) Negative 07/01/2019 8:47 AM EDT Urine Urobilinogen Dipstick 0.2 EU/dL 07/01/2019 8:47 AM EDT Urine Bilirubin Dipstick Small(A) Negative 07/01/2019 8:47 AM EDT Urine Blood Dipstick Negative Negative 07/01/2019 8:47 AM EDT 07/01/2019 4:35 AM EDT 07/01/2019 8:43 AM EDT [facility] Historical Provider URINE ORDERABLES Final Result Performing Organization Address [facility]/State/ZIP Co de Phone Number [facility] [address] [phone] * (ABNORMAL) Glucose, Point of Care (07/01/2019 3:24 AM EDT) Glucose POC2 174(H) 70 - 110 mg/dL 07/01/2019 7:24 AM EDT [facility] Epidemiologist [id number] 07/01/2019 7:24 AM EDT [facility] Device SN [id number] 07/01/2019 7:24 AM EDT [facility] Device Comment1 Notified Nurse RBV 07/01/2019 7:24 AM EDT [facility] Blood 07/01/2019 3:24 AM EDT 07/01/2019 7:30 AM EDT [facility] Historical Provider POINT OF CARE TEST ORDE IRVING Final Result Performing Organization Address [facility]/ZIP Co de Phone Number [facility] [address] [phone] * Smear morphology (07/01/2019 12:50 AM EDT) RBC Morphology Normal 07/01/2019 5:[address] Estimate Adequate Adequate 07/01/2019 5:25 AM EDT Blood 07/01/2019 12:5 0 AM EDT 07/01/2019 4:55 AM EDT Narrative [facility] - 07/01/2019 5:25 AM EDT Ordered By Discern Expert Rule [facility] Historical Provider LAB BLOOD ORDERABLES Fi nal Result Performing Organization Address [facility]/ZIP Co de Phone Number [facility] [address] [phone] documented in this encounter Visit Diagnoses Not on filedocumented in this encounter
--- OUTSIDE RECORDS SUMMARY | 2024-07-21 17:17 | XMS_ITS | Encounter Summary ---
Author Organization [facility] Address [address] [place] [address] Care Team Providers Care Hair Colorist Name Role Phone Unavailable Primary Care Provider Unavaillulu e Encounter Details Date Type Department Care Team (Late st Contact Info) Description 07/01/2019 Historic Encounter [address] [phone] [facility] Historical Social History Tobacco Use Types [...] Procedure Name Priority Date/Time Associated Diagnosis Comments CBC W/ AUTO DIFF ([facility] DATA CONV) Routine 07/02/2019 6:20 AM EDT CULTURE, BLOOD ([facility] BKR DATA CONV) Routine 07/01/2019 4:51 AM EDT TROPONIN I ULTRA ([facility] BKR DATA CONV) Routine 07/01/2019 12:50 AM EDT documented in this encounter Results * (ABNORMAL) CBC W/ AUTO DIFF ([facility] BKR DATA CONV) (07/02/2019 6:20 AM EDT) WBC 9.2 3.6 - 9.5 K/uL 07/02/2019 10:51 AM EDT RBC 3.92(L) 4.20 - 5.70 Million/uL 07/02/2019 10:51 AM EDT Hgb 13.0(L) 13.5 - 17.3 g/dL 07/02/2019 10:51 AM EDT Hct 38.6(L) 40.1 - 51.0 % 07/02/2019 10:51 AM EDT MCV 98.5(H) 79.0 - 94.8 fL 07/02/2019 10:51 AM EDT MCH 33.2(H) 25.6 - 32.2 pg 07/02/2019 10:51 AM EDT MCHC 33.7 32.2 - 36.5 Gram/dL 07/02/2019 10:51 AM EDT RDW 12.1 11.7 - 14.9 % 07/02/2019 10:51 AM EDT Platelet Count 170 163 - 369 K/uL 07/02/2019 10:51 AM EDT MPV 9.8 9.4 - 12.4 fL 07/02/2019 10:51 AM EDT Slide Review No 07/02/2019 10:53 AM EDT Blood 07/02/2019 6:20 AM EDT 07/02/2019 10:45 AM EDT [facility] Historical Provider LAB BLOOD ORDERABLES Fi nal Result Performing Organization Address [facility]/ZIP Co de Phone Number [facility] [address] [place] [address] * CULTURE, BLOOD ([facility] BK DATA CONV) (07/01/2019 4:51 AM EDT) Final No growth at 5 days. Final Pre No growth at 4 days. Pre Pre No growth at 3 days. Pre Pre No growth at 2 days. Pre Pre No growth at 1 day. Pre Pre Culture less than 24 Hrs old Pre Blood 07/01/2019 4:51 AM EDT 07/01/2019 8:55 AM EDT [facility] Historical Provider LAB BLOOD ORDERABLES Fi nal Result Performing Organization Address [facility]/ZIP Co de Phone Number [facility] [address] [phone] * (ABNORMAL) TROPONIN I ULTRA ([facility] BKR DATA CONV) (07/01/2019 12:50 AM EDT) TroponinI Ultra 0.153(H) 0.015 - 0.045 ng/mL 07/01/2019 5:19 AM EDT Comment: Troponin Result (ng/ml) ?* Interpretation 0.015 ? 0.045 ?* ??Normal; less than 99th percentile of normal range >0.045 ? * Abnormal; greater than 99th percentile of normal range. ?? Test precision at 0.045 ng/ml is less than 10% Coefficient of Variation. Blood 07/01/2019 12:5 0 AM EDT 07/01/2019 5:04 AM EDT [facility] Historical Provider LAB BLOOD ORDERABLES Fi nal Result [facility] [address] [place] [address], [facility] [phone] documented in this encounter Visit Diagnoses Not on filedocumented in this encounter
--- OUTSIDE RECORDS SUMMARY | 2024-07-21 17:17 | XMS_ITS | Encounter Summary ---
Author Organization [facility] In [facility] Address [address] [place] [address] Care Team Providers Care Curb Setter Name Role Phone Allyson Avery APRN Primary Care Provider + [phone] Encounter Details Date Type Department Care Team (Late st Contact Info) Description 07/02/2019 Transcribed Document [facility] Family Medicine [address] [place] [address] ProviderTatiana MD [address] [place] [address] Social History Tobacco Use Types Packs/Day Years Used Date Smoking Tobacco: Never Assessed Sex and Gender Information Value Date Recorded Sex Assigned at Not on file Legal Sex Male 5:33 PM CDT Gender Identity Not on file Sexual Orientation Not on file documented as of this encounter Miscellaneous Notes * Tayo Conversion Note - Historical ProviderMD - 07/02/2019 5:00 AM CDT Chart Check - Review Order Profile Entered On: 07/02/2019 4:13 EDT Performed On: 07/02/2019 5:00 EDT by Michela Joseph, RN Chart Check Powerplans Initiated/Discontinued as Appropriate : Yes All Active Orders Reviewed : Yes Michela Joseph RN - 07/02/2019 4:13 EDT documented in this encounter Plan of Treatment Not on file documented as of this encounter Visit Diagnoses Not on filedocumented in this encounter Care Teams Curb Setter Relationship Specialty Start Date End Date Allyson Avery APRN [address] [place] [address] PCP - General Nurse Practitioner 02/06/23 documented as of this encounter
--- OUTSIDE RECORDS SUMMARY | 2024-07-21 17:17 | XMS_ITS | Encounter Summary ---
Author Organization [facility] In iatives Address [address] [place] [address] Care Team Providers Care Labor Employment Associate Name Role Phone Bennie Allyson BABCOCK Primary Care Provider + [phone] Encounter Details Date Type Department Care Team (Late st Contact Info) Description 07/01/2019 Transcribed Document [facility] Family Medicine [address] [place] [address] ProviderTatiana MD [address] [place] [address] [id number] Social History Tobacco Use Types Packs/Day Years Used Date Smoking Tobacco: Never Assessed Sex and Gender Information Value Date Recorded Sex Assigned at Not on file Legal Sex Male 5:33 PM CDT Gender Identity Not on file Sexual Orientation Not on file documented as of this encounter Miscellaneous Notes * Cerner Conversion Note - Tatiana Polanco MD - 07/01/2019 8:28 AM CDT Patient: PAT MENCHACA Age: 78 Years Sex: Male : 1940 Chief Complaint patient with complaints of chest pain that started around 2200, states NTG x1 and had relief of pain. PCP: Allyson Ayon Cardiology: MD Francia CAD/CP History of Present Illness The patient is a 78 year old gentleman with a past medical history of coronary artery disease s/p CABG, hypertension, hyperlipidemia, sick sinus syndrome s/p Medtronic PPM implant. Cardiac cath 12/09/2014 revealed 1/3 grafts occluded [...] MONROY anastomosis to the LAD, 50-70% severity. The patient presents to the emergency department last evening with complaint of diffuse chest pain that started around 10 PM. 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 He developed diaphoresis, sharp chest discomfort radiating across his chest with associated nausea and vomiting. He states he did have associated lower abdominal cramping. He took one subinguinal nitroglycerin with relief of his symptoms. The patient was concerned due to his diaphoresis as this was a precipitating symptom of his cardiac events in the past, however, he states his pain was different. He denies exertional fatigue, shortness of breath, palpitations, edema. 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 He denies prior events and his energy level has been good. Initial labs: troponin 0.137/0.153, wbc 11.2, K 4.3, crea 1.3, BUN 20. EKG NSR with 1st degree AV block with right bundle block, QT/QTc 390/421. The patient was admitted to medicine services for further evaluation. Cardiology has been consulted in light. Temp overnight 101.5. Review of systems 14 point review of systems obtained, negative except mentioned above Physical Exam Vitals & Measurements T: 37.3 ??C TMIN: 36.7 ??C TMAX: 38.6 ??C HR: 70(Monitored) RR: 16 BP: 112/57 SpO2: 92% HT: 175.26 cm WT: 78.8 kg BMI: 25.65 General: [Alert and oriented, well nourished, no acute distress, son at bedside]. Neurologic: [Awake, alert, and oriented X3, CN II-XII intact]. Eye: [PERRL, EOMI, normal conjuctiva]. HENT: [Normocephalic, normal hearing, moist oral mucosa, no scleral icterus, poor dentition]. Neck: [Supple, non-tender, no carotid bruits, no JVD]. Lungs: [Clear to auscultation and percussion, non-labored respiration]. Heart: [Normal rate, regular rhythm, no murmur, gallop or edema]. Abdomen: [Soft, non-tender, non-distended, normal bowel sounds]. Musculoskeletal: [Normal range of motion and strength]. Skin: [Skin is warm, dry and pink, no rashes]. Psychiatric: [Cooperative, appropriate mood and affect]. Assessment/Plan Chest pain with estevez zone troponin prn nitroglycerin, morphine echocardiogram to rule out wall motion abnormalities, LV failure dapt- aspirin, plavix continue ranexa, statin, apt add low dose bb pt scheduled for US GB today CAD with history of prior CABG Cardiac [...] LAD, 50-70% severity. SSS s/p Medtronic PPM interrogate device to rule out underlying arrhythmia HTN well controlled on current regimen HLP statin Hypothyroidism check tsh Further recommendations pending results of echocardiogram Thank you for this consultation We will continue to follow Please call with CV questions/concerns Problem List/Past Medical [...] CABG (1996). Allergies No Known Allergies Medications acetaminophen, 650 mg= 2 Tab, Oral, Q6H, PRN allopurinol, 100 mg= 1 Tab, Oral, Daily allopurinol 100 mg oral tablet, 100 mg= 1 Tab, Oral, Daily amLODIPine, 5 mg= 1 Tab, Oral, Daily amLODIPine 5 mg oral tablet, 5 mg= 1 Tab, Oral, Daily Aspirin Low Dose 81 mg oral tablet, 1 Tab, Oral, Daily Cebria Memory Support Capsule, 1 Cap, Oral, Daily Coenzyme Q10 200 mg oral capsule, 2 Cap, Oral, Daily Colace 100 mg oral capsule, 400 mg= 4 Cap, Oral, At Bedtime Crestor, 40 mg= 1 Tab, Oral, Saturday Crestor 20 mg oral tablet, 40 mg= 2 Tab, Oral, Saturday Fish Oil 1200 mg oral capsule, 2400 mg= 2 Cap, Oral, BID heparin, 5000 Units= 1 mL, SubCutaneous, Q8H insulin lispro sliding scale, Scale C:, SubCutaneous, AC and at Bedtime levothyroxine, 75 mcg= 1 Tab, Oral, Daily levothyroxine 75 mcg (0.075 mg) oral tablet, 75 mcg= 1 Tab, Oral, Daily lisinopril, 20 mg= 1 Tab, Oral, Daily lisinopril 20 mg oral tablet, 20 mg= 1 Tab, Oral, Daily Metanx oral capsule, 1 Cap, Oral, BID Multiple Vitamins oral tablet, 1 Tab, Oral, Daily NexIUM, 40 mg, Oral, Daily NexIUM 40 mg oral delayed release capsule, 40 mg= 1 Cap, Oral, Daily nitroglycerin injection 25 mg + D5W Premix Diluent for Drip 250 mL Nitrostat, 0.4 mg= 1 Tab, SubLINgual, Q5Min, PRN Osteo Bi-Flex Plus MSM, 1 Tab, Oral, BID Plavix, 75 mg= 1 Tab, Oral, Daily Plavix, 75 mg, Oral, Daily Protonix, 40 mg= 1 Tab, Oral, Daily Ranexa, 500 mg= 1 Tab, Oral, Daily Ranexa 500 mg oral tablet, extended release, 500 mg= 1 Tab, Oral, Daily Welchol, 1250 mg= 2 Tab, Oral, At Bedtime Welchol, 625 mg= 1 Tab, Oral, QAM Welchol 625 mg oral tablet, 1250 mg= 2 Tab, Oral, At Bedtime Welchol 625 mg oral tablet, 625 mg= 1 Tab, Oral, QAM Zofran, 4 mg= 2 mL, IV Push, Q4H, PRN Family History dm, htn, heart disease, cva [...] Tobacco Use/Smoking within Last 30 Days No. 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 Code Status / Living Will Resuscitation Status - Ordered -- Start: 07/01/19 3:29:00 EDT, Full Code, Continuous Order Labs Results JUL 01 00:50 \ 14.0 / H 11.2 189 / 40.7 \ Cardiac Labs Cardiology Labs Lipids Cardiac Markers Cholesterol HDL: 51 mg/dL (07/01/19 04:51:00) ProBNP: 379 pg/mL (07/01/19 00:50:00) Cholesterol LDL Calculation: 84.2 mg/dL (07/01/19 04:51:00) Troponin I Ultra: 0.137 ng/mL High (07/01/19 04:51:00) Cholesterol Tot: 144 mg/dL (07/01/19 04:51:00) Cholesterol VLDL Calculation: 8.8 mg/dL (07/01/19 04:51:00) Cholesterol/HDL Ratio: 2.8 (07/01/19 04:51:00) LDL/HDL Ratio: 1.7 (07/01/19 04:51:00) Triglyceride: 44 mg/dL (07/01/19 04:51:00) Diagnostics EKG NSR with 1st degree AV block, Right bundle block Echo pending Electronically signed by [facility], [facility] Conversion Divemaster Cerner at 12/20/2022 12:28 PM CDT documented in this encounter Plan of Treatment Not on file documented as of this encounter Visit Diagnoses Not on filedocumented in this encounter Care Teams Labor Employment Associate Relationship Specialty Start Date End Date Allyson Avery APRN [address] [place] [address] [place] [id number] PCP - General Nurse Practitioner 02/06/23 documented as of this encounter
--- OUTSIDE RECORDS SUMMARY | 2024-07-21 17:17 | XMS_ITS | Encounter Summary ---
Author Organization [employer] [facility] [employer] Address [address] [place] [address] Care Team Providers Care Software Applications Specialist Name Role Phone Unavailable Primary Care Provider Unavailabl e Encounter Details Date Type Department Care Team (Late st Contact Info) Description 07/01/2019 Historic Encounter [facility] Radiology [address] [place] [address] Yoan Pandey MD [facility] [place] [address] Social History Tobacco Use Types Packs/Day Years [...] Procedure Name Priority Date/Time Associated Diagnosis Comments CULTURE, BLOOD ([facility] BK DATA CONV) Routine 07/01/2019 4:51 AM EDT XR CHEST 1 VIEW PORTABLE / BEDSIDE STAT 07/01/2019 1:50 AM EDT documented in this encounter Results * CULTURE, BLOOD ([facility] BKR DATA CONV) (07/01/2019 4:51 AM EDT) Final No growth at 5 days. Final Pre No growth at 4 days. Pre Pre No growth at 3 days. Pre Pre No growth at 2 days. Pre Pre No growth at 1 day. Pre Pre Culture less than 24 Hrs old Pre Blood 07/01/2019 4:51 AM EDT 07/01/2019 8:55 AM EDT Sle Historical Provider LAB BLOOD ORDERABLES Fi nal Result [facility] [address] [place] [address], [facility] [phone] * XR chest 1 view portable / bedside (07/01/2019 1:50 AM EDT) Anatomical Region Laterality Modality X-Ray 07/01/2019 1:50 AM EDT Narrative 07/01/2019 2:19 PM EDT CHEST SINGLE VIEW COMPARISON: Chest from 26 June 2017. HISTORY: Chest pain. FINDINGS: Cardiac silhouette is mildly enlarged. Multiple median sternotomy wires are present. Left subclavian double lead pacemaker is present. Lungs are clear. IMPRESSION: 1. No acute infiltrate. Procedure Note Yoan Pandey MD - 12/18/2022 CHEST SINGLE VIEW COMPARISON: Chest from 26 June 2017. HISTORY: Chest pain. FINDINGS: Cardiac silhouette is mildly enlarged. Multiple median sternotomy wires are present. Left subclavian double lead pacemaker is present. Lungs are clear. IMPRESSION: 1. No acute infiltrate. Yoan Pandey MD IMG DIAGNOSTIC IMAGING ORDERAB LES Final Result documented in this encounter Visit Diagnoses Not on filedocumented in this encounter
--- OUTSIDE RECORDS SUMMARY | 2024-07-21 17:17 | XMS_ITS | Encounter Summary ---
Author Organization [facility] Address [address] [place] [address] Care Team Providers Care .Net Architect Name Role Phone Allyson Avery APRN Primary Care Provider [phone] Encounter Details Date Type Department Care Team (Latest Contact Info) Description 07/20/2022 Travel Social History Tobacco Use Types Packs/Day Years Used Date Smoking Tobacco: Never Smokeless Tobacco: Never Sex and Gender Information Value Date Recorded Sex Assigned at Not on file Legal Sex Male 8:55 PM EDT Gender Identity Not on file Sexual Orientation Not on file COVID-19 Exposure Response Date Recorded In the last 10 days, have yo u been in contact with someone who was confirmed or suspected to have Coronavirus/COVID-19? No / Unsure 07/20/2022 1:36 PM EST documented as of this encounter Plan of Treatment Upcoming Encounters Date Type Department Care Team (Late st Contact Info) Description 08/05/2024 1:45 PM EST Office Visit [facility] [address] [place] [address] Heath Kaplan MD [address] [address] documented as of this encounter Visit Diagnoses Not on filedocumented in this encounter Additional Health Concerns Assessment Noted Time A fall risk assessment has been complete d for the patient 07/20/2022 2:32 PM EST documented as of this encounter Care Teams .Net Architect Relationship Specialty Start Date End Date Allyson Avery APRN [address] [place] [address] PCP - General 01/13/21 documented as of this encounter
--- OUTSIDE RECORDS SUMMARY | 2024-07-21 17:17 | XMS_ITS | Encounter Summary ---
Author Organization [facility] Address [address] [place] [address] Care Team Providers Care Substation Mechanic Name Role Phone Allyson Avery AIR CONDITIONING TECHNICIAN Primary Care Provider [phone] Encounter Details Date Type Department Care Team (Late st Contact Info) Description 07/30/2023 2:30 PM EST Office Visit [facility] [address] [place] [address] Heath Kaplan MD [address] [address] Cataract, nuclear sclerotic senile, right (Primary Dx); Cataract, nuclear sclerotic senile, left; Myopia of both eyes; Regular astigmatism of both eyes; Presbyopia of both eyes Social History Tobacco Use Types Packs/Day Years Used Date Smoking Tobacco: Never Smokeless Tobacco: Never Sex and Gender Information Value Date Recorded Sex Assigned at Not on file Legal Sex Male 8:55 PM EDT Gender Identity Not on file Sexual Orientation Not on file documented as of this encounter Miscellaneous Notes * Progress Notes - Heath Kaplan MD - 07/30/2023 2:30 PM EST Subjective HPI 82 year old male presents 1 year follow up Cataract, nuclear sclerotic senile both eyes. Patient reports no changes in vision since last visit. Patient reports no floaters or flashes of light in botheyes. Patient reports no new issues since last visit. Notes no visual changes--ok w/ specs but will take new sopec Rx Last edited by Heath Kaplan MD on 07/30/2023 3:30 PM. ROS Negative for: Constitutional, Gastrointestinal, Neurological, Skin, Genitourinary, Musculoskeletal,HENT, Endocrine, Cardiovascular, Eyes, Respiratory, Psychiatric, Allergic/Imm, Heme/Lymph Last edited by Wendi Escobar on 07/30/2023 2:24 PM. Objective Base Eye Exam Visual Acuity (Snellen - Linear) Right Left Dist cc 20/20 -2 20/25 -3 Tonometry (Tonopen, 3:03 PM) Right Left Pressure 17 18 Pupils Pupils APD Right PERRL None Left PERRL None Visual Holguin Right Left Full Full Extraocular Movement Right Left Full, Ortho Full, Ortho Neuro/Psych Oriented x3: Yes Mood/Affect: Normal Dilation Both eyes: 1% Tropicamide, 2.5% Phenylephrine @ 3:04 PM Additional Tests Glare Testing (ARx) Medium Right 20/40-1 Left 20/50-2 Slit Lamp and Fundus Exam External Exam Right Left External Normal Normal Slit Lamp Exam Right Left Lids/Lashes Normal for age Normal for age Conjunctiva/Sclera Normal Normal Cornea Clear and compact Clear and compact Anterior Chamber Deep and quiet Deep and quiet Iris Normal pupil size and shape Normal pupil size and shape Lens 1+ns 1+ns Vitreous Normal Normal Fundus Exam Right Left Disc No edema; no vascularization; good color (Jose 78 d Lens) No edema; no vascularization; good color (Jose 78 d Lens) C/D Ratio 0.3 0.3 Macula Normal reflex; without edema Normal reflex; without edema Vessels Perfused; no tortuosity or abnormality Perfused; no tortuosity or abnormality Periphery Attached; no retinal or choroidal lesions Attached; no retinal or choroidal lesions Refraction Wearing Rx Sphere Cylinder [place] Add Right -2.50 +2.00 176 +2.50 Left -1.50 +0.75 013 +2.50 Type: Bifocal Manifest Refraction (Auto) Sphere Cylinder [place] Dist VA Add Right -3.25 +1.50 165 20/25-2 Left -1.50 +1.00 175 20/30-2 Manifest Refraction #2 Sphere Cylinder Heyworth Dist VA Add Right -2.25 +1.50 165 20/25+2 +2.50 Left -2.00 +0.75 030 20/25 +2.50 Final Rx Sphere Cylinder Heyworth Dist VA Add Right -2.25 +1.50 165 20/25+2 +2.50 Left -2.00 +0.75 030 20/25 +2.50 Expiration Date: 07/30/2024 Assessment/Plan Diagnoses and all orders for this visit: Cataract, nuclear sclerotic senile, right Cataract, nuclear sclerotic senile, left 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 Discussed cataract signs/symptoms Disp spec Rx Rtc 1 yr ar/gl/mr/dfe ou documented in this encounter Plan of Treatment Upcoming Encounters Date Type Department Care Team (Late st Contact Info) Description 08/05/2024 1:45 PM EST Office Visit [facility] [address] [place] [address] Heath Kaplan MD [address] [address] documented as of this encounter Visit Diagnoses Diagnosis Cataract, nuclear sclerotic senile, right- Primary Cataract, nuclear sclerotic senile, left 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
--- OUTSIDE RECORDS SUMMARY | 2024-07-21 17:17 | XMS_ITS | Encounter Summary ---
Author Organization [facility] [employer] Address [address] [place] [address] Care Team Providers Care Allocation Analyst Name Role Phone Avery Allyson YOKO Primary Care Provider + [phone] Encounter Details Date Type Department Care Team (Late st Contact Info) Description 07/02/2019 Transcribed Document [facility] [place] Family Medicine [address] [place] [address] ProviderTatiana MD [address] [place] [address] Social History Tobacco Use Types Packs/Day Years Used Date Smoking Tobacco: Never Assessed Sex and Gender Information Value Date Recorded Sex Assigned at Not on file Legal Sex Male 5:33 PM CDT Gender Identity Not on file Sexual Orientation Not on file documented as of this encounter Miscellaneous Notes * Cerner Conversion Note - Tatiana ProviderMD - 07/02/2019 12:49 PM CDT Final Discharge Planning Entered On: 07/02/2019 13:45 EDT Performed On: 07/02/2019 12:49 EDT by ALMA COSTA RN-Care Management Final Discharge Planning Discharge Arrangements : Patient Post-Acute Information Patient Name: PAT HERBERT Gender: Male : [birth year] Age: 78 Years No Post-Acute Placement(s) Listed No Post-Acute Service(s) Listed No Curaspan Referral(s) Listed Important Medicare Message Reviewed With : Patient Important Medicare Message Reviewed D/T : 07/02/2019 12:49 EDT Transportation Needs : Family/Friend Is Patient High/Moderate Readmission Risk? : No Patient/Family Notified of Plan : Yes Is Patient Ready for Discharge? : Yes Physician Notified Patient is Ready for Discharge? : Yes Discharge To Care Management : Home/Residential/Usp or Self Care - ALMA COSTA RN-Care Management - 07/02/2019 12:49 EDT Electronically signed by [facility], [facility] Conversion Roofing Technician Cerner at 12/20/2022 12:34 PM CDT documented in this encounter Plan of Treatment Not on file documented as of this encounter Visit Diagnoses Not on filedocumented in this encounter Care Teams Allocation Analyst Relationship Specialty Start Date End Date Allyson Avery, YOKO [address] [address] PCP - General Nurse Practitioner 02/06/23 documented as of this encounter
--- OUTSIDE RECORDS SUMMARY | 2024-07-21 17:17 | XMS_ITS | Encounter Summary ---
Author Organization [employer] Address [address] [place] [address] Care Team Providers Care Rental Car Ferry Driver Name Role Phone Allyson Avery YOKO Primary Care Provider + [phone] Encounter Details Date Type Department Care Team (Late st Contact Info) Description 07/01/2019 Transcribed Document [facility] [address] [place] [address] Jf Gallagher MD [address] [place] [address] [address] [place] [address] Social History Tobacco Use Types Packs/Day Years Used Date Smoking Tobacco: Never Assessed Sex and Gender Information Value Date Recorded Sex Assigned at Not on file Legal Sex Male 5:33 PM CDT Gender Identity Not on file Sexual Orientation Not on file documented as of this encounter Miscellaneous Notes * Cerner Conversion Note - Jf Gallagher MD - 07/01/2019 10:59 AM EDT Patient: PAT MENCHACA Age: 78 years Sex: Male : 1940 Associated Diagnoses: None Author: JF GALLAGHER MD-INT Subjective PCP: [facility] DOA: 07/01/2019 DOD: HPI: Patient admitted with chest pain, elevated troponin and 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 CODE STATUS: Full code CONSULTS: [facility] cardiology WORKUP / PROCEDURES: HOSPITAL FOLLOWUP: 07/01/2019 Patient was admitted this morning by Dr. Capellan. Chart reviewed. H&P reviewed. Discussed with the patient in the presence of his son. Cardiology Consult reviewed. Health Status Allergies: Allergic Reactions (Selected) No Known Allergies Current medications: (Selected) Inpatient Medications Ordered Crestor: 40 mg, Oral, Saturday Nitrostat: 0.4 mg, SubLINgual, Q5Min, PRN: Chest Pain Plavix: 75 mg, Oral, Daily Protonix: 40 mg, Oral, Daily Ranexa: 500 mg, Oral, Daily Welchol: 1,250 mg, Oral, At Bedtime Welchol: 625 mg, Oral, QAM Zofran: 4 mg, IV Push, Q4H, PRN: Nausea acetaminophen: 650 mg, Oral, Q6H, PRN: Fever allopurinol: 100 mg, Oral, Daily amLODIPine: 5 mg, Oral, Daily heparin: 5,000 Units, SubCutaneous, [...] 24 hrs) Last Charted Minimum Maximum Temp 99.2 (JUL 01 06:15) 98.7 (JUL 01 03:15) H 101.5 (JUL 01 04:02) Mon HR 67 (JUL 01 09:30) 67 (JUL 01 09:30) 72 (JUL 01 03:15) Periph HR 73 (JUL 01 00:29) 73 (JUL 01 00:29) 73 (JUL 01 00:29) Resp Rate 16 (JUL 01 06:15) 14 (JUL 01 03:15) H 21 (JUL 01 02:00) SBP 131 (JUL 01 09:30) 112 (JUL 01 06:15) H 148 (JUL 01 02:00) DBP 71 (JUL 01 09:30) L 52 (JUL 01 03:24) 73 (JUL 01 03:15) MAP 86 (JUL 01:30) 67 (JUL 01 03:24) 88 (JUL 01 02:00) SpO2 L 92 (JUL 01 06:15) L 92 (JUL 01 03:15) 96 (JUL 01 00:29) Results Review Radiology Results (Last 48 hours) [id number] -- 07/01/2019 01:59 CR Chest 1 Vw Portable (07/01/2019 00:50) Result: CHEST SINGLE VIEWCOMPARISON: Chest from 26 June 2017.HISTORY: Chest pain.FINDINGS: Cardiac silhouette is mildly enlarged. Multiple mediansternotomy wires are present. Left subclavian double lead pacemaker ispresent.Lungs are clear.IMPRESSION:1. No acute infiltrate. JUL 01 00:50 140 106 20 / H 186 4.3 26 1.30 \ JUL 01 00:50 \ 14.0 / H 11.2 189 / 40.7 \ Impression and Plan Assessment and Plan: Diagnosis. DIAGNOSIS: Chest pain with elevated troponin, likely non-ST elevation [place]. History of coronary artery disease and CABG Sick sinus syndrome and history of permanent pacemaker Essential hypertension Hyper lipidemia Hyperuricemia PLAN Continue current treatment. Home medications reviewed and reconciled. Cardiology input appreciated and follow-up instructions. Monitor baseline labs. documented in this encounter Plan of Treatment Not on file documented as of this encounter Visit Diagnoses Not on filedocumented in this encounter Care Teams Rental Car Ferry Driver Relationship Specialty Start Date End Date Allyson Avery, OPTOMETRIC AIDE [address] [address] PCP - General Nurse Practitioner 02/06/23 documented as of this encounter
--- OUTSIDE RECORDS SUMMARY | 2024-07-21 17:17 | XMS_ITS | Encounter Summary ---
Author Organization [facility] In iatives Address [address] [place] [address] Care Team Providers Care Clay Artist Name Role Phone Bennie Allyson YOKO Primary Care Provider + [phone] Encounter Details Date Type Department Care Team (Late st Contact Info) Description 07/02/2019 Transcribed Document [facility] [place] [place] Family Medicine [address] [place] [address] ProviderTatiana MD [address] [place] [id number] Social History Tobacco Use Types Packs/Day Years Used Date Smoking Tobacco: Never Assessed Sex and Gender Information Value Date Recorded Sex Assigned at Not on file Legal Sex Male 5:33 PM CDT Gender Identity Not on file Sexual Orientation Not on file documented as of this encounter Miscellaneous Notes * Cerner Conversion Note - Tatiana Polanco MD - 07/02/2019 10:36 AM CDT Patient Education Materials Follows: Acute Coronary Syndrome Acute coronary syndrome (ACS) [...] to eat less sodium. Medicines ??? Take [id number] and prescription medicines only as told by [...] of beer, 5 oz of wine, or 1? oz of hard liquor. ??? Maintain a [...] right away. Call your local emergency services (681 in the [place] Do not drive yourself to the hospital.? If you ever feel like you may hurt yourself or others, or have thoughts about taking your own life, get help right away. You can go to your nearest emergency department or call: ??? Emergency services (361 in the [place] ??? A suicide crisis [...] 08/19/2006 Document Revised: 04/29/2018 Document Reviewed: 04/29/2018 ElseSupponor Interactive Patient Education ? 2019 TE2. documented in this encounter Plan of Treatment Not on file documented as of this encounter Visit Diagnoses Not on filedocumented in this encounter Care Teams Clay Artist Relationship Specialty Start Date End Date Allyson Avery, YOKO [address] [facility] [address] [place] [address] PCP - General Nurse Practitioner 02/06/23 documented as of this encounter
--- OUTSIDE RECORDS SUMMARY | 2024-07-21 17:17 | XMS_ITS | Encounter Summary ---
Author Organization Healthcare Address [address] [place] [address] Care Team Providers Care Kayaking Instructor Name Role Phone Allyson Avery YOKO Primary Care Provider [phone] Reason for Visit * Reason Comments Cataract Encounter Details Date Type Department Care Team (Late st Contact Info) Description 07/20/2022 2:15 PM EST Office Visit [facility] [address] [place] [address] Heath Kaplan MD [address] [address] Cataract, nuclear sclerotic senile, right (Primary Dx); Cataract, nuclear sclerotic senile, left; Insufficiency of tear film of both eyes Social History Tobacco Use [...] PM EST documented as of this encounter Miscellaneous Notes * Progress Notes - Heath Kaplan MD - 07/20/2022 2:15 PM EST Subjective Chief Complaint Cataract HPI Cataract Laterality: both eyes Associated symptoms: blurred vision and a need for brighter lights Severity: moderate Onset: gradual Duration: years Context: distance vision, mid-range vision, near vision, reading and dim lighting Course: gradually worsening Activities affected: reading, watching TV and daily activities Treatments tried: glasses Response to treatment: no improvement Comments 81 year old male patient states [place] and was told to have cataracts botheyes bad, states noticing vision seems blurry all the time and then noticing objects look like theyre moving around. Patient states a couple weeks ago woke up one morning and couldn't see at all, took a few blinks to be able to see again. C/o reduced quality of vision and dry eyes; concerned about cataracts ou; Fhx neg Last edited by Heath Kaplan MD on 07/20/2022 3:05 PM. ROS Negative for: Constitutional, Gastrointestinal, Neurological, Skin, Genitourinary, Musculoskeletal,HENT, Endocrine, Cardiovascular, Eyes, Respiratory, Psychiatric, Allergic/Imm, Heme/Lymph Last edited by Dorinda Blevins on 07/20/2022 2:31 PM. Objective Base Eye Exam Visual Acuity (Snellen - Linear) Right Left Dist cc 20/40 +2 20/40 +1 Dist ph cc 20/25 -1 20/25 Tonometry (Tonopen, 2:53 PM) Right Left Pressure 15 18 Pupils Pupils Right PERRL Left PERRL Visual Holguin Right Left Full Full Extraocular Movement Right Left Full Full Neuro/Psych Oriented x3: Yes Mood/Affect: Normal Dilation Both eyes: 1% Tropicamide, 2.5% Phenylephrine @ 2:54 PM Additional Tests Glare Testing (Transilluminator) Medium Right 20/30-2 Left 20/50 Slit Lamp and Fundus Exam External Exam Right Left External Normal Normal Slit Lamp Exam Right Left Lids/Lashes Normal for age Normal for age Conjunctiva/Sclera Normal Normal Cornea Clear and compact Clear and compact Anterior Chamber Deep and quiet Deep and quiet Iris Normal pupil size and shape Normal pupil size and shape Lens 1-2+ns 1-2+ns Vitreous Normal Normal Fundus Exam Right Left Disc No edema; no vascularization; good color (Ojse 78 d Lens) No edema; no vascularization; good color (Jose 78 d Lens) C/D Ratio 0.4 0.35 Macula Normal reflex; without edema Normal reflex; without edema Vessels Perfused; no tortuosity or abnormality Perfused; no tortuosity or abnormality Periphery Attached; no retinal or choroidal lesions Attached; no retinal or choroidal lesions Lacrimal Exam Dye Disappearance Right Left 6s 6s Refraction Wearing Rx Sphere Cylinder [place] Add Right -2.50 +2.00 176 +2.50 Left -1.50 +0.75 013 +2.50 Age: 9m Type: Bifocal Manifest Refraction (Auto) Sphere Cylinder [place] Dist [place] Right -3.00 +2.00 163 20/20-1 Left -1.25 +1.00 172 20/25-2 Patient defer Manifest refraction, current glasses are less than a year old. Assessment/Plan Diagnoses and all orders for this visit: Cataract, nuclear sclerotic senile, right Cataract, nuclear sclerotic senile, left Insufficiency of tear film of both eyes Discussed cataract signs/symptoms Ats qid/prn ou Rtc 1 yr ar/gl/mr/dfe ou documented in this encounter Plan of Treatment Upcoming Encounters Date Type Department Care Team (Late st Contact Info) Description 08/05/2024 1:45 PM EST Office Visit [facility] [address] [place] [address] Heath Kaplan MD [address] [address] documented as of this encounter Visit Diagnoses Diagnosis Cataract, nuclear sclerotic senile, right- Primary Cataract, nuclear sclerotic senile, left Insufficiency of tear film of both eyes documented in this encounter Additional Health Concerns Assessment Noted Time A fall risk assessment has been complete d for the patient 07/20/2022 2:32 PM EST documented as of this encounter Care Teams Kayaking Instructor Relationship Specialty Start Date End Date Allyson Avery APRN [address] [place], [place] [id number] PCP - General 01/13/21 documented as of this encounter
--- OUTSIDE RECORDS SUMMARY | 2024-07-21 17:17 | XMS_ITS | Encounter Summary ---
Author Organization [facility] In [facility]atives Address [address] [facility] [place] [address] Care Team Providers Care Restaurant Host Name Role Phone AveryAllyson la YOKO Primary Care Provider + [phone] Encounter Details Date Type Department Care Team (Late st Contact Info) Description 07/01/2019 Transcribed Document [facility] [place] Family Medicine [address] [place] [address] ProviderTatiana MD [address] [place] [phone] Social History Tobacco Use Types Packs/Day Years Used Date Smoking Tobacco: Never Assessed Sex and Gender Information Value Date Recorded Sex Assigned at Not on file Legal Sex Male 5:33 PM CDT Gender Identity Not on file Sexual Orientation Not on file documented as of this encounter Miscellaneous Notes * Cerner Conversion Note - Tatiana ProviderMD - 07/01/2019 7:00 AM CDT Consult Phone Call Documentation Entered On: 07/01/2019 8:23 EDT Performed On: 07/01/2019 7:00 EDT by Ashli Myers SWAN Phone Call for Consults Consult Phone Call/Page Attempt : First call Consult Reason : CAD,now UAP Physician Requesting Consult : ROMAN NGUYEN MD-INT Physician Requested for Consult : JADA HOLBROOK MD-CAR Date and Time Call Returned : 07/01/2019 8:22 EDT Non-Staff Physician Covering for Consult : JOSHUA CHAPMAN APRN Ayubu, Sara, SWAN - 07/01/2019 8:22 EDT documented in this encounter Plan of Treatment Not on file documented as of this encounter Visit Diagnoses Not on filedocumented in this encounter Care Teams Restaurant Host Relationship Specialty Start Date End Date Allyson Avery, YOKO [address] [phone] PCP - General Nurse Practitioner 02/06/23 documented as of this encounter
--- OUTSIDE RECORDS SUMMARY | 2024-07-21 17:17 | XMS_ITS | Encounter Summary ---
Author Organization [facility] In [facility]atives Address [address] [place] [address] Care Team Providers Care End User Support Specialist Name Role Phone Unavailable Primary Care Provider Gillian e Encounter Details Date Type Department Care Team (Late st Contact Info) Description 07/01/2019 Historic Encounter [address] [address] ProviderBelle Historical Social History Tobacco [...] Procedure Name Priority Date/Time Associated Diagnosis Comments BMP BASIC METABOLIC PANEL ([facility] DATA CONV) Routine 07/02/2019 6:20 AM EDT GLUCOSE-POC Routine 07/02/2019 5:37 AM EDT GLUCOSE-POC Routine 07/01/2019 9:07 PM EDT LIPID PANEL Routine 07/01/2019 4:51 AM EDT HEMOGLOBIN A1C Routine 07/01/2019 4:51 AM EDT CBC W/ AUTO DIFF ([facility] DATA CONV) Routine 07/01/2019 12:50 AM EDT documented in this encounter Results * (ABNORMAL) BMP BASIC METABOLIC PANEL ([facility] DATA CONV) (07/02/2019 6:20 AM EDT) Glucose Level 143(H) 74 - 106 mg/dL 07/02/2019 11:05 AM EDT Comment: [employer] has become aware of sulfasalazine and sulfapyridine [...] administration of the drug. Blood Urea Nitrogen 16 7 - 22 mg/dL 07/02/2019 11:05 AM EDT Creatinine Level 1.10 0.70 - 1.30 mg/dL 07/02/2019 11:05 AM EDT Sodium Level 136 136 - 146 mmol/L 07/02/2019 11:05 AM EDT Potassium Level 3.9 3.5 - 5.1 mmol/L 07/02/2019 11:05 AM EDT Chloride Level 105 102 - 112 mmol/L 07/02/2019 11:05 AM EDT Carbon Dioxide Level 24 21 - 32 mmol/L 07/02/2019 11:05 AM EDT Anion Gap 11 9 - 20 07/02/2019 11:05 AM EDT Calcium Level 9.1 8.4 - 10.1 mg/dL 07/02/2019 11:05 AM EDT Bun/Creatinine 14.5 8.0 - 20.0 07/02/2019 11:05 AM EDT eGFR NonAfrican >60 >=60 mL/min/1. 73m2 07/02/2019 11:05 AM EDT Comment: GFR <60 suggests chronic kidney disease, if found over 3 month period. GFR <15 indicates renal failure. eGFR >60 >=60 mL/min/1. 73m2 07/02/2019 11:05 AM EDT Comment: GFR <60 suggests chronic kidney disease, if found over 3 month period. GFR <15 indicates renal failure. Blood 07/02/2019 6:20 AM EDT 07/02/2019 10:46 AM EDT us [facility]le[facility] Historical Provider LAB BLOOD ORDERABLES Fi nal Result [facility] [address] [phone] * (ABNORMAL) Glucose, Point of Care (07/02/2019 5:37 AM EDT) Glucose POC2 127(H) 70 - 110 mg/dL 07/02/2019 9:37 AM EDT [facility] Health Plan Advisor [phone] 07/02/2019 9:37 AM EDT [facility] Device SN [id number] 07/02/2019 9:37 AM EDT [facility] Device Comment1 Notified Nurse RBV 07/02/2019 9:37 AM EDT [facility] Blood 07/02/2019 5:37 AM EDT 07/02/2019 9:41 AM EDT Result [facility] Provider POINT OF CARE TEST ORDE RABLES Final Result Performing Organization Address City/[facility]/ZIP Co de Phone Number [facility] [address] [phone] * (ABNORMAL) Glucose, Point of Care (07/01/2019 9:07 PM EDT) Glucose POC2 118(H) 70 - 110 mg/dL 07/02/2019 1:07 AM EDT [facility] Health Plan Advisor [phone] 07/02/2019 1:07 AM EDT [facility] Device SN [id number] 07/02/2019 1:07 AM EDT [facility] Device Comment1 Notified Nurse RBV 07/02/2019 1:07 AM EDT [facility] Blood 07/01/2019 9:07 PM EDT 07/02/2019 1:11 AM EDT [facility] Historical Provider POINT OF CARE TEST ORDE RABLES Final Result [facility] [address] [phone] * HEMOGLOBIN A1C (07/01/2019 4:51 AM EDT) HgbA1C 6.8 % 07/01/2019 2:30 PM EDT Comment: Ranges for Diabetic Adults(Diagnosed/Non-) Hemoglobin A1c(%) ??Glycemic Index <8 ?Less Stringent Goal <7 ? General Goal <6.5 ?More Stringent Goal Ranges to Aid in Diagnosis of Diabetes Hemoglobin A1c(%) ??Suggested Diagnosis ? > or = 6.5 ? Diabetic ?5.7 - 6.4 ?Pre-Diabetic <5.7 ? Non-Diabetic eAVG Glucose 148 mg/dL 07/01/2019 2:30 PM EDT Blood 07/01/2019 4:51 AM EDT 07/01/2019 8:56 AM EDT Sle Historical Provider LAB BLOOD ORDERABLES Fi nal Result [facility] [address] [phone] * LIPID PANEL (07/01/2019 4:51 AM EDT) Triglyceride 44 0 - 249 mg/dL 07/01/2019 9:16 AM EDT Cholesterol HDL 51.0 mg/dL 9 9:16 AM EDT Comment: Desirable > 60 mg/dl Increased Risk < 40 mg/dl Cholesterol Total 144 0 - 199 mg/dL 07/01/2019 9:16 AM EDT Comment: 200 to 239 mg/dL Moderate (borderline) >239 mg/dL ?High Cholesterol VLDL Calculation 8.8 5.0 - 40.0 mg/dL 07/01/2019 9:16 AM EDT Cholesterol LDL Calculation 84.2 0.0 - 99.0 mg/dL 07/01/2019 9:16 AM EDT Comment: DESIRABLE ?<130 BORDERLINE ? 130 to 159 HIGH ? >=160 Cholesterol/HDL Ratio 2.8 0.0 - 3.2 07/01/2019 9:16 AM EDT LDL/HDL Ratio 1.7 0.0 - 3.6 07/01/2019 9:16 AM EDT Blood 07/01/2019 4:51 AM EDT 07/01/2019 9:03 AM EDT [facility] Historical Provider PATHOLOGY/CYTOLOGY ORDE IRVING Final Result [facility] [address] [phone] * (ABNORMAL) CBC W/ AUTO DIFF ([facility] BKR DATA CONV) (07/01/2019 12:50 AM EDT) WBC 11.2(H) 3.6 - 9.5 K/uL 07/01/2019 4:56 AM EDT RBC 4.16(L) 4.20 - 5.70 Million/u L 07/01/2019 4:56 AM EDT Hgb 14.0 13.5 - 17.3 g/dL 07/01/2019 4:56 AM EDT Hct 40.7 40.1 - 51.0 % 07/01/2019 4:56 AM EDT MCV 97.8(H) 79.0 - 94.8 fL 07/01/2019 4:56 AM EDT MCH 33.7(H) 25.6 - 32.2 pg 07/01/2019 4:56 AM EDT MCHC 34.4 32.2 - 36.5 Gram/dL 07/01/2019 4:56 AM EDT RDW 12.0 11.7 - 14.9 % 07/01/2019 4:56 AM EDT Platelet Count 189 163 - 369 K/uL 07/01/2019 4:56 AM EDT MPV 9.4 9.4 - 12.4 fL 07/01/2019 4:56 AM EDT Slide Review Technologist 07/01/2019 5:24 AM EDT Blood 07/01/2019 12:5 0 AM EDT 07/01/2019 4:55 AM EDT [facility] Historical Provider LAB BLOOD ORDERABLES Fi nal Result [facility] [address] [phone] documented in this encounter Visit Diagnoses Not on filedocumented in this encounter
--- OUTSIDE RECORDS SUMMARY | 2024-07-21 17:17 | XMS_ITS | Encounter Summary ---
Author Organization Healthcare Address [address] [place] [address] Care Team Providers Care Child Welfare Specialist Name Role Phone Allyson Avery APRN Primary Care Provider [phone] Encounter Details Date Type Department Care Team (Latest Contact Info) Description 07/30/2023 Travel Social History Tobacco Use Types Packs/Day [...] Description 08/05/2024 1:45 PM EST Office Visit [facility] [address] [place] [address] Heath Kaplan MD [address] [address] documented as of this encounter Visit Diagnoses Not on filedocumented in this encounter Additional Health Concerns Assessment Noted Time A fall risk assessment has been complete d for the patient 07/30/2023 2:24 PM EST A Body Mass Index follow-up plan has been documented for the patient 07/30/2023 3:31 PM EST documented as of this encounter Care Teams Child Welfare Specialist Relationship Specialty Start Date End Date Allyson Avery APRN [address] [place] [address] PCP - General 01/13/21 documented as of this encounter
--- OUTSIDE RECORDS SUMMARY | 2024-07-21 17:17 | XMS_ITS | Encounter Summary ---
Author Organization [facility] [employer] [facility] Address [address] [place] [address] Care Team Providers Care Trap Operator Name Role Phone Bennie Allyson YOKO Primary Care Provider + [phone] Encounter Details Date Type Department Care Team (Late st Contact Info) Description 07/01/2019 Transcribed Document [facility] [place] Medicine [address] [place] [address] ProviderTatiana MD [address] [place] [address] Social History Tobacco Use Types Packs/Day Years Used Date Smoking Tobacco: Never Assessed Sex and Gender Information Value Date Recorded Sex Assigned at Not on file Legal Sex Male 5:33 PM CDT Gender Identity Not on file Sexual Orientation Not on file documented as of this encounter Miscellaneous Notes * Cerner Conversion Note - Historical ProviderMD - 07/01/2019 3:29 AM CDT Evaluation, Physical Therapy Entered On: 07/01/2019 9:56 EDT Performed On: 07/01/2019 9:09 EDT by ABRAHAM BUSTOS, PT General Information, PT Therapy Diagnosis, PT : Assessment for need for skilled PTx --- NONE at this TIME Onset of Problem, PT : 07/01/2019 EDT Co-treated by, PT : Occupational Therapist General Information Comment, PT : 78 yo male adm to [facility] earlier this AM with Dx of CHEST PAINS PMHx significant for HTN, HLD, CAD, SSS w/ PPM ABRAHAM BUSTOS, PT - 07/01/2019 10:24 EDT Visit Type, PT : Initial evaluation ABRAHAM BUSTOS, PT - 07/01/2019 9:56 EDT Patient Orders : Order Date Order Ordering 07/01/2019 03:29 PT Evaluation and Treatment Ordered By: ROMAN NGUYEN MD-INT Active Diagnoses : 07/01/2019 12:00 Abnormal levels of other serum enzymes 07/01/2019 12:00 Chest pain 07/01/2019 12:00 Chest pain, unspecified Admission Date : 07/01/2019 01:59 Personal Devices : Personal Devices No Devices Recorded Assistive Devices : Assistive Devices No Devices Recorded ABRAHAM BUSTOS PT - 07/01/2019 10:24 EDT General Status Patient Received Status : Supine in bed, Other: son present Treatment Start Time : 07/01/2019 8:48 EDT Patient Left Status : Up in chair, RN/PCT informed, Family/Visitors at bedside, Communication board completed, All needs met and within reach, Other: RN in room RN/PCT Informed Comment : yes per KHRIS Stallings Treatment End Time : 07/01/2019 9:09 EDT Treatment Time : 21 Minute(s) Actual Treatment Time : 21 Minute(s) ABRAHAM BUSTOS PT - 07/01/2019 10:24 EDT History and Environment Living Situation, Therapy : Home Patient Lives With : Adult Child/Children, Spouse Persons Assisting Patient at Home : Child/Children, Spouse Professional Skilled Services : None Persons Providing Information : Patient, Child/Children Home Equipment Therapy, PT : None Home Setup : Two story [...] of Steps : 1 Ramp : No ABRAHAM BUSTOS PT - 07/01/2019 10:24 EDT Prior Level of Function PT GRID Prior LOF Ambulation, Household : Independent Prior LOF Ambulation, Community : Independent Prior LOF Bed Mobility : Independent Prior LOF Toileting : Independent Prior LOF Transfer : Independent ABRAHAM BUSTOS PT - 07/01/2019 10:24 EDT Prior LOF Assist with ADL Comment : pt stated there is equipment in home BUT uses them, he does use the SHOWER CHAIR ABRAHAM BUSTOS, PT - 07/01/2019 10:24 EDT Upper Extremity Right UE Active ROM : WFL Right UE Strength : WFL Left UE Active ROM : WFL Left UE Strength : WFL ABRAHAM BUSTOS, PT - 07/01/2019 10:24 EDT Lower Extremity RLE Active ROM : WFL Right LE Strength : WFL LLE Active ROM : WFL Left LE Strength : WFL ABRAHAM BUSTOS, PT - 07/01/2019 10:24 EDT Functional Mobility Mobility Grid Bed Roll Left : Rehab Modified independence Bed Scooting : Rehab Modified independence Supine to Sit : Rehab Modified independence Sit to Stand : Rehab Complete independence Stand to Sit : Rehab Modified independence ABRAHAM BUSTOS, PT - 07/01/2019 10:24 EDT Bed Mobility Scooting Device : Rails Sit to Stand Device : Belt, gait Stand to Sit Device : Belt, gait, Rails ABRAHAM BUSTOS, PT - 07/01/2019 10:24 EDT Gait Training/Assessment, PT Weight Bearing Status : Full Gait Assistance Level : Independent, complete Walking Distance : approx 275 ft Ambulatory Devices : None, Gait belt Gait Deviations : Yes Left Lower Gait Deviation : Constance, decreased Right Lower Gait Deviation : Constance, decreased Gait Training Comment : no LOB noted ABRAHAM BUSTOS, PT - 07/01/2019 10:24 EDT Cognition Assessment, PT Orientation : Oriented x 4 Safety/Judgment Comment : good Follows Basic Command Assessment : yes Attention Assessment : Present Attention Assessment Comment : pt ABRAHAM COLLADO PT - 07/01/2019 10:24 EDT Edu Topics Physical Therapy Education Grid Balance Training : Returns demonstration Bed Mobility Training : Returns demonstration Gait Training : Returns demonstration Role of Physical Therapy : Verbalizes understanding Safety : Returns demonstration Transfer Training : Returns demonstration ABRAHAM BUSTOS, PT - 07/01/2019 10:24 EDT Indication Assesessment, PT Physical Therapy Indicated : No Physical Therapy Not Indicated : No skilled services ind., Prior level of function PT Problem List : Impaired, endurance tolerance Potential Barriers To Therapy : Acuity of Illness Rehabilitation Potential : At prior level of function ABRAHAM BUSTOS, PT - 07/01/2019 10:24 EDT Plan of Care, PT PT Tx Plan/Goals Established w Patient : No Reason Tx/Plan Not Established W/ Pt PT : no skilled needs at this time ABRAHAM BUSTOS, PT - 07/01/2019 10:24 EDT Treatment Note Subjective Comment : agreed to PTx/OTx evals I am feeling better Patient's Response to Treatment : good Assessment : good effort and petr today to mobility no skilled PTx needs identified at this time son able to amb with pt while in hospital Plan for Treatment : EVAL ONLY NO SKILLED NEEDS AT THIS TIME pt independent to Stand by assist with amb -- son able to assist pt JULI, ABRAHAM, PT - 07/01/2019 10:24 EDT Pain Assessment Pain Scaled Used : 0-10 Pain scale Pain Score Pre-Intervention : 0 ABRAHAM BUSTOS, PT - 07/01/2019 10:24 EDT Image 1 - Images currently included in the form version of this document have not been included in the text rendition version of the form. Anticipated Discharge Needs, OT/PT Anticipated Discharge to : Home, with family care Anticipated Home Equipment : None Recommend Continued Therapy at Discharge : No ABRAHAM BUSTOS, PT - 07/01/2019 10:24 EDT [place] PT Charges PT Eval Low Complexity : 1 ABRAHAM BUSTOS PT - 07/01/2019 10:24 EDT Electronically signed by [employer] [facility] Conversion Wrapping Clerk Cerner at 12/20/2022 12:27 PM CDT documented in this encounter Plan of Treatment Not on file documented as of this encounter Visit Diagnoses Not on filedocumented in this encounter Care Teams Trap Operator Relationship Specialty Start Date End Date Allyson Avery APRN [address] [place] [address] [place] [phone] PCP - General Nurse Practitioner 02/06/23 documented as of this encounter
--- NOTE | 2024-07-21 17:25 | XR_ITS ---
PROCEDURE INFORMATION: Exam: XR Left Knee Exam date and time: 07/21/2024 5:29 PM Age: 83 years old Clinical indication: Other: Left knee instability TECHNIQUE: Imaging protocol: Radiologic exam of the left knee. Views: 4 or more views. COMPARISON: No relevant prior studies available. FINDINGS: Bones/joints: Mild medial compartment joint space narrowing. Mild Chondrocalcinosis noted within the medial and lateral compartments. No acute fracture. Soft tissues: Normal. Vasculature: Moderate atherosclerotic calcifications within the popliteal artery. IMPRESSION: 1. No evidence for acute fracture. 2. Mild Chondrocalcinosis noted within the medial and lateral compartments.
--- NOTE | 2024-07-21 17:25 | XR_ITS ---
PROCEDURE INFORMATION: Exam: XR Chest Exam date and time: 07/21/2024 5:29 PM Age: 83 years old Clinical indication: Other: Cad TECHNIQUE: Imaging protocol: Radiologic exam of the chest. Views: 2 views. COMPARISON: CR XR CHEST 2V 10/16/2023 11:41 AM FINDINGS: Tubes, catheters and devices: Dual lead pacemaker device is identified. Lungs: No acute infiltrates.. Pleural spaces: Unremarkable. No pleural effusion. No pneumothorax. Heart/Mediastinum: Unremarkable. No cardiomegaly. Bones/joints: Median sternotomy wires are identified. IMPRESSION: No acute infiltrates..
[2024-07-21 18:08] LABS: Hemoglobin A1C 6.4 % (4.0-6.0)
[2024-07-21 20:39] LABS: Albumin Level 4.6 g/dl (3.5-5.0); Chloride 104 mmol/L (98-107); Potassium 5.1 mmoL/L (3.5-5.1); Sodium 140 mmol/L (136-145)
[2024-07-21 20:42] LABS: Alanine Aminotransferase 23 U/L (12-78); Alkaline Phosphatase 74 U/L (38-126); Anion Gap 12.1 mEq/L (5-15); Aspartate Amino Transferase 32 U/L (17-59); Bilirubin,Total 0.5 mg/dl (0.2-1.3); Blood Urea Nitrogen 43 mg/dl (9-20); Calcium 10.3 mg/dl (8.4-10.2); Carbon Dioxide 29 mmol/L (22.0-30.0); Cholesterol 162 mg/dl (140-200); Estimated Glomerular Filt Rate 58 ml/min (>60); GFR (African American) 70 ML/MIN (>60); Globulin 2.3 g/dL (1.3-3.2); Glucose 131 mg/dl (74-100); Total Protein,Serum 6.9 g/dl (6.3-8.2); Triglycerides 167 mg/dl (30-150); VLDL Cholesterol 33 mg/dL (0-40)
[2024-07-21 20:43] LABS: Chol/HDL Ratio 3.1 (1-3.5); HDL Cholesterol 53 mg/dl (40-60)
[2024-07-21 20:53] LABS: Direct LDL Cholesterol 83.33 mg/dL (100-129)
[2024-07-21 21:13] LABS: Thyroid Stimulating Hormone 1.48 uIU/mL (0.465-4.68)
[2024-07-22 08:21] LABS: Triiodothyronine (T3) Free 1.8 pg/mL (2.0-4.4)
== END 2024-07-21 23:59 | disposition home or self-care (01) ==
LOC: LAB 17:12
PROVIDERS: PCP Nurse Practitioner Family; Visit Provider Nurse Practitioner Family
DX: I10 Essential (primary) hypertension (principal); E11.9 Type 2 diabetes mellitus without complications; E78.5 Hyperlipidemia, unspecified; E03.9 Hypothyroidism, unspecified; I25.10 Atherosclerotic heart disease of native coronary artery without angina pectoris; M23.52 Chronic instability of knee, left knee
CPT/HCPCS: 71046; 73564; 80053; 80061; 83036; 83735; 84443; 84481

== ENCOUNTER 2024-08-03 10:31 | Outpatient (CLI) | payer MEDICARE, SELFPAY ==
--- OUTSIDE RECORDS SUMMARY | 2024-08-03 10:33 | XMS_ITS | Encounter Summary ---
Author Organization [facility] Address [address] [place] [address] Care Team Providers Care Matchbook Assembler Name Role Phone AveryAllyson la YOKO Primary Care Provider + [phone] Reason for Visit * Reason Comments Med Refill Encounter Details Date Type Department Care Team (Late st Contact Info) Description 05/17/2024 Refill [facility] CARDIOLOGY 1720 [facility] [address] [place] [phone] Mansoor Silva MD 1720 [place] [address] Med Refill Social History Tobacco Use Types [...] 11/12/2024 2:15 PM EDT Office Visit [facility] CARDIOLOGY 1720 [facility] 400 [place] [address] Mansoor Silva MD 1720 [facility] 400 [place] [address] 01/21/2025 2:30 PM EDT Office Visit [facility] NEUROLOGY [address] [facility] 201 [place] [phone] Monica Quintero, DNP, GRINDING WHEEL OPERATOR [address] [facility] 202 [place] [address] documented as of this encounter Visit Diagnoses Not on filedocumented in this encounter Care Teams Matchbook Assembler Relationship Specialty Start Date End Date Allyson Avery APRN [facility] [address] [address] PCP - General Internal Medicine 07/22/23 documented as of this encounter
--- OUTSIDE RECORDS SUMMARY | 2024-08-03 10:33 | XMS_ITS | Encounter Summary ---
Author Organization [facility] Address [address] [place] [address] Care Team Providers Care Evp Marketing Name Role Phone AveryAllyson la YOKO Primary Care Provider + [phone] Reason for Visit * Reason Comments Cardiomyopathy Encounter Details Date Type Department Care Team (Late st Contact Info) Description 02/06/2024 11:40 AM EDT Office Visit [facility] CARDIOLOGY [address] [address] Sade Penaloza PA-C 1720 [facility] E [facility] 400 [place] [address] Ischemic cardiomyopathy (Primary Dx); Coronary artery disease of bypass graft of [place] heart with stable angina pectoris; Chronic systolic [...] 02/06/2024 11:40 AM EDT OFFICE VISIT NOTE [facility] CARDIOLOGY Name: Meet Menchaca Date: 02/06/2024 : 1940 REFERRING/PRIMARY PROVIDER: Allyson Avery APRN Chief Complaint Patient presents with Cardiomyopathy HPI: Meet Menchaca is a 83 y.o. male who presents today for follow up of CAD, ischemic cardiomyopathy, [place] ICD. Associated history of diabetes mellitus, hypertension, hyperlipidemia. Historyof CABG, I performed PCI of SVG- OM 10/2016 at [facility], as well as PCI of the MONROY-LAD anastomosis with a 2.5 x 60 mm Synergy EMANUEL, 06/2017, occluded SVG-PDA and [place] RCA, patent SVG-OM. Dual- chamber pacemaker upgraded [place] [address] Will Pérez, he suffered two inappropriate shocks, found to have loose set screw which was repaired 03/2020. EF 35-40% by most recent echo 06/2021, moderate MR. Stress MPS 06/2021 with inferior infarct, no ischemia. Had admission at [facility] for CHF after Covid infection in October. [...] Upgrade of his dual-chamber pacemaker to [facility] dual-chamber ICD Cardiac defibrillator in situ Coronary artery disease of bypass graft of [place] heart with stable angina pectoris Overview 06/26/21: Stress PET: Medium sized infarct in inferior wall with no significant ischemia, LVEF 36% 10/12/16 LHC: Significant stenosis in the SVG to OM2/3 treated with EMANUEL. Moderate lesion distal to the MONROY to the LAD 50-70% by Dr. Silva @ [facility] 12/09/14 LHC: 1/3 grafts occluded, [...] Description 11/12/2024 2:15 PM EDT Office Visit [facility] CARDIOLOGY 1720 [facility] [address] [place] [address] Mansoor Silva MD 1720 [facility] [address] 400 [place] [address] 01/21/2025 2:30 PM EDT Office Visit [facility] NEUROLOGY [address] [facility] [facility] [address] 201 [place] [phone] Monica Quintero, DNP, LEAD IOS DEVELOPER [address] [facility] [address] 202 [place] [address] Scheduled Orders Name Type Priority Associated Diagnoses Orde r Schedule Cardiology Scan Cardiac Services Ord ered: 02/06/2024 documented as of this encounter Visit Diagnoses Diagnosis Ischemic cardiomyopathy- Primary Other specified forms of chronic ischemic heart disease Coronary artery disease of bypass graft of [place] heart with stable angina pectoris Chronic systolic congestive heart failure Hyperlipidemia LDL goal <70 Other and unspecified hyperlipidemia Essential hypertension Unspecified essential hypertension SSS (sick sinus syndrome) Sinoatrial node dysfunction Cardiac defibrillator in situ documented in this encounter Care Teams Evp Marketing Relationship Specialty Start Date End Date Allyson Avery, YOKO [address] [place] [address] [place] [address] PCP - General Internal Medicine 07/22/23 documented as of this encounter
--- OUTSIDE RECORDS SUMMARY | 2024-08-03 10:33 | XMS_ITS ---
Laboratory report Created on: July 24, 2024 PAT HERBERT : 1940 Sex: Male Author Organization Unknown PROBLEMS Problems List Code Description RESULTS Laboratory Orders Date Order Code Test 2024-07-21 133658 TRIIODOTHYRONINE (T3), FREE Laboratory Results Date LOINC Test Value Unit Reference Range Interpre tation 2024-07-21 3051-0 TRIIODOTHYRONINE (T3), FREE 1.8 PG/ML 2.0-4.4 L
--- OUTSIDE RECORDS SUMMARY | 2024-08-03 10:33 | XMS_ITS | Clinical Summary ---
Author Organization [facility] Address [address] [place] [address] Care Team Providers Care Blanket Binder Name Role Phone Bennie Allyson BABCOCK Primary Care Provider + [phone] Allergies No known active allergies Medications multivitamin [...] artery disease of b ypass graft of [place] heart with stable angina pectoris 03/15/2021 Overview (10/10/2021): 06/26/21: Stress PET: Medium sized infarct in inferior wall with no significant ischemia, LVEF 36% 10/12/16 LHC: Significant stenosis in the SVG to OM2/3 treated with EMANUEL. Moderate lesion distal to the MONROY to the LAD 50-70% by Dr. Silva @ [email or web address] 12/09/14 LHC: 1/3 grafts occluded, BMS to [...] 03/16/20 Upgrade of his dual-chamber pacemaker to [facility] dual-chamber ICD Cardiac defibrillator in situ 05/11/2020 Cardiac pacemaker in situ 08/02/2017 Sick sinus syndrome 07/05/2017 Hypertensive disorder 01/16/2016 Coronary atherosclerosis 07/15/2015 Hyperlipidemia 07/15/2015 Gout Arthritis Ischemic cardiomyopathy Overview (01/08/2022): ?? 03/16/20 Upgrade of his dual-chamber pacemaker to [facility] dual-chamber ICD Encounters Date Type Department Care Team Description 05/17/2024 Refill [facility] CARDIOLOGY 1720 [facility] [address] 400 [place] [address] Mansoor Silva MD Med Refill from Last [...] Visit [facility] CARDIOLOGY 1720 [facility] 400 [place] [address] Mansoor Silva MD 1720 [facility] 400 [place] [address] 01/21/2025 2:30 PM EDT Office Visit [facility] NEUROLOGY [address] [facility] [facility] 201 [place] [address] Monica Quintero, DNP, FOOD AND DRINK FACTORY WORKERS [address] [facility] 202 [place] [address] Health Maintenance Due Date Last Done Comments [...] 04/18/2032 04/18/2022 Insurance MEDICARE A & B [facility] HEALTH CARE OPTIONS Advance Directives Documents on File Type Date Recorded Patient Principal Security Architect Expl anation POWER OF HORSE IDENTIFIER - SCAN 03/20/2021 10:31 AM POWER OF HORSE IDENTIFIER, [facility], 05/31/2020 LIVING WILL - SCAN 03/20/2021 10:31 AM IBAN BUTLER, 06/23/2017 Care Teams Blanket Binder Relationship Specialty Start Date End Date Allyson Avery APRN [address] [place] [address] [place] [address] PCP - General Internal Medicine 07/22/23
--- OUTSIDE RECORDS SUMMARY | 2024-08-03 10:33 | XMS_ITS | Encounter Summary ---
[facility] Address [address] [place] [address] Care Team Providers Care Geothermal Technician Name Role Phone AveryAllyson la YOKO Primary Care Provider + [phone] Reason for Visit * Reason Comments Med Refill Encounter Details Date Type Department Care Team (Late st Contact Info) Description 02/26/2024 Refill [facility] CARDIOLOGY 1720 [facility] [address] [place] [phone] Mansoor Silva MD 1720 [place] [address] Med Refill Social History Tobacco Use Types [...] Description 11/12/2024 2:15 PM EDT Office Visit [facility] CARDIOLOGY 1720 [facility] 400 [place] [address] Mansoor Silva MD 1720 [facility] 400 [place] [address] 01/21/2025 2:30 PM EDT Office Visit [facility] NEUROLOGY [address] [facility] 201 [place] [phone] Monica Quintero, DNP, RAILROAD CRANE OPERATOR [address] [facility] 202 [place] [address] documented as of this encounter Visit Diagnoses Not on filedocumented in this encounter Care Teams Geothermal Technician Relationship Specialty Start Date End Date Allyson Avery APRN [facility]0 [facility] [address] [address] PCP - General Internal Medicine 07/22/23 documented as of this encounter
--- OUTSIDE RECORDS SUMMARY | 2024-08-03 10:33 | XMS_ITS ---
Laboratory report Created on: July 29, 2024 PAT HERBERT : 1940 Sex: Male Author Name KARLENE PARIKH Organization Unknown PROBLEMS Problems List Code Description E78.2 E03.9 E11.9 RESULTS Laboratory Orders Date Order Code Test 2022-06-28 [id number] HEMOGLOBIN A1C 2022-06-28 510759 COMP. METABOLIC PANEL (14) 2022-06-28 144610 LIPID PANEL 2022-06-28 [id number] TSH+FREE T4 Laboratory Results Date LOINC Test Value Unit Reference Range Interpre tation 2022-06-28 4548-4 HEMOGLOBIN A1C 6.4 % 4.8-5.6 H 2022-06-28 2345-7 GLUCOSE 110 MG/DL 70-99 H 2022-06-28 3094-0 BUN 26 MG/DL 8-2022-06-28 2160-0 CREATININE .91 MG/DL 0.76-1.27 2022-06-28 21855-1 EGFR 84 ML/MIN/1.7 3 >59 2022-06-28 3097-3 BUN/CREATININE RATIO 29 10-24 H 2022-06-28 2951-2 SODIUM 140 MMOL/L 928-531 2895-10-27 2823-3 POTASSIUM 4.6 MMOL/L 3.5-5.2 2022-06-28 2075-0 CHLORIDE 102 MMOL/L 96-106 2022-06-28 2028-9 CARBON DIOXIDE, TOTAL 26 MMOL/L 20-29 2022-06-28 12401-9 CALCIUM 9.8 MG/DL 8.6-10.2 2022-06-28 2885-2 PROTEIN, TOTAL 6.4 G/DL 6.0-8.5 2022-06-28 1751-7 ALBUMIN 4.1 G/DL 3.6-4.6 2022-06-28 65812-7 GLOBULIN, TOTAL 2.3 G/DL 1.5-4.5 2022-06-28 1759-0 A/G RATIO 1.8 1.2-2.2 2022-06-28 1975-2 BILIRUBIN, TOTAL .6 MG/DL 0.0-1.2 2022-06-28 6768-6 ALKALINE PHOSPHATASE 63 IU/L 44-121 2022-06-28 1920-8 AST (SGOT) 22 IU/L 0-40 2022-06-28 1742-6 ALT (SGPT) 19 IU/L 0-44 2022-06-28 2093-3 CHOLESTEROL, TOTAL 152 MG/DL 279-925 6658-10-27 2571-8 TRIGLYCERIDES 66 MG/DL 0-149 2022-06-28 2085-9 HDL CHOLESTEROL 43 MG/DL >39 2022-06-28 90013-6 VLDL CHOLESTEROL CICI 13 MG/DL 5-40 2022-06-28 82168-7 LDL CHOL CALC ([facility]) 96 MG/DL 0-99 2022-06-28 87006-1 TSH 1.27 UIU/ML 0.450-4.500 2022-06-28 3024-7 T4,FREE(DIRECT) 1.33 NG/DL 0.82-1.77
--- OUTSIDE RECORDS SUMMARY | 2024-08-03 10:33 | XMS_ITS | Encounter Summary ---
[facility] Address [address] [place] [address] Care Team Providers Care Obstetrician/Gynecologist Name Role Phone Allyson Avery YOKO Primary Care Provider + [phone] Reason for Visit * Reason Comments Med Refill Encounter Details Date Type Department Care Team (Late st Contact Info) Description 02/26/2024 Refill [facility] NEUROLOGY [address] [facility] [facility] 201 [place] [address] Monica Quintero, DNP, JAVA DEVELOPER WITH SECURITY CLEARANCE [address] [facility] 202 [place] [address] Mild cognitive impairment Social History [...] Description 11/12/2024 2:15 PM EDT Office Visit [facility] CARDIOLOGY [address] [place] [address] Mansoor Silva MD [address] [place] [address] 01/21/2025 2:30 PM EDT Office Visit [facility] NEUROLOGY [address] [facility] [address] [place] [address] Monica Quintero, SAMUEL, JAVA DEVELOPER WITH SECURITY CLEARANCE [address] [facility] [address] 202 [place] [address] documented as of this encounter Visit Diagnoses Diagnosis Mild cognitive impairment Mild cognitive impairment, so stated documented in this encounter Care Teams Obstetrician/Gynecologist Relationship Specialty Start Date End Date Allyson Avery, YOKO 1210 [facility] 36 [facility] [address] [place] [address] PCP - General Internal Medicine 07/22/23 documented as of this encounter
--- OUTSIDE RECORDS SUMMARY | 2024-08-03 10:33 | XMS_ITS | Encounter Summary ---
Author Organization [facility] Address [address] [place] [address] Care Team Providers Care Supervisor Pipe Manufacture Name Role Phone Allyson Avery YOKO Primary Care Provider + [phone] Reason for Visit * Reason Comments Mild cognitive impairment Encounter Details Date Type Department Care Team (Late st Contact Info) Description 01/22/2024 2:30 PM EDT Office Visit [facility] NEUROLOGY [address] [facility] [facility] 201 [place] [address] Monica Quintero, DNP, SHELTER SUPERVISOR [address] [facility] 202 [place] [address] Moderate cognitive impairment (Primary Dx) [...] encounter Progress Notes * Monica Quintero, SAMUEL, SHELTER SUPERVISOR - 01/22/2024 2:30 PM EDT Neuro Office [...] oriented to person, place, and time. Coordination: Rkuvrt-Duxs-Twgouz Test, Heel to Miranda Test and Romberg [...] Right achilles: 2+ Left achilles: 2+ Right supervisor cutting and sewing room: 2+ Left supervisor cutting and sewing room: 2+ Vital Signs: Vitals: 01/22/24 1429 BP: [...] 11/12/2024 2:15 PM EDT Office Visit [facility] CARDIOLOGY 1720 [facility] 400 [place] [address] Mansoor Silva MD 1720 [facility] 400 [place] [address] 01/21/2025 2:30 PM EDT Office Visit [facility] NEUROLOGY [address] [facility] [address] 201 [place] [address] Monica Quintero DNP, APRN 610 [facility] [address] 202 [place] [address] documented as of this encounter Procedures Procedure [...] Primary documented in this encounter Care Teams Supervisor Pipe Manufacture Relationship Specialty Start Date End Date Allyson Avery APRN [address] [place] [address] PCP - General Internal Medicine 07/22/23 documented as of this encounter
--- NOTE | 2024-08-03 10:34 | US_ITS ---
FINAL REPORT CLINICAL HISTORY: Atherosclerosis of popliteal arteries COMPARISON: None FINDINGS: ANKLE-BRACHIAL PRESSURE INDICES Pressure indices are as follows: RIGHT LOWER EXTREMITY: Ankle-brachial pressure index: 0.8 Comments: Abnormally depressed LEFT LOWER EXTREMITY: Ankle-brachial pressure index: 1.0 Comments: Normal CONCLUSION: Abnormally depressed ankle-brachial index in the right lower extremity. The left lower extremity is normal. Reviewed, Interpreted and Dictated by Quinn Gao III, MD Transcribed by Aleah Zee Authenticated and [facility]
--- OUTSIDE RECORDS SUMMARY | 2024-08-03 10:34 | XMS_ITS | Encounter Summary ---
Author Organization [facility] Address [address] [place] [address] Care Team Providers Care Curtain Roller Assembler Name Role Phone Bennie Allyson YOKO Primary Care Provider + [phone] Encounter Details Date Type Department Care Team (Late st Contact Info) Description 10/11/2023 Telephone [facility] CARDIOLOGY [address] [facility] [address] [place] [address] Mansoor Silva MD 1720 [facility] 400 [place] [address] Social History Tobacco Use Types Packs/Day Years [...] Visit [facility] CARDIOLOGY 17[address] [facility] [address] [place] [address] Mansoor Silva MD 1720 [facility] 400 [place] [address] 01/21/2025 2:30 PM EDT Office Visit [facility] NEUROLOG[facility] [address] [facility] 201 [place] [address] Monica Quintero, DNP, TUB CHUCKER [address] [place] [address] documented as of this encounter Visit Diagnoses Not on filedocumented in this encounter Care Teams Curtain Roller Assembler Relationship Specialty Start Date End Date Allyson Avery, TUB CHUCKER [facility] [address] [address] PCP - General Internal Medicine 07/22/23 documented as of this encounter
--- OUTSIDE RECORDS SUMMARY | 2024-08-03 10:34 | XMS_ITS | Encounter Summary ---
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 Coronary artery disease of bypass graft of [place] heart wit HPI: Meet Menchaca is a 82 y.o. male who presents today for follow up of??CAD,??ischemic cardiomyopathy, [place] ICD. ??Associated??history of diabetes mellitus, hypertension, hyperlipidemia. ??History of CABG, I performed PCI of SVG-OM 10/2016 at [facility], as well as PCI of the MONROY-LAD anastomosis with a 2.5 x 60 mm Synergy EMANUEL,??06/2017, occluded SVG-PDA and [place] RCA, patent SVG- OM. 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 Moderate lesion distal to the MONROY to the LAD 50-70% by Dr. Silva @ [facility] 12/09/14 LHC: 1/3 grafts occluded, BMS [...] 03/16/20 Upgrade of his dual-chamber pacemaker to [facility] dual-chamber ICD PLAN: 1.?CAD: Continue aspirin, Plavix, [...] 9 months (around 09/28/2023). Mansoor Silva MD, [facility] Interventional Cardiology documented in this encounter Plan of Treatment Upcoming Encounters Date Type Department Care Team (Late st Contact Info) Description 11/12/2024 2:15 PM EDT Office Visit [facility] [address] [place] [address] [address] [place] [address] Mansoor Silva MD 1720 [facility] 400 [place] [address] 01/21/2025 2:30 PM EDT Office Visit [facility] [address] [facility] [facility] 201 [place] [address] Monica Quintero, SAMUEL, MANAGER CAR 610 [address] [facility] 202 [place] [address] Scheduled Orders Name Type Priority Associated Diagnoses Orde r Schedule SCANNED - CARDIOLOGY Cardiac Services Ordered: 12/27/2022 documented as of this encounter Procedures Procedure Name Priority Date/Time Associated Diagnosis Comments ECG 12-LEAD Routine 12/27/2022 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 ? Coronary artery disease of bypass graft of [place] heart wit HPI: Meet Menchaca is a 82 y.o. male who presents today for follow upof??CAD,??ischemic cardiomyopathy, [place] ICD. ??Associated??history ofdiabetes mellitus, hypertension, hyperlipidemia. ??History of CABG, Iperformed PCI of SVG-OM 10/2016 at [facility], as well as PCI of the MONROY-LADanastomosis with a 2.5 x 60 mm Synergy EMANUEL,??06/2017, occluded SVG-PDA andnative RCA, patent SVG-OM. ??Dual-chamber pacemaker upgraded to ICD in [address]by Dr. 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 Silva @ [facility] 12/09/14 LHC: 1/3 grafts occluded, BMS [...] 03/16/20 Upgrade of his dual-chamber pacemaker to [facility] dual-chamberICD PLAN: 1.?CAD: Continue aspirin, Plavix, rosuvastatin, [...] months (around 09/28/2023). 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
--- OUTSIDE RECORDS SUMMARY | 2024-08-03 10:34 | XMS_ITS | Encounter Summary ---
[facility] Address [address] [place] [address] Care Team Providers Care Alley Tender Name Role Phone Allyson Avery YOKO Primary Care Provider + [phone] Reason for Visit * Reason Onset Date Comments Med Refill 07/17/2021 Encounter Details Date Type Department Care Team (Late Contact Info) Description 07/17/2021 Refill [facility] CARDIOLOGY [address] [phone] Mansoor Silva MD 1720 [place] [address] Med Refill Social History Tobacco Use Types [...] Visit [facility] CARDIOLOGY 1720 [facility] 400 [place] [address] Mansoor Silva MD 1720 [facility] 400 [place] [address] 01/21/2025 2:30 PM EDT Office Visit [facility] NEUROLOGY [address] [facility] 201 [place] [address] Moniac Quintero, DNP, PROGRAM COUNSELOR 610 [address] [facility] 202 [place] [address] documented as of this encounter Visit Diagnoses Not on filedocumented in this encounter Care Teams Alley Tender Relationship Specialty Start Date End Date Allyson Avery APRN PCP - General Internal Medicine 03/15/21 07/21/23 documented as of this encounter
--- OUTSIDE RECORDS SUMMARY | 2024-08-03 10:34 | XMS_ITS | Encounter Summary ---
[facility] Organization [facility] Address [address] [place] [address] Care Team Providers Care Security Inspector Name Role Phone Allyson Avery YOKO Primary Care Provider + [phone] Reason for Visit * Reason Comments Med Refill Encounter Details Date Type Department Care Team (Late st Contact Info) Description 07/07/2023 Refill [facility] NEUROLOGY [address] [facility] 201 [place] [address] Monica Quintero, DNP, GLOVE CUTTER [address] [facility] 202 [place] [address] Mild cognitive impairment Social History [...] 2:15 PM EDT Office Visit [facility] CARDIOLOGY [address] [facility] 400 [place] [address] Mansoor Silva MD [address] [facility] 400 [place] [address] 01/21/2025 2:30 PM EDT Office Visit [facility] NEUROLOGY [address] [facility] 201 [place] [address] Monica Quintero, SAMUEL, GLOVE CUTTER [address] [facility] 202 [place] [address] documented as of this encounter Visit Diagnoses Diagnosis Mild cognitive impairment Mild cognitive impairment, so stated documented in this encounter Care Teams Security Inspector Relationship Specialty Start Date End Date Allyson Avery APRN PCP - General Internal Medicine 03/15/21 07/21/23 documented as of this encounter
--- OUTSIDE RECORDS SUMMARY | 2024-08-03 10:34 | XMS_ITS | Encounter Summary ---
[facility] Address [address] [place] [address] Care Team Providers Care Information Management Specialist Name Role Phone AveryAllyson la YOKO Primary Care Provider + [phone] Reason for Visit * Reason Comments Med Refill Encounter Details Date Type Department Care Team (Late st Contact Info) Description 06/17/2023 Refill [facility] CARD[facility]OLOG[facility] 17[address] [facility] 400 [place] [phone] Mansoor Silva MD 1720 [place] [address] Med Refill Social History Tobacco Use Types [...] Description 11/12/2024 2:15 PM EDT Office Visit [facility] [address] [facility] 400 [place] [address] Mansoor Silva MD 1720 [facility] 400 [place] [address] 01/21/2025 2:30 PM EDT Office Visit [facility] NE[facility] [address] [facility] 201 [place] [phone] Monica Quintero, SAMUEL, RESOURCE CENTER TEACHER [address] [facility] 202 [place] [address] documented as of this encounter Visit Diagnoses Not on filedocumented in this encounter Care Teams Information Management Specialist Relationship Specialty Start Date End Date Alylson Avery APRN PCP - General Internal Medicine 03/15/21 07/21/23 documented as of this encounter
--- OUTSIDE RECORDS SUMMARY | 2024-08-03 10:34 | XMS_ITS | Encounter Summary ---
[facility] Address [address] [place] [address] Care Team Providers Care Inspector Floor Name Role Phone Allyson Avery YOKO Primary Care Provider + [phone] Reason for Visit * Reason Comments Mild cognitive impairment Encounter Details Date Type Department Care Team (Late st Contact Info) Description 07/22/2023 2:30 PM EST Office Visit [facility] NEUROLOGY [address] [facility] 201 [place] [address] Monica Quintero, DNP, RECREATION PROFESSOR [address] [facility] [address] [place] [address] Mild cognitive impairment Social History [...] encounter Progress Notes * Monica Quintero, DNP, RECREATION PROFESSOR - 07/22/2023 2:30 PM EST Neuro Office [...] Right achilles: 2+ Left achilles: 2+ Right crusher setter: 2+ Left crusher setter: 2+ Vital Signs: Vitals: 07/22/23 1418 BP: 154/84 Pulse: 80 SpO2: 98% Weight: 73.9 kg (163 lb) Height: 177.8 cm (70 ) Body mass index is 23.39 kg/m??. Assessment / Plan Assessment/Plan: Diagnoses and all orders for this visit: 1. Mild cognitive impairment Comments: Inc namenda to 5 mg bid. MMSE and Gabbs and next visit Orders: - memantine (NAMENDA) [...] 11/12/2024 2:15 PM EDT Office Visit [facility] CARDIOLOGY [address] [facility] 400 [place] [address] Mansoor Silva MD 1720 [facility] 400 [place] [address] 01/21/2025 2:30 PM EDT Office Visit [facility] NEUROLOGY [address] [facility] 201 [place] [address] Monica Quintero DNP, YOKO [address] [facility] [address] [place] [address] documented as of this encounter Visit Diagnoses Diagnosis Mild cognitive impairment Mild cognitive impairment, so stated documented in this encounter Care Teams Inspector Floor Relationship Specialty Start Date End Date Allyson Avery APRN [facility] [address] [address] PCP - General Internal Medicine 07/22/23 documented as of this encounter
--- OUTSIDE RECORDS SUMMARY | 2024-08-03 10:34 | XMS_ITS | Encounter Summary ---
Author Organization [facility] Address [address] [place] [address] Care Team Providers Care Developer Analyst Name Role Phone Bennie Allyson YOKO Primary Care Provider + [phone] Encounter Details Date Type Department Care Team (Late st Contact Info) Description 10/14/2023 Telephone [facility] CARDIOLOGY [address] [place] [phone] Mansoor Silva MD 1720 [facility] 400 [place] [address] Social History Tobacco Use Types Packs/Day Years [...] [facility] CARDIOLOGY [address] [facility] 400 [place] [address] Mansoor Silva MD 1720 [facility] 400 [place] [address] 01/21/2025 2:30 PM EDT Office Visit [facility] NEUROLOGY [address] [facility] 201 [place] [address] Monica Quintero, DNP, CRIB PAD MAKER [address] [facility] 202 [place] [address] documented as of this encounter Visit Diagnoses Not on filedocumented in this encounter Care Teams Developer Analyst Relationship Specialty Start Date End Date Allyson Avery APRN [address] [place] [address] PCP - General Internal Medicine 07/22/23 documented as of this encounter
--- OUTSIDE RECORDS SUMMARY | 2024-08-03 10:34 | XMS_ITS | Encounter Summary ---
[facility] Address [address] [place] [address] Care Team Providers Care Drum Loader And Unloader Name Role Phone Allyson Avery YOKO Primary Care Provider + [phone] Reason for Visit * Reason Comments Coronary Artery Disease Encounter Details Date Type Department Care Team (Late st Contact Info) Description 04/12/2022 2:45 PM EDT Office Visit [facility] CARDIOLOGY [address] [address] Mansoor Silva MD 1720 [place] [address] Coronary artery disease of bypass graft of [place] heart with stable angina pectoris (Primary Dx); [...] 04/12/2022 2:45 PM EDT OFFICE VISIT NOTE [facility] CARDIOLOGY Name: Meet Menchaca Date: 04/12/2022 : 1940 REFERRING/PRIMARY PROVIDER: Allyson Avery APRN Chief Complaint Patient presents with ??? Coronary Artery Disease HPI: Meet Menchaca is a 81 y.o. male who presents today for follow up of CAD,??ischemic cardiomyopathy, [place] ICD. ??Associated history of diabetes mellitus, hypertension, hyperlipidemia. ??History of CABG, I performed PCI of SVG-OM 10/2016 at [facility], as well as PCI of the MONROY-LAD anastomosis with a 2.5 x 60 mm Synergy EMANUEL,??06/2017, occluded SVG-PDA and [place] RCA, patent SVG-OM. ??Dual-chamber pacemaker upgraded to [...] 1 tablet, Oral, 2 times daily ??? 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 Moderate lesion distal to the MONROY to the LAD 50-70% by Dr. Silva @ [facility] 12/09/14 LHC: 1/3 grafts occluded, BMS to [...] pacemaker to [facility] dual-chamber ICD PLAN: 1.?CAD: Continue aspirin, Plavix, [...] 6 months (around 10/13/2022). Mansoor Silva MD, [facility] Interventional Cardiology documented in this encounter Plan of Treatment Upcoming Encounters Date Type Department Care Team (Late st Contact Info) Description 11/12/2024 2:15 PM EDT Office Visit [facility] CARDIOLOGY 1720 [facility] 400 [place] [address] Mansoor Silva MD 1720 [facility] 400 [place] [address] 01/21/2025 2:30 PM EDT Office Visit [facility] NEUROLOGY [address] [facility] 201 [place] [address] Monica Quintero, DNP, PAINTER SPRAY [address] [facility] [address] [place] [address] documented as of this encounter Visit Diagnoses Diagnosis Coronary artery disease of bypass graft of [place] heart with stable angina pectoris- Primary Chronic systolic congestive heart failure Essential hypertension Unspecified essential hypertension Hyperlipidemia LDL goal <70 Other and unspecified hyperlipidemia Ischemic cardiomyopathy Other specified forms of chronic ischemic heart disease documented in this encounter Care Teams Drum Loader And Unloader Relationship Specialty Start Date End Date Allyson Avery APRN PCP - General Internal Medicine 03/15/21 07/21/23 documented as of this encounter
--- OUTSIDE RECORDS SUMMARY | 2024-08-03 10:34 | XMS_ITS | Encounter Summary ---
[facility] Address [address] [place] [address] Care Team Providers Care Clinical Data Assistant Name Role Phone Allyson Avery YOKO Primary Care Provider + [phone] Reason for Visit * Reason Comments Med Refill Encounter Details Date Type Department Care Team (Late Contact Info) Description 08/14/2022 Refill [facility] CARDIOLOGY [address] [facility] 400 [place] [address] Mansoor Silva MD 1720 [place] [address] Med Refill Social History Tobacco Use Types [...] Description 11/12/2024 2:15 PM EDT Office Visit [facility] CARDIOLOGY [address] [facility] 400 [place] [address] Mansoor Silva MD [address] [facility] 400 [place] [address] 01/21/2025 2:30 PM EDT Office Visit [facility] NEUROLOGY [address] [facility] 201 [place] [address] Monica Quintero, SAMUEL, WOOD ROOM HAND [address] [facility] 202 [place] [address] documented as of this encounter Visit Diagnoses Not on filedocumented in this encounter Care Teams Clinical Data Assistant Relationship Specialty Start Date End Date Allyson Avery APRN PCP - General Internal Medicine 03/15/21 07/21/23 documented as of this encounter
--- OUTSIDE RECORDS SUMMARY | 2024-08-03 10:34 | XMS_ITS | Encounter Summary ---
[facility] [address] [place] [address] Care Team Providers Care Furniture Sander Name Role Phone Allyson Avery YOKO Primary Care Provider + [phone] Reason for Visit * Reason Comments Med Refill Encounter Details Date Type Department Care Team (Late Contact Info) Description 07/18/2022 Refill [facility] CARDIOLOGY 1720 [facility] 400 [place] [address] Mansoor Silva MD 1720 [place] [address] Med Refill Social History Tobacco Use Types [...] Description 11/12/2024 2:15 PM EDT Office Visit [facility] CARDIOLOGY 1720 [facility] 400 [place] [address] Mansoor Silva MD [address] [facility] 400 [place] [address] 01/21/2025 2:30 PM EDT Office Visit [facility] NEUROLOGY [address] [facility] [address] [place] [address] Monica Quintero, SAMUEL, PACK WORKER [address] [facility] [address] [place] [address] documented as of this encounter Visit Diagnoses Not on filedocumented in this encounter Care Teams Furniture Sander Relationship Specialty Start Date End Date Allyson Avery APRN PCP - General Internal Medicine 03/15/21 07/21/23 documented as of this encounter
--- OUTSIDE RECORDS SUMMARY | 2024-08-03 10:34 | XMS_ITS | Encounter Summary ---
[facility] Address [address] [place] [address] Care Team Providers Care Door Trimmer Name Role Phone Allyson Avery YOKO Primary Care Provider + [phone] Reason for Visit * Reason Onset Date Comments Med Refill 05/23/2022 Encounter Details Date Type Department Care Team (Late Contact Info) Description 05/23/2022 Refill [facility] CARDIOLOGY [address] [phone] Mansoor Silva MD 1720 [place] [address] Med Refill Social History Tobacco Use Types [...] Visit [facility] CARDIOLOGY 1720 [facility] 400 [place] [address] Mansoor Silva MD 1720 [facility] 400 [place] [address] 01/21/2025 2:30 PM EDT Office Visit [facility] NEUROLOGY [address] [facility] 201 [place] [address] Monica Quintero, DNP, SUPERVISOR INDUSTRIAL GARMENT [address] [facility] 202 [place] [address] documented as of this encounter Visit Diagnoses Not on filedocumented in this encounter Care Teams Door Trimmer Relationship Specialty Start Date End Date Allyson Avery APRN PCP - General Internal Medicine 03/15/21 07/21/23 documented as of this encounter
--- OUTSIDE RECORDS SUMMARY | 2024-08-03 10:34 | XMS_ITS | Encounter Summary ---
[facility] Address [address] [place] [address] Care Team Providers Care Heel Builder Machine Name Role Phone Allyson Avery YOKO Primary Care Provider + [phone] Reason for Visit * Reason Comments Med Refill Encounter Details Date Type Department Care Team (Late st Contact Info) Description 04/11/2023 Refill [facility] NEUROLOGY [address] [facility] [facility] 201 [place] [address] Monica Quintero, DNP, COIL WINDING MACHINES SET UP MECHANIC [address] [facility] 202 [place] [address] Mild cognitive impairment Social History [...] 2:15 PM EDT Office Visit [facility] CARDIOLOGY [address] [facility] 400 [place] [address] Mansoor Silva MD 1720 [facility] 400 [place] [address] 01/21/2025 2:30 PM EDT Office Visit [facility] NEUROLOGY [address] [facility] [facility] 201 [place] [address] Monica Quintero, SAMUEL, COIL WINDING MACHINES SET UP MECHANIC [address] [facility] 202 [place] [address] documented as of this encounter Visit Diagnoses Diagnosis Mild cognitive impairment Mild cognitive impairment, so stated documented in this encounter Care Teams Heel Builder Machine Relationship Specialty Start Date End Date Allyson Avery APRN PCP - General Internal Medicine 03/15/21 07/21/23 documented as of this encounter
--- OUTSIDE RECORDS SUMMARY | 2024-08-03 10:34 | XMS_ITS | Encounter Summary ---
Author [facility] Address [address] [place] [address] Care Team Providers Care Materials Management Manager Name Role Phone Allyson Avery YOKO Primary Care Provider + [phone] Encounter Details Date Type Department Care Team (Late st Contact Info) Description 01/21/2023 Telephone [facility] NEUROLOGY [address] [facility] 201 [place] [address] Monica Quintero, DNP, CURATOR OF MANUSCRIPTS [address] [facility] 202 [place] [address] Social History Tobacco Use Types [...] appreciative. ----- Message from Monica Quintero DNP, CURATOR OF MANUSCRIPTS sent at 01/21/2023 9:08 AM EDT ----- Please notify pt folate, vit b12, blood counts, thyroid levels with no concerning findings. documented in this encounter Plan of Treatment Upcoming Encounters Date Type Department Care Team (Late st Contact Info) Description 11/12/2024 2:15 PM EDT Office Visit [facility] CARDIOLOGY 1720 [facility] 400 [place] [address] Mansoor Silva MD 1720 [facility] 400 [place] [address] 01/21/2025 2:30 PM EDT Office Visit [facility] NEUROLOGY [address] [facility] 201 [place] [address] Monica Quintero DNP, CURATOR OF MANUSCRIPTS [address] [facility] 202 [place] [address] documented as of this encounter Visit Diagnoses Not on filedocumented in this encounter Care Teams Materials Management Manager Relationship Specialty Start Date End Date Allyson Avery APRN PCP - General Internal Medicine 03/15/21 07/21/23 documented as of this encounter
--- OUTSIDE RECORDS SUMMARY | 2024-08-03 10:34 | XMS_ITS | Encounter Summary ---
[facility] Address [address] [place] [address] Care Team Providers Care Fundraiser Name Role Phone Allyson Avery YOKO Primary Care Provider + [phone] Reason for Visit * Reason Onset Date Comments Med Refill 07/18/2022 Encounter Details Date Type Department Care Team (Late Contact Info) Description 07/18/2022 Refill [facility] CARDIOLOGY [address] [phone] Mansoor Silva MD 1720 [place] [address] Med Refill Social History Tobacco Use Types [...] Description 11/12/2024 2:15 PM EDT Office Visit [facility] CARDIOLOGY 1720 [facility] 400 [place] [address] Mansoor Silva MD 1720 [facility] 400 [place] [address] 01/21/2025 2:30 PM EDT Office Visit [facility] NEUROLOGY [address] [facility] 201 [place] [address] Monica Quintero, DNP, ELECTRICAL ASSEMBLY SUPERVISOR [address] [facility] 202 [place] [address] documented as of this encounter Visit Diagnoses Not on filedocumented in this encounter Care Teams Fundraiser Relationship Specialty Start Date End Date Allyson Avery APRN PCP - General Internal Medicine 03/15/21 07/21/23 documented as of this encounter
--- OUTSIDE RECORDS SUMMARY | 2024-08-03 10:34 | XMS_ITS | Encounter Summary ---
[facility] Address [address] [place] [address] Care Team Providers Care Computer Technology Trainer Name Role Phone Allyson Avery YOKO Primary Care Provider + [phone] Reason for Visit * Reason Onset Date Comments Med Refill 04/03/2022 Encounter Details Date Type Department Care Team (Late Contact Info) Description 04/03/2022 Refill [facility] CARDIOLOGY [address] [place] [address] Mansoor Silva MD 1720 [facility] 400 [place] [address] Med Refill Social History Tobacco Use Types [...] Visit [facility] CARDIOLOGY 1720 [facility] 400 [place] [address] Mansoor Silva MD 1720 [facility] 400 [place] [address] 01/21/2025 2:30 PM EDT Office Visit [facility] NEUROLOGY [address] [facility] 201 [place] [address] Monica Quintero, DNP, DIRECTOR PRODUCT [address] [facility] 202 [place] [address] documented as of this encounter Visit Diagnoses Not on filedocumented in this encounter Care Teams Computer Technology Trainer Relationship Specialty Start Date End Date Allyson Avery APRN PCP - General Internal Medicine 03/15/21 07/21/23 documented as of this encounter
--- OUTSIDE RECORDS SUMMARY | 2024-08-03 10:34 | XMS_ITS | Encounter Summary ---
[facility] Address [address] [place] [address] Care Team Providers Care Senior Case Manager Name Role Phone lAlyson Avery APRN Primary Care Provider + [phone] Encounter Details Date Type Department Care Team (Late st Contact Info) Description 09/20/2022 Telephone [facility] CARDIOLOGY [address] [address] Mansoor Silva MD 1720 [facility] 400 [place] [address] Social History Tobacco Use Types Packs/Day Years [...] 11/12/2024 2:15 PM EDT Office Visit [facility] CARDIOLOGY 1720 [facility] 400 [place] [address] Mansoor Silva MD 1720 [facility] 400 [place] [address] 01/21/2025 2:30 PM EDT Office Visit [facility] NEUROLOGY [address] [facility] 201 [place] [address] Monica Quintero, DNP, CLERK OF SUPERIOR COURT [address] [facility] 202 [place] [address] documented as of this encounter Visit Diagnoses Not on filedocumented in this encounter Care Teams Senior Case Manager Relationship Specialty Start Date End Date Allyson Avery APRN PCP - General Internal Medicine 03/15/21 07/21/23 documented as of this encounter
--- OUTSIDE RECORDS SUMMARY | 2024-08-03 10:34 | XMS_ITS | Encounter Summary ---
[facility] Address [address] [place] [address] Care Team Providers Care Housing Case Manager Name Role Phone AveryAllyson la YOKO Primary Care Provider + [phone] Reason for Visit * Reason Comments Pacemaker Check PMT Encounter Details Date Type Department Care Team (Latest Contact Info) Description 11/24/2021 11:15 AM EDT Clinical Support No Requirements [facility] CARDIOLOGY 1720 [facility] 400 [place] [address] Pacemaker-mediated tachycardia (Primary Dx) Social [...] PM EDT Office Visit [facility] CARDIOLOGY 1720 [facility] 400 [place] [address] Mansoor Silva MD [address] [facility] 400 [place] [address] 01/21/2025 2:30 PM EDT Office Visit [facility] NEUROLOGY [address] [facility] 201 [place] [address] Monica Quintero, DNP, RES HABILITATION ASSISTANT [address] [facility] 202 [place] [address] documented as of this encounter Visit Diagnoses Diagnosis Pacemaker-mediated tachycardia- Primary Other specified cardiac dysrhythmias documented in this encounter Care Teams Housing Case Manager Relationship Specialty Start Date End Date Allyson Avery APRN PCP - General Internal Medicine 03/15/21 07/21/23 documented as of this encounter
--- OUTSIDE RECORDS SUMMARY | 2024-08-03 10:34 | XMS_ITS | Encounter Summary ---
[facility] Address [address] [place] [address] Care Team Providers Care Rag Collector Name Role Phone Allyson Avery YOKO Primary Care Provider + [phone] Reason for Visit * Reason Comments Coronary Artery Disease Encounter Details Date Type Department Care Team (Late st Contact Info) Description 10/12/2021 11:30 AM EST Office Visit [facility] [address] [address] Mansoor Silva MD [address] [place] [address] Coronary artery disease of bypass graft of [place] heart with stable angina pectoris (Primary Dx); [...] 10/12/2021 11:30 AM EST OFFICE VISIT NOTE [facility] Name: Mario Menchaca Date: 10/12/2021 : 1940 REFERRING/PRIMARY PROVIDER: Allyson Avery APRN Chief Complaint Patient presents with ??? Coronary Artery Disease HPI: Mario Menchaca is a 81 y.o. male who presents today for follow up of CAD, ischemic cardiomyopathy, [place] ICD. Associated history of diabetes mellitus, hypertension, hyperlipidemia. History of CABG, I performed PCI of SVG- OM 10/2016 at [facility], as well as PCI of the MONROY-LAD anastomosis with a2.5 x 60 mm Synergy EMANUEL, 06/2017, occluded SVG-PDA and [place] RCA, patent SVG-OM. Dual- chamber pacemaker upgraded [...] mg, Oral, 2 Times Daily ??? Jennaara Tbohqme-Kaods-Wjv Lax (BIOHM COLON CLEANSER PO) 1 tablet, [...] 1 tablet, Oral, 2 times daily ??? [place]-3 Fatty Acids (FISH OIL PO) 2,400 mg, [...] of [place] heart with stable angina pectoris ([facility]) - Primary Overview 06/26/21: Stress PET: Medium sized infarct in inferior wall with no significant ischemia, LVEF 36% 10/12/16 LHC: Significant stenosis in the SVG to OM2/3 treated with EMANUEL. Moderate lesion distal to the MONROY to the LAD 50-70% by Dr. Silva @ [facility] 12/09/14 LHC: 1/3 grafts occluded, BMS to SVG to OM2/OM3. EF 35-40% Failed attempt at PCI to OM1 distribution due to tortuosity and heavy calcification. BMS to proximal LAD. 04/29/07 CABG: MONROY to LAD, SVG to D1 & OM2, SVG to RCA. Hyperlipidemia LDL goal <70 Essential hypertension SSS (sick sinus syndrome) ([facility]) Overview 03/16/20 Upgrade of his dual-chamber pacemaker [...] both accurate and complete. Mansoor Silva MD, [facility] Cardiology 10/12/21 12:12 EST documented in this encounter Plan of Treatment Upcoming Encounters Date Type Department Care Team (Late st Contact Info) Description 11/12/2024 2:15 PM EDT Office Visit [facility] [address] [facility] [address] [place] [phone] Mansoor Silva MD 1720 [facility] [address] [place] [address] 01/21/2025 2:30 PM EDT Office Visit [facility] [address] [facility] [facility] [address] [place] [address] Monica Quintero, DNP, SCHOOL PHOTOGRAPHER [address] [facility] [address] [place] [address] documented as of this encounter Visit Diagnoses Diagnosis Coronary artery disease of bypass graft of [place] heart with stable angina pectoris- Primary Chronic systolic congestive heart failure SSS (sick sinus syndrome) Sinoatrial node dysfunction Hyperlipidemia LDL goal <70 Other and unspecified hyperlipidemia Essential hypertension Unspecified essential hypertension documented in this encounter Care Teams Rag Collector Relationship Specialty Start Date End Date Allyson Avery APRN PCP - General Internal Medicine 03/15/21 07/21/23 documented as of this encounter
--- OUTSIDE RECORDS SUMMARY | 2024-08-03 10:34 | XMS_ITS | Encounter Summary ---
[facility] [address] [place] [address] Care Team Providers Care Sales Clerk Supervisor Name Role Phone Allyson Avery APRN Primary Care Provider + [phone] Reason for Visit * Reason Comments Memory Loss * Consultation (Routine) - Closed Specialty Diagnoses / Procedures Referred By Venancio t Referred To Contact Neurology Diagnoses Memory loss Terry Quintana MD [address] [place] [address] Phone: tel: fax: [facility] [address] [facility] [address] [place] [address] Phone: tel: fax: Referral ID Status Reason Start Date Expiration Date Visits Re quested Visits Authorized [id number] Closed 07/23/2022 07/23/2023 1 1 Encounter Details Date Type Department Care Team (Late st Contact Info) Description 01/18/2023 11:00 AM EDT Office Visit [facility] [address] [facility] [facility] [address] [place] [address] Monica Quintreo DNP, CONTROL CLERK [address] [facility] [address] [place] [address] Mild cognitive impairment (Primary Dx) [...] encounter Progress Notes * Monica Quintero, SAMUEL, CONTROL CLERK - 01/18/2023 11:00 AM EDT Neuro Office [...] oriented to person, place, and time. Coordination: Orvzyd-Zbrs-Yewzbi Test, Heel to Miranda Test and Romberg [...] Right achilles: 2+ Left achilles: 2+ Right professor of public administration: 2+ Left professor of public administration: 2+ Vital Signs: Vitals: 01/18/23 1040 BP: [...] EDT Office Visit [facility] [address] [place] [address] Mansoor Silva MD [address] [place] [address] 01/21/2025 2:30 PM EDT Office Visit [facility] [address] [facility] [facility] [address] [place] [address] Monica Quintero DNP, APRN [address] [place], [place] [id number] documented as of this encounter Procedures Procedure Name Priority Date/Time Associated Diagnosis Comments SCANNED COGNITIVE ASSESSMENT 01/18/2023 documented in this encounter Results * T4 (01/18/2023 11:40 AM EDT) T4, Total 5.67 4.50 - 11.70 mcg/dL 01/18/2023 6:55 PM EDT [facility] Blood Venipuncture / Unknown 01/18/2023 11:40 AM EDT 01/18/2023 11:40 AM EDT Narrative [facility] - 01/18/2023 6:55 PM EDT Results may be falsely increased if patient taking Biotin. Monica Quintero DNP, APRN LAB BLOOD ORDERABL ES Final Result [facility]
[address] [place] [address], * TSH (01/18/2023 11:40 AM EDT) TSH 1.130 0.270 - 4.200 uIU/mL 01/18/2023 6:55 PM EDT [facility] Blood Venipuncture / Unknown 01/18/2023 11:40 AM EDT 01/18/2023 11:40 AM EDT Monica Quintero DNP, CONTROL CLERK LAB BLOOD ORDERABL ES Final Result [facility]
[address] [place] [address], * (ABNORMAL) Vitamin B12 & Folate (01/18/2023 11:40 AM EDT) Pathologist [facility] Folate >20.00 4.78 - 24.20 ng/mL 01/18/2023 7:07 PM EDT [facility] Vitamin B-12 1,561(H) 211 - 946 pg/mL 01/18/2023 7:07 PM EDT [facility] Blood Venipuncture / Unknown 01/18/2023 11:40 AM EDT 01/18/2023 11:40 AM EDT Narrative [facility] - 01/18/2023 7:07 PM EDT Results may be falsely increased if patient taking Biotin. Monica Quintero DNP, YOKO LAB BLOOD ORDERABL ES Final Result [facility]
[address] [place] [address], * (ABNORMAL) CBC Auto Differential (01/18/2023 11:40 AM EDT) WBC 5.24 3.40 - 10.80 10*3/mm3 01/18/2023 6:18 PM EDT [facility] RBC 4.37 4.14 - 5.80 10*6/mm3 01/18/2023 6:18 PM EDT [facility] Hemoglobin 15.0 13.0 - 17.7 g/dL 01/18/2023 6:18 PM EDT [facility] Hematocrit 44.5 37.5 - 51.0 % 01/18/2023 6:18 PM EDT [facility] MCV 101.8(H) 79.0 - 97.0 fL 01/18/2023 6:18 PM EDT [facility] MCH 34.3(H) 26.6 - 33.0 pg 01/18/2023 6:18 PM EDT [facility] MCHC 33.7 31.5 - 35.7 g/dL 01/18/2023 6:18 PM EDT [facility] RDW 11.9(L) 12.3 - 15.4 % 01/18/2023 6:18 PM T [facility] RDW-SD 44.6 37.0 - 54.0 fl 01/18/2023 6:18 PM T [facility] MPV 9.2 6.0 - 12.0 fL 01/18/2023 6:18 PM EDT [facility] Platelets 142 140 - 450 10*3/mm3 01/18/2023 6:18 PM EDT [facility] Neutrophil % 69.3 42.7 - 76.0 % 01/18/2023 6:18 PM EDT [facility] Lymphocyte % 20.0 19.6 - 45.3 % 01/18/2023 6:18 PM EDT [facility] Monocyte % 7.4 5.0 - 12.0 % 01/18/2023 6:18 PM EDT [facility] Eosinophil % 2.1 0.3 - 6.2 % 01/18/2023 6:18 PM EDT [facility] Basophil % 1.0 0.0 - 1.5 % 01/18/2023 6:18 PM EDT [facility] Immature Grans % 0.2 0.0 - 0.5 % 01/18/2023 6:18 PM EDT [facility] Neutrophils, Absolute 3.63 1.70 - 7.00 10*3/mm3 01/18/2023 6:18 PM EDT [facility] Lymphocytes, Absolute 1.05 0.70 - 3.10 10*3/mm3 01/18/2023 6:18 PM EDT [facility] Monocytes, Absolute 0.39 0.10 - 0.90 10*3/mm3 01/18/2023 6:18 PM EDT [facility] Eosinophils, Absolute 0.11 0.00 - 0.40 10*3/mm3 01/18/2023 6:18 PM EDT [facility] Basophils, Absolute 0.05 0.00 - 0.20 10*3/mm3 01/18/2023 6:18 PM EDT [facility] Immature Grans, Absolute 0.01 0.00 - 0.05 10*3/mm3 01/18/2023 6:18 PM EDT [facility] nRBC 0.0 0.0 - 0.2 /100 WBC 01/18/2023 6:18 PM EDT [facility] Blood Venipuncture / Unknown 01/18/2023 11:40 AM EDT 01/18/2023 11:40 AM EDT us Monica Quintero DNP, APRN LAB BLOOD ORDERABL ES Final Result [facility]
[address] [place] [address], * SCANNED COGNITIVE ASSESSMENT (01/18/2023) us Monica Quintero DNP, APRN NEUROLOGY ORDERABL ES Final Result documented in this encounter Visit Diagnoses Diagnosis Mild cognitive impairment- Primary Mild cognitive impairment, so stated documented in this encounter Care Teams Sales Clerk Supervisor Relationship Specialty Start Date End Date Allyson Avery APRN PCP - General Internal Medicine 03/15/21 07/21/23 documented as of this encounter
--- OUTSIDE RECORDS SUMMARY | 2024-08-03 10:34 | XMS_ITS | Encounter Summary ---
[facility] Address [address] [place] [address] Care Team Providers Care Surveillance System Monitor Name Role Phone Allyson Avery YOKO Primary Care Provider + [phone] Reason for Visit * Reason Comments Med Refill Encounter Details Date Type Department Care Team (Late st Contact Info) Description 04/14/2023 Refill [facility] [address] [facility] [address] [place] [address] Monica Quintero, DNP, PORTFOLIO MANAGEMENT MARKETING [address] [facility] [address] [place] [address] Mild cognitive impairment Social History [...] Office Visit [facility] [address] [facility] [address] [place] [address] Mansoor Silva MD [address] [facility] [address] [place] [address] 01/21/2025 2:30 PM EDT Office Visit [facility] [address] [facility] [address] [place] [address] Monica Quintero, SAMUEL, PORT[employer]EMENT MARKETING [address] [facility] [address] [place] [address] documented as of this encounter Visit Diagnoses Diagnosis Mild cognitive impairment Mild cognitive impairment, so stated documented in this encounter Care Teams Surveillance System Monitor Relationship Specialty Start Date End Date Allyson Avery APRN PCP - General Internal Medicine 03/15/21 07/21/23 documented as of this encounter
--- OUTSIDE RECORDS SUMMARY | 2024-08-03 10:34 | XMS_ITS | Encounter Summary ---
[facility] Address [address] [place] [address] Care Team Providers Care Lubricating Machine Tender Name Role Phone Allyson Avery APRN Primary Care Provider + [phone] Reason for Visit * Reason Comments Coronary artery disease of bypass graft of [place] heart wit Consult * Consultation (Routine) - Closed Specialty Diagnoses / Procedures Referred By Contact Referred To Contact Cardiac Electrophysiology / Cardiology Diagnoses Pacemaker-mediated tachycardia Mansoor Silva MD [address] [facility] [address] [place] [address] Phone: tel: fax: [facility] [address] [address] Phone: tel: fax: Referral ID Status Reason Start Date Expiration Date V isits Requested Visits Authorized [id number] Closed Specialty Services Required 11/21/2021 11/21/2022 1 1 Encounter Details Date Type Department Care Team (Late st Contact Info) Description 01/08/2022 3:00 PM EDT Office Visit [facility] [address] [facility] [address] [place] [phone] Triston Borjas DO [address] [facility] [place] [address] PMT (pacemaker-mediated tachycardia) (Primary Dx); SSS (sick [...] not included. Cardiac Electrophysiology Outpatient Consult Note [facility] Consult Note Meet Menchaca [phone] 01/08/2022 Primary Care Physician: Allyson Avery APRN Referred By: Mansoor Silva MD Subjective Chief Complaint: Diagnoses and all orders for this visit: 1. PMT (pacemaker-mediated tachycardia) (Primary) 2. SSS (sick sinus syndrome) (HCC) 3. Ischemic cardiomyopathy Chief Complaint Patient presents with ??? Coronary artery disease of bypass graft of [place] heart wit Consult History of Present Illness: [...] dual-chamber ICD ??? SSS (sick sinus syndrome) ([facility]) 03/15/2021 Priority: High Note Last Updated: 01/08/2022 ?? 03/16/20 Upgrade of his dual-chamber pacemaker to SJM dual-chamber ICD ??? Chronic systolic congestive heart failure ([facility]) 10/10/2021 Priority: Medium Note Last Updated: 10/10/2021 06/29/21 Echo: LVEF 36-40%, grade II diastolic dysfunction, moderate MR, moderately reduced RVSF ??? Coronary artery disease of bypass graft of [place] heart with stable angina pectoris ([facility]) 03/15/2021 Priority: Medium Note Last Updated: 10/10/2021 [...] times a day., Disp: , Rfl: ??? [place]-3 Fatty Acids (FISH OIL PO), Take 2,400 [...] than 65% of this time in direct vjzt-jy-bcmn counseling, physical examination and discussion of my [...] concerns. Triston Borjas DO, FAC, RS Cardiac Project Construction Assistant Manager [facility] Scribed for Triston Borjas DO documented in this encounter Plan of Treatment Upcoming Encounters Date Type Department Care Team (Late st Contact Info) Description 11/12/2024 2:15 PM EDT Office Visit [facility] [address] [facility] [address] [place] [address] Mansoor Silva MD [address] [facility] [address] [place] [address] 01/21/2025 2:30 PM EDT Office Visit [facility] [address] [facility] [address] [place] [address] Monica Quintero, DNP, PHYSICIAN NEONATOLOGY [address] [facility] [address] [place] [address] documented as of this encounter Procedures Procedure [...] disease documented in this encounter Care Teams Lubricating Machine Tender Relationship Specialty Start Date End Date Allyson Avery APRN PCP - General Internal Medicine 03/15/21 07/21/23 documented as of this encounter
--- OUTSIDE RECORDS SUMMARY | 2024-08-03 10:34 | XMS_ITS | Encounter Summary ---
[facility] Address [address] [place] [address] Care Team Providers Care Delimer Name Role Phone Allyson Avery APRN Primary Care Provider + [phone] Reason for Referral * Consultation (Routine) - Closed Specialty Diagnoses / Procedures Referred By Contact Referred To Contact Cardiac Electrophysiology / Cardiology Diagnoses Pacemaker-mediated tachycardia Mansoor Silva MD [address] [place] [address] Phone: tel: fax: [facility] [address] [place] [phone] Phone: tel: fax: Referral ID Status Reason Start Date Expiration Date V isits Requested Visits Authorized [id number] Closed Specialty Services Required 11/21/2021 11/21/2022 1 1 Encounter Details Date Type Department Care Team (Late st Contact Info) Description 11/21/2021 Telephone [facility] [address] [place], [place] [phone] Mansoor Silva MD [address] [place] [address] Social History Tobacco Use Types Packs/Day Years [...] Visit [facility] [address] [facility] 400 [place] [address] Mansoor Silva MD [address]20 [facility] 400 [place] [address] 01/21/2025 2:30 PM EDT Office Visit [facility] [address] [facility] [address] [place] [address] Monica Quintero, SAMUEL, CROZE CUTTER [address] [facility] [address] [place] [address] Scheduled Referrals Name Type Priority Associated Diagnoses Order Schedule Ambulatory Referral to Cardiac Electrophysiology Outpatient Referral Routine Pacemaker-mediated tachycardia Ordered: 11/21/2021 documented as of this encounter Visit Diagnoses Diagnosis Pacemaker-mediated tachycardia- Primary Other specified cardiac dysrhythmias documented in this encounter Care Teams Delimer Relationship Specialty Start Date End Date Allyson Avery APRN PCP - General Internal Medicine 03/15/21 07/21/23 documented as of this encounter
--- OUTSIDE RECORDS SUMMARY | 2024-08-03 10:34 | XMS_ITS | Encounter Summary ---
[facility] [address] [place] [address] Care Team Providers Care Animal Cytologist Name Role Phone Allyson Avery YOKO Primary Care Provider + [phone] Reason for Visit * Reason Onset Date Comments Med Refill 08/08/2021 Encounter Details Date Type Department Care Team (Late Contact Info) Description 08/08/2021 Refill [facility] [address] [phone] Mansoor Silva MD [address] [place] [address] Med Refill Social History Tobacco Use Types [...] [facility] [address] [facility] 400 [place] [address] Mansoor Silva MD 1720 [facility] 400 [place] [address] 01/21/2025 2:30 PM EDT Office Visit [facility] [address] [facility] 201 [place] [address] Monica Quintero, DNP, BOAT RENTAL CLERK [address] [facility] [address] [place] [address] documented as of this encounter Visit Diagnoses Not on filedocumented in this encounter Care Teams Animal Cytologist Relationship Specialty Start Date End Date Allyson Avery APRN PCP - General Internal Medicine 03/15/21 07/21/23 documented as of this encounter
--- OUTSIDE RECORDS SUMMARY | 2024-08-03 10:34 | XMS_ITS | Encounter Summary ---
[facility] Address [address] [place] [address] Care Team Providers Care Intermediate Frame Tender Name Role Phone Allyson Avery IT HELP DESK MANAGER Primary Care Provider + [phone] Encounter Details Date Type Department Care Team (Late Contact Info) Description 01/18/2023 11:40 AM EDT Lab [facility] [address] [facility] [address] [place] [address] Mild cognitive impairment Social History [...] 2:15 PM EDT Office Visit [facility] [address] [facility] [address] [place] [phone] Mansoor Silva MD 1720 [facility] [address] [place] [phone] 01/21/2025 2:30 PM EDT Office Visit [facility] NEUR[facility] [address] [place] [address] Monica Quintero DNP, IT HELP DESK MANAGER [address] [place] [address] documented as of this encounter [...] - 11.70 mcg/dL 01/18/2023 6:55 PM EDT [facility] Blood Venipuncture / Unknown 01/18/2023 11:40 AM EDT 01/18/2023 11:40 AM EDT Narrative [facility] - 01/18/2023 6:55 PM EDT Results may be falsely increased if patient taking Biotin. us Monica Quintero DNP, IT HELP DESK MANAGER LAB BLOOD ORDERABL ES Final Result [facility]
[address] [place] [address], * TSH (01/18/2023 11:40 AM EDT) TSH 1.130 0.270 - 4.200 uIU/mL 01/18/2023 6:55 PM EDT [facility] Blood Venipuncture / Unknown 01/18/2023 11:40 AM EDT 01/18/2023 11:40 AM EDT Monica Quintero DNP, YOKO LAB BLOOD ORDERABL ES Final Result Performing Organization Address [facility]/ZIP Co de Phone Number [facility]
[address] [place] [address], * (ABNORMAL) Vitamin B12 & Folate (01/18/2023 11:40 AM EDT) Folate >20.00 4.78 - 24.20 ng/mL 01/18/2023 7:07 PM EDT [facility] Vitamin B-12 1,561(H) 211 - 946 pg/mL 01/18/2023 7:07 PM EDT [facility] Blood Venipuncture / Unknown 01/18/2023 11:40 AM EDT 01/18/2023 11:40 AM EDT Narrative [facility] - 01/18/2023 7:07 PM EDT Results may be falsely increased if patient taking Biotin. Monica Quintero DNP, YOKO LAB BLOOD ORDERABL ES Final Result Performing Organization Address City/[facility] Co de Phone Number [facility]
[address] [place] [address], * (ABNORMAL) CBC Auto Differential (01/18/2023 11:40 AM EDT) WBC 5.24 3.40 - 10.80 10*3/mm3 01/18/2023 6:18 PM EDT [facility] RBC 4.37 4.14 - 5.80 10*6/mm3 01/18/2023 6:18 PM EDT [facility] Hemoglobin 15.0 13.0 - 17.7 g/dL 01/18/2023 6:18 PM EDT [facility] Hematocrit 44.5 37.5 - 51.0 % 01/18/2023 6:18 PM EDT [facility] MCV 101.8(H) 79.0 - 97.0 fL 01/18/2023 6:18 PM EDT [facility] MCH 34.3(H) 26.6 - 33.0 pg 01/18/2023 6:18 PM EDT [facility] MCHC 33.7 31.5 - 35.7 g/dL 01/18/2023 6:18 PM [facility] RDW 11.9(L) 12.3 - 15.4 % 01/18/2023 6:18 PM [facility] RDW-SD 44.6 37.0 - 54.0 fl 01/18/2023 6:18 PM [facility] MPV 9.2 6.0 - 12.0 fL 01/18/2023 6:18 PM EDT [facility] Platelets 142 140 - 450 10*3/mm3 01/18/2023 6:18 PM [facility] Neutrophil % 69.3 42.7 - 76.0 % 01/18/2023 6:18 PM EDT [facility] Lymphocyte % 20.0 19.6 - 45.3 % 01/18/2023 6:18 PM [facility] Monocyte % 7.4 5.0 - 12.0 % 01/18/2023 6:18 PM EDT [facility] Eosinophil % 2.1 0.3 - 6.2 % 01/18/2023 6:18 PM EDT [facility] Basophil % 1.0 0.0 - 1.5 % 01/18/2023 6:18 PM EDT [facility] Immature Grans % 0.2 0.0 - 0.5 % 01/18/2023 6:18 PM EDT [facility] Neutrophils, Absolute 3.63 1.70 - 7.00 10*3/mm3 01/18/2023 6:18 PM EDT [facility] Lymphocytes, Absolute 1.05 0.70 - 3.10 10*3/mm3 01/18/2023 6:18 PM EDT [facility] Monocytes, Absolute 0.39 0.10 - 0.90 10*3/mm3 01/18/2023 6:18 PM EDT [facility] Eosinophils, Absolute 0.11 0.00 - 0.40 10*3/mm3 01/18/2023 6:18 PM EDT [facility] Basophils, Absolute 0.05 0.00 - 0.20 10*3/mm3 01/18/2023 6:18 PM EDT [facility] Immature Grans, Absolute 0.01 0.00 - 0.05 10*3/mm3 01/18/2023 6:18 PM EDT [facility] nRBC 0.0 0.0 - 0.2 /100 WBC 01/18/2023 6:18 PM EDT [facility] Blood Venipuncture / Unknown 01/18/2023 11:40 AM EDT 01/18/2023 11:40 AM EDT Monica Quintero DNP, IT HELP DESK MANAGER LAB BLOOD ORDERABL ES Final Result [facility]
[address] [place] [address], documented in this encounter Visit Diagnoses Diagnosis Mild cognitive impairment Mild cognitive impairment, so stated documented in this encounter Care Teams Intermediate Frame Tender Relationship Specialty Start Date End Date Allyson Avery APRN PCP - General Internal Medicine 03/15/21 07/21/23 documented as of this encounter
--- OUTSIDE RECORDS SUMMARY | 2024-08-03 10:34 | XMS_ITS | Encounter Summary ---
Author Organization [facility] Address [address] [place] [address] Care Team Providers Care Power Reactor Operator Name Role Phone BennieAllyson YOKO Primary Care Provider + [phone] Reason for Visit * Reason Comments Coronary artery disease of b ypass graft of [place] heart wit Patient was admitted to hospital in [place] on Saturday about 5am. Encounter Details Date Type Department Care Team (Late st Contact Info) Description 10/10/2023 11:15 AM EST Office Visit [facility] [address] [address] Mansoor Silva MD [address] [place] [address] Ischemic cardiomyopathy (Primary Dx); Cardiac defibrillator in situ; Coronary artery disease of bypass graft of [place] heart with stable angina pectoris; Hyperlipidemia LDL [...] systolic congestive heart failure OFFICE VISIT NOTE [facility] Name: Meet Menchaca Date: 10/10/2023 : 1940 REFERRING/PRIMARY PROVIDER: Allyson Avery APRN Chief Complaint Patient presents with Coronary artery disease of bypass graft of [place] heart wit Patient was admitted to hospital in [place] on Saturday about 5am. HPI: Meet Menchaca is a 83 y.o. male who presents today for follow up of CAD, ischemic cardiomyopathy, [place] ICD. Associated history of diabetes mellitus, hypertension, hyperlipidemia. Historyof CABG, I performed PCI of SVG- OM 10/2016 at [facility], as well as PCI of the MONROY-LAD anastomosis with a 2.5 x 60 mm Synergy EMANUEL, 06/2017, occluded SVG-PDA and [place] RCA, patent SVG-OM. Dual- chamber pacemaker upgraded to ICD [place] [address] Will Pérez, he suffered two inappropriate shocks, found to have loose set screw which was repaired 03/2020. EF 35-40% by most recent echo 06/2021, moderate MR. Stress MPS 06/2021 with inferior infarct, no ischemia. He was hospitalized at [facility] just 2 days ago, discharged yesterday. [...] 03/16/20 Upgrade of his dual-chamber pacemaker to [facility] dual-chamber ICD Ischemic cardiomyopathy - Primary Overview 03/16/20 Upgrade of his dual-chamber pacemaker to [facility] dual-chamber ICD Cardiac defibrillator in situ Coronary artery disease of bypass graft of [place] heart with stable angina pectoris Overview 06/26/21: Stress PET: Medium sized infarct in inferior wall with no significant ischemia, LVEF 36% 10/12/16 LHC: Significant stenosis in the SVG to OM2/3 treated with EMANUEL. Moderate lesion distal to the MONROY to the LAD 50-70% by Dr. Silva @ [facility] 12/09/14 LHC: 1/3 grafts occluded, BMS to [...] both accurate and complete. Mansoor Silva MD, [facility] 10/11/23 15:42 EST documented in this encounter Plan of Treatment Upcoming Encounters Date Type Department Care Team (Late st Contact Info) Description 11/12/2024 2:15 PM EDT Office Visit [facility] [address] [place] [phone] Mansoor Silva MD [address] [facility] [address] [place] [address] 01/21/2025 2:30 PM EDT Office Visit [facility] [address] [place] [phone] Monica Quintero, DNP, RANCH COOK [address] [place] [address] Scheduled Orders Name Type Priority Associated Diagnoses [...] - Final * SCANNED - LABS (10/10/2023) [facility] Onbase LAB BLOOD ORDERABLES Final Re sult documented in this encounter Visit Diagnoses Diagnosis Ischemic cardiomyopathy- Primary Other specified forms of chronic ischemic heart disease Cardiac defibrillator in situ Coronary artery disease of bypass graft of [place] heart with stable angina pectoris Hyperlipidemia LDL goal <70 Other and unspecified hyperlipidemia SSS (sick sinus syndrome) Sinoatrial node dysfunction Chronic systolic congestive heart failure documented in this encounter Care Teams Power Reactor Operator Relationship Specialty Start Date End Date Allyson Avery APRN [address] [place] [address] PCP - General Internal Medicine 07/22/23 documented as of this encounter
--- OUTSIDE RECORDS SUMMARY | 2024-08-03 10:34 | XMS_ITS | Encounter Summary ---
[facility] Address [address] [place] [address] Care Team Providers Care Turbinated Bone Grinder Name Role Phone Allyson Avery APRN Primary Care Provider + [phone] Encounter Details Date Type Department Care Team (Late st Contact Info) Description 09/11/2022 Telephone [facility] [address] [address] Mansoor Silva MD [address] [place] [address] Social History Tobacco Use Types Packs/Day Years [...] Description 11/12/2024 2:15 PM EDT Office Visit [facility] [address] [facility] [address] [place] [phone] Mansoor Silva MD 1720 [facility] [address] [place] [address] 01/21/2025 2:30 PM EDT Office Visit [facility] [address] [facility] [address] [place] [address] Monica Quintero, DNP, WINDOW FRAMER [address] [facility] [address] [place] [address] documented as of this encounter Visit Diagnoses Not on filedocumented in this encounter Care Teams Turbinated Bone Grinder Relationship Specialty Start Date End Date Allyson Avery APRN PCP - General Internal Medicine 03/15/21 07/21/23 documented as of this encounter
--- OUTSIDE RECORDS SUMMARY | 2024-08-03 10:34 | XMS_ITS | Encounter Summary ---
[facility] Address [address] [place] [address] Care Team Providers Care Investigation Division Lieutenant Name Role Phone Allyson Avery YOKO Primary Care Provider + [phone] Reason for Visit * Reason Comments Med Refill Encounter Details Date Type Department Care Team (Late st Contact Info) Description 07/11/2023 Refill [facility] [address] [facility] [address] [place] [address] Monica Quintero, DNP, CLOTH NAPPING SUPERVISOR [address] [facility] [address] [place] [address] Mild cognitive impairment Social History [...] Visit [facility] [address] [facility] [facility] 400 [place] [address] Mansoor Silva MD [address] [facility] [address] [place] [address] 01/21/2025 2:30 PM EDT Office Visit [facility] [address] [facility] [address] [place] [address] Monica Quintero, SAMUEL, CLOTH NAPPING SUPERVISOR [address] [facility] 202 [place] [address] documented as of this encounter Visit Diagnoses Diagnosis Mild cognitive impairment Mild cognitive impairment, so stated documented in this encounter Care Teams Investigation Division Lieutenant Relationship Specialty Start Date End Date Allyson Avery APRN PCP - General Internal Medicine 03/15/21 07/21/23 documented as of this encounter
--- OUTSIDE RECORDS SUMMARY | 2024-08-03 10:34 | XMS_ITS | Encounter Summary ---
[facility] Organization [facility] Address [address] [place] [address] Care Team Providers Care Group Activities Aide Name Role Phone AveryAllyson la YOKO Primary Care Provider + [phone] Reason for Visit * Reason Comments Med Refill Encounter Details Date Type Department Care Team (Late st Contact Info) Description 08/30/2023 Refill [facility] [address] [facility] [address] [place] [phone] Mansoor Silva MD [address]20 [place] [address] Med Refill Social History Tobacco Use Types [...] [facility] [address] [facility] 400 [place] [address] Mansoor Silva MD [address] [facility] [address] [place] [address] 01/21/2025 2:30 PM EDT Office Visit [facility] [address] [facility] [address] [place] [phone] Monica Quintero, DNP, NIBBLER OPERATOR [address] [facility] [address] [place] [address] documented as of this encounter Visit Diagnoses Not on filedocumented in this encounter Care Teams Group Activities Aide Relationship Specialty Start Date End Date Allyson Avery APRN [facility] [address] [address] PCP - General Internal Medicine 07/22/23 documented as of this encounter
--- OUTSIDE RECORDS SUMMARY | 2024-08-03 10:35 | XMS_ITS | Encounter Summary ---
[facility] Organization [facility] Address [address] [place] [address] Care Team Providers Care Gravel Hauler Name Role Phone Allyson Avery YOKO Primary Care Provider + [phone] Reason for Visit * Reason Onset Date Comments Results 07/03/2021 Encounter Details Date Type Department Care Team (Late st Contact Info) Description 07/03/2021 Telephone [facility] [address] [address] Mansoor Silva MD 17[address] [place] [address] Results Social History Tobacco Use Types Packs/Day [...] [facility] [address]20 [facility] 400 [place] [phone] Mansoor Silva MD 1720 [facility] 400 [place] [address] 01/21/2025 2:30 PM EDT Office Visit [facility] [address] [facility] 201 [place] [address] Monica Quintero, DNP, SOFTWARE QUALITY ASSURANCE ENGINEER [address] [facility] [address] [place], [place] [phone] documented as of this encounter Visit Diagnoses Not on filedocumented in this encounter Care Teams Gravel Hauler Relationship Specialty Start Date End Date Allyson Avery APRN PCP - General Internal Medicine 03/15/21 07/21/23 documented as of this encounter
--- OUTSIDE RECORDS SUMMARY | 2024-08-03 10:35 | XMS_ITS | Encounter Summary ---
Author Organization [facility] Address [address] [place] [address] Care Team Providers Care Power Plant Operations Manager Name Role Phone Allyson Avery APRN Primary Care Provider + [phone] Encounter Details Date Type Department Care Team (Late st Contact Info) Description 03/17/2020 Transcribed Document [facility] [place] Family Medicine [address] [place] [address] ProviderTatiana MD [address] [place] [id number] Social History Tobacco Use Types Packs/Day Years [...] on filedocumented in this encounter Care Teams Power Plant Operations Manager Relationship Specialty Start Date End Date Allyson Avery APRN [address] [place] [phone] PCP - General Nurse Practitioner 02/06/23 documented as of this encounter
--- OUTSIDE RECORDS SUMMARY | 2024-08-03 10:35 | XMS_ITS | Encounter Summary ---
Author Organization [facility] Address [address] [place] [address] Care Team Providers Care Ferry Captain Name Role Phone Bennie Allyson YOKO Primary Care Provider + [phone] Encounter Details Date Type Department Care Team (Late st Contact Info) Description 03/23/2020 Transcribed Document [facility] [address] [place] [address] ProviderTatiana MD [address] [place] [phone] Social History Tobacco Use Types Packs/Day Years Used Date Smoking Tobacco: Never Assessed Sex and Gender Information Value Date Recorded Sex Assigned at Not on file Legal Sex Male 5:33 PM CDT Gender Identity Not on file Sexual Orientation Not on file documented as of this encounter Miscellaneous Notes * Cerner Conversion Note - Historical MD Collin - 03/23/2020 4:49 PM CDT DATE OF [...] home remote monitoring, and device clinic followup. /[id number] Parish Pérez MD TCR/AQ / TCR / MODL /[id number] Electronically signed by [facility] Conversion Developer Advisor Cerner at 12/20/2022 12:33 PM CDT documented in this encounter Plan of Treatment Not on file documented as of this encounter Visit Diagnoses Not on filedocumented in this encounter Care Teams Ferry Captain Relationship Specialty Start Date End Date Allyson Avery APRN [address] [phone] PCP - General Nurse Practitioner 02/06/23 documented as of this encounter
--- OUTSIDE RECORDS SUMMARY | 2024-08-03 10:35 | XMS_ITS | Encounter Summary ---
[facility] Address [address] [place] [address] Care Team Providers Care Pitting Machine Operator Name Role Phone Allyson Avery APRN Primary Care Provider + [phone] Reason for Referral * Diagnostic Imaging (Routine) - Closed Specialty Diagnoses / Procedures Referred By Contac t Referred To Contact Diagnoses Coronary artery disease of bypass graft of [place] heart with stable angina pectoris Hyperlipidemia LDL goal <70 Procedures Stress Test With Pet Myocardial Perfusion (Multi Study) Mansoor Silva MD [address] [address] Phone: tel: fax: [address] [address] Phone: tel: Referral ID Status Reason Start Date Expiration Date Visits Re quested Visits Authorized [id number] Closed 06/19/2021 06/19/2022 1 1 Encounter Details Date Type Department Care Team (Late st Contact Info) Description 06/19/2021 Telephone [facility] [address] [address] Mansoor Silva MD 17[address] [place] [address] Social History Tobacco Use Types Packs/Day Years [...] Description 11/12/2024 2:15 PM EDT Office Visit [facility] [address] [place] [phone] Mansoor Silva MD [address] [place], [place] [address] 01/21/2025 2:30 PM EDT Office Visit [facility] NEUR[facility] [address] [facility] [address] [place] [address] Monica Quintero, DNP, BOILERMAKER LOFTSMAN [address] [facility] [address] [place] [address] documented as of this encounter [...] block Arrhythmias during recovery: occasional PVC's. Test Assembler [employer] [place] ECG [place] us Mansoor Silva MD CV STRESS ORDERABLES Final Re sult documented in this encounter Visit Diagnoses Diagnosis Coronary artery disease of bypass graft of [place] heart with stable angina pectoris- Primary Hyperlipidemia LDL goal <70 Other and unspecified hyperlipidemia Coronary artery disease of bypass graft of [place] heart with stable angina pectoris Hyperlipidemia LDL goal <70 Other and unspecified hyperlipidemia documented in this encounter Care Teams Pitting Machine Operator Relationship Specialty Start Date End Date Allyson Avery APRN PCP - General Internal Medicine 03/15/21 07/21/23 documented as of this encounter
--- OUTSIDE RECORDS SUMMARY | 2024-08-03 10:35 | XMS_ITS | Encounter Summary ---
Author Organization [facility] Address [address] [place] [address] Care Team Providers Care Independent Freight Agent Name Role Phone Bennie Allyson YOKO Primary Care Provider + [phone] Reason for Visit * Reason Comments Establish Care * Consultation (Routine) - Closed Specialty Diagnoses / Procedures Referred By Venancio milian Referred To Contact Cardiology Diagnoses Establishing care with new doctor, encounter for Referring, [place] [address] Mansoor Silva MD [address] [place] [address] Phone: tel: fax: Referral ID Status Reason Start Date Expiration Date Visits Re quested Visits Authorized [id number] Closed 02/10/2021 02/10/2022 1 1 Encounter Details Date Type Department Care Team (Late st Contact Info) Description 03/17/2021 1:15 PM EDT Office Visit [facility] [address] [place] [phone] Mansoor Silva MD [address] [place] [address] Coronary artery disease of bypass graft of conf[place] g[place] heart with stable angina pectoris (Primary Dx); [...] Coronary artery disease of bypass graft of [place] heart with stable angina pectoris OFFICE VISIT NOTE [facility] Name: Mario Menchaca Date: 03/17/2021 : [...] I performed PCI of SVG-OM 10/2016 at [facility], as well as PCI of the MONROY-LAD anastomosis with a 2.5 x 60 mm Synergy EMANUEL, 06/2017, occluded SVG-PDA and [place] RCA, patent SVG-OM. Dual-chamber pacemaker upgraded to [...] With Meals., Disp: , Rfl: ??? Cascara Tkmamjr-Obxql-Ihy Lax ([facility] COLON CLEANSER PO), Take 1 tablet by [...] times a day., Disp: , Rfl: ??? [place]-3 Fatty Acids (FISH OIL PO), Take 2,400 [...] Coronary artery disease of bypass graft of conf[place] gosh[place] heart with stable angina pectoris (CMS/HCC) - Primary Overview 10/12/16 [facility]: Significant stenosis in the SVG to OM2/3 treated with EMANUEL. Moderate lesion distal to the MONROY to the LAD 50-70% by Dr. Silva @ [facility] 12/09/14 [facility]: 1/3 grafts occluded, BMS [...] 20 MG tablet SSS (sick sinus syndrome) ([facility]) Overview 03/16/20 Upgrade of his dual-chamber pacemaker to [facility] dual-chamber ICD Relevant Medications carvedilol (COREG) 25 [...] me with any questions. Mansoor Silva MD, [facility] Office: [facility] [place] [address] 03/17/21 documented in this encounter Plan of Treatment Upcoming Encounters Date Type Department Care Team (Late st Contact Info) Description 11/12/2024 2:15 PM EDT Office Visit [facility] [address] [facility] [address] [place] [address] Mansoor Silva MD [address] [facility] [address] [place] [address] 01/21/2025 2:30 PM EDT Office Visit [facility] [address] [facility] [address] [place] [address] Monica Quintero, SAMUEL, NURSERYPERSON [address] [place] [address] documented as of this encounter Procedures Procedure Name Priority Date/Time Associated Diagnosis Comments ECG 12-LEAD Routine 03/17/2021 Coronary artery disease of bypass graft of confed[place] heart with stable angina pectoris documented in [...] 03/17/2021 1:15 PM EDT OFFICE VISIT NOTE [facility] Name: Mario Menchaca Date: 03/17/2021 : 1940 REFERRING/PRIMARY PROVIDER: Allyson Avery APRN Chief Complaint Patient presents with ? ? Establish Care HPI: Mario Menchaca is a 80 y.o. male who presents today for newconsultation to establish care with history of CAD, ischemiccardiomyopathy, [place] ICD. Associate history of diabetes mellitus,hypertension, hyperlipidemia. History of CABG, I performed PCI of SVG-OM10/2016 at [facility], as well as PCI of the MONROY-LAD anastomosis with a 2.5 x 60mm Synergy EMANUEL, 06/2017, occluded SVG-PDA and [place] RCA, patent SVG-OM.Dual-chamber pacemaker upgraded to ICD [...] Meals., Disp: , Rfl: ? ? Cascara Joqvzpq-Wreri-Qev Lax ([facility] COLON CLEANSER PO), Take 1 tabletby mouth [...] times aday., Disp: , Rfl: ? ? [place]-3 Fatty Acids (FISH OIL PO), Take 2,400 [...] Coronary artery disease of bypass graft of conf[place] gosh[place] heart with stableangina pectoris (CMS/HCC) - Primary Overview 10/12/16 [facility]: Significant stenosis in the SVG to OM2/3 treated with EMANUEL.Moderate lesion distal to the MONROY to the LAD 50-70% by Dr. Silva @ [facility] 12/09/14 [facility]: 1/3 grafts occluded, BMS [...] 20 MG tablet SSS (sick sinus syndrome) ([facility]) Overview 03/16/20 Upgrade of his dual-chamber pacemaker to [facility] dual-chamber ICD Relevant Medications carvedilol (COREG) 25 [...] me with any questions. Mansoor Silva MD, [facility] Office: [facility] [place] [address] 03/17/21 Mansoor Silva MD ECG ORDERABLES Final Result documented in this encounter Visit Diagnoses Diagnosis Coronary artery disease of bypass graft of confed[place] gosh[place] heart with stable angina pectoris- Primary Essential hypertension Unspecified essential hypertension Hyperlipidemia LDL goal <70 Other and unspecified hyperlipidemia Hypothyroidism (acquired) Unspecified hypothyroidism SSS (sick sinus syndrome) Sinoatrial node dysfunction documented in this encounter Care Teams Independent Freight Agent Relationship Specialty Start Date End Date Allyson Avery APRN PCP - General Internal Medicine 03/15/21 07/21/23 documented as of this encounter
--- OUTSIDE RECORDS SUMMARY | 2024-08-03 10:35 | XMS_ITS | Encounter Summary ---
Author Organization [facility]atives Address [address] [place] [address] Care Team Providers Care Filleter Name Role Phone Karlene Avery APRN Primary Care Provider + [phone] Encounter Details Date Type Department Care Team (Late st Contact Info) Description 03/23/2020 Transcribed Document [facility] [place] [address] [place] [address] ProviderTatiana MD [address] [place] [address] Social History Tobacco Use Types Packs/Day Years Used Date Smoking Tobacco: Never Assessed Sex and Gender Information Value Date Recorded Sex Assigned at Not on file Legal Sex Male 5:33 PM CDT Gender Identity Not on file Sexual Orientation Not on file documented as of this encounter Miscellaneous Notes * Cerner Conversion Note - Tatiana Polanco MD - 03/23/2020 5:56 PM CDT [facility] [place] [address] PAT MENCHACA :1940 Visit Time:03/23/2020 Your Visit Summary Your Care Team Admitting Physician - DUANE JIMENEZ MD-CAR Attending Physician - DUANE JIMENEZ MD-CAR Primary Care Physician - KARLENE AVERY APRN-[facility] Referring Physician - DUANE JIMENEZ MD-CAR [...] When In 12 days 04/04/2020 EDT Where: [address] [place] [address] [place] [address]- Business (1) Medications What How Much When [...] you are awake and alert. ??? Take ilws-hxb-uqisvxm and prescription medicines only as told by [...] 06/09/2014 Document Revised: 01/21/2017 Document Reviewed: 12/08/2016 [employer] Interactive Patient Education ?? 2020 [employer] Pacemaker Implantation, Adult, Care After This [...] these instructions at home: Medicines ??? Take yqvc-ksh-ppumcop and prescription medicines only as told by [...] 03/08/2006 Document Revised: 08/19/2019 Document Reviewed: 05/31/2017 [employer] Interactive Patient Education ?? 2020 [employer] Fractured Pacemaker Lead Replacement The most [...] including vitamins, herbs, eye drops, creams, and uduf-ors-jtqpgyv medicines. ??? Any problems you or family [...] 09/18/2006 Document Revised: 09/08/2019 Document Reviewed: 07/09/2017 [employer]er Interactive Patient Education ?? 2020 [employer] Emergency Awareness and Preventative Care STROKE [...] Assistance with quitting is available by contacting 4-117-FTBBNOW. This is a free resource providing counseling, support, and referral. Or you may contact your personal physician. [place] Suicide Prevention Lifeline: The National Suicide Prevention [...] was given the opportunity to ask questions. Patient/Sign Language Interpreter Name: Patient/Sign Language Interpreter Signature: Relationship to Patient: Clinician/Hospital Sign Language Interpreter Signature: Date: documented in this encounter Plan of Treatment Not on file documented as of this encounter Visit Diagnoses Not on filedocumented in this encounter Care Teams Filleter Relationship Specialty Start Date End Date Karlene Avery APRN [address] [phone] PCP - General Nurse Practitioner 02/06/23 documented as of this encounter
--- OUTSIDE RECORDS SUMMARY | 2024-08-03 10:35 | XMS_ITS | Encounter Summary ---
Author Organization [facility] Address [address] [place] [address] Care Team Providers Care Fundraising Specialist Name Role Phone Karlene Avery APRN Primary Care Provider + [phone] Encounter Details Date Type Department Care Team (Late st Contact Info) Description 03/17/2020 Transcribed Document [facility] [place] [address] [place] [address] ProviderTatiana MD [address] [place] [address] Social History Tobacco Use Types Packs/Day Years Used Date Smoking Tobacco: Never Assessed Sex and Gender Information Value Date Recorded Sex Assigned at Not on file Legal Sex Male 5:33 PM CDT Gender Identity Not on file Sexual Orientation Not on file documented as of this encounter Miscellaneous Notes * Cerner Conversion Note - Tatiana Polanco MD - 03/17/2020 10:05 AM CDT [facility] [place] [address] NIKOLAI MEET E :1940 Visit Time:03/14/2020 Your Visit Summary Your Care Team Admitting Physician - ROMAN NGUYEN MD-[place] GUILLERMO MD-[facility] PHY, UNKNOWN Attending Physician - ROMAN NGUYEN MD-[place] GUILLERMO MD-[facility] Primary Care Physician - KARLENE AVERY APRN-[facility] Referring Physician - SELF, REFERRED (REF), -UNK Your Diagnosis Atherosclerotic heart disease of [place] coronary artery without angina pectoris, Atherosclerotic heart disease of [place] coronary artery without angina pectoris Elevated troponin [...] EDT Comments 03/30 3pm Where: [address] [place] [address]- Business (1) Follow Up with KARLENE AVERY APRN-FAM When Within 1 week Where: [address] [place] [address]- Medications What How Much When Instructions Next Dose acetaminophen (Tylenol 325 mg oral tablet) 2 Tablet(s) Oral Every 4 Hours as needed for Pain (Mild 1-3) carvedilol (Coreg 25 mg oral tablet) 1 Tablet(s) Oral Two Times A Day Pickup at [facility] lisinopril (lisinopril 20 mg oral tablet) 1 Tablet(s) Oral Every Day This replaces Lisinopril/ HCTZ. Pickup at [facility] allopurinol (allopurinol 100 mg oral tablet) [...] 2 Capsule(s) Oral Every Day Pharmacy Information [facility]: [address] [place], [place] [id number] [phone] Take your medications faithfully. Do NOT skip [...] these instructions at home: Medicines ??? Take hcid-dga-dxihgla and prescription medicines only as told by [...] and water are not available, use hand clinical trial coordinator. ? Change your dressing as told by [...] your chest for several days. ??? Take kcym-haw-afzhika and prescription medicines only as told by [...] 05/13/2013 Document Revised: 07/20/2019 Document Reviewed: 07/20/2019 Com[employer]IA Interactive Patient Education ?? 2020 [employer]. lisinopril (lyse [place] pril) Prinivil, Qbrelis, [...] have an allergic reaction if you are -[place]. Call your doctor at once if you [...] may report side effects to FDA at 8-399-FAK-4726. What other drugs will affect lisinopril? Tell [...] drugs may affect lisinopril, including prescription and gucm-mwm-ideelna medicines, vitamins, and herbal products. Not all [...] to ensure that the information provided by [employer]. ('[employer]') is accurate, up-to-date, and complete, but no guarantee is made to that effect. Drug information contained herein may be time sensitive. [employer] information has been compiled for use by healthcare practitioners and consumers in the [place] and therefore [employer] does not warrant that uses outside of the [place] are appropriate, unless specifically indicated otherwise. LikeLists drug information does not endorse drugs, diagnose patients or recommend therapy. LikeLists drug information is an informational resource designed [...] effective or appropriate for any given patient. [employer] does not assume any responsibility for any aspect of healthcare administered with the aid of information [employer] provides. The information contained herein is not intended to cover all possible uses, directions, precautions, warnings, drug interactions, allergic reactions, or adverse effects. If you have questions about the drugs you are taking, check with your doctor, nurse or pharmacist. Copyright 1400-9723 [employer]. Version: 15.03. Revision Date: 06/23/2019. carvedilol (BRIAN ve dil ole) Lisa, Coreg MAYDA What is the most important [...] may report side effects to FDA at 2-353-LTY-6166. What other drugs will affect carvedilol? Sometimes it is not safe to use certain medications at the same time. Some drugs can affect your blood levels of other drugs you take, which may increase side effects or make the medications less effective. Other drugs may affect carvedilol, including prescription and qdnl-hka-mfvcxvj medicines, vitamins, and herbal products. Tell your [...] to ensure that the information provided by [employer]. ('[employer]') is accurate, up-to-date, and complete, but no guarantee is made to that effect. Drug information contained herein may be time sensitive. [employer] information has been compiled for use by healthcare practitioners and consumers in the [place] and therefore [employer] does not warrant that uses outside of the [place] are appropriate, unless specifically indicated otherwise. [employer]'s drug information does not endorse drugs, diagnose patients or recommend therapy. LikeLists drug information is an informational resource designed [...] effective or appropriate for any given patient. [employer] does not assume any responsibility for any aspect of healthcare administered with the aid of information [employer] provides. The information contained herein is not intended to cover all possible uses, directions, precautions, warnings, drug interactions, allergic reactions, or adverse effects. If you have questions about the drugs you are taking, check with your doctor, nurse or pharmacist. Copyright 5485-1123 [employer]. Version: 16.01. Revision Date: 12/25/2018. Emergency Awareness [...] Assistance with quitting is available by contacting 0-917-XQCL-NOW. This is a free resource providing counseling, [...] range between ( 0.0 and 7.0 ) [place] #: 0.41 K/uL -- Normal range between ( 0.16 and 1.00 ) [place] #: 0.16 x10(3)/uL -- Normal range between ( 0.00 and 0.80 ) [place] %: 10.1 % -- Normal range between [...] ) Urine Bilirubin Dipstick: Negative Urine Specific [place]: 1.021 -- Normal range between ( 1.005 and 1.030 ) Urine Type.: [facility] General Chemistry 03/16/2020 0:17 AM Creatinine Level: [...] was given the opportunity to ask questions. Patient/Night Filler Name: Patient/Night Filler Signature: Relationship to Patient: Clinician/Hospital Night Filler Signature: Date: Electronically signed by Angel, [facility] Conversion Inventory Controller Tayo at 12/20/2022 12:09 PM CDT documented in this encounter Plan of Treatment Not on file documented as of this encounter Visit Diagnoses Not on filedocumented in this encounter Care Teams Fundraising Specialist Relationship Specialty Start Date End Date Karlene Avery APRN [address] [place] [address] PCP - General Nurse Practitioner 02/06/23 documented as of this encounter
--- OUTSIDE RECORDS SUMMARY | 2024-08-03 10:35 | XMS_ITS | Encounter Summary ---
Author Organization [facility] In [facility] Address [address] [place] [address] Care Team Providers Care Research Animal Facility Supervisor Name Role Phone Allyson Avery APRN Primary Care Provider [phone] Reason for Referral * Ultrasound (Routine) - Closed Specialty Diagnoses / Procedures Referred By Brandinac t Referred To Contact Diagnoses Cold extremities Procedures Ultrasound lower extremity arteries complete Allyson Avery APRN [address] [place] [phone] Phone: tel: fax: Referral ID Status Reason Start Date Expiration Date Visits Re quested Visits Authorized [id number] Closed 01/15/2023 07/14/2023 1 1 Reason for Visit * Ultrasound (Routine) - Closed Specialty Diagnoses / Procedures Referred By Venancio milian Referred To Contact Diagnoses Cold extremities Procedures Ultrasound lower extremity arteries Allyson Daugherty APRN [address] [place] [address] Phone: tel: fax: Referral ID Status Reason Start Date Expiration Date Visits Re quested Visits Authorized [id number] Closed 01/15/2023 07/14/2023 1 1 Encounter Details Date Type Department Care Team (Latest Contact Info) Description 02/06/2023 2:00 PM EDT - 02/06/2023 11:59 PM EDT Hospital Encounter [facility] Ultrasound [address] [place] [address] Allyson Avery, PLAN CHECKER [address] [place] [phone] Cold extremities Discharge Disposition: Home or [...] FINDINGS: RIGHT LOWER EXTREMITY. ?Velocities cm/sec : MARKETING TEACHER: WNL SFA Mid: WNL SFA Dist: WNL POP: WNL PT: WNL PT Ankle: WNL DP distal: WNL VONNIE: NA Waveforms are triphasic ??. LEFT LOWER EXTREMITY. ?Velocities cm/sec : MARKETING TEACHER: WNL SFA Mid: WNL SFA Dist: WNL [...] FINDINGS: RIGHT LOWER EXTREMITY. Velocities cm/sec : MARKETING TEACHER: WNL SFA Mid: WNL SFA Dist: WNL POP: WNL PT: WNL PT Ankle: WNL DP distal: WNL VONNIE: NA Waveforms are triphasic . LEFT LOWER EXTREMITY. Velocities cm/sec : MARKETING TEACHER: WNL SFA Mid: WNL SFA Dist: WNL [...] extremities documented in this encounter Care Teams Research Animal Facility Supervisor Relationship Specialty Start Date End Date Allyson Avery APRN [address] [facility] [address] [place] [phone] PCP - General Nurse Practitioner 02/06/23 documented as of this encounter
--- OUTSIDE RECORDS SUMMARY | 2024-08-03 10:35 | XMS_ITS | Encounter Summary ---
Author Organization [facility] [employer] Address [address] [place] [address] Care Team Providers Care Pediatric Acute Care Unit Nurse Name Role Phone Allyson Avery APRN Primary Care Provider + [phone] Encounter Details Date Type Department Care Team (Late st Contact Info) Description 03/23/2020 Transcribed Document [facility] Family Medicine [address] [place] [address] ProviderTatiana MD [address] [place] [address] [id number] Social History Tobacco Use Types Packs/Day Years Used Date Smoking Tobacco: Never Assessed Sex and Gender Information Value Date Recorded Sex Assigned at Not on file Legal Sex Male 5:33 PM CDT Gender Identity Not on file Sexual Orientation Not on file documented as of this encounter Miscellaneous Notes * Cerner Conversion Note - Historical ProviderMD - 03/23/2020 3:21 PM CDT Pre Procedure Adult Entered On: 03/23/2020 15:28 EDT Performed On: 03/23/2020 15:21 EDT by JACE WOOD RN Height and Weight, Clinical Dosing Height Source : Measured Height Entry Format : [place] Height, Feet : 5 ft(Converted to: 152 cm, 60 Inch) Height, Inches : 9 Inch(Converted to: 0 ft 9 Inch, 22.86 cm) Clinical Height : 175.26 cm Weight Source : Standing scale Weight Entry Format : [place] Clinical Dosing Weight : 76.36 kg Weight, Pounds : 168 lb Body Surface Area (BSA) : 1.92 m2 Body Mass Index : 24.9 kg/m2 ([place]) [place] Body Weight : 70 kg JACE WOOD RN - 03/23/2020 15:21 EDT Health Histories Smoking Status : Never (less than 100 in lifetime; none in last 30 days) Smokeless Tobacco Status : Never JACE WOOD RN - 03/23/2020 15:21 EDT Social History (As Of: 03/23/2020 15:28:39 EDT) Tobacco: Use in Last 12 Months: [...] 12/28/2015 05:03:16 EDT by Sara Mcdonald, Rn) Infectious Disease History Has the patient ever been tested for COVID-19? : No, Patient stated Does patient have symptoms of COVID-19? : No COVID19 Screening : No Experiencing Infectious Disease Symptoms : No symptoms Physical contact outside [place] in the last 30 days : No Infectious Disease History : Influenza Tuberculosis Symptoms : None JACE WOOD RN - 03/23/2020 15:21 EDT COVID19 PreProcedure Screening Is this an Emergent or Add on Procedure? : No Has patient been isolated since the test : Yes Exposed to COVID19 symptoms since test? : No JACE WOOD RN - 03/23/2020 15:21 EDT Anesthesia/Transfusion History Family History of Anesthesia Reaction : No prior transfusion(s) Transfusion History : Prior anesthesia without reaction Family History of Anesthesia Reaction : None JACE WOOD RN - 03/23/2020 15:21 EDT Functional Assessment Living Situation : Home Patient Lives With : Family member(s) Current Home Treatments : None JACE WOOD RN - 03/23/2020 15:21 EDT [place] Suicide Severity Rating Scale (C-SSRS) CSSRS Past Month Wish to be : No CSSRS Past Month Suicidal Thoughts : No CSSRS Lifetime Suicide Behavior : No Suicide Severity Rating Score : 0 Suicide Severity Rating : No Additional Care Required at this time JACE WOOD RN - 03/23/2020 15:21 EDT Psychosocial History Chronic/Terminal Illness w/Freq Visits : No Do You Have a History of the Following? : Patient denies history Currently in Unsafe Situation : No JACE WOOD RN - 03/23/2020 15:21 EDT Advance Directive Patient has Advance Directive *Q : Yes, Advance Directive not with the patient Advance Directive Type : Living will, Other: Health care surrogate Advance Directive Date : 06/23/2017 EDT Copy Advance Directive Verified/on Chart : No JACE WOOD RN - 03/23/2020 15:21 EDT Teaching/Learning Assessment Barriers To Learning : None evident Individuals Taught : Patient, Child Readiness to Learn : Cooperative Readiness to Learn : Demonstration, Explanation Learning Style Preferences Patient : Demonstration, Verbal explanation Learning Style Preferences Family : Demonstration, Verbal explanation JACE WOOD RN - 03/23/2020 15:21 EDT Education Topics, Periop Preadmission Perioperative Education [place] Falls : Verbalizes understanding Infection Control : Verbalizes understanding NPO Status/Directions : Verbalizes understanding Pain Management : Verbalizes understanding Postoperative Care Preparations : Verbalizes understanding Preprocedure Preparations : Verbalizes understanding Preprocedure Tests/Labs : Verbalizes understanding JACE WOOD RN - 03/23/2020 15:21 EDT General Info Legal Guardian : No Support Person/Patient Bread Dough Mixer : Yes Support Person/Pt Rep Name : Jesika Villar Contact Password : Melissa Support Person/Pt Rep Contact Information : [phone] Want Family/Rep/Phys Notified of Admit : No Emergency Contact #1 : Megan Emergency Contact #1 Emergency Contact #1 Relationship : daughter Emergency Contact #2 : z Emergency Contact #2 Phone Number : z Emergency Contact #2 Relationship : z Primary Language : Nigerien Preferred Communication Mode : Verbal Communication Barrier : None Plumbing Manager Needed : No JACE WOOD RN - 03/23/2020 15:21 EDT Sleep Apnea Risk Assmt Hx of [...] Sleep Apnea Risk Level Score : 4 JACE WOOD RN - 03/23/2020 15:21 EDT Arie Scale Arie Sensory Perception : No impairment Arie Moisture : Rarely moist Arie Activity : Walks frequently Arie Mobility : No limitation Arie Nutrition : Adequate Arie Friction and Shear : No apparent problem Arie Score : 22 JACE WOOD RN - 03/23/2020 15:21 EDT Pain Assessment Pain Assessment : Initial assessment Pain Scale Used : 0-10 Scale JACE WOOD RN - 03/23/2020 15:21 EDT Fall Risk Scales ABCs Fall Injury Risk Identification : Age ABC Fall Injury Risk : Moderate to high injury risk VELEZ Hx Falls Immediate/Within 3 Months : No Velez Secondary Diagnosis : Yes VELEZ Use of Ambulatory Aid : Bed rest/Nurse assist VELEZ IV Therapy or IV Access : No Velez Gait/Transferring : Weak Velez Mental Status : Oriented to own ability Velez Fall Risk Score : 25 VELEZ Fall Scale Risk Level : 25-45 Medium Risk [place] Fall Interventions : Adequate lighting, Assistive devices within reach, Bed in low position, Call device within reach, Fall prevention handout/education per facility policy, Hourly comfort/safety rounds, Non-slip footwear, Personal items within reach, Reinforced to call for assistance before getting out of bed, Room free of clutter/spills, Upper side-rails up, Wheels locked, Wires/Cords secured JACE WOOD RN - 03/23/2020 15:21 EDT Valuables and Belongings Valuables and Belongings : Clothing Clothing : Common streetwear Clothing Disposition : Bedside JACE WOOD RN - 03/23/2020 15:21 EDT Pain Scale Intensity : 0 JACE WOOD RN - 03/23/2020 15:21 EDT Image 4 - Images currently included in the form version of this document have not been included in the text rendition version of the form. documented in this encounter Plan of Treatment Not on file documented as of this encounter Visit Diagnoses Not on filedocumented in this encounter Care Teams Pediatric Acute Care Unit Nurse Relationship Specialty Start Date End Date Allyson Avery, YOKO [address] [address] PCP - General Nurse Practitioner 02/06/23 documented as of this encounter
--- OUTSIDE RECORDS SUMMARY | 2024-08-03 10:35 | XMS_ITS | Encounter Summary ---
Author Organization [facility] In [employer] Address [address] [place] [address] Care Team Providers Care Workers Compensation Claims Supervisor Name Role Phone Allyson Avery APRN Primary Care Provider + [phone] Encounter Details Date Type Department Care Team (Late st Contact Info) Description 03/23/2020 Transcribed Document [facility] [place] [address] [place] [address] ProviderTatiana MD [address] [place] [address] [phone] Social History Tobacco Use Types Packs/Day Years [...] you are awake and alert. ??? Take fedi-kva-bkomdsg and prescription medicines only as told by [...] 06/09/2014 Document Revised: 01/21/2017 Document Reviewed: 12/08/2016 [employer] Patient Education ? 2020 [employer] Procedures Pacemaker Implantation, Adult, Care After [...] these instructions at home: Medicines ??? Take rwnr-wdb-cxaolmt and prescription medicines only as told by [...] 03/08/2006 Document Revised: 08/19/2019 Document Reviewed: 05/31/2017 [employer] Patient Education ? 2020 [employer] Fractured Pacemaker Lead Replacement The most [...] including vitamins, herbs, eye drops, creams, and wfcd-dej-awdxpdd medicines. ??? Any problems you or family [...] 09/18/2006 Document Revised: 09/08/2019 Document Reviewed: 07/09/2017 [employer] Patient Education ? 2020 [employer] documented in this encounter Plan of Treatment Not on file documented as of this encounter Visit Diagnoses Not on filedocumented in this encounter Care Teams Workers Compensation Claims Supervisor Relationship Specialty Start Date End Date Allyson Avery APRN [address] [address] PCP - General Nurse Practitioner 02/06/23 documented as of this encounter
--- OUTSIDE RECORDS SUMMARY | 2024-08-03 10:35 | XMS_ITS | Encounter Summary ---
Author Organization [employer] Address [address] [place] [address] Care Team Providers Care Clearing Inspector Name Role Phone AveryAllyson al YOKO Primary Care Provider + [phone] Encounter Details Date Type Department Care Team (Late st Contact Info) Description 03/23/2020 Transcribed Document [facility] Family Medicine [address] [place] [address] ProviderTatiana MD [address] [place] [address] [phone] Social History Tobacco Use Types Packs/Day Years [...] - 03/23/2020 17:55 EDT Electronically signed by Angel [facility] Conversion Equipment Installation Professional Cerner at 12/20/2022 12:30 PM CDT documented in this encounter Plan of Treatment Not on file documented as of this encounter Visit Diagnoses Not on filedocumented in this encounter Care Teams Clearing Inspector Relationship Specialty Start Date End Date Allyson Avery, YOKO [address] [address] PCP - General Nurse Practitioner 02/06/23 documented as of this encounter
--- OUTSIDE RECORDS SUMMARY | 2024-08-03 10:35 | XMS_ITS | Encounter Summary ---
Author Organization [employer] Address [address] [place] [address] Care Team Providers Care Bill Of Lading Clerk Name Role Phone Allyson Avery APRN Primary Care Provider + [phone] Encounter Details Date Type Department Care Team (Late st Contact Info) Description 03/17/2020 Transcribed Document [facility] [place] [address] [place] [address] ProviderTatiana MD [address] [place] [address] [phone] Social History Tobacco Use Types Packs/Day Years Used Date Smoking Tobacco: Never Assessed Sex and Gender Information Value Date Recorded Sex Assigned at Not on file Legal Sex Male 5:33 PM CDT Gender Identity Not on file Sexual Orientation Not on file documented as of this encounter Miscellaneous Notes * Cerner Conversion Note - Historical ProviderMD - 03/17/2020 1:02 PM CDT Discharge Summary, PT Entered On: 03/17/2020 13:03 EDT Performed On: 03/17/2020 13:02 EDT by Derrek Newman Student-Physical Therapist Discharge Summary Discharge Summary Provider Notified : Nursing Reason for Discharge : Discharged from hospital Discharged to, Therapy : Home, independently Discharge Equipment, PT : None Derrek Newamn Student-Physical Therapist - 03/17/2020 13:02 EDT Discharge [...] ~5 lateral steps with Min A and GRAIN UNLOADER. Patient did not meet any of his penitentiary goals due to assistance required with all functional activities and impaired endurance tolerance. PT has reviewed and agrees with note. DERREK HEAD, PT - 03/17/2020 14:01 EDT Correction Goals Mobility/Bed Mobility LTG PT Grid Goal [...] Newman, Student-Physical Therapist - 03/17/2020 13:06 EDT Electronically signed by Angel [facility] Conversion Public Health Outreach Worker Cerner at 12/20/2022 12:26 PM CDT documented in this encounter Plan of Treatment Not on file documented as of this encounter Visit Diagnoses Not on filedocumented in this encounter Care Teams Bill Of Lading Clerk Relationship Specialty Start Date End Date Allyson Avery APRN [address] [address] [place] [address] PCP - General Nurse Practitioner 02/06/23 documented as of this encounter
--- OUTSIDE RECORDS SUMMARY | 2024-08-03 10:35 | XMS_ITS | Encounter Summary ---
Author Organization [facility] In [employer] Address [address] [place] [address] Care Team Providers Care Javascript Ui Developer Name Role Phone Allyson Avery APRN Primary Care Provider Encounter Details Date Type Department Care Team [...] on filedocumented in this encounter Care Teams Javascript Ui Developer Relationship Specialty Start Date End Date Allyson Avery APRN [address] [address] PCP - General Nurse Practitioner 02/06/23 documented as of this encounter
--- OUTSIDE RECORDS SUMMARY | 2024-08-03 10:35 | XMS_ITS | Encounter Summary ---
Author Organization [facility] Address [address] [place] [address] Care Team Providers Care Natural Developer Name Role Phone Allyson Avery APRN Primary Care Provider + [phone] Reason for Referral * Diagnostic Imaging (Routine) - Closed Specialty Diagnoses / Procedures Referred By Contac t Referred To Contact Diagnoses Coronary artery disease of bypass graft of [place] heart with stable angina pectoris HERNANDEZ (dyspnea on exertion) Procedures Adult Transthoracic Echo Complete W/ Cont if Necessary Per Protocol Mansoor Silva MD [address] [place] [address] Phone: tel: fax: [address] [address] Phone: tel: Referral ID Status Reason Start Date Expiration Date Visits Re quested Visits Authorized [id number] Closed 06/27/2021 06/27/2022 1 1 Reason for Visit * Diagnostic Imaging (Routine) - Closed Specialty Diagnoses / Procedures Referred By Contac t Referred To Contact Diagnoses Coronary artery disease of bypass graft of [place] heart with stable angina pectoris HERNANDEZ (dyspnea on exertion) Procedures Adult Transthoracic Echo Complete W/ Cont if Necessary Per Protocol Mansoor Silva MD [address] [place] [address] Phone: tel: fax: [facility] [address] [place] [address] Phone: tel: Referral ID Status Reason Start Date Expiration Date Visits Re quested Visits Authorized [id number] Closed 06/27/2021 06/27/2022 1 1 Encounter Details Date Type Department Care Team (Late st Contact Info) Description 06/29/2021 1:00 PM EDT - 06/29/2021 11:59 PM EDT Hospital Encounter [facility] [address] [facility] [address]rd FLO[address] [place] [id number] Mansoor Sliva MD [address] [facility] [address] [place] [address] Coronary artery disease of bypass graft of [place] heart with stable angina pectoris; HERNANDEZ (dyspnea [...] Day. 360 tablet 3 06/12/2021 07/19/2022 [place] Dtrzfyk-Isaut-Ira Lax (BIOHM COLON CLEANSER PO) Take 1 [...] mouth Daily. Taking 10 MG daily. 01/22/2024 [place]-3 Fatty Acids (FISH OIL PO) Take 2,400 [...] Office Visit [facility] [address] [facility] [address] [place] [id number] Mansoor Silva MD [address] [place], [place] [id number] 01/21/2025 2:30 PM EDT Office Visit [facility] [address] [facility] [address] [place] [address] Monica Quintero, DNP, SCHOOL SOCIAL WORKER [address] [place] [address] documented as of this encounter Procedures Procedure Name Priority Date/Time Associated Diagnosis Comments ECHO COMPLETE W/ DOPPLER AND COLOR FLOW Routine 06/29/2021 1:55 PM EDT Coronary artery disease of bypass graft of [place] heart with stable angina pectoris HERNANDEZ (dyspnea on exertion) documented in this encounter Results * ECHO COMPLETE W/ DOPPLER AND COLOR FLOW (06/29/2021 1:55 PM EDT) BSA 1.9 m^2 [facility] IVSd 0.83 cm [facility] LVIDd 5.0 cm [facility] LVIDs 3.9 cm [facility] LVPWd 0.98 cm [facility] IVS/LVPW 0.85 [facility] FS 22.3 % [facility] EDV(Teich) 117.6 ml [facility] ESV(Teich) 65.0 ml [facility] EF(Teich) 44.7 % [facility] EDV(cubed) 124.1 ml [facility] ESV(cubed[facility] 58.3 ml [facility] EF(cubed) 53.0 % [facility] LV mass(C)d 158.6 grams [facility] LV mass(C)dI 83.8 grams/m^2 [facility] SV(Teich) 52.6 ml [facility] SI(Teich) 27.8 ml/m^2 [facility] SV(cubed) 65.9 ml [facility] SI(cubed) 34.8 ml/m^2 [facility] Ao root diam 3.1 cm [facility] Ao root area 7.7 cm^2 [facility] LA dimension (2D) 4.9 [facility] LA/Ao 1.6 [facility] LVOT diam 2.0 cm [facility] LVOT area 3.1 cm^2 [facility] LVOT area(traced) 3.1 cm^2 [facility] LAd major 6.2 cm [facility] LVLd ap4 7.6 cm [facility] EDV(MOD-sp4) 132.0 ml [facility] LVLs ap4 7.1 cm [facility] ESV(MOD-sp4) 60.6 ml [facility] EF(MOD-sp4) 54.1 % [facility] LVLd ap2 7.7 cm [facility] EDV(MOD-sp2) 146.0 ml [facility] LVLs ap2 7.0 cm [facility] ESV(MOD-sp2) 81.0 ml [facility] EF(MOD-sp2) 44.5 % [facility] LA ESV (BP) 89.6 ml [facility] EF(MOD-bp) 38 % [facility] SV(MOD-sp4) 71.4 ml [facility] SVi(MOD-SP4) 37.7 ml/m^2 [facility] SV(MOD-sp2) 65.0 ml [facility] SVi(MOD-SP2) 34.3 ml/m^2 [facility] Ao root area (BSA corrected) 1.7 [facility] LV Cobb Vol (BSA corrected) 69.7 ml/m^2 [facility] LV Sys Vol (BSA corrected) 32.0 ml/m^2 [facility] TAPSE (>1.6) 1.2 cm [facility] LA ESV Index (BP) 47.3 ml/m^2 [facility] MV E max armando 91.7 cm/sec [facility] MV A max armando 79.7 cm/sec [facility] MV E/A 1.2 [facility] MV V2 max 80.5 cm/sec [facility] MV max PG 2.6 mmHg [facility] MV V2 mean 66.6 cm/sec [facility] MV mean PG 1.8 mmHg [facility] MV V2 VTI 22.9 cm [facility] MVA(VTI) 2.1 cm^2 [facility] MV P1/2t max armando 88.2 cm/sec [facility] MV P1/2t 102.5 msec [facility] MVA(P1/2t) 2.1 cm^2 [facility] MV dec slope 252.2 cm/sec^2 [facility] MV dec time 0.3 sec [facility] Ao pk armando 163.7 cm/sec [facility] Ao max PG 11.0 mmHg [facility] Ao max PG (full) 8.6 mmHg [facility] Ao V2 mean 110.2 cm/sec [facility] Ao mean PG 5.7 mmHg [facility] Ao mean PG (full) 4.3 mmHg [facility] Ao V2 VTI 30.6 cm [facility] KATHARINE(I,A) 1.5 cm^2 [facility] KATHARINE(I,D) 1.5 cm^2 [facility] KATHARINE(V,A) 1.5 cm^2 [facility] KATHARINE(V,D) 1.5 cm^2 [facility] LV V1 max PG 2.4 mmHg [facility] LV V1 mean PG 1.4 mmHg [facility] LV V1 max 78.0 cm/sec [facility] LV V1 mean 55.3 cm/sec [facility] LV V1 VTI 15.2 cm [facility] SV(Ao) 235.1 ml [facility] SI(Ao) 124.1 ml/m^2 [facility] SV(LVOT) 47.4 ml [facility] SI(LVOT) 25.1 ml/m^2 [facility] PA acc time 0.15 sec [facility] PI end-d armando 185.8 cm/sec [facility] TR max armando 260.8 cm/sec [facility] TR max PG 27.0 mmHg [facility] RVSP(TR) 35 mmHg [facility] RAP systole 8 [facility] pr(Accel) 10.9 mmHg [facility] MVA P1/2T LCG 2.5 cm^2 [facility] RV Base 3.7 cm [facility] RV Mid 2.3 cm [facility] RV S' 7.3 cm/sec [facility] Lat E/e' 11.4 [facility] Med E/e' 22.8 [facility] Lat Peak E' Armando 8.1 cm/sec [facility] Med Peak E' Armando 4.0 cm/sec [facility] CV ECHO MORE - BZI_BMI 24.1 kilograms/ m^2 [facility] CV ECHO MORE - BSA([place]) 1.9 m^2 [facility] CV ECHO MORE - BZI_METRIC_WEI GHT 73.9 kg [facility] CV ECHO MORE - BZI_METRIC_HEI GHT 175.3 cm [facility] Avg E/e' ratio 15.16 [facility] Target HR (85%) 118 bpm [facility] Max. Pred. HR (100%) 139 bpm [facility] CV VAS BP RIGHT ARM 144/93 mmHg [facility] Anatomical Region Laterality Modality Ultrasound [...] Coronary artery disease of bypass graft of [place] heart with stable angina pectoris HERNANDEZ (dyspnea on exertion) Other dyspnea and respiratory abnormality documented in this encounter Care Teams Natural Developer Relationship Specialty Start Date End Date Allyson Avery APRN PCP - General Internal Medicine 03/15/21 07/21/23 documented as of this encounter
--- OUTSIDE RECORDS SUMMARY | 2024-08-03 10:35 | XMS_ITS | Encounter Summary ---
Author Organization [facility] In [facility]atives Address [address] [place] [address] Care Team Providers Care Avionic Technician Name Role Phone Allsyon Avery APRN Primary Care Provider [phone] Reason for Referral * Ultrasound (Routine) - Closed Specialty Diagnoses / Procedures Referred By Venancio milian Referred To Contact Diagnoses Cold extremities Procedures Ultrasound lower extremity arteries complete Allyson Avery APRN [address] [address] Phone: tel: fax: Referral ID Status Reason Start Date Expiration Date Visits Re quested Visits Authorized [id number] Closed 01/15/2023 07/14/2023 1 1 Encounter Details Date Type Department Care Team (Late st Contact Info) Description 01/15/2023 Outside Orders [facility] Central Scheduling 1 [place] [address] Allyson Avery APRN [address] [place] [address] Cold extremities (Primary Dx) Social [...] FINDINGS: RIGHT LOWER EXTREMITY. ?Velocities cm/sec : BODY COVERER: WNL SFA Mid: WNL SFA Dist: WNL POP: WNL PT: WNL PT Ankle: WNL DP distal: WNL VONNIE: NA Waveforms are triphasic ??. LEFT LOWER EXTREMITY. ?Velocities cm/sec : BODY COVERER: WNL SFA Mid: WNL SFA Dist: WNL [...] FINDINGS: RIGHT LOWER EXTREMITY. Velocities cm/sec : BODY COVERER: WNL SFA Mid: WNL SFA Dist: WNL POP: WNL PT: WNL PT Ankle: WNL DP distal: WNL VONNIE: NA Waveforms are triphasic . LEFT LOWER EXTREMITY. Velocities cm/sec : BODY COVERER: WNL SFA Mid: WNL SFA Dist: WNL [...] extremities documented in this encounter Care Teams Avionic Technician Relationship Specialty Start Date End Date Allyson Avery, YOKO [address] [address] PCP - General Nurse Practitioner 02/06/23 documented as of this encounter
--- OUTSIDE RECORDS SUMMARY | 2024-08-03 10:35 | XMS_ITS | Encounter Summary ---
[facility] Address [address] [place] [address] Care Team Providers Care Search Coordinator Name Role Phone AveryAllyson la YOKO Primary Care Provider + [phone] Encounter Details Date Type Department Care Team (Late st Contact Info) Description 06/16/2021 Telephone [facility] [address] [address] Mansoor Silva MD 1720 [facility] [address] [place] [id number] Social History Tobacco Use Types Packs/Day Years [...] 2:15 PM EDT Office Visit [facility] 1720 [facility] 400 [place] [address] Mansoor Silva MD 1720 [facility] 400 [place] [address] 01/21/2025 2:30 PM EDT Office Visit [facility] NE[facility] [address] [facility] 201 [place] [id number] Monica Quintero, DNP, AREA MANAGER [address] [facility] 202 [place] [address] documented as of this encounter Visit Diagnoses Not on filedocumented in this encounter Care Teams Search Coordinator Relationship Specialty Start Date End Date Allyson Avery, YOKO PCP - General Internal Medicine 03/15/21 07/21/23 documented as of this encounter
--- OUTSIDE RECORDS SUMMARY | 2024-08-03 10:35 | XMS_ITS | Encounter Summary ---
Author Organization [facility] Init iatives Address [address] [facility] [place] [address] Care Team Providers Care Tire Molder Name Role Phone Unavailable Primary Care Provider Unavailabl e Encounter Details Date Type Department Care Team (Late st Contact Info) Description 03/23/2020 Historic Encounter [facility] [address] [place] [address] Provider, [facility] Historical Social History Tobacco Use Types Packs/Day [...] 3:45 PM EDT 03/23/2020 7:57 PM EDT [facility] Historical Provider LAB BLOOD ORDERABLES Fi nal Result [facility] [address] [phone] documented in this encounter Visit Diagnoses Not on filedocumented in this encounter
--- OUTSIDE RECORDS SUMMARY | 2024-08-03 10:35 | XMS_ITS | Encounter Summary ---
Author Organization [facility] In iatives Address [address] [place] [address] Care Team Providers Care Chocolate Coater Name Role Phone Allyson Avery APRN Primary Care Provider + [phone] Encounter Details Date Type Department Care Team (Late st Contact Info) Description 03/17/2020 Transcribed Document [facility] Family Medicine [address] [place] [address] ProviderTatiana MD [address] [place] [phone] Social History Tobacco Use Types Packs/Day Years [...] these instructions at home: Medicines ??? Take xrla-nue-qovbggh and prescription medicines only as told by [...] and water are not available, use hand sales account representative. ? Change your dressing as told by [...] your chest for several days. ??? Take zzzj-vhr-btuuimm and prescription medicines only as told by [...] 05/13/2013 Document Revised: 07/20/2019 Document Reviewed: 07/20/2019 [employer] Interactive Patient Education ? 2020 [employer] documented in this encounter Plan of Treatment Not on file documented as of this encounter Visit Diagnoses Not on filedocumented in this encounter Care Teams Chocolate Coater Relationship Specialty Start Date End Date Allyson Avery, FAMILY AND CONSUMER SCIENCE PROFESSOR [address] [address] PCP - General Nurse Practitioner 02/06/23 documented as of this encounter
--- OUTSIDE RECORDS SUMMARY | 2024-08-03 10:35 | XMS_ITS | Encounter Summary ---
Author Organization [facility] In [facility]atives Address [address] [place] [address] Care Team Providers Care Administrative Dietitian Name Role Phone Karlene Avery APRN Primary Care Provider + [phone] Encounter Details Date Type Department Care Team (Late st Contact Info) Description 03/23/2020 Transcribed Document [facility] Family Medicine [address] [place] [address] ProviderTatiana MD [address] [place] [address] Social History Tobacco Use Types Packs/Day Years Used Date Smoking Tobacco: Never Assessed Sex and Gender Information Value Date Recorded Sex Assigned at Not on file Legal Sex Male 5:33 PM CDT Gender Identity Not on file Sexual Orientation Not on file documented as of this encounter Miscellaneous Notes * Cerner Conversion Note - Tatiana Polanco MD - 03/23/2020 6:31 PM CDT [facility] [place] [address] PAT MENCHACA :1940 Visit Time:03/23/2020 Your Visit Summary Your Care Team Admitting Physician - DUANE JIMENEZ MD-CAR Attending Physician - DUANE JIMENEZ MD-CAR Primary Care Physician - KARLENE AVERY APRN-[facility] Referring Physician - DUANE JIMENEZ [...] When In 12 days 04/04/2020 EDT Where: [address] [place] [address] [place] [address]- Business (1) Medications What How [...] you are awake and alert. ??? Take tbgl-uqh-tapcvqt and prescription medicines only as told by [...] 06/09/2014 Document Revised: 01/21/2017 Document Reviewed: 12/08/2016 [employer] Interactive Patient Education ?? 2020 [employer] Pacemaker Implantation, Adult, Care After This [...] these instructions at home: Medicines ??? Take wqbv-qpy-elwizhm and prescription medicines only as told by [...] 03/08/2006 Document Revised: 08/19/2019 Document Reviewed: 05/31/2017 [employer] Interactive Patient Education ?? 2020 [employer] Fractured Pacemaker Lead Replacement The most [...] including vitamins, herbs, eye drops, creams, and kmbe-ooo-abujaqd medicines. ??? Any problems you or family [...] 09/18/2006 Document Revised: 09/08/2019 Document Reviewed: 07/09/2017 [employer] Interactive Patient Education ?? 2020 [employer] Emergency Awareness and Preventative Care STROKE [...] Assistance with quitting is available by contacting 8-688-ZCHUNOW. This is a free resource providing counseling, support, and referral. Or you may contact your personal physician. [place] Suicide Prevention Lifeline: The National Suicide Prevention [...] was given the opportunity to ask questions. Patient/Importer Or Exporter Name: Patient/Importer Or Exporter Signature: Relationship to Patient: Clinician/Hospital Importer Or Exporter Signature: Date: documented in this encounter Plan of Treatment Not on file documented as of this encounter Visit Diagnoses Not on filedocumented in this encounter Care Teams Administrative Dietitian Relationship Specialty Start Date End Date Karlene Avery APRN [address] [phone] PCP - General Nurse Practitioner 02/06/23 documented as of this encounter
--- OUTSIDE RECORDS SUMMARY | 2024-08-03 10:35 | XMS_ITS | Encounter Summary ---
Author Organization [facility] In iatives Address [address] [place] [address] Care Team Providers Care Van Owner Operator Name Role Phone Unavailable Primary Care Provider Gillian e Encounter Details Date Type Department Care Team (Late st Contact Info) Description 03/23/2020 Historic Encounter [address] [address] ProviderBelle Historical Social History Tobacco [...] - 146 mmol/L 03/23/2020 7:49 PM EDT [facility] Potassium POC 4.1 3.5 - 4.9 mmol/L 03/23/2020 7:49 PM EDT [facility] Chloride POC 100 98 - 109 mmol/L 03/23/2020 7:49 PM EDT [facility] CO2 POC 28.0 24.0 - 29.0 mmol/L 03/23/2020 7:49 PM EDT [facility] Anion Gap POC 18.0 10.0 - 20.0 mmol/L 03/23/2020 7:49 PM EDT [facility] Ca Ionized POC 1.26 1.12 - 1.32 mmol/L 03/23/2020 7:49 PM EDT [facility] Glucose POC 89 70 - 105 mg/dL 03/23/2020 7:49 PM EDT [facility] BUN POC 15 8 - 26 mg/dL 03/23/2020 7:49 PM EDT [facility] Creatinine POC 0.9 0.6 - 1.3 mg/dL 03/23/2020 7:49 PM EDT [facility] eGFR 98 >=60 mL/min/1. 73m2 03/23/2020 8:00 PM EDT [facility] eGFR NonAfrican 81 >=60 mL/min/1. 73m2 03/23/2020 8:00 PM EDT [facility] Hemoglobin POC 13.3 12.0 - 17.0 Gram/dL 03/23/2020 7:49 PM EDT [facility] Hematocrit POC 39.0 38.0 - 51.0 % 03/23/2020 7:49 PM EDT [facility] Wellness Consultant [id number] 03/23/2020 7:49 PM EDT [facility] Device SN [id number] 03/23/2020 7:49 PM EDT [facility] Blood 03/23/2020 3:49 PM EDT 03/23/2020 8:00 PM EDT Sle Historical Provider POINT OF CARE TEST ALEX VILLATORO Final Result Performing Organization Address City/State/[facility] Co de Phone Number [facility] [address] [phone] documented in this encounter Visit Diagnoses Not on filedocumented in this encounter
--- OUTSIDE RECORDS SUMMARY | 2024-08-03 10:35 | XMS_ITS | Encounter Summary ---
Author Organization [facility] Address [address] [place] [address] Care Team Providers Care Electronic Imager Name Role Phone Allyson Avery YOKO Primary Care Provider + [phone] Encounter Details Date Type Department Care Team (Late st Contact Info) Description 03/17/2020 Transcribed Document [facility] 1 [place] [address] Jf Gallagher MD [address] [place] [address] [address] [place] [address] Social History Tobacco Use Types Packs/Day Years [...] None Author: JF GALLAGHER MD-INT Subjective PCP: [facility] DOA: 03/13/2020 DOD: 03/17/2020 HPI: 79 year-old gentleman admitted to the hospital with a near syncopal episode and possibly V. tach CODE STATUS: Modified code as documented in the chart intubation and full treatment but no ACLS CONSULTS: Cardiology, [facility] WORKUP / PROCEDURES: Cardiac Cath, performed by [...] the anterior wall. No mitral insufficiency noted. [place] CORONARY ARTERIOGRAPHY: Left coronary artery: Left main [...] advanced such that a new [employer] business systems lead model 7122Q, serial #[id number], could be actively fixed to the right [...] is a [employer] lead model 5076, serial #[id number], had a chronic capture threshold of 0.5 V with lead impedance of 400 ohms, sensed P-wave greater than [address] [employer] pulse generator model HG8577, serial #[id number], was attached to the leads. The pocket [...] Results Review Radiology Results (Last 48 hours) [id number] -- 03/14/2020 08:12 CR Chest 1 Vw [...] on filedocumented in this encounter Care Teams Electronic Imager Relationship Specialty Start Date End Date Allyson Avery APRN [address] [address] PCP - General Nurse Practitioner 02/06/23 documented as of this encounter
--- OUTSIDE RECORDS SUMMARY | 2024-08-03 10:35 | XMS_ITS | Encounter Summary ---
[facility] [address] [place] [address] Care Team Providers Care Formula Mixer Name Role Phone Allyson Avery APRN Primary Care Provider + [phone] Reason for Referral * Diagnostic Imaging (Routine) - Closed Specialty Diagnoses / Procedures Referred By Venancio t Referred To Contact Diagnoses Coronary artery disease of bypass graft of [place] heart with stable angina pectoris Hyperlipidemia LDL goal <70 Procedures Stress Test With Pet Myocardial Perfusion (Multi Study) Mansoor Silva MD [address] [place] [address] Phone: tel: fax: [address] [address] Phone: tel: Referral ID Status Reason Start Date Expiration Date Visits Re quested Visits Authorized [id number] Closed 06/19/2021 06/19/2022 1 1 Reason for Visit * Diagnostic Imaging (Routine) - Closed Specialty Diagnoses / Procedures Referred By Contcedric t Referred To Contact Diagnoses Coronary artery disease of bypass graft of [place] heart with stable angina pectoris Hyperlipidemia LDL goal <70 Procedures Stress Test With Pet Myocardial Perfusion (Multi Study) Mansoor Silva MD [address] [place] [address] Phone: tel: fax: [facility] [address] [place] [address] Phone: tel: Referral ID Status Reason Start Date Expiration Date Visits Re quested Visits Authorized [id number] Closed 06/19/2021 06/19/2022 1 1 Encounter Details Date Type Department Care Team (Late st Contact Info) Description 06/26/2021 12:17 PM EDT - 06/26/2021 11:59 PM EDT Hospital Encounter [facility] 17[address] [facility] 3rd floor [place] [id number] Mansoor Silva MD 1720 [facility] [address] [place] [address] Coronary artery disease of bypass graft of [place] heart with stable angina pectoris; Hyperlipidemia LDL [...] Day. 360 tablet 3 06/12/2021 07/19/2022 [place] Pgmwuvz-Vgnfy-Ozk Lax (BIOHM COLON CLEANSER PO) Take 1 [...] mouth Daily. Taking 10 MG daily. 01/22/2024 [place]-3 Fatty Acids (FISH OIL PO) Take 2,400 [...] 11/12/2024 2:15 PM EDT Office Visit [facility] [address] [facility] [address] [place] [address] Mansoor Silva MD 1720 [facility] [address] [place] [address] 01/21/2025 2:30 PM EDT Office Visit [facility] [address] [facility] [address] [place] [address] Monica Quintero, DNP, RECREATIONAL SPECIALIST [address] [facility] [address] [place] [address] documented as of this encounter Procedures Procedure Name Priority Date/Time Associated Diagnosis Comments STRESS TEST WITH PET MYOCARDIAL PERFUSION (MULTI STUDY) Routine 06/26/2021 12:46 PM EDT Coronary artery disease of bypass graft of [place] heart with stable angina pectoris Hyperlipidemia LDL [...] block Arrhythmias during recovery: occasional PVC's. Test Weight Loss Sales Consultant ECG [place] Mansoor Silva MD CV STRESS ORDERABLES Final Re sult documented in this encounter Visit Diagnoses Diagnosis Coronary artery disease of bypass graft of [place] heart with stable angina pectoris Hyperlipidemia LDL [...] dose documented in this encounter Care Teams Formula Mixer Relationship Specialty Start Date End Date Allyson Avery APRN PCP - General Internal Medicine 03/15/21 07/21/23 documented as of this encounter
--- OUTSIDE RECORDS SUMMARY | 2024-08-03 10:35 | XMS_ITS | Encounter Summary ---
[facility] Address [address] [place] [address] Care Team Providers Care Learning And Development Assistant Name Role Phone Allyson Avery APRN Primary Care Provider + [phone] Reason for Referral * Diagnostic Imaging (Routine) - Closed Specialty Diagnoses / Procedures Referred By Contac t Referred To Contact Diagnoses Coronary artery disease of bypass graft of [place] heart with stable angina pectoris HERNANDEZ (dyspnea on exertion) Procedures Adult Transthoracic Echo Complete W/ Cont if Necessary Per Protocol Mansoor Silva MD [address] [address] Phone: tel: fax: [address] [address] Phone: tel: Referral ID Status Reason Start Date Expiration Date Visits Re quested Visits Authorized [id number] Closed 06/27/2021 06/27/2022 1 1 Encounter Details Date Type Department Care Team (Late st Contact Info) Description 06/27/2021 Telephone [facility] CARDIOLOGY 1720 [facility] 400 [place] [address] Mansoor Silva MD 1720 [place] [address] Social History Tobacco Use Types Packs/Day Years [...] Visit [facility] 1720 [facility] 400 [place] [phone] Mansoor Silva MD 1720 [facility] 400 [place] [address] 01/21/2025 2:30 PM EDT Office Visit [facility] NEUROLOGY [address] [facility] 201 [place] [address] Monica Quintero, DNP, TRIPLE AIR VALVE TESTER [address] [place] [address] [place] [id number] documented as of this encounter Results * ECHO COMPLETE W/ DOPPLER AND COLOR FLOW (06/29/2021 1:55 PM EDT) BSA 1.9 m^2 [facility] IVSd 0.83 cm [facility] LVIDd 5.0 cm [facility] LVIDs 3.9 cm [facility] LVPWd 0.98 cm [facility] IVS/LVPW 0.85 [facility] FS 22.3 % [facility] EDV(Teich) 117.6 ml [facility] ESV(Teich) 65.0 ml [facility] EF(Teich) 44.7 % [facility] EDV(cubed) 124.1 ml [facility] ESV(cubed) 58.3 ml [facility] EF(cubed) 53.0 % [facility] LV mass(C)d 158.6 grams [facility] LV mass(C)dI 83.8 grams/m^2 [facility] SV(Teich) 52.6 ml [facility] SI(Teich) 27.8 ml/m^2 [facility] SV(cubed) 65.9 ml [facility] SI(cubed) 34.8 ml/m^2 [facility] Ao root diam 3.1 cm [facility] Ao root area 7.7 cm^2 [facility] LA dimension (2D) 4.9 [facility] LA/Ao 1.6 [facility] LVOT diam 2.0 cm [facility] LVOT area 3.1 cm^2 [facility] LVOT area(traced) 3.1 cm^2 [facility] LAd major 6.2 cm [facility] LVLd ap4 7.6 cm [facility] EDV(MOD-sp4) 132.0 [facility] LVLs ap4 7.1 cm [facility] ESV(MOD-sp4) 60.6 ml [facility] EF(MOD-sp4) 54.1 % [facility] LVLd ap2 7.7 cm [facility] EDV(MOD-sp2) 146.0 ml [facility] LVLs ap2 7.0 cm [facility] ESV(MOD-sp2) 81.0 ml [facility] EF(MOD-sp2) 44.5 % [facility] LA ESV (BP) 89.6 ml [facility] EF(MOD-bp) 38 % [facility] SV(MOD-sp4) 71.4 ml [facility] SVi(MOD-SP4) 37.7 ml/m^2 [facility] SV(MOD-sp2) 65.0 ml [facility] SVi(MOD-SP2) 34.3 ml/m^2 [facility] Ao root area (BSA corrected) 1.7 [facility] LV Cobb Vol (BSA corrected) 69.7 ml/m^2 [facility] LV Sys Vol (BSA corrected) 32.0 ml/m^2 [facility] TAPSE (>1.6) 1.2 cm [facility] LA ESV Index (BP) 47.3 ml/m^2 [facility] MV E max armando 91.7 cm/sec [facility] MV A max armando 79.7 cm/sec [facility] MV E/A 1.2 [facility] MV V2 max 80.5 cm/sec [facility] MV max PG 2.6 mmHg [facility] MV V2 mean 66.6 cm/sec [facility] MV mean PG 1.8 mmHg [facility] MV V2 VTI 22.9 cm [facility] MVA(VTI) 2.1 cm^2 [facility] MV P1/2t max armando 88.2 cm/sec [facility] MV P1/2t 102.5 msec [facility] MVA(P1/2t) 2.1 cm^2 [facility] MV dec slope 252.2 cm/sec^2 [facility] MV dec time 0.3 sec [facility] Ao pk armando 163.7 cm/sec [facility] Ao max PG 11.0 mmHg [facility] Ao max PG (full) 8.6 mmHg [facility] Ao V2 mean 110.2 cm/sec [facility] Ao mean PG 5.7 mmHg [facility] Ao mean PG (full) 4.3 mmHg [facility] Ao V2 VTI 30.6 cm [facility] KATHARINE(I,A) 1.5 cm^2 [facility] KATHARINE(I,D) 1.5 cm^2 [facility] KATHARINE(V,A) 1.5 cm^2 [facility] KATHARINE(V,D) 1.5 cm^2 [facility] LV V1 max PG 2.4 mmHg [facility] LV V1 mean PG 1.4 mmHg [facility] LV V1 max 78.0 cm/sec [facility] LV V1 mean 55.3 cm/sec [facility] LV V1 VTI 15.2 cm [facility] SV(Ao) 235.1 ml [facility] SI(Ao) 124.1 ml/m^2 [facility] SV(LVOT) 47.4 ml [facility] SI(LVOT) 25.1 ml/m^2 [facility] PA acc time 0.15 sec [facility] PI end-d armando 185.8 cm/sec [facility] TR max armando 260.8 cm/sec [facility] TR max PG 27.0 mmHg [facility] RVSP(TR) 35 mmHg [facility] RAP systole 8 mmHg [facility] PA pr(Accel) 10.9 mmHg [facility] MVA P1/2T LCG 2.5 cm^2 [facility] RV Base 3.7 cm [facility] RV Mid 2.3 cm [facility] RV S' 7.3 cm/sec [facility] Lat E/e' 11.4 [facility] Med E/e' 22.8 [facility] Lat Peak E' Armando 8.1 cm/sec [facility] Med Peak E' Armando 4.0 cm/sec [facility] CV ECHO MORE - BZI_BMI 24.1 kilograms/ m^2 [facility] CV ECHO MORE - BSA([place]) 1.9 m^2 [facility] CV ECHO MORE - BZI_METRIC_WEI GHT 73.9 kg [facility] CV ECHO MORE - BZI_METRIC_HEI GHT 175.3 cm [facility] Avg E/e' ratio 15.16 [facility] Target HR (85%) 118 bpm [facility] Max. Pred. HR (100%) 139 bpm [facility] CV VAS BP RIGHT ARM 144/93 mmHg [facility] Anatomical Region Laterality Modality Ultrasound 06/29/2021 [...] artery disease of bypass graft of [place] heart with stable angina pectoris- Primary Essential hypertension Unspecified essential hypertension HERNANDEZ (dyspnea on exertion) Other dyspnea and respiratory abnormality Coronary artery disease of bypass graft of [place] heart with stable angina pectoris HERNANDEZ (dyspnea on exertion) Other dyspnea and respiratory abnormality documented in this encounter Care Teams Learning And Development Assistant Relationship Specialty Start Date End Date Allyson Avery APRN PCP - General Internal Medicine 03/15/21 07/21/23 documented as of this encounter
--- OUTSIDE RECORDS SUMMARY | 2024-08-03 10:35 | XMS_ITS | Clinical Summary ---
Author Organization [facility] Address [address] [place] [address] Care Team Providers Care Podiatry Professor Name Role Phone Allyson Avery APRN Primary Care Provider + [phone] Social History Tobacco Use Types Packs/Day Years [...] Date Roque rded Speak language other than Macanese at home Not on file 09/19/2023 Want [...] 04/18/2032 04/18/2022 Insurance MEDICARE [place] [address] [address] [address] HEALTH CLAIMS Care Teams Podiatry Professor Relationship Specialty Start Date End Date Allyson Avery APRN [address] [address] PCP - General Nurse Practitioner 02/06/23
--- OUTSIDE RECORDS SUMMARY | 2024-08-03 10:35 | XMS_ITS | Encounter Summary ---
Author Organization [facility] Address [address] [place] [address] Care Team Providers Care Meat Inspector Name Role Phone Bennie Allyson APRN Primary Care Provider + [phone] Encounter Details Date Type Department Care Team (Late st Contact Info) Description 03/17/2020 Transcribed Document [facility] Family Medicine [address] [place] [address] ProviderTatiana MD [address] [place] [phone] Social History Tobacco Use Types Packs/Day Years Used Date Smoking Tobacco: Never Assessed Sex and Gender Information Value Date Recorded Sex Assigned at Not on file Legal Sex Male 5:33 PM CDT Gender Identity Not on file Sexual Orientation Not on file documented as of this encounter Miscellaneous Notes * Cerner Conversion Note - Historical ProviderMD - 03/17/2020 10:04 AM CDT Nursing Discharge Summary Entered On: 03/17/2020 10:05 EDT Performed On: 03/17/2020 10:04 EDT by GRANT CRAIN, draw press operator Documentation Discharge Date/Time : 03/17/2020 11:00 EDT Patient Disposition, General : Discharge Discharge To : Home with ambulatory/outpatient follow-up Mode Of Departure, General Discharge : Private vehicle IV Discontinued : Yes Personal Belongings With Patient : Yes Prescriptions Given to Patient : Called to pharmacy GRANT CRAIN, KHRIS - 03/17/2020 10:04 EDT documented in this encounter Plan of Treatment Not on file documented as of this encounter Visit Diagnoses Not on filedocumented in this encounter Care Teams Meat Inspector Relationship Specialty Start Date End Date Allyson Avery, YOKO [address] [address] PCP - General Nurse Practitioner 02/06/23 documented as of this encounter
--- OUTSIDE RECORDS SUMMARY | 2024-08-03 10:35 | XMS_ITS | Encounter Summary ---
[facility] [address] [place] [address] Care Team Providers Care Pipe Coverer Name Role Phone Allyson Avery YOKO Primary Care Provider + [phone] Reason for Visit * Reason Onset Date Comments Med Refill 06/12/2021 Encounter Details Date Type Department Care Team (Late Contact Info) Description 06/12/2021 Refill [facility] [address] [phone] Mansoor Silva MD 1720 [place] [address] Med Refill Social History Tobacco Use Types [...] Description 11/12/2024 2:15 PM EDT Office Visit [facility] 1720 [facility] 400 [place] [phone] Mansoor Silva MD 1720 [facility] 400 [place] [address] 01/21/2025 2:30 PM EDT Office Visit [facility] NEUR[facility] 610 [facility] 201 [place] [phone] Monica Quintero, DNP, RESOURCE TECHNICIAN [address] [facility] 202 [place] [address] documented as of this encounter Visit Diagnoses Not on filedocumented in this encounter Care Teams Pipe Coverer Relationship Specialty Start Date End Date Allyson Avery APRN PCP - General Internal Medicine 03/15/21 07/21/23 documented as of this encounter
--- OUTSIDE RECORDS SUMMARY | 2024-08-03 10:35 | XMS_ITS | Encounter Summary ---
[facility] Address [address] [place] [address] Care Team Providers Care Mass Spectroscopist Name Role Phone Allyson Avery YOKO Primary Care Provider + [phone] Reason for Visit * Reason Onset Date Comments Med Refill 03/24/2021 Encounter Details Date Type Department Care Team (Late Contact Info) Description 03/24/2021 Refill [facility] CARDIOLOGY [address] [phone] Mansoor Silva MD 1720 [place] [address] Med Refill Social History Tobacco Use Types [...] Visit [facility] CARDIOLOGY 1720 [facility] 400 [place] [phone] Mansoor Silva MD 1720 [facility] 400 [place] [address] 01/21/2025 2:30 PM EDT Office Visit [facility] NEUROLOG[facility] 610 [facility] 201 [place] [phone] Monica Quintero, DNP, ASBESTOS REMOVAL SUPERVISOR [address] [facility] 202 [place] [address] documented as of this encounter Visit Diagnoses Not on filedocumented in this encounter Care Teams Mass Spectroscopist Relationship Specialty Start Date End Date Allyson Avery APRN PCP - General Internal Medicine 03/15/21 07/21/23 documented as of this encounter
--- OUTSIDE RECORDS SUMMARY | 2024-08-03 10:35 | XMS_ITS | Encounter Summary ---
[facility] [address] [place] [address] Care Team Providers Care Tumbler Machine Operator Name Role Phone Allyson Avery APRN Primary Care Provider + [phone] Encounter Details Date Type Department Care Team (Late st Contact Info) Description 06/12/2021 Telephone [facility] CARDIOLOG[facility] [address] [address] Mansoor Silva MD 1720 [facility] 400 [place] [address] Social History Tobacco Use Types Packs/Day Years [...] Description 11/12/2024 2:15 PM EDT Office Visit [facility] C[facility] 1720 [facility] 400 [place] [phone] Mansoor Silva MD 1720 [facility] 400 [place] [address] 01/21/2025 2:30 PM EDT Office Visit [facility] NEUROLOG[facility] [address] [facility] 201 [place] [phone] Monica Quintero, DNP, NETWORKS SOFTWARE CONSULTANT [address] [facility] 202 [place] [address] documented as of this encounter Visit Diagnoses Not on filedocumented in this encounter Care Teams Tumbler Machine Operator Relationship Specialty Start Date End Date Allyson Avery APRN PCP - General Internal Medicine 03/15/21 07/21/23 documented as of this encounter
--- OUTSIDE RECORDS SUMMARY | 2024-08-03 10:35 | XMS_ITS | Referral Summary ---
Author Organization [facility] In iatives Address [address] [place] [address] Care Team Providers Care Shock Absorption Floor Layer Name Role Phone Allyson Avery APRN Primary Care Provider + [phone] Social History Tobacco Use Types Packs/Day Years [...] Date Roque rded Speak language other than Botswanan at home Not on file 09/19/2023 Want [...] on file Insurance MEDICARE [place] [address] HEALTH CLAIMS Care Teams Shock Absorption Floor Layer Relationship Specialty Start Date End Date Allyson Avery APRN [address] [address] PCP - General Nurse Practitioner 02/06/23
--- OUTSIDE RECORDS SUMMARY | 2024-08-03 10:35 | XMS_ITS | Encounter Summary ---
Author Organization [facility] In [facility]atives Address [address] [place] [address] Care Team Providers Care Automotive Tire Technician Name Role Phone Allyson Avery APRN Primary Care Provider + [phone] Encounter Details Date Type Department Care Team (Late st Contact Info) Description 03/17/2020 Transcribed Document [facility] [place] [address] [place] [address] ProviderTatiana MD [address] [place] [phone] Social History Tobacco Use Types Packs/Day Years [...] Associated Diagnoses: None Author: JOSHUA CHAPMAN APRN [facility] C[facility]IOLOG[facility] PROGRESS NOTE: DIAGNOSIS: 1. VT with presyncope/syncope 2. CAD SUBJECTIVE: no complaints Vitals Signs (last 24 hrs) Last Charted Minimum Maximum Temp 97 (MAR 17 05:34) 97 (MAR 17 05:34) 97.5 (MAR 16 18:00) Mon HR 75 (MAR 17 05:34) 73 (MAR 16 11:30) 76 (MAR 16 14:) Resp Rate 16 (MAR 17 05:34) 14 [...] kg (03/15/20 04:00:00) Routine Weight Entry Format: [place] (03/15/20 04:00:00) Routine Weight Source: Bed scale (03/15/20 04:00:00) Routine Weight, Ounces: 2 oz (03/15/20 04:00:00) Routine Weight, Pounds: 173 lb (03/15/20 04:00:00) [place] Body Weight: 77 kg (03/14/20 08:11:00) Intake [...] (MAR 16) 105 (MAR 15) 104 (MAR 13) 104 (MAR 13) CO2 28 (MAR 16) [...] echocardiogram revealed new wall motion abnormalities for [facility] today SSS s/p dual chamber PPM HTN HLP Ok to discharge from a cardiac perspective FU one week in clinic for wound check documented in this encounter Plan of Treatment Not on file documented as of this encounter Visit Diagnoses Not on filedocumented in this encounter Care Teams Automotive Tire Technician Relationship Specialty Start Date End Date Allyson Avery, BODY DESIGNER [address] [place] [phone] PCP - General Nurse Practitioner 02/06/23 documented as of this encounter
--- OUTSIDE RECORDS SUMMARY | 2024-08-03 10:36 | XMS_ITS | Encounter Summary ---
Author Organization [facility] In [facility]atives Address [address] [facility] [place] [address] Care Team Providers Care Stadium Attendant Name Role Phone Allyson Avery APRN Primary Care Provider + [phone] Encounter Details Date Type Department Care Team (Late st Contact Info) Description 03/14/2020 Transcribed Document [facility] [place] [place] Medicine [address] [place] [address] ProviderTatiana MD [address] [place] [address] Social History Tobacco Use Types Packs/Day [...] on filedocumented in this encounter Care Teams Stadium Attendant Relationship Specialty Start Date End Date Allyson Avery APRN [address] [address] PCP - General Nurse Practitioner 02/06/23 documented as of this encounter
--- OUTSIDE RECORDS SUMMARY | 2024-08-03 10:36 | XMS_ITS | Encounter Summary ---
Author Organization [facility] In iatives Address [address] [place] [address] Care Team Providers Care Ssis Developer Name Role Phone Allyson Avery APRN Primary Care Provider + [phone] Encounter Details Date Type Department Care Team (Late st Contact Info) Description 03/14/2020 Transcribed Document [facility] Family Medicine [address] [place] [address] ProviderTatiana MD [address] [place] [address] [phone] Social History Tobacco Use Types Packs/Day Years Used Date Smoking Tobacco: Never Assessed Sex and Gender Information Value Date Recorded Sex Assigned at Not on file Legal Sex Male 5:33 PM CDT Gender Identity Not on file Sexual Orientation Not on file documented as of this encounter Miscellaneous Notes * Cerner Conversion Note - Historical ProviderMD - 03/14/2020 9:24 AM CDT ED Event Note Entered On: 03/14/2020 9:24 EDT Performed On: 03/14/2020 9:24 EDT by Nancy Brandon RN ED Event Note ED Event Date/Time : 03/14/2020 9:24 EDT ED Description of Event : Pt report called to Nancy Hartman RN, RN - 03/14/2020 9:24 EDT Electronically signed by Angel [facility] Conversion Shipping Receiving Clerk Cerner at 12/20/2022 12:06 PM CDT documented in this encounter Plan of Treatment Not on file documented as of this encounter Visit Diagnoses Not on filedocumented in this encounter Care Teams Ssis Developer Relationship Specialty Start Date End Date Allyson Avery APRN [address] [place] [phone] PCP - General Nurse Practitioner 02/06/23 documented as of this encounter
--- OUTSIDE RECORDS SUMMARY | 2024-08-03 10:36 | XMS_ITS | Encounter Summary ---
Author Organization [facility] In iatives Address [address] [place] [address] Care Team Providers Care Tile Molder Hand Name Role Phone Allyson Avery APRN Primary Care Provider + [phone] Encounter Details Date Type Department Care Team (Late st Contact Info) Description 03/15/2020 Transcribed Document [facility] [facility] [place] [address] ProviderTatiana MD [address] [place] [address] [phone] Social History Tobacco Use Types Packs/Day Years Used Date Smoking Tobacco: Never Assessed Sex and Gender Information Value Date Recorded Sex Assigned at Not on file Legal Sex Male 5:33 PM CDT Gender Identity Not on file Sexual Orientation Not on file documented as of this encounter Miscellaneous Notes * Cerner Conversion Note - Historical ProviderMD - 03/15/2020 3:20 PM CDT Initial Discharge Planning Entered On: 03/15/2020 15:28 EDT Performed On: 03/15/2020 15:20 EDT by CINDY GOMES RN-Interpreter And Translator Initial Assessment I Previously Documented Living Environment [...] Advance Directive : 03/14/2020 EDT CINDY GOMES RN-Interpreter And Translator - 03/15/2020 15:20 EDT Initial Assessment II Sensory and Motor Deficits : None Current Home Treatments and Equipment : None CINDY GOMES RN-Interpreter And Translator - 03/15/2020 15:20 EDT Discharge Needs I Anticipated Discharge Date : 03/17/2020 EDT Anticipated Discharge To, CM : Home with family care Current Home Treatment/Equipment : Current Home Treatment/Equipment No qualifying data available. Post Acute/Home Treatments : None Documentation Status Complete : Yes CINDY GOMES RN-Interpreter And Translator - 03/15/2020 15:20 EDT Discharge Needs II Professional Skilled Services : Professional Skilled Services No qualifying data available. 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 Plan [facility] today. 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 His daughter Jesika is also involved in his care [phone]. Patient's PCP is MARCO Duncan. 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 No prior rehab stay, home health, oxygen or DME. Patient's family will transport on discharge. DCP: Anticipate patient will discharge home with family. CM will follow for any needed referrals. CINDY GOMES RN-Interpreter And Translator - 03/15/2020 15:20 EDT documented in this encounter Plan of Treatment Not on file documented as of this encounter Visit Diagnoses Not on filedocumented in this encounter Care Teams Tile Molder Hand Relationship Specialty Start Date End Date Allyson Avery APRN [address] [phone] PCP - General Nurse Practitioner 02/06/23 documented as of this encounter
--- OUTSIDE RECORDS SUMMARY | 2024-08-03 10:36 | XMS_ITS | Encounter Summary ---
Author Organization [facility] In iatives Address [address] [place] [address] Care Team Providers Care Public Space Attendant Name Role Phone Allyson Avery APRN Primary Care Provider + [phone] Encounter Details Date Type Department Care Team (Late st Contact Info) Description 03/13/2020 Transcribed Document [facility] [place] Family Medicine [address] [place] [address] ProviderTatiana MD [address] [place] [address] Social History Tobacco Use Types Packs/Day Years Used Date Smoking Tobacco: Never Assessed Sex and Gender Information Value Date Recorded Sex Assigned at Not on file Legal Sex Male 5:33 PM CDT Gender Identity Not on file Sexual Orientation Not on file documented as of this encounter Miscellaneous Notes * Cerner Conversion Note - Taitana ProviderMD - 03/13/2020 9:29 PM CDT ED [...] : None, Other: hearing Primary Language : Arabic Any Spiritual/Cultural Needs or Requests : No [...] (Last Updated: 12/28/2015 04:57:31 EDT by Sara Mcdonald Rn) Substance Abuse: Drug Use Hx: No. Use [...] by Sara Mcdonald, Rn) Cardiovascular ASMT, ED Cardiovascular Assessment WDL : WD with exceptions Cardiovascular Symptoms : Other: near syncope Chest Pain : No Kimi Mason RN - 03/13/2020 21:52 EDT Respiratory Respiratory Assessment WDL : WD Kimi Mason RN - 03/13/2020 21:52 EDT Gastrointestinal ED Gastrointestinal Assessment WDL : WD Kimi Mason RN - 03/13/2020 21:52 EDT Genitourinary Assessment, ED Genitourinary Assessment WDL : WD Kimi Mason RN - 03/13/2020 21:52 EDT Neurologic ASMT, ED Neurologic Assessment WDL : [facility] with exceptions Neurological Symptoms : Dizziness Kimi Mason RN - 03/13/2020 21:52 EDT Electronically signed by Angel [facility] Conversion Burial Agent Cerner at 12/20/2022 12:07 PM CDT documented in this encounter Plan of Treatment Not on file documented as of this encounter Visit Diagnoses Not on filedocumented in this encounter Care Teams Public Space Attendant Relationship Specialty Start Date End Date Allyson Avery, YOKO [address] [address] PCP - General Nurse Practitioner 02/06/23 documented as of this encounter
--- OUTSIDE RECORDS SUMMARY | 2024-08-03 10:36 | XMS_ITS | Encounter Summary ---
Author Organization [facility] In iatives Address [address] [place] [address] Care Team Providers Care Advertising Account Executive Name Role Phone Allyson Avery APRN Primary Care Provider + [phone] Encounter Details Date Type Department Care Team (Late st Contact Info) Description 03/15/[address] [facility] [place] Family Medicine [address] [place] [address] ProviderTatiana MD [address] [place] [address] [phone] Social History Tobacco Use Types Packs/Day Years [...] On: 03/15/2020 4:00 EDT by Rudolph Mcadams [facility] Unit Coord Height and Weight, Routine Routine Weight Source : Bed scale Routine Weight Entry Format : Gibson Routine Weight, Pounds : 173 lb Routine Weight, Ounces : 2 oz Routine Weight Calculation : 78.69 kg Height Source : Stated Height Entry Format : Gibson Height, Feet : 6 ft Height, Inches : 0 Inch Clinical Height : 182.88 cm Body Surface Area (BSA), Routine : 2.01 m2 Body Mass Index (BMI), Routine : 23.53 kg/m2 Rudolph Mcadams [facility] Unit Coord - 03/15/2020 4:32 EDT Electronically signed by Angel [facility] Conversion Supervisor Hardboard Cerner at 12/20/2022 12:10 PM CDT documented in this encounter Plan of Treatment Not on file documented as of this encounter Visit Diagnoses Not on filedocumented in this encounter Care Teams Advertising Account Executive Relationship Specialty Start Date End Date Allyson Avery, MINER PICK [address] [address] PCP - General Nurse Practitioner 02/06/23 documented as of this encounter
--- OUTSIDE RECORDS SUMMARY | 2024-08-03 10:36 | XMS_ITS | Encounter Summary ---
Author Organization [facility] [employer] In iatives Address [address] [place] [address] Care Team Providers Care Manager Relocation Name Role Phone Bennie Allyson BABCOCK Primary Care Provider + [phone] Encounter Details Date Type Department Care Team (Late st Contact Info) Description 03/17/2020 Transcribed Document [facility] [place] [facility] [place] [address] ProviderTatiana MD [address] [place] [address] [phone] Social History Tobacco Use Types Packs/Day Years Used Date Smoking Tobacco: Never Assessed Sex and Gender Information Value Date Recorded Sex Assigned at Not on file Legal Sex Male 5:33 PM CDT Gender Identity Not on file Sexual Orientation Not on file documented as of this encounter Miscellaneous Notes * Cerner Conversion Note - Historical ProviderMD - 03/17/2020 10:04 AM CDT Stroke/Warfarin Instructions Entered On: 03/17/2020 10:04 EDT Performed On: 03/17/2020 10:04 EDT by GRANT CRAIN RN Stroke/Warfarin Instructions Stroke/TIA Discharge Ins : N/A Warfarin Discharge Ins : N/A GRANT CRAIN RN - 03/17/2020 10:04 EDT Stroke/TIA Discharge Instructions My LDL Level: : LDL Level No qualifying data available. GRANT CRAIN RN - 03/17/2020 10:04 EDT Electronically signed by Angel [facility] Conversion Design Maintenance Engineer Cerner at 12/20/2022 12:06 PM CDT documented in this encounter Plan of Treatment Not on file documented as of this encounter Visit Diagnoses Not on filedocumented in this encounter Care Teams Manager Relocation Relationship Specialty Start Date End Date Allyson Avery, SOCIAL MEDIA CAMPAIGN MANAGER [address] [address] PCP - General Nurse Practitioner 02/06/23 documented as of this encounter
--- OUTSIDE RECORDS SUMMARY | 2024-08-03 10:36 | XMS_ITS | Encounter Summary ---
Author Organization [facility] [employer] In iatives Address [address] [place] [address] Care Team Providers Care Certified Lactation Counselor Name Role Phone Allyson Avery APRN Primary Care Provider + [phone] Encounter Details Date Type Department Care Team (Late st Contact Info) Description 03/13/2020 Transcribed Document [facility] [place] Family Medicine [facility] [place] [address] ProviderTatiana MD [address] [place] [address] [phone] Social History Tobacco Use Types Packs/Day Years Used Date Smoking Tobacco: Never Assessed Sex and Gender Information Value Date Recorded Sex Assigned at Not on file Legal Sex Male 5:33 PM CDT Gender Identity Not on file Sexual Orientation Not on file documented as of this encounter Miscellaneous Notes * Cerner Conversion Note - Historical ProviderMD - 03/13/2020 9:29 PM CDT [place] Suicide Severity Rating Scale (C-SSRS) Entered On: 03/13/2020 21:44 EDT Performed On: 03/13/2020 21:44 EDT by Salty Wolff RN [place] Suicide Severity Rating Scale (C-SSRS) CSSRS Past Month Wish to be : No CSSRS Past Month Suicidal Thoughts : No CSSRS Lifetime Suicide Behavior : No Suicide Severity Rating Score : 0 Suicide Severity Rating : No Additional Care Required at this time Salty Wolff RN - 03/13/2020 21:44 EDT documented in this encounter Plan of Treatment Not on file documented as of this encounter Visit Diagnoses Not on filedocumented in this encounter Care Teams Certified Lactation Counselor Relationship Specialty Start Date End Date Allyson Avery, FIRE REGULATOR [address] [phone] PCP - General Nurse Practitioner 02/06/23 documented as of this encounter
--- OUTSIDE RECORDS SUMMARY | 2024-08-03 10:36 | XMS_ITS | Encounter Summary ---
Author Organization In iatives Address [address] [place] [address] Care Team Providers Care Certified Travel Counselor Name Role Phone Allyson Avery APRN Primary Care Provider + [phone] Encounter Details Date Type Department Care Team (Late st Contact Info) Description 03/14/2020 Transcribed Document [facility] [place] Family Medicine [address] [place] [address] ProviderTatiana MD [address] [place] [address] [phone] Social History Tobacco Use Types Packs/Day Years Used Date Smoking Tobacco: Never Assessed Sex and Gender Information Value Date Recorded Sex Assigned at Not on file Legal Sex Male 5:33 PM CDT Gender Identity Not on file Sexual Orientation Not on file documented as of this encounter Miscellaneous Notes * Cerner Conversion Note - Historical ProviderMD - 03/14/2020 6:53 PM CDT Event [...] filedocumented in this encounter Care Teams Certified Travel Counselor Relationship Specialty Start Date End Date Allyson Avery, MANAGER GREEN [address] [address] PCP - General Nurse Practitioner 02/06/23 documented as of this encounter
--- OUTSIDE RECORDS SUMMARY | 2024-08-03 10:36 | XMS_ITS | Encounter Summary ---
Author Organization [facility] In iatives Address [address] [place] [address] Care Team Providers Care Posting Specialist Name Role Phone Bennie Allyson BABCOCK Primary Care Provider + [phone] Encounter Details Date Type Department Care Team (Late st Contact Info) Description 07/02/2019 Transcribed Document [facility] [place] [facility] [place] [address] ProviderTatiana MD [address] [place] [address] [phone] Social History Tobacco Use Types Packs/Day Years [...] PAT MENCHACA Gender: Male : 38 Age: 78 Years [...] : Yes Discharge To Care Management : Home/Residential/Skilled Nursing or Self Care - ALMA COSTA RN-Care Management - 07/02/2019 12:49 EDT Electronically signed by [facility] Conversion Legal Analyst Cerner at 12/20/2022 12:34 PM CDT documented in this encounter Plan of Treatment Not on file documented as of this encounter Visit Diagnoses Not on filedocumented in this encounter Care Teams Posting Specialist Relationship Specialty Start Date End Date Allyson Avery, YOKO [address] [address] PCP - General Nurse Practitioner 02/06/23 documented as of this encounter
--- OUTSIDE RECORDS SUMMARY | 2024-08-03 10:36 | XMS_ITS | Encounter Summary ---
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 Since [...] High (03/14/20 04:42:00) Electronically signed by Angel [facility] Conversion Esol Teacher Assistant Cerner at 12/20/2022 12:10 PM CDT documented in this encounter Plan of Treatment Not on file documented as of this encounter Visit Diagnoses Not on filedocumented in this encounter Care Teams Computer Engineering Technologist Relationship Specialty Start Date End Date Allyson Avery APRN [address] [facility] [address] [place] [address] PCP - General Nurse Practitioner 02/06/23 documented as of this encounter
--- OUTSIDE RECORDS SUMMARY | 2024-08-03 10:36 | XMS_ITS | Encounter Summary ---
Author Organization [facility] In iatives Address [address] [place] [address] Care Team Providers Care Environmental Intern Name Role Phone Bennie Allyson BABCOCK Primary Care Provider + [phone] Encounter Details Date Type Department Care Team (Late st Contact Info) Description 03/13/2020 Transcribed Document [facility] [place] Family Medicine [address] [place] [address] ProviderTatiana MD [address] [place] [address] [phone] Social History Tobacco Use Types Packs/Day Years [...] the text rendition version of the form. Electronically signed by Aruna Ortiz Conversion Preparation Department Supervisor Cerner at 12/20/2022 12:29 PM CDT documented in this encounter Plan of Treatment Not on file documented as of this encounter Visit Diagnoses Not on filedocumented in this encounter Care Teams Environmental Intern Relationship Specialty Start Date End Date Allyson Avery, YOKO [address] [address] [place] [phone] PCP - General Nurse Practitioner 02/06/23 documented as of this encounter
--- OUTSIDE RECORDS SUMMARY | 2024-08-03 10:36 | XMS_ITS | Encounter Summary ---
Author Organization [facility] In iatives Address [address] [place] [address] Care Team Providers Care Front Desk Lead Name Role Phone Bennie Allyson BABCOCK Primary Care Provider + [phone] Encounter Details Date Type Department Care Team (Late st Contact Info) Description 03/15/2020 Transcribed Document [facility] [place] Family Medicine [facility] [place] [address] ProviderTatiana MD [address] [place] [address] [phone] Social History Tobacco Use Types Packs/Day Years [...] Insurance 1 Health Plan: MEDICARE Policy Number: [id number] Authorization Number: Insurance 2 Health Plan: AARP N Policy Number: [id number] Authorization Number: Insurance Primary Name : MEDICARE Policy Number: [id number] AARP N Policy Number: [id number] Historical Authorization Comments-Primary : No Authorization Comments Found TERRI JIMENEZ Rn-Utilization Review - 03/15/2020 10:19 EDT documented in this encounter Plan of Treatment Not on file documented as of this encounter Visit Diagnoses Not on filedocumented in this encounter Care Teams Front Desk Lead Relationship Specialty Start Date End Date Allyson Avery, YOKO [address] [phone] PCP - General Nurse Practitioner 02/06/23 documented as of this encounter
--- OUTSIDE RECORDS SUMMARY | 2024-08-03 10:36 | XMS_ITS | Encounter Summary ---
Author Organization [facility] In iatives Address [address] [place] [address] Care Team Providers Care Chief Talent Officer Name Role Phone Allyson Avery APRN Primary Care Provider + [phone] Encounter Details Date Type Department Care Team (Late st Contact Info) Description 03/14/2020 Transcribed Document [facility] [place] [address] [place] [address] ProviderTatiana MD [address] [place] [address] Social History Tobacco Use Types Packs/Day [...] On: 03/14/2020 0:07 EDT by Kimi Mason, APPARATUS OPERATOR Event Note ED Description of Event : pt given dinner tray, pt changed onto hospital bed Kimi Mason RN - 03/14/2020 0:07 EDT documented in this encounter Plan of Treatment Not on file documented as of this encounter Visit Diagnoses Not on filedocumented in this encounter Care Teams Chief Talent Officer Relationship Specialty Start Date End Date Allyson Avery APRN [address] [place] [address] PCP - General Nurse Practitioner 02/06/23 documented as of this encounter
--- OUTSIDE RECORDS SUMMARY | 2024-08-03 10:36 | XMS_ITS | Encounter Summary ---
Author Organization [facility] In iatives Address [address] [place] [address] Care Team Providers Care Opto Mechanical Technician Name Role Phone Bennie Allyson BABCOCK Primary Care Provider + [phone] Encounter Details Date Type Department Care Team (Late st Contact Info) Description 03/16/2020 Transcribed Document [facility] [place] Family Medicine [address] [place] [address] ProviderTatiana MD [address] [place] [address] [phone] Social History Tobacco Use Types Packs/Day Years [...] advanced such that a new [employer] lead man over all dies in pattern shop model 7122Q, serial #[id number], could be actively fixed to the right [...] is a Medtronic lead model 5076, serial #[id number], had a chronic capture threshold of 0.5 V with lead impedance of 400 ohms, sensed P-wave greater than [address] [employer] pulse generator model ZQ0660, serial #[id number], was attached to the leads. The pocket [...] device clinic followup, and home remote monitoring. /[id number] MD CATALINO Bennett/AQ / TCR / MODL /[id number] documented in this encounter Plan of Treatment Not on file documented as of this encounter Visit Diagnoses Not on filedocumented in this encounter Care Teams Opto Mechanical Technician Relationship Specialty Start Date End Date Allyson Avery, YOKO [address] [phone] PCP - General Nurse Practitioner 02/06/23 documented as of this encounter
--- OUTSIDE RECORDS SUMMARY | 2024-08-03 10:36 | XMS_ITS | Encounter Summary ---
Author Organization [facility] In iatives Address [address] [place] [address] Care Team Providers Care Talent Solutions Manager Name Role Phone Bennie Allyson BABCOCK Primary Care Provider + [phone] Encounter Details Date Type Department Care Team (Late st Contact Info) Description 03/16/2020 Transcribed Document [facility] [place] Family Medicine [address] [place] [address] ProviderTatiana MD [address] [place] [address] [phone] Social History Tobacco Use Types Packs/Day Years [...] OT : 79 yo M admitted to [facility] 03/14 secondary to CAD, syncope, and VTACH. Upgrade to ICD from [facility]. EUGENE LYNCH OTR/Belia - 03/17/2020 13:23 EDT [...] Providing Information : Patient, Child/Children, Other: [facility] Home Equipment, Therapy : None [...] (patient in sling for support) EUGENE LYNCH OTR/L - 03/17/2020 13:23 EDT Self Care/Home Management, [...] : Supervision or set-up EUGENE LYNCH OTR/L - 03/17/2020 13:23 EDT Mobility Device/Prosthesis/Wt Bearing Weight Bearing Status Maintained : Yes EUGENE LYNCH OTR/L - 03/17/2020 13:23 EDT Functional Mobility Mobility Grid Supine to Sit : Rehab Complete independence Sit to Stand : Supervision/set-up Stand to Sit : Supervision/set-up EUGENE LYNCH OTR/L - 03/17/2020 13:23 EDT Sit to Stand Device : Belt, gait Stand to Sit Device : Belt, gait EUGENE LYNCH OTR/L - 03/17/2020 13:23 EDT Cognition Assessment, OT Orientation : Oriented x 4 Cognition Assessment, OT : Intact Comprehension Assessment, OT : Intact EUGENE LYNCH OTR/L - 03/17/2020 13:23 EDT Education OT Occupational Therapy Education Grid Functional Mobility Training : Returns demonstration Role of Occupational Therapy : Verbalizes understanding EUGENE LYNCH OTR/Belia - 03/17/2020 13:23 EDT Teaching/Learning Assessment Barriers To Learning : None evident Individuals Taught : Patient Readiness to Learn : Cooperative Readiness to Learn : Explanation Learning Style Preferences Patient : None Learning Style Preferences Family : None EUGENE LYNCH OTR/Belia - 03/17/2020 13:23 EDT Indication Assessment, OT Occupational Therapy Indicated : No Occupational Therapy Not Indicated : No skilled services indicated, Other: Patient with discharge orders home 03/17 EUGENE LYNCH OTR/Belia - 03/17/2020 13:23 EDT Plan of Care, OT OT Tx Plan/Goals Established w Patient : No Reason OT Treatment/Plan Not Established : Patient with discharge orders home 03/17 EUGENE LYNCH H, OTAmber/Belia - 03/17/2020 13:23 EDT Treatment Note Subjective [...] time. Plan for Treatment : Defer OT. EUGENE LYNCH OTAmber/Belia - 03/17/2020 13:23 EDT Pain Assessment [...] EUGENE LYNCH OTAmber/Belia - 03/17/2020 13:23 EDT Electronically signed by Angel [facility] Conversion Geochemist Cerner at 12/20/2022 12:31 PM CDT documented in this encounter Plan of Treatment Not on file documented as of this encounter Visit Diagnoses Not on filedocumented in this encounter Care Teams Talent Solutions Manager Relationship Specialty Start Date End Date Allyson Avery, YOKO [address] [place] [phone] PCP - General Nurse Practitioner 02/06/23 documented as of this encounter
--- OUTSIDE RECORDS SUMMARY | 2024-08-03 10:36 | XMS_ITS | Encounter Summary ---
Author Organization [facility] In iatives Address [address] [place] [address] Care Team Providers Care Salesperson Women'S Hats Name Role Phone Allyson Avery APRN Primary Care Provider + [phone] Encounter Details Date Type Department Care Team (Late st Contact Info) Description 03/15/2020 Transcribed Document [facility] [place] Family Medicine [address] [place] [address] ProviderTatiana MD [address] [place] [address] [phone] Social History Tobacco Use Types Packs/Day Years [...] EDT Electronically signed by Aruna Ortiz Conversion Crown Assembly Machine Set Up Mechanic Cerner at 12/20/2022 12:26 PM CDT documented in this encounter Plan of Treatment Not on file documented as of this encounter Visit Diagnoses Not on filedocumented in this encounter Care Teams Salesperson Women'S Hats Relationship Specialty Start Date End Date Allyson Avery APRN [address] [place] [phone] PCP - General Nurse Practitioner 02/06/23 documented as of this encounter
--- OUTSIDE RECORDS SUMMARY | 2024-08-03 10:36 | XMS_ITS | Encounter Summary ---
Author Organization [facility] In iatives Address [address] [place] [address] Care Team Providers Care Rockboard Lather Name Role Phone Allyson Avery APRN Primary Care Provider + [phone] Encounter Details Date Type Department Care Team (Late st Contact Info) Description 03/13/2020 Transcribed Document [facility] [place] [address] [place] [address] ProviderTatiana MD [address] [place] [address] [phone] Social History Tobacco Use Types Packs/Day Years Used Date Smoking Tobacco: Never Assessed Sex and Gender Information Value Date Recorded Sex Assigned at Not on file Legal Sex Male 5:33 PM CDT Gender Identity Not on file Sexual Orientation Not on file documented as of this encounter Miscellaneous Notes * Cerner Conversion Note - Historical ProviderMD - 03/13/2020 11:27 PM CDT DATE OF ADMISSION: 03/13/2020 REFERRING PHYSICIAN: GUANACO GUILLERMO MD PRIMARY CARE PHYSICIAN: Ms. Allyson Avery APRN, [place], [place]. [facility] , 1940. CURRENT COMPLAINT: Spell of [...] magnesium level. Review these issues with his brick wheeler. Anticipate possible repeat cardiac catheterization. 2. Cardiac biomarker abnormality. The minimal abnormality of troponin may represent chronic myocardial injury versus a type 2 infarction associated with demand. The former is suggested by previous elevation with non-specific symptoms. 3. CAD 4. Hypertension 5. Hypothyroidism 6. Diabetes mellitus 7. other problems identified above /[id number] Eleazar Capellan MD MGSaw/AQ / MGE / MODL CC: Ms Bennie APRN, [place], [place], Dr. Heath Feldman Electronically signed by [facility], [facility] Conversion Contact Worker Lithography Cerner at 12/20/2022 12:26 PM CDT documented in this encounter Plan of Treatment Not on file documented as of this encounter Visit Diagnoses Not on filedocumented in this encounter Care Teams Rockboard Lather Relationship Specialty Start Date End Date Allyson Avery APRN [address] [phone] PCP - General Nurse Practitioner 02/06/23 documented as of this encounter
--- OUTSIDE RECORDS SUMMARY | 2024-08-03 10:36 | XMS_ITS | Encounter Summary ---
Author Organization [facility] In iatives Address [address] [place] [address] Care Team Providers Care Dairy Technologist Name Role Phone Unavailable Primary Care Provider Unavailabl e Encounter Details Date Type Department Care Team (Late st Contact Info) Description 03/13/2020 Historic Encounter [facility] Radiology [address] [place] [address] Jose Root MD [facility] [address] [place] [address] Social History Tobacco Use Types Packs/Day [...] 3:04 PM EDT BMP BASIC METABOLIC PANEL ([facility] BKR DATA CONV) Routine 03/16/2020 12:17 AM EDT TROPONIN I ULTRA ([facility] BKR DATA CONV) Routine 03/16/2020 12:17 AM EDT GLUCOSE-POC Routine 03/15/2020 10:52 PM EDT GLUCOSE-POC Routine 03/15/2020 11:07 AM EDT GLUCOSE-POC Routine 03/15/2020 5:46 AM EDT BMP BASIC METABOLIC PANEL ([facility] BKR DATA CONV) Routine 03/15/2020 5:45 [...] Routine 03/14/2020 11:04 AM EDT MAGNESIUM LEVEL ([facility] BKR DATA CONV) Routine 03/14/2020 8:34 AM EDT CMP COMPREHENSIVE METABOLIC PANEL ([facility] BKR DATA CONV) Routine 03/14/2020 8:34 AM EDT TROPONIN I ULTRA ([facility] BKR DATA CONV) Routine 03/14/2020 8:34 AM EDT TSH Routine 03/14/2020 8:34 AM EDT CBC (HEMOGRAM ONLY) Routine 03/14/2020 8 :34 AM EDT GLUCOSE-POC Routine 03/14/2020 6:36 AM EDT MAGNESIUM LEVEL ([facility] BKR DATA CONV) Routine 03/14/2020 4:42 AM EDT TROPONIN I ULTRA ([facility] BKR DATA CONV) Routine 03/14/2020 4:42 AM EDT HEMOGLOBIN A1C Routine 03/14/2020 4:30 AM EDT GLUCOSE-POC Routine 03/14/2020 2:37 AM EDT TROPONIN I ULTRA ([facility] BKR DATA CONV) Routine 03/14/2020 12:27 AM EDT XR CHEST 1 VIEW PORTABLE / BEDSIDE Routine 03/13/2020 11:[address] BRAIN WITHOUT IV CONTRAST STAT 03/13/2020 11:06 PM EDT URINALYSIS UA RFLX MICROSCOPIC CULT IF IND ([facility] BKR DATA CONV) Routine 03/13/2020 10:00 PM EDT URINALYSIS MICROSCOPIC ([facility] BKR DATA CONV) Routine 03/13/2020 10:00 PM EDT PROBNP ([facility] BKR DATA CONV Routine 03/13/2020 10:00 PM EDT CBC W/ AUTO DIFF ([facility] BKR DATA CONV) Routine 03/13/2020 10:00 PM EDT AUTOMATED DIFFERENTIAL ([facility] [employer] BKR DATA CONV) Routine 03/13/2020 10:00 PM EDT MAGNESIUM LEVEL ([facility] BKR DATA CONV) Routine 03/13/2020 10:00 PM EDT CMP COMPREHENSIVE METABOLIC PANEL ([facility] BKR DATA CONV) Routine 03/13/2020 10:00 PM EDT TROPONIN I ULTRA ([facility] BKR DATA CONV) Routine 03/13/2020 10:00 PM [...] by Yoan Carpio DO Yoan Carpio DO [facility] DIAGNOSTIC IMAGING ORDERABLE S Final Result * (ABNORMAL) BMP BASIC METABOLIC PANEL ([facility] BKR DATA CONV) (03/16/2020 12:17 AM EDT) Glucose Level 153(H) 74 - 106 mg/dL 03/16/2020 4:38 AM EDT Comment: ATEME has become aware of sulfasalazine and sulfapyridine [...] 7 AM EDT 03/16/2020 4:28 AM EDT [facility] Historical Provider LAB BLOOD ORDERABLES Fi nal Result Performing Organization Address City/State/[facility] Co de Phone Number [facility] [address] [phone] * (ABNORMAL) TROPONIN I ULTRA ([facility] BKR DATA CONV) (03/16/2020 12:17 AM [...] 7 AM EDT 03/16/2020 4:28 AM EDT Result [facility] Provider LAB BLOOD ORDERABLES Fi nal Result Performing Organization Address [facility]/ZIP Co de Phone Number [facility] [address] [phone] * (ABNORMAL) Glucose, Point of Care (03/15/2020 10:52 PM EDT) Glucose POC2 158(H) 70 - 110 mg/dL 03/16/2020 2:52 AM EDT [facility] [employer] [id number] 03/16/2020 2:52 AM EDT [facility] Device SN [id number] 03/16/2020 2:52 AM EDT [facility] Blood 03/15/2020 10:5 2 PM EDT 03/16/2020 3:10 AM EDT Result [facility] Provider POINT OF CARE TEST ORDE RABLES Final Result Performing Organization Address [facility] Co de Phone Number [facility] [address] [phone] * (ABNORMAL) Glucose, Point of Care (03/15/2020 11:07 AM EDT) Glucose POC2 124(H) 70 - 110 mg/dL 03/15/2020 3:07 PM EDT [facility] [employer] [id number] 03/15/2020 3:07 PM EDT [facility] Device SN [id number] 03/15/2020 3:07 PM EDT [facility] Device Comment1 Notified Nurse RBV 03/15/2020 3:07 PM EDT [facility] Blood 03/15/2020 11:0 7 AM EDT 03/15/2020 3:10 PM EDT us [facility] Historical Provider POINT OF CARE TEST ORDE RABLES Final Result Performing Organization Address [facility] Co de Phone Number [facility] [address] [phone] * (ABNORMAL) Glucose, Point of Care (03/15/2020 5:46 AM EDT) Glucose POC2 123(H) 70 - 110 mg/dL 03/15/2020 9:46 AM EDT [facility] [employer] [id number] 03/15/2020 9:46 AM EDT [facility] Device SN [id number] 03/15/2020 9:46 AM EDT [facility] Device Comment1 Notified Nurse RBV 03/15/2020 9:46 AM EDT [facility] Blood 03/15/2020 5:46 AM EDT 03/15/2020 9:50 AM EDT [facility] Provider POINT OF CARE TEST ORDE RABLES Final Result Performing Organization Address [facility] de Phone Number [facility] [address] [phone] * (ABNORMAL) TR[facility]ONIN I ULTRA [facility] (03/15/2020 5:45 AM EDT) TroponinI [...] AM EDT 03/15/2020 11:39 AM EDT us [facility] Historical Provider LAB BLOOD ORDERABLES Fi nal Result [facility] [address] [place] [id number], [facility] [phone] * (ABNORMAL) BMP BASIC METABOLIC PANEL ([facility] BKR DATA CONV) (03/15/2020 5:45 AM EDT) Glucose Level 133(H) 74 - 106 mg/dL 03/15/2020 9:54 AM EDT Comment: ATEME has become aware of sulfasalazine and sulfapyridine [...] 5:45 AM EDT 03/15/2020 9:45 AM EDT [facility] Historical Provider LAB BLOOD ORDERABLES Fi nal Result [facility] [address] [place] [address] * (ABNORMAL) AUTOMATED DIFFERENTIAL ([facility] BKR DATA CONV) (03/15/2020 5:30 AM EDT) Neut% 55.0 34.0 - 71.0 % 03/15/2020 9:43 AM EDT Lymph% 29.3 19.3 - 53.1 % 03/15/2020 9:43 AM EDT [place]% 10.1(H) 3.0 - 9.0 % 03/15/2020 9:43 AM EDT Eos% 3.9 0.0 - 7.0 % 03/15/2020 9:43 AM EDT Baso% 1.2 0.0 - 1.5 % 03/15/2020 9:43 AM EDT IG% 0.50 0.00 - 0.60 % 03/15/2020 9:43 AM EDT Neut# 2.23 1.56 - 6.13 K/uL 03/15/2020 9:43 AM EDT Lymph# 1.19 1.00 - 3.90 x10(3)/uL 03/15/2020 9:43 AM EDT [place]# 0.41 0.16 - 1.00 K/uL 03/15/2020 9:43 AM EDT Eos# 0.16 0.00 - 0.80 x10(3)/uL 03/15/2020 9:43 AM EDT Baso# 0.05 0.00 - 0.20 x10(3)/uL 03/15/2020 9:43 AM EDT IG# 0.02 0.00 - 0.05 x10(3)/uL 03/15/2020 9:43 AM EDT Blood 03/15/2020 5:30 AM EDT 03/15/2020 9:38 AM EDT Narrative [facility] - 03/15/2020 9:48 AM EDT Added by Discern Expert [facility] Historical Provider LAB BLOOD ORDERABLES Fi nal Result Performing Organization Address City/[facility]/ZIP Co de Phone Number [facility] [address] [phone] * (ABNORMAL) CBC W/ AUTO DIFF ([facility] BKR DATA CONV) (03/15/2020 5:30 AM [...] 5:30 AM EDT 03/15/2020 9:38 AM EDT [facility] Historical Provider LAB BLOOD ORDERABLES Fi nal Result Performing Organization Address City/[facility]/ZIP Co de Phone Number [facility] [address] [place] [address], [facility] [phone] * (ABNORMAL) Glucose, Point of Care (03/14/2020 9:13 PM EDT) Glucose POC2 133(H) 70 - 110 mg/dL 03/15/2020 1:13 AM EDT [facility] [employer] [id number] 03/15/2020 1:13 AM EDT [facility] Device SN [id number] 03/15/2020 1:13 AM EDT [facility] Device Comment1 Protocols Followed 03/15/2020 1:13 AM EDT [facility] Blood 03/14/2020 9:13 PM EDT 03/15/2020 1:15 AM EDT us [facility] Historical Provider POINT OF CARE TEST ORDE RABLES Final Result Performing Organization Address City/[facility]/ZIP Co de Phone Number [facility] [address] [phone] * (ABNORMAL) Glucose, Point of Care (03/14/2020 4:13 PM EDT) Glucose POC2 143(H) 70 - 110 mg/dL 03/14/2020 8:13 PM EDT [facility] [employer] [id number] 03/14/2020 8:13 PM EDT [facility] Device SN [id number] 03/14/2020 8:13 PM EDT [facility] Device Comment1 Notified Nurse RBV 03/14/2020 8:13 PM EDT [facility] Blood 03/14/2020 4:13 PM EDT 03/14/2020 8:15 PM EDT us [facility] Historical Provider POINT OF CARE TEST ORDE RABLES Final Result [facility] [address] [phone] * (ABNORMAL) Glucose, Point of Care (03/14/2020 11:04 AM EDT) Glucose POC2 130(H) 70 - 110 mg/dL 03/14/2020 3:04 PM EDT [facility] [employer] [id number] 03/14/2020 3:04 PM EDT [facility] Device SN [id number] 03/14/2020 3:04 PM EDT [facility] Device Comment1 Notified Nurse RBV 03/14/2020 3:04 PM EDT [facility] Blood 03/14/2020 11:0 4 AM EDT 03/14/2020 3:10 PM EDT [facility] Provider POINT OF CARE TEST ALIZEE IRVING Final Result [facility] [address] [phone] * (ABNORMAL) CMP COMPREHENSIVE METABOLIC PANEL ([facility] BK DATA CONV) (03/14/2020 8:34 AM [...] 106 mg/dL 03/14/2020 1:10 PM EDT Comment: ATEME has become aware of sulfasalazine and sulfapyridine [...] Units/Lit er 03/14/2020 1:10 PM EDT Comment: ATEME has become aware of sulfasalazine and sulfapyridine [...] Units/Lit er 03/14/2020 1:10 PM EDT Comment: ATEME has become aware of sulfasalazine and sulfapyridine [...] 8:34 AM EDT 03/14/2020 12:44 PM EDT [facility] Historical Provider LAB BLOOD ORDERABLES Fi nal Result Performing Organization Address [facility] de Phone Number [facility] [address] [phone] * (ABNORMAL) TROPONIN I ULTRA ([facility] DATA CONV) (03/14/2020 8:34 AM EDT) TroponinI [...] 8:34 AM EDT 03/14/2020 12:44 PM EDT [facility] Historical Provider LAB BLOOD ORDERABLES Fi nal Result Performing Organization Address [facility] Phone Number [facility] [address] [phone] * MAGNESIUM LEVEL ([facility] BKR DATA CONV) (03/14/2020 8:34 AM EDT) Magnesium Level 1.8 1.5 - 2.4 mg/dL 03/14/2020 1:10 PM EDT Blood 03/14/2020 8:34 AM EDT 03/14/2020 12:44 PM EDT [facility] Provider LAB BLOOD ORDERABLES Fi nal Result Performing Organization Address City/[facility]/ZIP Co de Phone Number [facility] [address] [phone] * TSH (03/14/2020 8:34 AM EDT) Pathologist [facility] TSH 1.330 0.358 - 3.740 mcInt Units/mL 03/14/2020 1:10 PM EDT Comment:Biotin supplements c an cause clinically significant incorrect lab results. The FDA has seen an increase in the number of reported adverse events related to biotin interferencewith lab tests. Blood 03/14/2020 8:34 AM EDT 03/14/2020 12:44 PM EDT [facility] Provider LAB BLOOD ORDERABLES Fi nal Result Performing Organization Address City/[facility]/ZIP Co de Phone Number [facility] [address] [phone] * (ABNORMAL) CBC (Hemogram only) (03/14/2020 8:34 [...] 8:34 AM EDT 03/14/2020 12:44 PM EDT [facility] Provider LAB BLOOD ORDERABLES Fi nal Result Performing Organization Address City/[facility]/ZIP Co de Phone Number [facility] [address] [phone] * (ABNORMAL) Glucose, Point of Care (03/14/2020 6:36 AM EDT) [facility] Glucose POC2 118(H) 70 - 110 mg/dL 03/14/2020 10:36 AM EDT [facility] [employer] [id number] 03/14/2020 10:36 AM EDT [facility] Device SN [id number] 03/14/2020 10:36 AM EDT [facility] Blood 03/14/2020 6:36 AM EDT 03/14/2020 10:40 AM EDT [facility] Provider POINT OF CARE TEST ORDE RABLES Final Result Performing Organization Address [facility]/ZIP Co de Phone Number [facility] [address] [phone] * (ABNORMAL) TROPONIN I ULTRA ([facility] BKR DATA CONV) (03/14/2020 4:42 AM [...] 4:42 AM EDT 03/14/2020 8:53 AM EDT Result [facility] Provider LAB BLOOD ORDERABLES Fi nal Result Performing Organization Address [facility] de Phone Number [facility] [address] [place] [address] * MAGNESIUM LEVEL ([facility] BKR DATA CONV) (03/14/2020 4:42 AM EDT) Magnesium Level 1.8 1.5 - 2.4 mg/dL 03/14/2020 8:49 AM EDT Blood 03/14/2020 4:42 AM EDT 03/14/2020 8:44 AM EDT Result [facility] Provider LAB BLOOD ORDERABLES Fi nal Result Performing Organization Address [facility] Co de Phone Number [facility] [address] [phone] * HEMOGLOBIN A1C (03/14/2020 4:30 AM EDT) [...] 4:30 AM EDT 03/14/2020 8:35 AM EDT [facility] Historical Provider LAB BLOOD ORDERABLES Fi nal Result Performing Organization Address [facility] Phone Number [facility] [address] [phone] * (ABNORMAL) Glucose, Point of Care (03/14/2020 2:37 AM EDT) [facility] Glucose POC2 170(H) 70 - 110 mg/dL 03/14/2020 6:37 AM EDT [facility] [employer] [id number] 03/14/2020 6:37 AM EDT [facility] Device SN [id number] 03/14/2020 6:37 AM EDT [facility] Device Comment1 Notified Nurse RBV 03/14/2020 6:37 AM EDT [facility] Blood 03/14/2020 2:37 AM EDT 03/14/2020 6:40 AM EDT [facility] Historical Provider POINT OF CARE TEST ORDE RABLES Final Result Performing Organization Address [facility] Phone Number [facility] [address] [phone] * (ABNORMAL) TROPONIN I ULTRA ([facility] BKR DATA CONV) (03/14/2020 12:27 AM [...] 7 AM EDT 03/14/2020 4:27 AM EDT [facility] Historical Provider LAB BLOOD ORDERABLES Fi nal Result [facility] [address] [phone] * XR chest 1 view portable / [...] Final R esult * (ABNORMAL) AUTOMATED DIFFERENTIAL ([facility] BKR DATA CONV) (03/13/2020 10:00 PM EDT) Neut% 57.0 34.0 - 71.0 % 03/14/2020 2:07 AM EDT Lymph% 26.8 19.3 - 53.1 % 03/14/2020 2:07 AM EDT [place]% 10.5(H) 3.0 - 9.0 % 03/14/2020 2:07 AM EDT Eos% 4.1 0.0 - 7.0 % 03/14/2020 2:07 AM EDT Baso% 1.2 0.0 - 1.5 % 03/14/2020 2:07 AM EDT IG% 0.40 0.00 - 0.60 % 03/14/2020 2:07 AM EDT Neut# 2.76 1.56 - 6.13 K/uL 03/14/2020 2:07 AM EDT Lymph# 1.30 1.00 - 3.90 x10(3)/uL 03/14/2020 2:07 AM EDT [place]# 0.51 0.16 - 1.00 K/uL 03/14/2020 2:07 AM EDT Eos# 0.20 0.00 - 0.80 x10(3)/uL 03/14/2020 2:07 AM EDT Baso# 0.06 0.00 - 0.20 x10(3)/uL 03/14/2020 2:07 AM EDT IG# 0.02 0.00 - 0.05 x10(3)/uL 03/14/2020 2:07 AM EDT Blood 03/13/2020 10:0 0 PM EDT 03/14/2020 2:04 AM EDT Narrative [facility] - 03/14/2020 2:07 AM EDT Added by Discern Expert [facility] Historical Provider LAB BLOOD ORDERABLES Fi nal Result [facility] [address] [phone] * Lactic Acid with reflex () (03/13/2020 10:00 PM EDT) Lactic Acid Level 1.5 0.4 - 2.0 mmol/L 03/14/2020 2:27 AM EDT Blood 03/13/2020 10:0 0 PM EDT 03/14/2020 2:06 AM EDT [facility] Provider LAB BLOOD ORDERABLES Fi nal Result Performing Organization Address City/[facility] Co de Phone Number [facility] [address] [phone] * URINALYSIS UA RFLX MICROSCOPIC CULT IF IND ([facility] BKR DATA CONV) (03/13/2020 10:00 PM [...] 03/14/20 20 2:10 AM EDT Urine Specific [place] 1.021 1.005 - 1.030 03/14/2020 2:10 AM [...] 0 PM EDT 03/14/2020 2:07 AM EDT [facility] Historical Provider URINE ORDERABLES Final Result Performing Organization Address [facility] de Phone Number [facility] [address] [phone] * (ABNORMAL) TROPONIN I ULTRA ([facility] BKR DATA CONV) (03/13/2020 10:00 PM [...] 0 PM EDT 03/14/2020 2:04 AM EDT [facility] Provider LAB BLOOD ORDERABLES Fi nal Result Performing Organization Address [facility] Co de Phone Number [facility] [address] [phone] * (ABNORMAL) URINALYSIS MICROSCOPIC ([facility] BKR DATA CONV) (03/13/2020 10:00 PM EDT) Correlate UA Correlated Correlated 03/14/2020 2:18 AM EDT Ur Mucous Trace(A) 03/14/2020 2:18 AM EDT 03/13/2020 10:0 0 PM EDT 03/14/2020 2:07 AM EDT Narrative [facility] - 03/14/2020 2:18 AM EDT Added by Discern Expert [facility] Historical Provider URINE ORDERABLES Final Result [facility] [address] [phone] * (ABNORMAL) CMP COMPREHENSIVE METABOLIC PANEL ([facility] BKR DATA CONV) (03/13/2020 10:00 PM [...] 106 mg/dL 03/14/2020 2:23 AM EDT Comment: ATEME has become aware of sulfasalazine and sulfapyridine [...] Units/Lit er 03/14/2020 2:23 AM EDT Comment: ATEME has become aware of sulfasalazine and sulfapyridine [...] Units/Lit er 03/14/2020 2:23 AM EDT Comment: ATEME has become aware of sulfasalazine and sulfapyridine [...] 0 PM EDT 03/14/2020 2:04 AM EDT [facility] Provider LAB BLOOD ORDERABLES Fi nal Result Performing Organization Address City/[facility]/ZIP Co de Phone Number [facility] [address] [phone] * PROBNP ([facility] BKR DATA CONV (03/13/2020 10:00 PM EDT) ProBNP 377 0 - 450 pg/mL 03/14/2020 2:23 AM EDT Blood 03/13/2020 10:0 0 PM EDT 03/14/2020 2:04 AM EDT Result [facility] Provider LAB BLOOD ORDERABLES Fi nal Result Performing Organization Address [facility] Co de Phone Number [facility] [address] [phone] * MAGNESIUM LEVEL ([facility] BKR DATA CONV) (03/13/2020 10:00 PM EDT) Magnesium Level 1.9 1.5 - 2.4 mg/dL 03/14/2020 2:23 AM EDT Blood 03/13/2020 10:0 0 PM EDT 03/14/2020 2:04 AM EDT [facility] Provider LAB BLOOD ORDERABLES Fi nal Result Performing Organization Address City/[facility]/ZIP Co de Phone Number [facility] [address] [phone] * (ABNORMAL) CBC W/ AUTO DIFF ([facility] BKR DATA CONV) (03/13/2020 10:00 PM [...] 0 PM EDT 03/14/2020 2:04 AM EDT [facility] Historical Provider LAB BLOOD ORDERABLES Fi nal Result [facility] [address] [place] [address], [facility] [phone] documented in this encounter Visit Diagnoses Not on filedocumented in this encounter
--- OUTSIDE RECORDS SUMMARY | 2024-08-03 10:36 | XMS_ITS | Encounter Summary ---
Author Organization [facility] In iatives Address [address] [place] [address] Care Team Providers Care Fiber Machine Tender Name Role Phone Allyson Avery APRN Primary Care Provider + [phone] Encounter Details Date Type Department Care Team (Late st Contact Info) Description 03/14/2020 Transcribed Document [facility] [place] [address] ProviderTatiana MD [address] [place] [address] [id number] Social History Tobacco Use Types Packs/Day Years [...] EDT Advance Directive Comment : no intubation/ Hetaher Daniels Rn - 03/14/2020 9:46 EDT Anesthesia/Transfusion [...] Unaccompanied Legal Guardian : No Support Person/Patient Separating Machine Operator : Yes Heather Daniels Rn - 03/14/2020 9:46 EDT Support Person/Pt Rep Name : Albertina Sow RN - 03/16/2020 9:18 EDT Contact Password : Heather Emerson Rn - 03/14/2020 9:46 EDT Support Person/Pt Rep Contact Information : [phone] Albertina Young RN - 03/16/2020 9:18 EDT [...] From : Patient, Daughter Primary Language : Scottish Preferred Communication Mode : Verbal Communication Barrier : None, Other: hearing Inspector Returned Materials Needed : No Heather Daniels Rn - [...] Scale Risk Level : 25-45 Medium Risk [place] Fall Interventions : Bed in low position, [...] Updated: 12/28/2015 04:57:31 EDT by Sara Mcdonald, Rn) Substance Abuse: Drug Use Hx: No. Use in Last 12 Months: No. (Last Updated: 12/28/2015 05:03:24 EDT by Sara Mcdonald, Rn) Nutrition/Health: Type of diet: several teeth removed in the last 6 months and having difficulty chewing. Regular, Caffeine intake amount: none. (Last Updated: 12/28/2015 05:02:33 EDT by Sara Mcdonald, Rn) Exercise: Exercise duration: 0. (Last Updated: [...] Source : Stated Height Entry Format : [place] Height, Feet : 6 ft(Converted to: 183 cm, 72 Inch) Height, Inches : 0 Inch(Converted to: 0 ft 0 Inch, 0.00 cm) Clinical Height : 182.88 cm Weight Source : Bed scale Weight Entry Format : [place] Clinical Dosing Weight : 78.21 kg Weight, Pounds : 172 lb Weight, Ounces : 1 oz Body Surface Area (BSA) : 2 m2 Body Mass Index : 23.4 kg/m2 [place] Body Weight : 77 kg Heather Daniels [...] Heather Daniels Rn - 03/14/2020 9:46 EDT [place] Suicide Severity Rating Scale (C-SSRS) CSSRS Past [...] on filedocumented in this encounter Care Teams Fiber Machine Tender Relationship Specialty Start Date End Date Allyson Avery, YOKO [address] [facility] [address] [place] [address] PCP - General Nurse Practitioner 02/06/23 documented as of this encounter
--- OUTSIDE RECORDS SUMMARY | 2024-08-03 10:36 | XMS_ITS | Encounter Summary ---
Author Organization [facility] In iatives Address [address] [place] [address] Care Team Providers Care Digital Production Operator Name Role Phone Bennie Allyson BABCOCK Primary Care Provider + [phone] Encounter Details Date Type Department Care Team (Late st Contact Info) Description 03/15/2020 Transcribed Document [facility] [place] Family Medicine [address] [place] [address] ProviderTatiana MD [address] [place] [address] [phone] Social History Tobacco Use Types Packs/Day Years Used Date Smoking Tobacco: Never Assessed Sex and Gender Information Value Date Recorded Sex Assigned at Not on file Legal Sex Male 5:33 PM CDT Gender Identity Not on file Sexual Orientation Not on file documented as of this encounter Miscellaneous Notes * Cerner Conversion Note - Historical ProviderMD - 03/15/2020 3:07 PM CDT DATE OF SERVICE: 03/15/2020 PROCEDURE PERFORMED: Left heart catheterization, selective coronary arteriography, selective bypass angiography. INDICATIONS: Ventricular tachycardia, syncope, CAD and angina with known complex coronary disease. PROCEDURE IN DETAIL: RFA, 5-Albanian sheath, 5-Albanian Deo, Multipack, manual compression hemostasis after Mynx device. No adverse events. FINDINGS: LV pressure 148/16. Aortic pressure 150/78. No significant gradient across the aortic valve. LEFT VENTRICULOGRAM: Ventricular study demonstrates akinesia of the inferior wall with severe reduction in cardiac ejection fraction estimated to be between 30% and 35% with good movement of the anterior wall. No mitral insufficiency noted. [place] [facility] [facility] [place] CORONARY ARTERIOGRAPHY: Left coronary artery: Left main [...] management of ischemic coronary disease and cardiomyopathy. /[id number] Heath Feldman MD JCS/AQ / JCS / MODL /[id number] Electronically signed by Angel, [facility] Conversion Wax Specialist Cerner at 12/20/2022 12:12 PM CDT documented in this encounter Plan of Treatment Not on file documented as of this encounter Visit Diagnoses Not on filedocumented in this encounter Care Teams Digital Production Operator Relationship Specialty Start Date End Date Allyson Avery, YOKO [address] [place] [address] [place] [phone] PCP - General Nurse Practitioner 02/06/23 documented as of this encounter
--- OUTSIDE RECORDS SUMMARY | 2024-08-03 10:36 | XMS_ITS | Encounter Summary ---
Author Organization [facility] Address [address] [place] [address] Care Team Providers Care Shipping Weigher Name Role Phone Bennie Allyson APRN Primary Care Provider + [phone] Encounter Details Date Type Department Care Team (Late st Contact Info) Description 03/16/2020 Transcribed Document [facility] [place] [address] [place] [address] ProviderTatiana MD [address] [place] [address] [phone] Social History Tobacco Use Types Packs/Day Years [...] on filedocumented in this encounter Care Teams Shipping Weigher Relationship Specialty Start Date End Date Allyson Avery APRN [address] [phone] PCP - General Nurse Practitioner 02/06/23 documented as of this encounter
--- OUTSIDE RECORDS SUMMARY | 2024-08-03 10:36 | XMS_ITS | Encounter Summary ---
Author Organization [facility] In iatives Address [address] [place] [address] Care Team Providers Care Business Analyst Sales Operations Name Role Phone Allyson Avery APRN Primary Care Provider + [phone] Encounter Details Date Type Department Care Team (Late st Contact Info) Description 03/15/2020 Transcribed Document [facility] [place] Family Medicine [address] [place] [address] ProviderTatiana MD [address] [place] [address] Social History Tobacco Use Types Packs/Day [...] on filedocumented in this encounter Care Teams Business Analyst Sales Operations Relationship Specialty Start Date End Date Allyson Avery, PHYSICS FACULTY MEMBER [address] [address] PCP - General Nurse Practitioner 02/06/23 documented as of this encounter
--- OUTSIDE RECORDS SUMMARY | 2024-08-03 10:36 | XMS_ITS | Encounter Summary ---
Author Organization [employer] In [employer] Address [address] [place] [address] Care Team Providers Care Plant Maintenance Supervisor Name Role Phone Alylson Avery APRN Primary Care Provider + [phone] Encounter Details Date Type Department Care Team (Late st Contact Info) Description 03/15/2020 Transcribed Document [facility] [place] [address] [place] [address] ProviderTatiana MD [address] [place] [address]401 Social History Tobacco Use Types Packs/Day Years [...] Associated Diagnoses: None Author: JOSHUA CHAPMAN APRN [facility] CARDIOLOGY PROGRESS NOTE: DIAGNOSIS: 1. VT with [...] kg (03/15/20 04:00:00) Routine Weight Entry Format: [place] (03/15/20 04:00:00) Routine Weight Source: Bed scale (03/15/20 04:00:00) Routine Weight, Ounces: 2 oz (03/15/20 04:00:00) Routine Weight, Pounds: 173 lb (03/15/20 04:00:00) [place] Body Weight: 77 kg (03/14/20 08:11:00) Intake [...] echocardiogram revealed new wall motion abnormalities for [facility] today SSS s/p dual chamber PPM HTN HLP Length of time spent facilitating, coordinating providing care greater than 35 minutes Electronically signed by Angel [facility] Conversion Records Clerk Cerner at 12/20/2022 12:16 PM CDT documented in this encounter Plan of Treatment Not on file documented as of this encounter Visit Diagnoses Not on filedocumented in this encounter Care Teams Plant Maintenance Supervisor Relationship Specialty Start Date End Date Allyson Avery, YOKO [address] [place] [address] [place] [phone] PCP - General Nurse Practitioner 02/06/23 documented as of this encounter
--- OUTSIDE RECORDS SUMMARY | 2024-08-03 10:36 | XMS_ITS | Encounter Summary ---
Author Organization [facility] In iatives Address [address] [facility] [place] [address] Care Team Providers Care Alarm Adjuster Name Role Phone Allyson Avery APRN Primary Care Provider + [phone] Encounter Details Date Type Department Care Team (Late st Contact Info) Description 03/15/2020 Transcribed Document [facility] [place] [address] [place] [address] ProviderTatiana MD [address] [place] [address] [phone] Social History Tobacco Use Types Packs/Day Years [...] Comment : Pt off floor in cardiac label maker. PT will follow up as time permits. JAKE HOLLINGSWORTH PT - 03/15/2020 14:55 EDT documented in this encounter Plan of Treatment Not on file documented as of this encounter Visit Diagnoses Not on filedocumented in this encounter Care Teams Alarm Adjuster Relationship Specialty Start Date End Date Allyson Avery APRN [address] [address] [place] [phone] PCP - General Nurse Practitioner 02/06/23 documented as of this encounter
--- OUTSIDE RECORDS SUMMARY | 2024-08-03 10:36 | XMS_ITS | Encounter Summary ---
Author Organization [facility] In iatives Address [address] [place] [address] Care Team Providers Care Barometers Calibrator Name Role Phone Allyson Avery APRN Primary Care Provider + [phone] Encounter Details Date Type Department Care Team (Late st Contact Info) Description 07/02/2019 Transcribed Document [facility] [place] [address] [place] [address] ProviderTatiana MD [address] [place] [address]91 Social History Tobacco Use Types Packs/Day Years [...] to eat less sodium. Medicines ??? Take ztdt-oiv-megpvcl and prescription medicines only as told by [...] emergency department or call: ??? Emergency services (551 in the [place] ??? A suicide crisis [...] 08/19/2006 Document Revised: 04/29/2018 Document Reviewed: 04/29/2018 [email or web address] Interactive Patient Education ? 2019 [employer]. documented in this encounter Plan of Treatment Not on file documented as of this encounter Visit Diagnoses Not on filedocumented in this encounter Care Teams Barometers Calibrator Relationship Specialty Start Date End Date Allyson Avery APRN [address] [place] [address] [place] [phone] PCP - General Nurse Practitioner 02/06/23 documented as of this encounter
--- OUTSIDE RECORDS SUMMARY | 2024-08-03 10:36 | XMS_ITS | Encounter Summary ---
Author Organization [facility] In [facility]atives Address [address] [place] [address] Care Team Providers Care Eco Industrial Development Consultant Name Role Phone Allyson Avery YOKO Primary Care Provider + [phone] Encounter Details Date Type Department Care Team (Late st Contact Info) Description 03/15/2020 Transcribed Document [facility] 1 [place] [address] Jf Gallagher MD [address] [place] [address] [address] [place] [address] Social History Tobacco Use Types Packs/Day Years [...] None Author: JF GALLAGHER MD-INT Subjective PCP: [facility] DOA: 03/13/2020 DOD: HPI: 79 year-old gentleman admitted to the hospital with a near syncopal episode and possibly V. tach CODE STATUS: Modified code as documented in the chart intubation and full treatment but no ACLS CONSULTS: Cardiology, [facility] WORKUP / PROCEDURES: HOSPITAL FOLLOWUP: 03/14/2020 Patient [...] Results Review Radiology Results (Last 48 hours) [id number] -- 03/14/2020 08:12 CT Head WO (03/13/2020 [...] on filedocumented in this encounter Care Teams Eco Industrial Development Consultant Relationship Specialty Start Date End Date Allyson Avery APRN [address] [phone] PCP - General Nurse Practitioner 02/06/23 documented as of this encounter
--- OUTSIDE RECORDS SUMMARY | 2024-08-03 10:36 | XMS_ITS | Encounter Summary ---
Author Organization [facility] In iatives Address [address] [place] [address] Care Team Providers Care Credit Risk Review Officer Name Role Phone Allyson Avery APRN Primary Care Provider + [phone] Encounter Details Date Type Department Care Team (Late st Contact Info) Description 03/14/2020 Transcribed Document [facility] [place] [address] [place] [address] ProviderTatiana MD [address] [place] [address] [phone] Social History Tobacco Use Types Packs/Day Years Used Date Smoking Tobacco: Never Assessed Sex and Gender Information Value Date Recorded Sex Assigned at Not on file Legal Sex Male 5:33 PM CDT Gender Identity Not on file Sexual Orientation Not on file documented as of this encounter Miscellaneous Notes * Cerner Conversion Note - Historical ProviderMD - 03/14/2020 9:53 AM CDT ED [...] 03/14/2020 9:53 EDT Electronically signed by Angel [facility] Conversion De Alcoholizer Cerner at 12/20/2022 12:13 PM CDT documented in this encounter Plan of Treatment Not on file documented as of this encounter Visit Diagnoses Not on filedocumented in this encounter Care Teams Credit Risk Review Officer Relationship Specialty Start Date End Date Allyson Avery, RN INTEGRATED [address] [address] [place] [phone] PCP - General Nurse Practitioner 02/06/23 documented as of this encounter
--- OUTSIDE RECORDS SUMMARY | 2024-08-03 10:36 | XMS_ITS | Encounter Summary ---
Author Organization [facility] In iatives Address [address] [place] [address] Care Team Providers Care Lining Caser Name Role Phone Allyson Avery YOKO Primary Care Provider + [phone] Encounter Details Date Type Department Care Team (Late st Contact Info) Description 03/16/2020 Transcribed Document [facility] 1 [place] [address] Jf Gallagher MD [address] [place] [address] [address] [place] [address] Social History Tobacco Use Types Packs/Day Years [...] None Author: JF GALLAGHER MD-INT Subjective PCP: [facility] DOA: 03/13/2020 DOD: HPI: 79 year-old gentleman admitted to the hospital with a near syncopal episode and possibly V. tach CODE STATUS: Modified code as documented in the chart intubation and full treatment but no ACLS CONSULTS: Cardiology, [facility] WORKUP / PROCEDURES: Cardiac Cath DATE OF [...] the anterior wall. No mitral insufficiency noted. [place] CORONARY ARTERIOGRAPHY: Left coronary artery: Left main [...] (MAR 16 06:30) Mon HR 60 (MAR 16:30) 60 (MAR 16 06:30) 70 (MAR 15 16:30) Resp Rate 16 (MAR 16 06:30) L 12 (MAR 15:) H 32 (MAR [...] on filedocumented in this encounter Care Teams Lining Caser Relationship Specialty Start Date End Date Allyson Avery APRN [address] [phone] PCP - General Nurse Practitioner 02/06/23 documented as of this encounter
--- OUTSIDE RECORDS SUMMARY | 2024-08-03 10:36 | XMS_ITS | Encounter Summary ---
Author Organization [facility] In iatives Address [address] [place] [address] Care Team Providers Care Physicians Assistant Name Role Phone Allyson Avery APRN Primary Care Provider + [phone] Encounter Details Date Type Department Care Team (Late st Contact Info) Description 03/16/2020 Transcribed Document [facility] [place] [address] [place] [address] ProviderTatiana MD [address] [place] [phone] Social History Tobacco Use Types Packs/Day Years Used Date Smoking Tobacco: Never Assessed Sex and Gender Information Value Date Recorded Sex Assigned at Not on file Legal Sex Male 5:33 PM CDT Gender Identity Not on file Sexual Orientation Not on file documented as of this encounter Miscellaneous Notes * Cerner Conversion Note - Historical ProviderMD - 03/16/2020 3:01 PM CDT Initial Discharge Planning Entered On: 03/16/2020 15:05 EDT Performed On: 03/16/2020 15:01 EDT by IGNACIA LYONS, RN-Sock Lining Stitcher Initial Assessment I Previously Documented Living Environment [...] Is Guardianship Needed : No IGNACIA LYONS, RN-Sock Lining Stitcher - 03/16/2020 15:01 EDT Initial Assessment II Sensory and Motor Deficits : None Current Home Treatments and Equipment : None Services and Community Resources : Home Health, Other: None IGNACIA LYONS, RN-Sock Lining Stitcher - 03/16/2020 15:01 EDT Discharge Needs I Anticipated Discharge Date : 03/17/2020 EDT Anticipated Discharge To, CM : Home with family care Current Home Treatment/Equipment : Current Home Treatment/Equipment Current Home Treatments and Equipment: None (03/15/20 15:20:00) Post Acute/Home Treatments : None Documentation Status Complete : Yes IGNACIA LYONS, RN-Sock Lining Stitcher - 03/16/2020 15:01 EDT Discharge Needs II Professional Skilled Services : Professional Skilled Services Services and Community Resources: Home Health (03/15/20 15:20:00) Services and Community Resources : Home Health Needs Assistance with Transportation : No Discharge Options Discussed with Patient : Discharge transportation, DME, Home Health IGNACIA LYONS, RN-Sock Lining Stitcher - 03/16/2020 15:01 EDT Narrative Note Narrative [...] 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 His daughter Jesika is also involved in his care [phone]. Patient's PCP is MARCO Duncan. 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 No prior rehab stay, home health, oxygen or DME. Patient's family will transport on discharge. DCP: Anticipate patient will discharge home with family. CM will follow for any needed referrals. CINDY GOMES, RN-Sock Lining Stitcher - 03/15/20 15:28:05 IGNACIA LYONS, RN-Sock Lining Stitcher - 03/16/2020 15:01 EDT documented in this encounter Plan of Treatment Not on file documented as of this encounter Visit Diagnoses Not on filedocumented in this encounter Care Teams Physicians Assistant Relationship Specialty Start Date End Date Allyson Avery APRN [address] [phone] PCP - General Nurse Practitioner 02/06/23 documented as of this encounter
--- OUTSIDE RECORDS SUMMARY | 2024-08-03 10:36 | XMS_ITS | Encounter Summary ---
Author Organization [facility] In iatives Address [address] [place] [address] Care Team Providers Care Table Filler Name Role Phone BennieHiensaw BABCOCK Primary Care Provider + [phone] Encounter Details Date Type Department Care Team (Late st Contact Info) Description 03/14/2020 Transcribed Document [facility] [place] [address] [place] [address] ProviderTatiana MD [address] [place] [address] Social History Tobacco Use Types Packs/Day Years [...] On: 03/14/2020 8:00 EDT by Asuncion Erwin [facility] Phone Call for Consults Consult Phone Call/Page Attempt : First call Consult Reason : CAD Vtach Physician Requesting Consult : ROMAN NGUYEN MD-INT Physician Requested for Consult : JADA HOLBROOK MD-CAR Provider Service Notified Name : Cardiology Physician Covering for Consult : JOSHUA CAHPMAN APRN Date and Time Call Returned : 03/14/2020 11:55 EDT Asuncion Erwin [facility] - 03/14/2020 11:56 EDT documented in this encounter Plan of Treatment Not on file documented as of this encounter Visit Diagnoses Not on filedocumented in this encounter Care Teams Table Filler Relationship Specialty Start Date End Date Allyson Avery, YOKO [address] [address] [place] [phone] PCP - General Nurse Practitioner 02/06/23 documented as of this encounter
--- OUTSIDE RECORDS SUMMARY | 2024-08-03 10:36 | XMS_ITS | Encounter Summary ---
Author Organization [facility] In [facility]atives Address [address] [place] [address] Care Team Providers Care Traffic Officer Name Role Phone Allyson Avery APRN Primary Care Provider + [phone] Encounter Details Date Type Department Care Team (Late st Contact Info) Description 03/16/2020 Transcribed Document [facility] [place] [address] [place] [address] ProviderTatiana MD [address] [place] [phone] Social History Tobacco Use Types Packs/Day Years [...] None Persons Providing Information : Patient, Other: [facility] Home Equipment Therapy, PT : Barbecky, Cane (Comment: next to toilet [LEE JOLLEY, [...] to Supine : Rehab Minimal assistance LEE JOLLYE, PT - 03/16/2020 14:11 EDT Supine to Sit Device : Rails Sit to Stand Device : None, Belt, gait, Other: GARMENT INSPECTOR of 1 Stand to Sit Device : None, Belt, gait, Other: GARMENT INSPECTOR of 1 Sit to Supine Devices : Rails, Other: Asst to get BLE back into bed. Functional MobilityComment : Pt sitting EOB with supervision. BERNIE in a sling s/p AICD. He stood and took 4-5 small lateral steps to his R with min GARMENT INSPECTOR of 1. Pt still a little sedated [...] Basic Command Assessment : Pt a little CHIGNIK LAGOON and a little slow to respond to questions secondary to sedation for AICD placement. LEE JOLLEY, PT - 03/16/2020 14:11 EDT Edu Topics [...] LEE JOLLEY, PT - 03/16/2020 14:11 EDT Longterm Goals Mobility/Bed Mobility LTG PT Grid Goal [...] - 03/16/2020 14:11 EDT Electronically signed by [facility] Conversion Voip Network Engineer Cerner at 12/20/2022 12:16 PM CDT documented in this encounter Plan of Treatment Not on file documented as of this encounter Visit Diagnoses Not on filedocumented in this encounter Care Teams Traffic Officer Relationship Specialty Start Date End Date Allyson Avery, YOKO [address] [facility] 1 [place] [address] PCP - General Nurse Practitioner 02/06/23 documented as of this encounter
--- OUTSIDE RECORDS SUMMARY | 2024-08-03 10:36 | XMS_ITS | Encounter Summary ---
Author Organization [facility] In iatives Address [address] [place] [address] Care Team Providers Care Operations Research Manager Name Role Phone Allyson Avery APRN Primary Care Provider + [phone] Encounter Details Date Type Department Care Team (Late st Contact Info) Description 03/13/2020 Transcribed Document [facility] [place] [facility] [place] [address] ProviderTatiana MD [address] [place] [address] [id number] Social History Tobacco Use Types Packs/Day Years [...] : 2 - Emergent Tracking Group : [facility] ED Salty Wolff RN - 03/13/2020 21:38 [...] 21:44:26 EDT) Problems(Active) Allergic rhinitis (SNOMED CT :754458588 ) Name of Problem: Allergic rhinitis ; Recorder: CONSTANTIN DARDEN RN; Confirmation: Confirmed ; Classification: Patient Stated ; Code: [id number] ; Contributor System: FyletChart ; Last Updated: 12/09/2014 8:09 EDT ; Life Cycle Date: 12/09/2014 ; Life Cycle Status: Active ; Vocabulary: SNOMED CT Angina (SNOMED CT :094222505 ) Name of Problem: Angina ; Recorder: CONSTANTIN DARDEN RN; Confirmation: Confirmed ; Classification: Patient Stated ; Code: [id number] ; Contributor System: FyletChart ; Last Updated: 12/09/2014 8:09 EDT ; Life Cycle Date: 12/09/2014 ; Life Cycle Status: Active ; Vocabulary: SNOMED CT Arthritis (SNOMED CT :9670326 ) Name of Problem: Arthritis ; Recorder: CONSTANTIN DARDEN RN; Confirmation: Confirmed ; Classification: Patient Stated ; Code: 3170935 ; Contributor System: PowerChart ; Last Updated: 12/09/2014 8:11 EDT ; Life Cycle Date: 12/09/2014 ; Life Cycle Status: Active ; Vocabulary: SNOMED CT At risk for sleep apnea (IMO :73449451 ) Name of Problem: At risk for sleep apnea ; Recorder: SYSTEM, SYSTEM; Confirmation: Confirmed ; Classification: Medical ; Code: 74611527 ; Last Updated: 07/01/2019 3:39 EDT ; Life Cycle Date: 07/01/2019 ; Life Cycle Status: Active ; Vocabulary: IMO Cardiac arrhythmia (SNOMED CT :8820944579 ) Name of Problem: Cardiac arrhythmia ; Recorder: CONSTANTIN DARDEN RN; Confirmation: Confirmed ; Classification: Patient Stated ; Code: 4969125612 ; Contributor System: PowerChart ; Last Updated: 12/09/2014 8:10 EDT ; Life Cycle Date: 12/09/2014 ; Life Cycle Status: Active ; Vocabulary: SNOMED CT Coronary artery disease (SNOMED CT :5441703520 ) Name of Problem: Coronary artery disease ; Recorder: CONSTANTIN DARDEN RN; Confirmation: Confirmed ; Classification: Patient Stated ; Code: 5186427553 ; Contributor System: FyletChart ; Last Updated: 12/09/2014 8:09 EDT ; Life Cycle Date: 12/09/2014 ; Life Cycle Status: Active ; Vocabulary: SNOMED CT Hard of hearing (SNOMED CT :315624209 ) Name of Problem: Hard of hearing ; Recorder: CONSTANTIN DARDEN RN; Confirmation: Confirmed ; Classification: Patient Stated ; Code: 501678427 ; Contributor System: PowerChart ; Last Updated: 12/09/2014 8:08 EDT ; Life Cycle Date: 12/09/2014 ; Life Cycle Status: Active ; Vocabulary: SNOMED CT Hyperlipidemia (SNOMED CT :19349082 ) Name of Problem: Hyperlipidemia ; Recorder: CONSTANTIN DARDEN RN; Confirmation: Confirmed ; Classification: Patient Stated ; Code: 02817846 ; Contributor System: PowerChart ; Last Updated: 07/31/2017 13:39 EST ; Life Cycle Date: 12/09/2014 ; Life Cycle Status: Active ; Vocabulary: SNOMED CT Hypertension (SNOMED CT :01634861 ) Name of Problem: Hypertension ; Recorder: CONSTANTIN DARDEN RN; Confirmation: Confirmed ; Classification: Patient Stated ; Code: 23656349 ; Contributor System: FyletChart ; Last Updated: 12/09/2014 8:09 EDT ; Life Cycle Date: 12/09/2014 ; Life Cycle Status: Active ; Vocabulary: SNOMED CT Myocardial infarction (SNOMED CT :70562023 ) Name of Problem: Myocardial infarction ; Recorder: CONSTANTIN DARDEN RN; Confirmation: Confirmed ; Classification: Patient Stated ; Code: 05953201 ; Contributor System: FyletChart ; Last Updated: 12/09/2014 8:11 EDT ; Life Cycle Date: 12/09/2014 ; Life Cycle Status: Active ; Vocabulary: SNOMED CT Renal calculi (SNOMED CT :095385470 ) Name of Problem: Renal calculi ; Recorder: CONSTANTIN DARDEN RN; Confirmation: Confirmed ; Classification: Patient Stated ; Code: 862377913 ; Contributor System: FyletChart ; Last Updated: 12/09/2014 8:12 EDT ; Life Cycle Date: 12/09/2014 ; Life Cycle Status: Active ; Vocabulary: SNOMED CT Stented coronary artery (SNOMED CT :5139976200 ) Name of Problem: Stented coronary artery ; Recorder: CONSTANTIN DARDEN RN; Confirmation: Confirmed ; Classification: Patient Stated ; Code: 6576848867 ; Contributor System: FyletChart ; Last Updated: 12/09/2014 8:09 EDT ; Life Cycle Date: 12/09/2014 ; Life Cycle Status: Active ; Vocabulary: SNOMED CT Diagnoses(Active) HTN - Hypertension Date: 03/13/2020 ; Diagnosis Type: Reason For Visit ; Confirmation: Complaint of ; Clinical Dx: HTN - Hypertension ; Classification: Medical ; Clinical Service: Emergency medicine ; Code: PNED ; Probability: 0 ; Diagnosis Code: [id number] ED Height and Weight Height Source : Stated Height Entry Format : [place] Height, Feet : 6 ft(Converted to: 183 cm, 72 Inch) Height, Inches : 0 Inch(Converted to: 0 ft 0 Inch, 0.00 cm) Clinical Height : 182.88 cm Weight Source, ED : Critical estimated dosing weight Weight Entry Format : [place] Weight, Pounds : 175 lb Clinical Dosing Weight : 79.55 kg Body Surface Area (BSA) : 2.01 m2 Body Mass Index : 23.8 kg/m2 [place] Body Weight (IBW) : 76.59 kg Salty Wolff RN - 03/13/2020 21:38 EDT documented in this encounter Plan of Treatment Not on file documented as of this encounter Visit Diagnoses Not on filedocumented in this encounter Care Teams Operations Research Manager Relationship Specialty Start Date End Date Allyson Avery APRN [address] [phone] PCP - General Nurse Practitioner 02/06/23 documented as of this encounter
--- OUTSIDE RECORDS SUMMARY | 2024-08-03 10:36 | XMS_ITS | Encounter Summary ---
Author Organization [facility] In [facility] Address [address] [place] [address] Care Team Providers Care Welder Plasma Arc Name Role Phone Allyson Avery YOKO Primary Care Provider + [phone] Encounter Details Date Type Department Care Team (Late st Contact Info) Description 03/13/2020 Transcribed Document [facility] [place] [address] [place] [address] ProviderTatiana MD [address] [place] [address] 761911 Social History Tobacco Use Types Packs/Day Years [...] EDT Height Source Stated Height Entry Format [place] Height/Length, CYPRIOT (ft) 6 ft Height/Length CYPRIOT 0 Inch CLINICALHEIGHT 182.88 cm [place] Body Weight 76.59 kg Weight Source, ED Critical estimated dosing weight Weight Entry Format [place] Weight [place] lb 175 lb CLINICALWEIGHT 79.55 kg Body [...] Triage: ED C-SSRS: ED Clinical Reconciliation: ED beef grinder: Saline Lock Insert: . Electrocardiogram: Time 03/13/2020 21:42:00, rate 55, No ST changes, no ectopy, normal MT & QRS intervals, EP Interp, The Rhythm [...] % 26.8 % Lymph # 1.30 x10(3)/uL [place] % 10.5 % HI [place] # 0.51 K/uL Eos % 4.1 % Eos # 0.20 x10(3)/uL Baso % 1.2 % Baso # 0.06 x10(3)/uL Slide Review No IG# 0.02 x10(3)/uL IG% 0.40 % Urine Type. U CleanCatch Urine Color Yellow Urine Appearance Clear Urine Specific [place] 1.021 Urine pH Dipstick 6.5 Urine Leukocyte Esterase Negative Urine Nitrite Negative Urine Protein Dipstick Negative Urine Glucose Dipstick Negative Urine Ketones Dipstick Negative Urine Urobilinogen Dipstick 0.2 EU/dL Urine Bilirubin Dipstick Negative Urine Blood Dipstick Negative Ur Mucous Trace . Radiology results: Radiology Results (Last 48 hours) [id number] -- 03/13/2020 21:29 CT Head WO (03/13/2020 [...] - 03/13/2020 22:40:00 , ROMAN NGUYEN MD-INT, Psychiatricist.. Plan Condition: Stable. Orders: Launch Orders Admit/Transfer/Discharge: Admit to Inpatient (Order): Start: 03/13/2020 22:50 EDT, Admit reason: near syncope/TIA/elevated troponin,palpitations, Estimated length of stay 2 Midnights or LONGER, Level of Care: Med-Surg with telemetry, Admitting: ROMAN NGUYEN MD-INT. Notes: I certify that the MLP/PODODERMATOLOGIST performed the services as delegated. , Discussed with Dr. Abel and agrees with plan of care.. documented in this encounter Plan of Treatment Not on file documented as of this encounter Visit Diagnoses Not on filedocumented in this encounter Care Teams Welder Plasma Arc Relationship Specialty Start Date End Date Allyson Avery APRN [address] [place] [address] [place] [phone] PCP - General Nurse Practitioner 02/06/23 documented as of this encounter
--- OUTSIDE RECORDS SUMMARY | 2024-08-03 10:36 | XMS_ITS | Encounter Summary ---
Author Organization [facility] Address [address] [place] [address] Care Team Providers Care Nursing Attendant Name Role Phone AveryAllyson YOKO Primary Care Provider + [phone] Encounter Details Date Type Department Care Team (Late st Contact Info) Description 03/15/2020 Transcribed Document [facility] [place] [address] [place] [address] ProviderTatiana MD [address] [place] [address] [id number] Social History Tobacco Use Types Packs/Day Years [...] On: 03/15/2020 15:28 EDT by CINDY GOMES RN-Shader And TonerWastewater Treatment Plant Instructor Progress Note Discharge Arrangements : Patient Post-Acute [...] Attend Multidisciplinary Rounds? 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 Plan [facility] today. 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 His daughter Jesika is also involved in his care [phone]. Patient's PCP is MARCO Duncan. 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 No prior rehab stay, home health, oxygen or DME. Patient's family will transport on discharge. DCP: Anticipate patient will discharge home with family. CM will follow for any needed referrals. CINDY GOMES RN-Shader And Toner - 03/15/2020 15:28 EDT documented in this encounter Plan of Treatment Not on file documented as of this encounter Visit Diagnoses Not on filedocumented in this encounter Care Teams Nursing Attendant Relationship Specialty Start Date End Date Allyson Avery APRN [address] [address] [place] [phone] PCP - General Nurse Practitioner 02/06/23 documented as of this encounter
--- OUTSIDE RECORDS SUMMARY | 2024-08-03 10:36 | XMS_ITS | Encounter Summary ---
Author Organization [facility] In iatives Address [address] [place] [address] Care Team Providers Care Founder And Chief Technical Officer Name Role Phone Allyson Avery YOKO Primary Care Provider + [phone] Encounter Details Date Type Department Care Team (Late st Contact Info) Description 03/14/2020 Transcribed Document [facility] [address] [place] [address] fJ Gallagher MD [address] [place] [address] [address] [place] [address] Social History Tobacco Use Types Packs/Day Years [...] None Author: JF GALLAGHER MD-INT Subjective PCP: [facility] DOA: 03/13/2020 DOD: HPI: 79 year-old gentleman admitted to the hospital with a near syncopal episode and possibly V. tach CODE STATUS: Modified code as documented in the chart intubation and full treatment but no ACLS CONSULTS: Cardiology, [facility] WORKUP / PROCEDURES: HOSPITAL FOLLOWUP: [...] Periph HR 70 (MAR 13:38) 70 (MAR 13:38) 70 (MAR 13:38) Resp Rate H 21 (MAR 14:) 15 (MAR 14 02:00) H 26 (MAR 13 23:00) SBP 99 (MAR 14) 99 (MAR 14:) H 155 (MAR 13:) DBP L 58 (MAR 14) L 58 (MAR 14) 77 (MAR 13:) MAP 73 (MAR 14:) 73 (MAR 14:) 100 (MAR 14 00:00) SpO2 100 (MAR 14) 98 (MAR 14 02:00) 100 (MAR 13:) General: Alert and oriented, Mild distress. Eye: [...] Results Review Radiology Results (Last 48 hours) [id number] -- 03/14/2020 08:12 CT Head WO (03/13/2020 [...] on filedocumented in this encounter Care Teams Founder And Chief Technical Officer Relationship Specialty Start Date End Date Allyson Avery, YOKO [address] [facility] [address] [place] [phone] PCP - General Nurse Practitioner 02/06/23 documented as of this encounter
--- OUTSIDE RECORDS SUMMARY | 2024-08-03 10:37 | XMS_ITS | Encounter Summary ---
Author Organization [facility] In iatives Address [address] [place] [address] Care Team Providers Care Teacher Vocational Training Name Role Phone Allyson Avery APRN Primary Care Provider + [phone] Encounter Details Date Type Department Care Team (Late st Contact Info) Description 07/01/2019 Transcribed Document [facility] [place] [address] [place] [address] ProviderTatiana MD [address] [place] [address] [phone] Social History Tobacco Use Types Packs/Day Years [...] ADMISSION: 07/01/2019 PRIMARY CARE: Allyson Avery APRN, [place], [place]. REFERRING PHSYCIAN: Dr. Baljinder Joseph, [facility] , 1940. CURRENT COMPLAINT: Chest pain, sweating. 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 He entered the emergency room [...] EKG revealed sinus rhythm, probably old inferior CO, incomplete right bundle branch block. Chest x-ray [...] doses are different than noted in his [facility] MAR. ALLERGIES: None. TOBACCO USE: None. ALCOHOL USE: None. OTHER HEALTH PROBLEMS: Include, idiopathic hypothyroidism, hyperlipidemia, history of nephrolithiasis, poor dentition and hearing loss. CHILDHOOD ILLNESSES: No rheumatic fever, diphtheria, tuberculosis, polio or jaundice. SURGICAL HISTORY: As noted above. FAMILY HISTORY: Hypertension, diabetes. SOCIAL HISTORY: Born and reared in [facility], finished high school. He did not attend [...] evaluation by Dr. Feldman or his associates. /[id number] Mathieulisa Capellan MD MGE/AQ / MGE / MODL CC1: Ms Tanisha Avery APRNCampbell, [place] CC2: Dr. Heath Feldman Electronically signed by [facility] Conversion Crane Crew Supervisor Cerner at 12/20/2022 12:25 PM CDT documented in this encounter Plan of Treatment Not on file documented as of this encounter Visit Diagnoses Not on filedocumented in this encounter Care Teams Teacher Vocational Training Relationship Specialty Start Date End Date Allyson Avery APRN [address] [place] [address] PCP - General Nurse Practitioner 02/06/23 documented as of this encounter
--- OUTSIDE RECORDS SUMMARY | 2024-08-03 10:37 | XMS_ITS | Encounter Summary ---
Author Organization [facility] In iatives Address [address] [place] [address] Care Team Providers Care Web Master Name Role Phone AveryAllyson la YOKO Primary Care Provider + [phone] Encounter Details Date Type Department Care Team (Late st Contact Info) Description 07/01/2019 Transcribed Document [facility] [place] [address] [place] [address] ProviderTatiana MD [address] [place] [address] 626221 Social History Tobacco Use Types Packs/Day Years [...] Ayubu, Sara, SWAN - 07/01/2019 8:22 EDT Electronically signed by [facility] Conversion Flow Match Sofa Cutter Cerner at 12/20/2022 12:08 PM CDT documented in this encounter Plan of Treatment Not on file documented as of this encounter Visit Diagnoses Not on filedocumented in this encounter Care Teams Web Master Relationship Specialty Start Date End Date Allyson Avery, YOKO [address] [phone] PCP - General Nurse Practitioner 02/06/23 documented as of this encounter
--- OUTSIDE RECORDS SUMMARY | 2024-08-03 10:37 | XMS_ITS | Encounter Summary ---
Author Organization [facility] In iatives Address [address] [place] [address] Care Team Providers Care Dietary Aid Name Role Phone Allyson Avery APRN Primary Care Provider + [phone] Encounter Details Date Type Department Care Team (Late st Contact Info) Description 07/01/2019 Transcribed Document [facility] [place] [address] [place] [address] ProviderTatiana MD [address] [place] [address] 320211 Social History Tobacco Use Types Packs/Day Years [...] On: 07/01/2019 3:39 EDT by Sixto Shelton, RN Provider Notification Provider Notified of Concerns/Results : Fever Provider Notified of : Nurse concerns Provider Notified Name : ROMAN NGUYEN MD-INT Sixto Shelton RN - 07/01/2019 4:56 EDT documented in this encounter Plan of Treatment Not on file documented as of this encounter Visit Diagnoses Not on filedocumented in this encounter Care Teams Dietary Aid Relationship Specialty Start Date End Date Allyson Avery APRN [address] [place] [address] [place] [phone] PCP - General Nurse Practitioner 02/06/23 documented as of this encounter
--- OUTSIDE RECORDS SUMMARY | 2024-08-03 10:37 | XMS_ITS | Encounter Summary ---
Author Organization In [facility]atives Address [address] [place] [address] Care Team Providers Care Grizzlyman Name Role Phone Bennie Allyson APRN Primary Care Provider + [phone] Encounter Details Date Type Department Care Team (Late st Contact Info) Description 07/02/2019 Transcribed Document [facility] [place] [address] [place] [address] ProviderTatiana MD [address] [place] [address] Social History Tobacco Use Types Packs/Day Years Used Date Smoking Tobacco: Never Assessed Sex and Gender Information Value Date Recorded Sex Assigned at Not on file Legal Sex Male 5:33 PM CDT Gender Identity Not on file Sexual Orientation Not on file documented as of this encounter Miscellaneous Notes * Cerner Conversion Note - Tatiana Polanco MD - 07/02/2019 12:40 PM CDT [facility] [place] [place] [address] MEET MENCHACA :1940 Visit Time:07/01/2019 Your [...] made Where: [address] [place] [phone] Business (1) Medications What How Much When Instructions Next Dose metoprolol (Metoprolol Tartrate 25 mg oral tablet) 0.5 Tablet(s) Oral Two Times A Day Refills: 3 Pickup at [facility] esomeprazole (NexIUM 40 mg oral delayed release [...] 2 Capsule(s) Oral Every Day Pharmacy Information [facility]: [address] [place], [place] [phone] Take your medications faithfully. Do NOT skip [...] to eat less sodium. Medicines ??? Take dxeu-ynk-nwlntrt and prescription medicines only as told by [...] right away. Call your local emergency services (759 in the [place] Do not drive yourself to the hospital. If you ever feel like you may hurt yourself or others, or have thoughts about taking your own life, get help right away. You can go to your nearest emergency department or call: ??? Emergency services (468 in the [place] ??? A suicide crisis [...] 08/19/2006 Document Revised: 04/29/2018 Document Reviewed: 04/29/2018 [employer] Interactive Patient Education ?? 2019 [employer] Emergency Awareness and Preventative Care STROKE [...] Assistance with quitting is available by contacting 5-468-CDPI-NOW. This is a free resource providing counseling, [...] range between ( 0.0 and 7.0 ) [place] #: 0.36 K/uL -- Normal range between ( 0.16 and 1.00 ) Eos #: 0.17 x10(3)/uL -- Normal range between ( 0.00 and 0.80 ) [place] %: 3.9 % -- Normal range between [...] EU/dL Urine Protein Dipstick: Negative Urine Color: Grere Ur WBC: 0-2 /HPF Urine Ketones Dipstick: 15 Ur Mucous: Trace Urine pH Dipstick: 5.5 -- Normal range between ( 6.0 and 8.0 ) Urine Bilirubin Dipstick: Small Urine Specific [place]: 1.024 -- Normal range between ( 1.005 [...] 10:03 AM US Gallbladder: US Gallbladder Patient Name:RUBY MENCHACALianet Wilson I have received and understand this information and was given the opportunity to ask questions. Patient/Furnace Brazer Name: Patient/Furnace Brazer Signature: Relationship to Patient: Clinician/Hospital Furnace Brazer Signature: Date: documented in this encounter Plan of Treatment Not on file documented as of this encounter Visit Diagnoses Not on filedocumented in this encounter Care Teams Grizzlyman Relationship Specialty Start Date End Date Allyson Avery, BIOLOGY SPECIMEN TECHNICIAN [address] [address] [place] [address] PCP - General Nurse Practitioner 02/06/23 documented as of this encounter
--- OUTSIDE RECORDS SUMMARY | 2024-08-03 10:37 | XMS_ITS | Encounter Summary ---
Author Organization [employer] [facility] In iatives Address [address] [place] [address] Care Team Providers Care Tablet Technician Name Role Phone AveryAllyson la YOKO Primary Care Provider + [phone] Encounter Details Date Type Department Care Team (Late st Contact Info) Description 07/01/2019 Transcribed Document [facility] [place] [address] [place] [address] ProviderTatiana MD [address] [place] [address] [phone] Social History Tobacco Use Types Packs/Day Years [...] Associated Diagnoses: Chest pain; Elevated troponin Author: SMION PALACIOS PA-C Basic Information Additional information: Chief [...] Employment/School 12/28/2015 Status: Retired 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: 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 Highest education: High school Hazardous [...] EDT Height Source Stated Height Entry Format [place] Height/Length, GER[place] (ft) 5 ft Height/Length [place] 9 Inch CLINICALHEIGHT 175.26 cm [place] Log Body Weight 69.73 kg Weight Source, ED Critical estimated dosing weight Weight Entry Format [place] Weight [place] lb 182 lb CLINICALWEIGHT 82.73 kg Body [...] ED Adult Triage: ED Clinical Reconciliation: ED tap builder: Normal Saline Flush: 10 mL, IV Push, [...] % LOW Lymph # 0.43 x10(3)/uL LOW [place] % 3.7 % [place] # 0.41 K/uL Eos % 0.3 % [...] treatment plan, Patient indicated understanding of instructions. documented in this encounter Plan of Treatment Not on file documented as of this encounter Visit Diagnoses Not on filedocumented in this encounter Care Teams Tablet Technician Relationship Specialty Start Date End Date Allyson Avery, YOKO [address] [phone] PCP - General Nurse Practitioner 02/06/23 documented as of this encounter
--- OUTSIDE RECORDS SUMMARY | 2024-08-03 10:37 | XMS_ITS | Encounter Summary ---
Author Organization [employer] In iatives Address [address] [place] [address] Care Team Providers Care Junk Dealer Name Role Phone Allyson Avery APRN Primary Care Provider + [phone] Encounter Details Date Type Department Care Team (Late st Contact Info) Description 07/01/2019 Transcribed Document [facility] [facility] [place] [address] ProviderTatiana MD [address] [place] [address] [id number] Social History Tobacco Use Types Packs/Day Years Used Date Smoking Tobacco: Never Assessed Sex and Gender Information Value Date Recorded Sex Assigned at Not on file Legal Sex Male 5:33 PM CDT Gender Identity Not on file Sexual Orientation Not on file documented as of this encounter Miscellaneous Notes * Cerner Conversion Note - Historical ProviderMD - 07/01/2019 3:26 AM CDT Admission [...] Family History of Anesthesia Reaction : None Sixto Shelton RN - 07/01/2019 3:26 EDT Functional [...] Son Legal Guardian : No Support Person/Patient Inside Steward/Stewardess : Yes Support Person/Pt Rep Name : Perlita Fitzgerald Contact Password : Melissa Support Person/Pt Rep Contact Information : [phone] Want Family/Rep/Phys Notified of Admit : No [...] Obtained From : Patient Primary Language : Turkish Preferred Communication Mode : Verbal Communication Barrier [...] Scale Risk Level : 25-45 Medium Risk Mohawk Fall Interventions : Adequate lighting, Assistive devices [...] Source : Stated Height Entry Format : [place] Height, Feet : 5 ft(Converted to: 152 cm, 60 Inch) Height, Inches : 9 Inch(Converted to: 0 ft 9 Inch, 22.86 cm) Clinical Height : 175.26 cm Weight Source : Stated [place] Body Weight : 70 kg Sixto Shelton RN - 07/01/2019 3:26 EDT Estimated Weight Type of Weight Measurement Est : [place] Weight, est lb : 182 lb(Converted to: [...] Any Spiritual/Cultural Needs or Requests : No Adventism Preference : [employer] Sixto Shelton RN - 07/01/2019 3:26 EDT Valuables and Belongings Valuables and Belongings : Clothing Clothing : Common streetwear Clothing Disposition : Bedside Sixto Shelton RN - 07/01/2019 3:26 EDT documented in this encounter Plan of Treatment Not on file documented as of this encounter Visit Diagnoses Not on filedocumented in this encounter Care Teams Junk Dealer Relationship Specialty Start Date End Date Allyson Avery, YOKO [address] [place] [address] [place] [address] PCP - General Nurse Practitioner 02/06/23 documented as of this encounter
--- OUTSIDE RECORDS SUMMARY | 2024-08-03 10:37 | XMS_ITS | Encounter Summary ---
Author Organization [facility] In iatives Address [address] [place] [address] Care Team Providers Care Interpreter Deaf Name Role Phone Bennie Allyson BABCOCK Primary Care Provider + [phone] Encounter Details Date Type Department Care Team (Late st Contact Info) Description 07/02/2019 Transcribed Document [facility] [place] Family Medicine [facility] [place] [address] ProviderTatiana MD [address] [place] [address] [id number] Social History Tobacco Use Types Packs/Day Years Used Date Smoking Tobacco: Never Assessed Sex and Gender Information Value Date Recorded Sex Assigned at Not on file Legal Sex Male 5:33 PM CDT Gender Identity Not on file Sexual Orientation Not on file documented as of this encounter Miscellaneous Notes * Cerner Conversion Note - Historical ProviderMD - 07/02/2019 9:26 AM CDT UM Authorization Entered On: 07/02/2019 9:26 EDT Performed On: 07/02/2019 9:26 EDT by TERRI JIMENEZ Rn-Utilization Review Primary Insurance Authorization Authorization and Policy Numbers : Insurance 1 Health Plan: MEDICARE Policy Number: [id number] Authorization Number: Insurance 2 Health Plan: AARP N Policy Number: [id number] Authorization Number: Insurance Primary Name : MEDICARE Policy Number: [id number] AARP N Policy Number: [id number] Historical Authorization Comments-Primary : No Authorization Comments Found TERRI JIMENEZ Rn-Utilization Review - 07/02/2019 9:26 EDT documented in this encounter Plan of Treatment Not on file documented as of this encounter Visit Diagnoses Not on filedocumented in this encounter Care Teams Interpreter Deaf Relationship Specialty Start Date End Date Allyson Avery, YOKO [address] [address] PCP - General Nurse Practitioner 02/06/23 documented as of this encounter
--- OUTSIDE RECORDS SUMMARY | 2024-08-03 10:37 | XMS_ITS | Encounter Summary ---
Author Organization [facility] In iatives Address [address] [place] [address] Care Team Providers Care Solvent Plant Operator Name Role Phone Bennie Allyson BABCOCK Primary Care Provider + [phone] Encounter Details Date Type Department Care Team (Late st Contact Info) Description 07/01/2019 Transcribed Document [facility] [place] [address] [place] [address] ProviderTatiana MD [address] [place] [address] [id number] Social History Tobacco Use Types Packs/Day Years Used Date Smoking Tobacco: Never Assessed Sex and Gender Information Value Date Recorded Sex Assigned at Not on file Legal Sex Male 5:33 PM CDT Gender Identity Not on file Sexual Orientation Not on file documented as of this encounter Miscellaneous Notes * Cerner Conversion Note - Historical ProviderMD - 07/01/2019 4:15 AM CDT Pain [...] form. Electronically signed by Aruna Ortiz Conversion Supervisor [employer] Cerner at 12/20/2022 12:30 PM CDT documented in this encounter Plan of Treatment Not on file documented as of this encounter Visit Diagnoses Not on filedocumented in this encounter Care Teams Solvent Plant Operator Relationship Specialty Start Date End Date Allyson Avery, YOKO [address] [address] PCP - General Nurse Practitioner 02/06/23 documented as of this encounter
--- OUTSIDE RECORDS SUMMARY | 2024-08-03 10:37 | XMS_ITS | Encounter Summary ---
Author Organization [employer] In iatives Address [address] [place] [address] Care Team Providers Care Manager Sas Name Role Phone Allyson Avery YOKO Primary Care Provider + [phone] Encounter Details Date Type Department Care Team (Late st Contact Info) Description 07/02/2019 Transcribed Document [facility] 1 [place] [address] Jf Gallagher MD [address] [place] [address] [address] [place] [address] Social History Tobacco Use Types Packs/Day Years [...] None Author: JF GALLAGHER MD-INT Subjective PCP: [facility] DOA: 07/01/2019 DOD: 07/02/2019 HPI: Patient admitted with chest pain, elevated troponin and 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 CODE STATUS: Full code CONSULTS: [facility] cardiology WORKUP / PROCEDURES: GALLBLADDER ULTRASOUND FINDINGS: [...] Results Review Radiology Results (Last 48 hours) [id number] -- 07/01/2019 01:59 CR Chest 1 Vw [...] pain with elevated troponin, likely non-ST elevation NM? Followed by cardiology and cleared for discharge. [...] filedocumented in this encounter Care Teams Manager Sas Relationship Specialty Start Date End Date Allyson Avery, YOKO [address] [address] [place] [phone] PCP - General Nurse Practitioner 02/06/23 documented as of this encounter
--- OUTSIDE RECORDS SUMMARY | 2024-08-03 10:37 | XMS_ITS | Encounter Summary ---
Author Organization [facility] Address [address] [place] [address] Care Team Providers Care Grocery Worker Name Role Phone Allyson Avery APRN Primary Care Provider [phone] Encounter Details Date Type Department Care Team [...] Description 08/05/2024 1:45 PM EST Office Visit [facility] [address] [place] [address] [place] Kaplan MD [address] [address] documented as of this encounter Visit Diagnoses Not on filedocumented in this encounter Additional Health Concerns Assessment Noted Time A fall risk assessment has been complete d for the patient 07/30/2023 2:24 PM EST A Body Mass Index follow-up plan has been documented for the patient 07/30/2023 3:31 PM EST documented as of this encounter Care Teams Grocery Worker Relationship Specialty Start Date End Date Allyson Avery APRN [address] [place] [address] PCP - General 01/13/21 documented as of this encounter
--- OUTSIDE RECORDS SUMMARY | 2024-08-03 10:37 | XMS_ITS | Encounter Summary ---
Author Organization [facility] In iatives Address [address] [place] [address] Care Team Providers Care Domestic Helper Name Role Phone Unavailable Primary Care Provider Gillian e Encounter Details Date Type Department Care Team (Late st Contact Info) Description 07/01/2019 Historic Encounter [address] [address] ProviderBelle Historical Social History Tobacco [...] Routine 07/01/2019 6:50 AM EDT AUTOMATED DIFFERENTIAL ([facility] BKR DATA CONV) Routine 07/01/2019 12:50 AM EDT documented in this encounter Results * (ABNORMAL) Glucose, Point of Care (07/01/2019 6:50 AM EDT) Glucose POC2 170(H) 70 - 110 mg/dL 07/01/2019 10:50 AM EDT [facility] Survey Instrument Operator [id number] 07/01/2019 10:50 AM EDT [facility] Device SN [id number] 07/01/2019 10:50 AM EDT [facility] Device Comment1 Notified Nurse RBV 07/01/2019 10:50 AM EDT [facility] Blood 07/01/2019 6:50 AM EDT 07/01/2019 10:55 AM EDT [facility] Historical Provider POINT OF CARE TEST ALIZEKatie IRVING Final Result [facility] 1 [place] [address], [facility] [phone] * (ABNORMAL) AUTOMATED DIFFERENTIAL ([facility] BKR DATA CONV) (07/01/2019 12:50 AM EDT) Neut% 91.4(H) 34.0 - 71.0 % 07/01/2019 5:24 AM EDT Lymph% 3.8(L) 19.3 - 53.1 % 07/01/2019 5:24 AM EDT Mcpherson% 3.7 3.0 - 9.0 % 07/01/2019 5:24 AM EDT Eos% 0.3 0.0 - 7.0 % 07/01/2019 5:24 AM EDT Baso% 0.4 0.0 - 1.5 % 07/01/2019 5:24 AM EDT IG% 0.40 0.00 - 0.60 % 07/01/2019 5:24 AM EDT Neut# 10.23(H) 1.56 - 6.13 K/uL 07/01/2019 5:24 AM EDT Lymph# 0.43(L) 1.00 - 3.90 x10(3)/uL 07/01/2019 5:24 AM EDT Mcpherson# 0.41 0.16 - 1.00 K/uL 07/01/2019 5:24 AM EDT Eos# 0.03 0.00 - 0.80 x10(3)/uL 07/01/2019 5:24 AM EDT Baso# 0.05 0.00 - 0.20 x10(3)/uL 07/01/2019 5:24 AM EDT IG# 0.05 0.00 - 0.05 x10(3)/uL 07/01/2019 5:24 AM EDT Blood 07/01/2019 12:5 0 AM EDT 07/01/2019 4:55 AM EDT Narrative [facility] - 07/01/2019 5:25 AM EDT Added by Discern Expert us Sleh Historical Provider LAB BLOOD ORDERABLES Fi nal Result Performing Organization Address City/State/[facility] Co de Phone Number [facility] [address] [phone] documented in this encounter Visit Diagnoses Not on filedocumented in this encounter
--- OUTSIDE RECORDS SUMMARY | 2024-08-03 10:37 | XMS_ITS | Encounter Summary ---
Author Organization [facility] In iatives Address [address] [place] [address] Care Team Providers Care Family Practitioner Name Role Phone Bennie Allyson BABCOCK Primary Care Provider + [phone] Encounter Details Date Type Department Care Team (Late st Contact Info) Description 07/01/2019 Transcribed Document [facility] [place] [address] [place] [address] ProviderTatiana MD [address] [place] [address] [phone] Social History Tobacco Use Types Packs/Day Years [...] - 07/01/2019 0:39 EDT Tracking Group : [facility] ED Sue Anderson RN - 07/01/2019 0:33 [...] Recent Thoughts of Harming/Killing Others : No It Coordinator Needed : No Oriana Bautista RN - [...] 00:41:51 EDT) Problems(Active) Allergic rhinitis (SNOMED CT :136796162 ) Name of Problem: Allergic rhinitis ; Recorder: CONSTANTIN DARDEN RN; Confirmation: Confirmed ; Classification: Patient Stated ; Code: 598724241 ; Contributor System: PowerChart ; Last Updated: 12/09/2014 8:09 EDT ; Life Cycle Date: 12/09/2014 ; Life Cycle Status: Active ; Vocabulary: SNOMED CT Angina (SNOMED CT :562166970 ) Name of Problem: Angina ; Recorder: CONSTANTIN DARDEN RN; Confirmation: Confirmed ; Classification: Patient Stated ; Code: 964855627 ; Contributor System: PowerChart ; Last Updated: 12/09/2014 8:09 EDT ; Life Cycle Date: 12/09/2014 ; Life Cycle Status: Active ; Vocabulary: SNOMED CT Arthritis (SNOMED CT :2308602 ) Name of Problem: Arthritis ; Recorder: CONSTANTIN DARDEN RN; Confirmation: Confirmed ; Classification: Patient Stated ; Code: 5707069 ; Contributor System: Phosphate TherapeuticsChart ; Last Updated: 12/09/2014 8:11 EDT ; Life Cycle Date: 12/09/2014 ; Life Cycle Status: Active ; Vocabulary: SNOMED CT Cardiac arrhythmia (SNOMED CT :6832196109 ) Name of Problem: Cardiac arrhythmia ; Recorder: CONSTANTIN DARDEN RN; Confirmation: Confirmed ; Classification: Patient Stated ; Code: 8847100999 ; Contributor System: Phosphate TherapeuticsChart ; Last Updated: 12/09/2014 8:10 EDT ; Life Cycle Date: 12/09/2014 ; Life Cycle Status: Active ; Vocabulary: SNOMED CT Coronary artery disease (SNOMED CT :2657086593 ) Name of Problem: Coronary artery disease ; Recorder: CONSTANTIN DARDEN RN; Confirmation: Confirmed ; Classification: Patient Stated ; Code: 3142603600 ; Contributor System: PowerChart ; Last Updated: 12/09/2014 8:09 EDT ; Life Cycle Date: 12/09/2014 ; Life Cycle Status: Active ; Vocabulary: SNOMED CT Hard of hearing (SNOMED CT :619100379 ) Name of Problem: Hard of hearing ; Recorder: CONSTANTIN DARDEN RN; Confirmation: Confirmed ; Classification: Patient Stated ; Code: 842904416 ; Contributor System: PowerChart ; Last Updated: 12/09/2014 8:08 EDT ; Life Cycle Date: 12/09/2014 ; Life Cycle Status: Active ; Vocabulary: SNOMED CT Hyperlipidemia (SNOMED CT :92228975 ) Name of Problem: Hyperlipidemia ; Recorder: CONSTANTIN DARDEN RN; Confirmation: Confirmed ; Classification: Patient Stated ; Code: 75441229 ; Contributor System: PowerChart ; Last Updated: 07/31/2017 13:39 EST ; Life Cycle Date: 12/09/2014 ; Life Cycle Status: Active ; Vocabulary: SNOMED CT Hypertension (SNOMED CT :41384255 ) Name of Problem: Hypertension ; Recorder: CONSTANTIN DARDEN RN; Confirmation: Confirmed ; Classification: Patient Stated ; Code: 61139354 ; Contributor System: PowerChart ; Last Updated: 12/09/2014 8:09 EDT ; Life Cycle Date: 12/09/2014 ; Life Cycle Status: Active ; Vocabulary: SNOMED CT Myocardial infarction (SNOMED CT :05847093 ) Name of Problem: Myocardial infarction ; Recorder: CONSTANTIN DARDEN RN; Confirmation: Confirmed ; Classification: Patient Stated ; Code: 97191100 ; Contributor System: Phosphate TherapeuticsChart ; Last Updated: 12/09/2014 8:11 EDT ; Life Cycle Date: 12/09/2014 ; Life Cycle Status: Active ; Vocabulary: SNOMED CT Renal calculi (SNOMED CT :633959354 ) Name of Problem: Renal calculi ; Recorder: CONSTANTIN DARDEN RN; Confirmation: Confirmed ; Classification: Patient Stated ; Code: 193524382 ; Contributor System: PowerChart ; Last Updated: 12/09/2014 8:12 EDT ; Life Cycle Date: 12/09/2014 ; Life Cycle Status: Active ; Vocabulary: SNOMED CT Stented coronary artery (SNOMED CT :0358730776 ) Name of Problem: Stented coronary artery ; Recorder: CONSTANTIN DARDEN RN; Confirmation: Confirmed ; Classification: Patient Stated ; Code: 8739259374 ; Contributor System: Phosphate TherapeuticsChart ; Last Updated: 12/09/2014 8:09 EDT ; Life Cycle Date: 12/09/2014 ; Life Cycle Status: Active ; Vocabulary: SNOMED CT Diagnoses(Active) Chest pain Date: 07/01/2019 ; Diagnosis Type: Reason For Visit ; Confirmation: Complaint of ; Clinical Dx: Chest pain ; Classification: Medical ; Clinical Service: Emergency medicine ; Code: PNED ; Probability: 0 ; Diagnosis Code: [id number] ED Height and Weight Height Source : Stated Height Entry Format : [place] Height, Feet : 5 ft(Converted to: 152 cm, 60 Inch) Height, Inches : 9 Inch(Converted to: 0 ft 9 Inch, 22.86 cm) Clinical Height : 175.26 cm Weight Source, ED : Critical estimated dosing weight Weight Entry Format : [place] Weight, Pounds : 182 lb Clinical Dosing Weight : 82.73 kg Body Surface Area (BSA) : 1.99 m2 Body Mass Index : 26.9 kg/m2 (HI) [place] Body Weight (IBW) : 69.73 kg Oriana Bautista RN - 07/01/2019 0:39 EDT Electronically signed by [facility] Conversion Land Leasing Examiner Cerner at 12/20/2022 12:20 PM CDT documented in this encounter Plan of Treatment Not on file documented as of this encounter Visit Diagnoses Not on filedocumented in this encounter Care Teams Family Practitioner Relationship Specialty Start Date End Date Allyson Avery APRN [address] [address] PCP - General Nurse Practitioner 02/06/23 documented as of this encounter
--- OUTSIDE RECORDS SUMMARY | 2024-08-03 10:37 | XMS_ITS | Encounter Summary ---
Author Organization [facility] In iatives Address [address] [place] [address] Care Team Providers Care Pallet Stone Positioner Name Role Phone Unavailable Primary Care Provider Gillian e Encounter Details Date Type Department Care Team (Late st Contact Info) Description 07/01/2019 Historic Encounter [address] [address] ProviderBelle Historical Social History Tobacco [...] Associated Diagnosis Comments BMP BASIC METABOLIC PANEL ([facility] BKR DATA CONV) Routine 07/02/2019 6:20 AM EDT GLUCOSE-POC Routine 07/02/2019 5:37 AM EDT GLUCOSE-POC Routine 07/01/2019 9:07 PM EDT LIPID PANEL Routine 07/01/2019 4:51 AM EDT HEMOGLOBIN A1C Routine 07/01/2019 4:51 AM EDT CBC W/ AUTO DIFF ([facility] BKR DATA CONV) Routine 07/01/2019 12:50 AM EDT documented in this encounter Results * (ABNORMAL) BMP BASIC METABOLIC PANEL ([facility] BKR DATA CONV) (07/02/2019 6:20 AM EDT) Glucose Level 143(H) 74 - 106 mg/dL 07/02/2019 11:05 AM EDT Comment: [facility] has become aware of sulfasalazine and sulfapyridine [...] Provider LAB BLOOD ORDERABLES Fi nal Result [facility] [address] [phone] * (ABNORMAL) Glucose, Point of Care (07/02/2019 5:37 AM EDT) Glucose POC2 127(H) 70 - 110 mg/dL 07/02/2019 9:37 AM EDT [facility] Senior Validation Engineer [id number] 07/02/2019 9:37 AM EDT [facility] Device SN [id number] 07/02/2019 9:37 AM EDT [facility] Device Comment1 Notified Nurse RBV 07/02/2019 9:37 AM EDT [facility] Blood 07/02/2019 5:37 AM EDT 07/02/2019 9:41 AM EDT [facility] Provider POINT OF CARE TEST ORDE RABLES Final Result Performing Organization Address City/[facility]/ZIP Co de Phone Number [facility] [address] [phone] * (ABNORMAL) Glucose, Point of Care (07/01/2019 9:07 PM EDT) Glucose POC2 118(H) 70 - 110 mg/dL 07/02/2019 1:07 AM EDT [facility] Senior Validation Engineer [id number] 07/02/2019 1:07 AM EDT [facility] Device SN [id number] 07/02/2019 1:07 AM EDT [facility] Device Comment1 Notified Nurse RBV 07/02/2019 1:07 AM EDT [facility] Blood 07/01/2019 9:07 PM EDT 07/02/2019 1:11 AM EDT [facility] Provider POINT OF CARE TEST ORDE RABLES Final Result [facility] [address] [phone] * HEMOGLOBIN A1C (07/01/2019 4:51 AM EDT) [...] Provider LAB BLOOD ORDERABLES Fi nal Result [facility] [address] [phone] * LIPID PANEL (07/01/2019 4:51 AM EDT) [...] 4:51 AM EDT 07/01/2019 9:03 AM EDT [facility] Historical Provider PATHOLOGY/CYTOLOGY ORDE [facility] Final Result Performing Organization Address City/State/[facility] Co de Phone Number [facility] [address] [place] [address] * (ABNORMAL) CBC W/ AUTO DIFF ([facility] BKR DATA CONV) (07/01/2019 12:50 AM [...] 0 AM EDT 07/01/2019 4:55 AM EDT [facility] Historical Provider LAB BLOOD ORDERABLES Fi nal Result [facility] [address] [phone] documented in this encounter Visit Diagnoses Not on filedocumented in this encounter
--- OUTSIDE RECORDS SUMMARY | 2024-08-03 10:37 | XMS_ITS | Encounter Summary ---
Author Organization [facility] In iatives Address [address] [place] [address] Care Team Providers Care Highway Construction Inspector Name Role Phone Unavailable Primary Care Provider Gillian e Encounter Details Date Type Department Care Team (Late st Contact Info) Description 07/01/2019 Historic Encounter [address] [address] ProviderBelle Historical Social History Tobacco [...] 11:02 AM EDT ESR SEDIMENTATION RATE AUTO ([facility] BKR DATA CONV) Routine 07/01/2019 4:51 AM EDT TROPONIN I ULTRA ([facility] BKR DATA CONV) Routine 07/01/2019 4:51 AM EDT CMP COMPREHENSIVE METABOLIC PANEL ([facility] BKR DATA CONV) Routine 07/01/2019 12:50 AM EDT documented in this encounter Results * (ABNORMAL) Glucose, Point of Care (07/02/2019 11:02 AM EDT) Glucose POC2 260(H) 70 - 110 mg/dL 07/02/2019 3:02 PM EDT [facility] Tube Station Attendant [id number] 07/02/2019 3:02 PM EDT [facility] Device SN [id number] 07/02/2019 3:02 PM EDT [facility] Device Comment1 Notified Nurse RBV 07/02/2019 3:02 PM EDT [facility] Blood 07/02/2019 11:0 2 AM EDT 07/02/2019 3:05 PM EDT [facility] Historical Provider POINT OF CARE TEST ORDE RABLES Final Result Performing Organization Address [facility] de Phone Number [facility] [address] [phone] * (ABNORMAL) TROPONIN I ULTRA ([facility] BKR DATA CONV) (07/01/2019 4:51 AM EDT) TroponinI Ultra 0.137(H) 0.015 - 0.045 ng/mL 07/01/2019 9:16 AM EDT Comment: Troponin Result (ng/ml) ?* Interpretation 0.015 ? 0.045 ?* ??Normal; less than 99th percentile of normal range >0.045 ? * Abnormal; greater than 99th percentile of normal range. ?? Test precision at 0.045 ng/ml is less than 10% Coefficient of Variation. Blood 07/01/2019 4:51 AM EDT 07/01/2019 9:03 AM EDT [facility] Historical Provider LAB BLOOD ORDERABLES Fi nal Result Performing Organization Address [facility] de Phone Number [facility] [address] [phone] * ESR SEDIMENTATION RATE AUTO ([facility] BKR DATA CONV) (07/01/2019 4:51 AM EDT) Sed Rate Auto 6 0 - 20 mm/Hr 07/01/2019 9:09 AM EDT Blood 07/01/2019 4:51 AM EDT 07/01/2019 8:56 AM EDT [facility] Historical Provider LAB BLOOD ORDERABLES Fi nal Result [facility] [address] [phone] * (ABNORMAL) CMP COMPREHENSIVE METABOLIC PANEL ([facility] BKR DATA CONV) (07/01/2019 12:50 AM EDT) [...] 106 mg/dL 07/01/2019 5:19 AM EDT Comment: [facility] has become aware of sulfasalazine and sulfapyridine [...] Units/Lit er 07/01/2019 5:19 AM EDT Comment: [facility] has become aware of sulfasalazine and sulfapyridine [...] Units/Lit er 07/01/2019 5:19 AM EDT Comment: [facility] has become aware of sulfasalazine and sulfapyridine [...] AM EDT 07/01/2019 5:04 AM EDT us [facility] Historical Provider LAB BLOOD ORDERABLES Fi nal Result [facility] [address] [phone] documented in this encounter Visit Diagnoses Not on filedocumented in this encounter
--- OUTSIDE RECORDS SUMMARY | 2024-08-03 10:37 | XMS_ITS | Encounter Summary ---
Author Organization [facility] Init iatives Address [address] [facility] [place] [address] Care Team Providers Care Manager Developmental Name Role Phone Unavailable Primary Care Provider Unavailabl e Encounter Details Date Type Department Care Team (Late st Contact Info) Description 07/01/2019 Historic Encounter [facility] [address] [place] [address] Provider, [facility] Historical Social History Tobacco Use Types Packs/Day [...] Name Priority Date/Time Associated Diagnosis Comments PROBNP ([facility] BKR DATA CONV Routine 07/01/2019 12:50 AM EDT documented in this encounter Results * PROBNP ([facility] BKR DATA CONV (07/01/2019 12:50 AM EDT) ProBNP 379 0 - 450 pg/mL 07/01/2019 5:19 AM EDT Blood 07/01/2019 12:5 0 AM EDT 07/01/2019 5:04 AM EDT us [facility] Historical Provider LAB BLOOD ORDERABLES Fi nal Result [facility] [address] [place], [place] [address] [phone] documented in this encounter Visit Diagnoses Not on filedocumented in this encounter
--- OUTSIDE RECORDS SUMMARY | 2024-08-03 10:37 | XMS_ITS | Encounter Summary ---
Author Organization [employer] [facility] Address [address] [place] [address] Care Team Providers Care Sulphate Tester Name Role Phone Bennie Allyson YOKO Primary Care Provider + [phone] Encounter Details Date Type Department Care Team (Late st Contact Info) Description 07/02/2019 Transcribed Document [facility] Family Medicine [address] [place] [address] ProviderTatiana MD [address] [place] [address] [id number] Social History Tobacco Use Types Packs/Day Years [...] Performed On: 07/02/2019 13:04 EDT by Heath Haywood, fireperson Documentation Discharge Date/Time : 07/02/2019 13:04 EDT [...] materials Teaching Evaluation : Verbalizes understanding Heath Haywood, RN - 07/02/2019 13:04 EDT Electronically signed by Angel, [facility] Conversion Community Recreation Programmer Cerner at 12/20/2022 12:26 PM CDT documented in this encounter Plan of Treatment Not on file documented as of this encounter Visit Diagnoses Not on filedocumented in this encounter Care Teams Sulphate Tester Relationship Specialty Start Date End Date Allyson Avery, YOKO [address] [place] [address] [place] [address] PCP - General Nurse Practitioner 02/06/23 documented as of this encounter
--- OUTSIDE RECORDS SUMMARY | 2024-08-03 10:37 | XMS_ITS | Encounter Summary ---
Author Organization [facility] Address [address] [place] [address] Care Team Providers Care Laborer/Key Man Name Role Phone Allyson Avery MINE BOSS Primary Care Provider [phone]- [phone] Encounter Details Date Type Department Care Team (Late st Contact Info) Description 07/30/2023 2:30 PM EST Office Visit [facility] [address] [place] [address] Heath Kaplan MD [address] [address] Cataract, nuclear sclerotic senile, right [...] choroidal lesions Refraction Wearing Rx Sphere Cylinder Rillito Add Right -2.50 +2.00 176 +2.50 Left -1.50 +0.75 013 +2.50 Type: Bifocal Manifest Refraction (Auto) Sphere Cylinder Rillito Dist [place] Add Right -3.25 +1.50 165 20/25-2 Left -1.50 +1.00 175 20/30-2 Manifest Refraction #2 Sphere Cylinder Rillito Dist VA Add Right -2.25 +1.50 165 20/25+2 +2.50 Left -2.00 +0.75 030 20/25 +2.50 Final Rx Sphere Cylinder Rillito Dist VA Add Right -2.25 +1.50 165 [...] [facility] [address] [place] [address] Heath Kaplan MD [address] [address] documented as of this encounter [...] documented as of this encounter Care Teams Laborer/Key Man Relationship Specialty Start Date End Date Allyson Avery APRN [address] [place] [address] PCP - General 01/13/21 documented as of this encounter
--- OUTSIDE RECORDS SUMMARY | 2024-08-03 10:37 | XMS_ITS | Encounter Summary ---
Author Organization [employer] In [facility] Address [address] [place] [address] Care Team Providers Care Mammographer Name Role Phone Allyson Avery APRN Primary Care Provider + [phone] Encounter Details Date Type Department Care Team (Late st Contact Info) Description 07/01/2019 Transcribed Document [facility] Family [facility] [place] [address] ProviderTatiana MD [address] [place] [id number] Social History Tobacco Use Types Packs/Day Years [...] PT : 78 yo male adm to [facility] earlier this AM with Dx of CHEST PAINS PMHx significant for HTN, HLD, CAD, SSS w/ PPM ABRAHAM BUSTOS, PT - 07/01/2019 10:24 EDT Visit Type, PT : Initial evaluation ABRHAAM BUSTOS, PT - 07/01/2019 9:56 EDT Patient [...] : WFL Left LE Strength : WFL JULI ABRAHAM, PT - 07/01/2019 10:24 EDT Functional Mobility [...] amb -- son able to assist pt ABRAHAM BUSTOS, PT - 07/01/2019 10:24 EDT Pain Assessment Pain Scaled Used : 0-10 Pain scale Pain Score Pre-Intervention : 0 JULI ABRAHAM, PT - 07/01/2019 10:24 EDT Image 1 - Images currently included in the form version of this document have not been included in the text rendition version of the form. Anticipated Discharge Needs, OT/PT Anticipated Discharge to : Home, with family care Anticipated Home Equipment : None Recommend Continued Therapy at Discharge : No ABRAHAM BUSTOS, PT - 07/01/2019 10:24 EDT [facility] Charges PT Eval Low Complexity : 1 ABRAHAM BUSTOS, PT - 07/01/2019 10:24 EDT documented in this encounter Plan of Treatment Not on file documented as of this encounter Visit Diagnoses Not on filedocumented in this encounter Care Teams Mammographer Relationship Specialty Start Date End Date Allyson Avery APRN [address] [place] [address] PCP - General Nurse Practitioner 02/06/23 documented as of this encounter
--- OUTSIDE RECORDS SUMMARY | 2024-08-03 10:37 | XMS_ITS | Encounter Summary ---
Author Organization [employer] In iatives Address [address] [place] [address] Care Team Providers Care Battery Wrecker Operator Name Role Phone Allyson Avery APRN Primary Care Provider + [phone] Encounter Details Date Type Department Care Team (Late st Contact Info) Description 07/01/2019 Transcribed Document [facility] Family Medicine [address] [place] [address] ProviderTatiana MD [address] [place] [address] Social History Tobacco Use Types Packs/Day [...] Learning Style Preferences Family : None Sixto Shelton RN - 07/01/2019 4:56 EDT documented in this encounter Plan of Treatment Not on file documented as of this encounter Visit Diagnoses Not on filedocumented in this encounter Care Teams Battery Wrecker Operator Relationship Specialty Start Date End Date Allyson Avery, CURBER [address] [address] PCP - General Nurse Practitioner 02/06/23 documented as of this encounter
--- OUTSIDE RECORDS SUMMARY | 2024-08-03 10:37 | XMS_ITS | Clinical Summary ---
Author Organization [facility] Address [address] [place] [address] Care Team Providers Care Harp Maker Name Role Phone BennieAllyson YOKO Primary Care Provider +[phone]- [phone] Allergies No known active allergies Medications fish [...] 03/16/20 Upgrade of his dual-chamber pacemaker to [facility] dual-chamber ICD Venous reflux 07/30/2023 07/30/2023 Chronic systolic congestive heart failure 202107/30/2023 Overview (07/30/2023): 06/29/21 Echo: LVEF 36-40%, grade II diastolic dysfunction, moderate MR, moderately reduced RVSF Hypothyroidism (acquired) 03/15/20212022 Cardiac pacemaker in situ 08/02/20172022 Sick sinus syndrome 07/05/2017 07/30/2023 Overview (07/30/2023): ?? 03/16/20 Upgrade of his dual-chamber pacemaker to [facility] dual-chamber ICD Essential hypertension 01/16/2016 Peripheral arterial disease 07/15/201507/04 Overview (07/30/2023): 06/26/21: Stress PET: Medium sized infarct in inferior wall with no significant ischemia, LVEF 36% 10/12/16 LHC: Significant stenosis in the SVG to OM2/3 treated with EMANUEL. Moderate lesion distal to the MONROY to the LAD 50-70% by Dr. Silva @ [facility] 12/09/14 LHC: 1/3 grafts [...] Description 08/05/2024 1:45 PM EST Office Visit [facility] [address] [place] [address] Heath Kaplan MD [address] [address] Health Maintenance Due Date Last Done Comments [facility]-Depression Screening 1940 [facility]-Medicare Annual Wellness (AWV) 1940 [facility]-Infant/Child/Adol SDOH Screenings 1940 [facility]-Pneumococcal Vaccine: 65+ Years (1 of 2 - PCV) 1945 05/22/2016 [facility]- SDOH Screenings 1957 [facility]-Adult SDOH Screenings 1957 [facility]-Zoster Vaccines (1 of 2) 1989 [facility]-RSV Vaccine: 60+ Years or (1 - 1-dose 75+ series) 2014 [facility]-DTaP,Tdap,and Td Vaccines (1 - Tdap) 04/19/2022 04/18/2022 [id number] Vaccine (4 - 2023- season) 2024 10/02/2021, [...] age to complete this [place] [address] [facility] Care Teams Harp Maker Relationship Specialty Start Date End Date Allyson Avery APRN [address] [place] [address] PCP - General 01/13/21
--- OUTSIDE RECORDS SUMMARY | 2024-08-03 10:37 | XMS_ITS | Encounter Summary ---
Author Organization [employer] [facility] [employer] Address [address] [place] [address] Care Team Providers Care Saw Offbearer Name Role Phone Allyson Avery APRN Primary Care Provider + [phone] Encounter Details Date Type Department Care Team (Late st Contact Info) Description 07/02/2019 Transcribed Document [facility] Family Medicine [address] [place] [address] ProviderTatiana MD [address] [place] [phone] Social History Tobacco Use Types Packs/Day Years [...] Associated Diagnoses: None Author: JOSHUA CHAPMAN APRN [facility] CARDIOLOGY PROGRESS NOTE: DIAGNOSIS: 1. CP [...] kg (07/02/19 04:00:00) Routine Weight Entry Format: [place] (07/02/19 04:00:00) Routine Weight Source: Bed scale (07/02/19 04:00:00) Routine Weight, Kilograms: 78.8 kg (07/01/19 04:00:00) Routine Weight, Ounces: 1 oz (07/02/19 04:00:00) Routine Weight, Pounds: 181 lb (07/02/19 04:00:00) Estimated Clinical Dosing Weight: 82.73 kg (07/01/19 03:26:00) [place] Body Weight: 70 kg (07/01/19 03:26:00) Intake [...] 30) HCT L 38.6 (JUL 02) 40.7 (JUN 30) Plt 170 (JUL 02) 189 (JUN 30) Na 136 (JUL 02) 140 (JUL 01) [...] filedocumented in this encounter Care Teams Saw Offbearer Relationship Specialty Start Date End Date Allyson Avery, YOKO [address] [place] [address] [place] [address] PCP - General Nurse Practitioner 02/06/23 documented as of this encounter
--- OUTSIDE RECORDS SUMMARY | 2024-08-03 10:37 | XMS_ITS | Encounter Summary ---
Author Organization [employer] Address [address] [place] [address] Care Team Providers Care Accounting System Expert Name Role Phone Unavailable Primary Care Provider Unavailabl e Encounter Details Date Type Department Care Team (Late st Contact Info) Description 07/01/2019 Historic Encounter [facility] Radiology [address] [place] [address] Yoan Pandey MD [facility] [place] [address] Social History Tobacco Use Types Packs/Day Years [...] Priority Date/Time Associated Diagnosis Comments CULTURE, BLOOD ([facility] DATA CONV) Routine 07/01/2019 4:51 AM EDT XR CHEST 1 VIEW PORTABLE / BEDSIDE STAT 07/01/2019 1:50 AM EDT documented in this encounter Results * CULTURE, BLOOD ([facility] BKR DATA CONV) (07/01/2019 4:51 AM EDT) Final No growth at 5 days. Final Pre No growth at 4 days. Pre Pre No growth at 3 days. Pre Pre No growth at 2 days. Pre Pre No growth at 1 day. Pre Pre Culture less than 24 Hrs old Pre Blood 07/01/2019 4:51 AM EDT 07/01/2019 8:55 AM EDT [facility] Historical Provider LAB BLOOD ORDERABLES Fi nal Result [facility] 1 [place] [address], [facility] [phone] * XR chest 1 view portable / [...]
--- OUTSIDE RECORDS SUMMARY | 2024-08-03 10:37 | XMS_ITS | Encounter Summary ---
Author Organization [facility] In iatives Address [address] [place] [address] Care Team Providers Care Professional Healthcare Representative Name Role Phone Bennie Allyson APRN Primary Care Provider + [phone] Encounter Details Date Type Department Care Team (Late st Contact Info) Description 07/01/2019 Transcribed Document [facility] Family Medicine [facility] [place] [address] ProviderTatiana MD [address] [place] [id number] Social History Tobacco Use Types Packs/Day Years [...] On: 07/01/2019 1:01 EDT by Oriana Bautista, VALVE TESTER Quick Look Assessment Level of Consciousness : Alert, Awake Affect/Behavior : Appropriate, Calm, Cooperative Orientation : Oriented x 4 Skin Temperature : Warm Oriana Bautista, RN - 07/01/2019 1:01 EDT ED General-Functional Assess Information Obtained From : Patient Preferred Communication Mode : Verbal Communication Barrier : None Primary Language : Sammarinese Any Spiritual/Cultural Needs or Requests : No [...] Updated: 12/28/2015 05:02:33 EDT by Sara Mcdonald, Khris) Exercise: Exercise duration: 0. (Last Updated: 12/28/2015 [...] Updated: 12/28/2015 04:59:07 EDT by Sara Mcdonald, Khris) Sexual: Sexually active: No. (Last Updated: 12/28/2015 05:03:16 EDT by Sara Mcdonald, Khris) Cardiovascular ASMT, ED Detailed Cardiovascular Assessment : Open Oriana Bautista RN - 07/01/2019 1:04 EDT Cardiovascular Assessment WDL : WDL with exceptions Cardiovascular Symptoms : Chest discomfort at rest Heart Rhythm : Regular Chest Pain : Yes Oriana Bautista RN - 07/01/2019 1:01 EDT Cardiovascular ASMT, Detailed Cardiac Rhythm : Paced rhythm Oriana Bautista RN - 07/01/2019 1:04 EDT Respiratory Respiratory Assessment WDL : WDL Cough : None Oriana Bautista, KHRIS - 07/01/2019 1:01 EDT Breath Sounds Assessment Grid All Lobes Breath Sounds : Clear Oriana Bautista, KHRIS - 07/01/2019 1:01 EDT Respiratory Pattern Description [...] EDT Integumentary Assessment Integumentary Assessment WDL : Oriana Haq RN - 07/01/2019 1:01 EDT Neurologic ASMT, [...] on filedocumented in this encounter Care Teams Professional Healthcare Representative Relationship Specialty Start Date End Date Allyson Avery, LEATHER DRIER [address] [place] [phone] PCP - General Nurse Practitioner 02/06/23 documented as of this encounter
--- OUTSIDE RECORDS SUMMARY | 2024-08-03 10:37 | XMS_ITS | Encounter Summary ---
Author Organization [employer] Address [address] [place] [address] Care Team Providers Care Farm Machinery Mechanic Name Role Phone Allyson Avery YOKO Primary Care Provider + [phone] Encounter Details Date Type Department Care Team (Late st Contact Info) Description 07/01/2019 Transcribed Document [facility] 1 [place] [address] Jf Gallagher MD [address] [place] [address] [address] [place] [address] Social History Tobacco Use Types Packs/Day Years [...] Author: JF GALLAGHER MD-INT Subjective PCP: [facility] DOA: 07/01/2019 DOD: HPI: Patient admitted with chest pain, elevated troponin and 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 CODE STATUS: Full code CONSULTS: [facility] cardiology WORKUP / PROCEDURES: HOSPITAL FOLLOWUP: 07/01/2019 [...] Results Review Radiology Results (Last 48 hours) [id number] -- 07/01/2019 01:59 CR Chest 1 Vw [...] pain with elevated troponin, likely non-ST elevation IN. History of coronary artery disease and CABG Sick sinus syndrome and history of permanent pacemaker Essential hypertension Hyper lipidemia Hyperuricemia PLAN Continue current treatment. Home medications reviewed and reconciled. Cardiology input appreciated and follow-up instructions. Monitor baseline labs. documented in this encounter Plan of Treatment Not on file documented as of this encounter Visit Diagnoses Not on filedocumented in this encounter Care Teams Farm Machinery Mechanic Relationship Specialty Start Date End Date Allyson Avery, YOKO [address] [phone] PCP - General Nurse Practitioner 02/06/23 documented as of this encounter
--- OUTSIDE RECORDS SUMMARY | 2024-08-03 10:37 | XMS_ITS | Encounter Summary ---
Author Organization [facility] In [facility]atives Address [address] [facility] [facility] [place] [address] Care Team Providers Care Centrex Radio Operator Name Role Phone Unavailable Primary Care Provider Gillian e Encounter Details Date Type Department Care Team (Late st Contact Info) Description 07/01/2019 Historic Encounter [address] [address] ProviderBelle Historical Social History Tobacco [...] Priority Date/Time Associated Diagnosis Comments AUTOMATED DIFFERENTIAL ([facility] DATA CONV) Routine 07/02/2019 6:20 AM EDT GLUCOSE-POC Routine 07/01/2019 3:39 PM EDT GLUCOSE-POC Routine 07/01/2019 10:46 AM EDT TSH Routine 07/01/2019 4:51 AM EDT URINALYSIS UA RFLX MICROSCOPIC CULT IF IND ([facility] BKR DATA CONV) Routine 07/01/2019 4:35 AM EDT URINALYSIS MICROSCOPIC ([facility] DATA CONV) Routine 07/01/2019 4:35 AM EDT GLUCOSE-POC Routine 07/01/2019 3:24 AM EDT RBC MORPHOLOGY Routine 07/01/2019 12:50 AM EDT documented in this encounter Results * (ABNORMAL) AUTOMATED DIFFERENTIAL ([facility] BKR DATA CONV) (07/02/2019 6:20 AM EDT) Neut% 82.7(H) 34.0 - 71.0 % 07/02/2019 10:51 AM EDT Lymph% 10.8(L) 19.3 - 53.1 % 07/02/2019 10:51 AM EDT Emery% 3.9 3.0 - 9.0 % 07/02/2019 10:51 AM EDT Eos% 1.9 0.0 - 7.0 % 07/02/2019 10:51 AM EDT Baso% 0.4 0.0 - 1.5 % 07/02/2019 10:51 AM EDT IG% 0.30 0.00 - 0.60 % 07/02/2019 10:51 AM EDT Neut# 7.57(H) 1.56 - 6.13 K/uL 07/02/2019 10:51 AM EDT Lymph# 0.99(L) 1.00 - 3.90 x10(3)/uL 07/02/2019 10:51 AM EDT Emery# 0.36 0.16 - 1.00 K/uL 07/02/2019 10:51 AM EDT Eos# 0.17 0.00 - 0.80 x10(3)/uL 07/02/2019 10:51 AM EDT Baso# 0.04 0.00 - 0.20 x10(3)/uL 07/02/2019 10:51 AM EDT IG# 0.03 0.00 - 0.05 x10(3)/uL 07/02/2019 10:51 AM EDT Blood 07/02/2019 6:20 AM EDT 07/02/2019 10:45 AM EDT Narrative [facility] - 07/02/2019 10:53 AM EDT Added by Discern Expert [facility] Historical Provider LAB BLOOD ORDERABLES Fi nal Result [facility] 1 [place] [address], [facility] [phone] * (ABNORMAL) Glucose, Point of Care (07/01/2019 3:39 PM EDT) Glucose POC2 194(H) 70 - 110 mg/dL 07/01/2019 7:39 PM EDT [facility] Quarry Supervisor [id number] 07/01/2019 7:39 PM EDT [facility] Device SN [id number] 07/01/2019 7:39 PM EDT [facility] Device Comment1 Notified Nurse RBV 07/01/2019 7:39 PM EDT [facility] Blood 07/01/2019 3:39 PM EDT 07/01/2019 7:46 PM EDT us [facility] Historical Provider POINT OF CARE TEST ORDE RABLES Final Result Performing Organization Address City/[facility]/ZIP Co de Phone Number [facility] [address] [phone] * (ABNORMAL) Glucose, Point of Care (07/01/2019 10:46 AM EDT) Glucose POC2 151(H) 70 - 110 mg/dL 07/01/2019 2:46 PM EDT [facility] Quarry Supervisor [phone] 07/01/2019 2:46 PM EDT [facility] Device SN [id number] 07/01/2019 2:46 PM EDT [facility] Device Comment1 Notified Nurse RBV 07/01/2019 2:46 PM EDT [facility] Blood 07/01/2019 10:4 6 AM EDT 07/01/2019 2:50 PM EDT us [facility] Historical Provider POINT OF CARE TEST ORDE RABLES Final Result [facility] [address] [phone] * TSH (07/01/2019 4:51 AM EDT) [facility] TSH 0.512 0.358 - 3.740 mcInt Units/mL 07/01/2019 2:00 PM EDT Blood 07/01/2019 4:51 AM EDT 07/01/2019 1:07 PM EDT [facility] Provider LAB BLOOD ORDERABLES Fi nal Result Performing Organization Address City/[facility]/ZIP Co de Phone Number [facility] [address] [phone] * (ABNORMAL) URINALYSIS MICROSCOPIC ([facility] BKR DATA CONV) (07/01/2019 4:35 AM EDT) [facility] Correlate UA Correlated Correlated 07/01/2019 9:14 AM EDT Ur RBC 0-2(A) /HPF 07/01/2019 9:14 AM EDT Ur WBC 0-2 /HPF 07/01/2019 9:14 AM EDT Ur Mucous Trace(A) 07/01/2019 9:14 AM EDT 07/01/2019 4:35 AM EDT 07/01/2019 8:43 AM EDT Narrative [facility] - 07/01/2019 9:14 AM EDT Added by Discern Expert [facility] Provider URINE ORDERABLES Final Result Performing Organization Address City/[facility] Co de Phone Number [facility] [address] [phone] * (ABNORMAL) URINALYSIS UA RFLX MICROSCOPIC CULT IF IND ([facility] BKR DATA CONV) (07/01/2019 4:35 AM EDT) [facility] Urine Type. U CleanCatch 07/01/2019 8:43 AM [...] Clear 07/01/20 8:47 AM EDT Urine Specific [employer] 1.024 1.005 - 1.030 07/01/2019 8:47 AM [...] 4:35 AM EDT 07/01/2019 8:43 AM EDT [facility] Historical Provider URINE ORDERABLES Final Result [facility] [address] [phone] * (ABNORMAL) Glucose, Point of Care (07/01/2019 3:24 AM EDT) Glucose POC2 174(H) 70 - 110 mg/dL 07/01/2019 7:24 AM EDT [facility] Quarry Supervisor [phone] 07/01/2019 7:24 AM EDT [facility] Device SN [id number] 07/01/2019 7:24 AM EDT [facility] Device Comment1 Notified Nurse RBV 07/01/2019 7:24 AM EDT [facility] Blood 07/01/2019 3:24 AM EDT 07/01/2019 7:30 AM EDT [facility] Historical Provider POINT OF CARE TEST ORDE IRVIGN Final Result Performing Organization Address [facility]/ZIP Co de Phone Number [facility] [address] [phone] * Smear morphology (07/01/2019 12:50 AM EDT) RBC Morphology Normal 07/01/2019 5:[address] Estimate Adequate Adequate 07/01/2019 5:25 AM EDT Blood 07/01/2019 12:5 0 AM EDT 07/01/2019 4:55 AM EDT Narrative [facility] - 07/01/2019 5:25 AM EDT Ordered By Discern Expert Rule [facility] Historical Provider LAB BLOOD ORDERABLES Fi nal Result Performing Organization Address [facility] Co de Phone Number [facility] [address] [phone] documented in this encounter Visit Diagnoses Not on filedocumented in this encounter
--- OUTSIDE RECORDS SUMMARY | 2024-08-03 10:37 | XMS_ITS | Encounter Summary ---
Author Organization [facility] In iatives Address [address] [place] [address] Care Team Providers Care Freelance Data Entry Name Role Phone Bennie Allyson BABCOCK Primary Care Provider + [phone] Encounter Details Date Type Department Care Team (Late st Contact Info) Description 07/02/2019 Transcribed Document [facility] [place] [address] ProviderTatiana MD [address] [place] [address] [phone] Social History Tobacco Use Types Packs/Day Years Used Date Smoking Tobacco: Never Assessed Sex and Gender Information Value Date Recorded Sex Assigned at Not on file Legal Sex Male 5:33 PM CDT Gender Identity Not on file Sexual Orientation Not on file documented as of this encounter Miscellaneous Notes * Cerner Conversion Note - Historical ProviderMD - 07/02/2019 2:00 AM CDT Histology Manager Details Entered On: 07/02/2019 2:23 EDT Performed [...] on filedocumented in this encounter Care Teams Freelance Data Entry Relationship Specialty Start Date End Date Allyson Avery, DIGITAL ANALYST [address] [address] PCP - General Nurse Practitioner 02/06/23 documented as of this encounter
--- OUTSIDE RECORDS SUMMARY | 2024-08-03 10:37 | XMS_ITS | Encounter Summary ---
Author Organization [facility] In iatives Address [address] [place] [address] Care Team Providers Care Adjunct English Instructor Name Role Phone Allyson Avery APRN Primary Care Provider + [phone] Encounter Details Date Type Department Care Team (Late st Contact Info) Description 07/02/2019 Transcribed Document [facility] [place] [facility] [place] [address] ProviderTatiana MD [address] [place] [address] [phone] Social History Tobacco Use Types Packs/Day Years [...] On: 07/02/2019 4:00 EDT by Татьяна Jackson, Business Services Sales Agent-Health Unit Coord Height and Weight, Routine Routine Weight Source : Bed scale Routine Weight Entry Format : [place] Routine Weight, Pounds : 181 lb Routine Weight, Ounces : 1 oz Routine Weight Calculation : 82.3 kg Height Source : Stated Height Entry Format : [place] Height, Feet : 5 ft Height, Inches : 9 Inch Clinical Height : 175.26 cm Body Surface Area (BSA), Routine : 1.98 m2 Body Mass Index (BMI), Routine : 26.79 kg/m2 [place], Татьяна T, Business Services Sales Agent-Health Unit Coord - 07/02/2019 3:56 EDT Electronically signed by Angel, [facility] Conversion Fan Runner Cerner at 12/20/2022 12:14 PM CDT documented in this encounter Plan of Treatment Not on file documented as of this encounter Visit Diagnoses Not on filedocumented in this encounter Care Teams Adjunct English Instructor Relationship Specialty Start Date End Date Allyson Avery, ROTATING EQUIPMENT ENGINEER [address] [facility] [address] [place] [address] PCP - General Nurse Practitioner 02/06/23 documented as of this encounter
--- OUTSIDE RECORDS SUMMARY | 2024-08-03 10:37 | XMS_ITS | Encounter Summary ---
Author Organization [facility] In iatives Address [address] [place] [address] Care Team Providers Care Kettle Fry Cook Operator Name Role Phone Allyson Avery APRN Primary Care Provider + [phone] Encounter Details Date Type Department Care Team (Late st Contact Info) Description 07/01/2019 Transcribed Document [facility] [place] Family Medicine [address] [place] [address] ProviderTatiana MD [address] [place] [address] [phone] Social History Tobacco Use Types Packs/Day Years [...] present and will amb with pt ABRAHAM BUSTOS, PT - 07/01/2019 10:36 EDT documented in this encounter Plan of Treatment Not on file documented as of this encounter Visit Diagnoses Not on filedocumented in this encounter Care Teams Kettle Fry Cook Operator Relationship Specialty Start Date End Date Allyson Avery, PILING CUTTER [address] [address] PCP - General Nurse Practitioner 02/06/23 documented as of this encounter
--- OUTSIDE RECORDS SUMMARY | 2024-08-03 10:37 | XMS_ITS | Encounter Summary ---
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 He denies [...] failure dapt- aspirin, plavix continue ranexa, statin, pat add low dose bb pt scheduled for [...] AV block, Right bundle block Echo pending documented in this encounter Plan of Treatment Not on file documented as of this encounter Visit Diagnoses Not on filedocumented in this encounter Care Teams Architectural Practice Manager Relationship Specialty Start Date End Date Allyson Avery, YOKO [address] [facility] [address] [place] [address] PCP - General Nurse Practitioner 02/06/23 documented as of this encounter
--- OUTSIDE RECORDS SUMMARY | 2024-08-03 10:37 | XMS_ITS | Encounter Summary ---
[facility] Organization [facility] Address [address] [place] [address] Care Team Providers Care Director Multimedia Name Role Phone Allyson Avery APRN Primary Care Provider + [phone] Encounter Details Date Type Department Care Team (Late st Contact Info) Description 07/01/2019 Transcribed Document [facility] [place] [address] ProviderTatiana MD [address] [place] [address] [phone] Social History Tobacco Use Types Packs/Day Years Used Date Smoking Tobacco: Never Assessed Sex and Gender Information Value Date Recorded Sex Assigned at Not on file Legal Sex Male 5:33 PM CDT Gender Identity Not on file Sexual Orientation Not on file documented as of this encounter Miscellaneous Notes * Cerner Conversion Note - Historical ProviderMD - 07/01/2019 2:18 PM CDT Initial Discharge Planning Entered On: 07/01/2019 14:29 EDT Performed On: 07/01/2019 14:18 EDT by ALMA COSTA RN-Care Management Initial Assessment I Previously Documented Living Environment : No qualifying data available. Living Situation : Other: w/son and mother Patient Lives With : Other: son and mother Emergency Contact #1 : Jake Menchaca Emergency Contact #1 Emergency Contact #1 Relationship : Son Emergency Contact #2 : Merle Britochie Emergency Contact #2 Emergency Contact #2 Relationship [...] COSTA RN-Care Management - 07/01/2019 14:18 EDT documented in this encounter Plan of Treatment Not on file documented as of this encounter Visit Diagnoses Not on filedocumented in this encounter Care Teams Director Multimedia Relationship Specialty Start Date End Date Allyson Avery, YOKO [address] [address] PCP - General Nurse Practitioner 02/06/23 documented as of this encounter
--- OUTSIDE RECORDS SUMMARY | 2024-08-03 10:37 | XMS_ITS | Encounter Summary ---
Author Organization [facility] In iatives Address [address] [place] [address] Care Team Providers Care Jboss Architect Name Role Phone Allyson Avery APRN Primary Care Provider + [phone] Encounter Details Date Type Department Care Team (Late st Contact Info) Description 07/01/2019 Transcribed Document [facility] [place] [facility] [place] [address] ProviderTatiana MD [address] [place] [address] [phone] Social History Tobacco Use Types Packs/Day Years [...] On: 07/01/2019 4:00 EDT by Deedee Aiken, Stock Manager-Student Nurse Height and Weight, Routine Routine Weight Source : Bed scale Routine Weight Entry Format : Metric Routine Weight, Kilograms : 78.8 kg(Converted to: 173 lb 12 oz) Routine Weight Calculation : 78.8 kg Height Source : Stated Height Entry Format : [place] Height, Feet : 5 ft Height, Inches : 9 Inch Clinical Height : 175.26 cm Body Surface Area (BSA), Routine : 1.95 m2 Body Mass Index (BMI), Routine : 25.65 kg/m2 Deedee Aiken, Stock Manager-Student Nurse - 07/01/2019 6:25 EDT documented in this encounter Plan of Treatment Not on file documented as of this encounter Visit Diagnoses Not on filedocumented in this encounter Care Teams Jboss Architect Relationship Specialty Start Date End Date Allyson Avery, YOKO [address] [address] PCP - General Nurse Practitioner 02/06/23 documented as of this encounter
--- OUTSIDE RECORDS SUMMARY | 2024-08-03 10:37 | XMS_ITS | Encounter Summary ---
Author Organization [facility] In iatives Address [address] [place] [address] Care Team Providers Care Estimation Manager Name Role Phone Unavailable Primary Care Provider Gillian e Encounter Details Date Type Department Care Team (Late st Contact Info) Description 07/01/2019 Historic Encounter [address] [address] Provider [facility] Historical Social History Tobacco Use Types Packs/Day [...] Associated Diagnosis Comments [facility] W/ [facility] Routine 07/02/2019 6:20 AM EDT CULTURE, BLOOD ([facility] DATA CONV) Routine 07/01/2019 4:51 AM EDT TROPONIN I ULTRA ([facility] DATA CONV) Routine 07/01/2019 12:50 AM EDT documented in this encounter Results * (ABNORMAL) CBC W/ AUTO DIFF ([facility] DATA CONV) (07/02/2019 6:20 AM EDT) [...] 6:20 AM EDT 07/02/2019 10:45 AM EDT [facility] Historical Provider LAB BLOOD ORDERABLES Fi nal Result Performing Organization Address [facility]/ZIP Co de Phone Number [facility] [address] [place] [address] * CULTURE, BLOOD ([facility] DATA CONV) (07/01/2019 4:51 AM EDT) Final No growth at 5 days. Final Pre No growth at 4 days. Pre Pre No growth at 3 days. Pre Pre No growth at 2 days. Pre Pre No growth at 1 day. Pre Pre Culture less than 24 Hrs old Pre Blood 07/01/2019 4:51 AM EDT 07/01/2019 8:55 AM EDT [facility] Historical Provider LAB BLOOD ORDERABLES Fi nal Result Performing Organization Address City/[facility]/ZIP Co de Phone Number [facility] [address] [place] [address] * (ABNORMAL) TROPONIN I ULTRA ([facility] DATA CONV) (07/01/2019 12:50 AM EDT) [...] 0 AM EDT 07/01/2019 5:04 AM EDT [facility] Historical Provider LAB BLOOD ORDERABLES Fi nal Result [facility] [address] [phone] documented in this encounter Visit Diagnoses Not on filedocumented in this encounter
--- OUTSIDE RECORDS SUMMARY | 2024-08-03 10:37 | XMS_ITS | Encounter Summary ---
Author Organization Healthcare Address [address] [place] [address] Care Team Providers Care Clinical Research Analyst Name Role Phone Allyson Avery APRN Primary Care Provider [phone] Encounter Details Date Type Department Care Team [...] Description 08/05/2024 1:45 PM EST Office Visit [facility] [address] [place] [address] Heath Kaplan MD [address] [address] documented as of this encounter Visit Diagnoses Not on filedocumented in this encounter Additional Health Concerns Assessment Noted Time A fall risk assessment has been complete d for the patient 07/20/2022 2:32 PM EST documented as of this encounter Care Teams Clinical Research Analyst Relationship Specialty Start Date End Date Allyson Avery APRN [address] [place] [address] PCP - General 01/13/21 documented as of this encounter
--- OUTSIDE RECORDS SUMMARY | 2024-08-03 10:37 | XMS_ITS | Encounter Summary ---
Author Organization [facility] In iatives Address [address] [place] [address] Care Team Providers Care Termite Control Servicer Name Role Phone Bennie Allyson BABCOCK Primary Care Provider + [phone] Encounter Details Date Type Department Care Team (Late st Contact Info) Description 07/01/2019 Transcribed Document [facility] [place] Family Medicine [address] [place] [address] ProviderTatiana MD [address] [place] [address] [phone] Social History Tobacco Use Types Packs/Day Years Used Date Smoking Tobacco: Never Assessed Sex and Gender Information Value Date Recorded Sex Assigned at Not on file Legal Sex Male 5:33 PM CDT Gender Identity Not on file Sexual Orientation Not on file documented as of this encounter Miscellaneous Notes * Cerner Conversion Note - Historical ProviderMD - 07/01/2019 3:24 AM CDT ED Discharge Entered On: 07/01/2019 3:25 EDT Performed On: 07/01/2019 3:24 EDT by Oriana Bautista, associate professor of chemistry Process Patient Disposition : Admit/Observe Personal Belongings [...] on filedocumented in this encounter Care Teams Termite Control Servicer Relationship Specialty Start Date End Date Allyson Avery, YOKO [address] [phone] PCP - General Nurse Practitioner 02/06/23 documented as of this encounter
--- OUTSIDE RECORDS SUMMARY | 2024-08-03 10:37 | XMS_ITS | Encounter Summary ---
Author Organization [facility] In iatives Address [address] [place] [address] Care Team Providers Care Molding Manager Name Role Phone Allyson Avery APRN Primary Care Provider + [phone] Encounter Details Date Type Department Care Team (Late st Contact Info) Description 07/01/2019 Transcribed Document [facility] [place] [facility] [place] [address] ProviderTatiana MD [address] [place] [address] [phone] Social History Tobacco Use Types Packs/Day Years [...] activities PAYTON GONZALEZ OTR/Belia 07/01/2019 14:28 EDT Refrigerated Cargo Clerk Goals, OT Dressing, Lower Body LTG Grid [...] Status : Initial goal PAYTON GONZALEZ OTR/Belia - 07/01/2019 14:28 EDT Bed Mobility/ Bed Transfer [...] Pain Score Pre-Intervention : 0 PAYTON GONZALEZ OTR/L - 07/01/2019 14:28 EDT Image 1 - Images currently included in the form version of this document have not been included in the text rendition version of the form. [place] OT Charges OT Selfcare/Hm Mgmt Ea 15 Min : 1 OT Eval Low Complexity : 1 PAYTON GONZALEZ OTR/Belia - 07/01/2019 14:28 EDT documented in this encounter Plan of Treatment Not on file documented as of this encounter Visit Diagnoses Not on filedocumented in this encounter Care Teams Molding Manager Relationship Specialty Start Date End Date Allyson Avery APRN [address] [address] PCP - General Nurse Practitioner 02/06/23 documented as of this encounter
--- OUTSIDE RECORDS SUMMARY | 2024-08-03 10:37 | XMS_ITS | Encounter Summary ---
Author Organization [facility] In iatives Address [address] [place] [address] Care Team Providers Care Ostomy Rn Name Role Phone Allyson Avery APRN Primary Care Provider + [phone] Encounter Details Date Type Department Care Team (Late st Contact Info) Description 07/02/2019 Transcribed Document [facility] [place] [address] [place] [address] ProviderTatiana MD [address] [place] [address] Social History Tobacco Use Types Packs/Day [...] on filedocumented in this encounter Care Teams Ostomy Rn Relationship Specialty Start Date End Date Allyson Avery APRN [address] [place] [address] [place] [phone] PCP - General Nurse Practitioner 02/06/23 documented as of this encounter
--- OUTSIDE RECORDS SUMMARY | 2024-08-03 10:37 | XMS_ITS | Encounter Summary ---
Author Organization Healthcare Address [address] [place] [address] Care Team Providers Care Grooving Machine Operator Name Role Phone Allyson Avery YOKO Primary Care Provider [phone] Reason for Visit * Reason Comments Cataract Encounter Details Date Type Department Care Team (Late st Contact Info) Description 07/20/2022 2:15 PM EST Office Visit [facility] [address] [place] [address] Heath Kaplan MD [address] [address] Cataract, nuclear sclerotic senile, right [...] patient [place] and was told to have cataracts botheyes [...] 6s 6s Refraction Wearing Rx Sphere Cylinder [place] Add Right -2.50 +2.00 176 +2.50 Left -1.50 +0.75 013 +2.50 Age: 9m Type: Bifocal Manifest Refraction (Auto) Sphere Cylinder [place] Dist [place] Right -3.00 +2.00 163 20/20-1 [...] Description 08/05/2024 1:45 PM EST Office Visit [facility] [address] [place] [address] Heath Kaplan MD [address] [address] documented as of this encounter Visit Diagnoses Diagnosis Cataract, nuclear sclerotic senile, right- Primary Cataract, nuclear sclerotic senile, 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
== END 2024-08-03 23:59 | disposition home or self-care (01) ==
LOC: RT 10:32
PROVIDERS: PCP Nurse Practitioner Family; Visit Provider Nurse Practitioner Family
DX: I73.9 Peripheral vascular disease, unspecified (principal)
CPT/HCPCS: 93923

== ENCOUNTER 2024-08-10 10:27 | Outpatient (CLI) | payer MEDICARE, SELFPAY ==
--- NOTE | 2024-08-10 10:28 | CT_ITS ---
FINAL REPORT TECHNIQUE: Thin section axial CT images of the left knee were obtained with coronal and sagittal reformats were performed. This study was performed with techniques to keep radiation doses as low as reasonably achievable (ALARA). Individualized dose reduction techniques using automated exposure control or adjustment of mA and/or kV according to the patient''s size were employed. CLINICAL HISTORY: Chondrocalcinosis, left knee instability FINDINGS: There are moderate to severe degenerative changes. There is severe medial compartment joint space narrowing. Subchondral cysts are seen of the medial femoral condyle and medial tibial plateau. Meniscal calcifications are present. There is a small joint effusion. There is prepatellar soft tissue swelling. Moderate vascular calcifications are noted. There is no acute fracture or dislocation. IMPRESSION: Moderate to severe degenerative change with small joint effusion and prepatellar soft tissue swelling. No acute bony abnormality. Reviewed, Interpreted and Dictated by Quinn Gao III, MD Transcribed by Debbie Gaytan Authenticated and [facility]
== END 2024-08-10 23:59 | disposition home or self-care (01) ==
LOC: RAD 10:28
PROVIDERS: PCP Nurse Practitioner Family; Visit Provider Nurse Practitioner Family
DX: M11.20 Other chondrocalcinosis, unspecified site (principal); M23.52 Chronic instability of knee, left knee
CPT/HCPCS: 73700

== ENCOUNTER 2024-10-19 14:30 | Outpatient (CLI) | payer MEDICARE, SELFPAY ==
[2024-10-19 16:38] LABS: Microscopic, Urine URINE MICROSCOPIC (MICROSCOPIC)
[2024-10-19 17:08] LABS: Appearance,Urine CLEAR (Clear); Bilirubin,Urine Negative (Negative); Blood, Urine Negative (Negative); Color,Urine YELLOW (Yellow); Glucose,Urine (UA) Negative (Negative); Ketones,Urine Negative (Negative); Leukocyte Esterase,Urine Negative (Negative); Nitrate,Urine Negative (Negative); PH,Urine 5.5 (5.0-8.5); Protein,Urine Negative (Negative); Specific Gravity, Urine 1.025 (1.005-1.030); Urobilinogen,Urine 0.2 EU/dl (0.2)
[2024-10-19 17:39] LABS: Creatinine,Urine Random 75 mg/dL (Not Estab.); Microalbumin/Creatinine Ratio 11.4
[2024-10-19 18:36] LABS: Squamous Epithelial Cell,Urine Occasional #/hpf (0-5); WBC,Urine Occasional #/hpf (0-3)
== END 2024-10-19 23:59 | disposition home or self-care (01) ==
LOC: LAB.DROPOF 10-21 11:00
PROVIDERS: PCP Nurse Practitioner Family; Visit Provider Nurse Practitioner Family
DX: I10 Essential (primary) hypertension (principal)
CPT/HCPCS: 81001; 82043; 82570

== ENCOUNTER 2024-12-11 10:15 | Outpatient (CLI) | payer MEDICARE, SELFPAY ==
--- NOTE | 2024-12-11 10:18 | XR_ITS ---
FINAL REPORT CLINICAL HISTORY: Constipation, chronic family states recent barium enema approx 2 weeks ago COMPARISON: 09/18/2023 FINDINGS: The visualized intestinal gas pattern appears unremarkable without evidence to suggest obstruction. There is mild fecal impaction of the right colon. Retained contrast is seen throughout diverticula throughout the colon, greatest in the sigmoid colon. There are moderate degenerative changes of the lumbar spine. No abnormal radiopacities are seen in the abdomen. IMPRESSION: Mild fecal impaction. Reviewed, Interpreted and Dictated by Bailey Burgos MD Transcribed by Irma Rosas Authenticated and [facility]
[2024-12-11 10:42] LABS: Basophils # 0.1 K/mm3 (0-0.2); Basophils % 0.9 % (0.1-2.0); Eosinophils # 0.2 K/mm3 (0.0-0.4); Eosinophils % 3.2 % (0.1-12.0); Hemoglobin 13.5 g/dL (14.1-18.0); Lymphocytes % 14.6 % (10-50); Mean Corpuscular HGB Conc 33.8 g/dL (31.8-35.4); Mean Corpuscular Hemoglobin 34.4 pg (27.0-31.2); Mean Corpuscular Volume 101.8 fl (80-94); Monocytes # 0.6 K/mm3 (0.1-1.0); Monocytes % 8.3 % (1.7-9.3); Neutrophils # 4.9 K/mm3 (1.8-7.8); Neutrophils % 72.1 % (37.0-80.0); Nucleated Red Blood Cells # 0 10^3/uL; Nucleated Red Blood Cells % 0 %; Platelet Count 177 K/mm3 (142-424); Red Blood Count 3.93 M/mm3 (4.60-6.20); Red Cell Distribution Width 11.9 % (11.5-17.5); Red Cell Distribution Width-SD 44.8 fL; White Blood Count 6.8 K/mm3 (4.8-10.8)
[2024-12-11 11:35] LABS: Hemoglobin A1C 6.6 % (4.0-6.0)
[2024-12-11 11:37] LABS: Chloride 103 mmol/L (98-107)
[2024-12-11 11:38] LABS: Potassium 4.9 mmoL/L (3.5-5.1); Sodium 136 mmol/L (136-145)
[2024-12-11 11:40] LABS: Alanine Aminotransferase 24 U/L (12-78); Aspartate Amino Transferase 30 U/L (17-59); Blood Urea Nitrogen 43 mg/dl (9-20); Estimated Glomerular Filt Rate 52 ml/min (>60); GFR (African American) 63 ML/MIN (>60)
[2024-12-11 11:41] LABS: Alkaline Phosphatase 61 U/L (38-126); Anion Gap 11.9 mEq/L (5-15); Bilirubin,Total 0.6 mg/dl (0.2-1.3); Calcium 10.4 mg/dl (8.4-10.2); Carbon Dioxide 26 mmol/L (22.0-30.0); Cholesterol 138 mg/dl (140-200); Glucose 156 mg/dl (74-100); HDL Cholesterol 46 mg/dl (40-60); Magnesium 1.7 mg/dl (1.6-2.3); Total Protein,Serum 6.9 g/dl (6.3-8.2); Triglycerides 146 mg/dl (30-150); VLDL Cholesterol 29 mg/dL (0-40)
[2024-12-11 11:53] LABS: Direct LDL Cholesterol 69.33 mg/dL (100-129)
[2024-12-11 12:13] LABS: Thyroid Stimulating Hormone 0.38 uIU/mL (0.465-4.68)
[2024-12-11 12:19] LABS: Ferritin 188 ng/ml (17.9-464)
[2024-12-11 12:42] LABS: Albumin Level 4.3 g/dl (3.5-5.0); Albumin/Globulin Ratio 1.7 (1.1-1.8); Globulin 2.6 g/dL (1.3-3.2); Vitamin B12 931 pg/mL (239-931)
[2024-12-12 15:14] LABS: Adrenocorticotropic Hormone 26.1 pg/mL (7.2-63.3)
[2024-12-13 16:16] LABS: Cortisol,AM 19.7 ug/dL (6.2-19.4)
[2024-12-18 10:15] LABS: Renin Activity, Plasma 38.761 ng/mL/hr (0.167-5.380)
[2024-12-25 12:27] LABS: Epinephrine, Plasma 99.3 pg/mL (0.0-55.4); Norepinephrine, Plasma 2398 pg/mL (115-524)
== END 2024-12-11 23:59 | disposition home or self-care (01) ==
LOC: LAB 10:16
PROVIDERS: PCP Nurse Practitioner Family; Visit Provider Nurse Practitioner Family
DX: K59.00 Constipation, unspecified (principal); R42 Dizziness and giddiness; R53.1 Weakness; E11.9 Type 2 diabetes mellitus without complications; E78.5 Hyperlipidemia, unspecified; E03.9 Hypothyroidism, unspecified; D50.9 Iron deficiency anemia, unspecified
CPT/HCPCS: 36415; 74018; 80053; 80061; 82024; 82384; 82533; 82607; 82728; 83036; 83735; 84244; 84443; 85025

== ENCOUNTER 2024-12-15 13:27 | Outpatient (CLI) | payer MEDICARE, SELFPAY ==
--- NOTE | 2024-12-15 13:45 | CA_ITS ---
FINAL REPORT TECHNIQUE: Crabtree scale, color and spectral doppler images of the bilateral carotid arteries were obtained. CLINICAL HISTORY: CAD, Dizziness COMPARISON: None FINDINGS: Peak systolic velocity in the right internal carotid artery is 100 cm/sec. The internal carotid to common carotid artery ratio is 1.34. There is no significant carotid artery stenosis, with moderate heterogeneous plaque formation. The right vertebral artery is normal in direction. Peak systolic velocity in the left internal carotid artery is 121 cm/sec. The internal carotid to common carotid artery ratio is 1.8. There is no significant carotid artery stenosis, with moderate heterogeneous plaque formation. The left vertebral artery is normal in direction. IMPRESSION: No ultrasound evidence of hemodynamically significant carotid artery stenosis. Normal peak systolic velocities and normal internal to common carotid artery ratios bilaterally. Moderate heterogeneous plaque formation is present in both carotid arteries. Antegrade bilateral vertebral arteries. Reviewed, Interpreted and Dictated by Alisia Sparrow MD Transcribed by Aleah Zee Authenticated and [facility]
== END 2024-12-15 23:59 | disposition home or self-care (01) ==
LOC: RT 13:28
PROVIDERS: PCP Nurse Practitioner Family; Visit Provider Nurse Practitioner Family
DX: R42 Dizziness and giddiness (principal)
CPT/HCPCS: 93880

== ENCOUNTER 2025-01-19 14:40 | Outpatient (CLI) | payer MEDICARE, SELFPAY | END 2025-01-19 23:59 | disposition home or self-care (01) | LOC: LAB 14:41 | PROVIDERS: PCP Nurse Practitioner Family; Visit Provider Nurse Practitioner Family | DX: E27.5 Adrenomedullary hyperfunction (principal); R79.89 Other specified abnormal findings of blood chemistry | CPT/HCPCS: 82384; 83835 ==

== ENCOUNTER 2025-05-04 15:56 | Outpatient (CLI) | payer MEDICARE, SELFPAY ==
--- OUTSIDE RECORDS SUMMARY | 2025-03-25 13:00 | XMS_ITS | Encounter Summary ---
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 Hypothyroidism, unspecified Allyson Avery APRN [address] [address] Phone: tel: fax: [facility] END[facility]CRINOLOG[facility] [address] [address] Phone: tel: fax: Referral ID Status Reason Start Date Expiration Date Visits Re quested Visits Authorized [id number] Closed 01/11/2025 04/12/2026 1 1 Encounter Details Date Type Department Care Team (Late st Contact Info) Description 03/25/2025 1:00 PM EDT Office Visit [facility] END[facility]CRINOLOGY [address] [address] Rosa De Dios MD [address] [phone] Hypothyroidism, unspecified type (Primary Dx); Elevated cortisol [...] for labs to be completed outside of [facility]. Patient instructed to contact clinic if they have not heard from this office regarding results within 1 week of lab draw to ensure that results were received by this office. Follow-up will be determined after review of labs. The patient was instructed to contact the clinicwith any interval questions or concerns. Electronically signed by: Rosa De Dios MD Dictated Utilizing [employer] Dictation documented in this encounter Plan of Treatment Upcoming Encounters Date Type Department Care Team (Late st Contact Info) Description 07/20/2025 3:45 PM EST Office Visit [facility] ENDOCRINOLOGY [address] [place] [phone] Rosa De Dios MD 3084 [facility] [address] [place] [address] 07/26/2025 2:00 PM EST Office Visit [facility] [address] [place] [address] Monica Quintero, DNP, ANIMAL SCIENCE PROFESSOR [address] [place] [address] 10/28/2025 1:30 PM EST Office Visit [facility] CARDIOLOGY 1720 [facility] [address] [place] [phone] Mansoor Silva MD 1720 [facility] [address] [place] [address] Scheduled Orders Name Type Priority Associated Diagnoses [...] LAB - 03/31/2025 10:10 AM EDT Test(s) [id number]; [id number]-Qyteujloodx; [id number]-Ukjlypku was developed and its performance characteristics determined by [facility]. It has not been cleared or approved by the Food and Drug Administration. Performed at: - [address] [id number] Automobile Tester: Van Dang MD, Phone: [phone] us Rosa De Dios MD LAB BLOOD ORDERABLES Final Resu lt [facility] [address] [place] [address], * Metanephrines, Frac. Free, Plasma (03/25/2025 1:40 PM EDT) Normetanephrine 42.9 0.0 - 297.2 pg/mL 04/06/2025 9:08 PM EDT [facility] Metanephrine <25.0 0.0 - 88.0 pg/mL 04/06/2025 9:08 PM EDT [facility] Blood Venipuncture / Unknown 03/25/2025 1:40 PM EDT 03/25/2025 1:41 PM EDT Narrative [facility] - 04/06/2025 9:08 PM EDT Test(s) [id number]-Mznsfgzqlkenrso, Pl; 534187-Pukglediziun, Pl was developed and its performance characteristics determined by [facility]. It has not been cleared or approved by the Food and Drug Administration. Performed at: 01 - [address] [id number] Automobile Tester: Van Dang MD, Phone: [phone] us Rosa De Dios MD LAB BLOOD ORDERABLES Final Resu lt [facility] [address] [place] [address], * (ABNORMAL) Basic Metabolic Panel (03/25/2025 1:40 PM EDT) Glucose 130(H) 65 - 99 mg/dL 03/25/2025 11:43 PM EDT [facility] BUN 33.0(H) 8.0 - 23.0 mg/dL 03/25/2025 11:43 PM EDT [facility] Creatinine 1.14 0.76 - 1.27 mg/dL 03/25/2025 11:43 PM EDT [facility] Sodium 140 136 - 145 mmol/L 03/25/2025 11:43 PM EDT [facility] Potassium 4.8 3.5 - 5.2 mmol/L 03/25/2025 11:43 PM EDT [facility] Chloride 102 98 - 107 mmol/L 03/25/2025 11:43 PM EDT [facility] CO2 26.2 22.0 - 29.0 mmol/L 03/25/2025 11:43 PM EDT [facility] Calcium 10.5 8.6 - 10.5 mg/dL 03/25/2025 11:43 PM EDT [facility] BUN/Creatinine Ratio 28.9(H) 7.0 - 25.0 03/25/2025 11:43 PM EDT [facility] Anion Gap 11.8 5.0 - 15.0 mmol/L 03/25/2025 11:43 PM EDT [facility] eGFR 63.0 >60.0 mL/min/1.7 3 03/25/2025 11:43 PM EDT [facility] Blood Structure of left upper limb / Unknown Venipuncture / Unknown 03/25/2025 1:40 PM EDT 03/25/2025 1:41 PM EDT [facility] - 03/25/2025 11:43 PM EDT [...] MD LAB BLOOD ORDERABLES Final Resu lt [facility]
[address] [place] [address], [place] [phone] * Aldosterone / Renin Ratio (03/25/2025 1:40 [...] PM EDT 03/25/2025 1:41 PM EDT [facility]ative [facility] - 03/30/2025 11:10 AM EDT Test(s) [id number]; [id number]-Ycjjp Activity, Plasma was developed and its performance characteristics determined by [facility]. It has not been cleared or approved by the Food and Drug Administration. Performed at: 01 - [address] [id number] Automobile Tester: Van Dang MD, Phone: [phone] us Rosa De Dios MD LAB BLOOD ORDERABLES Final Resu lt [facility] [address] [place] [address], [place] [phone] * T4, Free (03/25/2025 1:40 PM EDT) Free T4 1.25 0.92 - 1.68 ng/dL 03/25/2025 11:44 PM EDT [facility] Blood Structure of left upper limb / Unknown Venipuncture / Unknown 03/25/2025 1:40 PM EDT 03/25/2025 1:41 PM EDT us Rosa De Dios MD LAB BLOOD ORDERABLES Final Resu lt Performing Organization Address [facility]/ZIP Co de Phone Number [facility]
[address] [place] [address], * TSH (03/25/2025 1:40 PM EDT) TSH 1.380 0.270 - 4.200 uIU/mL 03/25/2025 11:44 PM EDT [facility] Blood Structure of left upper limb / Unknown Venipuncture / Unknown 03/25/2025 1:40 PM EDT 03/25/2025 1:41 PM EDT us Rosa De Dios MD LAB BLOOD ORDERABLES Final Resu lt [facility]
[address] [place] [address], documented in this encounter Visit Diagnoses Diagnosis Hypothyroidism, unspecified type- Primary Elevated cortisol level High serum renin High catecholamines documented in this encounter Care Teams Electrical Unit Rebuilder Relationship Specialty Start Date End Date Allyson Avery APRN [address] [place] [address] PCP - General Internal Medicine 07/22/23 documented as of this encounter
[2025-05-04 16:56] LABS: Coronavirus 19, PCR Not Detected (NotDetected); Influenza A, PCR Not Detected (NotDetected); Influenza B, PCR Not Detected (NotDetected)
[2025-05-04 17:11] LABS: Hematocrit 42.4 % (42.0-52.0); Hemoglobin 14.4 g/dL (14.1-18.0); Immature Granulocytes % 0.6 %; Mean Corpuscular HGB Conc 34.0 g/dL (31.8-35.4); Mean Corpuscular Hemoglobin 33.9 pg (27.0-31.2); Mean Corpuscular Volume 99.8 fl (80-94); Nucleated Red Blood Cells % 0 %; Platelet Count 176 K/mm3 (142-424); Red Blood Count 4.25 M/mm3 (4.60-6.20); Red Cell Distribution Width-SD 44.4 fL; White Blood Count 4.7 K/mm3 (4.8-10.8)
[2025-05-04 18:28] LABS: Alanine Aminotransferase 22 U/L (12-78); Albumin Level 4.6 g/dl (3.5-5.0); Albumin/Globulin Ratio 1.7 (1.1-1.8); Alkaline Phosphatase 73 U/L (38-126); Anion Gap 15.1 mEq/L (5-15); Aspartate Amino Transferase 29 U/L (17-59); Bilirubin,Total 0.5 mg/dl (0.2-1.3); Blood Urea Nitrogen 43 mg/dl (9-20); Calcium 10.3 mg/dl (8.4-10.2); Carbon Dioxide 26 mmol/L (22.0-30.0); Chloride 100 mmol/L (98-107); Cholesterol 161 mg/dl (140-200); Creatinine,Serum 1.10 mg/dl (0.66-1.25); Estimated Glomerular Filt Rate 64 ml/min (>60); GFR (African American) 77 ML/MIN (>60); Globulin 2.7 g/dL (1.3-3.2); Glucose 153 mg/dl (74-100); HDL Cholesterol 48 mg/dl (40-60); Magnesium 1.8 mg/dl (1.6-2.3); Potassium 5.1 mmoL/L (3.5-5.1); Sodium 136 mmol/L (136-145); Total Protein,Serum 7.3 g/dl (6.3-8.2); Triglycerides 121 mg/dl (30-150)
[2025-05-04 18:58] LABS: Thyroid Stimulating Hormone 1.79 uIU/mL (0.465-4.68)
[2025-05-04 19:43] LABS: Hemoglobin A1C 7.1 % (4.0-6.0)
[2025-05-04 21:13] LABS: Ferritin 173 ng/ml (17.9-464)
--- OUTSIDE RECORDS SUMMARY | 2025-05-06 10:01 | XMS_ITS | Encounter Summary ---
Author Organization [employer] ([place], [place], [place], [place]) Address [address] [place] [address] Care Team Providers Care Meat Packager Name Role Phone Bennie Allyson BABCOCK Primary Care Provider Encounter Details Date Type Department Care Team (Late st Contact Info) Description 07/02/2019 Transcribed Document [facility] [place] [address] [place] [address] ProviderTatiana MD [address] [place] [address] Social History Tobacco Use Types Packs/Day Years Used Date Smoking Tobacco: Never Assessed Sex and Gender Information Value Date Recorded Sex Assigned at Not on file Legal Sex Male 5:33 PM CDT Gender Identity Not on file Sexual Orientation Not on file documented as of this encounter Miscellaneous Notes * Cerner Conversion Note - Historical ProviderMD - 07/02/2019 2:00 AM CDT Hvac Manager Details Entered On: 07/02/2019 2:23 EDT [...] filedocumented in this encounter Care Teams Meat Packager Relationship Specialty Start Date End Date Allyson Avery, YOKO [address] [phone] PCP - General Nurse Practitioner 02/06/23 documented as of this encounter
--- OUTSIDE RECORDS SUMMARY | 2025-05-06 10:01 | XMS_ITS | Encounter Summary ---
Author Organization [employer] ([place], [place], [place], [place]) Address [address] [place] [address] Care Team Providers Care Wool Batting Worker Name Role Phone Allyson Avery APRN Primary Care Provider Encounter Details Date Type Department Care Team (Late st Contact Info) Description 07/02/2019 Transcribed Document [facility] [place] [address] [place] [address] ProviderTatiana MD [address] [place] [address] Social History Tobacco Use Types Packs/Day Years Used Date Smoking Tobacco: Never Assessed Sex and Gender Information Value Date Recorded Sex Assigned at Not on file Legal Sex Male 5:33 PM CDT Gender Identity Not on file Sexual Orientation Not on file documented as of this encounter Miscellaneous Notes * Cerner Conversion Note - Historical ProviderMD - 07/02/2019 12:49 PM CDT Final [...] : Yes Discharge To Care Management : Home/Residential/Half-Way or Self Care -01 ALMA COSTA RN-Care Management - 07/02/2019 12:49 EDT Electronically signed by Angel [facility] Conversion Canvas Baster Jumpbasting Cerner at 12/20/2022 12:34 PM CDT documented in this encounter Plan of Treatment Not on file documented as of this encounter Visit Diagnoses Not on filedocumented in this encounter Care Teams Wool Batting Worker Relationship Specialty Start Date End Date Allyson Avery APRN [address] [phone] PCP - General Nurse Practitioner 02/06/23 documented as of this encounter
--- OUTSIDE RECORDS SUMMARY | 2025-05-06 10:01 | XMS_ITS | Encounter Summary ---
Author Organization [facility] ([place], [place], [place]) Address [address] [place] [address] Care Team Providers Care Executive Team Leader Name Role Phone Allyson Avery APRN Primary Care Provider [phone] Encounter Details Date Type Department Care Team (Late st Contact Info) Description 07/02/2019 Transcribed Document [facility] [place] [address] [place] [address] ProviderTatiana MD [address] [place] [address] Social History Tobacco Use Types Packs/Day Years [...] Insurance 1 Health Plan: MEDICARE Policy Number: [id number] Authorization Number: Insurance 2 Health Plan: AARP N Policy Number: [id number] Authorization Number: Insurance Primary Name : MEDICARE Policy Number: [id number] AARP N Policy Number: [id number] Historical Authorization Comments-Primary : No Authorization Comments Found TERRI JIMENEZ Rn-Utilization Review - 07/02/2019 9:26 EDT documented in this encounter Plan of Treatment Not on file documented as of this encounter Visit Diagnoses Not on filedocumented in this encounter Care Teams Executive Team Leader Relationship Specialty Start Date End Date Allyson Avery, YOKO [address] [phone] PCP - General Nurse Practitioner 02/06/23 documented as of this encounter
--- OUTSIDE RECORDS SUMMARY | 2025-05-06 10:01 | XMS_ITS | Encounter Summary ---
Author Organization [employer] ([place], [place], [place], [place]) Address [address] [place] [address] Care Team Providers Care Food Stand Manager Name Role Phone Allyson Avery APRN Primary Care Provider Encounter Details Date Type Department Care Team (Late st Contact Info) Description 07/02/2019 Transcribed Document [facility] [place] [address] [place] [address] ProviderTatiana MD [address] [place] [address] Social History Tobacco Use Types Packs/Day Years Used Date Smoking Tobacco: Never Assessed Sex and Gender Information Value Date Recorded Sex Assigned at Not on file Legal Sex Male 5:33 PM CDT Gender Identity Not on file Sexual Orientation Not on file documented as of this encounter Miscellaneous Notes * Cerner Conversion Note - Tatiana ProviderMD - 07/02/2019 10:36 AM CDT Patient Education [...] to eat less sodium. Medicines ??? Take vdch-uxl-atgruqx and prescription medicines only as told by [...] emergency department or call: ??? Emergency services (911 in the [place] ??? A suicide crisis [...] 08/19/2006 Document Revised: 04/29/2018 Document Reviewed: 04/29/2018 [employer] [place] Interactive Patient Education ? 2019 [employer] documented in this encounter Plan of Treatment Not on file documented as of this encounter Visit Diagnoses Not on filedocumented in this encounter Care Teams Food Stand Manager Relationship Specialty Start Date End Date Allyson Avery APRN [address] [address] PCP - General Nurse Practitioner 02/06/23 documented as of this encounter
--- OUTSIDE RECORDS SUMMARY | 2025-05-06 10:01 | XMS_ITS | Encounter Summary ---
Author Organization [employer] ([place], [place], [place], [place]) Address [address] [place] [address] Care Team Providers Care Traffic Analysis Technician Name Role Phone Allyson Avery APRN Primary Care Provider [phone] Encounter Details Date Type Department Care Team (Late st Contact Info) Description 07/02/2019 Transcribed Document [facility] [place] [address] [place] [address] ProviderTatiana MD [address] [place] [address] Social History Tobacco Use Types Packs/Day Years [...] Performed On: 07/02/2019 4:00 EDT by Татьяна Jackson [facility] Unit Coord Height and Weight, Routine Routine Weight Source : Bed scale Routine Weight Entry Format : [place] Routine Weight, Pounds : 181 lb Routine Weight, Ounces : 1 oz Routine Weight Calculation : 82.3 kg Height Source : Stated Height Entry Format : [place] Height, Feet : 5 ft Height, Inches : 9 Inch Clinical Height : 175.26 cm Body Surface Area (BSA), Routine : 1.98 m2 Body Mass Index (BMI), Routine : 26.79 kg/m2 Татьяна Jackson, Commercial Insurance Underwriter-Health Unit Coord - 07/02/2019 3:56 EDT documented in this encounter Plan of Treatment Not on file documented as of this encounter Visit Diagnoses Not on filedocumented in this encounter Care Teams Traffic Analysis Technician Relationship Specialty Start Date End Date Allyson Avery, YOKO [address] [place] [address] PCP - General Nurse Practitioner 02/06/23 documented as of this encounter
--- OUTSIDE RECORDS SUMMARY | 2025-05-06 10:01 | XMS_ITS | Encounter Summary ---
Author Organization [employer] ([place], [place], [place], [place]) Address [address] [place] [address] Care Team Providers Care Slide Forming Machine Operator Name Role Phone Allyson Avery YOKO Primary Care Provider Encounter Details Date Type Department Care Team (Late st Contact Info) Description 07/02/2019 Transcribed Document [facility] Radiology [address] [place] [address] Jf Gallagher MD [address] [place] [address] [address] [place] [address] Social History Tobacco Use Types Packs/Day Years [...] Results Review Radiology Results (Last 48 hours) [id number] -- 07/01/2019 01:59 CR Chest 1 Vw [...] pain with elevated troponin, likely non-ST elevation [place]? Followed by cardiology and cleared for discharge. [...] on filedocumented in this encounter Care Teams Slide Forming Machine Operator Relationship Specialty Start Date End Date Allyson Avery, SENIOR ENLISTED ADVISOR [address] [phone] PCP - General Nurse Practitioner 02/06/23 documented as of this encounter
--- OUTSIDE RECORDS SUMMARY | 2025-05-06 10:01 | XMS_ITS | Encounter Summary ---
Author Organization [employer] ([place], [place], [place], [place]) Address [address] [place] [address] Care Team Providers Care Um Specialist Name Role Phone Allyson Avery APRN Primary Care Provider Encounter Details Date Type Department Care Team (Late st Contact Info) Description 07/01/2019 Transcribed Document [facility] [place] [address] [place] [address] ProviderTatiana MD [address] [place] [address] Social History Tobacco Use Types Packs/Day Years [...] PT : 78 yo male adm to [facility] earlier this AM with Dx of CHEST PAINS PMHx significant for HTN, HLD, CAD, SSS w/ PPM ABRAHAM BUSTOS, PT - 07/01/2019 10:24 EDT Visit Type, PT : Initial evaluation ABRAHAM BUSTOS PT - 07/01/2019 9:56 EDT Patient Orders [...] : Present Attention Assessment Comment : pt [id number] ABRAHAM BUSTOS PT - 07/01/2019 10:24 EDT Edu Topics [...] Pain scale Pain Score Pre-Intervention : 0 JULIABRAHAM GONGORA, PT - 07/01/2019 10:24 EDT Image 1 - Images currently included in the form version of this document have not been included in the text rendition version of the form. Anticipated Discharge Needs, OT/PT Anticipated Discharge to : Home, with family care Anticipated Home Equipment : None Recommend Continued Therapy at Discharge : No ABRAHAM BUSTOS, PT - 07/01/2019 10:24 EDT [place] PT Charges PT Eval Low Complexity : 1 ABRAHAM BUSTOS, PT - 07/01/2019 10:24 EDT documented in this encounter Plan of Treatment Not on file documented as of this encounter Visit Diagnoses Not on filedocumented in this encounter Care Teams Um Specialist Relationship Specialty Start Date End Date Allyson Avery, YOKO [address] [place] [address] PCP - General Nurse Practitioner 02/06/23 documented as of this encounter
--- OUTSIDE RECORDS SUMMARY | 2025-05-06 10:01 | XMS_ITS | Encounter Summary ---
Author Organization [employer] ([place], [place], [place], [place]) Address [address] [place] [address] Care Team Providers Care Finishing Frame Runner Name Role Phone Allyson Avery APRN Primary Care Provider Encounter Details Date Type Department Care Team (Late st Contact Info) Description 07/02/2019 Transcribed Document [facility] [place] [address] [place] [address] ProviderTatiana MD [address] [place] [address] Social History Tobacco Use Types Packs/Day Years [...] Performed On: 07/02/2019 5:00 EDT by Michela Joseph RN Chart Check Powerplans Initiated/Discontinued as Appropriate : Yes All Active Orders Reviewed : Yes Michela Joseph RN - 07/02/2019 4:13 EDT documented in this encounter Plan of Treatment Not on file documented as of this encounter Visit Diagnoses Not on filedocumented in this encounter Care Teams Finishing Frame Runner Relationship Specialty Start Date End Date Allyson Avery, SUPERVISOR INSTRUMENT REPAIR [address] [phone] PCP - General Nurse Practitioner 02/06/23 documented as of this encounter
--- OUTSIDE RECORDS SUMMARY | 2025-05-06 10:01 | XMS_ITS | Encounter Summary ---
Author Organization [facility] Address [address] [place] [address] Care Team Providers Care Set Up Mechanic Stamping Machines Name Role Phone Bennie Allyson BABCOCK Primary Care Provider [phone] Encounter Details Date Type Department Care Team (Late st Contact Info) Description 03/08/2025 Results Follow-Up [facility] [address] [facility] [address] [place] [address] Mansoor Silva MD 1720 [facility] [address] [place] [id number] Social History Tobacco Use Types Packs/Day Years Used Date Smoking Tobacco: Never Smokeless Tobacco: Never Alcohol Use Standard Drinks/Week Comments Never 0 [...] Progress Notes * Mansoor Silva MD - 03/08/2025 4:01 PM EDT Please inform the patient of their test results. Labs are stable continue current medical therapy..Thank you. documented in this encounter Miscellaneous Notes * Telephone Encounter - Jack Cerrato RN - 03/09/2025 11:46 AM EDT Left voicemail with Dr. Silva's recommendations. documented in this encounter Plan of Treatment Upcoming Encounters Date Type Department Care Team (Late st Contact Info) Description 07/20/2025 3:45 PM EST Office Visit [facility] [address] [facility] [address] [place] [address] Rosa De Dios MD [address] [facility] [address] [place] [address] 07/26/2025 2:00 PM EST Office Visit [facility] [address] [facility] [address] [place] [address] Monica Quintero DNP, EXTRACTIVE METALLURGIST [address] [facility] [address] [place] [address] 10/28/2025 1:30 PM EST Office Visit [facility] [address] [facility] [address] [place] [address] Mansoor Silva MD [address] [facility] [address] [place] [address] documented as of this encounter Visit Diagnoses Not on filedocumented in this encounter Care Teams Set Up Mechanic Stamping Machines Relationship Specialty Start Date End Date Allyson Avery APRN [address] [address] [place], [place] [phone] PCP - General Internal Medicine 07/22/23 documented as of this encounter
--- OUTSIDE RECORDS SUMMARY | 2025-05-06 10:01 | XMS_ITS | Encounter Summary ---
Author Organization [employer] ([place], [place], [place], [place]) Address [address] [place] [address] Care Team Providers Care Sales Engineer Account Manager Name Role Phone Allyson Avery APRN Primary Care Provider Encounter Details Date Type Department Care Team (Late st Contact Info) Description 07/01/2019 Transcribed Document [facility] [place] [address] [place] [address] ProviderTatiana MD [address] [place] [address] Social History Tobacco Use Types Packs/Day Years Used Date Smoking Tobacco: Never Assessed Sex and Gender Information Value Date Recorded Sex Assigned at Not on file Legal Sex Male 5:33 PM CDT Gender Identity Not on file Sexual Orientation Not on file documented as of this encounter Miscellaneous Notes * Cerner Conversion Note - Tatiana ProviderMD - 07/01/2019 8:28 AM CDT Patient: PAT [...] of stress recently as he the primary home day care provider for his with 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 He [...] EMANUEL. 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 SSS [...] bundle block Echo pending Electronically signed by [facility], [facility] Conversion Aromatherapist Cerner at 12/20/2022 12:28 PM CDT documented in this encounter Plan of Treatment Not on file documented as of this encounter Visit Diagnoses Not on filedocumented in this encounter Care Teams Sales Engineer Account Manager Relationship Specialty Start Date End Date Allyson Avery, AMBULATORY SERVICES REPRESENTATIVE [address] [address] PCP - General Nurse Practitioner 02/06/23 documented as of this encounter
--- OUTSIDE RECORDS SUMMARY | 2025-05-06 10:01 | XMS_ITS | Encounter Summary ---
Author Organization [employer] ([place], [place], [place], [place]) Address [address] [place] [address] Care Team Providers Care Engineering Lecturer Name Role Phone Allyson Avery APRN Primary Care Provider Encounter Details Date Type Department Care Team (Late st Contact Info) Description 07/02/2019 Transcribed Document [facility] [place] [address] [place] [address] ProviderTatiana MD [address] [place] [address] Social History Tobacco Use Types Packs/Day Years [...] Associated Diagnoses: None Author: JOSHUA CHAPMAN APRN [facility] PROGRESS NOTE: DIAGNOSIS: 1. CP SUBJECTIVE: [...] kg (07/02/19 04:00:00) Routine Weight Entry Format: [place] (07/02/19 04:00:00) Routine Weight Source: Bed scale (07/02/19 04:00:00) Routine Weight, Kilograms: 78.8 kg (07/01/19 04:00:00) Routine Weight, Ounces: 1 oz (07/02/19 04:00:00) Routine Weight, Pounds: 181 lb (07/02/19 04:00:00) Estimated Clinical Dosing Weight: 82.73 kg (07/01/19 03:26:00) [place] Body Weight: 70 kg (07/01/19 03:26:00) Intake [...] 01) HB L 13.0 (JUL 02) 14.0 (JUL 01) HCT L 38.6 (JUL 02) 40.7 (JUL [...] up with Francia one month Adolfo Martinez Electronically signed by Aruna Ortiz Conversion Family Practice Nurse Practitioner Tayo at 12/20/2022 12:28 PM CDT documented in this encounter Plan of Treatment Not on file documented as of this encounter Visit Diagnoses Not on filedocumented in this encounter Care Teams Engineering Lecturer Relationship Specialty Start Date End Date Allyson Avery, KILN REPAIRER [address] [address] PCP - General Nurse Practitioner 02/06/23 documented as of this encounter
--- OUTSIDE RECORDS SUMMARY | 2025-05-06 10:01 | XMS_ITS | Encounter Summary ---
Author Organization [employer] ([place], [place], [place], [place]) Address [address] [place] [address] Care Team Providers Care Detention Officer Name Role Phone Bennie Allyson APRN Primary Care Provider Encounter Details Date Type Department Care Team (Late st Contact Info) Description 07/01/2019 Transcribed Document [facility] [place] Medicine [address] [place] [address] ProviderTatiana MD [address] [place] [address] Social History Tobacco Use Types Packs/Day Years [...] EDT Height Source Stated Height Entry Format [place] Height/Length, [place] (ft) 5 ft Height/Length [place] 9 Inch CLINICALHEIGHT 175.26 cm [place] Body Weight 69.73 kg Weight Source, ED Critical estimated dosing weight Weight Entry Format [place] Weight Welsh lb 182 lb CLINICALWEIGHT 82.73 kg Body [...] ED Adult Triage: ED Clinical Reconciliation: ED toe stripper: Normal Saline Flush: 10 mL, IV Push, [...] % LOW Lymph # 0.43 x10(3)/uL LOW [place] % 3.7 % [place] # 0.41 K/uL Eos % 0.3 % [...] understanding of instructions. Electronically signed by Angel, [facility] Conversion Mathematical Engineer Cerner at 12/20/2022 12:32 PM CDT documented in this encounter Plan of Treatment Not on file documented as of this encounter Visit Diagnoses Not on filedocumented in this encounter Care Teams Detention Officer Relationship Specialty Start Date End Date Allyson Avery, CLIPPER MACHINE [address] [id number] PCP - General Nurse Practitioner 02/06/23 documented as of this encounter
--- OUTSIDE RECORDS SUMMARY | 2025-05-06 10:01 | XMS_ITS | Encounter Summary ---
Author Organization [employer] ([place], [place], [place], [place]) Address [address] [place] [address] Care Team Providers Care Hand Engraver Name Role Phone Bennie Allyson BABCOCK Primary Care Provider Encounter Details Date Type Department Care Team (Late st Contact Info) Description 07/01/2019 Transcribed Document [facility] [place] Medicine [address] [place] [address] ProviderTatiana MD [address] [place] [address] Social History Tobacco Use Types Packs/Day Years [...] Sixto Shelton RN - 07/01/2019 4:56 EDT Electronically signed by Angel [facility] Conversion Online Trader Cerner at 12/20/2022 12:07 PM CDT documented in this encounter Plan of Treatment Not on file documented as of this encounter Visit Diagnoses Not on filedocumented in this encounter Care Teams Hand Engraver Relationship Specialty Start Date End Date Allyson Avery, BANK GUARD [address] [phone] PCP - General Nurse Practitioner 02/06/23 documented as of this encounter
--- OUTSIDE RECORDS SUMMARY | 2025-05-06 10:01 | XMS_ITS | Clinical Summary ---
Author Organization [facility] Address [address] [place] [address] Care Team Providers Care Customer Assistance Representative Name Role Phone Allyson Avery YOKO Primary Care Provider [phone] Allergies No known active allergies Medications fish [...] by mouth twice a day. 60 tablet 07/22/2023 Active Active Problems Problem Noted Date Diagnosed Date Arthritis 07/30/2023 07/30/2023 Dermatophytosis of nail 07/30/2023 07/30/20 Generalized edema 07/30/2023 07/30/2023 Gout 07/30/2023 07/30/2023 Ischemic cardiomyopathy 07/30/2023 07/30/20 Overview (07/30/2023): 03/16/20 Upgrade of his dual-chamber pacemaker to [facility] dual-chamber ICD Venous reflux 07/30/2023 07/30/2023 Chronic systolic congestive heart failure 202107/30/2023 Overview (07/30/2023): 06/29/21 Echo: LVEF 36-40%, grade II diastolic dysfunction, moderate MR, moderately reduced RVSF Hypothyroidism (acquired) 03/15/20212022 Cardiac pacemaker in situ 08/02/20172022 Sick sinus syndrome 07/05/2017 07/30/2023 Overview (07/30/2023): 03/16/20 Upgrade of his dual-chamber pacemaker to [facility] dual-chamber ICD Essential hypertension 01/16/2016 3 Peripheral arterial disease 07/15/201507/04 Overview (07/30/2023): 06/26/21: Stress PET: Medium sized infarct in inferior wall with no significant ischemia, LVEF 36% 10/12/16 LHC: Significant stenosis in the SVG to OM2/3 treated with EMANUEL. Moderate lesion distal to the MONROY to the LAD 50-70% by Dr. Silva @ [facility] 12/09/14 LHC: 1/3 grafts occluded, [...] Care Team (Late st Contact Info) Description 08/09/2025 1:00 PM EST Office Visit [facility] [address] [place] [address] Heath Kaplan MD [address] [address] Health Maintenance Due Date Last Done Comments [facility]-Depression Screening 1940 [facility]-Medicare Annual Wellness (AWV) 1940 [facility]-Infant/Child/Adol SDOH Screenings 1940 [facility]- SDOH Screenings 1957 [facility]-Adult SDOH Screenings 1957 [facility]-Pneumococcal Vaccine: 50+ Years (1 of 2 - PCV) 1958 05/22/2016 [facility]-Zoster Vaccines (1 of 2) 1989 [facility]-RSV Vaccine: 60+ Years or (1 - 1-dose 75+ series) 2014 [facility]-DTaP,Tdap,and Td Vaccines (1 - Tdap) 04/19/2022 04/18/2022 LAM-WJMTN-05 Vaccine (4 - 2023- season) 2024 10/02/2021, 12/02/2020, 11/03/2020 [facility]-Influenza Vaccine (#1) 05/03/202507/21, 06/25/2023 HPV Vaccines Aged Out No longer eligi ble based on patient's age to complete this topic [facility]-HIB Vaccines Aged Out No longer e [...] age to complete this topic [place] [address] [facility] Care Teams Customer Assistance Representative Relationship Specialty Start Date End Date Allyson Avery APRN [address] [place] [address] PCP - General 01/13/21
--- OUTSIDE RECORDS SUMMARY | 2025-05-06 10:01 | XMS_ITS | Encounter Summary ---
Author Organization [employer] ([place], [place], [place], [place]) Address [address] [place] [address] Care Team Providers Care Supervisor Cab Name Role Phone Peace Averynisaw BABCOCK Primary Care Provider Encounter Details Date Type Department Care Team (Late st Contact Info) Description 07/02/2019 Transcribed Document [facility] [place] Family Medicine [address] [place] [address] ProviderTatiana MD [address] [place] [address] Social History Tobacco Use Types Packs/Day Years Used Date Smoking Tobacco: Never Assessed Sex and Gender Information Value Date Recorded Sex Assigned at Not on file Legal Sex Male 5:33 PM CDT Gender Identity Not on file Sexual Orientation Not on file documented as of this encounter Miscellaneous Notes * Cerner Conversion Note - Tatiana Polanco MD - 07/02/2019 12:40 PM CD[place] [address] PAT MENCHACA :1940 Visit Time:07/01/2019 Your Visit Summary Your Care Team Admitting Physician - ROMAN NGUYEN MD-INT CHEVY WILL MD PHY, UNKNOWN Attending Physician - ROMAN NGUYEN MD-CHEVY DELVALLE MD Primary Care Physician - JADA HOLBROOK [...] EST Comments Appointment has been made Where: [address] [place] [address] [phone] [facility] (1) Medications What How Much When Instructions Next Dose metoprolol (Metoprolol Tartrate 25 mg oral tablet) 0.5 Tablet(s) Oral Two Times A Day Refills: 3 Pickup at [facility] esomeprazole (NexIUM 40 mg oral delayed release [...] 2 Capsule(s) Oral Every Day Pharmacy Information [facility]: [address] [place] [id number] [phone] Take your medications faithfully. Do NOT skip [...] to eat less sodium. Medicines ??? Take vzfe-ejk-dbzhwyn and prescription medicines only as told by [...] emergency department or call: ??? Emergency services (767 in the [place] ??? A suicide crisis [...] 08/19/2006 Document Revised: 04/29/2018 Document Reviewed: 04/29/2018 [employer] Patient Education ?? 2019 [employer] Emergency Awareness and Preventative Care STROKE [...] Assistance with quitting is available by contacting 8-570-ZGKKNOW. This is a free resource providing counseling, [...] range between ( 0.0 and 7.0 ) [place] #: 0.36 K/uL -- Normal range between ( 0.16 and 1.00 ) Eos #: 0.17 x10(3)/uL -- Normal range between ( 0.00 and 0.80 ) [place] %: 3.9 % -- Normal range between [...] ) Urine Bilirubin Dipstick: Small Urine Specific [place]: 1.024 -- Normal range between ( 1.005 and 1.030 ) Urine Type.: U CleanCatch General Chemistry 07/02/2019 11:02 AM Glucose POC2: [...] 10:03 AM US Gallbladder: US Gallbladder Patient Name:PAT MENCHACA I have received and understand this information and was given the opportunity to ask questions. Patient/Purchasing Contracting Clerk Name: Patient/Purchasing Contracting Clerk Signature: Relationship to Patient: Clinician/Hospital Purchasing Contracting Clerk Signature: Date: documented in this encounter Plan of Treatment Not on file documented as of this encounter Visit Diagnoses Not on filedocumented in this encounter Care Teams Supervisor Cab Relationship Specialty Start Date End Date Allyson Avery, ARMHOLE RAISER LOCKSTITCH [address] [address] PCP - General Nurse Practitioner 02/06/23 documented as of this encounter
--- OUTSIDE RECORDS SUMMARY | 2025-05-06 10:01 | XMS_ITS | Encounter Summary ---
Author Organization [facility] Address [address] [place] [address] Care Team Providers Care Editor Managing Newspaper Name Role Phone Bennie Allyson BABCOCK Primary Care Provider [phone] Encounter Details Date Type Department Care Team (Late st Contact Info) Description 01/11/2025 Results Follow-Up [facility] CARDIOLOGY [address] [facility] [address] [place] [address] Mansoor Silva MD [address] [facility] [address] [place] [id number] Social History Tobacco Use Types Packs/Day Years [...] Description 07/20/2025 3:45 PM EST Office Visit [facility] ENDOCRINOLOGY [address] [facility] [address] [place] [address] Rosa De Dios MD [address] [facility] [address] [place] [address] 07/26/2025 2:00 PM EST Office Visit [facility] NEUROLOGY [address] [facility] [address] [place] [address] Monica Quintero, DNP, PRODUCTION CONTROL ANALYST [address] [facility] [address] [place] [address] 10/28/2025 1:30 PM EST Office Visit [facility] C[facility] [address] [facility] [address] [place] [address] Mansoor Silva MD [address] [facility] [address] [place] [address] documented as of this encounter Visit Diagnoses Not on filedocumented in this encounter Care Teams Editor Managing Newspaper Relationship Specialty Start Date End Date Allyson Avery APRN [address] [place] [address] PCP - General Internal Medicine 07/22/23 documented as of this encounter
--- OUTSIDE RECORDS SUMMARY | 2025-05-06 10:01 | XMS_ITS | Encounter Summary ---
Author Organization [employer] ([place], [place], [place], [place]) Address [address] [place] [address] Care Team Providers Care Design Printing Machine Set Up Operator Name Role Phone Allyson Avery APRN Primary Care Provider [phone] Encounter Details Date Type Department Care Team (Late st Contact Info) Description 07/02/2019 Transcribed Document [facility] [place] Family Medicine [address] [place] [address] ProviderTatiana MD [address] [place] [address] Social History Tobacco Use Types Packs/Day Years Used Date Smoking Tobacco: Never Assessed Sex and Gender Information Value Date Recorded Sex Assigned at Not on file Legal Sex Male 5:33 PM CDT Gender Identity Not on file Sexual Orientation Not on file documented as of this encounter Miscellaneous Notes * Cerner Conversion Note - Historical ProviderMD - 07/02/2019 1:04 PM CDT Nursing Discharge Summary Entered On: 07/02/2019 13:04 EDT Performed On: 07/02/2019 13:04 EDT by Heath Haywood RN Discharge Documentation Discharge Date/Time : 07/02/2019 13:04 EDT [...] Heath Haywood RN - 07/02/2019 13:04 EDT documented in this encounter Plan of Treatment Not on file documented as of this encounter Visit Diagnoses Not on filedocumented in this encounter Care Teams Design Printing Machine Set Up Operator Relationship Specialty Start Date End Date Allyson Avery, YOKO [address] [place] [address] PCP - General Nurse Practitioner 02/06/23 documented as of this encounter
--- OUTSIDE RECORDS SUMMARY | 2025-05-06 10:01 | XMS_ITS | Encounter Summary ---
Author Organization [employer] ([place], [place], [place]) Address [address] [place] [address] Care Team Providers Care Hydraulic Spinner Name Role Phone Allyson Avery APRN Primary Care Provider Encounter Details Date Type Department Care Team (Late st Contact Info) Description 07/01/2019 Transcribed Document [facility] [place] Family Medicine [address] [place] [address] ProviderTatiana MD [address] [place] [address] Social History Tobacco Use Types Packs/Day Years [...] on filedocumented in this encounter Care Teams Hydraulic Spinner Relationship Specialty Start Date End Date Allyson Avery APRN [address] [place] [address] PCP - General Nurse Practitioner 02/06/23 documented as of this encounter
--- OUTSIDE RECORDS SUMMARY | 2025-05-06 10:01 | XMS_ITS | Encounter Summary ---
Author Organization [employer] ([place], [place], [place], [place]) Address [address] [place] [address] Care Team Providers Care Lead Burner Name Role Phone Allyson Avery APRN Primary Care Provider Encounter Details Date Type Department Care Team (Late st Contact Info) Description 07/01/2019 Transcribed Document [facility] [place] Family Medicine [address] [place] [address] ProviderTatiana MD [address] [place] [address] Social History Tobacco Use Types Packs/Day Years Used Date Smoking Tobacco: Never Assessed Sex and Gender Information Value Date Recorded Sex Assigned at Not on file Legal Sex Male 5:33 PM CDT Gender Identity Not on file Sexual Orientation Not on file documented as of this encounter Miscellaneous Notes * Cerner Conversion Note - Tatiana ProviderMD - 07/01/2019 3:39 AM CDT Provider Notification Entered On: 07/01/2019 4:57 EDT Performed On: 07/01/2019 3:39 EDT by Sixto Shelton, RN Provider Notification Provider Notified of Concerns/Results : Fever Provider Notified of : Nurse concerns Provider Notified Name : ROMAN NGUYEN MD-INT Sixto Shelton, RN - 07/01/2019 4:56 EDT Electronically signed by Angel [facility] Conversion Nca Certified Concierge Cerner at 12/20/2022 12:06 PM CDT documented in this encounter Plan of Treatment Not on file documented as of this encounter Visit Diagnoses Not on filedocumented in this encounter Care Teams Lead Burner Relationship Specialty Start Date End Date AveryHiene, CHILD CARE COOK [address] [place] [address] PCP - General Nurse Practitioner 02/06/23 documented as of this encounter
--- OUTSIDE RECORDS SUMMARY | 2025-05-06 10:02 | XMS_ITS | Encounter Summary ---
Author Organization [employer] ([place], [place], [place], [place]) Address [address] [place] [address] Care Team Providers Care Chemical Equipment Repairer Name Role Phone Allyson Avery APRN Primary Care Provider Encounter Details Date Type Department Care Team (Late st Contact Info) Description 03/15/2020 Transcribed Document [facility] [place] Family Medicine [address] [place] [address] ProviderTatiana MD [address] [place] [address] Social History Tobacco Use Types Packs/Day Years [...] On: 03/15/2020 15:20 EDT by CINDY GOMES RN-Speaker Wirer Initial Assessment I Previously Documented Living Environment : No qualifying data available. 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 Allyson Avery Does Patient have PCP Listed? : Yes Legal Guardian : No Date Hospital Obtained Advance Directive : 03/14/2020 EDT CINDY GOMES RN-Speaker Wirer - 03/15/2020 15:20 EDT Initial Assessment II Sensory and Motor Deficits : None Current Home Treatments and Equipment : None CINDY GOMES RN-Speaker Wirer - 03/15/2020 15:20 EDT Discharge Needs I Anticipated Discharge Date : 03/17/2020 EDT Anticipated Discharge To, CM : Home with family care Current Home Treatment/Equipment : Current Home Treatment/Equipment No qualifying data available. Post Acute/Home Treatments : None Documentation Status Complete : Yes CINDY GOMES RN-Speaker Wirer - 03/15/2020 15:20 EDT Discharge Needs II Professional Skilled Services : Professional Skilled Services No qualifying data available. 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 Plan C today. 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 His daughter Jesika is also involved in his care [phone]. Patient's PCP is MARCO Duncan. 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 No prior rehab stay, home health, oxygen or DME. Patient's family will transport on discharge. DCP: Anticipate patient will discharge home with family. CM will follow for any needed referrals. CINDY GOMES RN-Speaker Wirer - 03/15/2020 15:20 EDT documented in this encounter Plan of Treatment Not on file documented as of this encounter Visit Diagnoses Not on filedocumented in this encounter Care Teams Chemical Equipment Repairer Relationship Specialty Start Date End Date Allyson Avery, CONVENTIONS RESERVATIONIST [address] [address] PCP - General Nurse Practitioner 02/06/23 documented as of this encounter
--- OUTSIDE RECORDS SUMMARY | 2025-05-06 10:02 | XMS_ITS | Encounter Summary ---
Author Organization [employer] ([place], [place], [place]) Address [address] [place] [address] Care Team Providers Care Picking Table Worker Name Role Phone Allyson Avery APRN Primary Care Provider Encounter Details Date Type Department Care Team (Late st Contact Info) Description 07/01/2019 Transcribed Document [facility] [place] Family Medicine [address] [place] [address] ProviderTatiana MD [address] [place] [address] Social History Tobacco Use Types Packs/Day Years [...] : Oriented x 4 PAYTON GONZALEZ OTR/Belia 07/01/2019 14:28 EDT Indication Assessment, OT Occupational [...] activities PAYTON GONZALEZ OTR/Belia 07/01/2019 14:28 EDT [facility] Goals, OT Dressing, Lower Body LTG Grid Goal #1 Activity : Dressing, Lower Body Assist : Independent, complete Date to Meet : 07/15/2019 EST Goal Status : Initial goal PAYTON GONZALEZ OTR/Belia - 07/01/2019 14:28 EDT Toilet Transfer LTG Grid [...] Goal Status : Initial goal PAYTON GONZALEZ OTRJanet 07/01/2019 14:28 EDT Treatment Note Subjective Comment [...] for Treatment : See LTG PAYTON GONZALEZ OTR/L - 07/01/2019 14:28 EDT Pain Assessment Pain Scaled Used : 0-10 Pain scale Pain Score Pre-Intervention : 0 PAYTON GONZALEZ OTR/L - 07/01/2019 14:28 EDT Image 1 - Images currently included in the form version of this document have not been included in the text rendition version of the form. [place] OT Charges OT Selfcare/Hm Mgmt Ea 15 Min : 1 OT Eval Low Complexity : 1 PAYTON GONZALEZ OTR/Belia - 07/01/2019 14:28 EDT documented in this encounter Plan of Treatment Not on file documented as of this encounter Visit Diagnoses Not on filedocumented in this encounter Care Teams Picking Table Worker Relationship Specialty Start Date End Date Allyson Avery APRN [address] [address] PCP - General Nurse Practitioner 02/06/23 documented as of this encounter
--- OUTSIDE RECORDS SUMMARY | 2025-05-06 10:02 | XMS_ITS | Encounter Summary ---
Author Organization [employer] ([place], [place], [place], [place]) Address [address] [place] [address] Care Team Providers Care Indigo Mixer Name Role Phone Bennie Allyson BABCOCK Primary Care Provider Encounter Details Date Type Department Care Team (Late st Contact Info) Description 03/15/2020 Transcribed Document [facility] [place] [address] [place] [address] ProviderTatinaa MD [address] [place] [address] Social History Tobacco Use Types Packs/Day Years [...] Isabel Kang RN - 03/15/2020 19:58 EDT documented in this encounter Plan of Treatment Not on file documented as of this encounter Visit Diagnoses Not on filedocumented in this encounter Care Teams Indigo Mixer Relationship Specialty Start Date End Date Allyson Avery, MANIFOLD BUILDER [address] [place] [address] PCP - General Nurse Practitioner 02/06/23 documented as of this encounter
--- OUTSIDE RECORDS SUMMARY | 2025-05-06 10:02 | XMS_ITS | Encounter Summary ---
Author Organization [employer] ([place], [place], [place], [place]) Address [address] [place] [address] Care Team Providers Care Disaster Or Damage Control Specialist Name Role Phone Allyson Avery APRN Primary Care Provider Encounter Details Date Type Department Care Team (Late st Contact Info) Description 03/17/2020 Transcribed Document [facility] [place] Family Medicine [address] [place] [address] ProviderTatiana MD [address] [place], [place] [id number] Social History Tobacco Use Types Packs/Day Years [...] Lorenzo Kathleen RN - 03/17/2020 5:39 EDT Electronically signed by Angel [facility] Conversion Informatics Pharmacist Cerner at 12/20/2022 12:26 PM CDT documented in this encounter Plan of Treatment Not on file documented as of this encounter Visit Diagnoses Not on filedocumented in this encounter Care Teams Disaster Or Damage Control Specialist Relationship Specialty Start Date End Date AveryHiene, PROGRESS CLERK [address] [place] [address] PCP - General Nurse Practitioner 02/06/23 documented as of this encounter
--- OUTSIDE RECORDS SUMMARY | 2025-05-06 10:02 | XMS_ITS | Encounter Summary ---
Author Organization [employer] ([place], [place], [place], [place]) Address [address] [place] [address] Care Team Providers Care Chin Strap Sewer Name Role Phone Allyson Avery YOKO Primary Care Provider Encounter Details Date Type Department Care Team (Late st Contact Info) Description 03/15/2020 Transcribed Document [facility] 1 [place] [address] Jf Gallagher MD [address] [place] [address] [address] [place] [address] Social History Tobacco Use Types Packs/Day Years [...] None Author: JF GALLAGHER MD-INT Subjective PCP: [facility] DOA: 03/13/2020 DOD: HPI: 79 year-old gentleman admitted to the hospital with a near syncopal episode and possibly V. tach CODE STATUS: Modified code as documented in the chart intubation and full treatment but no ACLS CONSULTS: Cardiology, [facility] WORKUP / PROCEDURES: HOSPITAL FOLLOWUP: 03/14/2020 [...] SBP 130 (MAR 15 06:00) 119 (MAR 14:) 140 (MAR 14 09:42) DBP 75 (MAR [...] Results Review Radiology Results (Last 48 hours) [id number] -- 03/14/2020 08:12 CT Head WO (03/13/2020 [...] on filedocumented in this encounter Care Teams Chin Strap Sewer Relationship Specialty Start Date End Date Allyson Avery APRN [address] [phone] PCP - General Nurse Practitioner 02/06/23 documented as of this encounter
--- OUTSIDE RECORDS SUMMARY | 2025-05-06 10:02 | XMS_ITS | Encounter Summary ---
Author Organization [employer] ([place], [place], [place], [place]) Address [address] [place] [address] Care Team Providers Care Grain Trimmer Name Role Phone Allyson Avery APRN Primary Care Provider Encounter Details Date Type Department Care Team (Late st Contact Info) Description 07/01/2019 Transcribed Document [facility] Family Medicine [address] [place] [address] ProviderTatiana MD [address] [place] [address] Social History Tobacco Use Types Packs/Day Years [...] On: 07/01/2019 4:00 EDT by Deedee Aiken, Clinical Trial Specialist-Student Nurse Height and Weight, Routine Routine Weight Source : Bed scale Routine Weight Entry Format : Metric Routine Weight, Kilograms : 78.8 kg(Converted to: 173 lb 12 oz) Routine Weight Calculation : 78.8 kg Height Source : Stated Height Entry Format : [place] Height, Feet : 5 ft Height, Inches : 9 Inch Clinical Height : 175.26 cm Body Surface Area (BSA), Routine : 1.95 m2 Body Mass Index (BMI), Routine : 25.65 kg/m2 Deedee Aiken, Clinical Trial Specialist-Student Nurse - 07/01/2019 6:25 EDT documented in this encounter Plan of Treatment Not on file documented as of this encounter Visit Diagnoses Not on filedocumented in this encounter Care Teams Grain Trimmer Relationship Specialty Start Date End Date Allyson Avery, ASSET PROTECTION AGENT [address] [phone] PCP - General Nurse Practitioner 02/06/23 documented as of this encounter
--- OUTSIDE RECORDS SUMMARY | 2025-05-06 10:02 | XMS_ITS | Encounter Summary ---
Author Organization [employer] ([place], [place], [place], [place]) Address [address] [place] [address] Care Team Providers Care Waste Transportation Technician Name Role Phone Allyson Avery APRN Primary Care Provider Encounter Details Date Type Department Care Team (Late st Contact Info) Description 03/13/2020 Transcribed Document [facility] [place] [address] [place] [address] ProviderTatiana MD [address] [place] [address] Social History Tobacco Use Types Packs/Day Years Used Date Smoking Tobacco: Never Assessed Sex and Gender Information Value Date Recorded Sex Assigned at Not on file Legal Sex Male 5:33 PM CDT Gender Identity Not on file Sexual Orientation Not on file documented as of this encounter Miscellaneous Notes * Cerner Conversion Note - Historical ProviderMD - 03/13/2020 9:29 PM CDT [place] Suicide Severity Rating Scale (C-SSRS) Entered On: 03/13/2020 21:44 EDT Performed On: 03/13/2020 21:44 EDT by Salty Wolff RN [place] Suicide Severity Rating Scale (C-SSRS) CSSRS Past [...] on filedocumented in this encounter Care Teams Waste Transportation Technician Relationship Specialty Start Date End Date Allyson Avery, YOKO [address] [phone] PCP - General Nurse Practitioner 02/06/23 documented as of this encounter
--- OUTSIDE RECORDS SUMMARY | 2025-05-06 10:02 | XMS_ITS | Encounter Summary ---
Author Organization [employer] ([place], [place], [place], [place]) Address [address] [place] [address] Care Team Providers Care Process Lead Name Role Phone Allyson Avery APRN Primary Care Provider [phone] Encounter Details Date Type Department Care Team (Late st Contact Info) Description 03/14/2020 Transcribed Document [facility] Family Medicine [address] [place] [address] ProviderTatiana MD [address] [place] [address] Social History Tobacco Use Types Packs/Day Years [...] 03/14/2020 9:53 EDT Electronically signed by Angel [facility] Conversion Contact Centre Supervisor Cerner at 12/20/2022 12:13 PM CDT documented in this encounter Plan of Treatment Not on file documented as of this encounter Visit Diagnoses Not on filedocumented in this encounter Care Teams Process Lead Relationship Specialty Start Date End Date Allyson Avery, YOKO [address] [address] PCP - General Nurse Practitioner 02/06/23 documented as of this encounter
--- OUTSIDE RECORDS SUMMARY | 2025-05-06 10:02 | XMS_ITS | Encounter Summary ---
Author Organization [employer] ([place], [place], [place], [place]) Address [address] [place] [address] Care Team Providers Care Format Proofreader Name Role Phone Allyson Avery APRN Primary Care Provider Encounter Details Date Type Department Care Team (Late st Contact Info) Description 03/15/2020 Transcribed Document [facility] Family Medicine [address] [place] [address] ProviderTatiana MD [address] [place] [address] Social History Tobacco Use Types Packs/Day Years [...] On: 03/15/2020 4:00 EDT by Rudolph Mcadams [facility] Height and Weight, Routine Routine Weight Source : Bed scale Routine Weight Entry Format : [place] Routine Weight, Pounds : 173 lb Routine Weight, Ounces : 2 oz Routine Weight Calculation : 78.69 kg Height Source : Stated Height Entry Format : [place] Height, Feet : 6 ft Height, Inches : 0 Inch Clinical Height : 182.88 cm Body Surface Area (BSA), Routine : 2.01 m2 Body Mass Index (BMI), Routine : 23.53 kg/m2 Rudolph Mcadams Care Asst-Health Unit Coord - 03/15/2020 4:32 EDT documented in this encounter Plan of Treatment Not on file documented as of this encounter Visit Diagnoses Not on filedocumented in this encounter Care Teams Format Proofreader Relationship Specialty Start Date End Date Allyson Avery, DRY MILL WORKER [address] [place] [address] PCP - General Nurse Practitioner 02/06/23 documented as of this encounter
--- OUTSIDE RECORDS SUMMARY | 2025-05-06 10:02 | XMS_ITS | Encounter Summary ---
Author Organization [employer] ([place], [place], [place], [place]) Address [address] [place] [address] Care Team Providers Care Geographic Information Systems Manager Name Role Phone Allyson Avery YOKO Primary Care Provider [phone] Encounter Details Date Type Department Care Team (Late st Contact Info) Description 03/16/2020 Transcribed Document [facility] Radiology 1 [place] [address] Jf Gallagher MD [address] [place] [address] [address] [place] [address] Social History Tobacco Use Types Packs/Day Years [...] Author: JF GALLAGHER MD-INT Subjective PCP: [facility] DOA: 03/13/2020 DOD: HPI: 79 year-old gentleman admitted to the hospital with a near syncopal episode and possibly V. tach CODE STATUS: Modified code as documented in the chart intubation and full treatment but no ACLS CONSULTS: Cardiology, [facility] WORKUP / PROCEDURES: Cardiac Cath DATE OF [...] the anterior wall. No mitral insufficiency noted. [place] CORONARY ARTERIOGRAPHY: Left coronary artery: Left main [...] 16 (MAR 16 06:30) L 12 (MAR 15 15:30) H 32 (MAR 15 17:45) SBP 117 [...] Cooperative. Results Review No Radiology Results Found WHIT 15 00:17 139 106 20 / H 153 [...] on filedocumented in this encounter Care Teams Geographic Information Systems Manager Relationship Specialty Start Date End Date Allyson Avery, YOKO [address] [address] PCP - General Nurse Practitioner 02/06/23 documented as of this encounter
--- OUTSIDE RECORDS SUMMARY | 2025-05-06 10:02 | XMS_ITS | Encounter Summary ---
Author Organization [employer] ([place], [place], [place], [place]) Address [address] [place] [address] Care Team Providers Care Dewatering Filtering Supervisor Name Role Phone Bennie Allyson BABCOCK Primary Care Provider Encounter Details Date Type Department Care Team (Late st Contact Info) Description 03/17/2020 Transcribed Document [facility] Family Medicine [address] [place] [address] ProviderTatiana MD [address] [place] [address] Social History Tobacco Use Types Packs/Day Years [...] on filedocumented in this encounter Care Teams Dewatering Filtering Supervisor Relationship Specialty Start Date End Date Allyson Avery, LIFT MANAGER [address] [address] PCP - General Nurse Practitioner 02/06/23 documented as of this encounter
--- OUTSIDE RECORDS SUMMARY | 2025-05-06 10:02 | XMS_ITS | Encounter Summary ---
Author Organization [employer] ([place], [place], [place], [place]) Address [address] [place] [address] Care Team Providers Care Unix Engineer Name Role Phone Allyson Avery APRN Primary Care Provider Encounter Details Date Type Department Care Team (Late st Contact Info) Description 03/13/2020 Transcribed Document [facility] [place] [address] [place] [address] ProviderTatiana MD [address] [place] [address] Social History Tobacco Use Types Packs/Day Years [...] : 2 - Emergent Tracking Group : [facility] ED Salty Wolff RN - 03/13/2020 [...] 21:44:26 EDT) Problems(Active) Allergic rhinitis (SNOMED CT :327865734 ) Name of Problem: Allergic rhinitis ; Recorder: CONSTANTIN DARDEN RN; Confirmation: Confirmed ; Classification: Patient Stated ; Code: [id number] ; Contributor System: Given.toChart ; Last Updated: 12/09/2014 8:09 EDT ; Life Cycle Date: 12/09/2014 ; Life Cycle Status: Active ; Vocabulary: SNOMED CT Angina (SNOMED CT :191690376 ) Name of Problem: Angina ; Recorder: CONSTANTIN DARDEN RN; Confirmation: Confirmed ; Classification: Patient Stated ; Code: 513663620 ; Contributor System: Given.toChart ; Last Updated: 12/09/2014 8:09 EDT ; Life Cycle Date: 12/09/2014 ; Life Cycle Status: Active ; Vocabulary: SNOMED CT Arthritis (SNOMED CT :7706836 ) Name of Problem: Arthritis ; Recorder: CONSTANTIN DARDEN RN; Confirmation: Confirmed ; Classification: Patient Stated ; Code: 0290148 ; Contributor System: Given.toChart ; Last Updated: 12/09/2014 8:11 EDT ; Life Cycle Date: 12/09/2014 ; Life Cycle Status: Active ; Vocabulary: SNOMED CT At risk for sleep apnea (IMO :24974176 ) Name of Problem: At risk for sleep apnea ; Recorder: SYSTEM, SYSTEM; Confirmation: Confirmed ; Classification: Medical ; Code: 80630007 ; Last Updated: 07/01/2019 3:39 EDT ; Life Cycle Date: 07/01/2019 ; Life Cycle Status: Active ; Vocabulary: IMO Cardiac arrhythmia (SNOMED CT :8105150236 ) Name of Problem: Cardiac arrhythmia ; Recorder: CONSTANTIN DARDEN RN; Confirmation: Confirmed ; Classification: Patient Stated ; Code: 9383626827 ; Contributor System: PowerChart ; Last Updated: 12/09/2014 8:10 EDT ; Life Cycle Date: 12/09/2014 ; Life Cycle Status: Active ; Vocabulary: SNOMED CT Coronary artery disease (SNOMED CT :2682319647 ) Name of Problem: Coronary artery disease ; Recorder: CONSTANTIN DARDEN RN; Confirmation: Confirmed ; Classification: Patient Stated ; Code: 6904776705 ; Contributor System: PowerChart ; Last Updated: 12/09/2014 8:09 EDT ; Life Cycle Date: 12/09/2014 ; Life Cycle Status: Active ; Vocabulary: SNOMED CT Hard of hearing (SNOMED CT :702524614 ) Name of Problem: Hard of hearing ; Recorder: CONSTANTIN DARDEN RN; Confirmation: Confirmed ; Classification: Patient Stated ; Code: 511235410 ; Contributor System: PowerChart ; Last Updated: 12/09/2014 8:08 EDT ; Life Cycle Date: 12/09/2014 ; Life Cycle Status: Active ; Vocabulary: SNOMED CT Hyperlipidemia (SNOMED CT :56859126 ) Name of Problem: Hyperlipidemia ; Recorder: CONSTANTIN DARDEN RN; Confirmation: Confirmed ; Classification: Patient Stated ; Code: 39661515 ; Contributor System: PowerChart ; Last Updated: 07/31/2017 13:39 EST ; Life Cycle Date: 12/09/2014 ; Life Cycle Status: Active ; Vocabulary: SNOMED CT Hypertension (SNOMED CT :01105732 ) Name of Problem: Hypertension ; Recorder: CONSTANTIN DARDEN RN; Confirmation: Confirmed ; Classification: Patient Stated ; Code: 97840573 ; Contributor System: PowerChart ; Last Updated: 12/09/2014 8:09 EDT ; Life Cycle Date: 12/09/2014 ; Life Cycle Status: Active ; Vocabulary: SNOMED CT Myocardial infarction (SNOMED CT :20480237 ) Name of Problem: Myocardial infarction ; Recorder: CONSTANTIN DARDEN RN; Confirmation: Confirmed ; Classification: Patient Stated ; Code: 84510367 ; Contributor System: Given.toChart ; Last Updated: 12/09/2014 8:11 EDT ; Life Cycle Date: 12/09/2014 ; Life Cycle Status: Active ; Vocabulary: SNOMED CT Renal calculi (SNOMED CT :347234929 ) Name of Problem: Renal calculi ; Recorder: CONSTANTIN DARDEN RN; Confirmation: Confirmed ; Classification: Patient Stated ; Code: 221286818 ; Contributor System: Given.toChart ; Last Updated: 12/09/2014 8:12 EDT ; Life Cycle Date: 12/09/2014 ; Life Cycle Status: Active ; Vocabulary: SNOMED CT Stented coronary artery (SNOMED CT :9953362212 ) Name of Problem: Stented coronary artery ; Recorder: CONSTANTIN DARDEN RN; Confirmation: Confirmed ; Classification: Patient Stated ; Code: 3695105987 ; Contributor System: PowerChart ; Last Updated: 12/09/2014 8:09 EDT ; Life Cycle Date: 12/09/2014 ; Life Cycle Status: Active ; Vocabulary: SNOMED CT Diagnoses(Active) HTN - Hypertension Date: 03/13/2020 ; Diagnosis Type: Reason For Visit ; Confirmation: Complaint of ; Clinical Dx: HTN - Hypertension ; Classification: Medical ; Clinical Service: Emergency medicine ; Code: PNED ; Probability: 0 ; Diagnosis Code: [id number] ED Height and Weight Height Source : Stated Height Entry Format : [place] Height, Feet : 6 ft(Converted to: 183 cm, 72 Inch) Height, Inches : 0 Inch(Converted to: 0 ft 0 Inch, 0.00 cm) Clinical Height : 182.88 cm Weight Source, ED : Critical estimated dosing weight Weight Entry Format : [place] Weight, Pounds : 175 lb Clinical Dosing Weight : 79.55 kg Body Surface Area (BSA) : 2.01 m2 Body Mass Index : 23.8 kg/m2 [place] Body Weight (IBW) : 76.59 kg Salty Wolff RN - 03/13/2020 21:38 EDT Electronically signed by Angel [facility] Conversion Track Maintainer Cerner at 12/20/2022 12:30 PM CDT documented in this encounter Plan of Treatment Not on file documented as of this encounter Visit Diagnoses Not on filedocumented in this encounter Care Teams Unix Engineer Relationship Specialty Start Date End Date Allyson Avery APRN [address] [address] PCP - General Nurse Practitioner 02/06/23 documented as of this encounter
--- OUTSIDE RECORDS SUMMARY | 2025-05-06 10:02 | XMS_ITS | Encounter Summary ---
Author Organization [employer] ([place], [place], [place], [place]) Address [address] [place] [address] Care Team Providers Care Dental Tech Name Role Phone Allyson Avery APRN Primary Care Provider Encounter Details Date Type Department Care Team (Late st Contact Info) Description 03/14/2020 Transcribed Document [facility] Family Medicine [address] [place] [address] ProviderTatiana MD [address] [place] [address] Social History Tobacco Use Types Packs/Day Years [...] 03/14/2020 9:24 EDT Electronically signed by Angel [facility] Conversion Copper Etcher Cerner at 12/20/2022 12:06 PM CDT documented in this encounter Plan of Treatment Not on file documented as of this encounter Visit Diagnoses Not on filedocumented in this encounter Care Teams Dental Tech Relationship Specialty Start Date End Date AveryHiene, GEOTHERMAL SYSTEM INSTALLER [address] [place] [address] PCP - General Nurse Practitioner 02/06/23 documented as of this encounter
--- OUTSIDE RECORDS SUMMARY | 2025-05-06 10:02 | XMS_ITS | Encounter Summary ---
Author Organization [employer] ([place], [place], [place], [place]) Address [address] [place] [address] Care Team Providers Care Cnc Laser Operator Name Role Phone Allyson Avery APRN Primary Care Provider Encounter Details Date Type Department Care Team (Late st Contact Info) Description 03/15/2020 Transcribed Document [facility] [place] Family Medicine [address] [place] [address] ProviderTatiana MD [address] [place] [address] Social History Tobacco Use Types Packs/Day Years [...] Performed On: 03/15/2020 14:55 EDT by JAKE HOLLINGSWORTH, PT Attempt to Treat Unable to Treat Due To : Patient Unavailable Inability to Treat Comment : 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 PT will follow up as time permits. JAKE HOLLINGSWORTH, PT - 03/15/2020 14:55 EDT documented in this encounter Plan of Treatment Not on file documented as of this encounter Visit Diagnoses Not on filedocumented in this encounter Care Teams Cnc Laser Operator Relationship Specialty Start Date End Date Allyson Avery, TREATING INSPECTOR [address] [place] [address] PCP - General Nurse Practitioner 02/06/23 documented as of this encounter
--- OUTSIDE RECORDS SUMMARY | 2025-05-06 10:02 | XMS_ITS | Encounter Summary ---
Author Organization [employer] ([place], [place], [place], [place]) Address [address] [place] [address] Care Team Providers Care Blanket Cutter Hand Name Role Phone Allyson Avery APRN Primary Care Provider Encounter Details Date Type Department Care Team (Late st Contact Info) Description 03/16/2020 Transcribed Document [facility] [place] [facility] [place] [address] ProviderTatiana MD [address] [place] [address] Social History Tobacco Use Types Packs/Day Years Used Date Smoking Tobacco: Never Assessed Sex and Gender Information Value Date Recorded Sex Assigned at Not on file Legal Sex Male 5:33 PM CDT Gender Identity Not on file Sexual Orientation Not on file documented as of this encounter Miscellaneous Notes * Cerner Conversion Note - Historical ProviderMD - 03/16/2020 11:03 AM CDT DATE OF [...] such that a new [employer] lead portfolio manager model 7122Q, serial #[id number], could be actively fixed to the right [...] is a [employer]onic lead model 5076, serial #[id number], had a chronic capture threshold of 0.5 V with lead impedance of 400 ohms, sensed P-wave greater than [address]. [address] [employer] pulse generator model FP6313, serial #[id number], was attached to the leads. The pocket [...] device clinic followup, and home remote monitoring. /[id number] Parish Pérez MD TCR/AQ / TCR / MODL /[id number] Electronically signed by Interface, [facility] Conversion Knife Cutter Cerner at 12/20/2022 12:11 PM CDT documented in this encounter Plan of Treatment Not on file documented as of this encounter Visit Diagnoses Not on filedocumented in this encounter Care Teams Blanket Cutter Hand Relationship Specialty Start Date End Date Allyson Avery, BUGGY OPERATOR [address] [phone] PCP - General Nurse Practitioner 02/06/23 documented as of this encounter
--- OUTSIDE RECORDS SUMMARY | 2025-05-06 10:02 | XMS_ITS | Encounter Summary ---
Author Organization [employer] ([place], [place], [place], [place]) Address [address] [place] [address] Care Team Providers Care Stockbroker Name Role Phone Allyson Avery APRN Primary Care Provider Encounter Details Date Type Department Care Team (Late st Contact Info) Description 03/17/2020 Transcribed Document [facility] [place] Family Medicine [address] [place] [address] ProviderTatiana MD [address] [place] [address] Social History Tobacco Use Types Packs/Day Years [...] these instructions at home: Medicines ??? Take pnhr-xmw-esglbdf and prescription medicines only as told by [...] and water are not available, use hand rf manager. ? Change your dressing as told by [...] your chest for several days. ??? Take tgnt-jrb-tqagbmg and prescription medicines only as told by [...] 05/13/2013 Document Revised: 07/20/2019 Document Reviewed: 07/20/2019 [employer] Interactive Patient Education ? 2020 [employer]. documented in this encounter Plan of Treatment Not on file documented as of this encounter Visit Diagnoses Not on filedocumented in this encounter Care Teams Stockbroker Relationship Specialty Start Date End Date Allyson Avery, YOKO [address] [phone] PCP - General Nurse Practitioner 02/06/23 documented as of this encounter
--- OUTSIDE RECORDS SUMMARY | 2025-05-06 10:02 | XMS_ITS | Encounter Summary ---
Author Organization [employer] ([place], [place], [place], [place]) Address [address] [place] [address] Care Team Providers Care Speech Teacher Name Role Phone Allyson Avery APRN Primary Care Provider [phone] Encounter Details Date Type Department Care Team (Late st Contact Info) Description 10/20/2024 Outside Orders [facility] Admitting [address] [place] [address] Allyson Avery APRN [address] [place] [address] [id number] Abnormal feces (Primary Dx) Social History Tobacco Use Types Packs/Day Years Used Date Smoking Tobacco: Never Assessed Family and Community Support Answer Bernard e Recorded Help with Day to Day Activities Not on file 09/19/2023 Feeling Lonely or Isolated Not on file 09/19 Educational Attainment Answer Date Roque rded Speak language other than Mexican at home Not on file 09/19/2023 Want help with school or training Not on file 09/19/2023 Substance Use Answer Date Recorded Used [...] as of this encounter Visit Diagnoses Diagnosis Abnormal feces- Primary documented in this encounter Care Teams Speech Teacher Relationship Specialty Start Date End Date Allyson Avery, HEEL SANDER RUBBER [address] [phone] PCP - General Nurse Practitioner 02/06/23 documented as of this encounter
--- OUTSIDE RECORDS SUMMARY | 2025-05-06 10:02 | XMS_ITS | Encounter Summary ---
Author Organization [employer] ([place], [place], [place], [place]) Address [address] [place] [address] Care Team Providers Care Meat Stuffer Name Role Phone Allyson Avery APRN Primary Care Provider Encounter Details Date Type Department Care Team (Late st Contact Info) Description 03/14/2020 Transcribed Document [facility] [place] Family Medicine [address] [place] [address] ProviderTatiana MD [address] [place] [address] Social History Tobacco Use Types Packs/Day Years [...] filedocumented in this encounter Care Teams Meat Stuffer Relationship Specialty Start Date End Date Allyson Avery, YOKO [address] [phone] PCP - General Nurse Practitioner 02/06/23 documented as of this encounter
--- OUTSIDE RECORDS SUMMARY | 2025-05-06 10:02 | XMS_ITS | Encounter Summary ---
Author Organization [employer] ([place], [place], [place], [place]) Address [address] [place] [address] Care Team Providers Care Pumper Head Name Role Phone Allyson Avery APRN Primary Care Provider Encounter Details Date Type Department Care Team (Late st Contact Info) Description 03/14/[address] [facility] [place] Family Medicine [address] [place] [address] ProviderTatiana MD [address] [place] [address] Social History Tobacco Use Types Packs/Day Years [...] Unaccompanied Legal Guardian : No Support Person/Patient Biomechanical Engineer : Yes Heather Daniels Rn - 03/14/2020 9:46 EDT Support Person/Pt Rep Name : Albertina Sow RN - 03/16/2020 9:18 EDT Contact Password : Heather Emerson Rn - 03/14/2020 9:46 EDT Support Person/Pt Rep Contact Information : [phone] Albertina Young RN - 03/16/2020 9:18 EDT [...] From : Patient, Daughter Primary Language : German Preferred Communication Mode : Verbal Communication Barrier : None, Other: hearing Automation Tester Needed : No Heather Daniels Rn - [...] Scale Risk Level : 25-45 Medium Risk [place] Fall Interventions : Bed in low position, [...] (Last Updated: 07/01/2019 03:33:05 EDT by Sixto Shelton, RN) Alcohol: Alcohol Use History No. (Last [...] 12/28/2015 05:03:16 EDT by Sara Mcdonald, Silvio) Height and Weight, Clinical Dosing Height Source : Stated Height Entry Format : [place] Height, Feet : 6 ft(Converted to: 183 cm, 72 Inch) Height, Inches : 0 Inch(Converted to: 0 ft 0 Inch, 0.00 cm) Clinical Height : 182.88 cm Weight Source : Bed scale Weight Entry Format : [place] Clinical Dosing Weight : 78.21 kg Weight, Pounds : 172 lb Weight, Ounces : 1 oz Body Surface Area (BSA) : 2 m2 Body Mass Index : 23.4 kg/m2 [place] Body Weight : 77 kg Heather Daniels [...] Heather Daniels Rn - 03/14/2020 9:46 EDT [place] Suicide Severity Rating Scale (C-SSRS) CSSRS Past [...] Heather Daniels Rn - 03/14/2020 9:46 EDT Electronically signed by Aruna Ortiz Conversion Paper And Pulp Mill Operator Giovananer at 12/20/2022 12:21 PM CDT documented in this encounter Plan of Treatment Not on file documented as of this encounter Visit Diagnoses Not on filedocumented in this encounter Care Teams Pumper Head Relationship Specialty Start Date End Date Allyson Avery APRN [address] [address] PCP - General Nurse Practitioner 02/06/23 documented as of this encounter
--- OUTSIDE RECORDS SUMMARY | 2025-05-06 10:02 | XMS_ITS | Encounter Summary ---
Author Organization [employer] ([place], [place], [place], [place]) Address [address] [place] [address] Care Team Providers Care Precision Honing Machine Operator Name Role Phone Allyson Avery APRN Primary Care Provider Encounter Details Date Type Department Care Team (Late st Contact Info) Description 07/01/2019 Transcribed Document [facility] [place] Family Medicine [address] [place] [address] ProviderTatiana MD [address] [place] [address] Social History Tobacco Use Types Packs/Day Years [...] and mother Emergency Contact #1 : Jake Britochie Emergency Contact #1 Emergency Contact #1 Relationship : Son Emergency Contact #2 : Merle Nikolai Emergency Contact #2 Emergency Contact #2 Relationship : Enter Doctors Name : Dr eHath Feldman Does Patient have PCP Listed? : [...] EDT Electronically signed by Aruna Ortiz Conversion Rehabilitation Construction Specialist Cerner at 12/20/2022 12:06 PM CDT documented in this encounter Plan of Treatment Not on file documented as of this encounter Visit Diagnoses Not on filedocumented in this encounter Care Teams Precision Honing Machine Operator Relationship Specialty Start Date End Date Allyson Avery, YOKO [address] [address] PCP - General Nurse Practitioner 02/06/23 documented as of this encounter
--- OUTSIDE RECORDS SUMMARY | 2025-05-06 10:02 | XMS_ITS | Encounter Summary ---
Author Organization [employer] ([place], [place], [place], [place]) Address [address] [place] [address] Care Team Providers Care Electrostatic Powder Coating Technician Name Role Phone Allyson Avery APRN Primary Care Provider Encounter Details Date Type Department Care Team (Late st Contact Info) Description 03/13/2020 Transcribed Document [facility] [place] Family Medicine [address] [place] [address] ProviderTatiana MD [address] [place] [address] Social History Tobacco Use Types Packs/Day Years [...] form. Electronically signed by Aruna Ortiz Conversion Customer Service Consultant Giovananer at 12/20/2022 12:29 PM CDT documented in this encounter Plan of Treatment Not on file documented as of this encounter Visit Diagnoses Not on filedocumented in this encounter Care Teams Electrostatic Powder Coating Technician Relationship Specialty Start Date End Date Allyson Avery, REVIEW RN [address] [place] [address] PCP - General Nurse Practitioner 02/06/23 documented as of this encounter
--- OUTSIDE RECORDS SUMMARY | 2025-05-06 10:02 | XMS_ITS | Encounter Summary ---
Author Organization [employer] ([place], [place], [place], [place]) Address [address] [place] [address] Care Team Providers Care Stud Sheep Farmer Name Role Phone Allyson Avery APRN Primary Care Provider Encounter Details Date Type Department Care Team (Late st Contact Info) Description 03/15/2020 Transcribed Document [facility] [place] Family Medicine [address] [place] [address] ProviderTatiana MD [address] [place] [address] Social History Tobacco Use Types Packs/Day Years [...] complex coronary disease. PROCEDURE IN DETAIL: RFA, 5-Iraqi sheath, 5-Iraqi Deo, Multipack, manual compression hemostasis after Mynx device. No adverse events. FINDINGS: LV pressure 148/16. Aortic pressure 150/78. No significant gradient across the aortic valve. LEFT VENTRICULOGRAM: Ventricular study demonstrates akinesia of the inferior wall with severe reduction in cardiac ejection fraction estimated to be between 30% and 35% with good movement of the anterior wall. No mitral insufficiency noted. [place] CORONARY ARTERIOGRAPHY: Left coronary artery: Left main [...] management of ischemic coronary disease and cardiomyopathy. /[id number] Heath Feldman MD JCS/AQ / JCS / MODL /[id number] documented in this encounter Plan of Treatment Not on file documented as of this encounter Visit Diagnoses Not on filedocumented in this encounter Care Teams Stud Sheep Farmer Relationship Specialty Start Date End Date Allyson Avery APRN [address] [address] PCP - General Nurse Practitioner 02/06/23 documented as of this encounter
--- OUTSIDE RECORDS SUMMARY | 2025-05-06 10:02 | XMS_ITS | Encounter Summary ---
Author Organization [employer] ([place], [place], [place], [place]) Address [address] [place] [address] Care Team Providers Care Lay Out Technician Name Role Phone Allyson Avery APRN Primary Care Provider Encounter Details Date Type Department Care Team (Late st Contact Info) Description 07/01/2019 Transcribed Document [facility] [place] [address] [place] [address] ProviderTatiana MD [address] [place] [address] Social History Tobacco Use Types Packs/Day Years [...] - 07/01/2019 0:39 EDT Tracking Group : [facility] ED Sue Anderson RN - 07/01/2019 [...] Recent Thoughts of Harming/Killing Others : No Sausage Machine Operator Needed : No Oriana Bautista RN [...] 00:41:51 EDT) Problems(Active) Allergic rhinitis (SNOMED CT :678379419 ) Name of Problem: Allergic rhinitis ; Recorder: CONSTANTIN DARDEN RN; Confirmation: Confirmed ; Classification: Patient Stated ; Code: [id number] ; Contributor System: PowerChart ; Last Updated: 12/09/2014 8:09 EDT ; Life Cycle Date: 12/09/2014 ; Life Cycle Status: Active ; Vocabulary: SNOMED CT Angina (SNOMED CT :850049195 ) Name of Problem: Angina ; Recorder: CONSTANTIN DARDEN RN; Confirmation: Confirmed ; Classification: Patient Stated ; Code: 121617381 ; Contributor System: PowerChart ; Last Updated: 12/09/2014 8:09 EDT ; Life Cycle Date: 12/09/2014 ; Life Cycle Status: Active ; Vocabulary: SNOMED CT Arthritis (SNOMED CT :9011872 ) Name of Problem: Arthritis ; Recorder: CONSTANTIN DARDEN RN; Confirmation: Confirmed ; Classification: Patient Stated ; Code: 2546051 ; Contributor System: PowerChart ; Last Updated: 12/09/2014 8:11 EDT ; Life Cycle Date: 12/09/2014 ; Life Cycle Status: Active ; Vocabulary: SNOMED CT Cardiac arrhythmia (SNOMED CT :4796469174 ) Name of Problem: Cardiac arrhythmia ; Recorder: CONSTANTIN DARDEN RN; Confirmation: Confirmed ; Classification: Patient Stated ; Code: [id number] ; Contributor System: PowerChart ; Last Updated: 12/09/2014 8:10 EDT ; Life Cycle Date: 12/09/2014 ; Life Cycle Status: Active ; Vocabulary: SNOMED CT Coronary artery disease (SNOMED CT :7505124694 ) Name of Problem: Coronary artery disease ; Recorder: CONSTANTIN DARDEN RN; Confirmation: Confirmed ; Classification: Patient Stated ; Code: 8083219384 ; Contributor System: PowerChart ; Last Updated: 12/09/2014 8:09 EDT ; Life Cycle Date: 12/09/2014 ; Life Cycle Status: Active ; Vocabulary: SNOMED CT Hard of hearing (SNOMED CT :159392445 ) Name of Problem: Hard of hearing ; Recorder: CONSTANTIN DARDEN RN; Confirmation: Confirmed ; Classification: Patient Stated ; Code: 100597537 ; Contributor System: PowerChart ; Last Updated: 12/09/2014 8:08 EDT ; Life Cycle Date: 12/09/2014 ; Life Cycle Status: Active ; Vocabulary: SNOMED CT Hyperlipidemia (SNOMED CT :02145292 ) Name of Problem: Hyperlipidemia ; Recorder: CONSTANTIN DARDEN RN; Confirmation: Confirmed ; Classification: Patient Stated ; Code: 91672467 ; Contributor System: [employer] ; Last Updated: 07/31/2017 13:39 EST ; Life Cycle Date: 12/09/2014 ; Life Cycle Status: Active ; Vocabulary: SNOMED CT Hypertension (SNOMED CT :00714556 ) Name of Problem: Hypertension ; Recorder: CONSTANTIN DARDEN RN; Confirmation: Confirmed ; Classification: Patient Stated ; Code: 70450823 ; Contributor System: [employer] ; Last Updated: 12/09/2014 8:09 EDT ; Life Cycle Date: 12/09/2014 ; Life Cycle Status: Active ; Vocabulary: SNOMED CT Myocardial infarction (SNOMED CT :57884211 ) Name of Problem: Myocardial infarction ; Recorder: CONSTANTIN DARDEN RN; Confirmation: Confirmed ; Classification: Patient Stated ; Code: 40463975 ; Contributor System: [employer] ; Last Updated: 12/09/2014 8:11 EDT ; Life Cycle Date: 12/09/2014 ; Life Cycle Status: Active ; Vocabulary: SNOMED CT Renal calculi (SNOMED CT :159539599 ) Name of Problem: Renal calculi ; Recorder: CONSTANTIN DARDEN RN; Confirmation: Confirmed ; Classification: Patient Stated ; Code: 909611659 ; Contributor System: [employer] ; Last Updated: 12/09/2014 8:12 EDT ; Life Cycle Date: 12/09/2014 ; Life Cycle Status: Active ; Vocabulary: SNOMED CT Stented coronary artery (SNOMED CT :1275068667 ) Name of Problem: Stented coronary artery ; Recorder: CONSTANTIN DARDEN RN; Confirmation: Confirmed ; Classification: Patient Stated ; Code: [id number] ; Contributor System: [employer] ; Last Updated: 12/09/2014 8:09 EDT ; Life Cycle Date: 12/09/2014 ; Life Cycle Status: Active ; Vocabulary: SNOMED CT Diagnoses(Active) Chest pain Date: 07/01/2019 ; Diagnosis Type: Reason For Visit ; Confirmation: Complaint of ; Clinical Dx: Chest pain ; Classification: Medical ; Clinical Service: Emergency medicine ; Code: PNED ; Probability: 0 ; Diagnosis Code: [id number] ED Height and Weight Height Source : Stated Height Entry Format : [place] Height, Feet : 5 ft(Converted to: 152 cm, 60 Inch) Height, Inches : 9 Inch(Converted to: 0 ft 9 Inch, 22.86 cm) Clinical Height : 175.26 cm Weight Source, ED : Critical estimated dosing weight Weight Entry Format : [place] Weight, Pounds : 182 lb Clinical Dosing Weight : 82.73 kg Body Surface Area (BSA) : 1.99 m2 Body Mass Index : 26.9 kg/m2 (HI) [place] Body Weight (IBW) : 69.73 kg Oriana Bautista, RN - 07/01/2019 0:39 EDT documented in this encounter Plan of Treatment Not on file documented as of this encounter Visit Diagnoses Not on filedocumented in this encounter Care Teams Lay Out Technician Relationship Specialty Start Date End Date Allyson Avery, YOKO [address] [address] PCP - General Nurse Practitioner 02/06/23 documented as of this encounter
--- OUTSIDE RECORDS SUMMARY | 2025-05-06 10:02 | XMS_ITS | Encounter Summary ---
Author Organization [employer] ([place], [place], [place], [place]) Address [address] [place] [address] Care Team Providers Care Manual Arts Therapy Teacher Name Role Phone Allyson Avery YOKO Primary Care Provider Encounter Details Date Type Department Care Team (Late st Contact Info) Description 03/17/2020 Transcribed Document [facility] Radiology [address] [place] [address] Jf Gallagher MD [address] [place] [address] [address] [place] [address] Social History Tobacco Use Types Packs/Day Years [...] Author: JF GALLAGHER MD-INT Subjective PCP: [facility] DOA: 03/13/2020 DOD: 03/17/2020 HPI: 79 year-old gentleman admitted to the hospital with a near syncopal episode and possibly V. tach CODE STATUS: Modified code as documented in the chart intubation and full treatment but no ACLS CONSULTS: Cardiology, [facility] WORKUP / PROCEDURES: Cardiac Cath, performed [...] the anterior wall. No mitral insufficiency noted. [place] CORONARY ARTERIOGRAPHY: Left coronary artery: Left main [...] advanced such that a new [employer] sales lead model 7122Q, serial #[id number], could be actively fixed to the right [...] is a Medtronic lead model 5076, serial #[id number], had a chronic capture threshold of 0.5 V with lead impedance of 400 ohms, sensed P-wave greater than [address]. [address] [employer] pulse generator model CP5158, serial #[id number], was attached to the leads. The pocket [...] 05:34) L 93 (MAR 16:16) 100 (MAR 16 16:00) General: Alert and oriented, No acute distress. [...] Results Review Radiology Results (Last 48 hours) [id number] -- 03/14/2020 08:12 CR Chest 1 Vw [...] on filedocumented in this encounter Care Teams Manual Arts Therapy Teacher Relationship Specialty Start Date End Date Allyson Avery, FIRE CLAIMS ADJUSTER [address] [place] [address] PCP - General Nurse Practitioner 02/06/23 documented as of this encounter
--- OUTSIDE RECORDS SUMMARY | 2025-05-06 10:02 | XMS_ITS | Encounter Summary ---
Author Organization [employer] ([place], [place], [place], [place]) Address [address] [place] [address] Care Team Providers Care Auto Research Engineer Name Role Phone Avery, Allyson YOKO Primary Care Provider Encounter Details Date Type Department Care Team (Late st Contact Info) Description 03/13/2020 Transcribed Document [facility] [place] [address] [place] [address] ProviderTatiana MD [address] [place] [address] Social History Tobacco Use Types Packs/Day Years [...] EDT Height Source Stated Height Entry Format [place] Height/Length, GABONESE (ft) 6 ft Height/Length GABONESE 0 Inch CLINICALHEIGHT 182.88 cm [place] Body Weight 76.59 kg Weight Source, ED Critical estimated dosing weight Weight Entry Format [place] Weight Lao lb 175 lb CLINICALWEIGHT 79.55 kg Body [...] Triage: ED C-SSRS: ED Clinical Reconciliation: ED diving coach: Saline Lock Insert: . Electrocardiogram: Time 03/13/2020 21:42:00, rate 55, No ST changes, no ectopy, normal IL & QRS intervals, EP Interp, The Rhythm [...] % 26.8 % Lymph # 1.30 x10(3)/uL Phillips % 10.5 % HI Phillips # 0.51 K/uL Eos % 4.1 % Eos # 0.20 x10(3)/uL Baso % 1.2 % Baso # 0.06 x10(3)/uL Slide Review No IG# 0.02 x10(3)/uL IG% 0.40 % Urine Type. U CleanCatch Urine Color Yellow Urine Appearance Clear Urine Specific [place] 1.021 Urine pH Dipstick 6.5 Urine Leukocyte Esterase Negative Urine Nitrite Negative Urine Protein Dipstick Negative Urine Glucose Dipstick Negative Urine Ketones Dipstick Negative Urine Urobilinogen Dipstick 0.2 EU/dL Urine Bilirubin Dipstick Negative Urine Blood Dipstick Negative Ur Mucous Trace . Radiology results: Radiology Results (Last 48 hours) [id number] -- 03/13/2020 21:29 CT Head WO (03/13/2020 [...] - 03/13/2020 22:40:00 , ROMAN NGUYEN MD-INT, [facility] Hospitalist.. Plan Condition: Stable. Orders: Launch Orders Admit/Transfer/Discharge: Admit to Inpatient (Order): Start: 03/13/2020 22:50 EDT, Admit reason: near syncope/TIA/elevated troponin,palpitations, Estimated length of stay 2 Midnights or LONGER, Level of Care: Med-Surg with telemetry, Admitting: ROMAN NGUYEN MD-INT. Notes: I certify that the MLP/REGASIFICATION PLANT OPERATOR performed the services as delegated. , Discussed with Dr. Abel and agrees with plan of care.. documented in this encounter Plan of Treatment Not on file documented as of this encounter Visit Diagnoses Not on filedocumented in this encounter Care Teams Auto Research Engineer Relationship Specialty Start Date End Date Allyson Avery APRN [address] [place] [id number] PCP - General Nurse Practitioner 02/06/23 documented as of this encounter
--- OUTSIDE RECORDS SUMMARY | 2025-05-06 10:02 | XMS_ITS | Encounter Summary ---
Author Organization [employer] ([place], [place], [place], [place]) Address [address] [place] [address] Care Team Providers Care Ladle Repairman Name Role Phone Allyson Avery APRN Primary Care Provider [phone] Encounter Details Date Type Department Care Team (Late st Contact Info) Description 03/17/2020 Transcribed Document [facility] [place] Family Medicine [address] [place] [address] ProviderTatiana MD [address] [place] [address] Social History Tobacco Use Types Packs/Day Years [...] 26 (MAR 16 18:00) 73 (MAR 16 15:) MAP 27 (MAR 16 18:00) 27 (MAR 16 18:00) 88 (MAR 16 15:00) SpO2 95 (MAR 17 05:34) L 93 (MAR 16 11:16) 100 (MAR 16 16:00) Clinical Weight CLINICALWEIGHT: 78.21 kg (03/14/20 08:11:00) Routine Weight Calculation: 78.69 kg (03/15/20 04:00:00) Routine Weight Entry Format: [place] (03/15/20 04:00:00) Routine Weight Source: Bed scale (03/15/20 04:00:00) Routine Weight, Ounces: 2 oz (03/15/20 04:00:00) Routine Weight, Pounds: 173 lb (03/15/20 04:00:00) [place] Body Weight: 77 kg (03/14/20 08:11:00) [...] 13) Na 139 (MAR 16) 139 (MAR 15) 138 (MAR 14) 140 (MAR 13) K 3.9 (MAR 16) 4.1 (MAR 15) 4.5 (MAR 14) 5.0 (MAR 13) Cl 106 (MAR 16) 105 (MAR 15) 104 (MAR 14) 104 (MAR 13) CO2 28 (MAR 16) 28 (MAR 15) 29 (MAR 14) 30 (MAR 13) BUN 20 (MAR 16) H 24 (MAR 15) H 23 (MAR [...] echocardiogram revealed new wall motion abnormalities for LHC today SSS s/p dual chamber PPM HTN HLP Ok to discharge from a cardiac perspective FU one week in clinic for wound check documented in this encounter Plan of Treatment Not on file documented as of this encounter Visit Diagnoses Not on filedocumented in this encounter Care Teams Ladle Repairman Relationship Specialty Start Date End Date Allyson Avery, FEED MANAGEMENT ADVISOR [address] [place] [address] PCP - General Nurse Practitioner 02/06/23 documented as of this encounter
--- OUTSIDE RECORDS SUMMARY | 2025-05-06 10:02 | XMS_ITS | Encounter Summary ---
Author Organization [employer] ([place], [place], [place], [place]) Address [address] [place] [address] Care Team Providers Care Resource Agent Name Role Phone Allyson Avery APRN Primary Care Provider Encounter Details Date Type Department Care Team (Late st Contact Info) Description 03/16/2020 Transcribed Document [facility] [place] Family Medicine [address] [place] [address] ProviderTatiana MD [address] [place] [address] Social History Tobacco Use Types Packs/Day Years [...] None Persons Providing Information : Patient, [facility]: [facility] Home Equipment Therapy, PT : Bar, graottoniel, Cane (Comment: next to toilet [LEE JOLLEY PT - 03/16/2020 14:11 EDT] ) Cane [...] ROM : Impaired Upper Extremity Comment : BERNIE in a sling s/p AICD placement. LEE [...] Stand Device : None, Belt, gait, Other: FOUNDRY WORKER APPRENTICE of 1 Stand to Sit Device : None, Belt, gait, Other: FOUNDRY WORKER APPRENTICE of 1 Sit to Supine Devices : Rails, Other: Asst to get BLE back into bed. Functional MobilityComment : Pt sitting EOB with supervision. BERNIE in a sling s/p AICD. He stood and took 4-5 small lateral steps to his R with min FOUNDRY WORKER APPRENTICE of 1. Pt still a little sedated [...] Basic Command Assessment : Pt a little [place] and a little slow to respond to [...] LEE JOLLEY, PT - 03/16/2020 14:11 EDT Landscape Designer Goals Mobility/Bed Mobility LTG PT Grid Goal [...] EDT Goal Status : Intial Goal LEE JOLLEY, PT - 03/16/2020 14:11 EDT Treatment Note [...] LEE JOLLEY, PT - 03/16/2020 14:11 EDT [place] PT Charges PT Eval Low Complexity : 1 LEE JOLLEY, PT - 03/16/2020 14:11 EDT Electronically signed by Angel [facility] Conversion Magistrate Cerner at 12/20/2022 12:16 PM CDT documented in this encounter Plan of Treatment Not on file documented as of this encounter Visit Diagnoses Not on filedocumented in this encounter Care Teams Resource Agent Relationship Specialty Start Date End Date Allyson Avery APRN [address] [address] PCP - General Nurse Practitioner 02/06/23 documented as of this encounter
--- OUTSIDE RECORDS SUMMARY | 2025-05-06 10:02 | XMS_ITS | Encounter Summary ---
Author Organization [employer] ([place], [place], [place], [place]) Address [address] [place] [address] Care Team Providers Care Plant Operator Helper Name Role Phone Allyson Avery APRN Primary Care Provider Encounter Details Date Type Department Care Team (Late st Contact Info) Description 07/01/2019 Transcribed Document [facility] [place] Family Medicine [address] [place] [address] ProviderTatiana MD [address] [place] [address] Social History Tobacco Use Types Packs/Day Years [...] Son Legal Guardian : No Support Person/Patient Hanger Off : Yes Support Person/Pt Rep Name : Perlita Fitzgerald Contact Password : Melissa Support Person/Pt Rep Contact Information : [phone] Want Family/Rep/Phys Notified of Admit : No Emergency Contact #1 : Jake Menchaca Emergency Contact #1 Emergency Contact #1 Relationship : Son Emergency Contact #2 : Merle Nikolai Emergency Contact #2 Emergency Contact #2 Relationship : Chief Complaint : patient with complaints of chest pain that started around 2200, states NTG x1 and had relief of pain. Information Obtained From : Patient Primary Language : Serbian Preferred Communication Mode : Verbal Communication Barrier [...] IV Access : Yes Velez Gait/Transferring : Normal, bedrest, immobile Velez Mental Status : Oriented to own ability Velez Fall Risk Score : 35 VELEZ Fall Scale Risk Level : 25-45 Medium Risk [place] Fall Interventions : Adequate lighting, Assistive devices [...] Source : Stated Height Entry Format : [place] Height, Feet : 5 ft(Converted to: 152 cm, 60 Inch) Height, Inches : 9 Inch(Converted to: 0 ft 9 Inch, 22.86 cm) Clinical Height : 175.26 cm Weight Source : Stated [place] Body Weight : 70 kg Sixto Shelton RN - 07/01/2019 3:26 EDT Estimated Weight Type of Weight Measurement Est : [place] Weight, est lb : 182 lb(Converted to: [...] Any Spiritual/Cultural Needs or Requests : No Synagogue Preference : [employer] Sixto Shelton RN - 07/01/2019 3:26 EDT Valuables and Belongings Valuables and Belongings : Clothing Clothing : Common streetwear Clothing Disposition : Bedside Sixto Shelton RN - 07/01/2019 3:26 EDT documented in this encounter Plan of Treatment Not on file documented as of this encounter Visit Diagnoses Not on filedocumented in this encounter Care Teams Plant Operator Helper Relationship Specialty Start Date End Date Allyson Avery APRN [address] [phone] PCP - General Nurse Practitioner 02/06/23 documented as of this encounter
--- OUTSIDE RECORDS SUMMARY | 2025-05-06 10:02 | XMS_ITS | Encounter Summary ---
Author Organization [employer] ([place], [place], [place], [place]) Address [address] [place] [address] Care Team Providers Care Development And Planning Engineer Name Role Phone Bennie Allyson BABCOCK Primary Care Provider Encounter Details Date Type Department Care Team (Late st Contact Info) Description 03/13/2020 Transcribed Document [facility] [place] Family Medicine [address] [place] [address] ProviderTatiana MD [address] [place] [address] Social History Tobacco Use Types Packs/Day Years Used Date Smoking Tobacco: Never Assessed Sex and Gender Information Value Date Recorded Sex Assigned at Not on file Legal Sex Male 5:33 PM CDT Gender Identity Not on file Sexual Orientation Not on file documented as of this encounter Miscellaneous Notes * Cerner Conversion Note - Historical ProviderMD - 03/13/2020 9:29 PM CDT ED [...] : None, Other: hearing Primary Language : Moroccan Any Spiritual/Cultural Needs or Requests : No [...] Cardiovascular ASMT, ED Cardiovascular Assessment WDL : WDL with exceptions Cardiovascular Symptoms : Other: near syncope Chest Pain : No Kimi Mason RN - 03/13/2020 21:52 EDT Respiratory Respiratory Assessment WDL : WD Kimi Mason RN - 03/13/2020 21:52 EDT Gastrointestinal ED Gastrointestinal Assessment WDL : WDL Kimi Mason RN - 03/13/2020 21:52 EDT Genitourinary Assessment, ED Genitourinary Assessment WDL : [facility] Kmii Mason RN - 03/13/2020 21:52 EDT Neurologic ASMT, ED Neurologic Assessment WDL : WD with exceptions Neurological Symptoms : Dizziness Kimi Mason RN - 03/13/2020 21:52 EDT Electronically signed by Angel [facility] Conversion Oil Well Services Field Supervisor Cerner at 12/20/2022 12:07 PM CDT documented in this encounter Plan of Treatment Not on file documented as of this encounter Visit Diagnoses Not on filedocumented in this encounter Care Teams Development And Planning Engineer Relationship Specialty Start Date End Date Allyson Avery, YOKO [address] [phone] PCP - General Nurse Practitioner 02/06/23 documented as of this encounter
--- OUTSIDE RECORDS SUMMARY | 2025-05-06 10:02 | XMS_ITS | Encounter Summary ---
Author Organization [employer] ([place], [place], [place], [place]) Address [address] [place] [address] Care Team Providers Care Cooker Cleaner Name Role Phone Allyson Avery APRN Primary Care Provider Encounter Details Date Type Department Care Team (Late st Contact Info) Description 03/17/2020 Transcribed Document [facility] [place] Family Medicine [address] [place] [address] ProviderTatiana MD [address] [place] [address] Social History Tobacco Use Types Packs/Day Years [...] Performed On: 03/17/2020 13:02 EDT by Derrek Newman, Student-Physical Therapist Discharge Summary Discharge Summary Provider Notified : Nursing Reason for Discharge : Discharged from hospital Discharged to, Therapy : Home, independently Discharge Equipment, PT : None Derrek Newman, Student-Physical Therapist - 03/17/2020 13:02 EDT Discharge [...] ~5 lateral steps with Min A and CURRICULUM AND INSTRUCTION DIRECTOR. Patient did not meet any of his intermediate teacher goals due to assistance required with all functional activities and impaired endurance tolerance. PT has reviewed and agrees with note. DERREK HEAD, PT - 03/17/2020 14:01 EDT Air Compressor Mechanic Goals Mobility/Bed Mobility LTG PT Grid Goal [...] - 03/17/2020 13:06 EDT Electronically signed by Nick Ortiz Conversion Shotgun Shell Loading Machine Operator Cerner at 12/20/2022 12:26 PM CDT documented in this encounter Plan of Treatment Not on file documented as of this encounter Visit Diagnoses Not on filedocumented in this encounter Care Teams Cooker Cleaner Relationship Specialty Start Date End Date Allyson Avrey APRN [address] [address] PCP - General Nurse Practitioner 02/06/23 documented as of this encounter
--- OUTSIDE RECORDS SUMMARY | 2025-05-06 10:02 | XMS_ITS | Encounter Summary ---
Author Organization [employer] ([place], [place], [place], [place]) Address [address] [place] [address] Care Team Providers Care Replenishment Merchandising Associate Name Role Phone Allyson Avery APRN Primary Care Provider Encounter Details Date Type Department Care Team (Late st Contact Info) Description 03/16/2020 Transcribed Document [facility] [place] Family Medicine [address] [place] [address] ProviderTatiana MD [address] [place] [address] Social History Tobacco Use Types Packs/Day Years [...] On: 03/16/2020 15:01 EDT by IGNACIA LYONS, RN-Gift Consultant Initial Assessment I Previously Documented Living Environment [...] Son Enter Doctors Name : Allyson Avery PSYCHOSOCIAL REHABILITATION COUNSELOR Does Patient have PCP Listed? : Yes Legal Guardian : No Date Hospital Obtained Advance Directive : 03/14/2020 EDT Is Guardianship Needed : No IGNCAIA LYONS, RN-Gift Consultant - 03/16/2020 15:01 EDT Initial Assessment II Sensory and Motor Deficits : None Current Home Treatments and Equipment : None Services and Community Resources : Home Health, Other: None IGNACIA LYONS, RN-Gift Consultant - 03/16/2020 15:01 EDT Discharge Needs I Anticipated Discharge Date : 03/17/2020 EDT Anticipated Discharge To, CM : Home with family care Current Home Treatment/Equipment : Current Home Treatment/Equipment Current Home Treatments and Equipment: None (03/15/20 15:20:00) Post Acute/Home Treatments : None Documentation Status Complete : Yes IGNACIA LYONS RN-Gift Consultant - 03/16/2020 15:01 EDT Discharge Needs II Professional Skilled Services : Professional Skilled Services Services and Community Resources: Home Health (03/15/20 15:20:00) Services and Community Resources : Home Health Needs Assistance with Transportation : No Discharge Options Discussed with Patient : Discharge transportation, DME, Home Health IGNACIA LYONS, RN-Gift Consultant - 03/16/2020 15:01 EDT Narrative Note Narrative [...] 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 His daughter Jesika is also involved in his care [phone]. Patient's PCP is MARCO Duncan. 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 No prior rehab stay, home health, oxygen or DME. Patient's family will transport on discharge. DCP: Anticipate patient will discharge home with family. CM will follow for any needed referrals. CINDY GOMES, RN-Gift Consultant - 03/15/20 15:28:05 IGNACIA LYONS, RN-Gift Consultant - 03/16/2020 15:01 EDT documented in this encounter Plan of Treatment Not on file documented as of this encounter Visit Diagnoses Not on filedocumented in this encounter Care Teams Replenishment Merchandising Associate Relationship Specialty Start Date End Date Allyson Avery, YOKO [address] [address] PCP - General Nurse Practitioner 02/06/23 documented as of this encounter
--- OUTSIDE RECORDS SUMMARY | 2025-05-06 10:02 | XMS_ITS | Encounter Summary ---
Author Organization [employer] ([place], [place], [place], [place]) Address [address] [place] [address] Care Team Providers Care Immigration Services Officer Name Role Phone Allyson Avery APRN Primary Care Provider Encounter Details Date Type Department Care Team (Late st Contact Info) Description 03/14/2020 Transcribed Document [facility] [place] Family Medicine [address] [place] [address] ProviderTatiana MD [address] [place] [address] Social History Tobacco Use Types Packs/Day Years Used Date Smoking Tobacco: Never Assessed Sex and Gender Information Value Date Recorded Sex Assigned at Not on file Legal Sex Male 5:33 PM CDT Gender Identity Not on file Sexual Orientation Not on file documented as of this encounter Miscellaneous Notes * Cerner Conversion Note - Tatiana ProviderMD - 03/14/2020 12:07 AM CDT ED Event Note Entered On: 03/14/2020 0:07 EDT Performed On: 03/14/2020 0:07 EDT by Kimi Mason RN ED Event Note ED Description of Event : pt given dinner tray, pt changed onto hospital bed Kimi Mason RN - 03/14/2020 0:07 EDT documented in this encounter Plan of Treatment Not on file documented as of this encounter Visit Diagnoses Not on filedocumented in this encounter Care Teams Immigration Services Officer Relationship Specialty Start Date End Date Allyson Avery, ADMISSIONS CLERK [address] [address] PCP - General Nurse Practitioner 02/06/23 documented as of this encounter
--- OUTSIDE RECORDS SUMMARY | 2025-05-06 10:02 | XMS_ITS | Encounter Summary ---
Author Organization [employer] ([place], [place], [place], [place]) Address [address] [place] [address] Care Team Providers Care Branch Controller Name Role Phone Allyson Avery APRN Primary Care Provider Encounter Details Date Type Department Care Team (Late st Contact Info) Description 07/01/2019 Transcribed Document [facility] [place] [address] [place] [address] ProviderTatiana MD [address] [place] [address] Social History Tobacco Use Types Packs/Day Years [...] ADMISSION: 07/01/2019 PRIMARY CARE: Allyson Avery APRN, [place], [place]. REFERRING PHSYCIAN: Dr. Baljinder Joseph, [facility] , 1940. CURRENT COMPLAINT: Chest pain, sweating. 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 Chest x-ray [...] doses are different than noted in his [facility] MAR. ALLERGIES: None. TOBACCO USE: None. ALCOHOL USE: None. OTHER HEALTH PROBLEMS: Include, idiopathic hypothyroidism, hyperlipidemia, history of nephrolithiasis, poor dentition and hearing loss. CHILDHOOD ILLNESSES: No rheumatic fever, diphtheria, tuberculosis, polio or jaundice. SURGICAL HISTORY: As noted above. FAMILY HISTORY: Hypertension, diabetes. SOCIAL HISTORY: Born and reared in [facility], finished high school. He did not [...] evaluation by Dr. Feldman or his associates. /[id number] Eleazar Sullivan MD Timi MGE/AQ / MGE / MODL CC1: Ms [place], [place] CC2: Dr. Heath Feldman Electronically signed by [facility], [facility] Conversion Geriatric Case Manager Cerner at 12/20/2022 12:25 PM CDT documented in this encounter Plan of Treatment Not on file documented as of this encounter Visit Diagnoses Not on filedocumented in this encounter Care Teams Branch Controller Relationship Specialty Start Date End Date Allyson Avery APRN [address] [address] PCP - General Nurse Practitioner 02/06/23 documented as of this encounter
--- OUTSIDE RECORDS SUMMARY | 2025-05-06 10:02 | XMS_ITS | Encounter Summary ---
Author Organization [employer] ([place], [place], [place], [place]) Address [address] [place] [address] Care Team Providers Care Global Marketing Operations Manager Name Role Phone Allyson Avery APRN Primary Care Provider Encounter Details Date Type Department Care Team (Late st Contact Info) Description 07/01/2019 Transcribed Document [facility] [place] [address] [place] [address] ProviderTatiana MD [address] [place] [address] Social History Tobacco Use Types Packs/Day Years [...] On: 07/01/2019 3:24 EDT by Oriana Bautista, personal banking advisor Process Patient Disposition : Admit/Observe Personal Belongings With Patient : Yes Patient Education Completed : Yes Teaching Evaluation : Verbalizes understanding IV Discontinued : No Nursing Documentation Completed : Yes Oriana Bautista, RN - 07/01/2019 3:24 EDT Admission, ED `Nurse Report (Hand Off) : Called Accompanied By, Discharge : Daughter, Son Mode Of Departure : Stretcher Oriana Bautista RN - 07/01/2019 3:24 EDT documented in this encounter Plan of Treatment Not on file documented as of this encounter Visit Diagnoses Not on filedocumented in this encounter Care Teams Global Marketing Operations Manager Relationship Specialty Start Date End Date Allyson Avery, RETAIL MERCHANDISING SPECIALIST [address] [address] PCP - General Nurse Practitioner 02/06/23 documented as of this encounter
--- OUTSIDE RECORDS SUMMARY | 2025-05-06 10:02 | XMS_ITS | Encounter Summary ---
Author Organization [employer] ([place], [place], [place], [place]) Address [address] [place] [address] Care Team Providers Care Best Second Jobs Name Role Phone Allyson Avery APRN Primary Care Provider Encounter Details Date Type Department Care Team (Late st Contact Info) Description 03/14/2020 Transcribed Document [facility] [place] [address] [place] [address] ProviderTatiana MD [address] [place] [address] Social History Tobacco Use Types Packs/Day Years [...] On: 03/14/2020 8:00 EDT by Asuncion Erwin [facility] Phone Call for Consults Consult Phone Call/Page Attempt : First call Consult Reason : CAD Vtach Physician Requesting Consult : ROMAN NGUYEN MD-INT Physician Requested for Consult : JADA HOLBROOK MD-CAR Provider Service Notified Name : Cardiology Physician Covering for Consult : JOSHUA CHAPMAN APRN Date and Time Call Returned : 03/14/2020 11:55 EDT Asuncion Erwin [facility] - 03/14/2020 11:56 EDT Electronically signed by Angel, [facility] Conversion Manual Writer Cerner at 12/20/2022 12:32 PM CDT documented in this encounter Plan of Treatment Not on file documented as of this encounter Visit Diagnoses Not on filedocumented in this encounter Care Teams Best Second Jobs Relationship Specialty Start Date End Date AveryHien lae, UTILIZATION MANAGEMENT MANAGER [address] [id number] PCP - General Nurse Practitioner 02/06/23 documented as of this encounter
--- OUTSIDE RECORDS SUMMARY | 2025-05-06 10:02 | XMS_ITS | Encounter Summary ---
Author Organization [employer] ([place], [place], [place], [place]) Address [address] [place] [address] Care Team Providers Care Sound Editor Name Role Phone Allyson Avery APRN Primary Care Provider [phone] Encounter Details Date Type Department Care Team (Late st Contact Info) Description 03/15/2020 Transcribed Document [facility] [place] Family Medicine [address] [place] [address] ProviderTatiana MD [address] [place] [address] Social History Tobacco Use Types Packs/Day Years [...] Diagnoses: None Author: JOSHUA CHAPMAN APRN [facility] CARDIOLOGY PROGRESS NOTE: DIAGNOSIS: 1. VT [...] DBP 79 (MAR 15 08:38) 62 (MAR 14:14) 79 (MAR 15 07:41) MAP 97 (MAR 15 07:41) 81 (MAR 14 18:14) 97 (MAR 15 07:41) SpO2 98 (MAR 15 06:00) 94 (MAR 14:14) 100 (MAR 14 15:15) Clinical Weight CLINICALWEIGHT: 78.21 kg (03/14/20 08:11:00) Routine Weight Calculation: 78.69 kg (03/15/20 04:00:00) Routine Weight Entry Format: [place] (03/15/20 04:00:00) Routine Weight Source: Bed scale (03/15/20 04:00:00) Routine Weight, Ounces: 2 oz (03/15/20 04:00:00) Routine Weight, Pounds: 173 lb (03/15/20 04:00:00) [place] Body Weight: 77 kg (03/14/20 08:11:00) Intake [...] 14) 169 (MAR 13) Na 139 (MAR 15) [...] echocardiogram revealed new wall motion abnormalities for [facility] today SSS s/p dual chamber PPM HTN HLP Length of time spent facilitating, coordinating providing care greater than 35 minutes documented in this encounter Plan of Treatment Not on file documented as of this encounter Visit Diagnoses Not on filedocumented in this encounter Care Teams Sound Editor Relationship Specialty Start Date End Date Allyson Avery, COM WRITER [address] [address] PCP - General Nurse Practitioner 02/06/23 documented as of this encounter
--- OUTSIDE RECORDS SUMMARY | 2025-05-06 10:02 | XMS_ITS | Encounter Summary ---
Author Organization [employer] ([place], [place], [place], [place]) Address [address] [place] [address] Care Team Providers Care Placement Assistant Name Role Phone Allyson Avery APRN Primary Care Provider [phone] Encounter Details Date Type Department Care Team (Late st Contact Info) Description 03/14/2020 Transcribed Document [facility] [place] Family Medicine [address] [place] [address] ProviderTatiana MD [address] [place] [address] Social History Tobacco Use Types Packs/Day Years [...] need repeat ischemic workup (last ischemic study 2017) Thank you for this consultation we will [...] I Ultra: 0.078 ng/mL High (03/14/20 04:42:00) documented in this encounter Plan of Treatment Not on file documented as of this encounter Visit Diagnoses Not on filedocumented in this encounter Care Teams Placement Assistant Relationship Specialty Start Date End Date Allyson Avery APRN [address] [address] PCP - General Nurse Practitioner 02/06/23 documented as of this encounter
--- OUTSIDE RECORDS SUMMARY | 2025-05-06 10:02 | XMS_ITS | Encounter Summary ---
Author Organization [facility] ([place], [place], [place], [place]) Address [address] [place] [address] Care Team Providers Care Rock Crushing Machine Operator Name Role Phone Allyson Avery APRN Primary Care Provider Encounter Details Date Type Department Care Team (Late st Contact Info) Description 03/14/2020 Transcribed Document [facility] [place] Family [place] [address] [place] [address] ProviderTatiana MD [address] [place] [address] Social History Tobacco Use Types Packs/Day Years [...] filedocumented in this encounter Care Teams Rock Crushing Machine Operator Relationship Specialty Start Date End Date Allyson Avery APRN [address] [address] PCP - General Nurse Practitioner 02/06/23 documented as of this encounter
--- OUTSIDE RECORDS SUMMARY | 2025-05-06 10:02 | XMS_ITS | Encounter Summary ---
Author Organization [email or web address] ([place], [place], [place], [place]) Address [address] [place] [address] Care Team Providers Care Senior Living Advisor Name Role Phone Allyson Avery APRN Primary Care Provider [phone] Encounter Details Date Type Department Care Team (Late st Contact Info) Description 03/13/2020 Transcribed Document [facility] [place] [address] [place] [address] ProviderTatiana MD [address] [place] [address] Social History Tobacco Use Types Packs/Day Years Used Date Smoking Tobacco: Never Assessed Sex and Gender Information Value Date Recorded Sex Assigned at Not on file Legal Sex Male 5:33 PM CDT Gender Identity Not on file Sexual Orientation Not on file documented as of this encounter Miscellaneous Notes * Cerner Conversion Note - Tatiana ProviderMD - 03/13/2020 11:27 PM CDT DATE OF ADMISSION: 03/13/2020 REFERRING PHYSICIAN: GUANACO GUILLERMO MD PRIMARY CARE PHYSICIAN: Ms. Allyson Avery APRN, [place], [place]. [facility] , 1940. CURRENT COMPLAINT: Spell of brief [...] magnesium level. Review these issues with his ship boat or barge mate. Anticipate possible repeat cardiac catheterization. 2. Cardiac biomarker abnormality. The minimal abnormality of troponin may represent chronic myocardial injury versus a type 2 infarction associated with demand. The former is suggested by previous elevation with non-specific symptoms. 3. CAD 4. Hypertension 5. Hypothyroidism 6. Diabetes mellitus 7. other problems identified above /[id number] Mathieulisa Capellan MD MGE/AQ / MGE / MODL CC: Ms Bennie APRNFont[place], [place], Dr. Heath Feldman Electronically signed by [facility], [facility] Conversion Automatic Mold Sander Cerner at 12/20/2022 12:26 PM CDT documented in this encounter Plan of Treatment Not on file documented as of this encounter Visit Diagnoses Not on filedocumented in this encounter Care Teams Senior Living Advisor Relationship Specialty Start Date End Date Allyson Avery APRN [address] [address] PCP - General Nurse Practitioner 02/06/23 documented as of this encounter
--- OUTSIDE RECORDS SUMMARY | 2025-05-06 10:02 | XMS_ITS | Encounter Summary ---
Author Organization [employer] ([place], [place], [place], [place]) Address [address] [place] [address] Care Team Providers Care White Metal Corrosion Proofer Name Role Phone Allyson Avery APRN Primary Care Provider Encounter Details Date Type Department Care Team (Late st Contact Info) Description 03/15/2020 Transcribed Document [facility] [place] [address] [place] [address] ProviderTatiana MD [address] [place] [address] Social History Tobacco Use Types Packs/Day Years [...] Insurance 1 Health Plan: MEDICARE Policy Number: [id number] Authorization Number: Insurance 2 Health Plan: AARP N Policy Number: [id number] Authorization Number: Insurance Primary Name : MEDICARE Policy Number: [id number] AARP N Policy Number: [id number] Historical Authorization Comments-Primary : No Authorization Comments Found TERRI JIMENEZ Rn-Utilization Review - 03/15/2020 10:19 EDT Electronically signed by Angel [facility] Conversion Residential Mental Health Worker Cerner at 12/20/2022 12:13 PM CDT documented in this encounter Plan of Treatment Not on file documented as of this encounter Visit Diagnoses Not on filedocumented in this encounter Care Teams White Metal Corrosion Proofer Relationship Specialty Start Date End Date Bennie Allyson, MACHINE PACKAGE SEALER [address] [place] [address] PCP - General Nurse Practitioner 02/06/23 documented as of this encounter
--- OUTSIDE RECORDS SUMMARY | 2025-05-06 10:02 | XMS_ITS | Encounter Summary ---
Author Organization [employer] ([place], [place], [place], [place]) Address [address] [place] [address] Care Team Providers Care Vinegar Maker Name Role Phone Allyson Avery YOKO Primary Care Provider Encounter Details Date Type Department Care Team (Late st Contact Info) Description 07/01/2019 Transcribed Document [facility] Radiology [address] [place] [address] Jf Gallagher MD [address] [place] [address] [address] [place] [address] Social History Tobacco Use Types Packs/Day Years [...] Subjective PCP: [facility] DOA: 07/01/2019 DOD: HPI: Patient admitted with chest pain, elevated troponin and 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 CODE STATUS: Full code CONSULTS: [facility] cardiology WORKUP / PROCEDURES: HOSPITAL FOLLOWUP: 07/01/2019 [...] 73 (JUL 01 03:15) MAP 86 (JUL 01 09:30) 67 (JUL 01 03:24) 88 (JUL 01 02:00) SpO2 L 92 (JUL 01 06:15) L 92 (JUL 01 03:15) 96 (JUL 01 00:29) Results Review Radiology Results (Last 48 hours) [id number] -- 07/01/2019 01:59 CR Chest 1 Vw [...] pain with elevated troponin, likely non-ST elevation [place]. History of coronary artery disease and CABG Sick sinus syndrome and history of permanent pacemaker Essential hypertension Hyper lipidemia Hyperuricemia PLAN Continue current treatment. Home medications reviewed and reconciled. Cardiology input appreciated and follow-up instructions. Monitor baseline labs. documented in this encounter Plan of Treatment Not on file documented as of this encounter Visit Diagnoses Not on filedocumented in this encounter Care Teams Vinegar Maker Relationship Specialty Start Date End Date Allyson Avery, YOKO [address] [place] [address] PCP - General Nurse Practitioner 02/06/23 documented as of this encounter
--- OUTSIDE RECORDS SUMMARY | 2025-05-06 10:02 | XMS_ITS | Encounter Summary ---
Author Organization [employer] ([place], [place], [place], [place]) Address [address] [place] [address] Care Team Providers Care Car Builder Name Role Phone Allyson Avery YOKO Primary Care Provider Encounter Details Date Type Department Care Team (Late st Contact Info) Description 03/14/2020 Transcribed Document [facility] Radiology [address] [place] [address] Jf Gallagher MD [address] [place] [address] [address] [place] [address] Social History Tobacco Use Types Packs/Day Years [...] Author: JF GALLAGHER MD-INT Subjective PCP: [facility] DOA: 03/13/2020 DOD: HPI: 79 year-old gentleman admitted to the hospital with a near syncopal episode and possibly V. tach CODE STATUS: Modified code as documented in the chart intubation and full treatment but no ACLS CONSULTS: Cardiology, Parachute clinic WORKUP / PROCEDURES: HOSPITAL FOLLOWUP: 03/14/2020 [...] Temp 98.2 (MAR 14 06:00) 97.6 (MAR 13 21:38) 98.1 (MAR 14 00:00) Mon HR 60 (MAR 14:24) 58 (MAR 13 22:30) 62 (MAR 13 22:00) Periph HR 70 (MAR 13:38) 70 (MAR 13 21:38) 70 (MAR 13:38) Resp Rate H 21 (MAR 14:) 15 (MAR 14 02:00) H 26 (MAR 13 23:) SBP 99 (MAR 14) 99 (MAR 14) H 155 (MAR 13:38) DBP L 58 (MAR 14:) L 58 (MAR 14:) 77 (MAR 13:) MAP 73 (MAR 14) 73 (MAR 14) 100 (MAR 14 00:00) SpO2 100 (MAR 14:) 98 (MAR 14 02:00) 100 (MAR 13:) [...] Results Review Radiology Results (Last 48 hours) [id number] -- 03/14/2020 08:12 CT Head WO (03/13/2020 [...] on filedocumented in this encounter Care Teams Car Builder Relationship Specialty Start Date End Date Allyson Avery, [employer] [address] [address] PCP - General Nurse Practitioner 02/06/23 documented as of this encounter
--- OUTSIDE RECORDS SUMMARY | 2025-05-06 10:02 | XMS_ITS | Encounter Summary ---
Author Organization [employer] ([place], [place], [place], [place]) Address [address] [place] [address] Care Team Providers Care Aluminum Welder Name Role Phone Allyson Avery APRN Primary Care Provider Encounter Details Date Type Department Care Team (Late st Contact Info) Description 03/15/2020 Transcribed Document [facility] Family Medicine [address] [place] [address] ProviderTatiana MD [address] [place] [address] Social History Tobacco Use Types Packs/Day Years [...] if there is an intervention. PAYTON GONZALEZ OTR/L - 03/15/2020 14:40 EDT documented in this encounter Plan of Treatment Not on file documented as of this encounter Visit Diagnoses Not on filedocumented in this encounter Care Teams Aluminum Welder Relationship Specialty Start Date End Date Allyson Avery, TEACHER EMOTIONALLY IMPAIRED [address] [place] [address] PCP - General Nurse Practitioner 02/06/23 documented as of this encounter
--- OUTSIDE RECORDS SUMMARY | 2025-05-06 10:02 | XMS_ITS | Clinical Summary ---
Author Organization [facility] Address [address] [place] [address] Care Team Providers Care Aircraft Technician Name Role Phone Allyson Avery APRN Primary Care Provider + [phone] Allergies No known active allergies Medications multivitamin (THERAGRAN) tablet tablet Take 1 tablet by mouth 2 (two) times a day. Active Methylsulfonylm ethane (MSM PO) Take 1,000 mg by mouth 2 (two) times a day. Active aspirin 81 MG EC tablet Take 1 tablet by mouth Daily. Active levothyroxine (SYNTHROID, LEVOTHROID) 75 MCG tablet Take 50 mcg by mouth Daily. Active allopurinol (ZYLOPRIM) 100 MG tablet Take 1 tablet by mouth Daily. Active B Complex Vitamins (VITAMIN B COMPLEX PO) Take by mouth Daily. Active clopidogrel (PLAVIX) 75 MG tablet TAKE ONE TABLET BY MOUTH DAILY 90 tablet 3 08/14/2022 Active ranolazine (RANEXA) 500 MG 12 hr tablet Take 1 tablet by mouth 2 (Two) Times a Day. 09/09/2023 Active Arginine 1000 MG tablet Take 1,000 mg by mouth Daily. 09/09/2023 Active rosuvastatin (CRESTOR) 40 MG tablet TAKE 1 TABLET BY MOUTH ONCE WEEKLY 12 tablet 3 05/18/2024 Active linaclotide (LINZESS) 290 MCG capsule capsule Take 1 capsule by mouth. Every other day Active Trulance 3 MG tablet Take 1 tablet by mouth Every Other Day. 12/16/2024 Active docusate sodium (COLACE) 100 MG capsule Take 1 capsule by mouth 2 (Two) Times a Day. Active memantine (NAMENDA) 10 MG tabletIndicatio ns:Moderate cognitive impairment Take 1 tablet by mouth Daily. 60 tablet 5 01/21/2025 01/22/20 26 Active carvedilol (COREG) 12.5 MG tablet Take 1 tablet by mouth 2 (Two) Times a Day With Meals. Active lisinopril (PRINIVIL,ZESTR IL) 10 MG tablet Take 1 tablet by mouth Daily. Active spironolactone (ALDACTONE) 25 MG tablet Take 1 tablet by mouth Daily. Active dexAMETHasone (DECADRON) 1 MG tablet Take 1 tablet by mouth 1 (One) Time for 1 dose. 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 Moderate lesion distal to the MONROY to the LAD 50-70% by Dr. Silva @ [facility] 12/09/14 LHC: 1/3 grafts occluded, BMS to SVG to OM2/OM3. EF 35-40% Failed attempt at PCI to OM1 distribution due to tortuosity and heavy calcification. BMS to proximal LAD. 04/29/07 CABG: MONROY to LAD, SVG to D1 & OM2, SVG to RCA. Hyperlipidemia LDL goal <70 03/15/2021 Essential hypertension 03/15/2021 Hypothyroidism (acquired) 03/15/2021 SSS (sick sinus syndrome) 03/15/2021 Overview (01/08/2022): 03/16/20 Upgrade of his dual-chamber pacemaker to SJM dual-chamber ICD Cardiac defibrillator in situ 05/11/2020 Cardiac pacemaker in situ 08/02/2017 Sick sinus syndrome 07/05/2017 Hypertensive disorder 01/16/2016 Coronary atherosclerosis 07/15/2015 Hyperlipidemia 07/15/2015 Gout Arthritis Ischemic cardiomyopathy Overview (01/08/2022): 03/16/20 Upgrade of his dual-chamber pacemaker to SJM dual-chamber ICD Encounters Date Type Department Care Team Description 05/01/2025 Refill [facility] [address] [place] [address] Mansoor Silva MD Med Refill 04/01/2025 Results Follow-Up [facility] ENDO[facility] [address] [place] [address] Rosa De Dios MD 03/26/2025 Results Follow-Up [facility] [address] [place] [address] Rosa De Dios MD 03/25/2025 1:00 PM EDT Office Visit [facility] [address] [place] [address] Rosa De Dios MD Hypothyroidism, unspecified type (Primary Dx); Elevated cortisol level; High serum renin; High catecholamines 03/25/2025 Travel 03/08/2025 Results Follow-Up [facility] [address] [place] [address] Mansoor Silva MD 02/23/2025 Telephone [facility] [address] [place] [address] Mansoor Silva MD 02/03/2025 Telephone [facility] [address] [facility] [address] [place] [address] Mansoor Silva MD from Last 3 Months Family History Medical History Relation Name Comments Heart disease Brother Abimael Heart disease Father Shiv No Known Problems Sister 1 Heart disease Sister 2 Ki Relation Name Status Comments Brother Abimael Alive Father Shiv Mother Sister 1 Alive Sister 2 Ki Alive Social History Tobacco Use Types Packs/Day [...] Pulse 71 03/25/2025 12:58 PM EDT Temperature 36.5 C (97.7 F) 12/23/2024 2:20 PM EDT Respiratory Rate 18 12/23/2024 2:20 PM EDT Oxygen Saturation 97% 03/25/2025 12:58 PM EDT Inhaled Oxygen Concentration - - Weight 73.2 kg (161 lb 6.4 oz) 03/25/2025 12:58 PM EDT Height 177.8 cm (5' 10 ) 03/25/2025 12:58 PM EDT Body Mass Index 23.16 03/25/2025 12:58 PM EDT Plan of Treatment Upcoming Encounters Date Type Department Care Team (Late st Contact Info) Description 07/20/2025 3:45 PM EST Office Visit [facility] [address] [facility] [address] [place] [address] Rosa De Dios MD [address] [facility] [address] [place] [address] 07/26/2025 2:00 PM EST Office Visit [facility] [address] [facility] [address] [place] [address] Monica Quintero, DNP, MARKETING REPRESENTATIVE [address] [place] [address] 10/28/2025 1:30 PM EST Office Visit [facility] C[facility] [address] [facility] [address] [place] [address] Mansoor Silva MD [address] [facility] [address] [place] [address] Health Maintenance Due Date Last Done Comments DIABETIC FOOT EXAM 1950 URINE MICROALBUMIN-CREATININ E RATIO (uACR) 1950 Pneumococcal Vaccine 50+ (1 of 2 - PCV) 1958 05/22/2016 ZOSTER VACCINE (1 of 2) 1989 RSV Vaccine - Adults (1 - 1- dose 75+ series) 2014 ANNUAL WELLNESS VISIT 03/15/2021 DIABETIC EYE EXAM 06/13/2021 06/13/2020 HEMOGLOBIN A1C 01/18/2025 07/21/2024, 06/03, 01/04/2023, Additional history exists COVID-19 Vaccine ( - 2024-2 6 season) 2025 10/02/2021, 12/02/2020, 11/03/2020 INFLUENZA VACCINE 06/02/2025 07/21/2024, , 07/21/2024, Additional history exists LIPID PANEL 07/21/2025 07/21/2024, 09/02, 06/25/2023, Additional history exists TDAP/TD VACCINES (2 - Tdap) 04/18/2032 04/18/2022 Procedures Procedure Name Priority Date/Time Associated Diagnosis Comments CORTISOL - AM Routine 03/29/2025 7:45 AM EDT CATECHOLAMINES, FRACTIONATED, PLASMA Routine 03/25/2025 1:40 PM EDT High catecholamines METANEPHRINES, FRAC. FREE, PLASMA Routine 03/25/2025 1:40 PM EDT High catecholamines BASIC METABOLIC PANEL Routine 03/25/2025 1:40 PM EDT High serum renin ALDOSTERONE/RENIN RATIO Routine 03/25/2025 1:40 PM EDT High serum renin T4, FREE Routine 03/25/2025 1:40 PM EDT Hypothyroidism, unspecified type TSH Routine 03/25/2025 1:40 PM EDT Hypothyroidism, unspecified type REMOTE DEVICE CHECK 03/13/2025 12:00 AM EDT PROBNP Routine 03/03/2025 8:53 AM EDT BASIC METABOLIC PANEL Routine 03/03/2025 8:53 AM EDT SCANNED - LABS 03/03/2025 REMOTE DEVICE CHECK 02/26/2025 4:00 AM EDT from Last 3 Months Results * (ABNORMAL) Cortisol - AM (03/29/2025 7:45 AM EDT) [facility] Cortisol - AM 2.5(L) 6.2 - 19.4 ug/dL [facility] 03/29/2025 7:45 AM EDT 03/29/2025 Narrative [facility] ([facility]ATORY) - 03/30/2025 2:36 PM EDT Performed at: [address] [id number] In Home Nanny: Colin Ch PhD, Phone: [phone] Patient Fasting: N Rosa De Dios MD LAB BLOOD ORDERABLES Final Resu lt Performing Organization Address City/[facility] [[email or web address]] Co de Phone Number [facility] (AMBULATORY) [address] [place] [address], [place] [phone] [facility] [address] [place] [address], [place] [phone] * Metanephrines, Frac. Free, Plasma (03/25/2025 1:40 PM EDT) Normetanephrine 42.9 0.0 - 297.2 pg/mL 04/06/2025 9:08 PM EDT [facility] Metanephrine <25.0 0.0 - 88.0 pg/mL 04/06/2025 9:08 PM EDT [facility] Blood Venipuncture / Unknown 03/25/2025 1:40 PM EDT 03/25/2025 1:41 PM EDT Narrative [facility] - 04/06/2025 9:08 PM EDT Test(s) 061315-Jfuawdehecveqaz, Pl; [id number]-Kzzdhzolcxrt, Pl was developed and its performance characteristics determined by [facility]. It has not been cleared or approved by the Food and Drug Administration. Performed at: 01 - [address] [id number] In Home Nanny: Van Dang MD, Phone: [phone] Rosa De Dios MD LAB BLOOD ORDERABLES Final Resu lt Performing Organization Address City/[facility]/ZIP Co de Phone Number [facility] [address] [place] [address], [place] [phone] * Aldosterone / Renin Ratio (03/25/2025 1:40 [...] 1:41 PM EDT Narrative [facility] - 03/30/2025 11:10 AM EDT Test(s) 210661-Ujehrbubjqw; 194724-Ueiin Activity, Plasma was developed and its performance characteristics determined by [facility]. It has not been cleared or approved by the Food and Drug Administration. Performed at: 01 - [address] [id number] In Home Nanny: Van Dang MD, Phone: [phone] us Rosa De Dios MD LAB BLOOD ORDERABLES Final Resu lt [facility] [address] [place] [address], * (ABNORMAL) Catecholamines, Fractionated, Plasma (03/25/2025 1:40 [...] PM EDT 03/25/2025 1:41 PM EDT Narrative [facility] - 03/31/2025 10:10 AM EDT Test(s) 164435-Eszdmrbrafjdkv; 527300-Bofmrmirwws; 133729-Belvcwyg was developed and its performance characteristics determined by [facility]. It has not been cleared or approved by the Food and Drug Administration. Performed at: [facility] [address] [id number] In Home Nanny: aVn Dang MD, Phone: [phone] us Rosa De Dios MD LAB BLOOD ORDERABLES Final Resu lt Performing Organization Address City/[facility]/ZIP Co de Phone Number [facility] [address] [place] [address], [place] [phone] * TSH (03/25/2025 1:40 PM EDT) TSH 1.380 0.270 - 4.200 uIU/mL 03/25/2025 11:44 PM EDT [facility] Blood Structure of left upper limb / Unknown Venipuncture / Unknown 03/25/2025 1:40 PM EDT 03/25/2025 1:41 PM EDT us Rosa De Dios MD LAB BLOOD ORDERABLES Final Resu lt Performing Organization Address [facility] [[email or web address]] Co de Phone Number [facility]
[address] [place] [address], [place] [phone] * T4, Free (03/25/2025 1:40 PM EDT) Free T4 1.25 0.92 - 1.68 ng/dL 03/25/2025 11:44 PM EDT [facility] Blood Structure of left upper limb / Unknown Venipuncture / Unknown 03/25/2025 1:40 PM EDT 03/25/2025 1:41 PM EDT us Rosa De Dios MD LAB BLOOD ORDERABLES Final Resu lt Performing Organization Address [facility] [[email or web address]] Co de Phone Number [facility]
[address] [place] [address], [place] [phone] * (ABNORMAL) Basic Metabolic Panel (03/25/2025 1:40 PM EDT) Only the most recent of2 resultswithin the time period is included. Glucose 130(H) 65 - 99 mg/dL 03/25/2025 11:43 PM T [facility] BUN 33.0(H) 8.0 - 23.0 mg/dL 03/25/2025 11:43 PM [facility] Creatinine 1.14 0.76 - 1.27 mg/dL 03/25/2025 11:43 PM T [facility] Sodium 140 136 - 145 mmol/L 03/25/2025 11:43 PM [facility] Potassium 4.8 3.5 - 5.2 mmol/L 03/25/2025 11:43 PM T [facility] Chloride 102 98 - 107 mmol/L 03/25/2025 11:43 PM [facility] CO2 26.2 22.0 - 29.0 mmol/L 03/25/2025 11:43 PM [facility] Calcium 10.5 8.6 - 10.5 mg/dL 03/25/2025 11:43 PM [facility] BUN/Creatinine Ratio 28.9(H) 7.0 - 25.0 03/25/2025 11:43 PM T [facility] Anion Gap 11.8 5.0 - 15.0 mmol/L 03/25/2025 11:43 PM [facility] eGFR 63.0 >60.0 mL/min/1.7 3 03/25/2025 11:43 PM [facility] Blood Structure of left upper limb / Unknown Venipuncture / Unknown 03/25/2025 1:40 PM EDT 03/25/2025 1:41 PM EDT [facility] LABORATORY - 03/25/2025 11:43 PM EDT [...] MD LAB BLOOD ORDERABLES Final Resu lt [facility]
[address] [place] [address], * Remote Device Check (03/13/2025 12:00 AM EDT) Only the most recent of2 resultswithin the time period is included. Date Time Interrogation Session [id number] [facility] Implantable Pulse Generator Storeroom Attendant [facility] Implantable Pulse Generator Type ICD [facility] Implantable Pulse Generator Model [id number] Ellipse(TM) [facility] Implantable Pulse Generator Serial Number [id number] [facility] Implantable Pulse Generator Implant Date 20200316 [facility] Group [employer] Battery Voltage 2.890 [facility] Home Inventory S[[facility] RADIOLOGY Battery FOOD SERVICE WORKER Trigger 2.590 [employer] Battery Status [facility] RAD[facility]OLOG[facility] Gokul Statistic RA Percent Paced 98.70 [facility] Gokul Statistic RV Percent Paced 97.10 [facility] RADIOLOGY Lead Channel RA Sensing Intrinsic Amplitude 3.500 [facility] RADIOLOGY Lead Channel Setting RA Sensing Sensitivity 0.30 [facility] RADIOLOGY Lead Channel RA Impedance Value 410 [facility] RADIOLOGY Lead Channel RA Pacing Threshold Amplitude 0.630 [facility] RADIOLOGY Lead Channel RA Pacing Threshold Pulse Width 0.5 [facility] RADIOLOGY Lead Channel RA Measurements Date and Time [id number] [employer] Lead Channel Setting RA Pacing Amplitude 1.630 [facility] RADIOLOGY Lead Channel Setting RA Pacing Pulse Width 0.5 [facility] RADIOLOGY Lead Channel RV Sensing Intrinsic Amplitude 12.000 [facility] RADIOLOGY Lead Channel Setting RV Sensing Sensitivity 0.50 [facility] RADIOLOGY Lead Channel RV Impedance Value 360 [facility] Lead Channel RV Pacing Threshold Amplitude 0.750 [facility] RADIOLOGY Lead Channel RV Pacing Threshold Pulse Width 0.5 [employer] Lead Channel RV Measurements Date and Time [id number] [facility] Lead Channel Setting RV Pacing Amplitude 1.000 [facility] Lead Channel Setting RV Pacing Pulse Width 0.5 [facility] Gokul Setting Mode (NBG Code) DDDR [facility] Gokul Setting Lower Rate Limit 70 [facility] Gokul Setting AT Mode Switch Rate 180 [facility] Gokul Setting Maximum Tracking Rate 120 [facility] G[facility]ul Setting Maximum Sensor Rate 120 [facility] Setting PAV Delay 200 [facility] Setting IZZY Delay 180 [facility] Therapy Statistic Recent Shocks Delivered 0 [facility] Therapy Statistic Recent Shocks Aborted 0 [facility] Therapy Statistic Recent ATP Delivered 0 [facility] SHOCK MEASURED IMPEDANCE 77 [facility] Zone Setting Type Category VT [facility] IDC RATE 1 130 [facility] THERAPIES 3 x Burst+Scan,3 x Burst+Scan [facility] Zone Setting Status On [facility] Zone ID 1 [facility] Zone Setting Type Category VT [facility] IDC RATE 1 200 [facility] THERAPIES 3 x Burst+Scan, 25J, 30J, 36J x 2 [facility] Zone Setting Status On [facility] Zone ID 2 [facility] Zone Setting Type Category VF [facility] IDC RATE 1 240 [facility] THERAPIES 30J, 36J, 36J x 4 [facility] RAD[facility] Zone Setting Status On [facility] Zone ID 3 [facility] 03/13/2025 us Mansoor Silva MD CV IMPLANTABLE CARDIAC DEVICE Final Result [facility] * (ABNORMAL) proBNP (03/03/2025 8:53 AM EDT) proBNP 785(H) 0 - 486 pg/mL [facility] Comment: The following cut-points have been suggested for the use of proBNP for the diagnostic evaluation of heart failure (HF) in patients with acute dyspnea: Modality Age Optimal Cut (years) Point Diagnosis (rule in HF) <50 450 pg/mL 50 - 75 900 pg/mL >75 1800 pg/mL Exclusion (rule out HF) Age independent 300 pg/mL 03/03/2025 8:53 AM EDT 03/03/2025 Narrative [facility] (AMBULATORY) - 03/04/2025 11:11 AM EDT Performed at: 01 - [facility] [address] [place], [place] [id number] In Home Nanny: Colin Ch PhD, Phone: [phone] Patient Fasting: N Mansoor Silva MD LAB BLOOD ORDERABLES Final Re sult [facility] (AMBULATORY) [address] [place] [address], [facility] [address] [place] [address], * LABS SCANNED (03/03/2025) Mansoor Silva MD LAB BLOOD ORDERABLES Final Re sult from Last 3 Months Insurance MEDICARE A & B [facility] OPTIONS Advance Directives Documents on File Type Date Recorded Patient Lobster Catcher Expl anation POWER OF CORPORATE ASSOCIATE - SCAN 03/20/2021 10:31 AM POWER OF CORPORATE ASSOCIATE, [facility], 05/31/2020 LIVING WILL - SCAN 03/20/2021 10:31 AM LUIS EDUARDO IBAN SWENSON, 06/[birth year]2017 Care Teams Aircraft Technician Relationship Specialty Start Date End Date Allyson Avery APRN [address] [place] [address] [facility] [address] PCP - General Internal Medicine 07/22/23
--- OUTSIDE RECORDS SUMMARY | 2025-05-06 10:02 | XMS_ITS | Encounter Summary ---
Author Organization [employer] ([place], [place], [place], [place]) Address [address] [place] [address] Care Team Providers Care Quality Assurance Monitor Final Name Role Phone Allyson Avery APRN Primary Care Provider Encounter Details Date Type Department Care Team (Late st Contact Info) Description 07/01/2019 Transcribed Document [facility] Family Medicine [address] [place] [address] ProviderTatiana MD [address] [place] [address] Social History Tobacco Use Types Packs/Day Years [...] on filedocumented in this encounter Care Teams Quality Assurance Monitor Final Relationship Specialty Start Date End Date Allyson Avery, SUPPORT SERVICES REP [address] [place] [address] PCP - General Nurse Practitioner 02/06/23 documented as of this encounter
--- OUTSIDE RECORDS SUMMARY | 2025-05-06 10:02 | XMS_ITS | Encounter Summary ---
Author Organization [employer] ([place], [place], [place], [place]) Address [address] [place] [address] Care Team Providers Care Seismograph Observer Name Role Phone Allyson Avery APRN Primary Care Provider Encounter Details Date Type Department Care Team (Late st Contact Info) Description 07/01/2019 Transcribed Document [facility] [place] Medicine [address] [place] [address] ProviderTatiana MD [address] [place] [address] Social History Tobacco Use Types Packs/Day Years [...] Performed On: 07/01/2019 10:36 EDT by ABRAHAM BUSTOS, PT Discharge Summary Discharge Summary Provider Notified : Nursing, Physical Therapy, Occupational Therapy Reason for Discharge : Other: EVAL ONLY Discharge Summary Comment, PT : no skilled PTx needs noted at eval pt's son present and will amb with pt ABRAHAM BUSTOS, PT - 07/01/2019 10:36 EDT Electronically signed by [facility] Conversion Accounts Payable Analyst Cerner at 12/20/2022 12:24 PM CDT documented in this encounter Plan of Treatment Not on file documented as of this encounter Visit Diagnoses Not on filedocumented in this encounter Care Teams Seismograph Observer Relationship Specialty Start Date End Date Allyson Avery, WHOLESALE LOAN PROCESSOR [address] [place] [address] PCP - General Nurse Practitioner 02/06/23 documented as of this encounter
--- OUTSIDE RECORDS SUMMARY | 2025-05-06 10:02 | XMS_ITS | Encounter Summary ---
Author Organization [employer] ([place], [place], [place], [place]) Address [address] [place] [address] Care Team Providers Care Machine Shorthand Reporter Name Role Phone Allyson Avery APRN Primary Care Provider Encounter Details Date Type Department Care Team (Late st Contact Info) Description 03/15/2020 Transcribed Document [facility] [place] Medicine [address] [place] [address] ProviderTatiana MD [address] [place] [address] Social History Tobacco Use Types Packs/Day Years [...] On: 03/15/2020 15:28 EDT by CINDY GOMES RN-Vice President Of CommunicationsBicycle I Assembler Progress Note Discharge Arrangements : Patient Post-Acute [...] Attend Multidisciplinary Rounds? : Yes CINDY GOMES RN-Vice President Of Communications - 03/15/2020 15:28 EDT Narrative Progress Note Narrative Progress Note : Readmission risk low ELOS: 3 days HD#1 Adm Dx: Chest Pain, HTN; PMH: CABG 12/2014, LHC 09/2019 cardiac stents placed, [employer] PPM; interrogation in the ED revealed 4 episodes NSVT since 02/2020, on Telemetry 3 beat run [place]. Plan [facility] today. 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 His daughter Jesika is also involved in his care [phone]. Patient's PCP is MARCO Duncan. 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 No prior rehab stay, home health, oxygen or DME. Patient's family will transport on discharge. DCP: Anticipate patient will discharge home with family. CM will follow for any needed referrals. CINDY GOMES RN-Vice President Of Communications - 03/15/2020 15:28 EDT documented in this encounter Plan of Treatment Not on file documented as of this encounter Visit Diagnoses Not on filedocumented in this encounter Care Teams Machine Shorthand Reporter Relationship Specialty Start Date End Date Allyson Avery APRN [address] [address] PCP - General Nurse Practitioner 02/06/23 documented as of this encounter
--- OUTSIDE RECORDS SUMMARY | 2025-05-06 10:02 | XMS_ITS | Encounter Summary ---
Author Organization [employer] ([place], [place], [place], [place]) Address [address] [place] [address] Care Team Providers Care Flaring Machine Operator Name Role Phone Bennie Allyson BABCOCK Primary Care Provider Encounter Details Date Type Department Care Team (Late st Contact Info) Description 07/01/2019 Transcribed Document [facility] [place] Family Medicine [address] [place] [address] ProviderTatiana MD [address] [place] [address] Social History Tobacco Use Types Packs/Day Years [...] On: 07/01/2019 1:01 EDT by Oriana Bautista, STRAND AND BINDER CONTROLLER Quick Look Assessment Level of Consciousness : Alert, Awake Affect/Behavior : Appropriate, Calm, Cooperative Orientation : Oriented x 4 Skin Temperature : Warm Oriana Bautista RN - 07/01/2019 1:01 EDT ED General-Functional Assess Information Obtained From : Patient Preferred Communication Mode : Verbal Communication Barrier : None Primary Language : Maori Any Spiritual/Cultural Needs or Requests : No Currently in Unsafe Situation : No Living Situation : Home Oriana Bautista RN - 07/01/2019 1:01 EDT Social Habits [...] Updated: 12/28/2015 05:01:23 EDT by Sara Mcdonald, Khris) 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 Highest education level: High school. Operates hazardous equipment: Yes. Workplace hazards: Heavy lifting/twisting. (Last Updated: 12/28/2015 04:59:07 EDT by Sara Mcdonald, Khris) Sexual: Sexually active: No. (Last Updated: 12/28/2015 05:03:16 EDT by Sara Mcdonald Rn) Cardiovascular ASMT, ED Detailed Cardiovascular Assessment : Open Oriana Bautista, RN - 07/01/2019 1:04 EDT Cardiovascular Assessment [...] Genitourinary Assessment, ED Genitourinary Assessment WDL : WDL Oriana Bautista RN [...] Oriana Bautista RN - 07/01/2019 1:01 EDT Electronically signed by Aruna Ortiz Conversion Senior Financial Reporting Analyst Tayo at 12/20/2022 12:25 PM CDT documented in this encounter Plan of Treatment Not on file documented as of this encounter Visit Diagnoses Not on filedocumented in this encounter Care Teams Flaring Machine Operator Relationship Specialty Start Date End Date AveryHien lae, NON FOOD RECEIVING CLERK [address] [address] PCP - General Nurse Practitioner 02/06/23 documented as of this encounter
--- OUTSIDE RECORDS SUMMARY | 2025-05-06 10:03 | XMS_ITS | Encounter Summary ---
Author Organization [employer] ([place], [place], [place], [place]) Address [address] [place] [address] Care Team Providers Care Sergeant At Arms Name Role Phone Allyson Avery APRN Primary Care Provider [phone] Reason for Referral * Ultrasound (Routine) - Closed Specialty Diagnoses / Procedures Referred By Venancio t Referred To Contact Diagnoses Cold extremities Procedures Ultrasound lower extremity arteries complete Allyson Avery APRN [address] [address] Phone: tel: fax: Referral ID Status Reason Start Date Expiration Date Visits Re quested Visits Authorized [id number] Closed 01/15/2023 07/14/2023 1 1 Encounter Details Date Type Department Care Team (Late st Contact Info) Description 01/15/[address] [facility] ([place], [place]) Central Scheduling [address] [place] [address] Allyson Avery APRN [address] [address] Cold extremities (Primary Dx) Social History Tobacco [...] Dr. Tameka Root. Transcribed by Latricia Morales (Amber). Narrative 02/06/2023 3:38 PM EDT ARTERIAL DUPLEX DOPPLER EVALUATION OF THE LEFT AND RIGHT LOWER EXTREMITY WITH SPECTRAL ANALYSIS . HISTORY: Lifestyle altering claudication. PROCEDURE: Spectral and color Doppler waveform evaluation of the lower extremities was performed . Spectral analysis was performed. FINDINGS: RIGHT LOWER EXTREMITY. Velocities cm/sec : EMPLOYEE RELATIONS REPRESENTATIVE: WNL SFA Mid: WNL SFA Dist: WNL POP: WNL PT: WNL PT Ankle: WNL DP distal: WNL VONNIE: NA Waveforms are triphasic . LEFT LOWER EXTREMITY. Velocities cm/sec : EMPLOYEE RELATIONS REPRESENTATIVE: WNL SFA Mid: WNL SFA Dist: WNL POP: WNL PT: WNL PT Ankle: WNL DP distal: WNL VONNIE: NA Waveforms are triphasic . Procedure Note Jose Root MD - 02/06/2023 ARTERIAL DUPLEX DOPPLER EVALUATION OF THE LEFT AND RIGHT LOWER EXTREMITY WITH SPECTRAL ANALYSIS . HISTORY: Lifestyle altering claudication. PROCEDURE: Spectral and color Doppler waveform evaluation of the lower extremities was performed . Spectral analysis was performed. FINDINGS: RIGHT LOWER EXTREMITY. Velocities cm/sec : EMPLOYEE RELATIONS REPRESENTATIVE: WNL SFA Mid: WNL SFA Dist: WNL POP: WNL PT: WNL PT Ankle: WNL DP distal: WNL VONNIE: NA Waveforms are triphasic . LEFT LOWER EXTREMITY. Velocities cm/sec : EMPLOYEE RELATIONS REPRESENTATIVE: WNL SFA Mid: WNL SFA Dist: WNL [...] extremities documented in this encounter Care Teams Sergeant At Arms Relationship Specialty Start Date End Date Allyson Avery, YOKO [address] [place] [address] PCP - General Nurse Practitioner 02/06/23 documented as of this encounter
--- OUTSIDE RECORDS SUMMARY | 2025-05-06 10:03 | XMS_ITS | Encounter Summary ---
Author Organization [employer] ([place], [place], [place], [place]) Address [address] [place] [address] Care Team Providers Care Integrity Engineer Name Role Phone Allyson Avery APRN Primary Care Provider [phone] Encounter Details Date Type Department Care Team (Late st Contact Info) Description 03/17/2020 Transcribed Document [facility] [place] Family Medicine [address] [place] [address] ProviderTatiana MD [address] [place] [address] Social History Tobacco Use Types Packs/Day Years [...] on filedocumented in this encounter Care Teams Integrity Engineer Relationship Specialty Start Date End Date Allyson Avery, BRILLIANDEER LOOPER [address] [id number] PCP - General Nurse Practitioner 02/06/23 documented as of this encounter
--- OUTSIDE RECORDS SUMMARY | 2025-05-06 10:03 | XMS_ITS | Encounter Summary ---
[facility] Organization [facility] Address [address] [place] [address] Care Team Providers Care Data Collection Associate Name Role Phone Bennie Allyson BABCOCK Primary Care Provider + [phone] Encounter Details Date Type Department Care Team (Late st Contact Info) Description 03/26/2025 Results Follow-Up [facility] ENDOCRINOLOGY [address] [facility] [address] [place] [address] Rosa De Dios MD [address] [facility] [address] [place] [address] Social History Tobacco Use Types Packs/Day Years [...] encounter Miscellaneous Notes * Telephone Encounter - Nina Huntley MA - 04/07/2025 11:07 AM EDT Spoke with patients sonJake. Advised on Dr. De Dios's result note and he voiced understanding. Will mail lab orders, per patients request. Patient also was scheduled for a 3 month f/u. Patient advised on instructions for these specific labs, pt and son voiced understanding. documented in this encounter Plan of Treatment Upcoming Encounters Date Type Department Care Team (Late st Contact Info) Description 07/20/2025 3:45 PM EST Office Visit [facility] ENDOCR[facility]Y [address] [facility] 100 [place] [address] Rosa De Dios MD [address] [address] 07/26/2025 2:00 PM EST Office Visit [facility] NEUROLOGY [address] [facility] 201 [place] [phone] Monica Quintero, DNP, AUTOMOBILE TAILLIGHT ASSEMBLER [address] [facility] [address] [place] [address] 10/28/2025 1:30 PM EST Office Visit [facility] CARDIOLOGY [address] [facility] 400 [place] [address] Mansoor Silva MD 1720 [facility] 400 [place] [address] Scheduled Orders Name Type Priority Associated Diagnoses Orde r Schedule Dexamethasone Level, Serum Lab Routine Elevated cortisol level Expected: 04/21/2025 (Approximate), Expires: 04/07/2026 Cortisol - AM Lab Routine Elevated cortisol level Expected: 04/21/2025 (Approximate), Expires: 07/08/2026 documented as of this encounter Visit Diagnoses Diagnosis Elevated cortisol level- Primary documented in this encounter Care Teams Data Collection Associate Relationship Specialty Start Date End Date Allyson Avery APRN [address] [id number] PCP - General Internal Medicine 07/22/23 documented as of this encounter
--- OUTSIDE RECORDS SUMMARY | 2025-05-06 10:03 | XMS_ITS | Encounter Summary ---
[facility] Address [address] [place] [address] Care Team Providers Care Bottom Liner Name Role Phone Bennie Allyson BABCOCK Primary Care Provider + [phone] Encounter Details Date Type Department Care Team (Late st Contact Info) Description 04/01/2025 Results Follow-Up [facility] ENDOCRINOLOGY [address] [facility] [address] [place] [address] Rosa De Dios MD [address] [facility] [address] [place] [phone] Social History Tobacco Use Types Packs/Day Years [...] Visit [facility] END[facility] [address] [facility] [address] [place] [address] Rosa De Dios MD [address] [facility] [address] [place] [address] 07/26/2025 2:00 PM EST Office Visit [facility] NEUROLOGY [address] [facility] 201 [place] [address] Monica Quintero, SAMUEL, RAG COLLECTOR [address] [facility] [address] [place], [place] [address] 10/28/2025 1:30 PM EST Office Visit [facility] CARDIOLOGY 17[address] [facility] 400 [place] [address] Mansoor Silva MD 1720 [facility] 400 [place] [address] documented as of this encounter Visit Diagnoses Not on filedocumented in this encounter Care Teams Bottom Liner Relationship Specialty Start Date End Date Allyson Avery APRN [address] [place] [address] PCP - General Internal Medicine 07/22/23 documented as of this encounter
--- OUTSIDE RECORDS SUMMARY | 2025-05-06 10:03 | XMS_ITS | Encounter Summary ---
Author Organization [employer] ([place], [place], [place], [place]) Address [address] [place] [address] Care Team Providers Care Powder Shoveler Name Role Phone Allyson Avery APRN Primary Care Provider Encounter Details Date Type Department Care Team (Late st Contact Info) Description 03/23/2020 Transcribed Document [facility] [place] [address] [place] [address] ProviderTatiana MD [address] [place] [address] Social History Tobacco Use Types Packs/Day Years [...] you are awake and alert. ??? Take kxuc-ylv-yapozfd and prescription medicines only as told by [...] 06/09/2014 Document Revised: 01/21/2017 Document Reviewed: 12/08/2016 [employer] Interactive Patient Education ? 2020 [employer] Procedures Pacemaker Implantation, Adult, Care After [...] these instructions at home: Medicines ??? Take ysei-tbl-donjhll and prescription medicines only as told by [...] 03/08/2006 Document Revised: 08/19/2019 Document Reviewed: 05/31/2017 [employer] Interactive Patient Education ? 2020 [employer] Fractured Pacemaker Lead Replacement The most [...] including vitamins, herbs, eye drops, creams, and ayiv-ezs-lilxggp medicines. ??? Any problems you or family [...] 09/18/2006 Document Revised: 09/08/2019 Document Reviewed: 07/09/2017 [employer] Interactive Patient Education ? 2019 [employer] documented in this encounter Plan of Treatment Not on file documented as of this encounter Visit Diagnoses Not on filedocumented in this encounter Care Teams Powder Shoveler Relationship Specialty Start Date End Date Allyson Avery APRN [address] [address] PCP - General Nurse Practitioner 02/06/23 documented as of this encounter
--- OUTSIDE RECORDS SUMMARY | 2025-05-06 10:03 | XMS_ITS | Encounter Summary ---
Author Organization [employer] ([place], [place], [place], [place]) Address [address] [place] [address] Care Team Providers Care Call Center Operator Name Role Phone Allyson Avery APRN Primary Care Provider Encounter Details Date Type Department Care Team (Late st Contact Info) Description 03/16/2020 Transcribed Document [facility] [place] [address] [place] [address] ProviderTatiana MD [address] [place] [address] Social History Tobacco Use Types Packs/Day Years [...] OT : 79 yo M [address] 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 EUGENE LYNCH OTR/Belia - 03/17/2020 13:23 EDT [...] Persons Providing Information : Patient, Child/Children, Other: [facility] Home Equipment, Therapy : None Home Setup [...] Level : Supervision or set-up EUGENE LYNCH OTR/Belia - 03/17/2020 13:23 EDT Mobility Device/Prosthesis/Wt Bearing Weight Bearing Status Maintained : Yes EUGENE LYNCH OTR/Belia - 03/17/2020 13:23 EDT Functional Mobility Mobility Grid Supine to Sit : Rehab Complete independence Sit to Stand : Supervision/set-up Stand to Sit : Supervision/set-up EUGENE LYNCH OTR/Belia - 03/17/2020 13:23 EDT Sit to Stand Device : Belt, gait Stand to Sit Device : Belt, gait EUGENE LYNCH OTR/Belia - 03/17/2020 13:23 EDT Cognition Assessment, OT Orientation : Oriented x 4 Cognition Assessment, OT : Intact Comprehension Assessment, OT : Intact EUGENE LYNCH OTR/Belia - 03/17/2020 13:23 EDT Education OT Occupational Therapy Education Grid Functional Mobility Training : Returns demonstration Role of Occupational Therapy : Verbalizes understanding EUGENE YLNCH OTR/Belia Escobar 03/17/2020 13:23 EDT Teaching/Learning Assessment Barriers To Learning : None evident Individuals Taught : Patient Readiness to Learn : Cooperative Readiness to Learn : Explanation Learning Style Preferences Patient : None Learning Style Preferences Family : None EUGENE LYNCH OTR/Belia Escobar 03/17/2020 13:23 EDT Indication Assessment, OT Occupational Therapy Indicated : No Occupational Therapy Not Indicated : No skilled services indicated, Other: Patient with discharge orders home 03/17 EUGENE LYNCH OTR/Belia - 03/17/2020 13:23 EDT Plan of Care, OT OT Tx Plan/Goals Established w Patient : No Reason OT Treatment/Plan Not Established : Patient with discharge orders home 03/17 SHABANAKENZIE WATERSEUGENEGIANCARLO LOBATO/Belia - 03/17/2020 13:23 EDT Treatment Note Subjective [...] time. Plan for Treatment : Defer OT. SYED GIANCARLO HELTON/Belia - 03/17/2020 13:23 EDT Pain Assessment Pain [...] EUGENE LYNCH OTR/Belia - 03/17/2020 13:23 EDT [place] OT Charges OT Eval Low Complexity : 1 EUGENE LYNCH OTR/Belia - 03/17/2020 13:23 EDT documented in this encounter Plan of Treatment Not on file documented as of this encounter Visit Diagnoses Not on filedocumented in this encounter Care Teams Call Center Operator Relationship Specialty Start Date End Date Allyson Avery, YOKO [address] [address] PCP - General Nurse Practitioner 02/06/23 documented as of this encounter
--- OUTSIDE RECORDS SUMMARY | 2025-05-06 10:03 | XMS_ITS | Encounter Summary ---
[facility] Organization [facility] Address [address] [place] [address] Care Team Providers Care Scrubber Machine Tender Name Role Phone Allyson Avery HUMAN RESOURCES OPERATIONS MANAGER Primary Care Provider + [phone] Encounter Details Date Type Department Care Team (Latest Contact Info) Description 03/25/2025 Travel Social History Tobacco Use Types Packs/Day [...] Description 07/20/2025 3:45 PM EST Office Visit [facility] ENDOCRINOLOGY [address] [facility] [address] [place] [address] Rosa De Dios MD 3084 [facility] 100 [place] [address] 07/26/2025 2:00 PM EST Office Visit [facility] NEUROLOGY [address] [facility] 201 [place] [address] Monica Quintero, SAMUEL, HUMAN RESOURCES OPERATIONS MANAGER [address] [facility] [address] [place] [address] 10/28/2025 1:30 PM EST Office Visit [facility] CARDIOLOGY 1720 [facility] 400 [place] [address] Mansoor Silva MD 1720 [facility] 400 [place] [address] documented as of this encounter Visit Diagnoses Not on filedocumented in this encounter Care Teams Scrubber Machine Tender Relationship Specialty Start Date End Date Allyson Avery APRN [facility] [address] [address] PCP - General Internal Medicine 07/22/23 documented as of this encounter
--- OUTSIDE RECORDS SUMMARY | 2025-05-06 10:03 | XMS_ITS | Encounter Summary ---
Author Organization [employer] ([place], [place], [place], [place]) Address [address] [place] [address] Care Team Providers Care Nursing Information Systems Coordinator Name Role Phone Allyson Avery APRN Primary Care Provider Encounter Details Date Type Department Care Team (Late st Contact Info) Description 03/23/2020 Transcribed Document [facility] [place] Family Medicine [address] [place] [address] ProviderTatiana MD [address] [place] [address] Social History Tobacco Use Types Packs/Day Years [...] 03/23/2020 17:55 EDT Electronically signed by Angel [facility] Conversion Harbor Boat Pilot Cerner at 12/20/2022 12:30 PM CDT documented in this encounter Plan of Treatment Not on file documented as of this encounter Visit Diagnoses Not on filedocumented in this encounter Care Teams Nursing Information Systems Coordinator Relationship Specialty Start Date End Date Allyson Avery, YOKO [address] [place] [address] PCP - General Nurse Practitioner 02/06/23 documented as of this encounter
--- OUTSIDE RECORDS SUMMARY | 2025-05-06 10:03 | XMS_ITS | Encounter Summary ---
Author Organization [employer] ([place], [place], [place], [place]) Address [address] [place] [address] Care Team Providers Care Sugar Cane Grower Name Role Phone Karlene Avery APRN Primary Care Provider Encounter Details Date Type Department Care Team (Late st Contact Info) Description 03/23/2020 Transcribed Document [facility] [place] Family Medicine [address] [place] [address] ProviderTatiana MD [address] [place] [address] Social History Tobacco Use Types Packs/Day Years Used Date Smoking Tobacco: Never Assessed Sex and Gender Information Value Date Recorded Sex Assigned at Not on file Legal Sex Male 5:33 PM CDT Gender Identity Not on file Sexual Orientation Not on file documented as of this encounter Miscellaneous Notes * Cerner Conversion Note - Tatiana ProviderMD - 03/23/2020 6:31 PM CDT [facility] [place] [address] PAT MENCHACA :1940 Visit Time:03/23/2020 Your Visit Summary Your Care Team Admitting Physician - DUANE JIMENEZ MD-CAR Attending Physician - DUANE JIMENEZ MD-CAR Primary Care Physician - KARLENE AVERY APRN-[facility] Referring Physician - DUANE JIMENEZ MD-CAR [...] When In 12 days 04/04/2020 EDT Where: [address] [place] [address] [place] [address]- Business (1) Medications What How [...] you are awake and alert. ??? Take shuv-xam-pghpfwe and prescription medicines only as told by [...] 06/09/2014 Document Revised: 01/21/2017 Document Reviewed: 12/08/2016 [employer] Interactive Patient Education ?? 2020 [employer] Pacemaker Implantation, Adult, Care After This [...] these instructions at home: Medicines ??? Take nouy-okd-akqipfk and prescription medicines only as told by [...] 03/08/2006 Document Revised: 08/19/2019 Document Reviewed: 05/31/2017 [employer] Interactive Patient Education ?? 2020 [employer] Fractured Pacemaker Lead Replacement The most [...] including vitamins, herbs, eye drops, creams, and ufwm-tyv-vjiglcl medicines. ??? Any problems you or family [...] 09/18/2006 Document Revised: 09/08/2019 Document Reviewed: 07/09/2017 [employer] Interactive Patient Education ?? 2020 [employer] Emergency Awareness and Preventative Care STROKE [...] Assistance with quitting is available by contacting 4-771-DBQY-NOW. This is a free resource providing counseling, support, and referral. Or you may contact your personal physician. [place] Suicide Prevention Lifeline: The National Suicide Prevention [...] between ( 10.0 and 20.0 ) Patient Name:PIEDAD PAT E I have received and understand this information and was given the opportunity to ask questions. Patient/Utility Agent Name: Patient/Utility Agent Signature: Relationship to Patient: Clinician/Hospital Utility Agent Signature: Date: documented in this encounter Plan of Treatment Not on file documented as of this encounter Visit Diagnoses Not on filedocumented in this encounter Care Teams Sugar Cane Grower Relationship Specialty Start Date End Date Hien Averye, TRANSPORT TECHNICIAN [address] [place] [address] PCP - General Nurse Practitioner 02/06/23 documented as of this encounter
--- OUTSIDE RECORDS SUMMARY | 2025-05-06 10:03 | XMS_ITS | Encounter Summary ---
Author Organization [employer] ([place], [place], [place], [place]) Address [address] [place] [address] Care Team Providers Care Stores Clerk Name Role Phone Karlene Avery APRN Primary Care Provider Encounter Details Date Type Department Care Team (Late st Contact Info) Description 03/17/2020 Transcribed Document [facility] [place] Family Medicine [address] [place] [address] ProviderTatiana MD [address] [place] [address] Social History Tobacco Use Types Packs/Day Years Used Date Smoking Tobacco: Never Assessed Sex and Gender Information Value Date Recorded Sex Assigned at Not on file Legal Sex Male 5:33 PM CDT Gender Identity Not on file Sexual Orientation Not on file documented as of this encounter Miscellaneous Notes * Cerner Conversion Note - Tatiana ProviderMD - 03/17/2020 10:05 AM CDT [facility] [address] PAT MENCHACA :1940 Visit Time:03/14/2020 Your Visit Summary Your Care Team Admitting Physician - ROMAN NGUYEN MD-INT GUANACO GUILLERMO MD-EMR PHY, UNKNOWN Attending Physician - ROMAN NGUYEN MD-GUANACO MCKEON MD-EMR Primary Care Physician - KARLENE AVERY APRN-FAM Referring Physician - SELF, REFERRED (REF), -UNK Your Diagnosis Atherosclerotic heart disease of eagle coronary artery without angina pectoris, Atherosclerotic heart disease of eagle coronary artery without angina pectoris Elevated troponin [...] EDT Comments 03/30 3pm Where: [address] [place] [address]- Business (1) Follow Up with KARLENE AVERY APRN-FAM When Within 1 week Where: [address] [place] [address]- Medications What How Much When Instructions Next Dose acetaminophen (Tylenol 325 mg oral tablet) 2 Tablet(s) Oral Every 4 Hours as needed for Pain (Mild 1-3) carvedilol (Coreg 25 mg oral tablet) 1 Tablet(s) Oral Two Times A Day Pickup at [facility] lisinopril (lisinopril 20 mg oral tablet) 1 Tablet(s) Oral Every Day This replaces Lisinopril/ HCTZ. Pickup at [facility] allopurinol (allopurinol 100 mg oral tablet) 1 [...] 2 Capsule(s) Oral Every Day Pharmacy Information [facility]: [address] [place] [address] [place], [place] [id number] [phone] Take your medications faithfully. Do NOT skip [...] these instructions at home: Medicines ??? Take lkzy-wxc-dowiqfv and prescription medicines only as told by [...] and water are not available, use hand building admin. ? Change your dressing as told by [...] your chest for several days. ??? Take yehj-brn-jwezkbu and prescription medicines only as told by [...] 05/13/2013 Document Revised: 07/20/2019 Document Reviewed: 07/20/2019 MarkITx Interactive Patient Education ?? 2020 Sumavision. lisinopril (lyse [place] oh pril) Prinivil, Qbrelis, [...] have an allergic reaction if you are -[place] Zealander. Call your doctor at once if you [...] may report side effects to FDA at 1-411-FQN-5389. What other drugs will affect lisinopril? Tell [...] drugs may affect lisinopril, including prescription and ihcz-vcp-pdsmdfd medicines, vitamins, and herbal products. Not all [...] to ensure that the information provided by [employer]. ('Multum') is accurate, up-to-date, and complete, but no guarantee is made to that effect. Drug information contained herein may be time sensitive. [employer] information has been compiled for use by healthcare practitioners and consumers in the [place] and therefore [employer] does not warrant that uses outside of the [place] are appropriate, unless specifically indicated otherwise. [employer] drug information does not endorse drugs, diagnose patients or recommend therapy. Joota drug information is an informational resource designed [...] effective or appropriate for any given patient. [employer] does not assume any responsibility for any aspect of healthcare administered with the aid of information [employer] provides. The information contained herein is not intended to cover all possible uses, directions, precautions, warnings, drug interactions, allergic reactions, or adverse effects. If you have questions about the drugs you are taking, check with your doctor, nurse or pharmacist. Copyright 2635-2986 [employer]. Version: 15.03. Revision Date: 06/23/2019. carvedilol (BRIAN [...] may report side effects to FDA at 9-673-AYJ-0162. What other drugs will affect carvedilol? Sometimes it is not safe to use certain medications at the same time. Some drugs can affect your blood levels of other drugs you take, which may increase side effects or make the medications less effective. Other drugs may affect carvedilol, including prescription and fyee-fzq-hibxppb medicines, vitamins, and herbal products. Tell your [...] to ensure that the information provided by [employer]. ('Multum') is accurate, up-to-date, and complete, but no guarantee is made to that effect. Drug information contained herein may be time sensitive. Apptera information has been compiled for use by healthcare practitioners and consumers in the [place] and therefore [employer] does not warrant that uses outside of the [place] are appropriate, unless specifically indicated otherwise. [employer] drug information does not endorse drugs, diagnose patients or recommend therapy. [employer] drug information is an informational resource designed [...] effective or appropriate for any given patient. [employer] does not assume any responsibility for any aspect of healthcare administered with the aid of information [employer] provides. The information contained herein is not intended to cover all possible uses, directions, precautions, warnings, drug interactions, allergic reactions, or adverse effects. If you have questions about the drugs you are taking, check with your doctor, nurse or pharmacist. Copyright 5854-3395 [employer]. Version: 16.01. Revision Date: 12/25/2018. Emergency Awareness [...] Assistance with quitting is available by contacting 0-272-BUZINOW. This is a free resource providing counseling, [...] range between ( 0.0 and 7.0 ) [place] #: 0.41 K/uL -- Normal range between ( 0.16 and 1.00 ) Eos #: 0.16 x10(3)/uL -- Normal range between ( 0.00 and 0.80 ) [place] %: 10.1 % -- Normal range between [...] ) Urine Bilirubin Dipstick: Negative Urine Specific [place]: 1.021 -- Normal range between ( 1.005 and 1.030 ) Urine Type.: [facility] General Chemistry 03/16/2020 0:17 AM Creatinine Level: [...] EC Echo Complete: EC Echo Complete Patient Name:PAT MENCHACA I have received and understand this information and was given the opportunity to ask questions. Patient/Drafter Topographical Name: Patient/Drafter Topographical Signature: Relationship to Patient: Clinician/Hospital Drafter Topographical Signature: Date: documented in this encounter Plan of Treatment Not on file documented as of this encounter Visit Diagnoses Not on filedocumented in this encounter Care Teams Stores Clerk Relationship Specialty Start Date End Date Karlene Avery, PHYTOPATHOLOGIST [address] [address] PCP - General Nurse Practitioner 02/06/23 documented as of this encounter
--- OUTSIDE RECORDS SUMMARY | 2025-05-06 10:03 | XMS_ITS | Encounter Summary ---
Author Organization [employer] ([place], [place], [place], [place]) Address [address] [place] [address] Care Team Providers Care X Ray Service Engineer Name Role Phone Allyson Avery APRN Primary Care Provider Encounter Details Date Type Department Care Team (Late st Contact Info) Description 03/16/2020 Transcribed Document [facility] [place] Family Medicine [address] [place] [address] ProviderTatiana MD [address] [place] [address] Social History Tobacco Use Types Packs/Day Years [...] SHEENAGH E OTR/L - 03/16/2020 14:05 EDT Electronically signed by Aruna Ortiz Conversion [employer] Media Specialist Cerner at 12/20/2022 12:32 PM CDT documented in this encounter Plan of Treatment Not on file documented as of this encounter Visit Diagnoses Not on filedocumented in this encounter Care Teams X Ray Service Engineer Relationship Specialty Start Date End Date Allyson Avery, YOKO [address] [phone] PCP - General Nurse Practitioner 02/06/23 documented as of this encounter
--- OUTSIDE RECORDS SUMMARY | 2025-05-06 10:03 | XMS_ITS | Clinical Summary ---
Author Organization [employer] ([place], [place], [place], [place]) Address [address] [place] [address] Care Team Providers Care Flight Security Specialist Name Role Phone Allyson Avery APRN Primary Care Provider [phone] Allergies No known active allergies Medications aspirin 81 MG EC tablet Take 1 tablet (81 mg total) by mouth daily. Active allopurinoL (ZYLOPRIM) 100 MG tablet Take by mouth daily. Active amiodarone (PACERONE) 200 MG tablet Take 1 tablet (200 mg total) by mouth daily. 02/26/2024 Active carvediloL (COREG) 12.5 MG tablet Take 1 tablet (12.5 mg total) by mouth 2 (two) times daily. 10/19/2024 Active ferrous sulfate 325 (65 FE) MG tablet Take 1 tablet (325 mg total) by mouth. Active lisinopriL (ZESTRIL) 10 MG tablet Take 1 tablet (10 mg total) by mouth daily. Active memantine (NAMENDA) 5 MG tablet Take 1 tablet (5 mg total) by mouth 2 (two) times daily. 02/26/2024 Active methylsulfonylme marcelino 1,000 mg cap Take 1,000 mg by mouth. Active fish oil-omega-3 fatty acids 300-1,000 mg capsule Take 2,400 mg by mouth. Active Trulance 3 mg tab Take 1 tablet by mouth daily. 09/21/2024 Active rosuvastatin (CRESTOR) 40 MG tablet Take 1 tablet (40 mg total) by mouth once a week. 05/18/2024 Active albuterol 90 mcg/actuation inhaler Inhale by mouth every 6 (six) hours as needed for wheezing. Active clopidogreL (PLAVIX) 75 mg tablet Take 1 tablet (75 mg total) by mouth daily Look-heather e/Sound-ali ke medication* *. Active multivitamin per tablet Take 1 tablet by mouth daily. Active levothyroxine (SYNTHROID) 75 MCG tablet daily. Active spironolactone (ALDACTONE) 25 MG tablet 10/09/2023 Active docusate calcium (SURFAK) 240 mg capsule Take 300 mg by mouth. Active Social History Tobacco Use Types Packs/Day Years Used Date Smoking Tobacco: Never Smokeless Tobacco: Never Tobacco Cessation:Counseling Given: Not Answered Alcohol Use Standard Drinks/Week Comments Never 0 (1 standard drink = 0.6 oz pur e alcohol) Family and Community Support Answer Bernard e Recorded Help with Day to Day Activities Not on file 09/19/2023 Feeling Lonely or Isolated Not on file 09/19 Educational Attainment Answer Date Roque rded Speak language other than Namibian at home Not on file 09/19/2023 Want [...] - - Weight 73.9 kg (163 lb) 10/22/2024 9:52 AM EST Height 175.3 cm (5' 9 ) 10/22/2024 9:52 AM EST Body Mass Index 24.07 10/22/2024 9:52 AM EST Plan of Treatment Health Maintenance Due Date Last Done Comments Depression Screening (12+) 1952 Pneumococcal 50+ years (1 of 1 - PCV) 1989 Shingles Vaccine (Zoster) (1 of 2) 1989 Medicare Initial AWV G0438 10/04/2005 Respiratory Syncytial Virus (RSV) Adult or (1 - 1-dose 75+ series) 2014 COVID-19 VACCINE ( season) 2024 10/02/2021, 12/02/2020, 11/03/2020 Falls Risk Screening 09/02/2024 Influenza Vaccine (#1) 2025 Tobacco Cessation Counseling and Screening (12+) 10/22/2025 10/22/2024 DTAP/TDAP/TD VACCINES (2 - T d or Tdap) 04/18/2032 04/18/2022 Insurance [place]IC[place] [address] [place] [address] Care Teams Flight Security Specialist Relationship Specialty Start Date End Date Allyson Avery APRN [address] [address] PCP - General Nurse Practitioner 02/06/23
--- OUTSIDE RECORDS SUMMARY | 2025-05-06 10:03 | XMS_ITS | Encounter Summary ---
Author Organization [employer] ([place], [place], [place], [place]) Address [address] [place] [address] Care Team Providers Care Benzene Washer Operator Name Role Phone Allyson Avery APRN Primary Care Provider Encounter Details Date Type Department Care Team (Late st Contact Info) Description 03/23/2020 Transcribed Document [facility] [place] Family Medicine [address] [place] [address] ProviderTatiana MD [address] [place] [address] Social History Tobacco Use Types Packs/Day Years [...] Source : Measured Height Entry Format : [place] Height, Feet : 5 ft(Converted to: 152 cm, 60 Inch) Height, Inches : 9 Inch(Converted to: 0 ft 9 Inch, 22.86 cm) Clinical Height : 175.26 cm Weight Source : Standing scale Weight Entry Format : [place] Clinical Dosing Weight : 76.36 kg Weight, Pounds : 168 lb Body Surface Area (BSA) : 1.92 m2 Body Mass Index : 24.9 kg/m2 (HI) [place] Body Weight : 70 kg JACE WOOD [...] JACE WOOD RN - 03/23/2020 15:21 EDT [place] Suicide Severity Rating Scale (C-SSRS) CSSRS Past [...] Info Legal Guardian : No Support Person/Patient Paint Department Supervisor : Yes Support Person/Pt Rep Name : Jesika Villar Contact Password : Melissa Support Person/Pt Rep Contact Information : [phone] Want Family/Rep/Phys Notified of Admit : No Emergency Contact #1 : Megan Emergency Contact #1 Emergency Contact #1 Relationship : daughter Emergency Contact #2 : z Emergency Contact #2 Phone Number : z Emergency Contact #2 Relationship : z Primary Language : Venezuelan Preferred Communication Mode : Verbal Communication Barrier : None Human Resource Manager Needed : No JACE WOOD RN [...] Score : 22 JACE WOOD RN - 7/22/2020 15:21 EDT Pain Assessment Pain Assessment : [...] Scale Risk Level : 25-45 Medium Risk [place] Fall Interventions : Adequate lighting, Assistive devices [...] on filedocumented in this encounter Care Teams Benzene Washer Operator Relationship Specialty Start Date End Date Allyson Avery APRN [address] [address] PCP - General Nurse Practitioner 02/06/23 documented as of this encounter
--- OUTSIDE RECORDS SUMMARY | 2025-05-06 10:03 | XMS_ITS | Encounter Summary ---
Author Organization [employer] ([place], [place], [place], [place]) Address [address] [place] [address] Care Team Providers Care Truck Crane Operator Helper Name Role Phone Allyson Avery APRN Primary Care Provider Encounter Details Date Type Department Care Team (Late st Contact Info) Description 03/23/2020 Transcribed Document [facility] [place] [facility] [place] [address] ProviderTatiana MD [address] [place] [address] Social History Tobacco Use Types Packs/Day Years Used Date Smoking Tobacco: Never Assessed Sex and Gender Information Value Date Recorded Sex Assigned at Not on file Legal Sex Male 5:33 PM CDT Gender Identity Not on file Sexual Orientation Not on file documented as of this encounter Miscellaneous Notes * Cerner Conversion Note - Historical ProviderMD - 03/23/2020 4:49 PM CDT DATE OF [...] home remote monitoring, and device clinic followup. /[id number] Parish Pérez MD TCR/AQ / TCR / MODL /[id number] documented in this encounter Plan of Treatment Not on file documented as of this encounter Visit Diagnoses Not on filedocumented in this encounter Care Teams Truck Crane Operator Helper Relationship Specialty Start Date End Date Allyson Avery APRN [address] [address] PCP - General Nurse Practitioner 02/06/23 documented as of this encounter
--- OUTSIDE RECORDS SUMMARY | 2025-05-06 10:03 | XMS_ITS | Encounter Summary ---
[facility] Organization [facility] Address [address] [place] [address] Care Team Providers Care Spreader Box Operator Name Role Phone Allyson Avery APRN Primary Care Provider [phone] Reason for Visit * Reason Comments Med Refill Encounter Details Date Type Department Care Team (Late st Contact Info) Description 05/01/2025 Refill [facility] [address] [address] Mansoor Silva MD [address] [facility] [address] [place] [address] Med Refill Social History Tobacco Use Types [...] Description 07/20/2025 3:45 PM EST Office Visit [facility] [address] [facility] [address] [place] [address] Rosa De Dios MD [address] [facility] [address] [place] [address] 07/26/2025 2:00 PM EST Office Visit [facility] [address] [facility] [address] [place] [address] Monica Quintero, DNP, FLATWORK IRONER [address] [facility] [address] [place] [address] 10/28/2025 1:30 PM EST Office Visit [facility] [address] [facility] [address] [place] [address] Mansoor Silva MD [address]20 [facility] [address] [place] [address] documented as of this encounter Visit Diagnoses Not on filedocumented in this encounter Care Teams Spreader Box Operator Relationship Specialty Start Date End Date Allyson Avery APRN [address] [place] [address] PCP - General Internal Medicine 07/22/23 documented as of this encounter
--- OUTSIDE RECORDS SUMMARY | 2025-05-06 10:03 | XMS_ITS | Referral Summary ---
Author Organization [employer] ([place], [place], [place], [place]) Address [address] [place] [address] Care Team Providers Care Marble Mason Name Role Phone Allyson Avery APRN Primary Care Provider Allergies No known active allergies Medications aspirin [...] Date Roque rded Speak language other than Niuean at home Not on file 09/19/2023 Want [...] 10/22/2024 9:52 AM EST Plan of Treatment Not on file Insurance MEDICARE PART A B SUPP Care Teams Marble Mason Relationship Specialty Start Date End Date Allyson Avery, YOKO [address] [id number] PCP - General Nurse Practitioner 02/06/23
--- OUTSIDE RECORDS SUMMARY | 2025-05-06 10:03 | XMS_ITS | Encounter Summary ---
Author Organization [employer] ([place], [place], [place], [place]) Address [address] [place] [address] Care Team Providers Care Lining Strap Closer Name Role Phone Karlene Avery APRN Primary Care Provider Encounter Details Date Type Department Care Team (Late st Contact Info) Description 03/23/2020 Transcribed Document [facility] Family Medicine [address] [place] [address] ProviderTatiana MD [address] [place] [address] Social History Tobacco Use Types Packs/Day Years Used Date Smoking Tobacco: Never Assessed Sex and Gender Information Value Date Recorded Sex Assigned at Not on file Legal Sex Male 5:33 PM CDT Gender Identity Not on file Sexual Orientation Not on file documented as of this encounter Miscellaneous Notes * Cerner Conversion Note - Tatiana ProviderMD - 03/23/2020 5:56 PM CDT [facility] [place] [address] PAT MENCHACA :1940 Visit Time:03/23/2020 Your Visit Summary Your Care Team Admitting Physician - DUANE JIMENEZ MD-CAR Attending Physician - DUANE JIMENEZ MD-CAR Primary Care Physician - KARLENE AVERY APRN-[facility] Referring Physician - DUANE JIMENEZ MD-CAR Your [...] When In 12 days 04/04/2020 EDT Where: [address] [place] [address] [place] [address]- Business (1) Medications What How [...] you are awake and alert. ??? Take kfpn-kjb-lxxzmmn and prescription medicines only as told by [...] 06/09/2014 Document Revised: 01/21/2017 Document Reviewed: 12/08/2016 uberall Interactive Patient Education ?? 2020 [employer]erall Inc. Pacemaker Implantation, Adult, Care After This [...] these instructions at home: Medicines ??? Take tecd-ody-taryidl and prescription medicines only as told by [...] 03/08/2006 Document Revised: 08/19/2019 Document Reviewed: 05/31/2017 [employer]erall Interactive Patient Education ?? 2020 [employer] Inc. Fractured Pacemaker Lead Replacement The most [...] including vitamins, herbs, eye drops, creams, and ewxm-hgp-qazklal medicines. ??? Any problems you or family [...] 09/18/2006 Document Revised: 09/08/2019 Document Reviewed: 07/09/2017 ElseAnthem Digital Media Interactive Patient Education ?? 2020 [employer]erall Inc. Emergency Awareness and Preventative Care STROKE [...] Assistance with quitting is available by contacting 2-520-SYBV-NOW. This is a free resource providing counseling, support, and referral. Or you may contact your personal physician. [place] Suicide Prevention Lifeline: The National Suicide Prevention [...] was given the opportunity to ask questions. Patient/Movie Shot Camera Operator Name: Patient/Movie Shot Camera Operator Signature: Relationship to Patient: Clinician/Hospital Movie Shot Camera Operator Signature: Date: documented in this encounter Plan of Treatment Not on file documented as of this encounter Visit Diagnoses Not on filedocumented in this encounter Care Teams Lining Strap Closer Relationship Specialty Start Date End Date Hien Averye, PACKER INSULATION [address] [place] [address] PCP - General Nurse Practitioner 02/06/23 documented as of this encounter
== END 2025-05-04 23:59 | disposition home or self-care (01) ==
LOC: LAB.DROPOF 05-06 09:55
PROVIDERS: PCP Nurse Practitioner Family; Visit Provider Nurse Practitioner Family
DX: D50.9 Iron deficiency anemia, unspecified (principal); I10 Essential (primary) hypertension; E11.9 Type 2 diabetes mellitus without complications; R79.89 Other specified abnormal findings of blood chemistry; E03.9 Hypothyroidism, unspecified; E78.5 Hyperlipidemia, unspecified; R05.1 Acute cough
CPT/HCPCS: 80053; 80061; 82533; 82728; 83036; 83735; 84443; 85025; 87631

== ENCOUNTER 2025-05-17 14:33 | Outpatient (CLI) | payer MEDICARE, SELFPAY ==
--- OUTSIDE RECORDS SUMMARY | 2025-03-25 13:00 | XMS_ITS | Encounter Summary ---
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 Hypothyroidism, unspecified Allyson Avery APRN [address] [address] Phone: tel: fax: [facility] [address] [address] Phone: tel: fax: Referral ID Status Reason Start Date Expiration Date Visits Re quested Visits Authorized [id number] Closed 01/11/2025 04/12/2026 1 1 Encounter Details Date Type Department Care Team (Late Contact Info) Description 03/25/2025 1:00 PM EDT Office Visit [facility] [address] [phone] Rosa De Dios MD [address] [phone] Hypothyroidism, unspecified type (Primary Dx); Elevated cortisol level; High serum renin; High catecholamines Social History Tobacco Use Types Packs/Day Years Used Date Smoking Tobacco: Never Smokeless Tobacco: Never Tobacco Cessation:Counseling Given: Not Answered Alcohol Use Standard Drinks/Week Comments Never 0 (1 standard drink = 0.6 oz pur e alcohol) AUDIT-C Answer Date Recorded Q1: How often do you have a drink containing alc ohol? Never 03/17/2021 Average Number of Drinks Not on file 021 Frequency of Binge Drinking Not on file 03/02 Abuse Screen Answer Date Recorded Feels Unsafe at Home or Work/School no 12/23/2024 Feels Threatened by Someone no 12/02 Does Anyone Try to Keep You From Having Contact with Others or Doing Things Outside Your Home? no 12/23/2024 Physical Signs of Abuse Present no 12/23/2024 Sex and Gender Information Value Date Recorded Sex Assigned at Male 03/18/2025 3:25 PM EDT Legal Sex Male 1:25 PM EDT Gender Identity Not on file Sexual Orientation Not on file documented as of this encounter Last Filed Vital Signs Vital Sign Reading Time Taken Comments Blood Pressure 144/80 03/25/2025 12:58 PM EDT Pulse 71 03/25/2025 12:58 PM EDT Temperature - - Respiratory Rate - - Oxygen Saturation 97% 03/25/2025 12:58 PM EDT Inhaled Oxygen Concentration - - Weight 73.2 kg (161 lb 6.4 oz) 03/25/2025 12:58 PM EDT Height 177.8 cm (5' 10 ) 03/25/2025 12:58 PM EDT Body Mass Index 23.16 03/25/2025 12:58 PM EDT documented in this encounter Progress Notes * Rosa De Dios MD - 03/25/2025 1:00 PM EDT Chief Complaint Patient presents with Adrenomedullary hyperfunction New patient Referred by: Allyson Avery APRN Hypothyroidism Other specified abnormal findings of blood New patient who is being seen in consultation regarding abnormal labs at the request of Allyson Avery APRN HPI Meet Menchaca is a 84 y.o. male who presents for evaluation of abnormal labs. Patient presents with his son. Patient presents to discuss laboratory evaluation from December 2024 which showed abnormalities of multiple hormones including renin, epinephrine, norepinephrine, cortisol. Per report, at the time of lab draw patient had been having significant issues with hypotension. Subsequently cardiology discontinued all of his blood pressure medications. He did have some increase in blood pressure following discontinuation and thus has now resumed medication at a lower dose. He is currently taking spironolactone, lisinopril. He is taking carvedilol only on an as-needed basis. He reports he is no longer having episodes of hypotension. Patient reports some fatigue but states he generally feels well. He denies any recent steroid exposure. He has not had any follow-up laboratory evaluation. Patient does have a history of hypothyroidism. He does report that primary care reduce levothyroxine to 50 mcg daily approximately 2 months ago. Past Medical History: Diagnosis Date Arthritis CAD (coronary artery disease) Diabetes Gout HL (hearing loss) Hypertension Kidney stones Memory loss Past Surgical History: Procedure Laterality Date CARDIAC CATHETERIZATION CARDIAC DEFIBRILLATOR PLACEMENT 2019 CAROTID STENT 2016 CORONARY ARTERY BYPASS GRAFT 1995 CORONARY STENT PLACEMENT FOREARM SURGERY INSERT / REPLACE / REMOVE PACEMAKER TOOTH EXTRACTION WRIST SURGERY Family History Problem Relation Age of Onset Heart disease Father No Known Problems Sister Heart disease Brother Heart disease Sister Social History Socioeconomic History Marital status: Tobacco Use Smoking status: Never Smokeless tobacco: Never Vaping Use Vaping status: Never Used Substance and Sexual Activity Alcohol use: Never Drug use: Never Sexual activity: Not Currently Partners: Female No Known Allergies Current Outpatient Medications on File Prior to Visit Medication Sig Dispense Refill allopurinol (ZYLOPRIM) 100 MG tablet Take 1 tablet by mouth Daily. Arginine 1000 MG tablet Take 1,000 mg by mouth Daily. aspirin 81 MG EC tablet Take 1 tablet by mouth Daily. B Complex Vitamins (VITAMIN B COMPLEX PO) Take by mouth Daily. carvedilol (COREG) 12.5 MG tablet Take 1 tablet by mouth 2 (Two) Times a Day With Meals. (Patient taking differently: Take 1 tablet by mouth As Needed.) clopidogrel (PLAVIX) 75 MG tablet TAKE ONE TABLET BY MOUTH DAILY 90 tablet 3 docusate sodium (COLACE) 100 MG capsule Take 1 capsule by mouth 2 (Two) Times a Day. levothyroxine (SYNTHROID, LEVOTHROID) 75 MCG tablet Take 50 mcg by mouth Daily. linaclotide (LINZESS) 290 MCG capsule capsule Take 1 capsule by mouth. Every other day lisinopril (PRINIVIL,ZESTRIL) 10 MG tablet Take 1 tablet by mouth Daily. memantine (NAMENDA) 10 MG tablet Take 1 tablet by mouth Daily. 60 tablet 5 Methylsulfonylmethane (MSM PO) Take 1,000 mg by mouth 2 (two) times a day. multivitamin (THERAGRAN) tablet tablet Take 1 tablet by mouth 2 (two) times a day. ranolazine (RANEXA) 500 MG 12 hr tablet Take 1 tablet by mouth 2 (Two) Times a Day. rosuvastatin (CRESTOR) 40 MG tablet TAKE 1 TABLET BY MOUTH ONCE WEEKLY 12 tablet 3 spironolactone (ALDACTONE) 25 MG tablet Take 1 tablet by mouth Daily. Trulance 3 MG tablet Take 1 tablet by mouth Every Other Day. ferrous sulfate 324 (65 Fe) MG tablet delayed-release EC tablet Take 1 tablet by mouth Daily With Breakfast. (Patient not taking: Reported on 03/25/2025) furosemide (LASIX) 20 MG tablet Take 1 tablet by mouth Daily. (Patient not taking: Reported on 03/25/2025) 90 tablet 0 No current facility-administered medications on file prior to visit. Review of Systems Constitutional: Positive for fatigue. HENT: Positive for hearing loss and rhinorrhea. Cardiovascular: Negative for palpitations. Gastrointestinal: Positive for constipation. Neurological: Negative for dizziness. Psychiatric/Behavioral: Positive for decreased concentration. Vitals: 03/25/25 1258 BP: 144/80 BP Location: Left arm Patient Position: Sitting Cuff Size: Adult Pulse: 71 SpO2: 97% Weight: 73.2 kg (161 lb 6.4 oz) Height: 177.8 cm (70 ) Body mass index is 23.16 kg/m??. Physical Exam Vitals reviewed. Constitutional: General: He is not in acute distress. Cardiovascular: Rate and Rhythm: Normal rate and regular rhythm. Pulmonary: Effort: Pulmonary effort is normal. Breath sounds: Normal breath sounds. Neurological: Mental Status: He is alert. Psychiatric: Mood and Affect: Mood and affect normal. Behavior: Behavior is cooperative. Labs/Imaging Labs dated 12/11/2024 TSH 0.38, low Plasma renin 38.76 Random cortisol 19.7 drawn at 10:28 AM, upper limit of normal 19.4 Plasma norepinephrine 2398, elevated Plasma epinephrine 99.3, elevated ACTH 26.1 Assessment and Plan Diagnoses and all orders for this visit: 1. Hypothyroidism, unspecified type (Primary) - TSH - T4, Free Labs from December 2024 with low TSH. Levothyroxine was subsequently reduced to 50 mcg daily. Patient is taking this regularly has been taking this dose for approximately 2 months. Update labs today and adjust medication as clinically indicated. 2. Elevated cortisol level - Cortisol - AM; Future - Dexamethasone Level, Serum; Future 3. High serum renin - Aldosterone / Renin Ratio - Basic Metabolic Panel 4. High catecholamines - Metanephrines, Frac. Free, Plasma - Catecholamines, Fractionated, Plasma Laboratory abnormalities were reviewed with patient. Laboratory evaluation was completed in the setting of significant hypotension per report. We did review expected physiologic changes in response to hypotension. Patient has since had changes to blood pressure medications and is no longer experiencing routine hypotension. He has not had follow-up laboratory evaluation since resolution of hypotension. We discussed the potential that abnormalities noted may have been an appropriate physiologic response. Plan to update laboratory evaluation and determine next steps. We did discuss potential impact of spironolactone and lisinopril on renin/aldosterone. Patient will complete dexamethasone suppression testing locally. Other orders - dexAMETHasone (DECADRON) 1 MG tablet; Take 1 tablet by mouth 1 (One) Time for 1 dose. Take at 11 PM night before lab draw at 8 AM Dispense: 1 tablet; Refill: 0 Patient was given orders for labs to be completed outside of [facility]. Patient instructed to contact clinic if they have not heard from this office regarding results within 1 week of lab draw to ensure that results were received by this office. Follow-up will be determined after review of labs. The patient was instructed to contact the clinicwith any interval questions or concerns. Electronically signed by: Rosa De Dios MD [facility] Dictation documented in this encounter Plan of Treatment Upcoming Encounters Date Type Department Care Team (Late st Contact Info) Description 07/20/2025 3:45 PM EST Office Visit [facility] [address] [place] [phone] Rosa De Dios MD [address] [facility] [address] [place] [address] 07/26/2025 2:00 PM EST Office Visit [facility] [address] [place] [address] Monica Quintero, DNP, [employer] [address] [place] [address] 10/28/2025 1:30 PM EST Office Visit [facility] [address] [facility] [address] [place] [phone] Mansoor Silva MD [address] [facility] [address] [place] [address] Scheduled Orders Name Type Priority Associated Diagnoses Orde r Schedule Cortisol - AM Lab Routine Elevated cortisol level Expected: 07/30/2025 (Approximate), Expires: 06/25/2026 Dexamethasone Level, Serum Lab Routine Elevated cortisol level Expected: 07/30/2025 (Approximate), Expires: 06/25/2026 documented as of this encounter Procedures Procedure Name Priority Date/Time Associated Diagnosis Comments METANEPHRINES, FRAC. FREE, PLASMA Routine 03/25/2025 1:40 PM EDT High catecholamines ALDOSTERONE/RENIN RATIO Routine 03/25/2025 1:40 PM EDT High serum renin CATECHOLAMINES, FRACTIONATED, PLASMA Routine 03/25/2025 1:40 PM EDT High catecholamines TSH Routine 03/25/2025 1:40 PM EDT Hypothyroidism, unspecified type T4, FREE Routine 03/25/2025 1:40 PM EDT Hypothyroidism, unspecified type BASIC METABOLIC PANEL Routine 03/25/2025 1:40 PM EDT High serum renin documented in this encounter Results * (ABNORMAL) Catecholamines, Fractionated, Plasma (03/25/2025 1:40 PM EDT) Norepinephrine 1553(H) 115 - 524 pg/mL 03/31/2025 10:10 AM EDT [facility] Epinephrine 116.8(H) 0.0 - 55.4 pg/mL 03/31/2025 10:10 AM EDT [facility] Dopamine 28.7 0.0 - 36.7 pg/mL 03/31/2025 10:10 AM EDT [facility] Comment: Catecholamines, Plasma reference intervals based on patient in supine position for at least 20 minutes. Blood Venipuncture / Unknown 03/25/2025 1:40 PM EDT 03/25/2025 1:41 PM EDT Narrative [facility] - 03/31/2025 10:10 AM EDT Test(s) [id number]-Pewfflhgigyues; [id number]-Lrnritjpsor; [id number]-Zhxejkpj was developed and its performance characteristics determined by [facility]. It has not been cleared or approved by the Food and Drug Administration. Performed at: - [address] [id number] City Secretary: Van Dang MD, Phone: [phone] us Rosa De Dios MD LAB BLOOD ORDERABLES Final Resu lt [facility] [address] [place] [address], * Metanephrines, Frac. Free, Plasma (03/25/2025 1:40 PM EDT) Normetanephrine 42.9 0.0 - 297.2 pg/mL 04/06/2025 9:08 PM EDT [facility] Metanephrine <25.0 0.0 - 88.0 pg/mL 04/06/2025 9:08 PM EDT [facility] Blood Venipuncture / Unknown 03/25/2025 1:40 PM EDT 03/25/2025 1:41 PM EDT Narrative [facility] - 04/06/2025 9:08 PM EDT Test(s) [id number]-Uwgiozhtyhuzzug, Pl; [id number]-Cirhxolkwjgn, Pl was developed and its performance characteristics determined by [facility]. It has not been cleared or approved by the Food and Drug Administration. Performed at: 01 - [address] [id number] City Secretary: Van Dang MD, Phone: [phone] us Rosa De Dios MD LAB BLOOD ORDERABLES Final Resu lt [facility] [address] [place] [address], * (ABNORMAL) Basic Metabolic Panel (03/25/2025 1:40 PM EDT) Glucose 130(H) 65 - 99 mg/dL 03/25/2025 11:43 PM EDT [facility] BUN 33.0(H) 8.0 - 23.0 mg/dL 03/25/2025 11:43 PM EDT [facility] Creatinine 1.14 0.76 - 1.27 mg/dL 03/25/2025 11:43 PM EDT [facility] Sodium 140 136 - 145 mmol/L 03/25/2025 11:43 PM EDT [facility] Potassium 4.8 3.5 - 5.2 mmol/L 03/25/2025 11:43 PM EDT [facility] Chloride 102 98 - 107 mmol/L 03/25/2025 11:43 PM EDT [facility] CO2 26.2 22.0 - 29.0 mmol/L 03/25/2025 11:43 PM EDT [facility] Calcium 10.5 8.6 - 10.5 mg/dL 03/25/2025 11:43 PM EDT [facility] BUN/Creatinine Ratio 28.9(H) 7.0 - 25.0 03/25/2025 11:43 PM EDT [facility] Anion Gap 11.8 5.0 - 15.0 mmol/L 03/25/2025 11:43 PM EDT [facility] eGFR 63.0 >60.0 mL/min/1.7 3 03/25/2025 11:43 PM EDT [facility] Blood Structure of left upper limb / Unknown Venipuncture / Unknown 03/25/2025 1:40 PM EDT 03/25/2025 1:41 PM EDT [facility] - 03/25/2025 11:43 PM EDT GFR Categories in Chronic Kidney Disease (CKD) GFR Category GFR (mL/min/1.73) Interpretation G1 90 or greater Normal or high (1) G2 60-89 Mild decrease (1) G3a 45-59 Mild to moderate decrease G3b 30-44 Moderate to severe decrease G4 15-29 Severe decrease G5 14 or less Kidney failure (1)In the absence of evidence of kidney disease, neither GFR category G1 or G2 fulfill the criteria for CKD. eGFR calculation 2020 CKD-EPI creatinine equation, which does not include race as a factor us Rosa De Dios MD LAB BLOOD ORDERABLES Final Resu lt [facility]
[address] [place] [address], [place] [phone] * Aldosterone / Renin Ratio (03/25/2025 1:40 PM EDT) Aldosterone 7.0 0.0 - 30.0 ng/dL 03/30/2025 11:10 AM EDT [facility] Renin Activity 1.723 0.167 - 5.380 ng/mL/hr 03/30/2025 11:10 AM EDT [facility] Aldosterone/Mer n Ratio 4.1 0.0 - 30.0 03/30/2025 11:10 AM EDT [facility] Comment:Units: ng/dL per ng/ mL/hr Blood Venipuncture / Unknown 03/25/2025 1:40 PM EDT 03/25/2025 1:41 PM EDT [facility]ative [facility] - 03/30/2025 11:10 AM EDT Test(s) [id number]-Ekmiykbffkn; [id number]-Wsqhh Activity, Plasma was developed and its performance characteristics determined by [facility]. It has not been cleared or approved by the Food and Drug Administration. Performed at: 01 - [address] [id number] City Secretary: Van Dang MD, Phone: [phone] us Rosa De Dios MD LAB BLOOD ORDERABLES Final Resu lt [facility] [address] [place] [address], [place] [phone] * T4, Free (03/25/2025 1:40 PM EDT) Free T4 1.25 0.92 - 1.68 ng/dL 03/25/2025 11:44 PM EDT [facility] Blood Structure of left upper limb / Unknown Venipuncture / Unknown 03/25/2025 1:40 PM EDT 03/25/2025 1:41 PM EDT us Rosa De Dios MD LAB BLOOD ORDERABLES Final Resu lt Performing Organization Address [facility] [address]/ZIP Co de Phone Number [facility]
[address] [place] [address], * TSH (03/25/2025 1:40 PM EDT) TSH 1.380 0.270 - 4.200 uIU/mL 03/25/2025 11:44 PM EDT [facility] Blood Structure of left upper limb / Unknown Venipuncture / Unknown 03/25/2025 1:40 PM EDT 03/25/2025 1:41 PM EDT us Rsoa De Dios MD LAB BLOOD ORDERABLES Final Resu lt [facility]
[address] [place] [address], documented in this encounter Visit Diagnoses Diagnosis Hypothyroidism, unspecified type- Primary Elevated cortisol level High serum renin High catecholamines documented in this encounter Care Teams Victim Advocate Relationship Specialty Start Date End Date Allyson Avery APRN [address] [place] [address] PCP - General Internal Medicine 07/22/23 documented as of this encounter
--- OUTSIDE RECORDS SUMMARY | 2025-05-17 14:37 | XMS_ITS | Encounter Summary ---
Author Organization [employer] ([place], [place], [place], [place]) Address [address] [place] [address] Care Team Providers Care Salesperson Corsets Name Role Phone Allyson Avery APRN Primary Care Provider [phone] Encounter Details Date Type Department Care Team (Late st Contact Info) Description 07/01/2019 Transcribed Document [facility] Family Medicine [address] [place] [address] ProviderTatiana MD [address] [place] [address] Social History Tobacco Use Types Packs/Day Years [...] On: 07/01/2019 3:24 EDT by Oriana Bautista, diesel truck crane operator Process Patient Disposition : Admit/Observe Personal Belongings [...] filedocumented in this encounter Care Teams Salesperson Corsets Relationship Specialty Start Date End Date Allyson Avery, MORTGAGE ASSISTANT [address] [address] PCP - General Nurse Practitioner 02/06/23 documented as of this encounter
--- OUTSIDE RECORDS SUMMARY | 2025-05-17 14:37 | XMS_ITS | Encounter Summary ---
Author Organization [employer] ([place], [place], [place], [place]) Address [address] [place] [address] Care Team Providers Care Complex Case Manager Name Role Phone Allyson Avery APRN Primary Care Provider Encounter Details Date Type Department Care Team (Late st Contact Info) Description 07/01/2019 Transcribed Document [facility] Family Medicine [address] [place] [address] ProviderTatiana MD [address] [place] [address] Social History Tobacco Use Types Packs/Day Years [...] PT : 78 yo male adm to [facility] earlier this AM with Dx of CHEST [...] Training Comment : no LOB noted ABRAHAM BUTSOS, PT - 07/01/2019 10:24 EDT Cognition Assessment, PT Orientation : Oriented x 4 Safety/Judgment Comment : good Follows Basic Command Assessment : yes Attention Assessment : Present Attention Assessment Comment : pt [place] ABRAHAM BUSTOS PT - 07/01/2019 10:24 EDT [...] ABRAHAM BUSTOS, PT - 07/01/2019 10:24 EDT [place] PT Charges PT Eval Low Complexity : 1 ABRAHAM BUSTOS, PT - 07/01/2019 10:24 EDT Electronically signed by [employer] [facility] Conversion Affiliate Marketing Specialist Cerner at 12/20/2022 12:27 PM CDT documented in this encounter Plan of Treatment Not on file documented as of this encounter Visit Diagnoses Not on filedocumented in this encounter Care Teams Complex Case Manager Relationship Specialty Start Date End Date Allyson Avery, YOKO [address] [place] [address] PCP - General Nurse Practitioner 02/06/23 documented as of this encounter
--- OUTSIDE RECORDS SUMMARY | 2025-05-17 14:37 | XMS_ITS | Encounter Summary ---
Author Organization [employer] ([place], [place], [place]) Address [address] [place] [address] Care Team Providers Care Strategic Consultant Name Role Phone Allyson Avery APRN Primary Care Provider Encounter Details Date Type Department Care Team (Late st Contact Info) Description 10/20/2024 Outside Orders [facility] Admitting [address] [place] [address] Allyson Avery APRN [address] [place] [address] [id number] Abnormal feces (Primary Dx) Social History Tobacco Use Types Packs/Day Years Used Date Smoking Tobacco: Never Assessed Family and Community Support Answer Bernard e Recorded Help with Day to Day Activities Not on file 09/19/2023 Feeling Lonely or Isolated Not on file 09/19 Educational Attainment Answer Date Roque rded Speak language other than Malagasy at home Not on file 09/19/2023 Want [...] Primary documented in this encounter Care Teams Strategic Consultant Relationship Specialty Start Date End Date Allyson Avery, JAVASCRIPT SOFTWARE ENGINEER [address] [phone] PCP - General Nurse Practitioner 02/06/23 documented as of this encounter
--- OUTSIDE RECORDS SUMMARY | 2025-05-17 14:37 | XMS_ITS | Clinical Summary ---
Author Organization [facility] Address [address] [place] [address] Care Team Providers Care Roller Repairer Name Role Phone Allyson Avery YOKO Primary Care Provider [phone] Allergies No known active allergies Medications fish [...] 03/16/20 Upgrade of his dual-chamber pacemaker to [facility] dual-chamber ICD Venous reflux 07/30/2023 07/30/2023 Chronic systolic congestive heart failure 202107/30/2023 Overview (07/30/2023): 06/29/21 Echo: LVEF 36-40%, grade II diastolic dysfunction, moderate MR, moderately reduced RVSF Hypothyroidism (acquired) 03/15/20212022 Cardiac pacemaker in situ 08/02/20172022 Sick sinus syndrome 07/05/2017 07/30/2023 Overview (07/30/2023): 03/16/20 Upgrade of his dual-chamber pacemaker to [facility] dual-chamber ICD Essential hypertension 01/16/2016 3 Peripheral [...] Description 08/09/2025 1:00 PM EST Office Visit [facility] [address] [place] [address] Heath Kaplan MD [address] [address] Health Maintenance Due Date Last Done Comments [facility]-Depression Screening 1940 [facility]-Medicare Annual Wellness (AWV) 1940 [facility]-/Child/Adol SDOH Screenings 1940 [facility]- SDOH Screenings 1957 [facility]-Adult SDOH Screenings 1957 [facility]-Pneumococcal Vaccine: 50+ Years (1 of 2 - PCV) 1958 05/22/2016 [facility]-Zoster Vaccines (1 of 2) 1989 [facility]-RSV Vaccine: 60+ Years or (1 - 1-dose 75+ series) 2014 [facility]-DTaP,Tdap,and Td Vaccines (1 - Tdap) 04/19/2022 04/18/2022 [id number] Vaccine (4 - season) 2025 10/02/2021, 12/02/2020, 11/03/2020 [facility]-Influenza Vaccine (#1) 05/03/202507/21, [...] age to complete this topic [place] [address] [facility] Care Teams Roller Repairer Relationship Specialty Start Date End Date Allyson Avery APRN [address] [place] [address] PCP - General 01/13/21
--- OUTSIDE RECORDS SUMMARY | 2025-05-17 14:37 | XMS_ITS | Encounter Summary ---
Author Organization [employer] ([place], [place], [place]) Address [address] [place] [address] Care Team Providers Care Marine Oil Terminal Superintendent Name Role Phone Allyson Avery YOKO Primary Care Provider Encounter Details Date Type Department Care Team (Late st Contact Info) Description 07/02/2019 Transcribed Document [facility] Radiology [address] [place] [address] Jf Gallagher MD [address] [place] [address] [address] [place] [address] Social History Tobacco Use Types Packs/Day Years [...] None Author: JF GALLAGHER MD-INT Subjective PCP: [facility] DOA: 07/01/2019 DOD: 07/02/2019 HPI: Patient admitted with chest pain, elevated troponin and 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 CODE STATUS: Full code CONSULTS: [facility] cardiology WORKUP / PROCEDURES: GALLBLADDER ULTRASOUND FINDINGS: [...] Results Review Radiology Results (Last 48 hours) [id number] -- 07/01/2019 01:59 CR Chest 1 Vw [...] pain with elevated troponin, likely non-ST elevation [place]? Followed by cardiology and cleared for discharge. [...] on filedocumented in this encounter Care Teams Marine Oil Terminal Superintendent Relationship Specialty Start Date End Date Allyson Avery, BOOKSTORE CLERK [address] [phone] PCP - General Nurse Practitioner 02/06/23 documented as of this encounter
--- OUTSIDE RECORDS SUMMARY | 2025-05-17 14:37 | XMS_ITS | Encounter Summary ---
Author Organization [employer] ([place], [place], [place]) Address [address] [place] [address] Care Team Providers Care Flag Car Driver Name Role Phone Allyson Avery APRN Primary Care Provider Encounter Details Date Type Department Care Team (Late st Contact Info) Description 07/01/2019 Transcribed Document [facility] [address] [place] [address] ProviderTatiana MD [address] [place] [address] Social History Tobacco Use Types Packs/Day Years [...] filedocumented in this encounter Care Teams Flag Car Driver Relationship Specialty Start Date End Date Allyson Avery APRN [address] [place] [address] PCP - General Nurse Practitioner 02/06/23 documented as of this encounter
--- OUTSIDE RECORDS SUMMARY | 2025-05-17 14:37 | XMS_ITS | Encounter Summary ---
Author Organization [employer] ([place], [place], [place], [place]) Address [address] [place] [address] Care Team Providers Care Cleaner Carpet And Upholstery Name Role Phone Peace Averynisaw BABCOCK Primary Care Provider [phone] Encounter Details Date Type Department Care Team (Late st Contact Info) Description 07/02/2019 Transcribed Document [facility] [place] [address] [place] [address] ProviderTatiana MD [address] [place] [address] Social History Tobacco Use Types [...] Polanco MD - 07/02/2019 12:40 PM CDT [facility] [place] [address] PAT MENCHACA :1940 Visit Time:07/01/2019 Your [...] made Where: [address] [place] [address] [phone] [facility] (1) Medications What How Much When Instructions Next Dose metoprolol (Metoprolol Tartrate 25 mg oral tablet) 0.5 Tablet(s) Oral Two Times A Day Refills: 3 Pickup at [facility] esomeprazole (NexIUM 40 mg oral delayed [...] 2 Capsule(s) Oral Every Day Pharmacy Information [facility]: [address] [place] [id number] [phone] Take your medications faithfully. Do NOT skip [...] to eat less sodium. Medicines ??? Take wvvi-uhw-bsggxdy and prescription medicines only as told by [...] right away. Call your local emergency services (081 in the [place] Do not drive yourself to the hospital. If you ever feel like you may hurt yourself or others, or have thoughts about taking your own life, get help right away. You can go to your nearest emergency department or call: ??? Emergency services (056 in the [place] ??? A suicide crisis [...] 08/19/2006 Document Revised: 04/29/2018 Document Reviewed: 04/29/2018 [employer] Patient Education ?? 2019 [employer] Emergency Awareness and Preventative Care STROKE [...] Assistance with quitting is available by contacting 2-892-TVPINOW. This is a free resource providing counseling, [...] range between ( 0.0 and 7.0 ) [place] #: 0.36 K/uL -- Normal range between ( 0.16 and 1.00 ) [place] #: 0.17 x10(3)/uL -- Normal range between ( 0.00 and 0.80 ) [place] %: 3.9 % -- Normal range between [...] ) Urine Bilirubin Dipstick: Small Urine Specific Maury: 1.024 -- Normal range between ( 1.005 [...] was given the opportunity to ask questions. Patient/Retail Merchandising Coordinator Name: Patient/Retail Merchandising Coordinator Signature: Relationship to Patient: Clinician/Hospital Retail Merchandising Coordinator Signature: Date: documented in this encounter Plan of Treatment Not on file documented as of this encounter Visit Diagnoses Not on filedocumented in this encounter Care Teams Cleaner Carpet And Upholstery Relationship Specialty Start Date End Date Allyson Avery, MIDDLE SCHOOL FRENCH TEACHER [address] [address] PCP - General Nurse Practitioner 02/06/23 documented as of this encounter
--- OUTSIDE RECORDS SUMMARY | 2025-05-17 14:37 | XMS_ITS | Encounter Summary ---
Author Organization [employer] ([place]) Address [address] [place] [address] Care Team Providers Care Internetworking Technician Name Role Phone Allyson Avery APRN Primary Care Provider Encounter Details Date Type Department Care Team (Late st Contact Info) Description 07/01/2019 Transcribed Document [facility] [place] [address] [place] [address] ProviderTatiana MD [address] [place] [address] Social History Tobacco Use Types Packs/Day Years [...] 07/01/2019 4:56 EDT Electronically signed by Angel [facility] Conversion Wort Extractor Cerner at 12/20/2022 12:06 PM CDT documented in this encounter Plan of Treatment Not on file documented as of this encounter Visit Diagnoses Not on filedocumented in this encounter Care Teams Internetworking Technician Relationship Specialty Start Date End Date AveryHiene, LEATHER PRODUCTION ARTISAN [address] [place] [address] PCP - General Nurse Practitioner 02/06/23 documented as of this encounter
--- OUTSIDE RECORDS SUMMARY | 2025-05-17 14:37 | XMS_ITS | Encounter Summary ---
Author Organization [employer] ([place]) Address [address] [place] [address] Care Team Providers Care Novelty Printing Machine Operator Name Role Phone Allyson Avery APRN Primary Care Provider Encounter Details Date Type Department Care Team (Late st Contact Info) Description 07/02/2019 Transcribed Document [facility] [place] [address] [place] [address] ProviderTatiana MD [address] [place] [address] Social History Tobacco Use Types Packs/Day Years [...] - 07/02/2019 13:04 EDT Electronically signed by Angel [facility] Conversion Mat Packer Cerner at 12/20/2022 12:26 PM CDT documented in this encounter Plan of Treatment Not on file documented as of this encounter Visit Diagnoses Not on filedocumented in this encounter Care Teams Novelty Printing Machine Operator Relationship Specialty Start Date End Date Allyson Avery, YOKO [address] [place] [address] PCP - General Nurse Practitioner 02/06/23 documented as of this encounter
--- OUTSIDE RECORDS SUMMARY | 2025-05-17 14:37 | XMS_ITS | Encounter Summary ---
Author Organization [employer] ([place], [place]) Address [address] [place] [address] Care Team Providers Care Circle Beveler Name Role Phone Allyson Avery APRN Primary Care Provider Encounter Details Date Type Department Care Team (Late st Contact Info) Description 07/02/2019 Transcribed Document [facility] [place] [address] [place] [address] ProviderTatiana MD [address] [place] [address] Social History Tobacco Use Types Packs/Day Years [...] on filedocumented in this encounter Care Teams Circle Beveler Relationship Specialty Start Date End Date Allyson Avery, COMMUNICATION ELECTRONIC TECHNICIAN [address] [phone] PCP - General Nurse Practitioner 02/06/23 documented as of this encounter
--- OUTSIDE RECORDS SUMMARY | 2025-05-17 14:37 | XMS_ITS | Encounter Summary ---
Author Organization [employer] ([place]) Address [address] [place] [address] Care Team Providers Care Oven Baker Name Role Phone Allyson Avery APRN Primary Care Provider Encounter Details Date Type Department Care Team (Late st Contact Info) Description 07/02/2019 Transcribed Document [facility] [place] [address] [place] [address] ProviderTatiana MD [address] [place] [address] Social History Tobacco Use Types Packs/Day Years [...] Insurance 1 Health Plan: MEDICARE Policy Number: [id number] Authorization Number: Insurance 2 Health Plan: AARP N Policy Number: [id number] Authorization Number: Insurance Primary Name : MEDICARE Policy Number: [id number] AARP N Policy Number: [id number] Historical Authorization Comments-Primary : No Authorization Comments Found TERRI JIMENEZ Rn-Utilization Review - 07/02/2019 9:26 EDT documented in this encounter Plan of Treatment Not on file documented as of this encounter Visit Diagnoses Not on filedocumented in this encounter Care Teams Oven Baker Relationship Specialty Start Date End Date Allyson Avery, YOKO [address] [phone] PCP - General Nurse Practitioner 02/06/23 documented as of this encounter
--- OUTSIDE RECORDS SUMMARY | 2025-05-17 14:37 | XMS_ITS | Encounter Summary ---
Author Organization [email or web address] ([place]) Address [address] [place] [address] Care Team Providers Care Lawn Care Professional Name Role Phone Allyson Avery APRN Primary Care Provider Encounter Details Date Type Department Care Team (Late st Contact Info) Description 03/13/2020 Transcribed Document [facility] [place] [address] [place] [address] ProviderTatiana MD [address] [place] [address] Social History Tobacco Use Types Packs/Day Years [...] on filedocumented in this encounter Care Teams Lawn Care Professional Relationship Specialty Start Date End Date Allyson Avery, FIELD ARTILLERY BASIC [address] [place] [address] PCP - General Nurse Practitioner 02/06/23 documented as of this encounter
--- OUTSIDE RECORDS SUMMARY | 2025-05-17 14:37 | XMS_ITS | Encounter Summary ---
Author Organization [employer] ([place], [place], [place]) Address [address] [place] [address] Care Team Providers Care Automatic Thread Winder Name Role Phone Allyson Avery APRN Primary Care Provider Encounter Details Date Type Department Care Team (Late st Contact Info) Description 07/01/2019 Transcribed Document [facility] [place] [address] [place] [address] ProviderTatiana MD [address] [place] [address] Social History Tobacco Use Types Packs/Day Years [...] of stress recently as he the primary personal care aid for his with 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 He denies [...] bundle block Echo pending Electronically signed by [facility], [facility] Conversion Livestock Farmer Cerner at 12/20/2022 12:28 PM CDT documented in this encounter Plan of Treatment Not on file documented as of this encounter Visit Diagnoses Not on filedocumented in this encounter Care Teams Automatic Thread Winder Relationship Specialty Start Date End Date Allyson Avery, CLOTH WEIGHER [address] [address] PCP - General Nurse Practitioner 02/06/23 documented as of this encounter
--- OUTSIDE RECORDS SUMMARY | 2025-05-17 14:37 | XMS_ITS | Encounter Summary ---
Author Organization [employer] ([place]) Address [address] [place] [address] Care Team Providers Care Computer Installation Engineer Name Role Phone Allyson Avery APRN Primary Care Provider Encounter Details Date Type Department Care Team (Late st Contact Info) Description 07/01/2019 Transcribed Document [facility] [place] [address] [place] [address] ProviderTatiana MD [address] [place] [address] Social History Tobacco Use Types Packs/Day Years [...] 07/01/2019 10:36 EDT Electronically signed by Angel [facility] Conversion Building Official Cerner at 12/20/2022 12:24 PM CDT documented in this encounter Plan of Treatment Not on file documented as of this encounter Visit Diagnoses Not on filedocumented in this encounter Care Teams Computer Installation Engineer Relationship Specialty Start Date End Date Allyson Avery, COMPLIANCE AIDE [address] [place] [address] PCP - General Nurse Practitioner 02/06/23 documented as of this encounter
--- OUTSIDE RECORDS SUMMARY | 2025-05-17 14:37 | XMS_ITS | Encounter Summary ---
Author Organization [employer] ([place], [place], [place]) Address [address] [place] [address] Care Team Providers Care Vocational Guidance Counselor Name Role Phone Bennie Allyson BABCOCK Primary Care Provider [phone] Encounter Details Date Type Department Care Team (Late st Contact Info) Description 07/01/2019 Transcribed Document [facility] [place] [address] [place] [address] ProviderTatiana MD [address] [place] [address] Social History Tobacco Use Types Packs/Day Years [...] 07/01/2019 4:56 EDT Electronically signed by Angel [facility] Conversion Bologna Maker Cerner at 12/20/2022 12:07 PM CDT documented in this encounter Plan of Treatment Not on file documented as of this encounter Visit Diagnoses Not on filedocumented in this encounter Care Teams Vocational Guidance Counselor Relationship Specialty Start Date End Date Allyson Avery, MOVIE ACTOR [address] [phone] PCP - General Nurse Practitioner 02/06/23 documented as of this encounter
--- OUTSIDE RECORDS SUMMARY | 2025-05-17 14:37 | XMS_ITS | Encounter Summary ---
Author Organization [employer] ([place], [place], [place], [place]) Address [address] [place] [address] Care Team Providers Care Food And Drug Inspector Name Role Phone Allyson Avery APRN Primary Care Provider Encounter Details Date Type Department Care Team (Late st Contact Info) Description 07/01/2019 Transcribed Document [facility] [place] [address] [place] [address] ProviderTatiana MD [address] [place] [address] Social History Tobacco Use Types Packs/Day Years [...] - 07/01/2019 0:39 EDT Tracking Group : [facility] ED Sue Anderson RN - 07/01/2019 [...] Recent Thoughts of Harming/Killing Others : No Supervisor Smoke Control Needed : No Oriana Bautista RN - [...] 00:41:51 EDT) Problems(Active) Allergic rhinitis (SNOMED CT :649983112 ) Name of Problem: Allergic rhinitis ; Recorder: CONSTANTIN DARDEN RN; Confirmation: Confirmed ; Classification: Patient Stated ; Code: [id number] ; Contributor System: PowerChart ; Last Updated: 12/09/2014 8:09 EDT ; Life Cycle Date: 12/09/2014 ; Life Cycle Status: Active ; Vocabulary: SNOMED CT Angina (SNOMED CT :408406435 ) Name of Problem: Angina ; Recorder: CONSTANTIN DARDEN RN; Confirmation: Confirmed ; Classification: Patient Stated ; Code: 014744194 ; Contributor System: PowerChart ; Last Updated: 12/09/2014 8:09 EDT ; Life Cycle Date: 12/09/2014 ; Life Cycle Status: Active ; Vocabulary: SNOMED CT Arthritis (SNOMED CT :9236151 ) Name of Problem: Arthritis ; Recorder: CONSTANTIN DARDEN RN; Confirmation: Confirmed ; Classification: Patient Stated ; Code: 1400165 ; Contributor System: PowerChart ; Last Updated: 12/09/2014 8:11 EDT ; Life Cycle Date: 12/09/2014 ; Life Cycle Status: Active ; Vocabulary: SNOMED CT Cardiac arrhythmia (SNOMED CT :0531171082 ) Name of Problem: Cardiac arrhythmia ; Recorder: CONSTANTIN DARDEN RN; Confirmation: Confirmed ; Classification: Patient Stated ; Code: [id number] ; Contributor System: PowerChart ; Last Updated: 12/09/2014 8:10 EDT ; Life Cycle Date: 12/09/2014 ; Life Cycle Status: Active ; Vocabulary: SNOMED CT Coronary artery disease (SNOMED CT :1506332378 ) Name of Problem: Coronary artery disease ; Recorder: CONSTANTIN DARDEN RN; Confirmation: Confirmed ; Classification: Patient Stated ; Code: 5636370391 ; Contributor System: PowerChart ; Last Updated: 12/09/2014 8:09 EDT ; Life Cycle Date: 12/09/2014 ; Life Cycle Status: Active ; Vocabulary: SNOMED CT Hard of hearing (SNOMED CT :229560771 ) Name of Problem: Hard of hearing ; Recorder: CONSTANTIN DARDEN RN; Confirmation: Confirmed ; Classification: Patient Stated ; Code: 948211446 ; Contributor System: PowerChart ; Last Updated: 12/09/2014 8:08 EDT ; Life Cycle Date: 12/09/2014 ; Life Cycle Status: Active ; Vocabulary: SNOMED CT Hyperlipidemia (SNOMED CT :52607009 ) Name of Problem: Hyperlipidemia ; Recorder: CONSTANTIN DARDEN RN; Confirmation: Confirmed ; Classification: Patient Stated ; Code: 70092429 ; Contributor System: [employer] ; Last Updated: 07/31/2017 13:39 EST ; Life Cycle Date: 12/09/2014 ; Life Cycle Status: Active ; Vocabulary: SNOMED CT Hypertension (SNOMED CT :72438285 ) Name of Problem: Hypertension ; Recorder: CONSTANTIN DARDEN RN; Confirmation: Confirmed ; Classification: Patient Stated ; Code: 43985338 ; Contributor System: [employer] ; Last Updated: 12/09/2014 8:09 EDT ; Life Cycle Date: 12/09/2014 ; Life Cycle Status: Active ; Vocabulary: SNOMED CT Myocardial infarction (SNOMED CT :52851502 ) Name of Problem: Myocardial infarction ; Recorder: CONSTANTIN DARDEN RN; Confirmation: Confirmed ; Classification: Patient Stated ; Code: 34186862 ; Contributor System: [employer] ; Last Updated: 12/09/2014 8:11 EDT ; Life Cycle Date: 12/09/2014 ; Life Cycle Status: Active ; Vocabulary: SNOMED CT Renal calculi (SNOMED CT :768744834 ) Name of Problem: Renal calculi ; Recorder: CONSTANTIN DARDEN RN; Confirmation: Confirmed ; Classification: Patient Stated ; Code: 594415486 ; Contributor System: [employer] ; Last Updated: 12/09/2014 8:12 EDT ; Life Cycle Date: 12/09/2014 ; Life Cycle Status: Active ; Vocabulary: SNOMED CT Stented coronary artery (SNOMED CT :7956562923 ) Name of Problem: Stented coronary artery ; Recorder: CONSTANTIN DARDEN RN; Confirmation: Confirmed ; Classification: Patient Stated ; Code: 0213061165 ; Contributor System: [employer] ; Last Updated: 12/09/2014 8:09 EDT ; Life Cycle Date: 12/09/2014 ; Life Cycle Status: Active ; Vocabulary: SNOMED CT Diagnoses(Active) Chest pain Date: 07/01/2019 ; Diagnosis Type: Reason For Visit ; Confirmation: Complaint of ; Clinical Dx: Chest pain ; Classification: Medical ; Clinical Service: Emergency medicine ; Code: PNED ; Probability: 0 ; Diagnosis Code: [id number] ED Height and Weight Height Source : Stated Height Entry Format : [place] Height, Feet : 5 ft(Converted to: 152 cm, 60 Inch) Height, Inches : 9 Inch(Converted to: 0 ft 9 Inch, 22.86 cm) Clinical Height : 175.26 cm Weight Source, ED : Critical estimated dosing weight Weight Entry Format : [place] Weight, Pounds : 182 lb Clinical Dosing Weight : 82.73 kg Body Surface Area (BSA) : 1.99 m2 Body Mass Index : 26.9 kg/m2 (HI) [place] Body Weight (IBW) : 69.73 kg Oriana Bautista, RN - 07/01/2019 0:39 EDT documented in this encounter Plan of Treatment Not on file documented as of this encounter Visit Diagnoses Not on filedocumented in this encounter Care Teams Food And Drug Inspector Relationship Specialty Start Date End Date Allyson Avery, YOKO [address] [address] PCP - General Nurse Practitioner 02/06/23 documented as of this encounter
--- OUTSIDE RECORDS SUMMARY | 2025-05-17 14:37 | XMS_ITS | Encounter Summary ---
[facility] Organization [facility] Address [address] [place] [address] Care Team Providers Care Trade Mark Attorney Name Role Phone Bennie Allyson BABCOCK Primary Care Provider + [phone] Encounter Details Date Type Department Care Team (Late st Contact Info) Description 01/11/2025 Results Follow-Up [facility] [address] [facility] [address] [place] [address] Mansoor Silva MD [address] [facility] [address] [place] [id number] Social History Tobacco Use Types Packs/Day Years [...] EST Office Visit [facility] [address] [facility] [address] [place] [address] Rosa De Dios MD [address] [facility] [address] [place] [address] 07/26/2025 2:00 PM EST Office Visit [facility] [address] [facility] [address] [place] [id number] Monica Quintero, DNP, GAS PUMPING STATION SUPERVISOR [address] [facility] [address] [place] [address] 10/28/2025 1:30 PM EST Office Visit [facility] [address] [facility] [address] [place] [address] Mansoor Silva MD [address] [facility] 400 [place] [address] documented as of this encounter Visit Diagnoses Not on filedocumented in this encounter Care Teams Trade Mark Attorney Relationship Specialty Start Date End Date Allyson Avery APRN [address] [place] [id number] PCP - General Internal Medicine 07/22/23 documented as of this encounter
--- OUTSIDE RECORDS SUMMARY | 2025-05-17 14:37 | XMS_ITS | Encounter Summary ---
Author Organization [employer] ([place], [place], [place], [place]) Address [address] [place] [address] Care Team Providers Care Telephone Sales Agent Name Role Phone Allyson Avery APRN Primary Care Provider Encounter Details Date Type Department Care Team (Late st Contact Info) Description 07/01/2019 Transcribed Document [facility] [place] Family Medicine [address] [place] [address] ProviderTatiana MD [address] [place] [address] Social History Tobacco Use Types Packs/Day Years [...] on filedocumented in this encounter Care Teams Telephone Sales Agent Relationship Specialty Start Date End Date Allyson Avery, YOKO [address] [address] PCP - General Nurse Practitioner 02/06/23 documented as of this encounter
--- OUTSIDE RECORDS SUMMARY | 2025-05-17 14:37 | XMS_ITS | Encounter Summary ---
Author Organization [facility] ([place], [place], [place], [place]) Address [address] [place] [address] Care Team Providers Care Retail Gift Card Merchandising Name Role Phone Bennie Allyson APRN Primary Care Provider [phone] Encounter Details Date Type Department Care Team (Late st Contact Info) Description 07/01/2019 Transcribed Document [facility] [place] Medicine [address] [place] [address] ProviderTatiana MD [address] [place] [address] Social History Tobacco Use Types Packs/Day Years [...] EDT Height Source Stated Height Entry Format Cecil Height/Length, URUGUAYAN (ft) 5 ft Height/Length URUGUAYAN 9 Inch CLINICALHEIGHT 175.26 cm [place] Body Weight 69.73 kg Weight Source, ED Critical estimated dosing weight Weight Entry Format Cecil Weight [place] lb 182 lb CLINICALWEIGHT 82.73 kg Body [...] ED Adult Triage: ED Clinical Reconciliation: ED restaurant service manager: Normal Saline Flush: 10 mL, IV Push, [...] % LOW Lymph # 0.43 x10(3)/uL LOW [place] % 3.7 % [place] # 0.41 K/uL Eos % 0.3 % [...] understanding of instructions. Electronically signed by Angel, [facility] Conversion Business Improvement Manager Cerner at 12/20/2022 12:32 PM CDT documented in this encounter Plan of Treatment Not on file documented as of this encounter Visit Diagnoses Not on filedocumented in this encounter Care Teams Retail Gift Card Merchandising Relationship Specialty Start Date End Date Allyson Avery, BUDGET EXAMINER [address] [place] [address] [id number] PCP - General Nurse Practitioner 02/06/23 documented as of this encounter
--- OUTSIDE RECORDS SUMMARY | 2025-05-17 14:37 | XMS_ITS | Encounter Summary ---
Author Organization [employer] ([place], [place], [place], [place]) Address [address] [place] [address] Care Team Providers Care Consulting Psychiatrist Name Role Phone Allyson Avery APRN Primary Care Provider Encounter Details Date Type Department Care Team (Late st Contact Info) Description 07/02/2019 Transcribed Document [facility] [place] Family Medicine [address] [place] [address] ProviderTatiana MD [address] [place] [address] Social History Tobacco Use Types Packs/Day Years [...] to eat less sodium. Medicines ??? Take umgh-xaj-perhnhi and prescription medicines only as told by [...] 08/19/2006 Document Revised: 04/29/2018 Document Reviewed: 04/29/2018 [email or web address] Interactive Patient Education ? 2019 [employer] documented in this encounter Plan of Treatment Not on file documented as of this encounter Visit Diagnoses Not on filedocumented in this encounter Care Teams Consulting Psychiatrist Relationship Specialty Start Date End Date Allyson Avery APRN [address] [address] PCP - General Nurse Practitioner 02/06/23 documented as of this encounter
--- OUTSIDE RECORDS SUMMARY | 2025-05-17 14:37 | XMS_ITS | Encounter Summary ---
Author Organization [employer] ([place], [place], [place], [place]) Address [address] [place] [address] Care Team Providers Care Grout Machine Operator Name Role Phone Allyson Avery APRN Primary Care Provider Encounter Details Date Type Department Care Team (Late st Contact Info) Description 07/01/2019 Transcribed Document [facility] [place] Family Medicine [address] [place] [address] ProviderTatiana MD [address] [place] [address] Social History Tobacco Use Types Packs/Day Years [...] On: 07/01/2019 4:00 EDT by Deedee Aiken, Seed Collector-Student Nurse Height and Weight, Routine Routine Weight Source : Bed scale Routine Weight Entry Format : Metric Routine Weight, Kilograms : 78.8 kg(Converted to: 173 lb 12 oz) Routine Weight Calculation : 78.8 kg Height Source : Stated Height Entry Format : [place] Height, Feet : 5 ft Height, Inches : 9 Inch Clinical Height : 175.26 cm Body Surface Area (BSA), Routine : 1.95 m2 Body Mass Index (BMI), Routine : 25.65 kg/m2 Deedee Aiken, Seed Collector-Student Nurse - 07/01/2019 6:25 EDT documented in this encounter Plan of Treatment Not on file documented as of this encounter Visit Diagnoses Not on filedocumented in this encounter Care Teams Grout Machine Operator Relationship Specialty Start Date End Date Allyson Avery, DOCKETING SPECIALIST [address] [place] [phone] PCP - General Nurse Practitioner 02/06/23 documented as of this encounter
--- OUTSIDE RECORDS SUMMARY | 2025-05-17 14:37 | XMS_ITS | Encounter Summary ---
Author Organization [employer] ([place], [place], [place], [place]) Address [address] [place] [address] Care Team Providers Care Laborer Tree Tapping Name Role Phone Bennie Allyson YOKO Primary Care Provider [phone] Encounter Details Date Type Department Care Team (Late st Contact Info) Description 07/01/2019 Transcribed Document [facility] [place] Family Medicine [address] [place] [address] ProviderTatiana MD [address] [place] [address] Social History Tobacco Use Types Packs/Day Years [...] On: 07/01/2019 1:01 EDT by Oriana Bautista, LEATHER CLEANER Quick Look Assessment Level of Consciousness : Alert, Awake Affect/Behavior : Appropriate, Calm, Cooperative Orientation : Oriented x 4 Skin Temperature : Warm Oriana Bautista RN - 07/01/2019 1:01 EDT ED General-Functional Assess Information Obtained From : Patient Preferred Communication Mode : Verbal Communication Barrier : None Primary Language : Colombian Any Spiritual/Cultural Needs or Requests : No [...] on filedocumented in this encounter Care Teams Laborer Tree Tapping Relationship Specialty Start Date End Date AveryHien lae, REWRITER [address] [address] PCP - General Nurse Practitioner 02/06/23 documented as of this encounter
--- OUTSIDE RECORDS SUMMARY | 2025-05-17 14:37 | XMS_ITS | Encounter Summary ---
Author Organization [employer] ([place], [place], [place], [place]) Address [address] [place] [address] Care Team Providers Care Linter Operator Name Role Phone Allyson Avery APRN Primary Care Provider Encounter Details Date Type Department Care Team (Late st Contact Info) Description 07/01/2019 Transcribed Document [facility] [place] Family Medicine [address] [place] [address] ProviderTatiana MD [address] [place] [address] Social History Tobacco Use Types Packs/Day Years [...] ADMISSION: 07/01/2019 PRIMARY CARE: Allyson Avery APRN, [place], [place]. REFERRING PHSYCIAN: Dr. Baljinder Joseph, [facility] , 1940. CURRENT COMPLAINT: Chest pain, sweating. 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 Chest x-ray [...] doses are different than noted in his [facility] MAR. ALLERGIES: None. TOBACCO USE: None. ALCOHOL USE: None. OTHER HEALTH PROBLEMS: Include, idiopathic hypothyroidism, hyperlipidemia, history of nephrolithiasis, poor dentition and hearing loss. CHILDHOOD ILLNESSES: No rheumatic fever, diphtheria, tuberculosis, polio or jaundice. SURGICAL HISTORY: As noted above. FAMILY HISTORY: Hypertension, diabetes. SOCIAL HISTORY: Born and reared in [facility], finished high school. He did not [...] evaluation by Dr. Feldman or his associates. /[id number] Eleazar Sullivan MD Timi MGE/AQ / MGE / MODL CC1: Ms [place]anisha [place], [place] CC2: Dr. Heath Feldman Electronically signed by [facility], [facility] Conversion Parts Driver Cerner at 12/20/2022 12:25 PM CDT documented in this encounter Plan of Treatment Not on file documented as of this encounter Visit Diagnoses Not on filedocumented in this encounter Care Teams Linter Operator Relationship Specialty Start Date End Date Allyson Avery APRN [address] [address] PCP - General Nurse Practitioner 02/06/23 documented as of this encounter
--- OUTSIDE RECORDS SUMMARY | 2025-05-17 14:37 | XMS_ITS | Encounter Summary ---
Author Organization [employer] ([place], [place], [place], [place]) Address [address] [place] [address] Care Team Providers Care Manager Field Sales Name Role Phone Allyson Avery APRN Primary Care Provider Encounter Details Date Type Department Care Team (Late st Contact Info) Description 07/02/2019 Transcribed Document [facility] [place] Family Medicine [address] [place] [address] ProviderTatiana MD [address] [place] [address] Social History Tobacco Use Types Packs/Day Years [...] Associated Diagnoses: None Author: JOSHUA CHAPMAN APRN [facility] PROGRESS NOTE: DIAGNOSIS: 1. CP SUBJECTIVE: [...] kg (07/02/19 04:00:00) Routine Weight Entry Format: [employer] (07/02/19 04:00:00) Routine Weight Source: Bed scale (07/02/19 04:00:00) Routine Weight, Kilograms: 78.8 kg (07/01/19 04:00:00) Routine Weight, Ounces: 1 oz (07/02/19 04:00:00) Routine Weight, Pounds: 181 lb (07/02/19 04:00:00) Estimated Clinical Dosing Weight: 82.73 kg (07/01/19 03:26:00) [place] Body Weight: 70 kg (07/01/19 03:26:00) Intake [...] standpoint Follow up with Francia one month Adlofo Martinez Electronically signed by Aruna Ortiz Conversion Senior Electronics Design Engineer Tayo at 12/20/2022 12:28 PM CDT documented in this encounter Plan of Treatment Not on file documented as of this encounter Visit Diagnoses Not on filedocumented in this encounter Care Teams Manager Field Sales Relationship Specialty Start Date End Date Allyson Avery, MANAGER FLIGHT OPERATIONS [address] [address] PCP - General Nurse Practitioner 02/06/23 documented as of this encounter
--- OUTSIDE RECORDS SUMMARY | 2025-05-17 14:37 | XMS_ITS | Encounter Summary ---
Author Organization [employer] ([place], [place], [place], [place]) Address [address] [place] [address] Care Team Providers Care Explosive Ordnance Handler Name Role Phone Allyson Avery YOKO Primary Care Provider Encounter Details Date Type Department Care Team (Late st Contact Info) Description 07/01/2019 Transcribed Document [facility] 1 [place] [address] Jf Gallagher MD [address] [place] [address] [address] [place] [address] Social History Tobacco Use Types Packs/Day Years [...] None Author: JF GALLAGHER MD-INT Subjective PCP: [facility] DOA: 07/01/2019 DOD: HPI: Patient admitted with chest pain, elevated troponin and 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 CODE STATUS: Full code CONSULTS: [facility] cardiology WORKUP / PROCEDURES: HOSPITAL FOLLOWUP: [...] Results Review Radiology Results (Last 48 hours) [id number] -- 07/01/2019 01:59 CR Chest 1 Vw [...] pain with elevated troponin, likely non-ST elevation PA. History of coronary artery disease and CABG Sick sinus syndrome and history of permanent pacemaker Essential hypertension Hyper lipidemia Hyperuricemia PLAN Continue current treatment. Home medications reviewed and reconciled. Cardiology input appreciated and follow-up instructions. Monitor baseline labs. documented in this encounter Plan of Treatment Not on file documented as of this encounter Visit Diagnoses Not on filedocumented in this encounter Care Teams Explosive Ordnance Handler Relationship Specialty Start Date End Date Allyson Avery, YOKO [address] [place] [address] PCP - General Nurse Practitioner 02/06/23 documented as of this encounter
--- OUTSIDE RECORDS SUMMARY | 2025-05-17 14:37 | XMS_ITS | Encounter Summary ---
Author Organization [facility] ([place], [place], [place], [place]) Address [address] [place] [address] Care Team Providers Care Drafter Cartographic Name Role Phone Allyson Avery APRN Primary Care Provider Encounter Details Date Type Department Care Team (Late st Contact Info) Description 07/01/2019 Transcribed Document [facility] [place] Family Medicine [address] [place] [address] ProviderTatiana MD [address] [place] [address] Social History Tobacco Use Types Packs/Day Years [...] on filedocumented in this encounter Care Teams Drafter Cartographic Relationship Specialty Start Date End Date Allyson Avery, COMMERCIAL ESCROW OFFICER [address] [place] [address] PCP - General Nurse Practitioner 02/06/23 documented as of this encounter
--- OUTSIDE RECORDS SUMMARY | 2025-05-17 14:37 | XMS_ITS | Encounter Summary ---
Author Organization [facility] ([place], [place], [place], [place]) Address [address] [place] [address] Care Team Providers Care Verification Rep Name Role Phone Allyson Avery APRN Primary Care Provider Encounter Details Date Type Department Care Team (Late st Contact Info) Description 03/13/2020 Transcribed Document [facility] Family Medicine [address] [place] [address] ProviderTatiana MD [address] [place] [address] Social History Tobacco Use Types Packs/Day Years [...] PRIMARY CARE PHYSICIAN: Ms. Allyson Avery APRN, [place], [place]. [facility] , 1940. CURRENT COMPLAINT: Spell of brief [...] magnesium level. 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 Anticipate possible repeat cardiac catheterization. 2. Cardiac biomarker abnormality. The minimal abnormality of troponin may represent chronic myocardial injury versus a type 2 infarction associated with demand. The former is suggested by previous elevation with non-specific symptoms. 3. CAD 4. Hypertension 5. Hypothyroidism 6. Diabetes mellitus 7. other problems identified above /[id number] Mathieulisa Capellan MD MGE/AQ / MGE / MODL CC: Ms Bennie APRNYpsilanti, [place], Dr. Heath Feldman Electronically signed by [facility], [facility] Conversion Web Press Operator Apprentice Cerner at 12/20/2022 12:26 PM CDT documented in this encounter Plan of Treatment Not on file documented as of this encounter Visit Diagnoses Not on filedocumented in this encounter Care Teams Verification Rep Relationship Specialty Start Date End Date Allyson Avery APRN [address] [address] PCP - General Nurse Practitioner 02/06/23 documented as of this encounter
--- OUTSIDE RECORDS SUMMARY | 2025-05-17 14:37 | XMS_ITS | Encounter Summary ---
Author Organization [employer] ([place], [place], [place], [place]) Address [address] [place] [address] Care Team Providers Care Stone Rougher Name Role Phone Allyson Avery APRN Primary Care Provider Encounter Details Date Type Department Care Team (Late st Contact Info) Description 07/01/2019 Transcribed Document [facility] [place] Family Medicine [address] [place] [address] ProviderTatiana MD [address] [place] [address] Social History Tobacco Use Types Packs/Day Years [...] activities PAYTON GONZALEZ OTR/[place] 07/01/2019 14:28 EDT Usp Goals, OT Dressing, Lower Body LTG Grid [...] the text rendition version of the form. [place] OT Charges OT Selfcare/Hm Mgmt Ea 15 Min : 1 OT Eval Low Complexity : 1 PAYTON GONZALEZ OTR/[place] - 07/01/2019 14:28 EDT Electronically signed by Aruna Ortiz Conversion Business Continuity Strategy Director Cerner at 12/20/2022 12:24 PM CDT documented in this encounter Plan of Treatment Not on file documented as of this encounter Visit Diagnoses Not on filedocumented in this encounter Care Teams Stone Rougher Relationship Specialty Start Date End Date Allyson Avery APRN [address] [address] PCP - General Nurse Practitioner 02/06/23 documented as of this encounter
--- OUTSIDE RECORDS SUMMARY | 2025-05-17 14:37 | XMS_ITS | Encounter Summary ---
Author Organization [employer] ([place], [place], [place], [place]) Address [address] [place] [address] Care Team Providers Care Second Hand Paper Machine Name Role Phone Bennie Allyson BABCOCK Primary Care Provider Encounter Details Date Type Department Care Team (Late st Contact Info) Description 07/02/2019 Transcribed Document [facility] [place] Family Medicine [address] [place] [address] ProviderTatiana MD [address] [place] [address] Social History Tobacco Use Types Packs/Day Years Used Date Smoking Tobacco: Never Assessed Sex and Gender Information Value Date Recorded Sex Assigned at Not on file Legal Sex Male 5:33 PM CDT Gender Identity Not on file Sexual Orientation Not on file documented as of this encounter Miscellaneous Notes * [employer] Conversion Note - Historical ProviderMD - 07/02/2019 2:00 AM CDT Special Tax Auditor Details Entered On: 07/02/2019 2:23 EDT Performed [...] on filedocumented in this encounter Care Teams Second Hand Paper Machine Relationship Specialty Start Date End Date Allyson Avery, YOKO [address] [phone] PCP - General Nurse Practitioner 02/06/23 documented as of this encounter
--- OUTSIDE RECORDS SUMMARY | 2025-05-17 14:37 | XMS_ITS | Encounter Summary ---
Author Organization [employer] ([place], [place], [place], [place]) Address [address] [place] [address] Care Team Providers Care Machine Printer Name Role Phone Allyson Avery APRN Primary Care Provider Encounter Details Date Type Department Care Team (Late st Contact Info) Description 03/13/2020 Transcribed Document [facility] [place] Family Medicine [address] [place] [address] ProviderTatiana MD [address] [place] [address] Social History Tobacco Use Types Packs/Day Years [...] : 2 - Emergent Tracking Group : [facility] ED Salty Wolff RN - 03/13/2020 [...] 21:44:26 EDT) Problems(Active) Allergic rhinitis (SNOMED CT :929573419 ) Name of Problem: Allergic rhinitis ; Recorder: CONSTANTIN DARDEN RN; Confirmation: Confirmed ; Classification: Patient Stated ; Code: [id number] ; Contributor System: ZeroDesktopChart ; Last Updated: 12/09/2014 8:09 EDT ; Life Cycle Date: 12/09/2014 ; Life Cycle Status: Active ; Vocabulary: SNOMED CT Angina (SNOMED CT :475583624 ) Name of Problem: Angina ; Recorder: CONSTANTIN DARDEN RN; Confirmation: Confirmed ; Classification: Patient Stated ; Code: 244246727 ; Contributor System: ZeroDesktopChart ; Last Updated: 12/09/2014 8:09 EDT ; Life Cycle Date: 12/09/2014 ; Life Cycle Status: Active ; Vocabulary: SNOMED CT Arthritis (SNOMED CT :5421162 ) Name of Problem: Arthritis ; Recorder: CONSTANTIN DARDEN RN; Confirmation: Confirmed ; Classification: Patient Stated ; Code: 4651681 ; Contributor System: ZeroDesktopChart ; Last Updated: 12/09/2014 8:11 EDT ; Life Cycle Date: 12/09/2014 ; Life Cycle Status: Active ; Vocabulary: SNOMED CT At risk for sleep apnea (IMO :54423285 ) Name of Problem: At risk for sleep apnea ; Recorder: SYSTEM, SYSTEM; Confirmation: Confirmed ; Classification: Medical ; Code: 83193212 ; Last Updated: 07/01/2019 3:39 EDT ; Life Cycle Date: 07/01/2019 ; Life Cycle Status: Active ; Vocabulary: IMO Cardiac arrhythmia (SNOMED CT :5122036873 ) Name of Problem: Cardiac arrhythmia ; Recorder: CONSTANTIN DARDEN RN; Confirmation: Confirmed ; Classification: Patient Stated ; Code: 3525592801 ; Contributor System: PowerChart ; Last Updated: 12/09/2014 8:10 EDT ; Life Cycle Date: 12/09/2014 ; Life Cycle Status: Active ; Vocabulary: SNOMED CT Coronary artery disease (SNOMED CT :9991556599 ) Name of Problem: Coronary artery disease ; Recorder: CONSTANTIN DARDEN RN; Confirmation: Confirmed ; Classification: Patient Stated ; Code: 6577940416 ; Contributor System: PowerChart ; Last Updated: 12/09/2014 8:09 EDT ; Life Cycle Date: 12/09/2014 ; Life Cycle Status: Active ; Vocabulary: SNOMED CT Hard of hearing (SNOMED CT :087859724 ) Name of Problem: Hard of hearing ; Recorder: CNOSTANTIN DARDEN RN; Confirmation: Confirmed ; Classification: Patient Stated ; Code: 521062897 ; Contributor System: PowerChart ; Last Updated: 12/09/2014 8:08 EDT ; Life Cycle Date: 12/09/2014 ; Life Cycle Status: Active ; Vocabulary: SNOMED CT Hyperlipidemia (SNOMED CT :03402432 ) Name of Problem: Hyperlipidemia ; Recorder: CONSTANTIN DARDEN RN; Confirmation: Confirmed ; Classification: Patient Stated ; Code: 65523662 ; Contributor System: PowerChart ; Last Updated: 07/31/2017 13:39 EST ; Life Cycle Date: 12/09/2014 ; Life Cycle Status: Active ; Vocabulary: SNOMED CT Hypertension (SNOMED CT :38258007 ) Name of Problem: Hypertension ; Recorder: CONSTANTIN DARDEN RN; Confirmation: Confirmed ; Classification: Patient Stated ; Code: 67114299 ; Contributor System: PowerChart ; Last Updated: 12/09/2014 8:09 EDT ; Life Cycle Date: 12/09/2014 ; Life Cycle Status: Active ; Vocabulary: SNOMED CT Myocardial infarction (SNOMED CT :82216861 ) Name of Problem: Myocardial infarction ; Recorder: CONSTANTIN DARDEN RN; Confirmation: Confirmed ; Classification: Patient Stated ; Code: 75791045 ; Contributor System: ZeroDesktopChart ; Last Updated: 12/09/2014 8:11 EDT ; Life Cycle Date: 12/09/2014 ; Life Cycle Status: Active ; Vocabulary: SNOMED CT Renal calculi (SNOMED CT :935160744 ) Name of Problem: Renal calculi ; Recorder: CONSTANTIN DARDEN RN; Confirmation: Confirmed ; Classification: Patient Stated ; Code: 550460554 ; Contributor System: ZeroDesktopChart ; Last Updated: 12/09/2014 8:12 EDT ; Life Cycle Date: 12/09/2014 ; Life Cycle Status: Active ; Vocabulary: SNOMED CT Stented coronary artery (SNOMED CT :3264327940 ) Name of Problem: Stented coronary artery ; Recorder: CONSTANTIN DARDEN RN; Confirmation: Confirmed ; Classification: Patient Stated ; Code: 3574560365 ; Contributor System: PowerChart ; Last Updated: 12/09/2014 8:09 EDT ; Life Cycle Date: 12/09/2014 ; Life Cycle Status: Active ; Vocabulary: SNOMED CT Diagnoses(Active) HTN - Hypertension Date: 03/13/2020 ; Diagnosis Type: Reason For Visit ; Confirmation: Complaint of ; Clinical Dx: HTN - Hypertension ; Classification: Medical ; Clinical Service: Emergency medicine ; Code: PNED ; Probability: 0 ; Diagnosis Code: [id number] ED Height and Weight Height Source : Stated Height Entry Format : [place] Height, Feet : 6 ft(Converted to: 183 cm, 72 Inch) Height, Inches : 0 Inch(Converted to: 0 ft 0 Inch, 0.00 cm) Clinical Height : 182.88 cm Weight Source, ED : Critical estimated dosing weight Weight Entry Format : [place] Weight, Pounds : 175 lb Clinical Dosing Weight : 79.55 kg Body Surface Area (BSA) : 2.01 m2 Body Mass Index : 23.8 kg/m2 [place] Body Weight (IBW) : 76.59 kg Salty Wolff RN - 03/13/2020 21:38 EDT Electronically signed by Angel [facility] Conversion Customer Advisor Specialist Cerner at 12/20/2022 12:30 PM CDT documented in this encounter Plan of Treatment Not on file documented as of this encounter Visit Diagnoses Not on filedocumented in this encounter Care Teams Machine Printer Relationship Specialty Start Date End Date Allyson Avery APRN [address] [address] PCP - General Nurse Practitioner 02/06/23 documented as of this encounter
--- OUTSIDE RECORDS SUMMARY | 2025-05-17 14:37 | XMS_ITS | Encounter Summary ---
Author Organization [facility] Address [address] [place] [address] Care Team Providers Care Loader Helper Name Role Phone Allyson Avery APRN Primary Care Provider + [phone] Reason for Referral * Cardiac (Routine) - Pending Review Specialty Diagnoses / Procedures Referred By Contac t Referred To Contact Diagnoses Atrial fibrillation, unspecified type Procedures Cardioversion External in Cardiology Department Mansoor Silva MD [address] [address] Phone: tel: fax: Referral ID Status Reason Start Date Expiration Date V isits Requested Visits Authorized [id number] Pending Review 05/11/2025 08/10/2026 1 1 Encounter Details Date Type Department Care Team (Late st Contact Info) Description 05/10/2025 Telephone [facility] CARDIOLOGY [address] [address] Mansoor Silva MD [address] [place] [address] Social History Tobacco Use Types Packs/Day Years [...] as of this encounter Progress Notes * Lorna Song RN - 05/12/2025 1:16 PM EDTAddended by: LORNA SONG on: 05/12/2025 01:16 PM Modules accepted: Orders documented in this encounter Miscellaneous Notes * Telephone Encounter - Lorna Song RN - 05/12/2025 1:15 PM EDT Spoke with , patient is to just stay on amiodarone 200 mg daily and switch from plavix to eliquis and plan on cardioversion in three weeks. Patient son verbalizes understanding. Updated medication list. * Telephone Encounter - Kade Mora - 05/12/2025 11:51 AM EDT 's son called this morning regarding the amiodarone. He states his dad has been on this medication for about 5 years. He takes 1 a day. It was prescribed by his PCP. Would you like him to increase to 2 a day? * Telephone Encounter - Jack Cerrato RN - 05/11/2025 8:56 AM EDT Spoke with patient's son about Dr. Silva's recommendations and medication changes. Patient's son agreeable and understood. Orders placed. * Telephone Encounter - Kade Mora - 05/10/2025 10:37 AM EDT Images from the original note were not included. I called to speak with after receiving a remote reading showing AF since yesterday. I spoke with his son who states his dad got up this morning ate breakfast and went back to bed.His B/P was 102/63. His son reports Mr Menchaca has not felt good for a month. documented in this encounter Plan of Treatment Upcoming Encounters Date Type Department Care Team (Late st Contact Info) Description 07/20/2025 3:45 PM EST Office Visit [facility] ENDOCRINOLOGY [address] [facility] [address] [place] [address] Rosa De Dios MD [address] [facility] [address] [place] [address] 07/26/2025 2:00 PM EST [facility] [address] [facility] [address] [place] [address] Monica Quintero, DNP, DATA PROGRAMMER [address] [facility] [address] [place] [address] 10/28/2025 1:30 PM EST Office Visit [facility] [address] [facility] [address] [place] [address] Mansoor Silva MD [address] [facility] [address] [place] [address] Scheduled Orders Name Type Priority Associated Diagnoses Orde r Schedule Cardioversion External in Cardiology Department Cardiac Services Routine Atrial fibrillation, unspecified type Expected: 06/01/2025, Expires: 08/10/2026 documented as of this encounter Visit Diagnoses Diagnosis Atrial fibrillation, unspecified type- Primary documented in this encounter Care Teams Loader Helper Relationship Specialty Start Date End Date Allyson Avery APRN [address] [place] [address] PCP - General Internal Medicine 07/22/23 documented as of this encounter
--- OUTSIDE RECORDS SUMMARY | 2025-05-17 14:37 | XMS_ITS | Encounter Summary ---
Author Organization [employer] ([place], [place], [place], [place]) Address [address] [place] [address] Care Team Providers Care Table Keeper Name Role Phone Allyson Avery APRN Primary Care Provider Encounter Details Date Type Department Care Team (Late st Contact Info) Description 07/02/2019 Transcribed Document [facility] [place] Medicine [address] [place] [address] ProviderTatiana MD [address] [place] [address] Social History Tobacco Use Types Packs/Day Years [...] : Yes Discharge To Care Management : Home/Residential/Intermediate or Self Care -01 ALMA COSTA RN-Care Management - 07/02/2019 12:49 EDT Electronically signed by Angel [facility] Conversion Hotel Front Desk Agent Cerner at 12/20/2022 12:34 PM CDT documented in this encounter Plan of Treatment Not on file documented as of this encounter Visit Diagnoses Not on filedocumented in this encounter Care Teams Table Keeper Relationship Specialty Start Date End Date Allyson Avery APRN [address] [id number] PCP - General Nurse Practitioner 02/06/23 documented as of this encounter
--- OUTSIDE RECORDS SUMMARY | 2025-05-17 14:37 | XMS_ITS | Encounter Summary ---
Author Organization [employer] ([place], [place], [place], [place]) Address [address] [place] [address] Care Team Providers Care Sleep Tech Name Role Phone Allyson Avery APRN Primary Care Provider Encounter Details Date Type Department Care Team (Late st Contact Info) Description 07/01/2019 Transcribed Document [facility] Family Medicine [address] [place] [address] ProviderTatiana MD [address] [place] [address] Social History Tobacco Use Types Packs/Day Years [...] Son Legal Guardian : No Support Person/Patient Adding Machine Operator : Yes Support Person/Pt Rep Name : Perlita Fitzgerald Contact Password : Melissa Support Person/Pt Rep Contact Information : [phone] Want Family/Rep/Phys Notified of Admit : No [...] Obtained From : Patient Primary Language : Persian Preferred Communication Mode : Verbal Communication Barrier [...] Scale Risk Level : 25-45 Medium Risk [place] Fall Interventions : Adequate lighting, Assistive devices [...] Source : Stated Height Entry Format : [place] Height, Feet : 5 ft(Converted to: 152 cm, 60 Inch) Height, Inches : 9 Inch(Converted to: 0 ft 9 Inch, 22.86 cm) Clinical Height : 175.26 cm Weight Source : Stated [place] Body Weight : 70 kg Sixto Shelton RN - 07/01/2019 3:26 EDT Estimated Weight Type of Weight Measurement Est : [place] Weight, est lb : 182 lb(Converted to: [...] Any Spiritual/Cultural Needs or Requests : No Anabaptism Preference : Orthodox of [employer] Sixto Shelton RN - 07/01/2019 3:26 EDT Valuables and Belongings Valuables and Belongings : Clothing Clothing : Common streetwear Clothing Disposition : Bedside Sixto Shelton RN - 07/01/2019 3:26 EDT documented in this encounter Plan of Treatment Not on file documented as of this encounter Visit Diagnoses Not on filedocumented in this encounter Care Teams Sleep Tech Relationship Specialty Start Date End Date Allyson Avery APRN [address] [phone] PCP - General Nurse Practitioner 02/06/23 documented as of this encounter
--- OUTSIDE RECORDS SUMMARY | 2025-05-17 14:37 | XMS_ITS | Encounter Summary ---
Author Organization [employer] ([place], [place], [place], [place]) Address [address] [place] [address] Care Team Providers Care Dairy Science Teacher Name Role Phone Allyson Avery APRN Primary Care Provider [phone] Encounter Details Date Type Department Care Team (Late st Contact Info) Description 07/02/2019 Transcribed Document [facility] [place] Family Medicine [address] [place] [address] ProviderTatiana MD [address] [place] [address] Social History Tobacco Use Types Packs/Day Years [...] On: 07/02/2019 4:00 EDT by Татьяна [place] [facility] Unit Coord Height and Weight, Routine Routine Weight Source : Bed scale Routine Weight Entry Format : [place] Routine Weight, Pounds : 181 lb Routine Weight, Ounces : 1 oz Routine Weight Calculation : 82.3 kg Height Source : Stated Height Entry Format : [place] Height, Feet : 5 ft Height, Inches : 9 Inch Clinical Height : 175.26 cm Body Surface Area (BSA), Routine : 1.98 m2 Body Mass Index (BMI), Routine : 26.79 kg/m2 Татьяна [place], Radiologic Technology Teacher-Health Unit Coord - 07/02/2019 3:56 EDT documented in this encounter Plan of Treatment Not on file documented as of this encounter Visit Diagnoses Not on filedocumented in this encounter Care Teams Dairy Science Teacher Relationship Specialty Start Date End Date Allyson Avery, YOKO [address] [place] [address] PCP - General Nurse Practitioner 02/06/23 documented as of this encounter
--- OUTSIDE RECORDS SUMMARY | 2025-05-17 14:38 | XMS_ITS | Encounter Summary ---
Author Organization [employer] ([place], [place], [place], [place]) Address [address] [place] [address] Care Team Providers Care Wafer Substrate Tester Name Role Phone Allyson Avery APRN Primary Care Provider [phone] Encounter Details Date Type Department Care Team (Late st Contact Info) Description 03/16/2020 Transcribed Document [facility] Family Medicine [address] [place] [address] ProviderTatiana MD [address] [place] [address] Social History Tobacco Use Types Packs/Day Years [...] OT : 79 yo M admitted to [facility] 03/14 secondary to CAD, syncope, and VTACH. [...] Persons Providing Information : Patient, Child/Children, Other: [facility] Home Equipment, Therapy : None Home Setup [...] Therapy : Verbalizes understanding EUGENE LYNCH OTR/Belia Escobar 03/17/2020 13:23 EDT Teaching/Learning Assessment [...] EUGENE LYNCH OTR/Belia - 03/17/2020 13:23 EDT Home OT Charges OT Eval Low Complexity : 1 EUGENE LYNCH OTR/Belia - 03/17/2020 13:23 EDT documented in this encounter Plan of Treatment Not on file documented as of this encounter Visit Diagnoses Not on filedocumented in this encounter Care Teams Wafer Substrate Tester Relationship Specialty Start Date End Date Allyson Avery, YOKO [address] [address] PCP - General Nurse Practitioner 02/06/23 documented as of this encounter
--- OUTSIDE RECORDS SUMMARY | 2025-05-17 14:38 | XMS_ITS | Encounter Summary ---
Author Organization [employer] ([place], [place], [place], [place]) Address [address] [place] [address] Care Team Providers Care Roaster Helper Name Role Phone Allyson Avery APRN Primary Care Provider Encounter Details Date Type Department Care Team (Late st Contact Info) Description 03/16/2020 Transcribed Document [facility] Family Medicine [address] [place] [address] ProviderTatiana MD [address] [place] [address] Social History Tobacco Use Types Packs/Day Years [...] EDT Electronically signed by Aruna Ortiz Conversion Pharmaceutical Specialty Representative Cerner at 12/20/2022 12:32 PM CDT documented in this encounter Plan of Treatment Not on file documented as of this encounter Visit Diagnoses Not on filedocumented in this encounter Care Teams Roaster Helper Relationship Specialty Start Date End Date Allyson Avery, YOKO [address] [phone] PCP - General Nurse Practitioner 02/06/23 documented as of this encounter
--- OUTSIDE RECORDS SUMMARY | 2025-05-17 14:38 | XMS_ITS | Encounter Summary ---
Author Organization [employer] ([place], [place], [place], [place]) Address [address] [place] [address] Care Team Providers Care Investigator Welfare Name Role Phone Allyson Avery YOKO Primary Care Provider Encounter Details Date Type Department Care Team (Late st Contact Info) Description 03/16/2020 Transcribed Document [facility] Radiology [address] [place] [address] Jf Gallagher MD [address] [place] [address] [address] [place] [address] Social History Tobacco Use Types Packs/Day Years [...] None Author: JF GALLAGHER MD-INT Subjective PCP: [facility] DOA: 03/13/2020 DOD: HPI: 79 year-old gentleman admitted to the hospital with a near syncopal episode and possibly V. tach CODE STATUS: Modified code as documented in the chart intubation and full treatment but no ACLS CONSULTS: Cardiology, [facility] WORKUP / PROCEDURES: Cardiac Cath DATE [...] the anterior wall. No mitral insufficiency noted. [place] CORONARY ARTERIOGRAPHY: Left coronary artery: Left main [...] on filedocumented in this encounter Care Teams Investigator Welfare Relationship Specialty Start Date End Date Allyson Avery, YOKO [address] [address] PCP - General Nurse Practitioner 02/06/23 documented as of this encounter
--- OUTSIDE RECORDS SUMMARY | 2025-05-17 14:38 | XMS_ITS | Encounter Summary ---
Author Organization [employer] ([place], [place], [place], [place]) Address [address] [place] [address] Care Team Providers Care Site Administrator Name Role Phone Allyson Avery APRN Primary Care Provider Encounter Details Date Type Department Care Team (Late st Contact Info) Description 03/15/2020 Transcribed Document [facility] Family Medicine [address] [place] [address] ProviderTatiana MD [address] [place] [address] Social History Tobacco Use Types Packs/Day Years [...] Insurance 1 Health Plan: MEDICARE Policy Number: [id number] Authorization Number: Insurance 2 Health Plan: AARP N Policy Number: [id number] Authorization Number: Insurance Primary Name : MEDICARE Policy Number: [id number] AARP N Policy Number: [id number] Historical Authorization Comments-Primary : No Authorization Comments Found TERRI JIMENEZ Rn-Utilization Review - 03/15/2020 10:19 EDT Electronically signed by Angel [facility] Conversion Medical Education Specialist Cerner at 12/20/2022 12:13 PM CDT documented in this encounter Plan of Treatment Not on file documented as of this encounter Visit Diagnoses Not on filedocumented in this encounter Care Teams Site Administrator Relationship Specialty Start Date End Date Bennie Allyson, PRODUCTION ZONE LEADER [address] [place] [address] PCP - General Nurse Practitioner 02/06/23 documented as of this encounter
--- OUTSIDE RECORDS SUMMARY | 2025-05-17 14:38 | XMS_ITS | Encounter Summary ---
Author Organization [employer] ([place], [place], [place], [place]) Address [address] [place] [address] Care Team Providers Care Rail Splitter Name Role Phone Allyson Avery APRN Primary Care Provider Encounter Details Date Type Department Care Team (Late st Contact Info) Description 03/14/2020 Transcribed Document [facility] [place] Family Medicine [address] [place] [address] ProviderTatiana MD [address] [place] [address] Social History Tobacco Use Types Packs/Day Years [...] on filedocumented in this encounter Care Teams Rail Splitter Relationship Specialty Start Date End Date Allyson Avery, MANUFACTURING PROJECT MANAGER [address] [address] PCP - General Nurse Practitioner 02/06/23 documented as of this encounter
--- OUTSIDE RECORDS SUMMARY | 2025-05-17 14:38 | XMS_ITS | Encounter Summary ---
Author Organization [employer] ([place], [place], [place], [place]) Address [address] [place] [address] Care Team Providers Care Control Systems Technician Name Role Phone Allyson Avery APRN Primary Care Provider Encounter Details Date Type Department Care Team (Late st Contact Info) Description 03/14/2020 Transcribed Document [facility] [place] Family Medicine [address] [place] [address] ProviderTatiana MD [address] [place] [address] Social History Tobacco Use Types Packs/Day Years [...] on filedocumented in this encounter Care Teams Control Systems Technician Relationship Specialty Start Date End Date Allyson Avery APRN [address] [address] PCP - General Nurse Practitioner 02/06/23 documented as of this encounter
--- OUTSIDE RECORDS SUMMARY | 2025-05-17 14:38 | XMS_ITS | Encounter Summary ---
Author Organization [employer] ([place], [place], [place], [place]) Address [address] [place] [address] Care Team Providers Care Hog Sawyer Name Role Phone Allyson Avery APRN Primary Care Provider Encounter Details Date Type Department Care Team (Late st Contact Info) Description 03/15/2020 Transcribed Document [facility] [place] Family Medicine [address] [place] [address] ProviderTatiana MD [address] [place] [address] Social History Tobacco Use Types Packs/Day Years [...] PAYTON GONZALEZ OTR/L - 03/15/2020 14:40 EDT Electronically signed by Aruna Ortiz Conversion An/Sqq [id number])15 Sonar System Journeyman Cerner at 12/20/2022 12:34 PM CDT documented in this encounter Plan of Treatment Not on file documented as of this encounter Visit Diagnoses Not on filedocumented in this encounter Care Teams Hog Sawyer Relationship Specialty Start Date End Date Allyson Avery, MATURITY CHECKER [address] [place] [address] PCP - General Nurse Practitioner 02/06/23 documented as of this encounter
--- OUTSIDE RECORDS SUMMARY | 2025-05-17 14:38 | XMS_ITS | Encounter Summary ---
Author Organization [employer] ([place], [place], [place], [place]) Address [address] [place] [address] Care Team Providers Care Inside Sales Consultant Name Role Phone Allyson Avery APRN Primary Care Provider [phone] Encounter Details Date Type Department Care Team (Late st Contact Info) Description 03/16/2020 Transcribed Document [facility] [place] [address] [place] [address] ProviderTatiana MD [address] [place] [address] Social History Tobacco Use Types Packs/Day Years [...] On: 03/16/2020 15:01 EDT by IGNACIA LYONS, RN-Recreation Therapist Initial Assessment I Previously Documented Living Environment [...] Son Enter Doctors Name : Allyson Avery MAIL OFFICER Does Patient have PCP Listed? : Yes Legal Guardian : No Date Hospital Obtained Advance Directive : 03/14/2020 EDT Is Guardianship Needed : No IGNACIA LYONS, RN-Recreation Therapist - 03/16/2020 15:01 EDT Initial Assessment II Sensory and Motor Deficits : None Current Home Treatments and Equipment : None Services and Community Resources : Home Health, Other: None IGNACIA LYONS, RN-Recreation Therapist - 03/16/2020 15:01 EDT Discharge Needs I Anticipated Discharge Date : 03/17/2020 EDT Anticipated Discharge To, CM : Home with family care Current Home Treatment/Equipment : Current Home Treatment/Equipment Current Home Treatments and Equipment: None (03/15/20 15:20:00) Post Acute/Home Treatments : None Documentation Status Complete : Yes IGNACIA LYONS RN-Recreation Therapist - 03/16/2020 15:01 EDT Discharge Needs II Professional Skilled Services : Professional Skilled Services Services and Community Resources: Home Health (03/15/20 15:20:00) Services and Community Resources : Home Health Needs Assistance with Transportation : No Discharge Options Discussed with Patient : Discharge transportation, DME, Home Health IGNACIA LYONS, RN-Recreation Therapist - 03/16/2020 15:01 EDT Narrative Note Narrative [...] 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 His daughter Jesika is also involved in his care [phone]. Patient's PCP is MARCO Duncan. 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 No prior rehab stay, home health, oxygen or DME. Patient's family will transport on discharge. DCP: Anticipate patient will discharge home with family. CM will follow for any needed referrals. CINDY GOMES, RN-Recreation Therapist - 03/15/20 15:28:05 IGNACIA LYONS, RN-Recreation Therapist - 03/16/2020 15:01 EDT documented in this encounter Plan of Treatment Not on file documented as of this encounter Visit Diagnoses Not on filedocumented in this encounter Care Teams Inside Sales Consultant Relationship Specialty Start Date End Date Allyson Avery, YOKO [address] [address] PCP - General Nurse Practitioner 02/06/23 documented as of this encounter
--- OUTSIDE RECORDS SUMMARY | 2025-05-17 14:38 | XMS_ITS | Encounter Summary ---
Author Organization [employer] ([place], [place], [place], [place]) Address [address] [place] [address] Care Team Providers Care Hand Deicer Element Winder Name Role Phone Allyson Avery APRN Primary Care Provider [phone] Encounter Details Date Type Department Care Team (Late st Contact Info) Description 03/17/2020 Transcribed Document [facility] [place] [address] [place] [address] ProviderTatiana MD [address], [place] [id number] Social History Tobacco Use Types Packs/Day Years [...] 03/17/2020 5:39 EDT Electronically signed by [facility] Conversion Manager Unit Cerner at 12/20/2022 12:26 PM CDT documented in this encounter Plan of Treatment Not on file documented as of this encounter Visit Diagnoses Not on filedocumented in this encounter Care Teams Hand Deicer Element Winder Relationship Specialty Start Date End Date AveryHiene, TIE CARRIER [address] [place] [address] PCP - General Nurse Practitioner 02/06/23 documented as of this encounter
--- OUTSIDE RECORDS SUMMARY | 2025-05-17 14:38 | XMS_ITS | Encounter Summary ---
Author Organization [employer] ([place], [place], [place], [place]) Address [address] [place] [address] Care Team Providers Care Children Teacher Name Role Phone Karlene Avery APRN Primary Care Provider Encounter Details Date Type Department Care Team (Late st Contact Info) Description 03/17/2020 Transcribed Document [facility] [place] Medicine [address] [place] [address] ProviderTatiana MD [address] [place] [address] Social History Tobacco Use Types Packs/Day Years Used Date Smoking Tobacco: Never Assessed Sex and Gender Information Value Date Recorded Sex Assigned at Not on file Legal Sex Male 5:33 PM CDT Gender Identity Not on file Sexual Orientation Not on file documented as of this encounter Miscellaneous Notes * Cerner Conversion Note - Tatiana ProviderMD - 03/17/2020 10:05 AM CDT [facility] [place] [address] PAT MENCHACA :1940 Visit Time:03/14/2020 Your Visit Summary Your Care Team Admitting Physician - ROMAN NGUYEN MD-INT GUANACO GUILLERMO MD-EMR PHY, UNKNOWN Attending Physician - ROMAN NGUYEN MD-GUANACO MCKEON MD-EMR Primary Care Physician - KARLENE AVERY APRN-FAM Referring Physician - SELF, REFERRED (REF), -UNK Your Diagnosis Atherosclerotic heart disease of [place] coronary artery without angina pectoris, Atherosclerotic heart disease of [place] coronary artery without angina pectoris Elevated troponin [...] 03/30 3pm Where: [address] [place] [address]- Business (1) Follow Up with KARLENE AVERY APRN-FAM When Within 1 week Where: [address] [place] [address]- Medications What How Much When Instructions Next Dose acetaminophen (Tylenol 325 mg oral tablet) 2 Tablet(s) Oral Every 4 Hours as needed for Pain (Mild 1-3) carvedilol (Coreg 25 mg oral tablet) 1 Tablet(s) Oral Two Times A Day Pickup at [facility] lisinopril (lisinopril 20 mg oral tablet) 1 Tablet(s) Oral Every Day This replaces Lisinopril/ HCTZ. [facility] allopurinol (allopurinol 100 mg oral tablet) 1 [...] 2 Capsule(s) Oral Every Day Pharmacy Information [facility]: [address] [place] [address] [place], [place] [id number] [phone] Take your medications faithfully. Do NOT skip [...] these instructions at home: Medicines ??? Take agjf-ggp-smqxiav and prescription medicines only as told by [...] and water are not available, use hand performance improvement coordinator. ? Change your dressing as told [...] your chest for several days. ??? Take qpha-fon-qbdonip and prescription medicines only as told by [...] 05/13/2013 Document Revised: 07/20/2019 Document Reviewed: 07/20/2019 [employer] Patient Education ?? 2020 [employer]. lisinopril (lyse [place] pril) Prinivil, Qbrelis, [...] have an allergic reaction if you are -Vietnamese. Call your doctor at once if you [...] may report side effects to FDA at 7-323-XXS-9206. What other drugs will affect lisinopril? Tell [...] drugs may affect lisinopril, including prescription and luvm-pch-ownofhq medicines, vitamins, and herbal products. Not all [...] to ensure that the information provided by [employer]. ('[employer]') is accurate, up-to-date, and complete, but no guarantee is made to that effect. Drug information contained herein may be time sensitive. [employer] information has been compiled for use by healthcare practitioners and consumers in the [place] and therefore [employer] does not warrant that uses outside of the [place] are appropriate, unless specifically indicated otherwise. [employer] drug information does not endorse drugs, diagnose patients or recommend therapy. [employer] drug information is an informational resource designed [...] effective or appropriate for any given patient. [employer] does not assume any responsibility for any aspect of healthcare administered with the aid of information [employer] provides. The information contained herein is not intended to cover all possible uses, directions, precautions, warnings, drug interactions, allergic reactions, or adverse effects. If you have questions about the drugs you are taking, check with your doctor, nurse or pharmacist. Copyright 9939-4161 [employer]. Version: 15.03. Revision Date: 06/23/2019. carvedilol (BRIAN [...] may report side effects to FDA at 7-253-PCI-1835. What other drugs will affect carvedilol? Sometimes it is not safe to use certain medications at the same time. Some drugs can affect your blood levels of other drugs you take, which may increase side effects or make the medications less effective. Other drugs may affect carvedilol, including prescription and hrxn-zvp-uuugzwv medicines, vitamins, and herbal products. Tell your [...] to ensure that the information provided by [employer]. ('[employer]') is accurate, up-to-date, and complete, but no guarantee is made to that effect. Drug information contained herein may be time sensitive. [employer] information has been compiled for use by healthcare practitioners and consumers in the [place] and therefore [employer] does not warrant that uses outside of the [place] are appropriate, unless specifically indicated otherwise. [employer] drug information does not endorse drugs, diagnose patients or recommend therapy. [employer] drug information is an informational resource designed [...] effective or appropriate for any given patient. [employer] does not assume any responsibility for any aspect of healthcare administered with the aid of information [employer] provides. The information contained herein is not intended to cover all possible uses, directions, precautions, warnings, drug interactions, allergic reactions, or adverse effects. If you have questions about the drugs you are taking, check with your doctor, nurse or pharmacist. Copyright 5036-2814 [employer]. Version: 16.01. Revision Date: 12/25/2018. Emergency Awareness [...] Assistance with quitting is available by contacting 9-707-SWYCNOW. This is a free resource providing counseling, [...] range between ( 0.0 and 7.0 ) [place] #: 0.41 K/uL -- Normal range between ( 0.16 and 1.00 ) [place] #: 0.16 x10(3)/uL -- Normal range between ( 0.00 and 0.80 ) [place] %: 10.1 % -- Normal range between [...] ) Urine Bilirubin Dipstick: Negative Urine Specific [place]: 1.021 -- Normal range between ( 1.005 and 1.030 ) Urine Type.: [facility] General Chemistry 03/16/2020 0:17 AM [...] was given the opportunity to ask questions. Patient/Control Clerk Food And Beverage Name: Patient/Control Clerk Food [employer] Beverage Signature: Relationship to Patient: Clinician/Hospital Control Clerk [employer] Bever[employer] Signature: Date: documented in this encounter Plan of Treatment Not on file documented as of this encounter Visit Diagnoses Not on filedocumented in this encounter Care Teams Children Teacher Relationship Specialty Start Date End Date Karlene Avery, MACHINE PACKER [address] [address] PCP - General Nurse Practitioner 02/06/23 documented as of this encounter
--- OUTSIDE RECORDS SUMMARY | 2025-05-17 14:38 | XMS_ITS | Clinical Summary ---
Author Organization [facility] Address [address] [place] [address] Care Team Providers Care Electric Transfer Operator Name Role Phone Allyson Avery APRN Primary Care Provider + [phone] Allergies No known active allergies Medications multivitamin [...] MOUTH DAILY 90 tablet 3 2 Active ranolazine (RANEXA) 500 MG 12 hr tablet Take 1 tablet by mouth 2 (Two) Times a Day. 4 Active Arginine 1000 MG tablet Take 1,000 mg by mouth Daily. 4 Active rosuvastatin (CRESTOR) 40 MG tablet TAKE 1 TABLET BY MOUTH ONCE WEEKLY 12 tablet 3 4 Active linaclotide (LINZESS) 290 MCG capsule capsule Take 1 capsule by mouth. Every other day Active Trulance 3 MG tablet Take 1 tablet by mouth Every Other Day. 5 Active docusate sodium (COLACE) 100 MG capsule Take 1 capsule by mouth 2 (Two) Times a Day. Active memantine (NAMENDA) 10 MG tabletIndicatio ns:Moderate cognitive impairment Take 1 tablet by mouth Daily. 60 tablet 5 5 026 Active carvedilol (COREG) 12.5 MG tablet Take 1 tablet by mouth 2 (Two) Times a Day With Meals. Active lisinopril (PRINIVIL,ZESTR IL) 10 MG tablet Take 1 tablet by mouth Daily. Active spironolactone (ALDACTONE) 25 MG tablet Take 1 tablet by mouth Daily. Active apixaban (ELIQUIS) 5 MG tablet tabletIndicatio ns:Atrial fibrillation, unspecified type Take 1 tablet by mouth Every 12 (Twelve) Hours. Stop taking clopidogrel (plavix) 180 tablet 1 5 Active amiodarone (PACERONE) 200 MG tabletIndicatio ns:Atrial fibrillation, unspecified type Take 1 tablet by mouth Daily. 5 Active amiodarone (PACERONE) 200 MG tabletIndicatio ns:Atrial fibrillation, unspecified type Take 1 tablet by mouth See Admin Instructions. Start amiodarone 200 mg twice daily for 10 days then 200 mg once daily. 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 Moderate lesion distal to the MONROY to the LAD 50-70% by Dr. Silva @ [facility] 12/09/14 LHC: 1/3 grafts occluded, [...] Encounters Date Type Department Care Team Description 05/10/[address] [facility] C[facility]IOLOG[facility] [address] [facility] [address] [place] [address] Mansoor Silva MD 05/01/[address] [facility] [address] [facility] [address] [place] [address] Mansoor Silva MD Med Refill 04/01/2025 Results Follow-Up [facility] ENDOCRINOLOGY [address] [place] [address] Rosa De Dios MD 03/26/2025 Results Follow-Up [facility] ENDOCRINOLOGY [address] [place] [address] Rosa De Dios MD 03/25/2025 1:00 PM EDT Office Visit [facility] ENDOCR[facility] [address] [place] [address] Rosa De Dios MD Hypothyroidism, unspecified type (Primary Dx); Elevated cortisol level; High serum renin; High catecholamines 03/25/2025 Travel 03/08/2025 Results Follow-Up [facility] [address] [facility] [address] [place] [address] Mansoor Silva MD 02/23/[address] [facility] [address] [facility] [address] [place] [address] Mansoor Silva MD from Last 3 Months [...] Description 07/20/2025 3:45 PM EST Office Visit [facility] ENDOCRIN[facility]Y [address] [facility] [address] [place] [address] Rosa De Dios MD [address] [facility] [place] [address] 07/26/2025 2:00 PM EST Office Visit [facility] NEUROLOGY [address] [place] [address] Monica Quintero, DNP, VICE PRESIDENT [employer] [address] [place] [address] 10/28/2025 1:30 PM EST Office Visit [facility] [address] [facility] [address] [place] [address] Mansoor Silva MD [address] [facility] [address] [place] [address] Health Maintenance Due Date Last Done Comments DIABETIC FOOT EXAM 1950 URINE MICROALBUMIN-CREATININ E RATIO (uACR) 1950 Pneumococcal Vaccine 50+ (1 of 2 - PCV) 1958 05/22/2016 ZOSTER VACCINE (1 of 2) 1989 RSV Vaccine - Adults (1 - 1- dose 75+ series) 2014 ANNUAL WELLNESS VISIT 03/15/2021 DIABETIC EYE EXAM 06/13/2021 06/13/2020 HEMOGLOBIN A1C 01/18/2025 07/21/2024, 06/03, 01/04/2023, Additional history exists INFLUENZA VACCINE 04/02/2025 07/21/2024, , 07/21/2024, Additional history exists COVID-19 Vaccine (4 - 2024-2 6 season) 2025 10/02/2021, 12/02/2020, 11/03/2020 LIPID PANEL 07/21/2025 07/21/2024, 09/02, 06/25/2023, Additional history exists TDAP/TD VACCINES (2 - Tdap) 04/18/2032 04/18/2022 Procedures Procedure Name Priority Date/Time Associated Diagnosis Comments REMOTE DEVICE CHECK 05/10/2025 2:00 AM EDT CORTISOL - AM Routine 03/29/2025 7:45 AM [...] Cortisol - AM (03/29/2025 7:45 AM EDT) Cortisol - AM 2.5(L) 6.2 - 19.4 ug/dL [facility] 03/29/2025 7:45 AM EDT 03/29/2025 Narrative [facility] (AMBULATORY) - 03/30/2025 2:36 PM EDT Performed at: - [address] [id number] Family Life Educator: Colin Ch PhD, Phone: [phone] Patient Fasting: N us Rosa De Dios MD LAB BLOOD ORDERABLES Final Resu lt [facility] [address] [place] [address], [place] [phone] [facility] [address] [place] [address], [place] [phone] * Metanephrines, Frac. Free, Plasma (03/25/2025 1:40 PM EDT) Normetanephrine 42.9 0.0 - 297.2 pg/mL 04/06/2025 9:08 PM EDT [facility] Metanephrine <25.0 0.0 - 88.0 pg/mL 04/06/2025 9:08 PM EDT [facility] Blood Venipuncture / Unknown 03/25/2025 1:40 PM EDT 03/25/2025 1:41 PM EDT Narrative [facility] - 04/06/2025 9:08 PM EDT Test(s) 360664-Jaccoczxlizaier, Pl; 563413-Zndtvjkamprg, Pl was developed and its performance characteristics determined by [facility]. It has not been cleared or approved by the Food and Drug Administration. Performed at: - [address] [id number] Family Life Educator: Van Dang MD, Phone: [phone] us Rosa De Dios MD LAB BLOOD ORDERABLES Final Resu lt Performing Organization Address [facility] de Phone Number [facility] [address] [place] [address], * Aldosterone / Renin Ratio (03/25/2025 1:40 [...] LAB - 03/30/2025 11:10 AM EDT Test(s) [id number]-Nmuslsqdqtk; 961056-Zcfbn Activity, Plasma was developed and its performance characteristics determined by [facility]. It has not been cleared or approved by the Food and Drug Administration. Performed at: 01 - [address] [id number] Family Life Educator: Van Dang MD, Phone: [phone] Rosa De Dios MD LAB BLOOD ORDERABLES Final Resu lt Performing Organization Address [facility] de Phone Number [facility] [address] [place] [address], * (ABNORMAL) Catecholamines, Fractionated, Plasma (03/25/2025 1:40 PM EDT) Norepinephrine 1553(H) 115 - 524 pg/mL 03/31/2025 10:10 AM EDT [facility] Epinephrine 116.8(H) 0.0 - 55.4 pg/mL 03/31/2025 10:10 AM EDT [facility] Dopamine 28.7 0.0 - 36.7 pg/mL 03/31/2025 10:10 AM EDT [facility] Comment: Catecholamines, Plasma reference intervals based on patient in supine position for at least 20 minutes. Blood Venipuncture / Unknown 03/25/2025 1:40 PM EDT 03/25/2025 1:41 PM EDT Narrative [facility] - 03/31/2025 10:10 AM EDT Test(s) [id number]-Bvivrkmkjojpmj; 335361-Gydobykzclz; 743119-Sxloxkhw was developed and its performance characteristics determined by [facility]. It has not been cleared or approved by the Food and Drug Administration. Performed at: - [address] [id number] Family Life Educator: Van Dang MD, Phone: [phone] us Rosa De Dios MD LAB BLOOD ORDERABLES Final Resu lt Performing Organization Address City/[facility]/ZIP Co de Phone Number [facility] [address] [place] [address], [place] [phone] * TSH (03/25/2025 1:40 PM EDT) TSH 1.380 0.270 - 4.200 uIU/mL 03/25/2025 11:44 PM EDT [facility] Blood Structure of left upper limb / Unknown Venipuncture / Unknown 03/25/2025 1:40 PM EDT 03/25/2025 1:41 PM EDT us Rosa De Dios MD LAB BLOOD ORDERABLES Final Resu lt [facility]
[address] [place] [address], [place] [phone] * T4, Free (03/25/2025 1:40 PM EDT) Free T4 1.25 0.92 - 1.68 ng/dL 03/25/2025 11:44 PM EDT [facility] Blood Structure of left upper limb / Unknown Venipuncture / Unknown 03/25/2025 1:40 PM EDT 03/25/2025 1:41 PM EDT us Rosa De Dios MD LAB BLOOD ORDERABLES Final Resu lt [facility]
[address] [place] [address], * (ABNORMAL) Basic Metabolic Panel (03/25/2025 1:40 PM EDT) Only the most recent of2 resultswithin the time period is included. Glucose 130(H) 65 - 99 mg/dL 03/25/2025 11:43 PM EDT [facility] BUN 33.0(H) 8.0 - 23.0 mg/dL 03/25/2025 11:43 PM EDT [facility] Creatinine 1.14 0.76 - 1.27 mg/dL 03/25/2025 11:43 PM EDT [facility] Sodium 140 136 - 145 mmol/L 03/25/2025 11:43 PM EDT [facility] Potassium 4.8 3.5 - 5.2 mmol/L 03/25/2025 11:43 PM EDT [facility] Chloride 102 98 - 107 mmol/L 03/25/2025 11:43 PM EDT [facility] CO2 26.2 22.0 - 29.0 mmol/L 03/25/2025 11:43 PM EDT [facility] Calcium 10.5 8.6 - 10.5 mg/dL 03/25/2025 11:43 PM EDT [facility] BUN/Creatinine Ratio 28.9(H) 7.0 - 25.0 03/25/2025 11:43 PM EDT [facility] Anion Gap 11.8 5.0 - 15.0 mmol/L 03/25/2025 11:43 PM EDT [facility] eGFR 63.0 >60.0 mL/min/1.7 3 03/25/2025 11:43 PM EDT [facility] Blood Structure of left upper limb / Unknown Venipuncture / Unknown 03/25/2025 1:40 PM EDT 03/25/2025 1:41 PM EDT Narrative [facility] - 03/25/2025 11:43 PM EDT GFR [...] MD LAB BLOOD ORDERABLES Final Resu lt [facility]
[address] [place] [address], * Remote Device Check (03/13/2025 12:00 AM EDT) Only the most recent of2 resultswithin the time period is included. Date Time Interrogation Session [id number] [facility] Implantable Pulse Generator Hospital Administrator [facility] Implantable Pulse Generator Type ICD [facility] Implantable Pulse Generator Model [id number] Ellipse(TM) [facility] Implantable Pulse Generator Serial Number [id number] [facility] Implantable Pulse Generator Implant Date [id number] [facility] Battery Voltage 2.890 [facility] Battery PSYCHIATRY RESIDENT Trigger 2.590 [facility] Battery Status MOS [facility] Gokul Statistic RA Percent Paced 98.70 [facility] Gokul Statistic RV Percent Paced 97.10 [facility] Lead Channel RA Sensing Intrinsic Amplitude 3.500 [facility] Lead Channel Setting RA Sensing Sensitivity 0.30 [facility] Lead Channel RA Impedance Value 410 [facility] Lead Channel RA Pacing Threshold Amplitude 0.630 [facility] Lead Channel RA Pacing Threshold Pulse Width 0.5 [facility] Lead Channel RA Measurements Date and Time 20250313 [facility] Lead Channel Setting RA Pacing Amplitude 1.630 [facility] Lead Channel Setting RA Pacing Pulse Width 0.5 [facility] Lead Channel RV Sensing Intrinsic Amplitude 12.000 [facility] Lead Channel Setting RV Sensing Sensitivity 0.50 [facility] Lead Channel RV Impedance Value 360 [facility] Lead Channel RV Pacing Threshold Amplitude 0.750 [facility] Lead Channel RV Pacing Threshold Pulse Width 0.5 [facility] Lead Channel RV Measurements Date and Time 20250313 [facility] Lead Channel Setting RV Pacing Amplitude 1.000 [facility] Lead Channel Setting RV Pacing Pulse Width 0.5 [facility] Gokul Setting Mode (NBG Code) DDDR [facility] Gokul Setting Lower Rate Limit 70 [facility] Gokul Setting AT Mode Switch Rate 180 [facility] Gokul Setting Maximum Tracking Rate 120 [facility] Gokul Setting Maximum Sensor Rate 120 [facility] Gokul Setting PAV Delay 200 [facility] Gokul Setting IZZY Delay 180 [facility] Therapy Statistic Recent Shocks Delivered 0 [facility] Therapy Statistic Recent Shocks Aborted 0 [facility] Therapy Statistic Recent ATP Delivered 0 [facility] SHOCK MEASURED IMPEDANCE 77 [facility] Zone Setting Type Category VT [facility] IDC RATE 1 130 [facility] THERAPIES 3 x Burst+Scan,3 x Burst+Scan [facility] Zone Setting Status On [facility] Zone ID 1 [facility] Zone Setting Type Category VT [facility] IDC RATE 1 200 [facility] THERAPIES 3 x Burst+Scan, 25J, 30J, 36J x 2 [facility] Zone Setting Status On [facility] Zone ID 2 [facility] Zone Setting Type Category VF [facility] IDC RATE 1 240 [facility] THERAPIES 30J, 36J, 36J x 4 [facility] Zone Setting Status On [facility] Zone ID 3 [facility] 03/13/2025 us Mansoor Silva MD CV IMPLANTABLE CARDIAC DEVICE Final Result Performing Organization Address City/[facility] Co de Phone Number [facility] * (ABNORMAL) proBNP (03/03/2025 8:53 AM EDT) [facility] proBNP 785(H) 0 - 486 pg/mL [facility] [...] 03/03/2025 8:53 AM EDT 03/03/2025 Narrative [facility] ([facility]) - 03/04/2025 11:11 AM EDT Performed at: - [facility] [id number] Family Life Educator: Colin Ch PhD, Phone: [phone] Patient Fasting: N Mansoor Silva MD LAB BLOOD ORDERABLES Final Re sult Performing Organization Address [facility] Co de Phone Number [facility] ([facility]UL[facility]) [address] [place] [address], [facility] [address] [place] [address], * LABS SCANNED (03/03/2025) Mansoor Silva MD LAB BLOOD ORDERABLES Final Re sult from Last 3 Months Insurance MEDICARE A & B HEALTH CARE OPTIONS Advance Directives Documents on File Type Date Recorded Patient Cuffing Machine Operator Expl anation POWER OF REPAIR TECHNICIAN - SCAN 03/20/2021 10:31 AM POWER OF REPAIR TECHNIC[place], 05/31/2020 LIVING WILL - SCAN 03/20/2021 10:31 AM IBAN BUTLER, 06/23/2017 Care Teams Electric Transfer Operator Relationship Specialty Start Date End Date Allyson Avery APRN [address] [place] [address] [facility] [address] PCP - General Internal Medicine 07/22/23
--- OUTSIDE RECORDS SUMMARY | 2025-05-17 14:38 | XMS_ITS | Encounter Summary ---
Author Organization [employer] ([place], [place], [place], [place]) Address [address] [place] [address] Care Team Providers Care Customer Engagement Representative Name Role Phone Allyson Avery APRN Primary Care Provider Encounter Details Date Type Department Care Team (Late st Contact Info) Description 03/16/2020 Transcribed Document [facility] [place] [address] [place] [address] ProviderTatiana MD [address] [place] [address] Social History Tobacco Use Types Packs/Day Years [...] such that a new [employer] lead enterprise architect model 7122Q, serial #[id number], could be actively fixed to the right [...] is a [employer] lead model 5076, serial #[id number], had a chronic capture threshold of 0.5 V with lead impedance of 400 ohms, sensed P-wave greater than [address] [employer] pulse generator model [id number], serial #[id number], was attached to the leads. The pocket [...] device clinic followup, and home remote monitoring. /[id number] Parish Pérez MD TCR/AQ / TCR / MODL /[id number] Electronically signed by Interface, [facility] Conversion Senior Associate Cerner at 12/20/2022 12:11 PM CDT documented in this encounter Plan of Treatment Not on file documented as of this encounter Visit Diagnoses Not on filedocumented in this encounter Care Teams Customer Engagement Representative Relationship Specialty Start Date End Date Allyson Avery, EDITORIAL ASSISTANT [address] [phone] PCP - General Nurse Practitioner 02/06/23 documented as of this encounter
--- OUTSIDE RECORDS SUMMARY | 2025-05-17 14:38 | XMS_ITS | Encounter Summary ---
Author Organization [employer] ([place], [place], [place], [place]) Address [address] [place] [address] Care Team Providers Care Lean Sensei Name Role Phone Allyson Avery APRN Primary Care Provider [phone] Encounter Details Date Type Department Care Team (Late st Contact Info) Description 03/14/2020 Transcribed Document [facility] Family Medicine [address] [place] [address] ProviderTatiana MD [address] [place] [address] Social History Tobacco Use Types Packs/Day Years [...] 03/14/2020 9:24 EDT Electronically signed by Angel [facility] Conversion Salesperson Floor Coverings Cerner at 12/20/2022 12:06 PM CDT documented in this encounter Plan of Treatment Not on file documented as of this encounter Visit Diagnoses Not on filedocumented in this encounter Care Teams Lean Sensei Relationship Specialty Start Date End Date AveryHiene, HEAD END DESIZING MACHINE OPERATOR [address] [place] [address] PCP - General Nurse Practitioner 02/06/23 documented as of this encounter
--- OUTSIDE RECORDS SUMMARY | 2025-05-17 14:38 | XMS_ITS | Encounter Summary ---
Author Organization [employer] ([place], [place], [place], [place]) Address [address] [place] [address] Care Team Providers Care Motor Runner Name Role Phone Allyson Avery APRN Primary Care Provider [phone] Encounter Details Date Type Department Care Team (Late st Contact Info) Description 03/14/2020 Transcribed Document [facility] [place] Family Medicine [address] [place] [address] ProviderTatiana MD [address] [place] [address] Social History Tobacco Use Types Packs/Day Years [...] on filedocumented in this encounter Care Teams Motor Runner Relationship Specialty Start Date End Date Allyson Avery, YOKO [address] [phone] PCP - General Nurse Practitioner 02/06/23 documented as of this encounter
--- OUTSIDE RECORDS SUMMARY | 2025-05-17 14:38 | XMS_ITS | Encounter Summary ---
Author Organization [employer] ([place], [place], [place], [place]) Address [address] [place] [address] Care Team Providers Care Tower Truck Driver Name Role Phone Allyson Avery APRN Primary Care Provider Encounter Details Date Type Department Care Team (Late st Contact Info) Description 03/17/[address] [facility] [place] [address] [place] [address] ProviderTatiana MD [address] [place] [address] Social History Tobacco Use Types Packs/Day Years [...] Associated Diagnoses: None Author: JOSHUA CHAPMAN APRN [facility] PROGRESS NOTE: DIAGNOSIS: 1. VT [...] kg (03/15/20 04:00:00) Routine Weight Entry Format: Donley (03/15/20 04:00:00) Routine Weight Source: Bed scale (03/15/20 04:00:00) Routine Weight, Ounces: 2 oz (03/15/20 04:00:00) Routine Weight, Pounds: 173 lb (03/15/20 04:00:00) Freeman Body Weight: 77 kg (03/14/20 08:11:00) Intake [...] on filedocumented in this encounter Care Teams Tower Truck Driver Relationship Specialty Start Date End Date Allyson Avery, MANAGER GYN [address] [place] [address] PCP - General Nurse Practitioner 02/06/23 documented as of this encounter
--- OUTSIDE RECORDS SUMMARY | 2025-05-17 14:38 | XMS_ITS | Encounter Summary ---
Author Organization [employer] ([place], [place], [place], [place]) Address [address] [place] [address] Care Team Providers Care Distributing Clerk Name Role Phone Bennie Allyson YOKO Primary Care Provider [phone] Encounter Details Date Type Department Care Team (Late st Contact Info) Description 03/15/2020 Transcribed Document [facility] [place] Family Medicine [address] [place] [address] ProviderTatiana MD [address] [place] [address] Social History Tobacco Use Types Packs/Day Years [...] on filedocumented in this encounter Care Teams Distributing Clerk Relationship Specialty Start Date End Date Allyson Avery, LINEN SORTER [address] [place] [address] PCP - General Nurse Practitioner 02/06/23 documented as of this encounter
--- OUTSIDE RECORDS SUMMARY | 2025-05-17 14:38 | XMS_ITS | Encounter Summary ---
Author Organization [employer] ([place], [place], [place], [place]) Address [address] [place] [address] Care Team Providers Care One Piece Expansion Maker Hand Name Role Phone Allyson Avery APRN Primary Care Provider Encounter Details Date Type Department Care Team (Late st Contact Info) Description 03/15/[address] [facility] [place] Family Medicine [address] [place] [address] ProviderTatiana MD [address] [place] [address] Social History Tobacco Use Types Packs/Day Years [...] On: 03/15/2020 15:20 EDT by CINDY GOMES RN-Rat Farmer Initial Assessment I Previously Documented Living Environment [...] Advance Directive : 03/14/2020 EDT CINDY GOMES RN-Rat Farmer - 03/15/2020 15:20 EDT Initial Assessment II Sensory and Motor Deficits : None Current Home Treatments and Equipment : None CINDY GOMES RN-Rat Farmer - 03/15/2020 15:20 EDT Discharge Needs I Anticipated Discharge Date : 03/17/2020 EDT Anticipated Discharge To, CM : Home with family care Current Home Treatment/Equipment : Current Home Treatment/Equipment No qualifying data available. Post Acute/Home Treatments : None Documentation Status Complete : Yes CINDY GOMES RN-Rat Farmer - 03/15/2020 15:20 EDT Discharge Needs II Professional Skilled Services : Professional Skilled Services No qualifying data available. 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 Plan C today. 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 His daughter Jesika is also involved in his care [phone]. Patient's PCP is MARCO Duncan. 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 No prior rehab stay, home health, oxygen or DME. Patient's family will transport on discharge. DCP: Anticipate patient will discharge home with family. CM will follow for any needed referrals. CINDY GOMES RN-Rat Farmer - 03/15/2020 15:20 EDT documented in this encounter Plan of Treatment Not on file documented as of this encounter Visit Diagnoses Not on filedocumented in this encounter Care Teams One Piece Expansion Maker Hand Relationship Specialty Start Date End Date Allyson Avery, DOWEL STICKER OPERATOR [address] [address] PCP - General Nurse Practitioner 02/06/23 documented as of this encounter
--- OUTSIDE RECORDS SUMMARY | 2025-05-17 14:38 | XMS_ITS | Encounter Summary ---
Author Organization [employer] ([place], [place], [place], [place]) Address [address] [place] [address] Care Team Providers Care Ladle Mechanic Name Role Phone Allyson Avery APRN Primary Care Provider [phone] Reason for Referral * Ultrasound (Routine) - Closed Specialty Diagnoses / Procedures Referred By Venancio t Referred To Contact Diagnoses Cold extremities Procedures Ultrasound lower extremity arteries complete Allyson Aevry APRN [address] [address] Phone: tel: fax: Referral ID Status Reason Start Date Expiration Date Visits Re quested Visits Authorized [id number] Closed 01/15/2023 07/14/2023 1 1 Encounter Details Date Type Department Care Team (Late st Contact Info) Description 01/15/2023 Outside Orders [facility] Central Scheduling 1 [place] [address] Allyson Avery APRN [address] [address] Cold extremities (Primary Dx) Social [...] FINDINGS: RIGHT LOWER EXTREMITY. Velocities cm/sec : CONCRETE BUCKET HOOKER: WNL SFA Mid: WNL SFA Dist: WNL POP: WNL PT: WNL PT Ankle: WNL DP distal: WNL VONNIE: NA Waveforms are triphasic . LEFT LOWER EXTREMITY. Velocities cm/sec : CONCRETE BUCKET HOOKER: WNL SFA Mid: WNL SFA Dist: WNL [...] FINDINGS: RIGHT LOWER EXTREMITY. Velocities cm/sec : CONCRETE BUCKET HOOKER: WNL SFA Mid: WNL SFA Dist: WNL POP: WNL PT: WNL PT Ankle: WNL DP distal: WNL VONNIE: NA Waveforms are triphasic . LEFT LOWER EXTREMITY. Velocities cm/sec : CONCRETE BUCKET HOOKER: WNL SFA Mid: WNL SFA Dist: WNL [...] extremities documented in this encounter Care Teams Ladle Mechanic Relationship Specialty Start Date End Date Allyson Avery, YOKO [address] [place] [address] PCP - General Nurse Practitioner 02/06/23 documented as of this encounter
--- OUTSIDE RECORDS SUMMARY | 2025-05-17 14:38 | XMS_ITS | Encounter Summary ---
Author Organization [employer] ([place], [place], [place], [place]) Address [address] [place] [address] Care Team Providers Care Deck Worker Name Role Phone Allyson Avery APRN Primary Care Provider Encounter Details Date Type Department Care Team (Late st Contact Info) Description 03/17/2020 Transcribed Document [facility] [place] [address] [place] [address] ProviderTatiana MD [address] [place] [address] Social History Tobacco Use Types Packs/Day Years [...] ~5 lateral steps with Min A and PIECER UP. Patient did not meet any of his penitentiary goals due to assistance required with all functional activities and impaired endurance tolerance. PT has reviewed and agrees with note. DERREK HEAD, PT - 03/17/2020 14:01 EDT Detention Goals Mobility/Bed Mobility LTG PT Grid Goal [...] on filedocumented in this encounter Care Teams Deck Worker Relationship Specialty Start Date End Date Allyson Avery APRN [address] [address] PCP - General Nurse Practitioner 02/06/23 documented as of this encounter
--- OUTSIDE RECORDS SUMMARY | 2025-05-17 14:38 | XMS_ITS | Encounter Summary ---
Author Organization [employer] ([place], [place], [place], [place]) Address [address] [place] [address] Care Team Providers Care Coordinate Measuring Machine Programmer Name Role Phone Allyson Avery YOKO Primary Care Provider [phone] Encounter Details Date Type Department Care Team (Late st Contact Info) Description 03/17/2020 Transcribed Document [facility] Radiology 1 [place] [address] Jf Gallagher MD [address] [place] [address] [address] [place] [address] Social History Tobacco Use Types Packs/Day Years [...] Author: JF GALLAGHER MD-INT Subjective PCP: [facility] DOA: 03/13/2020 DOD: 03/17/2020 HPI: 79 year-old gentleman admitted to the hospital with a near syncopal episode and possibly V. tach CODE STATUS: Modified code as documented in the chart intubation and full treatment but no ACLS CONSULTS: Cardiology, [facility] WORKUP / PROCEDURES: Cardiac Cath, performed by [...] the anterior wall. No mitral insufficiency noted. [place] CORONARY ARTERIOGRAPHY: Left coronary artery: Left main [...] advanced such that a new [employer]. Ramana analytical lead model 7122Q, serial #[id number], could be actively fixed to the right [...] is a Medtronic lead model 5076, serial #[id number], had a chronic capture threshold of 0.5 V with lead impedance of 400 ohms, sensed P-wave greater than [address] Ramana pulse generator model ET2498, serial #[id number], was attached to the leads. The pocket [...] Results Review Radiology Results (Last 48 hours) [id number] -- 03/14/2020 08:12 CR Chest 1 Vw [...] on filedocumented in this encounter Care Teams Coordinate Measuring Machine Programmer Relationship Specialty Start Date End Date Allyson Avery, RENTAL CAR FERRY DRIVER [address] [place] [address] PCP - General Nurse Practitioner 02/06/23 documented as of this encounter
--- OUTSIDE RECORDS SUMMARY | 2025-05-17 14:38 | XMS_ITS | Encounter Summary ---
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 PT will follow up as time permits. JAKE HOLLINGSWORTH, PT - 03/15/2020 14:55 EDT documented in this encounter Plan of Treatment Not on file documented as of this encounter Visit Diagnoses Not on filedocumented in this encounter Care Teams Edge Cutting Machine Operator Relationship Specialty Start Date End Date Allyson Avery, TOWEL ROLLING MACHINE OPERATOR [address] [place] [address] PCP - General Nurse Practitioner 02/06/23 documented as of this encounter
--- OUTSIDE RECORDS SUMMARY | 2025-05-17 14:38 | XMS_ITS | Encounter Summary ---
Author Organization [employer] ([place], [place], [place], [place]) Address [address] [place] [address] Care Team Providers Care Supervisor Furnace Process Name Role Phone Allyson Avery APRN Primary Care Provider Encounter Details Date Type Department Care Team (Late st Contact Info) Description 03/15/2020 Transcribed Document [facility] [place] [address] [place] [address] ProviderTatiana MD [address] [place] [address] Social History Tobacco Use Types Packs/Day Years [...] On: 03/15/2020 15:28 EDT by CINDY GOMES RN-Camera Control OperatorPolice Sergeant Precinct Progress Note Discharge Arrangements : Patient Post-Acute [...] Attend Multidisciplinary Rounds? 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 Plan [facility] today. 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 His daughter Jesika is also involved in his care [phone]. Patient's PCP is MACRO Duncan. 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 No prior rehab stay, home health, oxygen or DME. Patient's family will transport on discharge. DCP: Anticipate patient will discharge home with family. CM will follow for any needed referrals. CINDY GOMES RN-Camera Control Operator - 03/15/2020 15:28 EDT documented in this encounter Plan of Treatment Not on file documented as of this encounter Visit Diagnoses Not on filedocumented in this encounter Care Teams Supervisor Furnace Process Relationship Specialty Start Date End Date Allyson Avery APRN [address] [address] PCP - General Nurse Practitioner 02/06/23 documented as of this encounter
--- OUTSIDE RECORDS SUMMARY | 2025-05-17 14:38 | XMS_ITS | Encounter Summary ---
Author Organization [employer] ([place], [place], [place], [place]) Address [address] [place] [address] Care Team Providers Care Chief Construction Inspector Name Role Phone Allyson Avery APRN Primary Care Provider Encounter Details Date Type Department Care Team (Late st Contact Info) Description 03/15/2020 Transcribed Document [facility] [place] Family Medicine [address] [place] [address] ProviderTatiana MD [address] [place] [address] Social History Tobacco Use Types Packs/Day Years [...] 03/15/2020 4:00 EDT by Rudolph Mcadams Care [facility] Height and Weight, Routine Routine Weight Source : Bed scale Routine Weight Entry Format : [place] Routine Weight, Pounds : 173 lb Routine Weight, Ounces : 2 oz Routine Weight Calculation : 78.69 kg Height Source : Stated Height Entry Format : [place] Height, Feet : 6 ft Height, Inches [...] filedocumented in this encounter Care Teams Chief Construction Inspector Relationship Specialty Start Date End Date Allyson Avery, SALES AND PRODUCTION MANAGER [address] [place] [address] PCP - General Nurse Practitioner 02/06/23 documented as of this encounter
--- OUTSIDE RECORDS SUMMARY | 2025-05-17 14:38 | XMS_ITS | Encounter Summary ---
Author Organization [employer] ([place], [place], [place], [place]) Address [address] [place] [address] Care Team Providers Care Apple Picking Supervisor Name Role Phone Allyson Avery YOKO Primary Care Provider Encounter Details Date Type Department Care Team (Late st Contact Info) Description 03/14/2020 Transcribed Document [facility] Radiology 1 [place] [address] Jf Gallagher MD [address] [place] [address] [address] [place] [address] Social History Tobacco Use Types Packs/Day Years [...] None Author: JF GALLAGHER MD-INT Subjective PCP: [facility] DOA: 03/13/2020 DOD: HPI: 79 year-old gentleman admitted to the hospital with a near syncopal episode and possibly V. tach CODE STATUS: Modified code as documented in the chart intubation and full treatment but no ACLS CONSULTS: Cardiology, [facility] WORKUP / PROCEDURES: HOSPITAL FOLLOWUP: 03/14/2020 [...] Results Review Radiology Results (Last 48 hours) [id number] -- 03/14/2020 08:12 CT Head WO (03/13/2020 [...] on filedocumented in this encounter Care Teams Apple Picking Supervisor Relationship Specialty Start Date End Date Allyson Avery, SENIOR ELECTRONICS DESIGN ENGINEER [address] [address] PCP - General Nurse Practitioner 02/06/23 documented as of this encounter
--- OUTSIDE RECORDS SUMMARY | 2025-05-17 14:38 | XMS_ITS | Encounter Summary ---
Author Organization [employer] ([place], [place], [place], [place]) Address [address] [place] [address] Care Team Providers Care Wad Compressor Operator Adjuster Name Role Phone Allyson Avery APRN Primary Care Provider Encounter Details Date Type Department Care Team (Late st Contact Info) Description 03/14/2020 Transcribed Document [facility] [place] [address] [place] [address] ProviderTatiana MD [address] [place] [address] Social History Tobacco Use Types Packs/Day Years [...] Unaccompanied Legal Guardian : No Support Person/Patient Mathematical Physicist : Yes Heather Daniels Rn - 03/14/2020 9:46 EDT Support Person/Pt Rep Name : Albertina Sow RN - 03/16/2020 9:18 EDT Contact Password : Heather Emerson Rn - 03/14/2020 9:46 EDT Support Person/Pt Rep Contact Information : [phone] Albertina Young RN - 03/16/2020 9:18 EDT [...] From : Patient, Daughter Primary Language : Swedish Preferred Communication Mode : Verbal Communication Barrier : None, Other: hearing Senior Software Engineering Manager Needed : No Heather Daniels Rn - [...] Scale Risk Level : 25-45 Medium Risk [place] Fall Interventions : Bed in low position, [...] Source : Stated Height Entry Format : [place] Height, Feet : 6 ft(Converted to: 183 cm, 72 Inch) Height, Inches : 0 Inch(Converted to: 0 ft 0 Inch, 0.00 cm) Clinical Height : 182.88 cm Weight Source : Bed scale Weight Entry Format : [place] Clinical Dosing Weight : 78.21 kg Weight, Pounds : 172 lb Weight, Ounces : 1 oz Body Surface Area (BSA) : 2 m2 Body Mass Index : 23.4 kg/m2 [place] Body Weight : 77 kg Heather Daniels [...] Heather Daniels Rn - 03/14/2020 9:46 EDT [place] Suicide Severity Rating Scale (C-SSRS) CSSRS Past [...] on filedocumented in this encounter Care Teams Wad Compressor Operator Adjuster Relationship Specialty Start Date End Date Allyson Avery APRN [address] [address] PCP - General Nurse Practitioner 02/06/23 documented as of this encounter
--- OUTSIDE RECORDS SUMMARY | 2025-05-17 14:38 | XMS_ITS | Encounter Summary ---
Author Organization [employer] ([place], [place], [place], [place]) Address [address] [place] [address] Care Team Providers Care Proof Technician Helper Name Role Phone Avery, Allyson YOKO Primary Care Provider Encounter Details Date Type Department Care Team (Late st Contact Info) Description 03/13/2020 Transcribed Document [facility] [place] [address] [place] [address] ProviderTatiana MD [address] [place] [address] Social History Tobacco Use Types Packs/Day Years [...] EDT Height Source Stated Height Entry Format [place] Height/Length, [place] (ft) 6 ft Height/Length [place] 0 Inch CLINICALHEIGHT 182.88 cm [place] Body Weight 76.59 kg Weight Source, ED Critical estimated dosing weight Weight Entry Format [place] Weight American lb 175 lb CLINICALWEIGHT 79.55 kg Body [...] Triage: ED C-SSRS: ED Clinical Reconciliation: ED stain wiper: Saline Lock Insert: . Electrocardiogram: Time 03/13/2020 21:42:00, rate 55, No ST changes, no ectopy, normal [place] & QRS intervals, EP Interp, The Rhythm [...] % 26.8 % Lymph # 1.30 x10(3)/uL Maries % 10.5 % HI Maries # 0.51 K/uL Eos % 4.1 % Eos # 0.20 x10(3)/uL Baso % 1.2 % Baso # 0.06 x10(3)/uL Slide Review No IG# 0.02 x10(3)/uL IG% 0.40 % Urine Type. U CleanCatch Urine Color Yellow Urine Appearance Clear Urine Specific [place] 1.021 Urine pH Dipstick 6.5 Urine Leukocyte Esterase Negative Urine Nitrite Negative Urine Protein Dipstick Negative Urine Glucose Dipstick Negative Urine Ketones Dipstick Negative Urine Urobilinogen Dipstick 0.2 EU/dL Urine Bilirubin Dipstick Negative Urine Blood Dipstick Negative Ur Mucous Trace . Radiology results: Radiology Results (Last 48 hours) [id number] -- 03/13/2020 21:29 CT Head WO (03/13/2020 [...] - 03/13/2020 22:40:00 , ROMAN NGUYEN MD-INT, [facility] Hospitalist.. Plan Condition: Stable. Orders: Launch Orders Admit/Transfer/Discharge: Admit to Inpatient (Order): Start: 03/13/2020 22:50 EDT, Admit reason: near syncope/TIA/elevated troponin,palpitations, Estimated length of stay 2 Midnights or LONGER, Level of Care: Med-Surg with telemetry, Admitting: ROMAN NGUYEN MD-INT. Notes: I certify that the MLP/TOASTER OPERATOR performed the services as delegated. , Discussed with Dr. Abel and agrees with plan of care.. documented in this encounter Plan of Treatment Not on file documented as of this encounter Visit Diagnoses Not on filedocumented in this encounter Care Teams Proof Technician Helper Relationship Specialty Start Date End Date Allyson Avery APRN [address] [place] [id number] PCP - General Nurse Practitioner 02/06/23 documented as of this encounter
--- OUTSIDE RECORDS SUMMARY | 2025-05-17 14:38 | XMS_ITS | Encounter Summary ---
Author Organization [employer] ([place], [place], [place], [place]) Address [address] [place] [address] Care Team Providers Care Eye Specialist Name Role Phone Allyson Avery APRN Primary Care Provider [phone] Encounter Details Date Type Department Care Team (Late st Contact Info) Description 03/16/2020 Transcribed Document [facility] [place] [address] [place] [address] ProviderTatiana MD [address] [place] [address] Social History Tobacco Use Types Packs/Day Years [...] None Persons Providing Information : Patient, Other: jerebanner Home Equipment Therapy, PT : Bar, graottoniel, [...] Stand Device : None, Belt, gait, Other: COMMERCIAL SALES CONSULTANT of 1 Stand to Sit Device : None, Belt, gait, Other: COMMERCIAL SALES CONSULTANT of 1 Sit to Supine Devices : Rails, Other: Asst to get BLE back into bed. Functional MobilityComment : Pt sitting EOB with supervision. BERNIE in a sling s/p AICD. He stood and took 4-5 small lateral steps to his R with min COMMERCIAL SALES CONSULTANT of 1. Pt still a little sedated [...] Basic Command Assessment : Pt a little [place] and a little slow to respond to [...] LEE JOLLEY, PT - 03/16/2020 14:11 EDT Admissions Manager Rn Goals Mobility/Bed Mobility LTG PT Grid Goal [...] LEE JOLLEY, PT - 03/16/2020 14:11 EDT [place] PT Charges PT Eval Low Complexity : 1 LEE JOLLEY, PT - 03/16/2020 14:11 EDT Electronically signed by Angel [facility] Conversion Supervisor Of Guidance And Testing Cerner at 12/20/2022 12:16 PM CDT documented in this encounter Plan of Treatment Not on file documented as of this encounter Visit Diagnoses Not on filedocumented in this encounter Care Teams Eye Specialist Relationship Specialty Start Date End Date Allyson Avery APRN [address] [address] PCP - General Nurse Practitioner 02/06/23 documented as of this encounter
--- OUTSIDE RECORDS SUMMARY | 2025-05-17 14:38 | XMS_ITS | Encounter Summary ---
Author Organization [employer] ([place], [place], [place], [place]) Address [address] [place] [address] Care Team Providers Care Oracle Analyst Name Role Phone Bennie Allyson BABCOCK Primary Care Provider Encounter Details Date Type Department Care Team (Late st Contact Info) Description 03/17/2020 Transcribed Document [facility] [place] [address] [place] [address] ProviderTatiana MD [address] [place] [address] Social History Tobacco Use Types Packs/Day Years [...] on filedocumented in this encounter Care Teams Oracle Analyst Relationship Specialty Start Date End Date Allyson Avery, SIFTER OPERATOR [address] [address] PCP - General Nurse Practitioner 02/06/23 documented as of this encounter
--- OUTSIDE RECORDS SUMMARY | 2025-05-17 14:38 | XMS_ITS | Encounter Summary ---
Author Organization [employer] ([place], [place], [place], [place]) Address [address] [place] [address] Care Team Providers Care Tyre Builder Name Role Phone Allyson Avery YOKO Primary Care Provider Encounter Details Date Type Department Care Team (Late st Contact Info) Description 03/15/2020 Transcribed Document [facility] Radiology 1 [place] [address] Jf Gallagher MD [address] [place] [address] [address] [place] [address] Social History Tobacco Use Types Packs/Day Years [...] None Author: JF GALLAGHER MD-INT Subjective PCP: [facility] DOA: 03/13/2020 DOD: HPI: 79 year-old gentleman admitted to the hospital with a near syncopal episode and possibly V. tach CODE STATUS: Modified code as documented in the chart intubation and full treatment but no ACLS CONSULTS: Cardiology, [place] [facility] WORKUP / PROCEDURES: HOSPITAL FOLLOWUP: 03/14/2020 [...] Results Review Radiology Results (Last 48 hours) [id number] -- 03/14/2020 08:12 CT Head WO (03/13/2020 [...] on filedocumented in this encounter Care Teams Tyre Builder Relationship Specialty Start Date End Date Allyson Avery APRN [address] [id number] PCP - General Nurse Practitioner 02/06/23 documented as of this encounter
--- OUTSIDE RECORDS SUMMARY | 2025-05-17 14:38 | XMS_ITS | Encounter Summary ---
Author Organization [employer] ([place], [place], [place], [place]) Address [address] [place] [address] Care Team Providers Care Door Installer Name Role Phone Allyson Avery APRN Primary Care Provider Encounter Details Date Type Department Care Team (Late st Contact Info) Description 03/14/2020 Transcribed Document [facility] [place] [address] [place] [address] ProviderTatiana MD [address] [place] [address] Social History Tobacco Use Types Packs/Day Years [...] 03/14/2020 9:53 EDT Electronically signed by Angel [facility] Conversion Pillowcase Cutter Cerner at 12/20/2022 12:13 PM CDT documented in this encounter Plan of Treatment Not on file documented as of this encounter Visit Diagnoses Not on filedocumented in this encounter Care Teams Door Installer Relationship Specialty Start Date End Date Allyson Avery, YOKO [address] [address] PCP - General Nurse Practitioner 02/06/23 documented as of this encounter
--- OUTSIDE RECORDS SUMMARY | 2025-05-17 14:38 | XMS_ITS | Encounter Summary ---
Author Organization [employer] ([place], [place], [place], [place]) Address [address] [place] [address] Care Team Providers Care Dog Warden Name Role Phone Bennie Allyson BABCOCK Primary Care Provider [phone] Encounter Details Date Type Department Care Team (Late st Contact Info) Description 03/13/2020 Transcribed Document [facility] [place] Family Medicine [address] [place] [address] ProviderTatiana MD [address] [place] [address] Social History Tobacco Use Types Packs/Day Years [...] : None, Other: hearing Primary Language : Faroese Any Spiritual/Cultural Needs or Requests : No [...] Genitourinary Assessment, ED Genitourinary Assessment WDL : [facility] Kimi Mason RN - 03/13/2020 21:52 EDT Neurologic ASMT, ED Neurologic Assessment WDL : WD with exceptions Neurological Symptoms : Dizziness Kimi Mason RN - 03/13/2020 21:52 EDT Electronically signed by Angel [facility] Conversion Laborer Powerhouse Cerner at 12/20/2022 12:07 PM CDT documented in this encounter Plan of Treatment Not on file documented as of this encounter Visit Diagnoses Not on filedocumented in this encounter Care Teams Dog Warden Relationship Specialty Start Date End Date Allyson Avery, YOKO [address] [id number] PCP - General Nurse Practitioner 02/06/23 documented as of this encounter
--- OUTSIDE RECORDS SUMMARY | 2025-05-17 14:38 | XMS_ITS | Encounter Summary ---
Author Organization [employer] ([place], [place], [place], [place]) Address [address] [place] [address] Care Team Providers Care Director Nicu Name Role Phone Allyson Avery APRN Primary Care Provider Encounter Details Date Type Department Care Team (Late st Contact Info) Description 03/17/2020 Transcribed Document [facility] [address] [place] [address] ProviderTatiana MD [address] [place] [address] Social History Tobacco Use Types Packs/Day Years [...] these instructions at home: Medicines ??? Take rtpo-mia-etsulzk and prescription medicines only as told by [...] and water are not available, use hand chief service dispatcher. ? Change your dressing as told by [...] your chest for several days. ??? Take szvm-elt-engjcap and prescription medicines only as told by [...] 05/13/2013 Document Revised: 07/20/2019 Document Reviewed: 07/20/2019 Simple Interactive Patient Education ? 2020 [employer]. documented in this encounter Plan of Treatment Not on file documented as of this encounter Visit Diagnoses Not on filedocumented in this encounter Care Teams Director Nicu Relationship Specialty Start Date End Date Allyson Avery, YOKO [address] [id number] PCP - General Nurse Practitioner 02/06/23 documented as of this encounter
--- OUTSIDE RECORDS SUMMARY | 2025-05-17 14:38 | XMS_ITS | Encounter Summary ---
Author Organization [employer] ([place], [place], [place], [place]) Address [address] [place] [address] Care Team Providers Care Micro Lab Analyst Name Role Phone Allyson Avery APRN Primary Care Provider Encounter Details Date Type Department Care Team (Late st Contact Info) Description 03/13/2020 Transcribed Document [facility] [place] Family Medicine [address] [place] [address] ProviderTatiana MD [address] [place] [address] Social History Tobacco Use Types Packs/Day Years Used Date Smoking Tobacco: Never Assessed Sex and Gender Information Value Date Recorded Sex Assigned at Not on file Legal Sex Male 5:33 PM CDT Gender Identity Not on file Sexual Orientation Not on file documented as of this encounter Miscellaneous Notes * Cerner Conversion Note - Historical ProviderMD - 03/13/2020 9:29 PM CDT [place] Suicide Severity Rating Scale (C-SSRS) Entered On: 03/13/2020 21:44 EDT Performed On: 03/13/2020 21:44 EDT by Salty Wolff RN [place] Suicide Severity Rating Scale (C-SSRS) CSSRS Past [...] on filedocumented in this encounter Care Teams Micro Lab Analyst Relationship Specialty Start Date End Date Allyson Avery, YOKO [address] [id number] PCP - General Nurse Practitioner 02/06/23 documented as of this encounter
--- OUTSIDE RECORDS SUMMARY | 2025-05-17 14:38 | XMS_ITS | Encounter Summary ---
Author Organization [employer] ([place], [place], [place], [place]) Address [address] [place] [address] Care Team Providers Care Liquid Compounder Name Role Phone Allyson Avery APRN Primary Care Provider [phone] Encounter Details Date Type Department Care Team (Late st Contact Info) Description 03/15/2020 Transcribed Document [facility] [place] Family Medicine [address] [place] [address] ProviderTatiana MD [address] [place] [address] Social History Tobacco Use Types Packs/Day Years [...] Associated Diagnoses: None Author: JOSHUA CHAPMAN APRN [facility] CARDIOLOGY PROGRESS NOTE: DIAGNOSIS: 1. VT [...] kg (03/15/20 04:00:00) Routine Weight Entry Format: [place] (03/15/20 04:00:00) Routine Weight Source: Bed scale (03/15/20 04:00:00) Routine Weight, Ounces: 2 oz (03/15/20 04:00:00) Routine Weight, Pounds: 173 lb (03/15/20 04:00:00) [place] Body Weight: 77 kg (03/14/20 08:11:00) Intake [...] echocardiogram revealed new wall motion abnormalities for [facility] today SSS s/p dual chamber PPM HTN HLP Length of time spent facilitating, coordinating providing care greater than 35 minutes documented in this encounter Plan of Treatment Not on file documented as of this encounter Visit Diagnoses Not on filedocumented in this encounter Care Teams Liquid Compounder Relationship Specialty Start Date End Date Allyson Avery, GLASS FORMING ENGINEER [address] [address] PCP - General Nurse Practitioner 02/06/23 documented as of this encounter
--- OUTSIDE RECORDS SUMMARY | 2025-05-17 14:38 | XMS_ITS | Encounter Summary ---
Author Organization [employer] ([place], [place], [place], [place]) Address [address] [place] [address] Care Team Providers Care Project Management Professor Name Role Phone Allyson Avery APRN Primary Care Provider Encounter Details Date Type Department Care Team (Late st Contact Info) Description 03/17/2020 Transcribed Document [facility] [place] Family Medicine [address] [place] [address] ProviderTatiana MD [address] [place] [address] Social History Tobacco Use Types Packs/Day Years [...] on filedocumented in this encounter Care Teams Project Management Professor Relationship Specialty Start Date End Date Allyson Avery, WALLPAPER CLEANER [address] [phone] PCP - General Nurse Practitioner 02/06/23 documented as of this encounter
--- OUTSIDE RECORDS SUMMARY | 2025-05-17 14:38 | XMS_ITS | Encounter Summary ---
[facility] Organization [facility] Address [address] [place] [address] Care Team Providers Care Vice President Of Finance Name Role Phone Allyson Avery APRN Primary Care Provider + [phone] Reason for Visit * Reason Comments Med Refill Encounter Details Date Type Department Care Team (Late st Contact Info) Description 05/01/2025 Refill [facility] CARDIOLOGY [address] [address] Mansoor Silva MD 17[address] [facility] [address] [place] [address] Med Refill Social History Tobacco Use Types [...] Description 07/20/2025 3:45 PM EST Office Visit [facility] ENDOCRINOLOGY [address] [facility] [address] [place] [address] Rosa De Dios MD [address] [facility] [address] [place] [address] 07/26/2025 2:00 PM EST Office Visit [facility] NEUROLOGY [address] [place] [address] Monica Quintero, DNP, FELT PULLER [address] [facility] [address] [place] [address] 10/28/2025 1:30 PM EST Office Visit [facility] CARDIOLOGY [address] [facility] 400 [place] [address] Mansoor Silva MD [address] [facility] [address] [place] [address] documented as of this encounter Visit Diagnoses Not on filedocumented in this encounter Care Teams Vice President Of Finance Relationship Specialty Start Date End Date Allyson Avery APRN [address] [place] [address] PCP - General Internal Medicine 07/22/23 documented as of this encounter
--- OUTSIDE RECORDS SUMMARY | 2025-05-17 14:38 | XMS_ITS | Encounter Summary ---
[facility] Address [address] [place] [address] Care Team Providers Care Director Cost Name Role Phone Allyson Avery LINEN SUPERVISOR Primary Care Provider + [phone] Encounter Details Date Type Department Care Team [...] Visit [facility] END[facility] [address] [facility] [address] [place] [address] Rosa De Dios MD [address] [facility] 100 [place] [address] 07/26/2025 2:00 PM EST [facility] [address] [facility] [address] [place] [address] Monica Quintero, SAMUEL, LINEN SUPERVISOR [address] [facility] [address] [place] [address] 10/28/2025 1:30 PM EST Office Visit [facility] CARDIOLOGY [address] [facility] [address] [place] [address] Mansoor Silva MD 1720 [facility] [address] [place] [address] documented as of this encounter Visit Diagnoses Not on filedocumented in this encounter Care Teams Director Cost Relationship Specialty Start Date End Date Allyson Avery APRN formerly [facility] [address] [address] PCP - General Internal Medicine 07/22/23 documented as of this encounter
--- OUTSIDE RECORDS SUMMARY | 2025-05-17 14:38 | XMS_ITS | Referral Summary ---
Author Organization [employer] ([place], [place], [place], [place]) Address [address] [place] [address] Care Team Providers Care Translator/Interpreter Name Role Phone Allyson Avery APRN Primary [...] Date Roque rded Speak language other than [place]er at home Not on file 09/19/2023 Want [...] MEDICARE PART A B SUPP Care Teams Translator/Interpreter Relationship Specialty Start Date End Date Allyson Avery, YOKO [address] [phone] PCP - General Nurse Practitioner 02/06/23
--- OUTSIDE RECORDS SUMMARY | 2025-05-17 14:38 | XMS_ITS | Encounter Summary ---
Author Organization [employer] ([place], [place], [place], [place]) Address [address] [place] [address] Care Team Providers Care Tax Examining Technician Name Role Phone Allyson Avery APRN Primary Care Provider [phone] Encounter Details Date Type Department Care Team (Late st Contact Info) Description 03/14/2020 Transcribed Document [facility] Family Medicine [address] [place] [address] ProviderTatiana MD [address] [place] [address] Social History Tobacco Use Types Packs/Day Years [...] on filedocumented in this encounter Care Teams Tax Examining Technician Relationship Specialty Start Date End Date Allyson Avery APRN [address] [address] PCP - General Nurse Practitioner 02/06/23 documented as of this encounter
--- OUTSIDE RECORDS SUMMARY | 2025-05-17 14:38 | XMS_ITS | Encounter Summary ---
Author Organization [employer] ([place], [place], [place], [place]) Address [address] [place] [address] Care Team Providers Care Escalator Operator Name Role Phone Allyson Avery APRN Primary Care Provider Encounter Details Date Type Department Care Team (Late st Contact Info) Description 03/15/2020 Transcribed Document [facility] Family Medicine [address] [place] [address] ProviderTatiana MD [address] [place] [address] Social History Tobacco Use Types Packs/Day Years [...] complex coronary disease. PROCEDURE IN DETAIL: RFA, 5-Namibian sheath, 5-Namibian Deo, Multipack, manual compression hemostasis after Mynx device. No adverse events. FINDINGS: LV pressure 148/16. Aortic pressure 150/78. No significant gradient across the aortic valve. LEFT VENTRICULOGRAM: Ventricular study demonstrates akinesia of the inferior wall with severe reduction in cardiac ejection fraction estimated to be between 30% and 35% with good movement of the anterior wall. No mitral insufficiency noted. TANACROSS CORONARY ARTERIOGRAPHY: Left coronary artery: Left main [...] management of ischemic coronary disease and cardiomyopathy. /[id number] Heath Feldman MD JCS/AQ / JCS / MODL /[id number] documented in this encounter Plan of Treatment Not on file documented as of this encounter Visit Diagnoses Not on filedocumented in this encounter Care Teams Escalator Operator Relationship Specialty Start Date End Date Allyson Avery APRN [address] [address] PCP - General Nurse Practitioner 02/06/23 documented as of this encounter
--- OUTSIDE RECORDS SUMMARY | 2025-05-17 14:38 | XMS_ITS | Encounter Summary ---
Author Organization [employer] ([place], [place], [place], [place]) Address [address] [place] [address] Care Team Providers Care Agency Owner Name Role Phone Allyson Avery APRN Primary Care Provider Encounter Details Date Type Department Care Team (Late st Contact Info) Description 03/14/2020 Transcribed Document [facility] [place] Family Medicine [address] [place] [address] ProviderTatiana MD [address] [place] [address] Social History Tobacco Use Types Packs/Day Years [...] 03/14/2020 11:56 EDT Electronically signed by Angel, [facility] Conversion Corporate Scheduler Cerner at 12/20/2022 12:32 PM CDT documented in this encounter Plan of Treatment Not on file documented as of this encounter Visit Diagnoses Not on filedocumented in this encounter Care Teams Agency Owner Relationship Specialty Start Date End Date AveryHien lae, SCHOOL PSYCHOMETRIST [address] [phone] PCP - General Nurse Practitioner 02/06/23 documented as of this encounter
--- OUTSIDE RECORDS SUMMARY | 2025-05-17 14:39 | XMS_ITS | Encounter Summary ---
Author Organization [employer] ([place], [place], [place], [place]) Address [address] [place] [address] Care Team Providers Care Report Programmer Name Role Phone Allyson Avery APRN Primary Care Provider Encounter Details Date Type Department Care Team (Late st Contact Info) Description 03/23/2020 Transcribed Document [facility] [place] [facility] [place] [address] ProviderTatiana MD [address] [place] [address] Social History Tobacco Use Types Packs/Day Years [...] home remote monitoring, and device clinic followup. /[id number] Parish Pérez MD TCR/AQ / TCR / MODL /[id number] documented in this encounter Plan of Treatment Not on file documented as of this encounter Visit Diagnoses Not on filedocumented in this encounter Care Teams Report Programmer Relationship Specialty Start Date End Date Allyson Avery APRN [address] [address] PCP - General Nurse Practitioner 02/06/23 documented as of this encounter
--- OUTSIDE RECORDS SUMMARY | 2025-05-17 14:39 | XMS_ITS | Encounter Summary ---
Author Organization [employer] ([place], [place], [place], [place]) Address [address] [place] [address] Care Team Providers Care Acetylene Torch Solderer Name Role Phone Karlene Avery APRN Primary Care Provider Encounter Details Date Type Department Care Team (Late st Contact Info) Description 03/23/2020 Transcribed Document [facility] [address] [place] [address] ProviderTatiana MD [address] [place] [address] Social History Tobacco Use Types Packs/Day Years Used Date Smoking Tobacco: Never Assessed Sex and Gender Information Value Date Recorded Sex Assigned at Not on file Legal Sex Male 5:33 PM CDT Gender Identity Not on file Sexual Orientation Not on file documented as of this encounter Miscellaneous Notes * Cerner Conversion Note - Tatiana ProviderMD - 03/23/2020 5:56 PM CDT [facility] [place] [address] PAT MENCHACA :1940 Visit Time:03/23/2020 Your Visit Summary Your Care Team Admitting Physician - DUANE JIMENEZ MD-CAR Attending Physician - DUANE JIMENEZ MD-CAR Primary Care Physician - KARLENE AVERY APRN-[facility] Referring Physician - DUANE JIMENEZ MD-CAR [...] When In 12 days 04/04/2020 EDT Where: [address] [place] [address] [place] [address]- Business (1) Medications What How [...] you are awake and alert. ??? Take jegr-gcg-erbdgwt and prescription medicines only as told by [...] 06/09/2014 Document Revised: 01/21/2017 Document Reviewed: 12/08/2016 [employer] Interactive Patient Education ?? 2020 [employer] Pacemaker Implantation, Adult, Care After This [...] these instructions at home: Medicines ??? Take oxey-loz-yrxlfby and prescription medicines only as told by [...] 03/08/2006 Document Revised: 08/19/2019 Document Reviewed: 05/31/2017 [employer] Interactive Patient Education ?? 2020 [employer] Fractured Pacemaker Lead Replacement The most [...] including vitamins, herbs, eye drops, creams, and fbiw-hjt-cfbnrgo medicines. ??? Any problems you or family [...] 09/18/2006 Document Revised: 09/08/2019 Document Reviewed: 07/09/2017 [employer] Interactive Patient Education ?? 2020 [employer] Emergency Awareness and Preventative Care STROKE [...] Assistance with quitting is available by contacting 7-080-SKXB-NOW. This is a free resource providing counseling, support, and referral. Or you may contact your personal physician. [place] Suicide Prevention Lifeline: The National Suicide Prevention [...] was given the opportunity to ask questions. Patient/Machine Setter Sheet Metal Name: Patient/Machine Setter Sheet Metal Signature: Relationship to Patient: Clinician/Hospital Machine Setter Sheet Metal Signature: Date: documented in this encounter Plan of Treatment Not on file documented as of this encounter Visit Diagnoses Not on filedocumented in this encounter Care Teams Acetylene Torch Solderer Relationship Specialty Start Date End Date Hien Averye, DOCTOR'S ASSISTANT [address] [place] [address] PCP - General Nurse Practitioner 02/06/23 documented as of this encounter
--- OUTSIDE RECORDS SUMMARY | 2025-05-17 14:39 | XMS_ITS | Encounter Summary ---
Author Organization [employer] ([place], [place], [place], [place]) Address [address] [place] [address] Care Team Providers Care Strategic Client Executive Name Role Phone Allyson Avery APRN Primary Care Provider Encounter Details Date Type Department Care Team (Late st Contact Info) Description 03/23/2020 Transcribed Document [facility] [place] Family Medicine [address] [place] [address] ProviderTatiana MD [address] [place] [address] Social History Tobacco Use Types Packs/Day Years [...] Source : Measured Height Entry Format : [place] Height, Feet : 5 ft(Converted to: 152 cm, 60 Inch) Height, Inches : 9 Inch(Converted to: 0 ft 9 Inch, 22.86 cm) Clinical Height : 175.26 cm Weight Source : Standing scale Weight Entry Format : [place] Clinical Dosing Weight : 76.36 kg Weight, Pounds : 168 lb Body Surface Area (BSA) : 1.92 m2 Body Mass Index : 24.9 kg/m2 (HI) [place] Body Weight : 70 kg JACE WOOD [...] JACE WOOD RN - 03/23/2020 15:21 EDT [place] Suicide Severity Rating Scale (C-SSRS) CSSRS Past [...] Info Legal Guardian : No Support Person/Patient Package Pick Up : Yes Support Person/Pt Rep Name : Jesika Villar Contact Password : Melissa Support Person/Pt Rep Contact Information : [phone] Want Family/Rep/Phys Notified of Admit : No Emergency Contact #1 : Megan Emergency Contact #1 Emergency Contact #1 Relationship : daughter Emergency Contact #2 : z Emergency Contact #2 Phone Number : z Emergency Contact #2 Relationship : z Primary Language : British Preferred Communication Mode : Verbal Communication Barrier : None Saw Superintendent Needed : No JACE WOOD RN - [...] Scale Risk Level : 25-45 Medium Risk [place] Fall Interventions : Adequate lighting, Assistive devices [...] on filedocumented in this encounter Care Teams Strategic Client Executive Relationship Specialty Start Date End Date Allyson Avery APRN [address] [address] PCP - General Nurse Practitioner 02/06/23 documented as of this encounter
--- OUTSIDE RECORDS SUMMARY | 2025-05-17 14:39 | XMS_ITS | Encounter Summary ---
Author Organization [employer] ([place], [place], [place], [place]) Address [address] [place] [address] Care Team Providers Care Spool Worker Name Role Phone Karlene Avery APRN Primary Care Provider Encounter Details Date Type Department Care Team (Late st Contact Info) Description 03/23/2020 Transcribed Document [facility] Family Medicine [address] [place] [address] ProviderTatiana MD [address] [place] [address] Social History Tobacco Use Types Packs/Day Years Used Date Smoking Tobacco: Never Assessed Sex and Gender Information Value Date Recorded Sex Assigned at Not on file Legal Sex Male 5:33 PM CDT Gender Identity Not on file Sexual Orientation Not on file documented as of this encounter Miscellaneous Notes * [employer]ner Conversion Note - Tatiana ProviderMD - 03/23/2020 6:31 PM CDT [facility] [address] PAT MENCHACA :1940 Visit Time:03/23/2020 Your Visit Summary Your Care Team Admitting Physician - DUANE JIMENEZ MD-CAR Attending Physician - DUANE JIMENEZ MD-CAR Primary Care Physician - KARLENE AVERY APRN-[facility] Referring Physician - DUANE JIMENEZ [...] When In 12 days 04/04/2020 EDT Where: [address] [place] [address] [place] [address]- Business (1) Medications What How [...] you are awake and alert. ??? Take hwlt-efj-puvvcoh and prescription medicines only as told by [...] 06/09/2014 Document Revised: 01/21/2017 Document Reviewed: 12/08/2016 [employer] Interactive Patient Education ?? 2020 [employer]. Pacemaker Implantation, Adult, Care After This [...] these instructions at home: Medicines ??? Take fwvz-xdx-gndmipm and prescription medicines only as told by [...] 03/08/2006 Document Revised: 08/19/2019 Document Reviewed: 05/31/2017 [employer] Interactive Patient Education ?? 2020 [employer]. Fractured Pacemaker Lead Replacement The most [...] including vitamins, herbs, eye drops, creams, and bbnm-kje-tmftvbf medicines. ??? Any problems you or family [...] 09/18/2006 Document Revised: 09/08/2019 Document Reviewed: 07/09/2017 ElseAlterG Interactive Patient Education ?? 2020 [employer]. Emergency Awareness and Preventative Care STROKE [...] Assistance with quitting is available by contacting 5-108-SOOF-NOW. This is a free resource providing counseling, support, and referral. Or you may contact your personal physician. [place] Suicide Prevention Lifeline: The National Suicide Prevention [...] was given the opportunity to ask questions. Patient/Esthetician Spa Name: Patient/Esthetician Spa Signature: Relationship to Patient: Clinician/Hospital Esthetician Spa Signature: Date: documented in this encounter Plan of Treatment Not on file documented as of this encounter Visit Diagnoses Not on filedocumented in this encounter Care Teams Spool Worker Relationship Specialty Start Date End Date Hien Averye, DOGGY DAYCARE ACTIVITIES DIRECTOR [address] [place] [address] PCP - General Nurse Practitioner 02/06/23 documented as of this encounter
--- OUTSIDE RECORDS SUMMARY | 2025-05-17 14:39 | XMS_ITS | Encounter Summary ---
[facility] Address [address] [place] [address] Care Team Providers Care Bullet Casting Operator Name Role Phone Bennie Allyson YOKO Primary Care Provider + [phone] Encounter Details Date Type Department Care Team (Late st Contact Info) Description 03/26/2025 Results Follow-Up [facility] [address] [facility] [address] [place] [address] Rosa De Dios MD [address] [facility] [address] [place] [phone] Social History Tobacco Use Types Packs/Day Years [...] Description 07/20/2025 3:45 PM EST Office Visit [facility] [address] [facility] 100 [place] [address] Rosa De Dios MD [address] [address] 07/26/2025 2:00 PM EST Office Visit [facility] [address] [facility] 201 [place] [id number] Monica Quintero, DNP, MAKEUP SALES ADVISOR [address] [facility] [address] [place] [address] 10/28/2025 1:30 PM EST Office Visit [facility] [address] [facility] 400 [place] [id number] Mansoor Silva MD 17[address] [facility] 400 [place] [address] Scheduled Orders Name Type Priority Associated Diagnoses Orde r Schedule Dexamethasone Level, Serum Lab Routine Elevated cortisol level Expected: 07/30/2025 (Approximate), Expires: 07/08/2026 Cortisol - AM Lab Routine Elevated cortisol level Expected: 07/30/2025 (Approximate), Expires: 07/08/2026 documented as of this encounter Visit Diagnoses Diagnosis Elevated cortisol level- Primary documented in this encounter Care Teams Bullet Casting Operator Relationship Specialty Start Date End Date Allyson Avery APRN [address] [phone] PCP - General Internal Medicine 07/22/23 documented as of this encounter
--- OUTSIDE RECORDS SUMMARY | 2025-05-17 14:39 | XMS_ITS | Clinical Summary ---
Author Organization [employer] ([place], [place], [place], [place]) Address [address] [place] [address] Care Team Providers Care Perforator Typist Name Role Phone Allyson Avery APRN Primary [...] Date Roque rded Speak language other than Dutch at home Not on file 09/19/2023 Want [...] 1-dose 75+ series) 2014 Falls Risk Screening 09/02/2024 COVID-19 VACCINE (2024- season) 2025 10/02/2021, 12/02/2020, 11/03/2020 Influenza Vaccine (#1) 2025 Tobacco Cessation Counseling and Screening (12+) 10/22/2025 10/22/2024 DTAP/TDAP/TD VACCINES (2 - T d or Tdap) 04/18/2032 04/18/2022 Insurance MEDICARE [place] [address] [place] [address] Care Teams Perforator Typist Relationship Specialty Start Date End Date Allyson Avery APRN [address] [address] PCP - General Nurse Practitioner 02/06/23
--- OUTSIDE RECORDS SUMMARY | 2025-05-17 14:39 | XMS_ITS | Encounter Summary ---
[facility] Address [address] [place] [address] Care Team Providers Care Industrial Insulator Name Role Phone Bennie Allyson BABCOCK Primary Care Provider + [phone] Encounter Details Date Type Department Care Team (Late st Contact Info) Description 04/01/2025 Results Follow-Up [facility] [address] [facility] [address] [place] [address] Rosa De Dios MD [address] [facility] [address] [place] [phone] Social History Tobacco Use Types Packs/Day Years [...] Description 07/20/2025 3:45 PM EST Office Visit [facility] [address] [facility] [address] [place] [address] Rosa De Dios MD [address] [facility] [address] [place] [address] 07/26/2025 2:00 PM EST Office Visit [facility] [address] [facility] 201 [place] [address] Monica Quintero, SAMUEL, COMMUNITY HEALTH WORKER [address] [facility] 201 [place], [place] [id number] 10/28/2025 1:30 PM EST Office Visit [facility] [address] [facility] 400 [place] [id number] Mansoor Silva MD [address] [facility] 400 [place] [address] documented as of this encounter Visit Diagnoses Not on filedocumented in this encounter Care Teams Industrial Insulator Relationship Specialty Start Date End Date Allyson Avery APRN [address] [place] [id number] PCP - General Internal Medicine 07/22/23 documented as of this encounter
--- OUTSIDE RECORDS SUMMARY | 2025-05-17 14:39 | XMS_ITS | Encounter Summary ---
Author Organization [employer] ([place], [place], [place], [place]) Address [address] [place] [address] Care Team Providers Care Advertising Executive Name Role Phone Allyson Avery APRN Primary Care Provider Encounter Details Date Type Department Care Team (Late st Contact Info) Description 03/23/2020 Transcribed Document [facility] [address] [place] [address] ProviderTatiana MD [address] [place] [address] Social History Tobacco Use Types Packs/Day Years [...] you are awake and alert. ??? Take yzxk-toj-klmhvwn and prescription medicines only as told by [...] 06/09/2014 Document Revised: 01/21/2017 Document Reviewed: 12/08/2016 [employer] Interactive Patient Education ? 2020 [employer] Procedures Pacemaker Implantation, Adult, Care After [...] these instructions at home: Medicines ??? Take lcfr-ntk-ohzdpku and prescription medicines only as told by [...] 03/08/2006 Document Revised: 08/19/2019 Document Reviewed: 05/31/2017 [employer] Interactive Patient Education ? 2020 [employer] Fractured Pacemaker Lead Replacement The most [...] including vitamins, herbs, eye drops, creams, and todf-uvs-ybcjtlx medicines. ??? Any problems you or family [...] 09/18/2006 Document Revised: 09/08/2019 Document Reviewed: 07/09/2017 [employer] Interactive Patient Education ? 2019 [employer] documented in this encounter Plan of Treatment Not on file documented as of this encounter Visit Diagnoses Not on filedocumented in this encounter Care Teams Advertising Executive Relationship Specialty Start Date End Date Allyson Avery APRN [address] [address] PCP - General Nurse Practitioner 02/06/23 documented as of this encounter
--- OUTSIDE RECORDS SUMMARY | 2025-05-17 14:39 | XMS_ITS | Encounter Summary ---
Author Organization [employer] ([place], [place], [place], [place]) Address [address] [place] [address] Care Team Providers Care Admissions Manager Rn Name Role Phone Allyson Avery APRN Primary Care Provider Encounter Details Date Type Department Care Team (Late st Contact Info) Description 03/23/2020 Transcribed Document [facility] [facility] [address] [place] [address] ProviderTatiana MD [address] [place] [address] Social History Tobacco Use Types Packs/Day Years [...] 03/23/2020 17:55 EDT Electronically signed by Angel [facility] Conversion Content Editor Cerner at 12/20/2022 12:30 PM CDT documented in this encounter Plan of Treatment Not on file documented as of this encounter Visit Diagnoses Not on filedocumented in this encounter Care Teams Admissions Manager Rn Relationship Specialty Start Date End Date Allyson Avery, YOKO [address] [place] [address] PCP - General Nurse Practitioner 02/06/23 documented as of this encounter
--- NOTE | 2025-05-17 15:00 | CT_ITS ---
FINAL REPORT CLINICAL HISTORY: dizziness, hypotension, vision loss COMPARISON: none FINDINGS: CT HEAD TECHNIQUE: Noncontrast exam FINDINGS: Old left occipital infarct. Mild generalized atrophy. No evidence of hemorrhage, mass effect or edema. No extra-axial abnormality is noted. Ventricles and cisterns appear normal. The visualized sinuses, orbits and petrous temporal bones appear unremarkable. IMPRESSION: Unremarkable unenhanced CT of the brain. CTA HEAD TECHNIQUE: Thin section axial CT with contrast with 3D MIP reconstruction FINDINGS: No aneurysm is seen. Major intracranial vessels are patent without significant stenosis. . IMPRESSION: Unremarkable This study was performed using automated techniques to achieve radiation exposure as low as reasonably Reviewed, Interpreted and Dictated by Bailey Burgos MD Transcribed by Greta Elizabeth Authenticated and [facility]
[2025-05-17] MEDS: IOPAMIDOL-370 (76%);100ML BOTTLE 100 ML IV (15:09)
[2025-05-17] MEDS: 0.9 % SODIUM CHLORIDE 50 ML VIAL IV (15:09)
== END 2025-05-17 23:59 | disposition home or self-care (01) ==
LOC: RAD 14:35
PROVIDERS: PCP Nurse Practitioner Family; Visit Provider Nurse Practitioner Family
DX: H54.7 Unspecified visual loss (principal); R53.1 Weakness; I95.9 Hypotension, unspecified
CPT/HCPCS: 70496; Q9967